=== PATIENT | female | born 1975 | race Caucasian/White ===

== ENCOUNTER → 2017-08-25 15:59 | Outpatient (CLI) | payer OTHER, SELFPAY | PROVIDERS: Family Provider Family Medicine; PCP Family Medicine; Visit Provider Otolaryngology Otolaryngology/Facial Plastic Surgery | DX: J32.9 Chronic sinusitis, unspecified (principal) | CPT/HCPCS: 87070; 87077; 87186; 87205 ==

== ENCOUNTER → 2017-12-21 16:55 | Outpatient (CLI) | payer OTHER, SELFPAY | PROVIDERS: Family Provider Family Medicine; PCP Family Medicine; Visit Provider Otolaryngology Otolaryngology/Facial Plastic Surgery | DX: J32.9 Chronic sinusitis, unspecified (principal); H66.90 Otitis media, unspecified, unspecified ear | CPT/HCPCS: 87070; 87077; 87186; 87205 ==

== ENCOUNTER → 2019-06-09 | Outpatient (CLI) | payer BC, SELFPAY | END | disposition home or self-care (01) | LOC: LABSPEC 15:47 | PROVIDERS: PCP Family Medicine; Referring Provider Otolaryngology; Visit Provider Otolaryngology | DX: J32.9 Chronic sinusitis, unspecified (principal) | CPT/HCPCS: 87070; 87077; 87186; 87205 ==

== ENCOUNTER → 2019-07-05 13:46 | Outpatient (CLI) | payer MEDICAID, SELFPAY ==
--- NOTE | 2019-07-05 13:50 | CT_ITS ---
STUDY: CT FACIAL BONES WITHOUT CONTRAST REASON FOR EXAM: Female, 43 years old. SINUSITIS, SEPTOPLASTY RADIATION DOSAGE (If Supplied By Facility): CTDIvol = ( 33.06 ) mGy, DLP = ( 788.40 ) mGycm TECHNIQUE: The patient was scanned in a multi detector CT scanner. Sagittal and coronal images were reconstructed. Individualized dose optimization techniques were used for this CT. COMPARISON: None. FINDINGS: Normal soft tissue structures. Normal orbital redding and orbital contents. Normal nasal bones and anterior nasal spine. Normal facial bones. There is no demonstrated fracture. Minimal degree of mucosal thickening along the medial wall of the left maxillary sinus. Partial opacification of the ethmoid sinuses bilaterally slightly worse on the left side. There is hypertrophy of the right inferior nasal turbinate. Minimal degree of mucosal thickening of the right frontal sinus. CT/Sinus/Facial Bone IMPRESSION: Mild degree mucosal thickening of the right frontal sinus and left maxillary as well as partial opacification of the ethmoid sinuses. Electronically Signed: Fabian Jackson, at 14:31 EDT , Service support ,
== END ==
PROVIDERS: PCP Family Medicine; Referring Provider Otolaryngology; Visit Provider Otolaryngology
DX: J32.9 Chronic sinusitis, unspecified (principal)
CPT/HCPCS: 70486

== ENCOUNTER → 2019-08-30 | Outpatient (CLI) | payer MEDICAID, SELFPAY | END | disposition home or self-care (01) | LOC: LABSPEC 13:17 | PROVIDERS: PCP Family Medicine; Referring Provider Otolaryngology; Visit Provider Otolaryngology | DX: Z11.59 Encounter for screening for other viral diseases (principal) | CPT/HCPCS: 87635; 94799; G2023; U0004 ==

== ENCOUNTER → 2019-10-31 15:24 | Outpatient (CLI) | payer MEDICAID, SELFPAY | PROVIDERS: PCP Family Medicine; Referring Provider Otolaryngology; Visit Provider Otolaryngology | DX: J32.9 Chronic sinusitis, unspecified (principal) | CPT/HCPCS: 87070; 87077; 87186; 87205 ==

== ENCOUNTER 2020-03-12 13:24 | Outpatient (RCR) | payer MEDICAID, SELFPAY | END 2020-03-12 23:59 | LOC: NS 13:24 | PROVIDERS: PCP Family Medicine; Visit Provider Physician Assistant Surgical | DX: Z71.3 Dietary counseling and surveillance (principal); E66.8 Other obesity; Z68.43 Body mass index [BMI] 50.0-59.9, adult | CPT/HCPCS: 97802 ==

== ENCOUNTER 2024-12-05 07:08 | Day surgery (SDC) | payer BC, SELFPAY ==
--- NOTE | 2024-12-01 13:48 | PAT.ANESEVAL ---
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 When Was Last Pacemaker Check QUESTION #4 FULL TEXT: You/Your Family Experience fever (hyperthermia) with Anesthesia Last Oral Intake Last Oral intake: Last Oral Intake NPO since Meds taken in AM with sips of water? 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 Has anyone observed you stop No 12/01/24 10:35 breathing during sleep? STOP Results Negative 12/01/24 10:35 QUESTION #5 FULL TEXT : Do you snore loudly (louder than talking or can be heard through closed doors)? 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 Specify any problems Hx of Preganancy in last 3 No 12/01/24 10:35 Months Nurse Filling Out Transfusion VLEHMOIRA 12/01/24 10:35 & Questions: Date: 12/01/24 12/01/24 10:35 Time: 10:46 12/01/24 10:35 Patient unable to answer at this time (ie. 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 operator Hx Now No 12/01/24 10:35 Gestational Age (in weeks): EDC: Hx Hx Para Hx Section SAB No 12/01/24 10:35 [facility] Medical History (Updated 12/01/24 @ 10:53 by Kimmy Pate) H/O psoriasis Post-menopausal Wears glasses Depression Anxiety Bruising History of steroid therapy Rheumatoid arthritis DVT (deep venous thrombosis) Easy bruising Migraine headache H/O hemorrhoids History of IBS History of diverticulitis Gastric reflux Shortness of breath on exertion History of echocardiogram Hypertension Home Medications ?Medication ?Instructions ?Recorded ?Last Taken ?Type cholecalciferol (vitamin D3) 1,250 1,250 mcg PO QWEEK 10/13/24 Unknown History mcg (50,000 unit) capsule clonazepam 1 mg tablet 1 mg PO 4X/DAY PRN anxiety 10/13/24 Unknown History dicyclomine 20 mg tablet 20 mg PO TID 10/13/24 Unknown History escitalopram oxalate 20 mg tablet 20 mg PO QDAY 10/13/24 Unknown History hydroxychloroquine 200 mg tablet 200 mg PO BID 10/13/24 Unknown History metoprolol tartrate 25 mg tablet 25 mg PO BID 10/13/24 Unknown History pantoprazole 40 mg tablet,delayed 40 mg PO BID 10/13/24 Unknown History release Allergy/AdvReac Type Severity Reaction Status Date / Time Sulfa (Sulfonamide Allergy NEEDS Verified 12/01/24 10:30 Antibiotics) FOLLOW-UP sulfamethoxazole (From Allergy NEEDS Verified 12/01/24 10:30 Bactrim) FOLLOW-UP trimethoprim (From Bactrim) Allergy NEEDS Verified 12/01/24 10:30 FOLLOW-UP Surgical History (Updated 12/01/24 @ 10:43 by Kimmy Pate) History of surgery History of nasal septoplasty History of cholecystectomy History of carpal tunnel release of both wrists Social History Smoking Status: Never smoker Audit: Pertinent Findings Pertinent Findings EKG Perinent findings: EKG dated 10/28/2023: Sinus rhythm, prolonged [place] interval. Echo (EF%) pertinent findings: Echocardiogram completed 11/27/2023 1. Left ventricle: The cavity size is normal wall thickness is normal. Systolic function is normal. The estimated ejection fraction is 60 to 65%. Wall motion is normal; there are no regional wall motion abnormalities. Normal diastolic function. 2 aortic valve: Thickening, consistent with sclerosis. 3. Right ventricle: Systolic pressure is mildly increased. The RV systolic pressure is by Doppler and is 40 mmHg. 4. Right atrium: The estimated right atrial pressure is 3 mmHg Recommendation Anesthesia Recommendation Anesthesia recommendation: OPTIMIZED for anesthesia
[2024-12-05] VITALS (10 sets, daily range): BP systolic 105–116; BP diastolic 64–76; PULSE 66–71; RESP 16–20; TEMP 36.4–36.5; O2SAT 94–96; BMI 58.3
--- OUTSIDE RECORDS SUMMARY | 2024-12-05 07:12 | XMS RPT_ITS | CCD ---
Author Organization [facility] Care Team Providers Care Turbine Engine Assembler Name Role Phone BERNA MICHEL MD Primary Care Physician Radha PT, Cristina Unavailable Unavailable BERNA MICHEL MD Attending Unavailable BERNA MICHEL MD Primary Care Unavailable BERNA MICHEL MD Attending Unavailable BERNA MICHEL MD Primary Care Unavailable BERNA MICHEL MD Attending Unavailable BERNA MICHEL MD Primary Care Unavailable BERNA MICHEL MD Attending Unavailable BERNA MICHEL MD Primary Care Unavailable DR ROMAINE CARR DO Attending UnavailBERNA Smith MD Primary Care Unavailable BERNA MICHEL MD Attending Unavailable BERNA MICHEL MD Primary Care Unavailable BERNA MICHEL MD Primary Care Unavailable BERNA MICHEL MD Attending Unavailable BERNA MICHEL MD Primary Care Unavailable BERNA MICHEL MD Attending Unavailable BERNA MICHEL MD Attending Unavailable BERNA MICHEL MD Primary Care Unavailable Berna Michel MD Primary Care Provider BERNA MICHEL Primary Care Unavailable EVANS BURDICK Attending Unavailable Dr. Berna Michel MD Primary Care Provider [phone] Dr. Berna Michel MD Referring Provider Peace Gibbs Attending Provider BERNA MICHEL MD Primary Care Unavailable BERNA MICHEL MD Attending Unavailable BERNA MICHEL MD Primary Care Unavailable BERNA MICHEL MD Attending Unavailable BERNA MICHEL MD Primary Care Unavailable BERNA MICHEL MD Attending Unavailable BERNA MICHEL MD Attending Unavailable BERNA MICHEL MD Primary Care Unavailable BERNA MICHEL MD Primary Care Unavailable BERNA MICHEL MD Attending Unavailable BERNA MICHEL MD Primary Care Unavailable CHAR [place], DR MARY CARMEN Gómez Attending UnavailPHIL Portillo MD Attending Unavail BERNA Logan MD Primary Care Unavailable Friend, Jose Attending Unavailable Berna Michel Referring Unavailable Berna Michel Primary Care Unavailable Berna Michel Referring Unavailable Berna Michel Primary Care Unavailable Peace Beaver Attending Unavailable Allergies Allergy Classification Reported Allergen(s) Allergy Type Date of Onset Reaction(s) Facility (13 sources) Propofol; Translations: [propofol] Drug Allergy 07-12-19 Anxiety (finding), Intolerance, Other: See Comments [facility] Comment on above: extreme restlessness (13 sources) Sulfamethoxazole / Trimethoprim; Translations: [sulfamethoxazole-t rimethoprim] Drug Allergy 07-12-19 25 Other: See Comments [facility] (12 sources) Sulfonamides (Antibiotic); Translations: [sulfa drugs] Drug allergy [facility] Comment on above: blood blisters (2 sources) Sulfonamides (Antibiotic); Translations: [SULFA (SULFONAMIDE ANTIBIOTICS)] Drug Allergy 05-29-19 Rash, Unknown [facility] (1 source) Propofol; Translations: [PROPOFOL ANALOGUES] Propensity to adverse reactions to drug (disorder) 07-12-19 [facility] Repository (1 source) Sulfamethoxazole / Trimethoprim; Translations: [SULFAMETHOXAZOLE-T RIMETHOPRIM] Drug Allergy 07-12-19 [facility] Repository (1 source) Sulfamethoxazole Drug Allergy 10-14-19 NEEDS FOLLOW-UP [facility] (1 source) Sulfonamides (Antibiotic) Allergy to substance 10-14-19 NEEDS FOLLOW-UP [facility] (1 source) Trimethoprim Drug Allergy 10-14-19 NEEDS FOLLOW-UP [facility] (1 source) Sulfamethoxazole Drug Allergy 12-02-19 [facility] Repository (1 source) Sulfonamides (Antibiotic) Drug allergy (disorder) 12-02-19 [facility] Repository (1 source) Trimethoprim Drug Allergy 12-02-19 [facility] Repository Medications Current Medications Medication Drug Class(es) Dates Sig (Normalized) Sig (Original) acetaminophen 300 mg / butalbital 50 mg / caffeine 40 mg oral capsule (3 sources) Barbiturate, Central Nervous System Stimulant, Methylxanthine Start: 05-21-2023 take 1 capsule by mouth every four hours as needed for headache acetaminophen/but albital/caffeine 300 mg-50 mg-40 mg oral capsule Dose = 2 cap(s), Oral, q4h, PRN for headache, # 30 cap(s), 1 Refill(s), Pharmacy: [facility] #[id number], Benign essential hypertension Chronic migraine without aura, with intractable migraine, so stated, with status migrainosus, 158, cm, 05/21/23 7:03:00 EST, Height, kg, 05/21/23 7:03:00 EST, Dosing Weight Start Date: 05/21/23 Status: Ordered albuterol 0.83 mg/ml inhalation solution (9 sources) beta2-Adrenergic Agonist Start: 11-25-2023 albuterol (PROVENTIL) 2.5 mg /3 mL (0.083 %) nebulizer solution 2.5 mg as needed. 11/25/2023 Active Start: 11-25-2023 take 1 dose by inhal ation every six hours as needed albuterol 2.5 mg/3 mL (0.083%) inhalation solution Dose : 2.5 mg = 3 mL, Inhalation, q6h, PRN as needed for wheezing, # 1,080 mL, 3 Refill(s), Pharmacy: [facility] #[id number], Benign essential hypertension, 158, cm, 11/05/23 7:04:00 EDT, Height, kg, 11/05/23 7:04:00 EDT, Dosing Weight Start Date: 11/25/23 Status: Ordered Quantity: 1080.0 Unit: mL Repeat number: 4 Indications: Essential (primary) hypertension; Start: 09-26-2022 take 1 dose by inhal ation every six hours as needed albuterol 2.5 mg/3 mL (0.083%) inhalation solution Dose : 2.5 mg = 3 mL, Inhalation, q6h, PRN as needed for wheezing, # 90 mL, 0 Refill(s), Pharmacy: [facility] #[id number], Benign essential hypertension, 159, cm, 09/26/22 7:30:00 EDT, Height Start Date: 09/26/22 Status: Ordered cholecalciferol 1.25 mg oral capsule (1 source) Vitamin D Start: 10-13-2024 take 1 capsule by mouth every week Cholecalciferol (Vitamin D3) 1,250 mcg (50,000 unit) capsule Active 1250 ug PO EVERY WEEK October 13, 2024 12:00am ciprofloxacin 750 mg oral tablet (1 source) Quinolone Antimicrobial Start: 12-26-2022 End: 01-16-2023 ciprofloxacin 750 mg oral tablet Dose : 750 mg = 1 tab(s), Oral, q12h, X 21 day(s), # 42 tab(s), 0 Refill(s), 01/16/23 8:41:00 AM EDT, Pharmacy: [facility] #[id number], Chronic sinusitis Iron deficiency anemia, 159, cm, 12/26/22 7:26:00 EDT, Height, 149.2, kg, 12/26/22 7:26:00 EDT, Dosing Weight Start Date: 12/26/22 Stop Date: 01/16/23 Status: Ordered clonazePAM 1 mg oral tablet (14 sources) Benzodiazepine Start: 10-13-2024 take 1 tablet by mouth four times daily Clonazepam 1 mg tablet Active 1 mg PO 4 TIMES DAILY October 13, 2024 12:00am Start: 07-28-2024 End: 01-24-2025 clonazePAM 1 mg oral tablet Dose : 1 mg = 1 tab(s), Oral, QID, # 360 tab(s), 1 Refill(s), Pharmacy: [facility] #[id number], Anxiety, 155.8, cm, 07/28/24 15:53:00 EDT, Height, 148.8, kg, 07/28/24 15:53:00 EDT, Dosing Weight Start Date: 07/28/24 Stop Date: 01/24/25 Status: Ordered Quantity: 360.0 Unit: tab(s) Repeat number: 2 Indications: Anxiety disorder, unspecified; Start: 10-23-2023 End: 02-23-2024 clonazePAM 1 mg oral tablet Dose : 1 mg = 1 tab(s), Oral, QID, # 360 tab(s), 0 Refill(s), Pharmacy: [facility] #[id number], Anxiety, 158, cm, 11/05/23 7:04:00 EDT, Height, 154.8, kg, 11/05/23 7:04:00 EDT, Dosing Weight Start Date: 11/25/23 Stop Date: 02/23/24 Status: Ordered Start: 05-30-2022 End: 02-17-2023 clonazePAM 1 mg oral tablet Dose : 1 mg = 1 tab(s), Oral, TID, as needed, # 270 tab(s), 0 Refill(s), Pharmacy: [facility] #[id number], Anxiety, 159, cm, 09/26/22 7:30:00 EDT, Height, 147.2, kg, 09/26/22 7:30:00 EDT, Dosing Weight Start Date: 11/19/22 Stop Date: 02/17/23 Status: Ordered Start: 09-05-2021 End: 12-04-2021 clonazePAM 1 mg oral tablet Dose : 1 mg = 1 tab(s), Oral, TID, as needed, # 270 tab(s), 0 Refill(s), Pharmacy: [facility] Anxiety, 160, cm, 06/04/21 7:27:00 EST, Height, 129.2, kg, 06/04/21 7:27:00 EST, Dosing Weight Start Date: 09/05/21 Stop Date: 12/04/21 Status: Ordered Start: 02-11-2021 End: 05-12-2021 clonazePAM 1 mg oral tablet Dose : 1 mg = 1 tab(s), Oral, TID, as needed, # 270 tab(s), 0 Refill(s), Pharmacy: [facility] Anxiety, 155, cm, 01/02/21 17:11:00 EDT, Height, 124.4, kg, 01/02/21 17:11:00 EDT, Dosing Weight Start Date: 02/11/21 Stop Date: 05/12/21 Status: Ordered dicyclomine hydrochloride 20 mg oral tablet (14 sources) Anticholinergic Start: 10-13-2024 take 1 tablet by mouth three times daily Dicyclomine 20 mg tablet Active 20 mg PO THREE TIMES A DAY October 13, 2024 12:00am Start: 11-25-2023 End: 01-24-2024 dicyclomine 20 mg oral table t Dose : 20 mg = 1 tab(s), Oral, TID, # 90 tab(s), 1 Refill(s), Pharmacy: [facility] #[id number], Benign essential hypertension Acute sinusitis, 158, cm, 11/05/23 7:04:00 EDT, Height, kg, 11/05/23 7:04:00 EDT, Dosing Weight Start Date: 11/25/23 Stop Date: 01/24/24 Status: Ordered Quantity: 90.0 Unit: tab(s) Repeat number: 2 Indications: Acute sinusitis, unspecified; Essential (primary) hypertension; Start: 05-21-2023 End: 07-20-2023 dicyclomine 20 mg oral table t Dose : 20 mg = 1 tab(s), Oral, TID, # 90 tab(s), 1 Refill(s), Pharmacy: [facility] #[id number], Benign essential hypertension Acute sinusitis, 158, cm, 05/21/23 7:03:00 EST, Height, kg, 05/21/23 7:03:00 EST, Dosing Weight Start Date: 05/21/23 Stop Date: 07/20/23 Status: Ordered Start: 08-28-2022 End: 11-25-2022 dicyclomine 20 mg oral table t Dose : 20 mg = 1 tab(s), Oral, TID, # 90 tab(s), 1 Refill(s), Pharmacy: [facility] #[id number], Benign essential hypertension Acute sinusitis, 159, cm, 09/26/22 7:30:00 EDT, Height, kg, 09/26/22 7:30:00 EDT, Dosing Weight Start Date: 09/26/22 Stop Date: 11/25/22 Status: Ordered Start: 05-30-2022 End: 07-29-2022 dicyclomine 20 mg oral table t Dose : 20 mg = 1 tab(s), Oral, TID, # 90 tab(s), 1 Refill(s), Pharmacy: [facility] #[id number], Benign essential hypertension Acute sinusitis, 158.6, cm, 05/30/22 7:30:00 EST, Height Start Date: 05/30/22 Stop Date: 07/29/22 Status: Ordered Start: 11-12-2021 dicyclomine 10 mg oral capsule Dose : 10 mg = 1 cap(s), Oral, QID, PRN abdominal discomfort, # 120 cap(s), 0 Refill(s), Pharmacy: [facility] #[id number], 160, cm, 06/04/21 7:27:00 EST, Height Start Date: 11/12/21 Status: Ordered Start: 03-04-2021 End: 03-14-2021 dicyclomine 10 mg oral capsu le Dose : 10 mg = 1 cap(s), Oral, QID, PRN abdominal discomfort, 0 Refill(s) Start Date: 03/04/21 Stop Date: 03/14/21 Status: Ordered escitalopram 20 mg oral tablet (14 sources) Serotonin Reuptake Inhibitor Start: 10-13-2024 take 1 tablet by mouth once daily Escitalopram Oxalate 20 mg tablet Active 20 mg PO daily October 13, 2024 12:00am Start: 09-27-2024 escitalopram 2 0 mg oral tablet Dose : 20 mg = 1 tab(s), Oral, Daily, # 90 tab(s), 3 Refill(s), Pharmacy: [facility] #[id number], Depression, major, recurrent, in remission, 155.8, cm, 09/12/24 13:03:00 EDT, Height, kg, 09/12/24 13:39:00 EDT, Dosing Weight Start Date: 09/27/24 Status: Ordered Quantity: 90.0 Unit: tab(s) Repeat number: 4 Indications: Major depressive disorder, recurrent, in remission, unspecified; Start: 05-30-2020 escitalopram 2 0 mg oral tablet Dose : 20 mg = 1 tab(s), Oral, Daily, # 90 tab(s), 3 Refill(s), Pharmacy: [facility] #[id number], Depression, major, recurrent, in remission, 158, cm, 11/05/23 7:04:00 EDT, Height, kg, 11/05/23 7:04:00 EDT, Dosing Weight Start Date: 11/25/23 Status: Ordered Quantity: 90.0 Unit: tab(s) Repeat number: 4 Indications: Major depressive disorder, recurrent, in remission, unspecified; hydroCHLOROthiazide 25 mg oral tablet (1 source) Thiazide Diuretic Start: 01-08-2024 hydroCHLOROthiazide 25 mg oral tablet Dose : 25 mg = 1 tab(s), Oral, qDay, # 30 tab(s), 0 Refill(s), Pharmacy: [facility] #[id number], 158, cm, 12/01/23 11:29:00 EDT, Height, kg, 12/01/23 11:29:00 EDT, Dosing Weight Start Date: 01/08/24 Status: Ordered hydrocortisone acetate 25 mg rectal suppository (1 source) Corticosteroid Start: 07-03-2022 hydrocortisone (HEMORRHOIDAL HC) 25 mg suppository insert 1 suppository rectally at bedtime for 10 NIGHTS 07/03/2022 Active hydroxychloroquine sulfate 200 mg oral tablet (15 sources) Antimalarial, Antirheumatic Agent Start: 10-13-2024 take 1 tablet by mouth twice daily Hydroxychloroquine 200 mg tablet Active 200 mg PO TWICE A DAY October 13, 2024 12:00am Start: 12-03-2020 End: 07-11-2024 hydroxychloroquine 200 mg or al tablet Dose : 200 mg = 1 tab(s), Oral, BID, 0 Refill(s) Start Date: 12/03/20 Status: Ordered Repeat number: 1 K2-D3 5000 125 mcg (5000 intl units)-90 mcg oral capsule (3 sources) Start: 09-12-2024 K2-D3 5000 125 mcg (5000 intl units)-90 mcg oral capsule Dose = 1 cap(s), Oral, qDayM, # 60 cap(s), 0 Refill(s) Start Date: 09/12/24 Status: Ordered Quantity: 60.0 Unit: cap(s) Repeat number: 1 meloxicam 15 mg oral tablet (3 sources) Nonsteroidal Anti-inflammatory Drug Start: 12-03-2020 End: 11-28-2021 meloxicam 15 mg oral tablet Dose : 15 mg = 1 tab(s), Oral, qDay, # 90 tab(s), 3 Refill(s), Pharmacy: [facility] 158, cm, 12/03/20 10:06:00 EDT, Height, kg, 12/03/20 10:06:00 EDT, Dosing Weight Start Date: 12/03/20 Stop Date: 11/28/21 Status: Ordered metoprolol tartrate 25 mg oral tablet (14 sources) beta-Adrenergic Sandoval Start: 10-13-2024 take 1 tablet by mouth twice daily Metoprolol Tartrate 25 mg tablet Active 25 mg PO TWICE A DAY October 13, 2024 12:00am Start: 05-30-2020 End: 03-03-2024 metoprolol tartrate 25 mg or al tablet Dose : 25 mg = 1 tab(s), Oral, BID, # 180 tab(s), 3 Refill(s), Pharmacy: [facility] #[id number], 158, cm, 11/05/23 7:04:00 EDT, Height, kg, 11/05/23 7:04:00 EDT, Dosing Weight Start Date: 11/25/23 Stop Date: 03/03/24 Status: Ordered Quantity: 180.0 Unit: tab(s) Repeat number: 4 ondansetron 4 mg oral tablet (4 sources) Serotonin-3 Receptor Antagonist Start: 09-12-2024 End: 09-13-2025 ondansetron 4 mg oral tablet Dose : 4 mg = 1 tab(s), Oral, q6h, PRN Nausea/Vomiting, # 20 tab(s), 0 Refill(s), 09/13/25 2:51:00 PM EDT Start Date: 09/12/24 Stop Date: 09/13/25 Status: Ordered Quantity: 20.0 Unit: tab(s) Repeat number: 1 Start: 10-12-2021 End: 10-17-2021 take 1 tablet by mouth every eight hours Zofran ODT use ondansetron oral tablet, disintegrating Dose : 4 mg =, Oral, q8h, # 15 tab(s), 0 Refill(s), Diverticulitis Start Date: 10/12/21 Stop Date: 10/17/21 Status: Ordered pantoprazole 40 mg delayed release oral tablet (15 sources) Proton Pump Inhibitor Start: 05-30-2022 End: 05-18-2025 take 1 tablet by mouth twice daily Pantoprazole 40 mg tablet,delayed release (DR/EC) Active 40 mg PO TWICE A DAY October 13, 2024 12:00am Start: 08-29-2020 End: 05-11-2022 pantoprazole 40 mg oral ente rodney coated tablet Dose : 40 mg = 1 tab(s), Oral, BID, # 60 tab(s), 5 Refill(s), Pharmacy: [facility] #[id number], 160, cm, 06/04/21 7:27:00 EST, Height, kg, 06/04/21 7:27:00 EST, Dosing Weight Start Date: 11/12/21 Stop Date: 05/11/22 Status: Ordered phentermine hydrochloride 37.5 mg oral tablet (3 sources) Sympathomimetic Amine Anorectic Start: 10-23-2023 End: 02-23-2024 phentermine 37.5 mg oral tablet Dose : 37.5 mg = 1 tab(s), Oral, qAM, X 30 day(s), # 30 tab(s), 2 Refill(s), 02/23/24 7:35:00 AM EST, Pharmacy: [facility] #[id number], Morbid obesity with body mass index of 50 or higher, 158, cm, 11/05/23 7:04:00 EDT, Height, 154.8, kg, 11/05/23 7:04:00 EDT, Dosing Weight Start Date: 11/25/23 Stop Date: 02/23/24 Status: Ordered polyethylene glycol 3350 39084 mg powder for oral solution (1 source) Osmotic Laxative Start: 06-29-2022 End: 07-06-2022 take 17 doses by mouth once daily Miralax Powder Packet Dose : 17 gram(s) =, Oral, qDay, X 7 day(s), # 255 gram(s), 0 Refill(s), 07/06/22 13:19:00 EDT Start Date: 06/29/22 Stop Date: 07/06/22 Status: Ordered pseudoephedrine hydrochloride 30 mg oral tablet (1 source) alpha-Adrenergic Agonist pseudoephedrine (SUDAFED) 30 mg tablet 1 tablet. Active Vitamin D3 1250 mcg (50,000 intl units) oral capsule (5 sources) Start: 11-25-2023 End: 11-19-2024 Vitamin D3 1250 mcg (50,000 intl units) oral capsule Dose : 1,250 mcg = 1 cap(s), Oral, qWeek, # 13 cap(s), 3 Refill(s), Pharmacy: [facility] #[id number], Benign essential hypertension, 158, cm, 11/05/23 7:04:00 EDT, Height, kg, 11/05/23 7:04:00 EDT, Dosing Weight Start Date: 11/25/23 Stop Date: 11/19/24 Status: Ordered Quantity: 13.0 Unit: cap(s) Repeat number: 4 Indications: Essential (primary) hypertension; Start: 11-25-2023 End: 11-19-2024 Vitamin D3 1250 mcg (50,000 intl units) oral capsule Dose : 1,250 mcg = 1 cap(s), Oral, qWeek, # 13 cap(s), 3 Refill(s), Pharmacy: [facility] #[id number], Benign essential hypertension, 158, cm, 11/05/23 7:04:00 EDT, Height, kg, 11/05/23 7:04:00 EDT, Dosing Weight Start Date: 11/25/23 Stop Date: 11/19/24 Status: Ordered Start: 09-26-2022 End: 09-21-2023 Vitamin D3 1250 mcg (50,000 intl units) oral capsule Dose : 1,250 mcg = 1 cap(s), Oral, qWeek, # 13 cap(s), 3 Refill(s), Pharmacy: [facility] #[id number], Benign essential hypertension, 159, cm, 09/26/22 7:30:00 EDT, Height Start Date: 09/26/22 Stop Date: 09/21/23 Status: Ordered vitamin D3-vitamin K2 1,250- 200 mcg cap (1 source) Start: 11-25-2023 End: 11-19-2024 vitamin D3-vitamin K2 1,250- 200 mcg cap Take by mouth once daily. 11/25/2023 11/19/2024 Active Completed/Discontinued Medications Medication Drug Class(es) Dates Sig (Normalized) Sig (Original) apixaban 5 mg oral tablet (2 sources) Factor Xa Inhibitor Start: 10-28-2023 End: 11-27-2023 Eliquis Starter Pack for Treatment of DVT and PE 5 mg oral tablet [10mg BID x 7days-then 5mg BID], Oral, BID, # 74 tab(s), 0 Refill(s), DVT Treatment Dosing, Pharmacy: [facility] #[id number], 158, cm, 10/23/23 9:04:00 EDT, Height, 156, kg, 10/23/23 9:04:00 EDT, Dosing Weight Start Date: 10/28/23 Stop Date: 11/27/23 Status: Ordered ferrous gluconate 324 mg oral tablet (8 sources) Start: 10-23-2023 End: 05-23-2024 ferrous gluconate 324 mg (38 mg elemental iron) oral tablet Dose : 324 mg = 1 tab(s), Oral, BID, # 180 tab(s), 1 Refill(s), Pharmacy: [facility] #[id number], Chronic sinusitis Iron deficiency anemia, 158, cm, 11/05/23 7:04:00 EDT, Height, kg, 11/05/23 7:04:00 EDT, Dosing Weight Start Date: 11/25/23 Stop Date: 05/23/24 Status: Ordered Quantity: 180.0 Unit: tab(s) Repeat number: 2 Indications: Chronic sinusitis, unspecified; Iron deficiency anemia, unspecified; Start: 12-26-2022 End: 06-24-2023 ferrous gluconate 324 mg (38 mg elemental iron) oral tablet Dose : 324 mg = 1 tab(s), Oral, BID, # 180 tab(s), 1 Refill(s), Pharmacy: [facility] #[id number], Chronic sinusitis Iron deficiency anemia, 159, cm, 12/26/22 7:26:00 EDT, Height, kg, 12/26/22 7:26:00 EDT, Dosing Weight Start Date: 12/26/22 Stop Date: 06/24/23 Status: Ordered Problems Active Problems Problem Classification Problem Date Documented Da te Episodic/Chronic Abdominal pain (5 sources) Abdominal pain; Translations: [Unspecified abdominal pain] Onset: 2 Episodic Anxiety disorders (19 sources) Anxiety; Translations: [Generalized anxiety disorder] 11-25-2018 Chronic Deficiency and other anemia (8 sources) Iron deficiency anemia 12-26-2022 Episodic Deficiency and other anemia (6 sources) Anemia 11-05-2023 Episodic Disorders of lipid metabolism (20 sources) Hypercholesterolemia; Translations: [Mixed hyperlipidemia] Onset: 3 10-26-2014 Chronic Esophageal disorders (13 sources) Gastroesophageal reflux disease; Translations: [Gastro-esophageal reflux disease without esophagitis] 10-26-2014 Chronic Essential hypertension (20 sources) Benign essential hypertension; Translations: [Hypertensive disorder] Onset: 3 12-21-2018 Chronic Gastrointestinal hemorrhage (1 source) Hemorrhage of rectum and anus; Translations: [Hemorrhage of anus and rectum] Onset: 3 Episodic Headache; including migraine (12 sources) Refractory migraine without aura 11-25-2018 Chronic Mood disorders (20 sources) Depressive disorder; Translations: [Major depressive disorder] Onset: 5 10-26-2014 Chronic Nutritional deficiencies (8 sources) Vitamin D deficiency 09-26-2022 Chronic Other and unspecified benign neoplasm (4 sources) History of adenomatous polyp of colon 07-28-2024 Episodic Other and unspecified benign neoplasm (1 source) History of polyp of colon; Translations: [History of colonic polyps] 10-13-2024 Episodic Other gastrointestinal disorders (20 sources) Irritable bowel syndrome 11-25-2018 Chronic Other gastrointestinal disorders (1 source) H/O: gastrointestinal disease; Translations: [Personal history of other diseases of the digestive system] 07-11-2024 Episodic Other gastrointestinal disorders (1 source) Personal history of other diseases of the digestive system; Translations: [History of diverticulosis] Onset: 5 Episodic Other gastrointestinal disorders (1 source) Constipation; Translations: [Constipation, unspecified] 10-13-2024 Episodic Other inflammatory condition of skin (7 sources) Psoriasis 03-26-2023 Chronic Other lower respiratory disease (12 sources) Snoring 03-04-2021 Episodic Other lower respiratory disease (1 source) Dyspnea; Translations: [Dyspnea, unspecified] Onset: 4 Episodic Other lower respiratory disease (7 sources) Dyspnea on exertion; Translations: [Other forms of dyspnea] 11-05-2023 Episodic Other lower respiratory disease (6 sources) Wheezing 11-05-2023 Episodic Other lower respiratory disease (1 source) Hypoxia; Translations: [Hypoxemia] 07-11-2024 Episodic Other lower respiratory disease (1 source) Other forms of dyspnea; Translations: [MUNOZ (dyspnea on exertion)] Onset: 5 Episodic Other lower respiratory disease (1 source) Hypoxemia; Translations: [Hypoxia] Onset: 5 Episodic Other nutritional; endocrine; and metabolic disorders (9 sources) Morbid obesity 05-30-2022 Chronic Other upper respiratory infections (8 sources) Chronic sinusitis 12-26-2022 Chronic Other upper respiratory infections (9 sources) Acute sinusitis 05-30-2022 Episodic Pleurisy; pneumothorax; pulmonary collapse (6 sources) Atelectasis 11-05-2023 Episodic Rheumatoid arthritis and related disease (2 sources) Rheumatoid arthritis, unspecified; Translations: [Rheumatoid arthritis, unspecified] Onset: 3 Chronic Unclassified (12 sources) Blood clot (morphologic abnormality) 10-26-2014 Comment on above: right foot Unclassified (4 sources) Pain of knee region 07-28-2024 Unclassified (4 sources) Patient encounter status 07-28-2024 Unclassified (1 source) Personal history of colon polyps, unspecified; Translations: [Personal history of colon polyps, unspecified] Onset: 5 Viral infection (9 sources) Disease caused by 2019-nCoV 03-08-2022 Past or Other Problems Problem Classification Problem Date Documented Da te Episodic/Chronic Deficiency and other anemia (2 sources) Anemia, unspecified; Translations: [Anemia, unspecified] Onset: 12-22-2022 Episodic Nausea and vomiting (13 sources) Postoperative nausea and vomiting; Translations: [Vomiting, unspecified] Onset: 07-11-2024 03-04-2021 Episodic Other gastrointestinal disorders (1 source) Diarrhea, unspecified; Translations: [Diarrhea, unspecified] Onset: 07-11-2024 Episodic Other lower respiratory disease (1 source) Shortness of breath; Translations: [Shortness of breath] Onset: 08-05-2024 Episodic Other non-traumatic joint disorders (2 sources) Pain in right knee; Translations: [Pain of right knee joint] Onset: 08-05-2024 Episodic Other screening for suspected conditions (not mental disorders or infectious disease) (10 sources) D-dimer above reference range; Translations: [Encounter for screening mammogram for malignant neoplasm of breast] Onset: 08-05-2024 10-28-2023 Episodic Results Test Name Value Interpretation Reference Range Facility MR/[facility] 12-01-2024 [facility] Medical Records Department [address] [place] [address] PAT - Anesthesia 12/01/24 1348 MR#: [id number] Acct: [id number] Name: RAIN MURPHY Rep #: [id number] : 1975 49 From: James Rivera MD PCP: Dr. Berna Michel MD Status:PRE [facility] [place] Race: C Location: [place] Pre-Assessment Diagnosis/Proposed Procedure Planned Operative Procedure(s): EGD, COLONOSCOPY Anesthesia History Anesthesia History - pulmonology technician: Anesthesia History - pulmonology technician Hx Hospitalization Any Problems With Anesthesia Yes: PROPOFOL-AGGITATED WITH 12/01/24 10:35 INITIAL DOSE, NEEDED MORE Cholinesterase deficiency No 12/01/24 10:35 You/Your Family Experience No 12/01/24 10:35 fever (hyperthermia) with Relationship Recent Exposure to Contagious Disease Does patient have nerve No 12/01/24 10:35 stimulator Patient instructed to have device shut off --Does patient have Pacemaker or ICD? When Was Last Pacemaker Check QUESTION #4 FULL TEXT: You/Your Family Experience fever (hyperthermia) with Anesthesia Last Oral Intake Last Oral intake: Last Oral Intake NPO since Meds taken in AM with sips of water? 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 - pulmonology technician: PONV - pulmonology technician Female Yes 12/01/24 10:35 HX of Motion Sickness No 12/01/24 10:35 HX of N/V After Surgery Yes 12/01/24 10:35 Non-Smoker Yes 12/01/24 10:35 Duration of Surgery greater No 12/01/24 10:35 than 60 minutes Number of Risk Factors 3 12/01/24 10:35 PONV Score Moderate Risk 12/01/24 10:35 Height Weight Height Weight: Anesthesia: Height Weight Height 5 ft 1 in 03/13/20 00:08 Respiratory Assessment Respiratory Assessment - pulmonology technician: Respiratory Tract Infection Hx - pulmonology technician Hx Respiratory Tract Infection No 12/01/24 10:35 STOP Sleep Apnea STOP Sleep Apnea - pulmonology technician: STOP Sleep Apnea - pulmonology technician Hx Hypertension Yes 12/01/24 10:35 Hx Sleep Apnea No 12/01/24 10:35 CPAP BIPAP Do you snore loudly (louder No 12/01/24 10:35 than talking or can be heard Do you often feel tired/ No 12/01/24 10:35 fatigued/ sleepy during daytime? Has anyone observed you stop No 12/01/24 10:35 breathing during sleep? STOP Results Negative 12/01/24 10:35 QUESTION #5 FULL TEXT : Do you snore loudly (louder than talking or can be heard through closed doors)? 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 Specify any problems Hx of Preganancy in last 3 No 12/01/24 10:35 Months Nurse Filling Out Transfusion [facility] 12/01/24 10:35 Questions: Date: 12/01/24 12/01/24 10:35 Time: 10:46 12/01/24 10:35 Patient unable to answer at this time (ie. confused, unrespo /Reproduction History /Reproductive History - pulmonology technician: /Reproductive Hx- pulmonology technician Hx Now No 12/01/24 10:35 Gestational Age (in weeks): EDC: Hx Hx Para Hx Section SAB No 12/01/24 10:35 PFS Medical History (Updated 12/01/24 @ 10:53 by Kimmy Pate) H/O psoriasis Post-menopausal Wears glasses Depression Anxiety Bruising History of steroid therapy Rheumatoid arthritis DVT (deep venous thrombosis) Easy bruising Migraine headache H/O hemorrhoids History of IBS History of diverticulitis Gastric reflux Shortness of breath on exertion History of echocardiogram Hypertension Home Medications ???Medication ???Instructions ???Recorded ???Last Taken ???Type cholecalciferol (vitamin D3) 1,250 1,250 mcg PO QWEEK 10/13/24 Unkn own History mcg (50,000 unit) capsule clonazepam 1 mg tablet 1 mg PO 4X/DAY PRN anxiety 5 Unknown History dicyclomine 20 mg tablet 20 mg PO TID 10/13/24 Unknown Hist ory escitalopram oxalate 20 mg tablet 20 mg PO QDAY 10/13/24 Unknown Hi story hydroxychloroquine 200 mg tablet 200 mg PO BID 10/13/24 Unknown His tory metoprolol tartrate 25 mg tablet 25 mg (more content not included)... Normal [facility] Gastroenterology Visit Repor ton 10-13-2024 Gastroenterology Visit Report [facility] Gastroenterology [address] [place] [address] OFFICE VISIT Date of Service: 10/13/24 MR#: [id number] Acct: [id number] Name: RAIN MURPHY Rep #: [id number] : 1975 Provider: HECTOR [place] Age/Sex: 48/F Location: [facility] [place] Status: Signed Intake Vital Signs 03/13/20 00:08 Height 5 ft 1 in Intake Visit Reasons: CONSTIPATED NAUSEA CRAMPING VOMITING Chief Complaint: constipation Allergies Sulfa (Sulfonamide Antibiotics) Allergy (Verified 10/13/24 07:38) NEEDS FOLLOW-UP sulfamethoxazole (From Bactrim) Allergy (Verified 10/13/24 07:38) NEEDS FOLLOW-UP trimethoprim (From Bactrim) Allergy (Verified 10/13/24 07:38) NEEDS FOLLOW-UP Medications ???Medication ???Instructions ???Recorded ???Confirmed ???Type cholecalciferol (vitamin D3) 1,250 1,250 mcg PO QWEEK 10/13/2407/05 History mcg (50,000 unit) capsule clonazepam 1 mg tablet 1 mg PO 4X/DAY 10/13/24 10/13/24 H istory dicyclomine 20 mg tablet 20 mg PO TID 10/13/24 10/13/24 His tory escitalopram oxalate 20 mg tablet 20 mg PO QDAY 10/13/24 10/13/24 H istory hydroxychloroquine 200 mg tablet 200 mg PO BID 10/13/24 10/13/24 Hi story metoprolol tartrate 25 mg tablet 25 mg PO BID 10/13/24 10/13/24 His tory pantoprazole 40 mg tablet,delayed 40 mg PO BID 10/13/24 10/13/24 Hi story release Nurse's Note: OV 10/13/24 Pt here to establish care with [facility]. Pt reports nausea, vomiting, diarrhea, constipation, and blood in stool. Pt reports constipation for a few days and then have diarrhea. Pt has hx of colonoscopy and EGD. HPI HPI Chief Complaint: constipation Details: RAIN MURPHY, is a 48 F who presents to the office today for establishment with I. [facility] ED 6.2.25 wiht LLQ pain. Pt with PMHx of diverticulitis. SHe has been having nausea but no vomiting. Blood work was normal. CT with no acute abnormality. Mild diverticulosis with no evidence of diverticulitis. OV 7.3.25 Pt has a hx of intermittent constipation which has worsened in frequency over the past few months. Pt has daily bm but they are small and does not feel complete. She will have loose stools up to two times per week when she has been constipated for awhile. This is accompanied by left lower quadrant cramping and n/v. She does not take any OTC laxatives or fiber supplementation. Last colonoscopy was in 2020 with polyps. Last EGD in 2021. SHe takes PPi twice a day and has breakbothoura heartburn on occasion. ROS Const Constitutional: Positive for fatigue; No fever(s) or weight change ENT ENT: No difficulty swallowing Gastro GI: Positive for constipation, diarrhea, Blood in stool, nausea/dyspepsia and vomiting; No abdominal pain, belching, bloating, change in bowel habits, change in stool character, coffee ground emesis, cramping, heartburn, difficulty swallowing, feeling full early, excessive flatus, incontinent of stools, Vomiting blood/hematemesis, loose stools, Black,tarry stools, pain with swallowing or other Musc Musculoskeletal: Positive for Arthritis; No joint pain Skin Skin: Positive for itchy eyes; No yellowing of the eye Psych Psychiatric: Positive for anxiety and Positive for depression Endo Endocrine: Positive for fatigue; No weight change Aller/Imm Allergy/Immunologic: Positive for itchy eyes Ad/Lymp Hematologic/Lymphatic: No easy bleeding or easy bruising Exam Const General: cooperative and comfortable Orientation: alert HENMT Head: normal to inspection Ears: hearing grossly normal bilaterally Eyes General: appearance normal, both eyes and all related structures Neck Neck: normal visual inspection Chest Chest palpation inspection: normal inspection of the chest Resp Effort Inspection: normal respiratory effort Cardio Rate: regular rate Rhythm: regular rhythm GI Inspection: normal to inspection Auscultation: normal bowel sounds Palpation: soft, not firm and nontender Assessment and Plan Assessment and Plan (1) Constipation: Status: Acute Plan: Rain is a 48 yo female pt with PMHXx of diverticulitis, colonic polyps and constipation here today for worsening constipation over the past few months. SHe has daily bm but are not complete. SHe will eventually have loose stools which is likely overflow. This is accompanied by LLQ cramping and n/v. SHe does not take any OTC laxatives. Last colonoscopy was in 2020 with polyps. Due to hx of polyps adn worsening constipation she will undergo repeat colonoscopy. In the interim, she will start miralax daily or every other day. Will consider Linzess pending response. Pt also with GERD on PPI twice a day with some breakthrough heartburn. She will undergo EGD as well. -EGD and colonoscopy -Start miralax -Consider Linzess -f/u after procedu (more content not included)... Normal [facility] .Auto Diffon 10-03-2024 Basophil, Absolute 0.0 10 3/mcL Normal 0.0-0.3 [facility] Comment on above: Performed By: #### C MP, GFR, ADIFF, LIP, MD BEENAW, CBC #### [id number] [place], [place] [address] Basophils/100 WBC (Bld) 0.5 % Normal 0.0-2.5 [facility] Comment on above: Performed By: #### C MP, GFR, ADIFF, LIP, BEENA, MDW, CBC #### [id number] [place], [place] [address] Eosinophil, Absolute 0.5 10 3/mcL Normal 0.0-0.7 [facility] Comment on above: Performed By: #### C MP, GFR, ADIFF, LIP, ANEU, MDW, CBC #### [address] [address] Eosinophils/100 WBC (Bld) 6.6 % High 0.0-6.0 [facility] Comment on above: Performed By: #### C MP, GFR, ADIFF, LIP, ANEU, MDW, CBC #### [address] [address] Lymphocyte, Absolute 1.7 10 3/mcL Normal 0.9-4.3 [facility] Comment on above: Performed By: #### C MP, GFR, ADIFF, LIP, ANEU, MDW, CBC #### [address] [address] Lymphocytes/100 WBC (Bld) 24.2 % Normal 20.0-40.0 [facility] Comment on above: Performed By: #### C MP, GFR, ADIFF, LIP, ANEU, MDW, CBC #### [address] [address] Monocyte, Absolute 0.5 10 3/mcL Normal 0.1-1.4 [facility] Comment on above: Performed By: #### C MP, GFR, ADIFF, LIP, ANEU, MDW, CBC #### [address] [address] Monocytes/100 WBC (Bld) 6.3 % Normal 2.0-13.0 [facility] Comment on above: Performed By: #### C MP, GFR, ADIFF, LIP, ANEU, MDW, CBC #### [address] [address] Neutrophils/100 WBC (Bld) 62.4 % Normal 50.0-75.0 [facility] Comment on above: Performed By: #### C MP, GFR, ADIFF, LIP, ANEU, MDW, CBC #### [address] [address] .GFRon 10-03-2024 Estimated Glomerular Filtration Rate 68 ml/min/1.73sqm Normal [facility] Comment on above: Result Comment: Stages of Chronic Kidney Disease (CKD) Stage Description eGFR(ml/min/1.73 sq.m.) CKD 1 Normal kidney function or >=90 normal kindney function with possible kidney damage (ex. Proteinuria) CKD 2 Kidney damage with mild loss 60-89 of kidney function CKD 3a Mild to moderate loss of kidney 45-59 function CKD 3b Moderate to severe loss of 30-44 of kindey function CKD 4 Severe loss of kidney function 15-29 CKD 5 Kidney failure <15 Note: (go live 2024) the eGFR calculation was updated to the 2020 CKD-EPI creatinine equation without a race factor to calculate the eGFR results. Performed By: #### C MP, GFR, ADIFF, LIP, ANEU, MDW, CBC #### [address] [address] .NEUABSon 10-03-2024 Neutrophil, Absolute 4.5 10 3/mcL Normal 2.3-8.1 [facility] Comment on above: Performed By: #### C MP, GFR, ADIFF, LIP, ANEU, MDW, CBC #### [address] [address] A1Con 10-03-2024 Glucose [Mass/Vol] 105 mg/dL Normal [facility] Comment on above: Result Comment: Deepti mated Average Glucose calculated by equation ((28.7xA1C)-46.7) Estimated average glucose (eAG) is a calculated value from Hemoglobin A1C and is contact representative of the average blood glucose level in the last 2-3 month period. Normal range: less than 114 mg/dL Performed By: #### C MP, GFR, ADIFF, LIP, ANEU, MDW, CBC #### [address] [address] HbA1c (Bld) [Mass fraction] 5.3 % Normal 4.3-6.4 [facility] Comment on above: Performed By: #### C MP, GFR, ADIFF, LIP, ANEU, MDW, CBC #### [address] [address] CBCon 10-03-2024 Erythrocyte distribution width (RBC) [Ratio] 15.0 % Normal 11.5-15.5 [facility] Comment on above: Performed By: #### C MP, GFR, ADIFF, LIP, ANEU, MDW, CBC #### [address] [address] Hematocrit (Bld) [Volume fraction] 41.3 % Normal 34.0-46.0 [facility] Comment on above: Performed By: #### C MP, GFR, ADIFF, LIP, ANEU, MDW, CBC #### [place] [address] Hgb 13.8 G/dL Normal 12.0-16.0 [facility] Comment on above: Performed By: #### C MP, GFR, ADIFF, LIP, ANEU, MDW, CBC #### [id number] MCH (RBC) [Entitic mass] 28.6 pg Normal 27.0-33.0 [facility] Comment on above: Performed By: #### C MP, GFR, ADIFF, LIP, ANEU, MDW, CBC #### [address] [address] MCHC 33.4 G/dL Normal 32.0-36.0 [facility] Comment on above: Performed By: #### C MP, GFR, ADIFF, LIP, ANEU, MDW, CBC #### [address] [address] MCV (RBC) [Entitic vol] 85.6 fL Normal 80.0-99.0 [facility] Comment on above: Performed By: #### C MP, GFR, ADIFF, LIP, ANEU, MDW, CBC #### [address] [address] Platelet 278 10 3/mcL Normal 150-450 [facility] Comment on above: Performed By: #### C MP, GFR, ADIFF, LIP, ANEU, MDW, CBC #### [address] [address] Platelet mean volume (Bld) [Entitic vol] 7.8 fL Normal 6.6-10.5 [facility] Comment on above: Performed By: #### C MP, GFR, ADIFF, LIP, ANEU, W, CBC #### [address] [address] RBC 4.82 10 6/mcL Normal 4.10-5.30 [facility] Comment on above: Performed By: #### C MP, GFR, ADIFF, LIP, ANEU, W, CBC #### [address] [address] WBC 7.2 10 3/mcL Normal 4.5-10.8 [facility] Comment on above: Performed By: #### C MP, GFR, ADIFF, LIP, HEATHER HARGROVE, CBC #### [address] [address] CMPon 10-03-2024 Albumin Level 3.8 G/dL Normal 3.5-5.0 [facility] Comment on above: Performed By: #### C MP, GFR, ADIFF, LIP, HEATHER HARGROVE, CBC #### [address] [address] Albumin/Globulin [Mass ratio] 0.9 {ratio} Low 1.1-2.5 [facility] Comment on above: Performed By: #### C MP, GFR, ADIFF, LIP, MD BEENAW, CBC #### [address] [address] ALP [Catalytic activity/Vol] 109 U/L Normal 40-135 [facility] Comment on above: Performed By: #### C MP, GFR, ADIFF, LIP, ANEUMDW, CBC #### [address] [address] ALT [Catalytic activity/Vol] 34 U/L Normal 14-59 [facility] Comment on above: Performed By: #### C MP, GFR, ADIFF, LIP, ANEU, MDW, CBC #### [address] [address] AST [Catalytic activity/Vol] 24 U/L Normal 10-40 [facility] Comment on above: Performed By: #### C MP, GFR, ADIFF, LIP, ANEU, MDW, CBC #### [address] [address] Bili Total 0.6 mg/dL Normal 0.2-1.0 [facility] Comment on above: Result Comment: Use of this assay is not recommended for patients undergoing treatment with eltrombopag due to the potential for falsely elevated results. Performed By: #### C MP, GFR, ADIFF, LIP, ANEU, W, CBC #### [address] [address] BUN/Creatinine Ratio 16 ratio Normal 7-27 [facility] Comment on above: Performed By: #### C MP, GFR, ADIFF, LIP, ANEU, MDW, CBC #### [address] [address] Calcium [Mass/Vol] 9.3 mg/dL Normal 8.4-10.2 [facility] Comment on above: Performed By: #### C MP, GFR, ADIFF, LIP, ANEU, MDW, CBC #### [address] [address] Chloride [Moles/Vol] 102 mmol/L Normal 98-107 [facility] Comment on above: Performed By: #### C MP, GFR, ADIFF, LIP, ANEU, MDW, CBC #### [address] [address] CO2 [Moles/Vol] 30 mmol/L High 22-29 [facility] Comment on above: Performed By: #### C MP, GFR, ADIFF, LIP, ANEU, MDW, CBC #### [address] [address] Creatinine [Mass/Vol] 1.01 mg/dL High 0.51-0.95 [facility] Comment on above: Performed By: #### C MP, GFR, ADIFF, LIP, ANEU, MDW, CBC #### [address] [address] Electrolyte Balance 10.0 mEq/L Normal 4.0-15.0 [facility] Comment on above: Performed By: #### C MP, GFR, ADIFF, LIP, ANEU, MDW, CBC #### [address] [address] Globulin 4.3 G/dL Normal 2.7-4.4 [facility] Comment on above: Performed By: #### C MP, GFR, ADIFF, LIP, ANEU, MDW, CBC #### [address] [address] Glucose [Mass/Vol] 102 mg/dL Normal 70-105 [facility] Comment on above: Performed By: #### C MP, GFR, ADIFF, LIP, ANEU, MDW, CBC #### [address] [address] Potassium [Moles/Vol] 4.1 mmol/L Normal 3.5-5.1 [facility] Comment on above: Performed By: #### C MP, GFR, ADIFF, LIP, ANEU, MDW, CBC #### [address] [address] Sodium [Moles/Vol] 142 mmol/L Normal 136-145 [facility] Comment on above: Performed By: #### C MP, GFR, ADIFF, LIP, ANEU, MDW, CBC #### [address] [address] Total Protein 8.1 G/dL Normal 6.4-8.2 [facility] Comment on above: Performed By: #### C MP, GFR, ADIFF, LIP, ANEU, MDW, CBC #### [address] [address] Urea nitrogen [Mass/Vol] 16 mg/dL Normal 7-18 [facility] Comment on above: Performed By: #### C MP, GFR, ADIFF, LIP, ANEU, MDW, CBC #### [id number] [place] [id number] LABORATORYOrdered By: SYSTEM SYSTEM on 10-03-2024 25-hydroxyvitamin D3 [Mass/Vol] 41.6 ng/mL Invalid Interpretation Code AO ADM SS Comment on above: Interpretive Data: I nterpretive Values Based on Total 25(OH) Vitamin D: Deficient <20 ng/mL Insufficient 20 - <30 ng/mL Sufficient 30-100 ng/mL Albumin BCP dye [Mass/Vol] 3.8 G/dL Normal 3.5 - 5.0 G/dL AO ADM SS Albumin/Globulin [Mass ratio] 0.9 {ratio} Low 1.1 - 2.5 ratio AO ADM SS ALP [Catalytic activity/Vol] 109 U/L Normal 40 - 135 U/L AO ADM SS ALT With P-5'-P [Catalytic activity/Vol] 34 U/L Normal 14 - 59 U/L AO ADM SS AST With P-5'-P [Catalytic activity/Vol] 24 U/L Normal 10 - 40 U/L AO ADM SS Basophils (Bld) [#/Vol] 0.0 103/mcL Normal 0.0 - 0.3 10^3/mcL AO Workflow SS Basophils/100 WBC (Bld) 0.5 % Normal 0.0 - 2.5 % AO Workflow SS Bilirubin [Mass/Vol] 0.6 mg/dL Normal 0.2 - 1.0 mg/dL AO ADM SS Comment on above: Interpretive Data: U se of this assay is not recommended for patients undergoing treatment with eltrombopag due to the potential for falsely elevated results. Calcium [Mass/Vol] 9.3 mg/dL Normal 8.4 - 10. 2 mg/dL AO ADM SS Chloride [Moles/Vol] 102 mmol/L Normal 98 - 107 mmol/L AO ADM SS CO2 [Moles/Vol] 30 mmol/L High 22 - 29 mmol/L AO ADM SS Creatinine [Mass/Vol] 1.01 mg/dL High 0.51 - 0.95 mg/dL AO ADM SS Electrolyte Balance 10.0 mEq/L Normal 4.0 - 15.0 mEq/L AO ADM SS Eosinophil, Absolute 0.5 103/mcL Normal 0.0 - 0.7 10^3/mcL AO Workflow SS Eosinophils/100 WBC (Bld) 6.6 % High 0.0 - 6.0 % AO Workflow SS Erythrocyte distribution width (RBC) [Ratio] 15.0 % Normal 11.5 - 15.5 % AO Workflow SS Estimated Glomerular Filtration Rate 68 ml/min/1.73sqm Invalid Interpretation Code AO Chemistry S Comment on above: Interpretive Data: Stages of Chronic Kidney Disease (CKD) Stage Description eGFR(ml/min/1.73 sq.m.) CKD 1 Normal kidney function or >=90 normal kindney function with possible kidney damage (ex. Proteinuria) CKD 2 Kidney damage with mild loss 60-89 of kidney function CKD 3a Mild to moderate loss of kidney 45-59 function CKD 3b Moderate to severe loss of 30-44 of kindey function CKD 4 Severe loss of kidney function 15-29 CKD 5 Kidney failure <15 Note: (go live 2024) the eGFR calculation was updated to the 2020 CKD-EPI creatinine equation without a race factor to calculate the eGFR results. Globulin 4.3 G/dL Normal 2.7 - 4.4 G/dL AO ADM SS Glucose [Mass/Vol] 102 mg/dL Normal 70 - 105 mg/dL AO ADM SS Glucose [Mass/Vol] 105 mg/dL Invalid Interpretation Code AO Chemistry S Comment on above: Interpretive Data: E stimated average glucose (eAG) is a calculated value from Hemoglobin A1C and is contact representative of the average blood glucose level in the last 2-3 month period. Normal range: less than 114 mg/dL HbA1c (Bld) [Mass fraction] 5.3 % Normal 4.3 - 6.4 % AO ADM SS Hematocrit (Bld) [Volume fraction] 41.3 % Normal 34.0 - 46.0 % AO Workflow SS Hemoglobin (Bld) [Mass/Vol] 13.8 G/dL Normal 12.0 - 16.0 G/dL AO Workflow SS Lymphocytes (Bld) [#/Vol] 1.7 103/mcL Normal 0.9 - 4.3 10^3/mcL AO Workflow SS Lymphocytes/100 WBC (Bld) 24.2 % Normal 20.0 - 40.0 % AO Workflow SS MCH (RBC) [Entitic mass] 28.6 pg Normal 27.0 - 33.0 pg AO Workflow SS MCHC 33.4 G/dL Normal 32.0 - 36.0 G/dL AO Workflow SS MCV (RBC) [Entitic vol] 85.6 fL Normal 80.0 - 99.0 fL AO Workflow SS Monocytes (Bld) [#/Vol] 0.5 103/mcL Normal 0.1 - 1.4 10^3/mcL AO Workflow SS Monocytes/100 WBC (Bld) 6.3 % Normal 2.0 - 13.0 % AO Workflow SS Neutrophils (Bld) [#/Vol] 4.5 103/mcL Normal 2.3 - 8.1 10^3/mcL AO Workflow SS Neutrophils/100 WBC (Bld) 62.4 % Normal 50.0 - 75.0 % AO Workflow SS Platelet mean volume (Bld) [Entitic vol] 7.8 fL Normal 6.6 - 10.5 fL AO Workflow SS Platelets (Bld) [#/Vol] 278 103/mcL Normal 150 - 450 10^3/mcL AO Workflow SS Potassium [Moles/Vol] 4.1 mmol/L Normal 3.5 - 5.1 mmol/L AO ADM SS Protein [Mass/Vol] 8.1 G/dL Normal 6.4 - 8.2 G/dL AO ADM SS RBC (Bld) [#/Vol] 4.82 106/mcL Normal 4.10 - 5.30 10^6/mcL AO Workflow SS Sodium [Moles/Vol] 142 mmol/L Normal 136 - 145 mmol/L AO ADM SS Urea nitrogen [Mass/Vol] 16 mg/dL Normal 7 - 18 mg/dL AO ADM SS Urea nitrogen/Creatinin e [Mass ratio] 16 ratio Normal 7 - 27 ratio AO ADM SS WBC (Bld) [#/Vol] 7.2 103/mcL Normal 4.5 - 10.8 10^3/mcL AO Workflow SS LABORATORYOrdered By: Abiola Carlin on 10-03-2024 Cholesterol [Mass/Vol] 198 mg/dL Normal 0 - 200 mg/dL AO ADM SS Comment on above: Interpretive Data: C holesterol Reference Interval: Less than 200 Desirable 200-239 Borderline high risk 240 and above High risk Cholesterol in HDL [Mass/Vol] 40 mg/dL Normal 40 - 60 mg/dL AO ADM SS Cholesterol in LDL [Mass/Vol] 139 mg/dL High 0 - 130 mg/dL AO ADM SS Triglyceride [Mass/Vol] 94 mg/dL Normal 0 - 150 mg/dL AO ADM SS Comment on above: Interpretive Data: T riglyceride Reference Interval: Less than 150 Normal 150-199 Borderline high risk 200-499 High risk 500 or higher Very high risk LIPIDon 10-03-2024 Cholesterol [Mass/Vol] 198 mg/dL Normal 0-200 [facility] Comment on above: Result Comment: Chol esterol Reference Interval: Less than 200 Desirable 200-239 Borderline high risk 240 and above High risk Performed By: #### C MP, GFR, ADIFF, LIP, ANEU, MDW, CBC #### [address] [address] Cholesterol in HDL [Mass/Vol] 40 mg/dL Normal 40-60 [facility] Comment on above: Performed By: #### C MP, GFR, ADIFF, LIP, ANEU, MDW, CBC #### [address] [address] Cholesterol in LDL [Mass/Vol] 139 mg/dL High 0-130 [facility] Comment on above: Performed By: #### C MP, GFR, ADIFF, LIP, ANEU, MDW, CBC #### [address] [address] Triglyceride [Mass/Vol] 94 mg/dL Normal 0-150 [facility] Comment on above: Result Comment: Trig lyceride Reference Interval: Less than 150 Normal 150-199 Borderline high risk 200-499 High risk 500 or higher Very high risk Performed By: #### C MP, GFR, ADIFF, LIP, ANEU, MDW, CBC #### [address] [address] VIDHon 10-03-2024 Vit. D 25-Hydroxy 41.6 ng/mL Normal [facility] Comment on above: Result Comment: Inte rpretive Values Based on Total 25(OH) Vitamin D: Deficient <20 ng/mL Insufficient 20 - <30 ng/mL Sufficient 30-100 ng/mL Performed By: #### C MP, GFR, ADIFF, LIP, ANEU, MDW, CBC #### [address] [address] .Auto Diffon 09-12-2024 Basophil, Absolute 0.0 10 3/mcL Normal 0.0-0.3 [facility] Comment on above: Performed By: #### C MP, GFR, ADIFF, LIP, ANEU, MDW, CBC #### [address] [address] Basophils/100 WBC (Bld) 0.4 % Normal 0.0-2.5 [facility] Comment on above: Performed By: #### C MP, GFR, ADIFF, LIP, ANEU, MDW, CBC #### [address] [address] Eosinophil, Absolute 0.5 10 3/mcL Normal 0.0-0.7 [facility] Comment on above: Performed By: #### C MP, GFR, ADIFF, LIP, ANEU, MDW, CBC #### [address] [address] Eosinophils/100 WBC (Bld) 4.9 % Normal 0.0-6.0 [facility] Comment on above: Performed By: #### C MP, GFR, ADIFF, LIP, ANEU, MDW, CBC #### [address] [address] Lymphocyte, Absolute 1.9 10 3/mcL Normal 0.9-4.3 [facility] Comment on above: Performed By: #### C MP, GFR, ADIFF, LIP, ANEU, MDW, CBC #### [address] [address] Lymphocytes/100 WBC (Bld) 21.1 % Normal 20.0-40.0 [facility] Comment on above: Performed By: #### C MP, GFR, ADIFF, LIP, ANEU, MDW, CBC #### [address] [address] Monocyte, Absolute 0.5 10 3/mcL Normal 0.1-1.4 [facility] Comment on above: Performed By: #### C MP, GFR, ADIFF, LIP, ANEU, MDW, CBC #### [address] [address] Monocytes/100 WBC (Bld) 5.7 % Normal 2.0-13.0 [facility] Comment on above: Performed By: #### C MP, GFR, ADIFF, LIP, ANEU, MDW, CBC #### [address] [address] Neutrophils/100 WBC (Bld) 67.9 % Normal 50.0-75.0 [facility] Comment on above: Performed By: #### C MP, GFR, ADIFF, LIP, ANEU, MDW, CBC #### [address] [address] .GFRon 09-12-2024 Estimated Glomerular Filtration Rate 79 ml/min/1.73sqm Normal [facility] Comment on above: Result Comment: Stages of Chronic Kidney Disease (CKD) Stage Description eGFR(ml/min/1.73 sq.m.) CKD 1 Normal kidney function or >=90 normal kindney function with possible kidney damage (ex. Proteinuria) CKD 2 Kidney damage with mild loss 60-89 of kidney function CKD 3a Mild to moderate loss of kidney 45-59 function CKD 3b Moderate to severe loss of 30-44 of kindey function CKD 4 Severe loss of kidney function 15-29 CKD 5 Kidney failure <15 Note: (go live 2024) the eGFR calculation was updated to the 2020 CKD-EPI creatinine equation without a race factor to calculate the eGFR results. Performed By: #### C MP, GFR, ADIFF, LIP, ANEU, MDW, CBC #### [address] [address] .MDWon 09-12-2024 Monocyte Distribution Width 22.39 High 0.00-20.00 [facility] Comment on above: Result Comment: For adults in ED, MDW>20.0 may be associated with a higher risk of sepsis during the first 12hrs of hospital admission Performed By: #### C MP, GFR, ADIFF, LIP, ANEU, MDW, CBC #### [address] [address] .NEUABSon 09-12-2024 Neutrophil, Absolute 6.3 10 3/mcL Normal 2.3-8.1 [facility] Comment on above: Performed By: #### C MP, GFR, ADIFF, LIP, ANEU, MDW, CBC #### [place] [address] CBCon 09-12-2024 Erythrocyte distribution width (RBC) [Ratio] 14.7 % Normal 11.5-15.5 [facility] Comment on above: Performed By: #### C MP, GFR, ADIFF, LIP, ANEU, MDW, CBC #### [place] [address] Hematocrit (Bld) [Volume fraction] 39.2 % Normal 34.0-46.0 [facility] Comment on above: Performed By: #### C MP, GFR, ADIFF, LIP, ANEU, MDW, CBC #### [place] [address] Hgb 13.2 G/dL Normal 12.0-16.0 [facility] Comment on above: Performed By: #### C MP, GFR, ADIFF, LIP, ANEU, MDW, CBC #### [place] [address] MCH (RBC) [Entitic mass] 28.9 pg Normal 27.0-33.0 [facility] Comment on above: Performed By: #### C MP, GFR, ADIFF, LIP, ANEU, MDW, CBC #### [place] [address] MCHC 33.7 G/dL Normal 32.0-36.0 [facility] Comment on above: Performed By: #### C MP, GFR, ADIFF, LIP, ANEU, MDW, CBC #### [place] [address] MCV (RBC) [Entitic vol] 85.9 fL Normal 80.0-99.0 [facility] Comment on above: Performed By: #### C MP, GFR, ADIFF, LIP, ANEU, MDW, CBC #### [address] [address] Platelet 290 10 3/mcL Normal 150-450 [facility] Comment on above: Performed By: #### C MP, GFR, ADIFF, LIP, ANEU, MDW, CBC #### [address] [address] Platelet mean volume (Bld) [Entitic vol] 7.3 fL Normal 6.6-10.5 [facility] Comment on above: Performed By: #### C MP, GFR, ADIFF, LIP, ANEU, MDW, CBC #### [address] [address] RBC 4.56 10 6/mcL Normal 4.10-5.30 [facility] Comment on above: Performed By: #### C MP, GFR, ADIFF, LIP, ANEU, MDW, CBC #### [address] [address] WBC 9.2 10 3/mcL Normal 4.5-10.8 [facility] Comment on above: Performed By: #### C MP, GFR, ADIFF, LIP, ANEU, MDW, CBC #### [address] [address] CMPon 09-12-2024 Albumin Level 4.0 G/dL Normal 3.5-5.0 [facility] Comment on above: Performed By: #### C MP, GFR, ADIFF, LIP, ANEU, MDW, CBC #### [address] [address] Albumin/Globulin [Mass ratio] 1.0 {ratio} Low 1.1-2.5 [facility] Comment on above: Performed By: #### C MP, GFR, ADIFF, LIP, ANEU, MDW, CBC #### [address] [address] ALP [Catalytic activity/Vol] 115 U/L Normal 40-135 [facility] Comment on above: Performed By: #### C MP, GFR, ADIFF, LIP, ANEU, MDW, CBC #### [address] [address] ALT [Catalytic activity/Vol] 31 U/L Normal 14-59 [facility] Comment on above: Performed By: #### C MP, GFR, ADIFF, LIP, ANEU, MDW, CBC #### [address] [address] AST [Catalytic activity/Vol] 29 U/L Normal 10-40 [facility] Comment on above: Performed By: #### C MP, GFR, ADIFF, LIP, ANEU, MDW, CBC #### [address] [address] Bili Total 0.5 mg/dL Normal 0.2-1.0 [facility] Comment on above: Result Comment: Use of this assay is not recommended for patients undergoing treatment with eltrombopag due to the potential for falsely elevated results. Performed By: #### C MP, GFR, ADIFF, LIP, ANEU, MDW, CBC #### [address] [address] BUN/Creatinine Ratio 26 ratio Normal 7-27 [facility] Comment on above: Performed By: #### C MP, GFR, ADIFF, LIP, ANEU, MDW, CBC #### [address] [address] Calcium [Mass/Vol] 9.6 mg/dL Normal 8.4-10.2 [facility] Comment on above: Performed By: #### C MP, GFR, ADIFF, LIP, ANEU, MDW, CBC #### [address] [address] Chloride [Moles/Vol] 100 mmol/L Normal 98-107 [facility] Comment on above: Performed By: #### C MP, GFR, ADIFF, LIP, ANEU, MDW, CBC #### [address] [address] CO2 [Moles/Vol] 26 mmol/L Normal 22-29 [facility] Comment on above: Performed By: #### C MP, GFR, ADIFF, LIP, ANEU, MDW, CBC #### [address] [address] Creatinine [Mass/Vol] 0.89 mg/dL Normal 0.51-0.95 [facility] Comment on above: Performed By: #### C MP, GFR, ADIFF, LIP, ANEU, MDW, CBC #### [address] [address] Electrolyte Balance 9.0 mEq/L Normal 4.0-15.0 [facility] Comment on above: Performed By: #### C MP, GFR, ADIFF, LIP, ANEU, MDW, CBC #### [address] [address] Globulin 4.1 G/dL Normal 2.7-4.4 [facility] Comment on above: Performed By: #### C MP, GFR, ADIFF, LIP, ANEU, MDW, CBC #### [address] [address] Glucose [Mass/Vol] 96 mg/dL Normal 70-105 [facility] Comment on above: Performed By: #### C MP, GFR, ADIFF, LIP, ANEU, MDW, CBC #### [address] [address] Potassium [Moles/Vol] 4.1 mmol/L Normal 3.5-5.1 [facility] Comment on above: Performed By: #### C MP, GFR, ADIFF, LIP, ANEU, MDW, CBC #### [address] [address] Sodium [Moles/Vol] 135 mmol/L Low 136-145 [facility] Comment on above: Performed By: #### C MP, GFR, ADIFF, LIP, ANEU, MDW, CBC #### [address] [address] Total Protein 8.1 G/dL Normal 6.4-8.2 [facility] Comment on above: Performed By: #### C MP, GFR, ADIFFPANKAJ ANEU, MDW, CBC #### [facility] [address] [place], [place] [address] Urea nitrogen [Mass/Vol] 23 mg/dL High 7-18 [facility] Comment on above: Performed By: #### C MP, GFR, ADIFF, BEENA LIRA MDW, CBC #### [facility] [address] [place], [place] [address] CT ABD/PELVIS W/ IV CONTRAST ONLYon 09-12-2024 CT ABD/PELVIS W/ IV CONTRAST ONLY ORIGINAL EXAMINATION: CT OF THE ABDOMEN AND PELVIS WITH CONTRAST 09/12/2024 2:30 pm TECHNIQUE: CT of the abdomen and pelvis was performed with the administration of intravenous contrast. Multiplanar reformatted images are provided for review. Automated exposure control, iterative reconstruction, and/or weight based adjustment of the mA/kV was utilized to reduce the radiation dose to as low as reasonably achievable. COMPARISON: July 11, 2024 HISTORY: ORDERING SYSTEM PROVIDED HISTORY: Reason for Exam: N/V/D X3 DAYS. LT SIDED ABD PAIN. pain FINDINGS: Degenerative changes are noted in the spine. No other osseous abnormality identified the lung bases are unremarkable. Liver, spleen, adrenal glands and pancreas are unremarkable. Cholecystectomy clips are evident. No kidney abnormality seen. Borderline hector hepatis lymph nodes are evident, similar to the prior exam and presumably reactive or hyperplastic. No adenopathy, free air or free fluid seen. The solid pelvic organs and urinary bladder are grossly normal. Mild sigmoid and left colon diverticulosis is evident without diverticulitis. No other GI tract abnormality seen. No additional contributory finding. IMPRESSION: No acute abnormality identified on this exam. Mild diverticulosis without diverticulitis. Interpreted by: Grace Rivero MD Preliminary Report By: Grace Rivero MD Electronically signed By Grace Rivero MD Dictated Date: 09/12/2024 2:32:51 PM Prelim Date: 09/12/2024 2:36:04 PM Sign Date: 09/12/2024 2:36:04 PM Ordering Provider: ROSA George [facility] LABORATORYOrdered By: SYSTEM SYSTEM on 09-12-2024 Albumin BCP dye [Mass/Vol] 4.0 G/dL Normal 3.5 - 5.0 G/dL AO ADM SS Albumin/Globulin [Mass ratio] 1.0 {ratio} Low 1.1 - 2.5 ratio AO ADM SS ALP [Catalytic activity/Vol] 115 U/L Normal 40 - 135 U/L AO ADM SS ALT With P-5'-P [Catalytic activity/Vol] 31 U/L Normal 14 - 59 U/L AO ADM SS AST With P-5'-P [Catalytic activity/Vol] 29 U/L Normal 10 - 40 U/L AO ADM SS Basophils (Bld) [#/Vol] 0.0 103/mcL Normal 0.0 - 0.3 10^3/mcL AO Workflow SS Basophils/100 WBC (Bld) 0.4 % Normal 0.0 - 2.5 % AO Workflow SS Bilirubin [Mass/Vol] 0.5 mg/dL Normal 0.2 - 1.0 mg/dL AO ADM SS Comment on above: Interpretive Data: U se of this assay is not recommended for patients undergoing treatment with eltrombopag due to the potential for falsely elevated results. Calcium [Mass/Vol] 9.6 mg/dL Normal 8.4 - 10. 2 mg/dL AO ADM SS Chloride [Moles/Vol] 100 mmol/L Normal 98 - 107 mmol/L AO ADM SS CO2 [Moles/Vol] 26 mmol/L Normal 22 - 29 mmol/L AO ADM SS Creatinine [Mass/Vol] 0.89 mg/dL Normal 0.51 - 0.95 mg/dL AO ADM SS Electrolyte Balance 9.0 mEq/L Normal 4.0 - 15.0 mEq/L AO ADM SS Eosinophil, Absolute 0.5 103/mcL Normal 0.0 - 0.7 10^3/mcL AO Workflow SS Eosinophils/100 WBC (Bld) 4.9 % Normal 0.0 - 6.0 % AO Workflow SS Erythrocyte distribution width (RBC) [Ratio] 14.7 % Normal 11.5 - 15.5 % AO Workflow SS Estimated Glomerular Filtration Rate 79 ml/min/1.73sqm Invalid Interpretation Code AO Chemistry S Comment on above: Interpretive Data: Stages of Chronic Kidney Disease (CKD) Stage Description eGFR(ml/min/1.73 sq.m.) CKD 1 Normal kidney function or >=90 normal kindney function with possible kidney damage (ex. Proteinuria) CKD 2 Kidney damage with mild loss 60-89 of kidney function CKD 3a Mild to moderate loss of kidney 45-59 function CKD 3b Moderate to severe loss of 30-44 of kindey function CKD 4 Severe loss of kidney function 15-29 CKD 5 Kidney failure <15 Note: (go live 2024) the eGFR calculation was updated to the 2020 CKD-EPI creatinine equation without a race factor to calculate the eGFR results. Globulin 4.1 G/dL Normal 2.7 - 4.4 G/dL AO ADM SS Glucose [Mass/Vol] 96 mg/dL Normal 70 - 105 mg/dL AO ADM SS Hematocrit (Bld) [Volume fraction] 39.2 % Normal 34.0 - 46.0 % AO Workflow SS Hemoglobin (Bld) [Mass/Vol] 13.2 G/dL Normal 12.0 - 16.0 G/dL AO Workflow SS Lipase [Catalytic activity/Vol] 27 U/L Normal 16 - 77 U/L AO ADM SS Lymphocytes (Bld) [#/Vol] 1.9 103/mcL Normal 0.9 - 4.3 10^3/mcL AO Workflow SS Lymphocytes/100 WBC (Bld) 21.1 % Normal 20.0 - 40.0 % AO Workflow SS MCH (RBC) [Entitic mass] 28.9 pg Normal 27.0 - 33.0 pg AO Workflow SS MCHC 33.7 G/dL Normal 32.0 - 36.0 G/dL AO Workflow SS MCV (RBC) [Entitic vol] 85.9 fL Normal 80.0 - 99.0 fL AO Workflow SS Monocyte distribution width Auto (Bld) [Entitic vol] 22.39 1 High 0.00 - 20.00 AO Workflow SS Comment on above: Result Comment: For adults in ED, MDW>20.0 may be associated with a higher risk of sepsis during the first 12hrs of hospital admission Monocytes (Bld) [#/Vol] 0.5 103/mcL Normal 0.1 - 1.4 10^3/mcL AO Workflow SS Monocytes/100 WBC (Bld) 5.7 % Normal 2.0 - 13.0 % AO Workflow SS Neutrophils (Bld) [#/Vol] 6.3 103/mcL Normal 2.3 - 8.1 10^3/mcL AO Workflow SS Neutrophils/100 WBC (Bld) 67.9 % Normal 50.0 - 75.0 % AO Workflow SS Platelet mean volume (Bld) [Entitic vol] 7.3 fL Normal 6.6 - 10.5 fL AO Workflow SS Platelets (Bld) [#/Vol] 290 103/mcL Normal 150 - 450 10^3/mcL AO Workflow SS Potassium [Moles/Vol] 4.1 mmol/L Normal 3.5 - 5.1 mmol/L AO ADM SS Protein [Mass/Vol] 8.1 G/dL Normal 6.4 - 8.2 G/dL AO ADM SS RBC (Bld) [#/Vol] 4.56 106/mcL Normal 4.10 - 5.30 10^6/mcL AO Workflow SS Sodium [Moles/Vol] 135 mmol/L Low 136 - 145 mmol/L AO ADM SS Urea nitrogen [Mass/Vol] 23 mg/dL High 7 - 18 mg/dL AO ADM SS Urea nitrogen/Creatinin e [Mass ratio] 26 ratio Normal 7 - 27 ratio AO ADM SS WBC (Bld) [#/Vol] 9.2 103/mcL Normal 4.5 - 10.8 10^3/mcL AO Workflow SS LABORATORYOrdered By: Mary Prado on 09-12-2024 Appearance (U) Clear (09/12/24 1:56 PM) Normal Clear AO Auto Urine SS Bilirubin Ql (U) Negative (09/12/24 1:56 PM) Normal Negative AO Auto Urine SS Color (U) Yellow (09/12/24 1:56 PM) Normal AO Auto Urine SS Glucose Test strip (U) [Mass/Vol] Negative Normal Negative AO Auto Urine SS Hemoglobin Auto test strip (U) [Mass/Vol] Negative (09/12/24 1:56 PM) Normal Negative AO Auto Urine SS Ketones Ql (U) Negative Normal Negative AO Auto Urine SS UA Leuk Est Negative (09/12/24 1:56 PM) Normal Negative AO Auto Urine SS UA Nitrite Negative (09/12/24 1:56 PM) Normal Negative AO Auto Urine SS UA pH 6.0 (09/12/24 1:56 PM) Normal 5.0 - 8.0 AO Auto Urine SS UA Protein Negative Normal Negative AO Auto Urine SS UA Spec Grav <=1.005 *ABN* (09/12/24 1:56 PM) Invalid Interpretation Code 1.015-1.02 5 AO Auto Urine SS UA Specimen Type Void (09/12/24 1:56 PM) Normal AO Auto Urine SS UA Urobilinogen 0.2 E.U./dL Normal 0.2-1.0 AO Auto Urine SS LIPon 09-12-2024 Lipase Level 27 U/L Normal 16-77 [facility] Comment on above: Performed By: #### C MP, GFR, ADIFF, LIP, ANEU, MDW, CBC #### [place] [id number] UAon 09-12-2024 Color (U) Yellow Normal [facility] Comment on above: Performed By: #### U A #### [place] [address] Glucose (U) [Mass/Vol] Negative Normal Negative [facility] Comment on above: Performed By: #### U A #### [place] [address] Ketones Ql (U) Negative Normal Negative [facility] Comment on above: Performed By: #### U A #### [place] [address] UA Appear Clear Normal Clear [facility] Comment on above: Performed By: #### U A #### [place] [address] UA Blood Negative Normal Negative [facility] Comment on above: Performed By: #### U A #### [place] [address] UA Leuk Est Negative Normal Negative [facility] Comment on above: Performed By: #### U A #### [place] [address] UA Nitrite Negative Normal Negative [facility] Comment on above: Performed By: #### U A #### [place] [address] UA pH 6.0 Normal 5.0 - 8.0 [facility] Comment on above: Performed By: #### U A #### [place] [id number] UA Protein Negative Normal Negative [facility] Comment on above: Performed By: #### U A #### [place] [id number] UA Spec Grav <=1.005 Abnormal 1.015-1.02 5 [facility] Comment on above: Performed By: #### U A #### [place] [address] UA Specimen Type Void Normal [facility] Comment on above: Performed By: #### U A #### [place] [address] UA Urobilinogen 0.2 E.U./dL Normal 0.2-1.0 [facility] Comment on above: Performed By: #### U A #### [place] [address] Urobilinogen (U) [Mass/Vol] Negative Normal Negative [facility] Comment on above: Performed By: #### U A #### [place] [address] MA MAMMOGRAM SCREENING BILAT ERAL W/TOMOon 08-08-2024 MA MAMMOGRAM SCREENING BILATERAL W/MARCEL ORIGINAL FROM: [place] [address] PROCEDURE FOR: RAIN MURPHY [address] [place] [address] Home: PID#: [id number] Exam#: [id number] : 1975 Age: 48 TO: BERNA HELLER [place] [address] Fax: NO FAX EXAMINATION: SCREENING DIGITAL BILATERAL MAMMOGRAM WITH TOMOSYNTHESIS, 08/05/2024 7:28 am TECHNIQUE: Screening mammography of the bilateral breasts was performed with tomosynthesis. 2D standard and 3D tomosynthesis combination imaging performed through both breasts in the MLO and CC projection. Computer aided detection was utilized in the interpretation of this exam. COMPARISON: 05/24/2018 HISTORY: Breast cancer screening. FINDINGS: BREAST DENSITY: There are scattered areas of fibroglandular density. Benign appearing calcifications in both breast. There are no significant masses or calcifications. IMPRESSION: No mammographic evidence of malignancy. Continued screening with annual mammograms is recommended. Rolando Prince risk calculations, generated with the history provided, report this patient's 10 year risk and lifetime risk for developing breast cancer at 2.9% and 12.8%, respectively. Based on this assessment tool, if the patient's calculated lifetime risk is below 20%, then the patient is considered at average risk for developing breast cancer. If the patient's calculated lifetime risk is at or above 20%, then the patient is considered high risk for developing breast cancer and may be a candidate for supplemental breast MRI screening in addition to annual mammographic screening per the [employer]. I have personally reviewed the images of this examination and agree with the resident's finding and interpretation. BIRADS: BI-RADS: 2: Benign RECALL: 1 year screening RECALL TYPE: mammo LETTER SENT: Normal BI-RADS 1 and 2 Interpreted by: Grace Yo MD Preliminary Report By: Zee Pacheco Electronically signed By Grace Yo MD Dictated Date: 08/08/2024 2:48:40 PM Prelim Date: 08/08/2024 3:59:31 PM Sign Date: 08/08/2024 3:59:31 PM Ordering Provider: BERNA MICHEL Electrical Linesworker: FIORDALIZA AGOSTO RT (R)(M) letter sent: Normal BI-RADS 1 and 2 Mammogram BI-RADS: 2 Benign Normal [facility] .Auto Diffon 07-11-2024 Basophil, Absolute 0.0 10 3/mcL Normal 0.0-0.2 [facility] Comment on above: Performed By: #### C MP, GFR, ADPABLO, PANKAJ, BEENA, MDW, CBC #### [facility] [address] [place], [place] [address] Basophils/100 WBC (Bld) 0.5 % Normal 0.0-2.5 [facility] Comment on above: Performed By: #### C MP, GFR, ADPABLO, LIP, ANEU, MDW, CBC #### [address] [address] Eosinophil, Absolute 0.3 10 3/mcL Normal 0.0-0.7 [facility] Comment on above: Performed By: #### C MP, GFR, ADIFF, LIP, ANEU, MDW, CBC #### [address] [address] Eosinophils/100 WBC (Bld) 4.9 % Normal 0.0-7.0 [facility] Comment on above: Performed By: #### C MP, GFR, ADIFF, LIP, ANEU, MDW, CBC #### [address] [address] Lymphocyte, Absolute 1.8 10 3/mcL Normal 0.9-4.3 [facility] Comment on above: Performed By: #### C MP, GFR, ADIFF, LIP, ANEU, MDW, CBC #### [address] [address] Lymphocytes/100 WBC (Bld) 26.3 % Normal 20.0-40.0 [facility] Comment on above: Performed By: #### C MP, GFR, ADIFF, LIP, ANEU, MDW, CBC #### [address] [address] Monocyte, Absolute 0.4 10 3/mcL Normal 0.1-1.4 [facility] Comment on above: Performed By: #### C MP, GFR, ADIFF, LIP, ANEU, MDW, CBC #### [address] [address] Monocytes/100 WBC (Bld) 6.3 % Normal 2.0-13.0 [facility] Comment on above: Performed By: #### C MP, GFR, ADIFF, LIP, ANEU, MDW, CBC #### [address] [address] Neutrophils/100 WBC (Bld) 62.0 % Normal 50.0-75.0 [facility] Comment on above: Performed By: #### C MP, GFR, ADIFF, LIP, ANEU, MDW, CBC #### [address] [address] .GFRon 07-11-2024 Estimated Glomerular Filtration Rate 67 ml/min/1.73sqm Normal [facility] Comment on above: Result Comment: Stages of Chronic Kidney Disease (CKD) Stage Description eGFR(ml/min/1.73 sq.m.) CKD 1 Normal kidney function or >=90 normal kindney function with possible kidney damage (ex. Proteinuria) CKD 2 Kidney damage with mild loss 60-89 of kidney function CKD 3a Mild to moderate loss of kidney 45-59 function CKD 3b Moderate to severe loss of 30-44 of kindey function CKD 4 Severe loss of kidney function 15-29 CKD 5 Kidney failure <15 Note: (go live 2024) the eGFR calculation was updated to the 2020 CKD-EPI creatinine equation without a race factor to calculate the eGFR results. Performed By: #### C MP, GFR, ADIFF, LIP, ANEU, MDW, CBC #### [address] [address] .MDWon 07-11-2024 Monocyte Distribution Width 22.46 High 0.00-20.00 [facility] Comment on above: Result Comment: For adults in ED, MDW>20.0 may be associated with a higher risk of sepsis during the first 12hrs of hospital admission Performed By: #### C MP, GFR, ADIFF, LIP, ANEU, MDW, CBC #### [address] [address] .NEUABSon 07-11-2024 Neutrophil, Absolute 4.2 10 3/mcL Normal 2.3-8.1 [facility] Comment on above: Performed By: #### C MP, GFR, ADIFF, LIP, ANEU, MDW, CBC #### [address] [address] .Urinalysis Microscopic (AO) on 07-11-2024 UA RBC 0-5 Abnormal None Seen [facility] Comment on above: Performed By: #### C MP, GFR, ADIFF, LIP, ANEU, MDW, CBC #### [address] [address] UA Renal Epithelial Rare Abnormal [facility] Comment on above: Performed By: #### C MP, GFR, ADIFF, LIP, ANEU, MDW, CBC #### [address] [address] UA Squam Epithelial 0-5 Abnormal None Seen [facility] Comment on above: Performed By: #### C MP, GFR, ADIFF, LIP, ANEU, MDW, CBC #### [address] [address] UA WBC 0-5 Abnormal None Seen [facility] Comment on above: Performed By: #### C MP, GFR, ADIFF, LIP, ANEU, MDW, CBC #### [place] [address] CBCon 07-11-2024 Erythrocyte distribution width (RBC) [Ratio] 15.1 % Normal 11.5-15.5 [facility] Comment on above: Performed By: #### C MP, GFR, ADIFF, LIP, ANEU, MDW, CBC #### [place] [address] Hematocrit (Bld) [Volume fraction] 41.2 % Normal 34.0-46.0 [facility] Comment on above: Performed By: #### C MP, GFR, ADIFF, LIP, ANEU, MDW, CBC #### [place] [address] Hgb 13.6 G/dL Normal 12.0-16.0 [facility] Comment on above: Performed By: #### C MP, GFR, ADIFF, LIP, ANEU, MDW, CBC #### [place] [address] MCH (RBC) [Entitic mass] 28.4 pg Normal 27.0-33.0 [facility] Comment on above: Performed By: #### C MP, GFR, ADIFF, LIP, ANEU, MDW, CBC #### [address] [address] MCHC 33.1 G/dL Normal 32.0-36.0 [facility] Comment on above: Performed By: #### C MP, GFR, ADIFF, LIP, ANEU, W, CBC #### [address] [address] MCV (RBC) [Entitic vol] 85.9 fL Normal 80.0-99.0 [facility] Comment on above: Performed By: #### C MP, GFR, ADIFF, LIP, ANEU, W, CBC #### [address] [address] Platelet 277 10 3/mcL Normal 150-450 [facility] Comment on above: Performed By: #### C MP, GFR, ADIFF, LIP, ANEUMDW, CBC #### [address] [address] Platelet mean volume (Bld) [Entitic vol] 7.0 fL Normal 6.6-10.5 [facility] Comment on above: Performed By: #### C MP, GFR, ADIFF, LIP, ANEUHEATHER, CBC #### [address] [address] RBC 4.80 10 6/mcL Normal 4.10-5.30 [facility] Comment on above: Performed By: #### C MP, GFR, ADIFF, LIP, ANEUMDW, CBC #### [address] [address] WBC 6.8 10 3/mcL Normal 4.5-10.8 [facility] Comment on above: Performed By: #### C MP, GFR, ADIFF, LIP, HEATHER [place], CBC #### [address] [address] CMPon 07-11-2024 Albumin Level 3.7 G/dL Normal 3.5-5.0 [facility] Comment on above: Performed By: #### C MP, GFR, ADIFF, LIP, ANEUHEATHER, CBC #### [address] [address] Albumin/Globulin [Mass ratio] 0.9 {ratio} Low 1.1-2.5 [facility] Comment on above: Performed By: #### C MP, GFR, ADIFF, LIP, ANEU, MDW, CBC #### [address] [address] ALP [Catalytic activity/Vol] 120 U/L Normal 40-135 [facility] Comment on above: Performed By: #### C MP, GFR, ADIFF, LIP, ANEU, MDW, CBC #### [address] [address] ALT [Catalytic activity/Vol] 26 U/L Normal 14-59 [facility] Comment on above: Performed By: #### C MP, GFR, ADIFF, LIP, ANEU, MDW, CBC #### [address] [address] AST [Catalytic activity/Vol] 23 U/L Normal 10-40 [facility] Comment on above: Performed By: #### C MP, GFR, ADIFF, LIP, ANEU, MDW, CBC #### [address] [address] Bili Total 0.6 mg/dL Normal 0.2-1.0 [facility] Comment on above: Result Comment: Use of this assay is not recommended for patients undergoing treatment with eltrombopag due to the potential for falsely elevated results. Performed By: #### C MP, GFR, ADIFF, LIP, ANEU, MDW, CBC #### [address] [address] BUN/Creatinine Ratio 17 ratio Normal 7-27 [facility] Comment on above: Performed By: #### C MP, GFR, ADIFF, LIP, ANEU, MDW, CBC #### [address] [address] Calcium [Mass/Vol] 9.4 mg/dL Normal 8.4-10.2 [facility] Comment on above: Performed By: #### C MP, GFR, ADIFF, LIP, ANEU, MDW, CBC #### [address] [address] Chloride [Moles/Vol] 103 mmol/L Normal 98-107 [facility] Comment on above: Performed By: #### C MP, GFR, ADIFF, LIP, ANEU, MDW, CBC #### [place] [id number] CO2 [Moles/Vol] 33 mmol/L High 22-29 [facility] Comment on above: Performed By: #### C MP, GFR, ADIFF, LIP, ANEU, MDW, CBC #### [address] [address] Creatinine [Mass/Vol] 1.02 mg/dL Normal 0.55-1.02 [facility] Comment on above: Result Comment: Test ing performed on Siemens Dimension EXL analyzer using a modified kinetic Oralia technique. Performed By: #### C MP, GFR, ADIFF, LIP, ANEU, MDW, CBC #### [address] [address] Electrolyte Balance 5.0 mEq/L Normal 4.0-15.0 [facility] Comment on above: Performed By: #### C MP, GFR, ADIFF, LIP, ANEU, MDW, CBC #### [place] [id number] Globulin 3.9 G/dL High 1.5-3.8 [facility] Comment on above: Performed By: #### C MP, GFR, ADIFF, LIP, ANEU, MDW, CBC #### [address] [address] Glucose [Mass/Vol] 94 mg/dL Normal 70-105 [facility] Comment on above: Performed By: #### C MP, GFR, ADIFF, LIP, ANEU, MDW, CBC #### [place] [address] Potassium [Moles/Vol] 4.2 mmol/L Normal 3.5-5.1 [facility] Comment on above: Performed By: #### C MP, GFR, ADPANKAJ SHAH ANEU, MDW, CBC #### [place] [id number] [place], [place] [address] Sodium [Moles/Vol] 141 mmol/L Normal 136-145 [facility] Comment on above: Performed By: #### C MP, GFR, ADIFFPANKAJ ANEU, MDW, CBC #### [place] [address] [place], [place] [address] Total Protein 7.6 G/dL Normal 6.4-8.2 [facility] Comment on above: Performed By: #### C MP, GFR, ADPANKAJ SHAH ANEU, MDW, CBC #### [place] [id number] [place], [place] [address] Urea nitrogen [Mass/Vol] 17 mg/dL Normal 7-18 [facility] Comment on above: Performed By: #### C MP, GFR, ADIFFPANKAJ ANEU, MDW, CBC #### [address] [address] CNOVon 07-11-2024 CNOV Office Visit ([facility] ) RAIN MURPHY ([id number]) 1975 F Date Time Provider Department 07/11/24 11:20 AM EVANS BURDICK [facility] During your visit today, we recorded the following information about you: Temperature Pulse Respiration Blood pressure 98.2 degrees 59/minute 20/minute 121/76 Weight 150.9 kg Evans Burdick MD 07/11/2024 12:29 PM Signed [facility] Gisel Rodrigez Lois Murphy is a 48 year old female. Patient presents with: Abdominal Pain: Left side abdominal pain constant throbbing x 1 week (intermittent) Emesis and Diarrhea x 3 days (intermittently) Nausea x 3 days Left-sided abdominal cramping began about 1 week ago and then improved. Symptoms worsened again 2 days ago. Pain is crampy primarily in the left flank. She has associated nausea, vomiting, and diarrhea. She has had blood in her stool which she attributes to hemorrhoids. She has chills but no fever. She suspects this is diverticulitis which she has had in the past. She denies any recent travel or sick contacts. No recent antibiotic use. She denies chest pain, cough, or feeling lightheaded. Denies urinary frequency, urgency, or hematuria. 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 Prior colon evaluations have shown diverticulitis, diverticulosis, a touch of colitis, and colon polyp. Review of Systems Objective BP 121/76 Pulse (!) 59 Temp 36.8 ?C (98.2 ?F) (Temporal) Resp 20 Wt (!) 150.9 kg (332 lb 9.6 oz) LMP (Approximate) SpO2 91% Physical Exam Constitutional: General: She is not in acute distress. Appearance: She is obese. She is not diaphoretic. HENT: Mouth/Throat: Mouth: Mucous membranes are moist. Pharynx: No oropharyngeal exudate or posterior oropharyngeal erythema. Eyes: Extraocular Movements: Extraocular movements intact. Conjunctiva/sclera: Conjunctivae normal. Pupils: Pupils are equal, round, and reactive to light. Cardiovascular: Rate and Rhythm: Regular rhythm. Bradycardia present. Heart sounds: No murmur heard. Pulmonary: Effort: No respiratory distress. Breath sounds: Rhonchi present. No wheezing. Abdominal: Palpations: Abdomen is soft. There is no mass. Tenderness: There is no abdominal tenderness. There is no right CVA tenderness or left CVA tenderness. Comments: Limited by body habitus Musculoskeletal: Cervical back: Neck supple. No tenderness. {ASSESSMENT/PLAN: 1. Abdominal pain, left lower quadrant - ICD9: 789.04, ICD10: R10.32 (primary diagnosis) 2. History of diverticulosis - ICD9: V12.79, ICD10: Z87.19 Differential includes diverticulitis, infectious gastroenteritis, colitis. Further evaluation with imaging recommended to confirm diagnosis and guide treatment. She generally has her care at [facility] and will go to the ER therefore further evaluation. 3. MUNOZ (dyspnea on exertion) - ICD9: 786.09, ICD10: R06.09 4. Hypoxia - ICD9: 799.02, ICD10: R09.02 Pulse ox confirmed ranging between 91-93 at rest. She denies any past history of hypoxia or asthma. Low suspicion for pneumonia without cough or cold symptoms. Further evaluation for CHF at the ER. Evans Burdick MD History and Record Review Systemic symptoms present included: Chills Differential Diagnoses - Diverticulitis - Infectious gastroenteritis - Hypoxia and abnormal breath sounds; rule out CHF Disposition The patient was other (comment) (Referred to [facility] ER). Procedures Allergies As of Date: 07/11/2024 Noted Allergy Reaction PROPOFOL ANALOGUES 07/11/2024 5 - Intolerance 14 - Other: See Comments Comments: extreme restlessness SULFA (SULFONAMIDE ANTIBIOTICS) 05/29/2022 2 - Rash 16 - Unknown Comments: blood blisters SULFAMETHOXAZOLE-TRIMETHOPRIM 07/11/2024 14 - Other: See Comments Date Reviewed: 07/11/2024 Reviewed by: Mia Smith - Fully Assessed Reason for Visit: Abdominal Pain [1] Cmt: Left side abdominal pain constant throbbing x 1 week (intermittent) Emesis and Diarrhea x 3 days (intermittently) Nausea x 3 days Primary Visit Diagnosis:Abdominal pain, left lower quadrant [R10.32] Other Visit Diagnoses:History of diverticulosis [Z87.19] MUNOZ (dyspnea on exertion) [R06.09] Hypoxia [R09.02] Prescriptions as of 07/11/2024 - pantoprazole DR (PROTONIX) 40 mg tablet Take 40 mg by mouth two times a day. - vitamin D3-vitamin K2 1,250-200 mcg cap Take by mouth once daily. - albuterol (PROVENTIL) 2.5 mg /3 mL (0.083 %) nebulizer solution 2.5 mg as needed. - escitalopram oxalate (LEXAPRO) 20 mg tablet Take 20 mg by mouth once daily. - hydrOXYchloroQUINE (PLAQUENIL) 200 mg tablet 1 tab(s) orally twice a day for 90 days - clonazePAM (KLONOPIN) 1 mg tablet Take 1 mg by mouth three times daily as needed. - dicyclomine (BENTYL) 20 mg tablet - hydrocortisone (HEM (more content not included)... Normal [facility] CT ABD/PELVIS W/ IV CONTRAST ONLYon 07-11-2024 CT ABD/PELVIS W/ IV CONTRAST ONLY ORIGINAL EXAMINATION: CT OF THE ABDOMEN AND PELVIS WITH CONTRAST 07/11/2024 1:28 pm TECHNIQUE: CT of the abdomen and pelvis was performed with the administration of intravenous contrast. Multiplanar reformatted images are provided for review. Automated exposure control, iterative reconstruction, and/or weight based adjustment of the mA/kV was utilized to reduce the radiation dose to as low as reasonably achievable. COMPARISON: June 29, 2022 HISTORY: ORDERING SYSTEM PROVIDED HISTORY: Reason for Exam: pain FINDINGS: Minor degenerative changes are noted in the spine. No acute osseous abnormality is identified. The lung bases are unremarkable. Very small sliding hiatal hernia noted. Cholecystectomy clips are present. No focal liver lesions seen. The spleen, adrenal glands and pancreas are unremarkable. No kidney abnormality seen. No adenopathy, free air or free fluid is visible. The solid pelvic organs and urinary bladder are grossly normal. Mild diverticulosis is present at the sigmoid and left colon with scattered diverticula elsewhere as well. No evidence for diverticulitis. No other GI tract abnormality seen. No additional contributory abnormality seen. IMPRESSION: No acute finding. Diverticulosis without diverticulitis. Interpreted by: Grace Rivero MD Preliminary Report By: Grace Rivero MD Electronically signed By Grace Rivero MD Dictated Date: 07/11/2024 1:33:03 PM Prelim Date: 07/11/2024 1:34:56 PM Sign Date: 07/11/2024 1:34:56 PM Ordering Provider: SUZETTE PEREZ Normal [facility] LIPon 07-11-2024 Lipase Level 24 U/L Normal 16-77 [facility] Comment on above: Performed By: #### C ANTWAN, GFRSOFIA LIP, ANEU, MDW, CBC #### [place] [id number] [place], [place] [address] UAon 07-11-2024 Color (U) Yellow Normal [facility] Comment on above: Performed By: #### C MP, GFR, ADPANKAJ SHAH ANEU, MDW, CBC #### [address] [address] Glucose (U) [Mass/Vol] Negative Normal Negative [facility] Comment on above: Performed By: #### C MP, GFR, ADIFF, BEENA LIRA MDW, CBC #### [address] [address] Ketones Ql (U) Negative Normal Negative [facility] Comment on above: Performed By: #### C MP, GFR, ADIFF, LIPBEENA MDW, CBC #### [address] [address] UA Appear Clear Normal Clear [facility] Comment on above: Performed By: #### C MP, GFR, ADIFFPANKAJ ANEU, MDW, CBC #### [address] [address] UA Blood Negative Normal Negative [facility] Comment on above: Performed By: #### C MP, GFR, ADIFF, BEENA LIRA MDW, CBC #### [address] [address] UA Leuk Est Trace Abnormal Negative [facility] Comment on above: Performed By: #### C MP, GFR, ADIFF, BEENA LIRA MDW, CBC #### [address] [address] UA Nitrite Negative Normal Negative [facility] Comment on above: Performed By: #### C MP, GFR, ADIFF, BEENA LIRA MDW, CBC #### [address] [address] UA pH 7.0 Normal 5.0 - 8.0 [facility] Comment on above: Performed By: #### C MP, GFR, ADIFF, LIPBEENA MDW, CBC #### [address] [address] UA Protein Negative Normal Negative [facility] Comment on above: Performed By: #### C MP, GFR, ADIFF, LIPBEENA MDW, CBC #### [address] [address] UA Spec Grav 1.025 Normal 1.015-1.02 5 [facility] Comment on above: Performed By: #### C MP, GFR, ADIFF, LIP, ANEU, W, CBC #### [address] [address] UA Specimen Type Clean Catch Normal [facility] Comment on above: Performed By: #### C MP, GFR, ADIFF, LIP, ANEU, MDW, CBC #### [place] [address] UA Urobilinogen 0.2 E.U./dL Normal 0.2-1.0 [facility] Comment on above: Performed By: #### C MP, GFR, ADIFF, LIP, ANEU, MDW, CBC #### [place] [address] Urobilinogen (U) [Mass/Vol] Negative Normal Negative [facility] Comment on above: Performed By: #### C MP, GFR, ADIFF, LIP, ANEU, MDW, CBC #### [place] [address] .Auto Diffon 02-17-2024 Basophil, Absolute 0.1 10 3/mcL Normal 0.0-0.2 [facility] Comment on above: Performed By: #### C MP, GFR, ADIFF, LIP, ANEU, MDW, CBC #### [place] [id number] Basophils/100 WBC (Bld) 0.8 % Normal 0.0-2.5 [facility] Comment on above: Performed By: #### C MP, GFR, ADIFF, LIP, ANEU, W, CBC #### [place] [address] Eosinophil, Absolute 0.4 10 3/mcL Normal 0.0-0.7 [facility] Comment on above: Performed By: #### C MP, GFR, ADIFF, LIP, ANEU, MDW, CBC #### [address] [address] Eosinophils/100 WBC (Bld) 5.4 % Normal 0.0-7.0 [facility] Comment on above: Performed By: #### C MP, GFR, ADIFF, LIP, ANEU, MDW, CBC #### [address] [address] Lymphocyte, Absolute 1.5 10 3/mcL Normal 0.9-4.3 [facility] Comment on above: Performed By: #### C MP, GFR, ADIFF, LIP, ANEU, MDW, CBC #### [address] [address] Lymphocytes/100 WBC (Bld) 21.8 % Normal 20.0-40.0 [facility] Comment on above: Performed By: #### C MP, GFR, ADIFF, LIP, ANEU, MDW, CBC #### [address] [address] Monocyte, Absolute 0.3 10 3/mcL Normal 0.1-1.4 [facility] Comment on above: Performed By: #### C MP, GFR, ADIFF, LIP, ANEU, MDW, CBC #### [address] [address] Monocytes/100 WBC (Bld) 3.9 % Normal 2.0-13.0 [facility] Comment on above: Performed By: #### C MP, GFR, ADIFF, LIP, ANEU, MDW, CBC #### [address] [address] Neutrophils/100 WBC (Bld) 68.1 % Normal 50.0-75.0 [facility] Comment on above: Performed By: #### C MP, GFR, ADIFF, LIP, ANEU, MDW, CBC #### [address] [address] .GFRon 02-17-2024 GFR 75 ml/min/1.73sqm Normal [facility] Comment on above: Result Comment: GFR Population mean for , Non- Americans Ages 20-29 = 116 mL/min/1.73 sq.m. Ages 30-39 = 107 mL/min/1.73 sq.m. Ages 40-49 = 99 mL/min/1.73 sq.m. Ages 50-59 = 93 mL/min/1.73 sq.m. Ages 60-69 = 85 mL/min/1.73 sq.m. Ages 70+ = 75 mL/min/1.73 sq.m. Chronic Kidney Disease: Less than 60 mL/min/1.73 square meters End Stage Renal Disease: Less than 15 mL/min/1.73 square meters Performed By: #### C MP, GFR, ADIFF, BEENA LIRA MDW, CBC #### [address] [address] GFR Non- 62 ml/min/1.73sqm Normal [facility] Comment on above: Result Comment: GFR Population mean for , Non- Americans Ages 20-29 = 116 mL/min/1.73 sq.m. Ages 30-39 = 107 mL/min/1.73 sq.m. Ages 40-49 = 99 mL/min/1.73 sq.m. Ages 50-59 = 93 mL/min/1.73 sq.m. Ages 60-69 = 85 mL/min/1.73 sq.m. Ages 70+ = 75 mL/min/1.73 sq.m. Chronic Kidney Disease: Less than 60 mL/min/1.73 square meters End Stage Renal Disease: Less than 15 mL/min/1.73 square meters Performed By: #### C MP, GFR, ADIFF, BEENA LIRA MDW, CBC #### [address] [address] .NEUABSon 02-17-2024 Neutrophil, Absolute 4.6 10 3/mcL Normal 2.3-8.1 [facility] Comment on above: Performed By: #### C MP, GFR, ADIFF, BEENA LIRA MDW, CBC #### [address] [address] CBCon 02-17-2024 Erythrocyte distribution width (RBC) [Ratio] 17.1 % High 11.5-15.5 [facility] Comment on above: Performed By: #### C MP, GFR, ADIFF, LIP, ANEU, MDW, CBC #### [address] [address] Hematocrit (Bld) [Volume fraction] 37.1 % Normal 34.0-46.0 [facility] Comment on above: Performed By: #### C MP, GFR, ADIFF, LIP, ANEU, MDW, CBC #### [address] [address] Hgb 12.3 G/dL Normal 12.0-16.0 [facility] Comment on above: Performed By: #### C MP, GFR, ADIFF, LIP, ANEU, MDW, CBC #### [address] [address] MCH (RBC) [Entitic mass] 28.3 pg Normal 27.0-33.0 [facility] Comment on above: Performed By: #### C MP, GFR, ADIFF, LIP, ANEU, MDW, CBC #### [address] [address] MCHC 33.1 G/dL Normal 32.0-36.0 [facility] Comment on above: Performed By: #### C MP, GFR, ADIFF, LIP, ANEU, MDW, CBC #### [address] [address] MCV (RBC) [Entitic vol] 85.6 fL Normal 80.0-99.0 [facility] Comment on above: Performed By: #### C MP, GFR, ADIFF, LIP, ANEU, MDW, CBC #### [address] [address] Platelet 230 10 3/mcL Normal 150-450 [facility] Comment on above: Performed By: #### C MP, GFR, ADIFF, LIP, ANEU, MDW, CBC #### [address] [address] Platelet mean volume (Bld) [Entitic vol] 7.8 fL Normal 6.6-10.5 [facility] Comment on above: Performed By: #### C MP, GFR, ADIFF, LIP, ANEU, MDW, CBC #### [address] [address] RBC 4.34 10 6/mcL Normal 4.10-5.30 [facility] Comment on above: Performed By: #### C MP, GFR, ADIFF, LIP, ANEU, MDW, CBC #### [address] [address] WBC 6.7 10 3/mcL Normal 4.5-10.8 [facility] Comment on above: Performed By: #### C MP, GFR, ADIFF, LIP, ANEU, MDW, CBC #### [address] [address] CMPon 02-17-2024 Albumin Level 3.5 G/dL Normal 3.5-5.0 [facility] Comment on above: Performed By: #### C MP, GFR, ADIFF, LIP, ANEU, MDW, CBC #### [address] [address] Albumin/Globulin [Mass ratio] 1.1 {ratio} Normal 1.1-2.5 [facility] Comment on above: Performed By: #### C MP, GFR, ADIFF, LIP, ANEU, MDW, CBC #### [address] [address] ALP [Catalytic activity/Vol] 122 U/L Normal 40-135 [facility] Comment on above: Performed By: #### C MP, GFR, ADIFF, LIP, ANEU, MDW, CBC #### [address] [address] ALT [Catalytic activity/Vol] 35 U/L Normal 14-59 [facility] Comment on above: Performed By: #### C MP, GFR, ADIFF, LIP, ANEU, MDW, CBC #### [address] [address] AST [Catalytic activity/Vol] 27 U/L Normal 10-40 [facility] Comment on above: Performed By: #### C MP, GFR, ADIFF, LIP, ANEU, W, CBC #### [address] [address] Bili Total 0.4 mg/dL Normal 0.2-1.0 [facility] Comment on above: Result Comment: Use of this assay is not recommended for patients undergoing treatment with eltrombopag due to the potential for falsely elevated results. Performed By: #### C MP, GFR, ADIFF, LIP, ANEU, MDW, CBC #### [place] [address] BUN/Creatinine Ratio 12 ratio Normal 7-27 [facility] Comment on above: Performed By: #### C MP, GFR, ADIFF, LIP, ANEU, MDW, CBC #### [address] [address] Calcium [Mass/Vol] 8.8 mg/dL Normal 8.4-10.2 [facility] Comment on above: Performed By: #### C MP, GFR, ADIFF, LIP, ANEU, MDW, CBC #### [address] [address] Chloride [Moles/Vol] 105 mmol/L Normal 98-107 [facility] Comment on above: Performed By: #### C MP, GFR, ADIFF, LIP, ANEU, MDW, CBC #### [address] [address] CO2 [Moles/Vol] 33 mmol/L High 22-29 [facility] Comment on above: Performed By: #### C MP, GFR, ADIFF, LIP, ANEU, MDW, CBC #### [address] [address] Creatinine [Mass/Vol] 0.96 mg/dL Normal 0.55-1.02 [facility] Comment on above: Result Comment: Test ing performed on Siemens Dimension EXL analyzer using a modified kinetic Oralia technique. Performed By: #### C MP, GFR, ADIFF, LIP, ANEU, MDW, CBC #### [address] [address] Electrolyte Balance 4.0 mEq/L Normal 4.0-15.0 [facility] Comment on above: Performed By: #### C MP, GFR, ADIFF, LIP, ANEU, MDW, CBC #### [address] [address] Globulin 3.3 G/dL Normal [facility] Comment on above: Performed By: #### C MP, GFR, ADIFF, LIP, ANEU, MDW, CBC #### [address] [address] Glucose [Mass/Vol] 103 mg/dL Normal 70-105 [facility] Comment on above: Performed By: #### C MP, GFR, ADIFF, LIP, ANEU, MDW, CBC #### [address] [address] Potassium [Moles/Vol] 4.3 mmol/L Normal 3.5-5.1 [facility] Comment on above: Performed By: #### C MP, GFR, ADIFF, LIP, ANEU, MDW, CBC #### [address] [address] Sodium [Moles/Vol] 142 mmol/L Normal 136-145 [facility] Comment on above: Performed By: #### C MP, GFR, ADIFF, LIP, ANEU, MDW, CBC #### [address] [address] Total Protein 6.8 G/dL Normal 6.4-8.2 [facility] Comment on above: Performed By: #### C MP, GFR, ADIFF, LIP, ANEU, MDW, CBC #### [address] [address] Urea nitrogen [Mass/Vol] 12 mg/dL Normal 7-18 [facility] Comment on above: Performed By: #### C MP, GFR, ADIFF, LIP, ANEU, MDW, CBC #### [address] [address] DIMERon 02-17-2024 D-Dimer 3269 ng/mL D-DU High 0-230 [facility] Comment on above: Result Comment: Resu lts reported in D-DU ng/mL. Positive for D-dimer. A positive D-Dimer may occur in the following: DVT, PE, DIC, Trauma, Cancer, Sepsis, , Rheumatoid arthritis, Myocardial infarction and Cirrhosis. The presence of Rheumatoid Factor and HAMA (human mouse antibody) produces an overestimation of test results. The result of the D-Dimer test should be evaluated in the context of all the clinical and laboratory data available. In those instances where the laboratory result does not agree with the clinical evaluation, additional tests should be performed accordingly. If the D-Dimer result is used to exclude DVT or PE, the recommended cutoff value is less than 230 ng/mL. The D-Dimer result should not be used alone to rule in DVT/PE, but should be used in conjunction with a clinical pretest probability (PTP)assessment model to exclude venous thromboembolism (VTE) in outpatients suspected of deep venous thrombosis (DVT) and pulmonary embolism (PE). Performed By: #### C MP, GFR, ADIFFPANKAJ ANEU, MDW, CBC #### [address] [address] FEon 02-17-2024 Iron [Mass/Vol] 93 ug/dL Normal 50-170 [facility] Comment on above: Performed By: #### C MP, GFR, ADIFFPANKAJ ANEU, MDW, CBC #### [address] [address] Sal 02-17-2024 Ferritin [Mass/Vol] 43.0 ng/mL Normal 8.0-252.0 [facility] Comment on above: Performed By: #### C MP, GFR, ADIFFPANKAJ ANEU, MDW, CBC #### [address] [address] LABORATORYOrdered By: SYSTEM SYSTEM on 02-17-2024 Albumin BCP dye [Mass/Vol] 3.5 G/dL Normal 3.5 - 5.0 G/dL AO ADM SS Albumin/Globulin [Mass ratio] 1.1 {ratio} Normal 1.1 - 2.5 ratio AO ADM SS ALP [Catalytic activity/Vol] 122 U/L Normal 40 - 135 U/L AO ADM SS ALT With P-5'-P [Catalytic activity/Vol] 35 U/L Normal 14 - 59 U/L AO ADM SS AST With P-5'-P [Catalytic activity/Vol] 27 U/L Normal 10 - 40 U/L AO ADM SS Basophils (Bld) [#/Vol] 0.1 103/mcL Normal 0.0 - 0.2 10^3/mcL AO Workflow SS Basophils/100 WBC (Bld) 0.8 % Normal 0.0 - 2.5 % AO Workflow SS Bilirubin [Mass/Vol] 0.4 mg/dL Normal 0.2 - 1.0 mg/dL AO ADM SS Comment on above: Interpretive Data: U se of this assay is not recommended for patients undergoing treatment with eltrombopag due to the potential for falsely elevated results. Calcium [Mass/Vol] 8.8 mg/dL Normal 8.4 - 10. 2 mg/dL AO ADM SS Chloride [Moles/Vol] 105 mmol/L Normal 98 - 107 mmol/L AO ADM SS CO2 [Moles/Vol] 33 mmol/L High 22 - 29 mmol/L AO ADM SS Creatinine [Mass/Vol] 0.96 mg/dL Normal 0.55 - 1.02 mg/dL AO ADM SS Comment on above: Interpretive Data: T esting performed on Siemens Dimension EXL analyzer using a modified kinetic Oralia technique. Electrolyte Balance 4.0 mEq/L Normal 4.0 - 15.0 mEq/L AO ADM SS Eosinophil, Absolute 0.4 103/mcL Normal 0.0 - 0.7 10^3/mcL AO Workflow SS Eosinophils/100 WBC (Bld) 5.4 % Normal 0.0 - 7.0 % AO Workflow SS Erythrocyte distribution width (RBC) [Ratio] 17.1 % High 11.5 - 15.5 % AO Workflow SS Ferritin [Mass/Vol] 43.0 ng/mL Normal 8.0 - 252.0 ng/mL AO ADM SS Fibrin D-dimer DDU (PPP) [Mass/Vol] 3269 ng/mL D-DU High 0 - 230 ng/mL D-DU AO [facility] SS Comment on above: Result Comment: Resu lts reported in D-DU ng/mL. Positive for D-dimer. A positive D-Dimer may occur in the following: DVT, PE, DIC, Trauma, Cancer, Sepsis, , Rheumatoid arthritis, Myocardial infarction and Cirrhosis. The presence of Rheumatoid Factor and HAMA (human mouse antibody) produces an overestimation of test results. Interpretive Data: T he result of the D-Dimer test should be evaluated in the context of all the clinical and laboratory data available. In those instances where the laboratory result does not agree with the clinical evaluation, additional tests should be performed accordingly. If the D-Dimer result is used to exclude DVT or PE, the recommended cutoff value is less than 230 ng/mL. The D-Dimer result should not be used alone to rule in DVT/PE, but should be used in conjunction with a clinical pretest probability (PTP)assessment model to exclude venous thromboembolism (VTE) in outpatients suspected of deep venous thrombosis (DVT) and pulmonary embolism (PE). GFR/1.73 sq M.predicted among blacks MDRD (S/P/Bld) [Vol rate/Area] 75 ml/min/1.73sqm Invalid Interpretation Code AO Chemistry S Comment on above: Interpretive Data: GFR Population mean for , Non- Americans Ages 20-29 = 116 mL/min/1.73 sq.m. Ages 30-39 = 107 mL/min/1.73 sq.m. Ages 40-49 = 99 mL/min/1.73 sq.m. Ages 50-59 = 93 mL/min/1.73 sq.m. Ages 60-69 = 85 mL/min/1.73 sq.m. Ages 70+ = 75 mL/min/1.73 sq.m. Chronic Kidney Disease: Less than 60 mL/min/1.73 square meters End Stage Renal Disease: Less than 15 mL/min/1.73 square meters GFR/1.73 sq M.predicted among non-blacks MDRD (S/P/Bld) [Vol rate/Area] 62 ml/min/1.73sqm Invalid Interpretation Code AO Chemistry S Comment on above: Interpretive Data: GFR Population mean for , Non- Americans Ages 20-29 = 116 mL/min/1.73 sq.m. Ages 30-39 = 107 mL/min/1.73 sq.m. Ages 40-49 = 99 mL/min/1.73 sq.m. Ages 50-59 = 93 mL/min/1.73 sq.m. Ages 60-69 = 85 mL/min/1.73 sq.m. Ages 70+ = 75 mL/min/1.73 sq.m. Chronic Kidney Disease: Less than 60 mL/min/1.73 square meters End Stage Renal Disease: Less than 15 mL/min/1.73 square meters Globulin 3.3 G/dL Invalid Interpretation Code AO ADM SS Glucose [Mass/Vol] 103 mg/dL Normal 70 - 105 mg/dL AO ADM SS Hematocrit (Bld) [Volume fraction] 37.1 % Normal 34.0 - 46.0 % AO Workflow SS Hemoglobin (Bld) [Mass/Vol] 12.3 G/dL Normal 12.0 - 16.0 G/dL AO Workflow SS Iron [Mass/Vol] 93 ug/dL Normal 50 - 170 mcg/dL AO ADM SS Lymphocytes (Bld) [#/Vol] 1.5 103/mcL Normal 0.9 - 4.3 10^3/mcL AO Workflow SS Lymphocytes/100 WBC (Bld) 21.8 % Normal 20.0 - 40.0 % AO Workflow SS MCH (RBC) [Entitic mass] 28.3 pg Normal 27.0 - 33.0 pg AO Workflow SS MCHC 33.1 G/dL Normal 32.0 - 36.0 G/dL AO Workflow SS MCV (RBC) [Entitic vol] 85.6 fL Normal 80.0 - 99.0 fL AO Workflow SS Monocytes (Bld) [#/Vol] 0.3 103/mcL Normal 0.1 - 1.4 10^3/mcL AO Workflow SS Monocytes/100 WBC (Bld) 3.9 % Normal 2.0 - 13.0 % AO Workflow SS Neutrophils (Bld) [#/Vol] 4.6 103/mcL Normal 2.3 - 8.1 10^3/mcL AO Workflow SS Neutrophils/100 WBC (Bld) 68.1 % Normal 50.0 - 75.0 % AO Workflow SS Platelet mean volume (Bld) [Entitic vol] 7.8 fL Normal 6.6 - 10.5 fL AO Workflow SS Platelets (Bld) [#/Vol] 230 103/mcL Normal 150 - 450 10^3/mcL AO Workflow SS Potassium [Moles/Vol] 4.3 mmol/L Normal 3.5 - 5.1 mmol/L AO ADM SS Protein [Mass/Vol] 6.8 G/dL Normal 6.4 - 8.2 G/dL AO ADM SS RBC (Bld) [#/Vol] 4.34 106/mcL Normal 4.10 - 5.30 10^6/mcL AO Workflow SS Sodium [Moles/Vol] 142 mmol/L Normal 136 - 145 mmol/L AO ADM SS Urea nitrogen [Mass/Vol] 12 mg/dL Normal 7 - 18 mg/dL AO ADM SS Urea nitrogen/Creatinin e [Mass ratio] 12 ratio Normal 7 - 27 ratio AO ADM SS WBC (Bld) [#/Vol] 6.7 103/mcL Normal 4.5 - 10.8 10^3/mcL AO Workflow SS LABORATORYOrdered By: Abiola Carlin on 02-17-2024 Cholesterol [Mass/Vol] 224 mg/dL High 0 - 200 mg/dL AO ADM SS Comment on above: Interpretive Data: C holesterol Reference Interval: Less than 200 Desirable 200-239 Borderline high risk 240 and above High risk Cholesterol in HDL [Mass/Vol] 46 mg/dL Normal 40 - 60 mg/dL AO ADM SS Cholesterol in LDL [Mass/Vol] 145 mg/dL High 0 - 130 mg/dL AO ADM SS Triglyceride [Mass/Vol] 165 mg/dL High 0 - 150 mg/dL AO ADM SS Comment on above: Interpretive Data: T riglyceride Reference Interval: Less than 150 Normal 150-199 Borderline high risk 200-499 High risk 500 or higher Very high risk LIPIDon 02-17-2024 Cholesterol [Mass/Vol] 224 mg/dL High 0-200 [facility] Comment on above: Result Comment: Chol esterol Reference Interval: Less than 200 Desirable 200-239 Borderline high risk 240 and above High risk Performed By: #### C ANTWAN, GFRSOFIA LIP, ANEU, MDW, CBC #### [facility] [address] [place], [place] [address] Cholesterol in HDL [Mass/Vol] 46 mg/dL Normal 40-60 [facility] Comment on above: Performed By: #### C ANTWAN, GFRSOFIA LIP, ANEU, MDW, CBC #### [address] [address] Cholesterol in LDL [Mass/Vol] 145 mg/dL High 0-130 [facility] Comment on above: Performed By: #### C MP, GFR, ADIFF, LIP, HEATHER HARGROVE, CBC #### [address] [address] Triglyceride [Mass/Vol] 165 mg/dL High 0-150 [facility] Comment on above: Result Comment: Trig lyceride Reference Interval: Less than 150 Normal 150-199 Borderline high risk 200-499 High risk 500 or higher Very high risk Performed By: #### C MP, GFR, ADIFF, LIP, HEATHER HARGROVE, CBC #### [address] [address] .Auto Diffon 11-10-2023 Basophil, Absolute 0.0 10 3/mcL Normal 0.0-0.2 [facility] ([place] Comment on above: Performed By: #### A DIFF, FE, DIMER, FERR, ANEU, CBC #### [address] [address] Basophils/100 WBC (Bld) 0.6 % Normal 0.0-2.5 [facility] ([place] Comment on above: Performed By: #### A DIFF, FE, DIMER, FERR, ANEU, CBC #### [address] [address] Eosinophil, Absolute 0.3 10 3/mcL Normal 0.0-0.4 [facility] ([place] Comment on above: Performed By: #### A DIFF, FE, DIMER, FERR, ANEU, CBC #### [address] [address] Eosinophils/100 WBC (Bld) 3.7 % Normal 0.0-7.0 [facility] ([place] Comment on above: Performed By: #### A DIFF, FE, DIMER, FERR, ANEU, CBC #### [address] [address] Lymphocyte, Absolute 1.5 10 3/mcL Normal 0.8-3.9 [facility] ([place] Comment on above: Performed By: #### A DIFF, FE, DIMER, FERR, ANEU, CBC #### [address] [address] Lymphocytes/100 WBC (Bld) 18.8 % Normal 10.0-50.0 [facility] ([place] Comment on above: Performed By: #### A DIFF, FE, DIMER, FERR, ANEU, CBC #### [address] [address] Monocyte, Absolute 0.4 10 3/mcL Normal 0.2-1.0 [facility] ([place] Comment on above: Performed By: #### A DIFF, FE, DIMER, FERR, ANEU, CBC #### [address] [address] Monocytes/100 WBC (Bld) 5.2 % Normal 1.7-13.0 [facility] ([place] Comment on above: Performed By: #### A DIFF, FE, DIMER, FERR, ANEU, CBC #### [address] [address] Neutrophils/100 WBC (Bld) 71.7 % Normal 37.0-80.0 [facility] ([place] Comment on above: Performed By: #### A DIFF, FE, DIMER, FERR, ANEU, CBC #### [address] [address] .NEUABSon 11-10-2023 Neutrophil, Absolute 5.7 10 3/mcL Normal 2.9-6.2 [facility] ([place] Comment on above: Performed By: #### A DIFF, FE, DIMER, FERR, ANEU, CBC #### [address] [address] CBCon 11-10-2023 Erythrocyte distribution width (RBC) [Ratio] 21.2 % High 11.5-14.5 [facility] ([place] Comment on above: Performed By: #### A DIFF, FE, DIMER, FERR, ANEU, CBC #### [address] [address] Hematocrit (Bld) [Volume fraction] 34.1 % Low 37.0-47.0 [facility] ([place] Comment on above: Performed By: #### A DIFF, FE, DIMER, FERR, ANEU, CBC #### [place] [id number] Hgb 10.9 G/dL Low 12.0-16.0 [facility] ([place] Comment on above: Performed By: #### A DIFF, FE, DIMER, FERR, ANEU, CBC #### [place] [address] MCH (RBC) [Entitic mass] 22.7 pg Low 27.0-31.2 [facility] ([place] Comment on above: Performed By: #### A DIFF, FE, DIMER, FERR, ANEU, CBC #### [place] [address] MCHC 32.0 G/dL Low 33.0-37.0 [facility] ([place] Comment on above: Performed By: #### A DIFF, FE, DIMER, FERR, ANEU, CBC #### [place] [address] MCV (RBC) [Entitic vol] 70.9 fL Low 80.0-94.0 [facility] ([place] Comment on above: Performed By: #### A DIFF, FE, DIMER, FERR, ANEU, CBC #### [place] [address] Platelet 323 10 3/mcL Normal 130-400 [facility] ([place] Comment on above: Performed By: #### A DIFF, FE, DIMER, FERR, ANEU, CBC #### [place] [address] Platelet mean volume (Bld) [Entitic vol] 7.1 fL Low 7.4-10.4 [facility] ([place] Comment on above: Performed By: #### A DIFF, FE, DIMER, FERR, ANEU, CBC #### [place] [address] RBC 4.81 10 6/mcL Normal 4.20-5.40 [facility] ([place] Comment on above: Performed By: #### A DIFF, FE, DIMER, FERR, ANEU, CBC #### [address] [address] WBC 7.9 10 3/mcL Normal 4.6-10.8 [facility] ([place] Comment on above: Performed By: #### A DIFF, FE, DIMER, FERR, ANEU, CBC #### [address] [address] DIMERon 11-10-2023 D-Dimer 4160 ng/mL D-DU High 0-230 [facility] ([place] Comment on above: Result Comment: Resu lts reported in D-DU ng/mL. Positive for D-dimer. A positive D-Dimer may occur in the following: DVT, PE, DIC, Trauma, Cancer, Sepsis, , Rheumatoid arthritis, Myocardial infarction and Cirrhosis. The presence of Rheumatoid Factor and HAMA (human mouse antibody) produces an overestimation of test results. The result of the D-Dimer test should be evaluated in the context of all the clinical and laboratory data available. In those instances where the laboratory result does not agree with the clinical evaluation, additional tests should be performed accordingly. If the D-Dimer result is used to exclude DVT or PE, the recommended cutoff value is less than 230 ng/mL. The D-Dimer result should not be used alone to rule in DVT/PE, but should be used in conjunction with a clinical pretest probability (PTP)assessment model to exclude venous thromboembolism (VTE) in outpatients suspected of deep venous thrombosis (DVT) and pulmonary embolism (PE). Performed By: #### A DIFF, FE, DIMER, FERR, ANEU, CBC #### [address] [address] FEon 11-10-2023 Iron [Mass/Vol] 35 ug/dL Low 50-170 [facility] ([place] Comment on above: Performed By: #### A DIFF, FE, DIMER, FERR, ANEU, CBC #### [address] [address] Sal 11-10-2023 Ferritin [Mass/Vol] 253.0 ng/mL High 8.0-252.0 [facility] ([place] Comment on above: Performed By: #### A DIFF, FE, DIMER, FERR, ANEU, CBC #### [address] [address] RETO (AO)on 11-10-2023 Immature Retic Fraction 0.51 IRF High 0.20-0.46 [facility] ([place] Comment on above: Performed By: #### A DIFF, FE, DIMER, FERR, ANEU, CBC #### [address] [address] Reticulocytes, Auto 2.2 % Normal 0.2-2.3 [facility] ([place] Comment on above: Performed By: #### A DIFF, FE, DIMER, FERR, ANEU, CBC #### [address] [address] .Auto Diffon 10-28-2023 Basophil, Absolute 0.0 10 3/mcL Normal 0.0-0.2 [facility] ([place] Comment on above: Performed By: #### A DIFF, FE, DIMER, FERR, ANEU, CBC #### [address] [address] Basophils/100 WBC (Bld) 0.5 % Normal 0.0-2.5 [facility] ([place] Comment on above: Performed By: #### A DIFF, FE, DIMER, FERR, ANEU, CBC #### [address] [address] Eosinophil, Absolute 0.3 10 3/mcL Normal 0.0-0.4 [facility] ([place] Comment on above: Performed By: #### A DIFF, FE, DIMER, FERR, ANEU, CBC #### [address] [address] Eosinophils/100 WBC (Bld) 3.5 % Normal 0.0-7.0 [facility] ([place] Comment on above: Performed By: #### A DIFF, FE, DIMER, FERR, ANEU, CBC #### [address] [address] Lymphocyte, Absolute 1.7 10 3/mcL Normal 0.8-3.9 [facility] ([place] Comment on above: Performed By: #### A DIFF, FE, DIMER, FERR, ANEU, CBC #### [address] [address] Lymphocytes/100 WBC (Bld) 20.2 % Normal 10.0-50.0 [facility] ([place] Comment on above: Performed By: #### A DIFF, FE, DIMER, FERR, ANEU, CBC #### [address] [address] Monocyte, Absolute 0.6 10 3/mcL Normal 0.2-1.0 [facility] ([place] Comment on above: Performed By: #### A DIFF, FE, DIMER, FERR, ANEU, CBC #### [address] [address] Monocytes/100 WBC (Bld) 6.9 % Normal 1.7-13.0 [facility] ([place] Comment on above: Performed By: #### A DIFF, FE, DIMER, FERR, ANEU, CBC #### [address] [address] Neutrophils/100 WBC (Bld) 68.9 % Normal 37.0-80.0 [facility] ([place] Comment on above: Performed By: #### A DIFF, FE, DIMER, FERR, ANEU, CBC #### [address] [address] .GFRon 10-28-2023 GFR Non- 64 ml/min/1.73sqm Normal [facility] ([place] Comment on above: Result Comment: GFR Population mean for , Non- Americans Ages 20-29 = 116 mL/min/1.73 sq.m. Ages 30-39 = 107 mL/min/1.73 sq.m. Ages 40-49 = 99 mL/min/1.73 sq.m. Ages 50-59 = 93 mL/min/1.73 sq.m. Ages 60-69 = 85 mL/min/1.73 sq.m. Ages 70+ = 75 mL/min/1.73 sq.m. Chronic Kidney Disease: Less than 60 mL/min/1.73 square meters End Stage Renal Disease: Less than 15 mL/min/1.73 square meters Performed By: #### A DIFF, FE, DIMER, FERR, ANEU, CBC #### [address] [address] GFR 78 ml/min/1.73sqm Normal [facility] ([place] Comment on above: Result Comment: GFR Population mean for , Non- Americans Ages 20-29 = 116 mL/min/1.73 sq.m. Ages 30-39 = 107 mL/min/1.73 sq.m. Ages 40-49 = 99 mL/min/1.73 sq.m. Ages 50-59 = 93 mL/min/1.73 sq.m. Ages 60-69 = 85 mL/min/1.73 sq.m. Ages 70+ = 75 mL/min/1.73 sq.m. Chronic Kidney Disease: Less than 60 mL/min/1.73 square meters End Stage Renal Disease: Less than 15 mL/min/1.73 square meters Performed By: #### A DIFF, FE, DIMER, FERR, ANEU, CBC #### [address] [address] .MDWon 10-28-2023 Monocyte Distribution Width 20.70 High 0.00-20.00 [facility] ([place] Comment on above: Result Comment: For adults in ED, MDW>20.0 may be associated with a higher risk of sepsis during the first 12hrs of hospital admission Performed By: #### A DIFF, FE, DIMER, FERR, ANEU, CBC #### [address] [address] .NEUABSon 10-28-2023 Neutrophil, Absolute 5.9 10 3/mcL Normal 2.9-6.2 [facility] ([place] Comment on above: Performed By: #### A DIFF, FE, DIMER, FERR, ANEU, CBC #### [address] [address] BMPon 10-28-2023 BUN/Creatinine Ratio 26 ratio Normal 7-27 [facility] ([place] Comment on above: Performed By: #### A DIFF, FE, DIMER, FERR, ANEU, CBC #### [address] [address] Calcium [Mass/Vol] 9.1 mg/dL Normal 8.4-10.2 [facility] ([place]) Comment on above: Performed By: #### A DIFF, FE, DIMER, FERR, ANEU, CBC #### [address] [address] Chloride [Moles/Vol] 100 mmol/L Normal 98-107 [facility] ([place] Comment on above: Performed By: #### A DIFF, FE, DIMER, FERR, ANEU, CBC #### [address] [address] CO2 [Moles/Vol] 27 mmol/L Normal 22-29 [facility] ([place] Comment on above: Performed By: #### A DIFF, FE, DIMER, FERR, ANEU, CBC #### [address] [address] Creatinine [Mass/Vol] 0.93 mg/dL Normal 0.55-1.02 [facility] ([place] Comment on above: Performed By: #### A DIFF, FE, DIMER, FERR, ANEU, CBC #### [address] [address] Electrolyte Balance 10.0 mEq/L Normal 4.0-15.0 [facility] ([place] Comment on above: Performed By: #### A DIFF, FE, DIMER, FERR, ANEU, CBC #### [address] [address] Glucose [Mass/Vol] 111 mg/dL High 70-105 [facility] ([place] Comment on above: Performed By: #### A DIFF, FE, DIMER, FERR, ANEU, CBC #### [address] [address] Potassium [Moles/Vol] 4.1 mmol/L Normal 3.5-5.1 [facility] ([place] Comment on above: Performed By: #### A DIFF, FE, DIMER, FERR, ANEU, CBC #### [address] [address] Sodium [Moles/Vol] 137 mmol/L Normal 136-145 [facility] ([place] Comment on above: Performed By: #### A DIFF, FE, DIMER, FERR, ANEU, CBC #### [place] [phone] Urea nitrogen [Mass/Vol] 24 mg/dL High 7-18 [facility] ([place] Comment on above: Performed By: #### A DIFF, FE, DIMER, FERR, ANEU, CBC #### [address] [address] CBCon 10-28-2023 Erythrocyte distribution width (RBC) [Ratio] 19.3 % High 11.5-14.5 [facility] ([place] Comment on above: Performed By: #### A DIFF, FE, DIMER, FERR, ANEU, CBC #### [address] [address] Hematocrit (Bld) [Volume fraction] 33.4 % Low 37.0-47.0 [facility] ([place] Comment on above: Performed By: #### A DIFF, FE, DIMER, FERR, ANEU, CBC #### [address] [address] Hgb 10.6 G/dL Low 12.0-16.0 [facility] ([place] Comment on above: Performed By: #### A DIFF, FE, DIMER, FERR, ANEU, CBC #### [address] [address] MCH (RBC) [Entitic mass] 22.2 pg Low 27.0-31.2 [facility] ([place] Comment on above: Performed By: #### A DIFF, FE, DIMER, FERR, ANEU, CBC #### [address] [address] MCHC 31.6 G/dL Low 33.0-37.0 [facility] ([place] Comment on above: Performed By: #### A DIFF, FE, DIMER, FERR, ANEU, CBC #### [address] [address] MCV (RBC) [Entitic vol] 70.4 fL Low 80.0-94.0 [facility] ([place] Comment on above: Performed By: #### A DIFF, FE, DIMER, FERR, ANEU, CBC #### [address] [address] Platelet 367 10 3/mcL Normal 130-400 [facility] ([place] Comment on above: Performed By: #### A DIFF, FE, DIMER, FERR, ANEU, CBC #### [address] [address] Platelet mean volume (Bld) [Entitic vol] 7.2 fL Low 7.4-10.4 [facility] ([place] Comment on above: Performed By: #### A DIFF, FE, DIMER, FERR, ANEU, CBC #### [address] [address] RBC 4.74 10 6/mcL Normal 4.20-5.40 [facility] ([place] Comment on above: Performed By: #### A DIFF, FE, DIMER, FERR, ANEU, CBC #### [address] [address] WBC 8.5 10 3/mcL Normal 4.6-10.8 [facility] ([place] Comment on above: Performed By: #### A DIFF, FE, DIMER, FERR, ANEU, CBC #### [address] [address] [address] ANGIOGRAPHY CHEST W/CONTR Suki 10-28-2023 CT ANGIOGRAPHY CHEST W/CONTRAST ORIGINAL EXAMINATION: CTA OF THE CHEST 10/28/2023 10:41 am TECHNIQUE: CTA of the chest was performed after the administration of intravenous contrast. Multiplanar reformatted images are provided for review. MIP images are provided for review. Automated exposure control, iterative reconstruction, and/or weight based adjustment of the mA/kV was utilized to reduce the radiation dose to as low as reasonably achievable. COMPARISON: None. HISTORY: ORDERING SYSTEM PROVIDED HISTORY: Reason for Exam: chest pain; suspect PE FINDINGS: Mild degenerative changes are noted in the spine. Deformity of 1 of the right lower lateral ribs is partially visible, presumably the result of remote trauma. 4 mm right middle lobe nodule noted. This is considered benign and does not require additional imaging workup. Small areas of atelectasis are evident at the lateral aspect of the left lower lobe. There is some lingular involvement as well. No confluent infiltrate is visible and there is no pleural fluid seen. A small amount of pericardial recess fluid is noted. No mediastinal adenopathy is visible. Small sliding hiatal hernia noted. No pulmonary artery defect is identified on this exam. No additional contributory abnormality seen. IMPRESSION: No evidence for pulmonary embolism on this exam. Small areas of lingular and left lower lobe atelectasis. No other acute finding. Interpreted by: Grace Rivero MD Preliminary Report By: Grace Rivero MD Electronically signed By Grace Rivero MD Dictated Date: 10/28/2023 10:43:45 AM Prelim Date: 10/28/2023 10:48:13 AM Sign Date: 10/28/2023 10:48:13 AM Ordering Provider: [facility] ([place] LABORATORYOrdered By: SYSTEM SYSTEM on 10-28-2023 Basophil, Absolute 0.0 103/mcL Normal 0.0 - 0.2 10^3/mcL AO Workflow SS Basophils/100 WBC (Bld) 0.5 % Normal 0.0 - 2.5 % AO Workflow SS Calcium [Mass/Vol] 9.1 mg/dL Normal 8.4 - 10. 2 mg/dL AO ADM SS Chloride [Moles/Vol] 100 mmol/L Normal 98 - 107 mmol/L AO ADM SS CO2 [Moles/Vol] 27 mmol/L Normal 22 - 29 mmol/L AO ADM SS Creatinine [Mass/Vol] 0.93 mg/dL Normal 0.55 - 1.02 mg/dL AO ADM SS Electrolyte Balance 10.0 mEq/L Normal 4.0 - 15.0 mEq/L AO ADM SS Eosinophil, Absolute 0.3 103/mcL Normal 0.0 - 0.4 10^3/mcL AO Workflow SS Eosinophils/100 WBC (Bld) 3.5 % Normal 0.0 - 7.0 % AO Workflow SS Erythrocyte distribution width (RBC) [Ratio] 19.3 % High 11.5 - 14.5 % AO Workflow SS GFR/1.73 sq M.predicted among blacks MDRD (S/P/Bld) [Vol rate/Area] 78 ml/min/1.73sqm Invalid Interpretation Code AO Chemistry S Comment on above: Interpretive Data: GFR Population mean for , Non- Americans Ages 20-29 = 116 mL/min/1.73 sq.m. Ages 30-39 = 107 mL/min/1.73 sq.m. Ages 40-49 = 99 mL/min/1.73 sq.m. Ages 50-59 = 93 mL/min/1.73 sq.m. Ages 60-69 = 85 mL/min/1.73 sq.m. Ages 70+ = 75 mL/min/1.73 sq.m. Chronic Kidney Disease: Less than 60 mL/min/1.73 square meters End Stage Renal Disease: Less than 15 mL/min/1.73 square meters GFR/1.73 sq M.predicted among non-blacks MDRD (S/P/Bld) [Vol rate/Area] 64 ml/min/1.73sqm Invalid Interpretation Code AO Chemistry S Comment on above: Interpretive Data: GFR Population mean for , Non- Americans Ages 20-29 = 116 mL/min/1.73 sq.m. Ages 30-39 = 107 mL/min/1.73 sq.m. Ages 40-49 = 99 mL/min/1.73 sq.m. Ages 50-59 = 93 mL/min/1.73 sq.m. Ages 60-69 = 85 mL/min/1.73 sq.m. Ages 70+ = 75 mL/min/1.73 sq.m. Chronic Kidney Disease: Less than 60 mL/min/1.73 square meters End Stage Renal Disease: Less than 15 mL/min/1.73 square meters Glucose [Mass/Vol] 111 mg/dL High 70 - 105 mg/dL AO ADM SS Hematocrit (Bld) [Volume fraction] 33.4 % Low 37.0 - 47.0 % AO Workflow SS Hemoglobin (Bld) [Mass/Vol] 10.6 G/dL Low 12.0 - 16.0 G/dL AO Workflow SS Lymphocyte, Absolute 1.7 103/mcL Normal 0.8 - 3.9 10^3/mcL AO Workflow SS Lymphocytes/100 WBC (Bld) 20.2 % Normal 10.0 - 50.0 % AO Workflow SS MCH (RBC) [Entitic mass] 22.2 pg Low 27.0 - 31.2 pg AO Workflow SS MCHC 31.6 G/dL Low 33.0 - 37.0 G/dL AO Workflow SS MCV (RBC) [Entitic vol] 70.4 fL Low 80.0 - 94.0 fL AO Workflow SS Monocyte distribution width Auto (Bld) [Entitic vol] 20.70 1 High 0.00 - 20.00 AO Workflow SS Comment on above: Result Comment: For adults in ED, MDW>20.0 may be associated with a higher risk of sepsis during the first 12hrs of hospital admission Monocyte, Absolute 0.6 103/mcL Normal 0.2 - 1.0 10^3/mcL AO Workflow SS Monocytes/100 WBC (Bld) 6.9 % Normal 1.7 - 13.0 % AO Workflow SS Natriuretic peptide.B prohormone N-Terminal [Mass/Vol] 64 pg/mL Normal 0 - 125 pg/mL AO ADM SS Comment on above: Interpretive Data: N T-proBNP results of less than 300 pg/mL effectively rules out acute congestive heart failure with 99% negative predictive value. Neutrophil, Absolute 5.9 103/mcL Normal 2.9 - 6.2 10^3/mcL AO Workflow SS Neutrophils/100 WBC (Bld) 68.9 % Normal 37.0 - 80.0 % AO Workflow SS Platelet mean volume (Bld) [Entitic vol] 7.2 fL Low 7.4 - 10.4 fL AO Workflow SS Platelets (Bld) [#/Vol] 367 103/mcL Normal 130 - 400 10^3/mcL AO Workflow SS Potassium [Moles/Vol] 4.1 mmol/L Normal 3.5 - 5.1 mmol/L AO ADM SS RBC (Bld) [#/Vol] 4.74 106/mcL Normal 4.20 - 5.40 10^6/mcL AO Workflow SS Sodium [Moles/Vol] 137 mmol/L Normal 136 - 145 mmol/L AO ADM SS Troponin I.cardiac DL <= 0.01 ng/mL [Mass/Vol] ng/L Normal 0 - 51 ng/L AO ADM SS Comment on above: Interpretive Data: H igh Sensitive Troponin I Reference Ranges: Female: 0-51 ng/L Male: 0-76 ng/L Testing performed on Dimension EXL using a homogeneous sandwich chemiluminescent immunoassay based on [employer] technology. Urea nitrogen [Mass/Vol] 24 mg/dL High 7 - 18 mg/dL AO ADM SS Urea nitrogen/Creatinin e [Mass ratio] 26 ratio Normal 7 - 27 ratio AO ADM SS WBC (Bld) [#/Vol] 8.5 103/mcL Normal 4.6 - 10.8 10^3/mcL AO Workflow SS PBNPon 10-28-2023 Natriuretic peptide B (Bld) [Mass/Vol] 64 pg/mL Normal 0-125 [facility] ([place] Comment on above: Result Comment: NT-p roBNP results of less than 300 pg/mL effectively rules out acute congestive heart failure with 99% negative predictive value. Performed By: #### A DIFF, FE, DIMER, FERR, ANEU, CBC #### [address] [address] TROPHSon 10-28-2023 High Sensitivity Troponin I <4 Normal 0-51 [facility] ([place] Comment on above: Result Comment: High Sensitive Troponin I Reference Ranges: Female: 0-51 ng/L Male: 0-76 ng/L Testing performed on Dimension EXL using a homogeneous sandwich chemiluminescent immunoassay based on [employer] technology. Performed By: #### A DIFF, FE, DIMER, FERR, ANEU, CBC #### [address] [address] .Auto Diffon 10-27-2023 Basophil, Absolute 0.1 10 3/mcL Normal 0.0-0.2 [facility] ([place]) Comment on above: Performed By: #### V IDH, ANEU, DIMER, CBC, GFR, CMP, FT4, TSH, FERR, ADIFF #### [address] [address] Basophils/100 WBC (Bld) 0.7 % Normal 0.0-2.5 [facility] ([place] Comment on above: Performed By: #### V IDH, ANEU, DIMER, CBC, GFR, CMP, FT4, TSH, FERR, ADIFF #### [address] [address] Eosinophil, Absolute 0.3 10 3/mcL Normal 0.0-0.4 [facility] ([place] Comment on above: Performed By: #### V IDH, ANEU, DIMER, CBC, GFR, CMP, FT4, TSH, FERR, ADIFF #### [address] [address] Eosinophils/100 WBC (Bld) 3.5 % Normal 0.0-7.0 [facility] ([place] Comment on above: Performed By: #### V IDH, ANEU, DIMER, CBC, GFR, CMP, FT4, TSH, FERR, ADIFF #### [address] [address] Lymphocyte, Absolute 1.7 10 3/mcL Normal 0.8-3.9 [facility] ([place] Comment on above: Performed By: #### V IDH, ANEU, DIMER, CBC, GFR, CMP, FT4, TSH, FERR, ADIFF #### [address] [address] Lymphocytes/100 WBC (Bld) 19.4 % Normal 10.0-50.0 [facility] ([place]) Comment on above: Performed By: #### V IDH, ANEU, DIMER, CBC, GFR, CMP, FT4, TSH, FERR, ADIFF #### [address] [address] Monocyte, Absolute 0.6 10 3/mcL Normal 0.2-1.0 [facility] ([place]) Comment on above: Performed By: #### V IDH, ANEU, DIMER, CBC, GFR, CMP, FT4, TSH, FERR, ADIFF #### [address] [address] Monocytes/100 WBC (Bld) 6.5 % Normal 1.7-13.0 [facility] ([place]) Comment on above: Performed By: #### V IDH, ANEU, DIMER, CBC, GFR, CMP, FT4, TSH, FERR, ADIFF #### [address] [address] Neutrophils/100 WBC (Bld) 69.9 % Normal 37.0-80.0 Formerly [facility] ([place]) Comment on above: Performed By: #### V IDH, ANEU, DIMER, CBC, GFR, CMP, FT4, TSH, FERR, ADIFF #### [address] [address] .GFRon 10-27-2023 GFR 85 ml/min/1.73sqm Normal [facility] ([place]) Comment on above: Result Comment: GFR Population mean for , Non- Americans Ages 20-29 = 116 mL/min/1.73 sq.m. Ages 30-39 = 107 mL/min/1.73 sq.m. Ages 40-49 = 99 mL/min/1.73 sq.m. Ages 50-59 = 93 mL/min/1.73 sq.m. Ages 60-69 = 85 mL/min/1.73 sq.m. Ages 70+ = 75 mL/min/1.73 sq.m. Chronic Kidney Disease: Less than 60 mL/min/1.73 square meters End Stage Renal Disease: Less than 15 mL/min/1.73 square meters Performed By: #### A DIFF, FE, DIMER, FERR, ANEU, CBC #### [address] [address] GFR Non- 70 ml/min/1.73sqm Normal [facility] ([place]) Comment on above: Result Comment: GFR Population mean for , Non- Americans Ages 20-29 = 116 mL/min/1.73 sq.m. Ages 30-39 = 107 mL/min/1.73 sq.m. Ages 40-49 = 99 mL/min/1.73 sq.m. Ages 50-59 = 93 mL/min/1.73 sq.m. Ages 60-69 = 85 mL/min/1.73 sq.m. Ages 70+ = 75 mL/min/1.73 sq.m. Chronic Kidney Disease: Less than 60 mL/min/1.73 square meters End Stage Renal Disease: Less than 15 mL/min/1.73 square meters Performed By: #### A DIFF, FE, DIMER, FERR, ANEU, CBC #### [place] [address] .NEUABSon 10-27-2023 Neutrophil, Absolute 6.1 10 3/mcL Normal 2.9-6.2 [facility] ([place] Comment on above: Performed By: #### A DIFF, FE, DIMER, FERR, ANEU, CBC #### [place] [address] CBCon 10-27-2023 Erythrocyte distribution width (RBC) [Ratio] 19.3 % High 11.5-14.5 [facility] ([place] Comment on above: Performed By: #### V IDH, ANEU, DIMER, CBC, GFR, CMP, FT4, TSH, FERR, ADIFF #### [place] [address] Hematocrit (Bld) [Volume fraction] 34.6 % Low 37.0-47.0 [facility] ([place] Comment on above: Performed By: #### V IDH, ANEU, DIMER, CBC, GFR, CMP, FT4, TSH, FERR, ADIFF #### [place] [address] Hgb 10.7 G/dL Low 12.0-16.0 [facility] ([place] Comment on above: Performed By: #### V IDH, ANEU, DIMER, CBC, GFR, CMP, FT4, TSH, FERR, ADIFF #### [place] [address] MCH (RBC) [Entitic mass] 21.7 pg Low 27.0-31.2 [facility] ([place] Comment on above: Performed By: #### V IDH, ANEU, DIMER, CBC, GFR, CMP, FT4, TSH, FERR, ADIFF #### [place] [address] MCHC 30.8 G/dL Low 33.0-37.0 [facility] ([place] Comment on above: Performed By: #### V IDH, ANEU, DIMER, CBC, GFR, CMP, FT4, TSH, FERR, ADIFF #### [address] [address] MCV (RBC) [Entitic vol] 70.4 fL Low 80.0-94.0 [facility] ([place] Comment on above: Performed By: #### V IDH, ANEU, DIMER, CBC, GFR, CMP, FT4, TSH, FERR, ADIFF #### [address] [address] Platelet 383 10 3/mcL Normal 130-400 [facility] ([place] Comment on above: Performed By: #### V IDH, ANEU, DIMER, CBC, GFR, CMP, FT4, TSH, FERR, ADIFF #### [address] [address] Platelet mean volume (Bld) [Entitic vol] 7.3 fL Low 7.4-10.4 [facility] ([place] Comment on above: Performed By: #### V IDH, ANEU, DIMER, CBC, GFR, CMP, FT4, TSH, FERR, ADIFF #### [address] [address] RBC 4.91 10 6/mcL Normal 4.20-5.40 [facility] ([place] Comment on above: Performed By: #### V IDH, ANEU, DIMER, CBC, GFR, CMP, FT4, TSH, FERR, ADIFF #### [address] [address] WBC 8.7 10 3/mcL Normal 4.6-10.8 [facility] ([place] Comment on above: Performed By: #### V IDH, ANEU, DIMER, CBC, GFR, CMP, FT4, TSH, FERR, ADIFF #### [address] [address] CMPon 10-27-2023 Albumin Level 3.6 G/dL Normal 3.5-5.0 [facility] ([place] Comment on above: Performed By: #### A DIFF, FE, DIMER, FERR, ANEU, CBC #### [address] [address] Albumin/Globulin [Mass ratio] 0.9 {ratio} Low 1.1-2.5 [facility] ([place] Comment on above: Performed By: #### A DIFF, FE, DIMER, FERR, ANEU, CBC #### [address] [address] ALP [Catalytic activity/Vol] 157 U/L High 40-135 [facility] ([place] Comment on above: Performed By: #### A DIFF, FE, DIMER, FERR, ANEU, CBC #### [place] [address] ALT [Catalytic activity/Vol] 22 U/L Normal 14-59 [facility] ([place] Comment on above: Performed By: #### A DIFF, FE, DIMER, FERR, ANEU, CBC #### [place] [address] AST [Catalytic activity/Vol] 14 U/L Normal 10-40 [facility] ([place] Comment on above: Performed By: #### A DIFF, FE, DIMER, FERR, ANEU, CBC #### [place] [address] Bili Total 0.3 mg/dL Normal 0.2-1.0 [facility] ([place] Comment on above: Result Comment: Use of this assay is not recommended for patients undergoing treatment with eltrombopag due to the potential for falsely elevated results. Performed By: #### A DIFF, FE, DIMER, FERR, ANEU, CBC #### [place] [address] BUN/Creatinine Ratio 23 ratio Normal 7-27 [facility] ([place] Comment on above: Performed By: #### A DIFF, FE, DIMER, FERR, ANEU, CBC #### [place] [address] Calcium [Mass/Vol] 9.2 mg/dL Normal 8.4-10.2 [facility] ([place]) Comment on above: Performed By: #### A DIFF, FE, DIMER, FERR, ANEU, CBC #### [address] [address] Chloride [Moles/Vol] 99 mmol/L Normal 98-107 [facility] ([place] Comment on above: Performed By: #### A DIFF, FE, DIMER, FERR, ANEU, CBC #### [address] [address] CO2 [Moles/Vol] 29 mmol/L Normal 22-29 [facility] ([place] Comment on above: Performed By: #### A DIFF, FE, DIMER, FERR, ANEU, CBC #### [address] [address] Creatinine [Mass/Vol] 0.86 mg/dL Normal 0.55-1.02 [facility] ([place] Comment on above: Performed By: #### A DIFF, FE, DIMER, FERR, ANEU, CBC #### [address] [address] Electrolyte Balance 7.0 mEq/L Normal 4.0-15.0 [facility] ([place] Comment on above: Performed By: #### A DIFF, FE, DIMER, FERR, ANEU, CBC #### [address] [address] Globulin 4.2 G/dL Normal [facility] ([place] Comment on above: Performed By: #### A DIFF, FE, DIMER, FERR, ANEU, CBC #### [address] [address] Glucose [Mass/Vol] 100 mg/dL Normal 70-105 [facility] ([place]) Comment on above: Performed By: #### A DIFF, FE, DIMER, FERR, ANEU, CBC #### [address] [address] Potassium [Moles/Vol] 4.4 mmol/L Normal 3.5-5.1 [facility] ([place] Comment on above: Performed By: #### A DIFF, FE, DIMER, FERR, ANEU, CBC #### [address] [address] Sodium [Moles/Vol] 135 mmol/L Low 136-145 [facility] ([place] Comment on above: Performed By: #### A DIFF, FE, DIMER, FERR, ANEU, CBC #### [address] [address] Total Protein 7.8 G/dL Normal 6.4-8.2 [facility] ([place] Comment on above: Performed By: #### A DIFF, FE, DIMER, FERR, ANEU, CBC #### [address] [address] Urea nitrogen [Mass/Vol] 20 mg/dL High 7-18 [facility] ([place] Comment on above: Performed By: #### A DIFF, FE, DIMER, FERR, ANEU, CBC #### [address] [address] DIMERon 10-27-2023 D-Dimer 4310 ng/mL D-DU High 0-230 [facility] ([place] Comment on above: Result Comment: Resu lts reported in D-DU ng/mL. Positive for D-dimer. A positive D-Dimer may occur in the following: DVT, PE, DIC, Trauma, Cancer, Sepsis, , Rheumatoid arthritis, Myocardial infarction and Cirrhosis. The presence of Rheumatoid Factor and HAMA (human mouse antibody) produces an overestimation of test results. The result of the D-Dimer test should be evaluated in the context of all the clinical and laboratory data available. In those instances where the laboratory result does not agree with the clinical evaluation, additional tests should be performed accordingly. If the D-Dimer result is used to exclude DVT or PE, the recommended cutoff value is less than 230 ng/mL. The D-Dimer result should not be used alone to rule in DVT/PE, but should be used in conjunction with a clinical pretest probability (PTP)assessment model to exclude venous thromboembolism (VTE) in outpatients suspected of deep venous thrombosis (DVT) and pulmonary embolism (PE). Performed By: #### A DIFF, FE, DIMER, FERR, ANEU, CBC #### [address] [address] Sal 10-27-2023 Ferritin [Mass/Vol] 10.0 ng/mL Normal 8.0-252.0 [facility] ([place] Comment on above: Performed By: #### A DIFF, FE, DIMER, FERR, ANEU, CBC #### [address] [address] FT4on 10-27-2023 Free T4 [Mass/Vol] 1.01 ng/dL Normal 0.76-1.46 [facility]) Comment on above: Performed By: #### A DIFF, FE, DIMER, FERR, ANEU, CBC #### [place] [address] TSHon 10-27-2023 TSH Qn 2.22 m[IU]/L Normal 0.36-3.74 [facility]) Comment on above: Performed By: #### A DIFF, FE, DIMER, FERR, ANEU, CBC #### [address] [address] VIDHon 10-27-2023 Vit. D 25-Hydroxy 29.6 ng/mL Normal [facility]) Comment on above: Result Comment: Inte rpretive Values Based on Total 25(OH) Vitamin D: Deficient <20 ng/mL Insufficient 20 - <30 ng/mL Sufficient 30-100 ng/mL Performed By: #### A DIFF, FE, DIMER, FERR, ANEU, CBC #### [address] [address] .Auto Diffon 12-22-2022 Basophil, Absolute 0.1 10 3/mcL Normal 0.0-0.2 [facility]) Comment on above: Performed By: #### A DIFF, FE, DIMER, FERR, ANEU, CBC #### [address] [address] Basophils/100 WBC (Bld) 0.8 % Normal 0.0-2.5 [facility]) Comment on above: Performed By: #### A DIFF, FE, DIMER, FERR, ANEU, CBC #### [address] [address] Eosinophil, Absolute 0.5 10 3/mcL High 0.0-0.4 [facility] ([place] Comment on above: Performed By: #### A DIFF, FE, DIMER, FERR, ANEU, CBC #### [address] [address] Eosinophils/100 WBC (Bld) 7.1 % High 0.0-7.0 [facility] ([place] Comment on above: Performed By: #### A DIFF, FE, DIMER, FERR, ANEU, CBC #### [address] [address] Lymphocyte, Absolute 1.8 10 3/mcL Normal 0.8-3.9 [facility] ([place] Comment on above: Performed By: #### A DIFF, FE, DIMER, FERR, ANEU, CBC #### [address] [address] Lymphocytes/100 WBC (Bld) 26.6 % Normal 10.0-50.0 [facility] ([place] Comment on above: Performed By: #### A DIFF, FE, DIMER, FERR, ANEU, CBC #### [address] [address] Monocyte, Absolute 0.4 10 3/mcL Normal 0.2-1.0 [facility] ([place]) Comment on above: Performed By: #### A DIFF, FE, DIMER, FERR, ANEU, CBC #### [address] [address] Monocytes/100 WBC (Bld) 5.3 % Normal 1.7-13.0 [facility] ([place] Comment on above: Performed By: #### A DIFF, FE, DIMER, FERR, ANEU, CBC #### [address] [address] Neutrophils/100 WBC (Bld) 60.2 % Normal 37.0-80.0 [facility] ([place] Comment on above: Performed By: #### A DIFF, FE, DIMER, FERR, ANEU, CBC #### [address] [address] .NEUABSon 12-22-2022 Neutrophil, Absolute 4.0 10 3/mcL Normal 2.9-6.2 [facility] ([place] Comment on above: Performed By: #### A DIFF, FE, DIMER, FERR, ANEU, CBC #### [address] [address] CBCon 12-22-2022 Erythrocyte distribution width (RBC) [Ratio] 17.5 % High 11.5-14.5 [facility] ([place] Comment on above: Performed By: #### A DIFF, FE, DIMER, FERR, ANEU, CBC #### [place] [id number] Hematocrit (Bld) [Volume fraction] 33.4 % Low 37.0-47.0 [facility] ([place] Comment on above: Performed By: #### A DIFF, FE, DIMER, FERR, ANEU, CBC #### [address] [address] Hgb 10.5 G/dL Low 12.0-16.0 [facility] ([place] Comment on above: Performed By: #### A DIFF, FE, DIMER, FERR, ANEU, CBC #### [address] [address] MCH (RBC) [Entitic mass] 23.6 pg Low 27.0-31.2 [facility] ([place] Comment on above: Performed By: #### A DIFF, FE, DIMER, FERR, ANEU, CBC #### [address] [address] MCHC 31.5 G/dL Low 33.0-37.0 [facility] ([place] Comment on above: Performed By: #### A DIFF, FE, DIMER, FERR, ANEU, CBC #### [address] [address] MCV (RBC) [Entitic vol] 74.9 fL Low 80.0-94.0 [facility] ([place] Comment on above: Performed By: #### A DIFF, FE, DIMER, FERR, ANEU, CBC #### [address] [address] Platelet 304 10 3/mcL Normal 130-400 [facility] ([place] Comment on above: Performed By: #### A DIFF, FE, DIMER, FERR, ANEU, CBC #### [place] [address] Platelet mean volume (Bld) [Entitic vol] 7.7 fL Normal 7.4-10.4 [facility] ([place] Comment on above: Performed By: #### A DIFF, FE, DIMER, FERR, ANEU, CBC #### [place] [address] RBC 4.46 10 6/mcL Normal 4.20-5.40 [facility] ([place] Comment on above: Performed By: #### A DIFF, FE, DIMER, FERR, ANEU, CBC #### [place] [address] WBC 6.7 10 3/mcL Normal 4.6-10.8 [facility]) Comment on above: Performed By: #### A DIFF, FE, DIMER, FERR, ANEU, CBC #### [address] [address] Sal 12-22-2022 Ferritin [Mass/Vol] 14.0 ng/mL Normal 8.0-252.0 [facility] ([place] Comment on above: Performed By: #### F ERR #### [place] [address] LABORATORYOrdered By: SYSTEM SYSTEM on 12-22-2022 Ferritin [Mass/Vol] 14.0 ng/mL Invalid Interpretation Code 8.0 - 252.0 ng/mL AO ADM SS 25-hydroxyvitamin D3 [Mass/Vol] 25.7 ng/mL Invalid Interpretation Code AO ADM SS Comment on above: Interpretive Data: I nterpretive Values Based on Total 25(OH) Vitamin D: Deficient <20 ng/mL Insufficient 20 - <30 ng/mL Sufficient 30-100 ng/mL Basophil, Absolute 0.1 103/mcL Invalid Interpretation Code 0.0 - 0.2 10^3/mcL AO Workflow SS Basophils/100 WBC (Bld) 0.8 % Invalid Interpretation Code 0.0 - 2.5 % AO Workflow SS Eosinophil, Absolute 0.5 103/mcL Invalid Interpretation Code 0.0 - 0.4 10^3/mcL AO Workflow SS Eosinophils/100 WBC (Bld) 7.1 % Invalid Interpretation Code 0.0 - 7.0 % AO Workflow SS Erythrocyte distribution width (RBC) [Ratio] 17.5 % Invalid Interpretation Code 11.5 - 14.5 % AO Workflow SS Hematocrit (Bld) [Volume fraction] 33.4 % Invalid Interpretation Code 37.0 - 47.0 % AO Workflow SS Hemoglobin (Bld) [Mass/Vol] 10.5 G/dL Invalid Interpretation Code 12.0 - 16.0 G/dL AO Workflow SS Immature reticulocytes/Tota l reticulocytes (Bld) 0.45 IRF Invalid Interpretation Code 0.20 - 0.46 IRF AO Workflow SS Lymphocyte, Absolute 1.8 103/mcL Invalid Interpretation Code 0.8 - 3.9 10^3/mcL AO Workflow SS Lymphocytes/100 WBC (Bld) 26.6 % Invalid Interpretation Code 10.0 - 50.0 % AO Workflow SS MCH (RBC) [Entitic mass] 23.6 pg Invalid Interpretation Code 27.0 - 31.2 pg AO Workflow SS MCHC 31.5 G/dL Invalid Interpretation Code 33.0 - 37.0 G/dL AO Workflow SS MCV (RBC) [Entitic vol] 74.9 fL Invalid Interpretation Code 80.0 - 94.0 fL AO Workflow SS Monocyte, Absolute 0.4 103/mcL Invalid Interpretation Code 0.2 - 1.0 10^3/mcL AO Workflow SS Monocytes/100 WBC (Bld) 5.3 % Invalid Interpretation Code 1.7 - 13.0 % AO Workflow SS Neutrophil, Absolute 4.0 103/mcL Invalid Interpretation Code 2.9 - 6.2 10^3/mcL AO Workflow SS Neutrophils/100 WBC (Bld) 60.2 % Invalid Interpretation Code 37.0 - 80.0 % AO Workflow SS Platelet mean volume (Bld) [Entitic vol] 7.7 fL Invalid Interpretation Code 7.4 - 10.4 fL AO Workflow SS Platelets (Bld) [#/Vol] 304 103/mcL Invalid Interpretation Code 130 - 400 10^3/mcL AO Workflow SS RBC (Bld) [#/Vol] 4.46 106/mcL Invalid Interpretation Code 4.20 - 5.40 10^6/mcL AO Workflow SS Reticulocytes, Auto 1.6 1 Invalid Interpretation Code 0.2 - 2.3 % AO Workflow SS WBC (Bld) [#/Vol] 6.7 103/mcL Invalid Interpretation Code 4.6 - 10.8 10^3/mcL AO Workflow SS RETO (AO)on 12-22-2022 Immature Retic Fraction 0.45 IRF Normal 0.20-0.46 [facility] ([place] Comment on above: Performed By: #### A DIFF, FE, DIMER, FERR, ANEU, CBC #### [address] [address] Reticulocytes, Auto 1.6 % Normal 0.2-2.3 [facility] ([place] Comment on above: Performed By: #### A DIFF, FE, DIMER, FERR, ANEU, CBC #### [address] [address] VIDHon 12-22-2022 Vit. D 25-Hydroxy 25.7 ng/mL Normal [facility] ([place] Comment on above: Result Comment: Inte rpretive Values Based on Total 25(OH) Vitamin D: Deficient <20 ng/mL Insufficient 20 - <30 ng/mL Sufficient 30-100 ng/mL Performed By: #### A DIFF, FE, DIMER, FERR, ANEU, CBC #### [address] [address] LABORATORYOrdered By: SYSTEM SYSTEM on 06-29-2022 Albumin BCP dye [Mass/Vol] 3.7 G/dL Invalid Interpretation Code 3.5 - 5.0 G/dL AO ADM SS Albumin/Globulin [Mass ratio] 1.0 {ratio} Invalid Interpretation Code 1.1 - 2.5 ratio AO ADM SS ALP [Catalytic activity/Vol] 140 U/L Invalid Interpretation Code 40 - 135 U/L AO ADM SS ALT With P-5'-P [Catalytic activity/Vol] 34 U/L Invalid Interpretation Code 14 - 59 U/L AO ADM SS AST With P-5'-P [Catalytic activity/Vol] 20 U/L Invalid Interpretation Code 10 - 40 U/L AO ADM SS Bilirubin [Mass/Vol] 0.4 mg/dL Invalid Interpretation Code 0.2 - 1.0 mg/dL AO ADM SS Calcium [Mass/Vol] 8.7 mg/dL Invalid Interpretation Code 8.4 - 10.2 mg/dL AO ADM SS Chloride [Moles/Vol] 103 mmol/L Invalid Interpretation Code 98 - 107 mmol/L AO ADM SS CO2 [Moles/Vol] 31 mmol/L Invalid Interpretation Code 22 - 29 mmol/L AO ADM SS Creatinine [Mass/Vol] 1.01 mg/dL Invalid Interpretation Code 0.55 - 1.02 mg/dL AO ADM SS Electrolyte Balance 5.0 mEq/L Invalid Interpretation Code 4.0 - 15.0 mEq/L AO ADM SS GFR 71 ml/min/1.73sqm Invalid Interpretation Code AO Chemistry S GFR Non- 59 ml/min/1.73sqm Invalid Interpretation Code AO Chemistry S Globulin 3.6 G/dL Invalid Interpretation Code AO ADM SS Glucose [Mass/Vol] 96 mg/dL Invalid Interpretation Code 70 - 105 mg/dL AO ADM SS Lipase [Catalytic activity/Vol] 32 U/L Invalid Interpretation Code 16 - 77 U/L AO ADM SS Potassium [Moles/Vol] 4.2 mmol/L Invalid Interpretation Code 3.5 - 5.1 mmol/L AO ADM SS Protein [Mass/Vol] 7.3 G/dL Invalid Interpretation Code 6.4 - 8.2 G/dL AO ADM SS Sodium [Moles/Vol] 139 mmol/L Invalid Interpretation Code 136 - 145 mmol/L AO ADM SS Urea nitrogen [Mass/Vol] 16 mg/dL Invalid Interpretation Code 7 - 18 mg/dL AO ADM SS Urea nitrogen/Creatinin e [Mass ratio] 16 ratio Invalid Interpretation Code 7 - 27 ratio AO ADM SS LABORATORYOrdered By: Abiola Carlin on 06-29-2022 Appearance (U) Clear (06/29/22 11:54 AM) Invalid Interpretation Code Clear AO Auto Urine SS Basophil, Absolute 0.1 103/mcL Invalid Interpretation Code 0.0 - 0.2 10^3/mcL AO Workflow SS Basophils/100 WBC (Bld) 0.6 % Invalid Interpretation Code 0.0 - 2.5 % AO Workflow SS Bilirubin Ql (U) Negative (06/29/22 11:54 AM) Invalid Interpretation Code Negative AO Auto Urine SS Color (U) Yellow (06/29/22 11:54 AM) Invalid Interpretation Code AO Auto Urine SS Eosinophil, Absolute 0.4 103/mcL Invalid Interpretation Code 0.0 - 0.4 10^3/mcL AO Workflow SS Eosinophils/100 WBC (Bld) 3.8 % Invalid Interpretation Code 0.0 - 7.0 % AO Workflow SS Erythrocyte distribution width (RBC) [Ratio] 15.5 % Invalid Interpretation Code 11.5 - 14.5 % AO Workflow SS Glucose Test strip (U) [Mass/Vol] Negative Invalid Interpretation Code Negativemg /dL AO Auto Urine SS HCG ( test) Ql Negative (06/29/22 11:54 AM) Invalid Interpretation Code AO Manual Urine SS Hematocrit (Bld) [Volume fraction] 35.3 % Invalid Interpretation Code 37.0 - 47.0 % AO Workflow SS Hemoglobin (Bld) [Mass/Vol] 11.7 G/dL Invalid Interpretation Code 12.0 - 16.0 G/dL AO Workflow SS Hemoglobin Auto test strip (U) [Mass/Vol] Trace *ABN* (06/29/22 11:54 AM) Invalid Interpretation Code Negative AO Auto Urine SS Ketones Ql (U) Negative Invalid Interpretation Code Negativemg /dL AO Auto Urine SS Lymphocyte, Absolute 2.1 103/mcL Invalid Interpretation Code 0.8 - 3.9 10^3/mcL AO Workflow SS Lymphocytes/100 WBC (Bld) 21.2 % Invalid Interpretation Code 10.0 - 50.0 % AO Workflow SS MCH (RBC) [Entitic mass] 26.8 pg Invalid Interpretation Code 27.0 - 31.2 pg AO Workflow SS MCHC 33.2 G/dL Invalid Interpretation Code 33.0 - 37.0 G/dL AO Workflow SS MCV (RBC) [Entitic vol] 80.6 fL Invalid Interpretation Code 80.0 - 94.0 fL AO Workflow SS Monocyte distribution width Auto (Bld) [Entitic vol] 21.94 Invalid Interpretation Code 0.00 - 20.00 AO Workflow SS Comment on above: Result Comment: For adults in ED, MDW>20.0 may be associated with a higher risk of sepsis during the first 12hrs of hospital admission Monocyte, Absolute 0.5 103/mcL Invalid Interpretation Code 0.2 - 1.0 10^3/mcL AO Workflow SS Monocytes/100 WBC (Bld) 5.0 % Invalid Interpretation Code 1.7 - 13.0 % AO Workflow SS Neutrophil, Absolute 6.7 103/mcL Invalid Interpretation Code 2.9 - 6.2 10^3/mcL AO Workflow SS Neutrophils/100 WBC (Bld) 69.4 % Invalid Interpretation Code 37.0 - 80.0 % AO Workflow SS Platelet mean volume (Bld) [Entitic vol] 6.9 fL Invalid Interpretation Code 7.4 - 10.4 fL AO Workflow SS Platelets (Bld) [#/Vol] 308 103/mcL Invalid Interpretation Code 130 - 400 10^3/mcL AO Workflow SS test (u) int Not detected Invalid Interpretation Code AO Manual Urine SS RBC (Bld) [#/Vol] 4.38 106/mcL Invalid Interpretation Code 4.20 - 5.40 10^6/mcL AO Workflow SS UA Leuk Est Trace *ABN* (06/29/22 11:54 AM) Invalid Interpretation Code Negative AO Auto Urine SS UA Nitrite Negative (06/29/22 11:54 AM) Invalid Interpretation Code Negative AO Auto Urine SS UA pH 5.0 (06/29/22 11:54 AM) Invalid Interpretation Code 5.0 - 8.0 AO Auto Urine SS UA Protein Negative Invalid Interpretation Code Negativemg /dL AO Auto Urine SS UA RBC None Seen /HPF Invalid Interpretation Code None Seen/HPF AO Auto Urine SS UA Spec Grav 1.010 *ABN* (06/29/22 11:54 AM) Invalid Interpretation Code 1.015-1.02 5 AO Auto Urine SS UA Specimen Type Clean Catch (06/29/22 11:54 AM) Invalid Interpretation Code AO Auto Urine SS UA Squam Epithelial 0-5 /HPF Invalid Interpretation Code None Seen/HPF AO Auto Urine SS UA Urobilinogen 0.2 E.U./dL Invalid Interpretation Code 0.2-1.0E.U ./dL AO Auto Urine SS WBC (Bld) [#/Vol] 9.7 103/mcL Invalid Interpretation Code 4.6 - 10.8 10^3/mcL AO Workflow SS WBC LM.HPF (Urine sed) [#/Area] 0-5 /HPF Invalid Interpretation Code None Seen/HPF AO Auto Urine SS LABORATORYOrdered By: Alesia Romero on 11-21-2021 Albumin BCP dye [Mass/Vol] 3.5 G/dL Invalid Interpretation Code 3.5 - 5.0 G/dL AO ADM SS Albumin/Globulin [Mass ratio] 0.9 {ratio} Invalid Interpretation Code 1.1 - 2.5 ratio AO ADM SS ALP [Catalytic activity/Vol] 153 U/L Invalid Interpretation Code 40 - 135 U/L AO ADM SS ALT With P-5'-P [Catalytic activity/Vol] 26 U/L Invalid Interpretation Code 14 - 59 U/L AO ADM SS Appearance (U) Clear (11/21/21 3:25 PM) Invalid Interpretation Code Clear AO Auto Urine SS AST With P-5'-P [Catalytic activity/Vol] 23 U/L Invalid Interpretation Code 10 - 40 U/L AO ADM SS Bacteria LM.HPF (Urine sed) [#/Area] 1 /[HPF] Invalid Interpretation Code AO Auto Urine SS Bilirubin [Mass/Vol] 0.3 mg/dL Invalid Interpretation Code 0.2 - 1.0 mg/dL AO ADM SS Bilirubin Ql (U) Negative (11/21/21 3:25 PM) Invalid Interpretation Code Negative AO Auto Urine SS Calcium [Mass/Vol] 8.5 mg/dL Invalid Interpretation Code 8.4 - 10.2 mg/dL AO ADM SS Chloride [Moles/Vol] 105 mmol/L Invalid Interpretation Code 98 - 107 mmol/L AO ADM SS CO2 [Moles/Vol] 27 mmol/L Invalid Interpretation Code 22 - 29 mmol/L AO ADM SS Color (U) Yellow (11/21/21 3:25 PM) Invalid Interpretation Code AO Auto Urine SS Creatinine [Mass/Vol] 0.88 mg/dL Invalid Interpretation Code 0.55 - 1.02 mg/dL AO ADM SS Electrolyte Balance 10.0 mEq/L Invalid Interpretation Code 4.0 - 15.0 mEq/L AO ADM SS Globulin 4.0 G/dL Invalid Interpretation Code AO ADM SS Glucose [Mass/Vol] 86 mg/dL Invalid Interpretation Code 70 - 105 mg/dL AO ADM SS Glucose Test strip (U) [Mass/Vol] Negative Invalid Interpretation Code Negativemg /dL AO Auto Urine SS HCG ( test) Ql Negative (11/21/21 3:25 PM) Invalid Interpretation Code AO Manual Urine SS Hemoglobin Auto test strip (U) [Mass/Vol] Negative (11/21/21 3:25 PM) Invalid Interpretation Code Negative AO Auto Urine SS Ketones Ql (U) Negative Invalid Interpretation Code Negativemg /dL AO Auto Urine SS Potassium [Moles/Vol] 4.3 mmol/L Invalid Interpretation Code 3.5 - 5.1 mmol/L AO ADM SS test (u) int Not detected Invalid Interpretation Code AO Manual Urine SS Protein [Mass/Vol] 7.5 G/dL Invalid Interpretation Code 6.4 - 8.2 G/dL AO ADM SS Sodium [Moles/Vol] 142 mmol/L Invalid Interpretation Code 136 - 145 mmol/L AO ADM SS UA Leuk Est Trace *ABN* (11/21/21 3:25 PM) Invalid Interpretation Code Negative AO Auto Urine SS UA Mucous 2+ /HPF Invalid Interpretation Code AO Auto Urine SS UA Nitrite Negative (11/21/21 3:25 PM) Invalid Interpretation Code Negative AO Auto Urine SS UA pH 5.5 (11/21/21 3:25 PM) Invalid Interpretation Code 5.0 - 8.0 AO Auto Urine SS UA Protein Negative Invalid Interpretation Code Negativemg /dL AO Auto Urine SS UA RBC 0-5 /HPF Invalid Interpretation Code None Seen/HPF AO Auto Urine SS UA Spec Grav 1.025 (11/21/21 3:25 PM) Invalid Interpretation Code 1.015-1.02 5 AO Auto Urine SS UA Specimen Type Clean Catch (11/21/21 3:25 PM) Invalid Interpretation Code AO Auto Urine SS UA Squam Epithelial 0-5 /HPF Invalid Interpretation Code None Seen/HPF AO Auto Urine SS UA Urobilinogen 0.2 E.U./dL Invalid Interpretation Code 0.2-1.0E.U ./dL AO Auto Urine SS Urea nitrogen [Mass/Vol] 17 mg/dL Invalid Interpretation Code 7 - 18 mg/dL AO ADM SS Urea nitrogen/Creatinin e [Mass ratio] 19 ratio Invalid Interpretation Code 7 - 27 ratio AO ADM SS WBC LM.HPF (Urine sed) [#/Area] 5-10 /HPF Invalid Interpretation Code None Seen/HPF AO Auto Urine SS LABORATORYOrdered By: Veronica Hu on 11-21-2021 Basophil, Absolute 0.0 103/mcL Invalid Interpretation Code 0.0 - 0.2 10^3/mcL AO Workflow SS Basophils/100 WBC (Bld) 0.6 % Invalid Interpretation Code 0.0 - 2.5 % AO Workflow SS Eosinophil, Absolute 0.4 103/mcL Invalid Interpretation Code 0.0 - 0.4 10^3/mcL AO Workflow SS Eosinophils/100 WBC (Bld) 6.5 % Invalid Interpretation Code 0.0 - 7.0 % AO Workflow SS Erythrocyte distribution width (RBC) [Ratio] 15.8 % Invalid Interpretation Code 11.5 - 14.5 % AO Workflow SS Hematocrit (Bld) [Volume fraction] 35.9 % Invalid Interpretation Code 37.0 - 47.0 % AO Workflow SS Hemoglobin (Bld) [Mass/Vol] 12.0 G/dL Invalid Interpretation Code 12.0 - 16.0 G/dL AO Workflow SS Lymphocyte, Absolute 1.8 103/mcL Invalid Interpretation Code 0.8 - 3.9 10^3/mcL AO Workflow SS Lymphocytes/100 WBC (Bld) 27.6 % Invalid Interpretation Code 10.0 - 50.0 % AO Workflow SS MCH (RBC) [Entitic mass] 26.8 pg Invalid Interpretation Code 27.0 - 31.2 pg AO Workflow SS MCHC 33.3 G/dL Invalid Interpretation Code 33.0 - 37.0 G/dL AO Workflow SS MCV (RBC) [Entitic vol] 80.4 fL Invalid Interpretation Code 80.0 - 94.0 fL AO Workflow SS Monocyte distribution width Auto (Bld) [Entitic vol] 21.93 Invalid Interpretation Code 0.00 - 20.00 AO Workflow SS Comment on above: Result Comment: For adults in ED, MDW>20.0 may be associated with a higher risk of sepsis during the first 12hrs of hospital admission Monocyte, Absolute 0.5 103/mcL Invalid Interpretation Code 0.2 - 1.0 10^3/mcL AO Workflow SS Monocytes/100 WBC (Bld) 7.2 % Invalid Interpretation Code 1.7 - 13.0 % AO Workflow SS Neutrophil, Absolute 3.7 103/mcL Invalid Interpretation Code 2.9 - 6.2 10^3/mcL AO Workflow SS Neutrophils/100 WBC (Bld) 58.1 % Invalid Interpretation Code 37.0 - 80.0 % AO Workflow SS Platelet mean volume (Bld) [Entitic vol] 7.2 fL Invalid Interpretation Code 7.4 - 10.4 fL AO Workflow SS Platelets (Bld) [#/Vol] 283 103/mcL Invalid Interpretation Code 130 - 400 10^3/mcL AO Workflow SS RBC (Bld) [#/Vol] 4.47 106/mcL Invalid Interpretation Code 4.20 - 5.40 10^6/mcL AO Workflow SS WBC 6.4 103/mcL Invalid Interpretation Code 4.6 - 10.8 10^3/mcL AO Workflow SS LABORATORYOrdered By: SYSTEM SYSTEM on 11-21-2021 GFR 83 ml/min/1.73sqm Invalid Interpretation Code AO Chemistry S GFR Non- 69 ml/min/1.73sqm Invalid Interpretation Code AO Chemistry S URINE CULTUREon 07-20-2021 Bacteria identified Cx Nom (U) URINE RESULT >100,000 COL/ML MIXED VEGA-PLEASE REPEAT-POSSIBLE [facility]IN [facility]: Order Comment: Campu s: MAS DIPSTICKon 07-19-2021 POC APPEARANCE HAZY Normal CLEAR [facility] Comment on above: Order Comment: Campu s: MAS POC BILIRUBIN Negative Normal NEGATIVE [facility] Comment on above: Order Comment: Campu s: MAS POC BLOOD Negative Normal NEGATIVE [facility] Comment on above: Order Comment: Campu s: MAS POC COLOR YELLOW Normal [facility] Comment on above: Order Comment: Campu s: MAS POC KETONE 5 MG/DL Normal NEGATIVE [facility] Comment on above: Order Comment: Campu s: MAS POC LEUK EST 70 BRICE/uL Normal NEGATIVE [facility] Comment on above: Order Comment: Campu s: MAS POC NITRITE Negative Normal NEGATIVE [facility] Comment on above: Order Comment: Campu s: MAS POC PROTEIN 30 MG/DL Normal NEGATIVE [facility] Comment on above: Order Comment: Campu s: MAS POC SPEC GRAV 1.030 Normal 1.005-1.03 0 [facility] Comment on above: Order Comment: Campu s: MAS POC UA GLUCOSE NORMAL Normal NORMAL [facility] Comment on above: Order Comment: Campu s: MAS POC UA PH 5.0 Normal 5-6 [facility] Comment on above: Order Comment: Campu s: MAS POC UROBIL 1.0 MG/DL Normal NORMAL [facility] Comment on above: Order Comment: Brennonu s: MAS MSCon 07-19-2021 [facility] REPORT Normal [facility] DATE OF SERVICE: 11/2021 REASON FOR VISIT: Dysuria with abdominal discomfort. HISTORY OF THE PRESENT ILLNESS: This is a 45-year-old female presented with lower abdominal discomfort for the last 2 days with dysuria and frequency of urination. No fever or chills. REVIEW OF SYSTEMS: Review of other systems normal. ALLERGIES: SULFA. MEDICATIONS: List was reviewed. PHYSICAL EXAMINATION: She is awake, alert, not in distress. No dyspnea. Temperature 97.5, blood pressure 134/86, pulse 60, respirations 16, pulse oximetry 96% on room air. Pain score 5/10, body weight 290 pounds. HEENT: Unremarkable. Chest: Clear to auscultation. Heart: Regular rate and rhythm. Mild lower abdominal discomfort. No CVA tenderness. Urine dipstick was positive for leukocyte esterase and protein. ASSESSMENT: Urinary tract infection. PLAN: Clinical plan was discussed with patient in detail. I prescribed her Macrobid 100 mg twice a day for 5 days with no refill. I will send urine for [facility] PATIENT NAME: RAIN MURPHY [address] Mathur MEDICAL REC #: [id number] [place] [address] [facility] REPORT [facility] PHYSICIAN culture. She should drink a lot of fluid, Tylenol as needed, and follow with her doctor if there is no improvement. Patient understood and agreed. Bridger Croft MD [id number] SSI File#: [id number] END OF DOCUMENT / CHANGE LOG FOLLOWS Last Edited By [employer]. Signed By Bridger Croft MD #PAWPR Bridger Croft MD #PAWPR on 07/24/2021 13:38 ET on 07/24/2021 13:38 ET Revision Number - 2 Verified/Reviewed by 07/24/21 1338 PAWPR [facility] PATIENT NAME: RAIN MURPHY [address] [place]ur MEDICAL REC #: [id number] [place] [address] [facility] RE[facility]YSIC[facility] Normal [facility] LABORATORYOrdered By: Fiordaliza Alford on 03-15-2021 Beta HCG ( test) Ql (U) Negative (03/15/21 7:35 AM) [facility] Work Phone: LABORATORYOrdered By: SYSTEM SYSTEM on 03-04-2021 Albumin BCP dye [Mass/Vol] 3.3 G/dL Invalid Interpretation Code 3.2 - 4.8 G/dL ADM SS Albumin/Globulin [Mass ratio] 0.8 {ratio} Invalid Interpretation Code 0.9 - 1.6 ratio AH ADM SS ALP [Catalytic activity/Vol] 147 U/L Invalid Interpretation Code 38 - 126 U/L AH ADM SS ALT No additional P-5'-P [Catalytic activity/Vol] 17 U/L Invalid Interpretation Code 10 - 49 U/L AH ADM SS AST [Catalytic activity/Vol] 19 U/L Invalid Interpretation Code 8 - 34 U/L AH ADM SS Basophils (Bld) [#/Vol] 0.00 103/mcL Invalid Interpretation Code 0.00 - 0.27 10^3/mcL AH Remisol SS Basophils/100 WBC (Bld) 0.7 % Invalid Interpretation Code 0.0 - 2.5 % AH Remisol SS Bilirubin [Mass/Vol] 0.30 mg/dL Invalid Interpretation Code 0.20 - 1.20 mg/dL AH ADM SS Calcium [Mass/Vol] 9.2 mg/dL Invalid Interpretation Code 8.7 - 10.4 mg/dL AH ADM SS Chloride [Moles/Vol] 107 mmol/L Invalid Interpretation Code 98 - 110 mEq/L AH ADM SS CO2 [Moles/Vol] 28 mmol/L Invalid Interpretation Code 22 - 32 mEq/L AH ADM SS Creatinine [Mass/Vol] 0.70 mg/dL Invalid Interpretation Code 0.50 - 1.20 mg/dL AH ADM SS Electrolyte Balance 4.0 mEq/L Invalid Interpretation Code 4.0 - 15.0 mEq/L AH ADM SS Eosinophils (Bld) [#/Vol] 0.40 103/mcL Invalid Interpretation Code 0.00 - 0.65 10^3/mcL AH Remisol SS Eosinophils/100 WBC (Bld) 7.3 % Invalid Interpretation Code 0.0 - 6.0 % AH Remisol SS Erythrocyte distribution width (RBC) [Ratio] 18.2 % Invalid Interpretation Code 11.5 - 15.5 % AH Remisol SS GFR/1.73 sq M.predicted among blacks MDRD (S/P/Bld) [Vol rate/Area] ml/min/1.73sqm Invalid Interpretation Code AH Chemistry S GFR/1.73 sq M.predicted among non-blacks MDRD (S/P/Bld) [Vol rate/Area] ml/min/1.73sqm Invalid Interpretation Code Chemistry S Globulin 3.9 G/dL Invalid Interpretation Code 1.5 - 3.8 G/dL AH ADM SS Glucose [Mass/Vol] 101 mg/dL Invalid Interpretation Code 70 - 110 mg/dL AH ADM SS Hematocrit (Bld) [Volume fraction] 34.6 % Invalid Interpretation Code 34.0 - 46.0 % AH Remisol SS Hemoglobin (Bld) [Mass/Vol] 11.4 G/dL Invalid Interpretation Code 12.0 - 16.0 G/dL AH Remisol SS Lymphocytes (Bld) [#/Vol] 1.80 103/mcL Invalid Interpretation Code 0.90 - 4.32 10^3/mcL AH Remisol SS Lymphocytes/100 WBC (Bld) 29.4 % Invalid Interpretation Code 20.0 - 40.0 % AH Remisol SS MCH (RBC) [Entitic mass] 24.2 pg Invalid Interpretation Code 27.0 - 33.0 pg AH Remisol SS MCHC (RBC) [Mass/Vol] 32.9 G/dL Invalid Interpretation Code 32.0 - 36.0 G/dL AH Remisol SS MCV (RBC) [Entitic vol] 73.5 fL Invalid Interpretation Code 80.0 - 99.0 fL AH Remisol SS Monocytes (Bld) [#/Vol] 0.40 103/mcL Invalid Interpretation Code 0.09 - 1.40 10^3/mcL AH Remisol SS Monocytes/100 WBC (Bld) 7.2 % Invalid Interpretation Code 2.0 - 13.0 % AH Remisol SS Neutrophils (Bld) [#/Vol] 3.30 103/mcL Invalid Interpretation Code 2.25 - 8.10 10^3/mcL AH Remisol SS Neutrophils/100 WBC (Bld) 55.4 % Invalid Interpretation Code 50.0 - 75.0 % AH Remisol SS Platelet mean volume (Bld) [Entitic vol] 7.4 fL Invalid Interpretation Code 6.6 - 10.5 fL AH Remisol SS Platelets (Bld) [#/Vol] 298 103/mcL Invalid Interpretation Code 150 - 450 10^3/mcL AH Remisol SS Potassium [Moles/Vol] 4.4 mmol/L Invalid Interpretation Code 3.5 - 5.0 mEq/L AH ADM SS Protein [Mass/Vol] 7.2 G/dL Invalid Interpretation Code 5.7 - 8.2 G/dL AH ADM SS RBC (Bld) [#/Vol] 4.71 106/mcL Invalid Interpretation Code 4.10 - 5.30 10^6/mcL AH Remisol SS Sodium [Moles/Vol] 139 mmol/L Invalid Interpretation Code 136 - 145 mEq/L AH ADM SS Urea nitrogen [Mass/Vol] 23.0 mg/dL Invalid Interpretation Code 8.0 - 22.0 mg/dL AH ADM SS Urea nitrogen/Creatinin e [Mass ratio] 32.9 ratio Invalid Interpretation Code 10.0 - 22.0 ratio AH ADM SS WBC (Bld) [#/Vol] 6.00 103/mcL Invalid Interpretation Code 4.50 - 10.80 10^3/mcL AH Remisol SS Vital Signs Date Time Vital Sign Value Performing Clinician Facility 07-11-2024 11:32-0400 Body temperature 98.2 [degF] Evans Burdick MD Work Phone: [facility] 07-11-2024 11:32-0400 Body weight 150.87 kg Evans Burdick MD Work Phone: [facility] 07-11-2024 11:32-0400 Diastolic blood pressure 76 mm[Hg] Evans Burdick MD Work Phone: [facility] 07-11-2024 11:32-0400 Heart rate 59 /min Evans Burdick MD Work Phone: [facility] 07-11-2024 11:32-0400 Respiratory rate 20 /min Evans Burdick MD Work Phone: [facility] 07-11-2024 11:32-0400 SaO2% (BldA) [Mass fraction] 91 % Evans Burdick MD Work Phone: [facility] Comment on above: Checked multiple fingers 07-11-2024 11:32-0400 Systolic blood pressure 121 mm[Hg] Evans Burdick MD Work Phone: [facility] 10-28-2023 11:53-0400 Diastolic Blood Pressure Non-Invasive 76 mm[Hg] DR ROMAINE CARR DO [facility] 10-28-2023 11:53-0400 Heart rate 60 /min DR ROMAINE CARR DO [facility] 10-28-2023 11:53-0400 Respiratory rate 16 /min DR ROMAINE CARR DO [facility] 10-28-2023 11:53-0400 Systolic Blood Pressure Non-Invasive 112 mm[Hg] DR ROMAINE CARR DO [facility] 10-28-2023 11:46-0400 Body weight 155.[address] ROMAINE CARR DO [facility] 10-28-2023 10:29-0400 Diastolic Blood Pressure Non-Invasive 77 mm[Hg] DR ROMAINE CARR DO [facility] 10-28-2023 10:29-0400 Heart rate 67 /min DR ROMAINE CARR DO [facility] 10-28-2023 10:29-0400 Respiratory rate 16 /min DR ROMAINE CARR DO [facility] 10-28-2023 10:29-0400 Systolic Blood Pressure Non-Invasive 132 mm[Hg] DR ROMAINE CARR DO [facility] 10-28-2023 09:42-[address] ROMAIEN CARR DO [facility] 10-28-2023 09:42-[address] ROMAINE CARR DO [facility] 10-28-2023 09:42-0400 Body temperature 98.24 [degF] DR ROMAINE CARR DO [facility] 10-28-2023 09:42-0400 Diastolic Blood Pressure Non-Invasive 74 mm[Hg] DR ROMAINE CARR DO [facility] 10-28-2023 09:42-0400 Heart rate 65 /min DR ROMAINE CARR DO [facility] 10-28-2023 09:42-0400 Respiratory rate 18 /min DR ROMAINE CARR DO [facility] 10-28-2023 09:42-0400 Systolic Blood Pressure Non-Invasive 109 mm[Hg] DR ROMAINE CARR DO [facility] 06-29-2022 12:55-0400 Diastolic Blood Pressure Non-Invasive [address] BYRON DÍAZ MD [facility] 06-29-2022 12:55-0400 Heart rate 68 /min DR BYRON DÍAZ MD [facility] 06-29-2022 12:55-0400 Respiratory rate 18 /min DR BYRON DÍAZ MD [facility] 06-29-2022 12:55-0400 Systolic Blood Pressure Non-Invasive [address] BYRON DÍAZ MD [facility] 06-29-2022 11:24-0400 Body temperature 96.62 [degF] DR BYRON DÍAZ MD [facility] 06-29-2022 11:24-0400 Diastolic Blood Pressure Non-Invasive [address] BYRON DÍAZ MD [facility] 06-29-2022 11:24-0400 Heart rate 66 /min DR BYRON DÍAZ MD [facility] 06-29-2022 11:24-0400 Respiratory rate 23 /min DR BYRON DÍAZ MD [facility] 06-29-2022 11:24-0400 Systolic Blood Pressure Non-Invasive [address] BYRON DÍAZ MD [facility] 11-21-2021 16:49-0400 Diastolic blood pressure 65 mm[Hg] PHIL SMITH MD [facility] 11-21-2021 16:49-0400 Heart rate 60 /min PHIL SMITH MD [facility] 11-21-2021 16:49-0400 Respiratory rate 18 /min PHIL SMITH MD [facility] 11-21-2021 16:49-0400 Systolic blood pressure 112 mm[Hg] PHIL SMITH MD [facility] 11-21-2021 15:18-0400 Body temperature 98.24 [degF] PHIL SMITH MD [facility] 11-21-2021 15:18-0400 Body weight 127 kg PHIL SMITH MD [facility] 11-21-2021 15:18-0400 Diastolic blood pressure 73 mm[Hg] PHIL SMITH MD [facility] 11-21-2021 15:18-0400 Heart rate 62 /min PHIL SMITH MD [facility] 11-21-2021 15:18-0400 Respiratory rate 20 /min PHIL SMITH MD [facility] 11-21-2021 15:18-0400 Systolic blood pressure 108 mm[Hg] PHIL SMITH MD [facility] 03-15-2021 10:06-0500 Body temperature 96.62 [degF] DR NENA HENSLEY MD [facility] 03-15-2021 10:06-0500 Diastolic Blood Pressure NBP [address] NENA HENSLEY MD [facility] 03-15-2021 10:06-0500 Heart rate 68 /min DR NENA HENSLEY MD [facility] 03-15-2021 10:06-0500 Reason For Taking VItal Signs DR NENA HENSLEY MD [facility] 03-15-2021 10:06-0500 Respiratory rate 16 /min DR NENA HENSLEY MD [facility] 03-15-2021 10:06-0500 Systolic Blood Pressure NBP [address] NENA HENSLEY MD [facility] 03-15-2021 09:58-0500 Body temperature 97.16 [degF] DR NENA HENSLEY MD [facility] 03-15-2021 09:58-0500 Diastolic Blood Pressure NBP [address] NENA HENSLEY MD [facility] 03-15-2021 09:58-0500 Heart rate 77 /min DR NENA HENSLEY MD [facility] 03-15-2021 09:58-0500 Mean blood pressure 75 mm[Hg] DR NENA HENSLEY MD [facility] 03-15-2021 09:58-0500 Respiratory rate 16 /min DR NENA HENSLEY MD [facility] 03-15-2021 09:58-0500 Systolic Blood Pressure NBP [address] NENA HENSLEY MD [facility] 03-15-2021 09:43-0500 Body temperature 96.8 [degF] DR NENA HENSLEY MD [facility] 03-15-2021 09:43-0500 Diastolic Blood Pressure NBP [address] NENA HENSLEY MD [facility] 03-15-2021 09:43-0500 Heart rate 78 /min DR NENA HENSLEY MD [facility] 03-15-2021 09:43-0500 Mean blood pressure 69 mm[Hg] DR NENA HENSLEY MD [facility] 03-15-2021 09:43-0500 Respiratory rate 16 /min DR NENA HENSLEY MD [facility] 03-15-2021 09:43-0500 Systolic Blood Pressure NBP [address] NENA HENSLEY MD [facility] 03-15-2021 09:35-0500 Heart rate 81 /min DR NENA HENSLEY MD [facility] 03-15-2021 09:15-0500 Body temperature 96.8 [degF] DR NENA HENSLEY MD [facility] 03-15-2021 09:06-0500 Body temperature 96.8 [degF] DR NENA HENSLEY MD [facility] 03-15-2021 07:35-0500 Body height 154.[address] NENA HENSLEY MD [facility] 03-15-2021 07:35-0500 Body weight 123.[address] NENA HENSLEY MD [facility] 03-15-2021 07:35-0500 Diastolic blood pressure 70 mm[Hg] DR NENA HENSLEY MD [facility] 03-15-2021 07:35-0500 Heart rate 65 /min DR NENA HENSLEY MD [facility] 03-15-2021 07:35-0500 Systolic blood pressure 103 mm[Hg] DR NENA HENSLEY MD [facility] 03-04-2021 09:05-0500 Body height [address] NENA HENSLEY MD [facility] 03-04-2021 09:05-0500 Body temperature 97.52 [degF] DR NENA HENSLEY MD [facility] 03-04-2021 09:05-0500 Body weight [address] NENA HENSLEY MD [facility] 03-04-2021 09:05-0500 diastolic 77 mm[Hg] DR NENA HENSLEY MD [facility] 03-04-2021 09:05-0500 Heart rate 77 /min DR NENA HENSLEY MD [facility] 03-04-2021 09:05-0500 systolic 113 mm[Hg] DR NENA HENSLEY MD [facility] Encounters Encounter Date Encounter Type Care Provider Facility Start: 12-05-2024 ambulatory Jose Friend Facility :[facility] Start: 11-22-2024 ambulatory BERNA MICHEL MD Faci lity:[facility] Start: 10-13-2024 End: 10-13-2024 Patient encounter procedure Peace [facility] Work Phone: Start: 10-13-2024 End: 10-13-[address] Berna Michel MD Work Phone: -[facility] Start: 10-03-2024 End: 10-03-2024 ambulatory BERNA MICHEL MD Facility:[facility] Start: 10-03-2024 End: 10-03-2024 Patient encounter procedure BERNA MICHEL MD [facility] Start: 09-12-2024 End: 09-12-2024 Emergency department patient visit DR MARY CARMEN PARDO MD [facility] Start: 08-08-2024 End: 10-07-2024 ambulatory BERNA MICHEL MD Facility:[facility] Start: 08-08-2024 End: 10-07-2024 Physical therapy management BERNA MICHEL MD [facility] Start: 08-05-2024 End: 08-05-2024 ambulatory BERNA MICHEL MD Facility:[facility] Start: 08-05-2024 End: 08-05-2024 Patient encounter procedure BERNA MICHEL MD [facility] Start: 07-11-2024 End: 07-11-2024 Emergency department patient visit PHIL SMITH MD Facility:[facility] Start: 07-11-2024 End: 07-11-2024 Office outpatient visit 15 minutes Evans Burdick MD Work Phone: [facility] Comment on above: Abdominal pain, left lower quadrant (Primary Dx); History of diverticulosis; MUNOZ (dyspnea on exertion); Hypoxia Start: 07-11-2024 End: 07-11-2024 ambulatory BERNA MICHEL Facility:[id number] Start: 02-17-2024 End: 02-17-2024 ambulatory BERNA MICHEL MD Facility:[facility] Start: 02-17-2024 End: 02-17-2024 Patient encounter procedure BERNA MICHEL MD [facility] Start: 11-27-2023 End: 11-27-2023 ambulatory BERNA MICHEL MD Facility:[facility] Start: 11-27-2023 End: 11-27-2023 Patient encounter procedure BERNA MICHEL MD [facility] Start: 11-24-2023 End: 11-24-2023 ambulatory BERNA MICHEL MD Facility:[facility] Start: 11-10-2023 End: 11-10-2023 ambulatory BERNA MICHEL MD Facility:[facility] Start: 10-28-2023 End: 10-28-2023 Emergency department patient visit DR ROMAINE CARR DO [facility] Start: 10-28-2023 ambulatory BERNA MICHEL MD Faci lity:[facility] Start: 10-27-2023 End: 10-27-2023 ambulatory BERNA MICHEL MD Facility:[facility] Start: 12-22-2022 End: 12-26-2022 ambulatory BERNA MICHEL MD Facility:[facility] Start: 12-22-2022 End: 12-26-2022 Outreach Lab BERNA MICHEL MD [facility] Start: 06-29-2022 End: 06-29-2022 Emergency department patient visit DR BYRON DÍAZ MD [facility] Start: 11-21-2021 End: 11-21-2021 Emergency department patient visit PHIL SMITH MD [facility] Start: 03-15-2021 End: 03-15-[address] NENA HENSLEY MD [facility] Start: 03-04-2021 End: 03-04-[address] NENA HENSLEY MD [facility] Procedures Date Procedure Procedure Detail Performing Clinician Start: 04-13-2019 Entire nasal sinus ( body structure) DR NENA HENSLEY MD Comment on above: ballooning Cholecystectomy DR PAULO HENSLEY MD Colonoscopy DR NENA ENGLE MD Comment on above: x2 Decompression of med sonia nerve DR NENA HENSLEY MD Comment on above: bilateral Septoplasty/submucou s resecj w/wo cartilage grf DR NENA HENSLEY MD Plan of Treatment Date Care Activity Detail Author Start: 07-08-2027 Screening for malign ant neoplasm of colon [facility] Start: 12-13-2023 Covid-19 Vaccine ( season) Covid-19 Vaccine ( season) [facility] Start: 12-13-2023 Influenza vaccination Influenza Vacc ine (#1) [facility] Start: 11-17-2019 Diabetes Screening Diabetes Screenin g [facility] Start: 11-17-2019 Lipid panel Lipid Screening [facility] Start: 11-17-2019 Screening for malign ant neoplasm of colon [facility] Start: 2014 Screening for malign ant neoplasm of breast Mammogram Screening [facility] Start: 10-24-2011 Urine microalbumin profile DTa P,Tdap,Td Vaccine (1 - Tdap) [facility] Start: 11-17-1995 Screening for malign ant neoplasm of cervix Cervical Cancer Screening [facility] Start: 1993 Hepatitis B Vaccine (1 of 3 - 19+ 3-dose series) Hepatitis B Vaccine (1 of 3 - 19+ 3-dose series) [facility] Start: 1992 Anxiety Screening Anxiety Screening [facility] Start: 1992 Depression Screening Depression Scre ening [facility] Start: 1992 Hepatitis C screening Hepatitis C Sc carline [facility] Start: 1992 HIV screening HIV Screening [facility] Immunizations Immunization Date Immunization Notes Care Provider Fa cierrajaylene 08-21-2020 SARS-CoV-2 (COVID-19 ) Ad26 vaccine, recombinant DR NENA HENSLEY MD [facility] 12-08-2016 influenza virus vaccine, unspecified formulation DR NENA HENSLEY MD [facility] 01-11-2015 influenza virus vaccine, unspecified formulation DR NENA HENSLEY MD [facility] 10-23-2011 tetanus and diphther ia toxoids, adsorbed, preservative free, for adult use (5 Lf of tetanus toxoid and 2 Lf of diphtheria toxoid) DR NENA HENSLEY MD [facility] Payers Date Payer Category Payer Self-pay 2024 Unknown [id number] 2024 Private Health Insurance [id number] 2024 [facility] BLUE CARD PPO OOS [id number] 2024 Unknown [id number] 2024 Unknown [id number] 2023 Unknown [id number] 2023 Private Health Insurance [id number] 2022 Unknown [id number] 1974 Unknown [id number] 2.16.840.1.173816.3.579.2. 1974 Unknown [id number] 2.16.840.1.231347.3.579.2. 1974 Unknown [id number] 2.16.840.1.457705.3.579.2. 1974 Unknown [id number] 2.16.840.1.262115.3.579.2. 1974 Unknown [id number] 2.16.840.1.304386.3.579.2. 1974 Unknown 2012 .16.840.1.126295.3.579.2. 1974 Unknown [id number] 2.16.840.1.207072.3.579.2. 1974 Unknown [id number] 2.16.840.1.450046.3.579.2. 1974 Unknown [id number] .16.840.1.161139.3.579.2. 1974 Unknown [id number] 2.16.840.1.529242.3.579.2. 1974 Unknown [id number] .16.840.1.961608.3.579.2. 1974 Unknown [id number] .16.840.1.439495.3.579.2. 1974 Unknown [id number] 2.16.840.1.510977.3.579.2. 1974 Unknown [id number] 2.16.840.1.293038.3.579.2. 627 1974 Unknown [id number] 2.16.840.1.594796.3.579.2. 627 1974 Unknown [id number] 2.16.840.1.924841.3.579.2. 627 Unknown [id number] Unknown [id number] 2.16.840.1.291721.3.579.2. 462 Unknown [id number] 2.16.840.1.941208.3.579.2. 462 Social History Date Type Detail Facility Start: 11-26-2018 End: 10-04-2024 Never smoked tobacco (finding) [facility] Start: 1975 Sex Assigned At Female A [facility] Start: 09-01-2022 Tobacco use and exposure Smoke less tobacco non-user [facility] Start: 07-11-2024 Alcoholic beverage intake Ex-drinker (finding) [facility] Start: 09-01-2022 End: 07-11-2024 History of Social function [facility] Start: 09-01-2022 End: 07-11-2024 Tobacco use panel [facility] Adult Depression Screening Assessment 1 [facility] Start: 07-11-2024 Alcohol Comment very rare [facility] Start: 1975 Sex assigned at Not on file [facility] Sexual Orientation [facility] Start: 10-06-2018 Sex Female (finding) [facility] Tobacco smoking stat [facility] Unknown if ever smoked [facility] Work Phone: Functional Status Date Assessment Result Facility 10-28-2023 Functional Status Independent [facility] 10-28-2023 Functional Status Standard Safet y ID band on, Call device within reach, Bed in low position [facility] 06-29-2022 Functional Status Independent [facility] 06-29-2022 Functional Status Standard Safet y ID band on, Call device within reach, Bed in low position, Wheels locked, Safety level maintained [facility] 11-21-2021 Functional Status Standard Safet y ID band on, Call device within reach, Bed in low position, Wheels locked, Upper/Half-Length side-rails up, Bedside Cart Locked, Safety level maintained [facility] Mental Status Date Assessment Result Facility 10-28-2023 Mental Status Orientation Oriented x 4 [facility] 06-29-2022 Mental Status Orientation Oriented x 4 [facility] 11-21-2021 Mental Status Orientation Oriented x 4 [facility] Clinical Notes 03-15-2021 to 09-12-2024 Note Date & Type Note Facility 09-12-2024 Hospital Discharge instructions Patient Education 09/12/2024 14:51:30 Abdominal Pain Abdominal Pain Abdominal pain is pain in the stomach or belly area. Everyone has this pain from time to time. In many cases it goes away on its own. But abdominal pain can sometimes be due to a serious problem, such as appendicitis. So it s important to know when to get help. Causes of abdominal pain There are many possible causes of abdominal pain. Common causes in adults include: Constipation, diarrhea, or gas Stomach acid flowing back up into the esophagus (acid reflux or heartburn) Severe acid reflux, called GERD (gastroesophageal reflux disease) A sore in the lining of the stomach or small intestine (peptic ulcer) Inflammation of the gallbladder, liver, or pancreas Gallstones or kidney stones Appendicitis Intestinal blockage An internal organ pushing through a muscle or other tissue (hernia) Urinary tract infections In women, menstrual cramps, fibroids, ovarian cysts, pelvic inflammatory disease, or endometriosis Inflammation or infection of the intestines, including Crohn's disease and ulcerative colitis Irritable bowel syndrome Diagnosing the cause of abdominal pain Your healthcare provider will give you a physical exam help find the cause of your pain. If needed, you will have tests. Belly pain has many possible causes. So it can be hard to find the reason for your pain. Giving details about your pain can help. Tell your provider where and when you feel the pain, and what makes it better or worse. Also let your provider know if you have other symptoms such as: Fever Tiredness Upset stomach (nausea) Vomiting Changes in bathroom habits Blood in the stool or black, tarry stool Weight loss that you can't explain (involuntary weight loss?) Also report any family history of stomach or intestinal problems, or cancers. Tell your provider about all your alcohol use and drug use. Tell your provider about all medicines you use, including herbs, vitamins, and supplements. Treating abdominal pain Some causes of pain need emergency medical treatment right away. These include appendicitis or a bowel blockage. Other problems can be treated with rest, fluids, or medicines. Your healthcare provider can give you specific instructions for treatment or self-care based on what is causing your pain. If you have vomiting or diarrhea, sip water or other clear fluids. When you are ready to eat solid foods again, start with small amounts of xona-gd-ujxgpc, low-fat foods. These include apple sauce, toast, or crackers. When to get medical care Call 911 or go to the hospital right away if you: Can t pass stool and are vomiting Are vomiting blood or have bloody diarrhea or black, tarry diarrhea Have chest, neck, or shoulder pain Feel like you might pass out Have pain in your shoulder blades with nausea Have sudden, severe belly pain Have new, severe pain unlike any you have felt before Have a belly that is rigid, hard, and hurts to touch Call your healthcare provider if you have: Pain for more than 5 days Bloating for more than 2 days Diarrhea for more than 5 days A fever of 100.4 F (38 C) or higher, or as directed by your healthcare provider Pain that gets worse Weight loss for no reason Continued lack of appetite Blood in your stool How to prevent abdominal pain Here are some tips to help prevent abdominal pain: Eat smaller amounts of food at each meal. Don't eat greasy, fried, or other high-fat foods. Don't eat foods that give you gas. Exercise regularly. Drink plenty of fluids. To help prevent GERD symptoms: Quit smoking. Reduce alcohol and foods that increase stomach acid. Don't use aspirin or mrkc-fpl-clwuydd pain and fever medicines, if possible. This includes nonsteroidal anti-inflammatory drugs (NSAIDs). Lose excess weight. Finish eating at least 2 hours before you go to bed or lie down. Raise the head of your bed. [id number] [employer]. [address] [place] [address], [place] [address]. All rights reserved. This information is not intended as a substitute for professional medical care. Always follow your healthcare professional's instructions. Follow Up Care 09/12/2024 13:26:52 With:BERNA MICHEL MD Address: [place] [address]- When:2-[address] [facility] 09-12-2024 Emergency department Discharge summary Discharge Instructions Thank you for allowing [facility] to assist you with your healthcare needs. The following is important discharge information regarding your hospital visit. Diagnosis from Today's Visit Abdominal pain What to Do Next Instructions from Your Care Team No qualifying data available. Post Acute Orders No qualifying data available. You Need to Schedule the Following Appointments Follow Up with BERNA MICHEL MD When:Within 2-4 days Where:[address] [place], [place] [id number]- Allergies Bactrim Blisters propofol Anxiety sulfa drugs Medications Please ask your primary doctor or pharmacist before taking any other medication not listed, including over the counter drugs, herbal medications, vitamins and or supplements as they may interact with your home medications. What How Much When Why Instructions Last Dose New ondansetron (ondansetron 4 mg oral tablet) 1 tab(s) by mouth Every 6 hours as needed for Nausea/Vomiting Printed Prescription Unchanged albuterol (albuterol 2.5 mg/ 3 mL (0.083%) inhalation solution) 3 Milliliter by inhalation Every 6 hours as needed for as needed for wheezing Benign essential hypertension Unchanged cholecalciferol-menaquinone (K2-D3 5000 125 mcg (5000 intl units)-90 mcg oral capsule) 1 cap by mouth Once a day with a meal Unchanged clonazePAM (clonazePAM 1 mg oral tablet) 1 tab(s) by mouth Four (4) times a day Anxiety Duration: 90 Days Unchanged dicyclomine (dicyclomine 20 mg oral tablet) 1 tab(s) by mouth Three (3) times a day Benign essential hypertension Acute sinusitis Duration: 30 Days Unchanged escitalopram (escitalopram 20 mg oral tablet) 1 tab(s) by mouth Every day Depression, major, recurrent, in remission Unchanged ferrous gluconate (ferrous gluconate 324 mg (38 mg elemental iron) oral tablet) 1 tab(s) by mouth Two (2) times a day Chronic sinusitis Iron deficiency anemia Duration: 90 Days Unchanged hydroxychloroquine (hydroxychloroquine 200 mg oral tablet) 1 tab(s) by mouth Two (2) times a day Unchanged metoprolol (metoprolol tartrate 25 mg oral tablet) 1 tab(s) by mouth Two (2) times a day Unchanged pantoprazole (pantoprazole 40 mg oral enteric coated tablet) 1 tab(s) by mouth Two (2) times a day Duration: 90 Days Please take this list to your next doctor s visit. Bring all medications you take, including over the counter medications, herbals and other supplements with you to your doctor s visit. Patients and families are reminded to discard old lists and to update any records with all medication providers or retail pharmacies. Education Materials Abdominal Pain Abdominal pain is pain in the stomach or belly area. Everyone has this pain from time to time. In many cases it goes away on its own. But abdominal pain can sometimes be due to a serious problem, such as appendicitis. So it s important to know when to get help. Causes of abdominal pain There are many possible causes of abdominal pain. Common causes in adults include: Constipation, diarrhea, or gas Stomach acid flowing back up into the esophagus (acid reflux or heartburn) Severe acid reflux, called GERD (gastroesophageal reflux disease) A sore in the lining of the stomach or small intestine (peptic ulcer) Inflammation of the gallbladder, liver, or pancreas Gallstones or kidney stones Appendicitis Intestinal blockage An internal organ pushing through a muscle or other tissue (hernia) Urinary tract infections In women, menstrual cramps, fibroids, ovarian cysts, pelvic inflammatory disease, or endometriosis Inflammation or infection of the intestines, including Crohn's disease and ulcerative colitis Irritable bowel syndrome Diagnosing the cause of abdominal pain Your healthcare provider will give you a physical exam help find the cause of your pain. If needed, you will have tests. Belly pain has many possible causes. So it can be hard to find the reason for your pain. Giving details about your pain can help. Tell your provider where and when you feel the pain, and what makes it better or worse. Also let your provider know if you have other symptoms such as: Fever Tiredness Upset stomach (nausea) Vomiting Changes in bathroom habits Blood in the stool or black, tarry stool Weight loss that you can't explain (involuntary weight loss?) Also report any family history of stomach or intestinal problems, or cancers. Tell your provider about all your alcohol use and drug use. Tell your provider about all medicines you use, including herbs, vitamins, and supplements. Treating abdominal pain Some causes of pain need emergency medical treatment right away. These include appendicitis or a bowel blockage. Other problems can be treated with rest, fluids, or medicines. Your healthcare provider can give you specific instructions for treatment or self-care based on what is causing your pain. If you have vomiting or diarrhea, sip water or other clear fluids. When you are ready to eat solid foods again, start with small amounts of lljv-ql-mfumml, low-fat foods. These include apple sauce, toast, or crackers. When to get medical care Call 911 or go to the hospital right away if you: Can t pass stool and are vomiting Are vomiting blood or have bloody diarrhea or black, tarry diarrhea Have chest, neck, or shoulder pain Feel like you might pass out Have pain in your shoulder blades with nausea Have sudden, severe belly pain Have new, severe pain unlike any you have felt before Have a belly that is rigid, hard, and hurts to touch Call your healthcare provider if you have: Pain for more than 5 days Bloating for more than 2 days Diarrhea for more than 5 days A fever of 100.4 F (38 C) or higher, or as directed by your healthcare provider Pain that gets worse Weight loss for no reason Continued lack of appetite Blood in your stool How to prevent abdominal pain Here are some tips to help prevent abdominal pain: Eat smaller amounts of food at each meal. Don't eat greasy, fried, or other high-fat foods. Don't eat foods that give you gas. Exercise regularly. Drink plenty of fluids. To help prevent GERD symptoms: Quit smoking. Reduce alcohol and foods that increase stomach acid. Don't use aspirin or fhcp-ubw-lkxwmbi pain and fever medicines, if possible. This includes nonsteroidal anti-inflammatory drugs (NSAIDs). Lose excess weight. Finish eating at least 2 hours before you go to bed or lie down. Raise the head of your bed. [phone] [employer]. [address] [place] [address], [place] [address]. All rights reserved. This information is not intended as a substitute for professional medical care. Always follow your healthcare professional's instructions. Additional Information VACCINATE! IT SAVES LIVES! Members of the community who have not yet received the COVID-19 vaccine and would like to receive it can visit one of [facility] vaccine clinics. There are many vaccine clinic locations within the [facility]. For locations and available times, please visit [email or web address].[email or web address] [email or web address] It is important to note that some COVID mobile vaccine clinics are held outdoors and may be canceled in rainy or stormy conditions. To learn more about pediatric vaccinations (ages 5-11), we invite you to visit the [employer] webpage. https://www.[email or web address]/pag es/0627-Spxdr-Twmuuhrviye-Frequent fb-Pocdg-Ivihqvqbf.html To learn more about the COVID-19 vaccine, we invite you to visit the CDC website for a list of frequently asked questions. https://www.cdc.gov/coronavirus/-ncov/vaccines/faq.html [facility] Patient Portal Access Instructions: Stay connected with your healthcare team and access your personal medical information anytime with the [facility] Patient Portal. If you would like a full copy of your medical records please contact the [facility] Medical Records Department Thursday through Thursday between 8a.m. and 4:30p.m. Please follow the directions below to access the portal: 1.Access the email account you provided upon registration to the hospital.2.Look for an invitation email from [facility].3.Open the email and access the invitation link: Accept Invitation to [facility]4.Fill in the required de la garza to create your account. Sign into www.[email or web address] with your username and password that you created in the above steps to stay up to date. You can then view a summary of results, a summary of your visits, and the ability to download your summaries to your computer or send the information securely to a physician. Remember that your healthcare information is confidential, so carefully consider who you will allow to register on the [facility] Patient Portal for access to your information. You can also access the [employer] Patient Portal on the [employer] maira. Simply click on Health Records under Health Data and then click on the [employer] logo. HOW TO SAFELY DISPOSE OF PRESCRIPTION MEDICATIONS Please use one of the following methods to safely dispose of your unused medications. 1.Use a drug disposal kit: the drug disposal pouch allows you to safely discard your old and unused drugs. Ask your nurse to give you one when you are discharged.2.Visit a local take-back location: Many local pharmacies and police departments have programs that collect old and unwanted prescription drugs. Call your local pharmacy or go to http://[employer].Airbnb/8A7Wy5n to find one close to you.3.Make use of household items: Use cat litter or old coffee grounds to dispose medications if other options are not available. Mix your drugs with these household products, seal them in an airtight container and throw it into the garbage. Call [facility]: [phone] to be sure your drugs can be disposed of in this way. Some medicines may require a different approach.4.Never flush your medications down the toilet. IF YOU HAVE BEEN PRESCRIBED AN OPIOIDS FOR PAIN If you have been prescribed an opioid (such as hydrocodone, oxycodone or morphine), it is critical to understand the possible side effects and risks of opioid pain medications. Even when taken as directed, opioids can have several side effects including: Tolerance, meaning you might need to take more of a medication for the same pain relief. Nausea, vomiting and/or constipation. Sleepiness, dizziness, dry mouth, confusion, depression or itching. Physical dependence, meaning you have withdrawal symptoms when a medication is stopped ? this can develop within a few days. KNOW YOUR RESPONSIBILITIES It is important to know exactly how much and how often to take the opioid pain medications you are prescribed. Never take opioids in higher amounts or more often than prescribed. Do not combine opioids with alcohol or other drugs that cause drowsiness, such as benzodiazepines, also known as benzos, including diazepam and alprazolam, muscle relaxants or sleep aids. Never sell or share prescription opioids. This is illegal. Store opioids in a secure place and out of reach of others (including children, family, friends and visitors). The last page(s) of this document has been signed and retained as a CHART COPY Signatures Patient Education Materials Abdominal Pain Medication Leaflets My discharge plan and instructions have been reviewed and explained to me and I,RAIN MURPHY understand my current condition and have read and understand these discharge instructions. I have received a written copy of the plan/instructions. If I have questions, I am aware that I should contact my doctor. 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 09-12-2024 Note Exam Date Time Procedure Performing Provider Status 09/12/24 2:[address] Abd/Pelvis w/ IV Contrast Only GRACE RIVERO MD; Auth (Verified) [id number] ORIGINAL EXAMINATION: CT OF THE ABDOMEN AND PELVIS WITH CONTRAST 09/12/2024 2:30 pm TECHNIQUE: CT of the abdomen and pelvis was performed with the administration of intravenous contrast. Multiplanar reformatted images are provided for review. Automated exposure control, iterative reconstruction, and/or weight based adjustment of the mA/kV was utilized to reduce the radiation dose to as low as reasonably achievable. COMPARISON: July 11, 2024 HISTORY: ORDERING SYSTEM PROVIDED HISTORY: Reason for Exam: N/V/D X3 DAYS. LT SIDED ABD PAIN. pain FINDINGS: Degenerative changes are noted in the spine. No other osseous abnormality identified the lung bases are unremarkable. Liver, spleen, adrenal glands and pancreas are unremarkable. Cholecystectomy clips are evident. No kidney abnormality seen. Borderline hector hepatis lymph nodes are evident, similar to the prior exam and presumably reactive or hyperplastic. No adenopathy, free air or free fluid seen. The solid pelvic organs and urinary bladder are grossly normal. Mild sigmoid and left colon diverticulosis is evident without diverticulitis. No other GI tract abnormality seen. No additional contributory finding. IMPRESSION: No acute abnormality identified on this exam. Mild diverticulosis without diverticulitis. Interpreted by: Grace Rivero MD Preliminary Report By: Grace Rivero MD Electronically signed By Grace Rivero MD Dictated Date: 09/12/2024 2:32:51 PM Prelim Date: 09/12/2024 2:36:04 PM Sign Date: 09/12/2024 2:36:04 PM Ordering Provider: ROSA EPSTEIN [facility]03-31-2025 NoteHNO ID: [id number] Author: EVANS BURDICK MD Service: ? Author Type: Physician Type: Progress Notes Filed: 07/11/2024 12:29 Note Text: [facility] NORBERT Murphy is a 48 year old female. Patient presents with: Abdominal Pain: Left side abdominal pain constant throbbing x 1 week (intermittent) Emesis and Diarrhea x 3 days (intermittently) Nausea x 3 days Left-sided abdominal cramping began about 1 week ago and then improved. Symptoms worsened again 2 days ago. Pain is crampy primarily in the left flank. She has associated nausea, vomiting, and diarrhea. She has had blood in her stool which she attributes to hemorrhoids. She has chills but no fever. She suspects this is diverticulitis which she has had in the past. She denies any recent travel or sick contacts. No recent antibiotic use. She denies chest pain, cough, or feeling lightheaded. Denies urinary frequency, urgency, or hematuria. 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 Prior colon evaluations have shown diverticulitis, diverticulosis, a touch of colitis, and colon polyp. Review of Systems Objective BP 121/76 Pulse (!) 59 Temp 36.8 ?C (98.2 ?F) (Temporal) Resp 20 Wt (!) 150.9 kg (332 lb 9.6 oz) LMP (Approximate) SpO2 91% Physical Exam Constitutional: General: She is not in acute distress. Appearance: She is obese. She is not diaphoretic. HENT: Mouth/Throat: Mouth: Mucous membranes are moist. Pharynx: No oropharyngeal exudate or posterior oropharyngeal erythema. Eyes: Extraocular Movements: Extraocular movements intact. Conjunctiva/sclera: Conjunctivae normal. Pupils: Pupils are equal, round, and reactive to light. Cardiovascular: Rate and Rhythm: Regular rhythm. Bradycardia present. Heart sounds: No murmur heard. Pulmonary: Effort: No respiratory distress. Breath sounds: Rhonchi present. No wheezing. Abdominal: Palpations: Abdomen is soft. There is no mass. Tenderness: There is no abdominal tenderness. There is no right CVA tenderness or left CVA tenderness. Comments: Limited by body habitus Musculoskeletal: Cervical back: Neck supple. No tenderness. {ASSESSMENT/PLAN: 1. Abdominal pain, left lower quadrant - ICD9: 789.04, ICD10: R10.32 (primary diagnosis) 2. History of diverticulosis - ICD9: V12.79, ICD10: Z87.19 Differential includes diverticulitis, infectious gastroenteritis, colitis. Further evaluation with imaging recommended to confirm diagnosis and guide treatment. She generally has her care at [facility] and will go to the ER therefore further evaluation. 3. MUNOZ (dyspnea on exertion) - ICD9: 786.09, ICD10: R06.09 4. Hypoxia - ICD9: 799.02, ICD10: R09.02 Pulse ox confirmed ranging between 91-93 at rest. She denies any past history of hypoxia or asthma. Low suspicion for pneumonia without cough or cold symptoms. Further evaluation for CHF at the ER. Evans Burdick MD History and Record Review Systemic symptoms present included: Chills Differential Diagnoses - Diverticulitis - Infectious gastroenteritis - Hypoxia and abnormal breath sounds; rule out CHF Disposition The patient was other (comment) (Referred to [facility] ER). [facility]03-31-2025 History of Present illness Narrative* Evans Burdick MD - 07/11/2024 11:43 AM EDT [facility] [facility] Gisel Murphy is a 48 year old female. Patient presents with: Abdominal Pain: Left side abdominal pain constant throbbing x 1 week (intermittent) Emesis and Diarrhea x 3 days (intermittently) Nausea x 3 days Left-sided abdominal cramping began about 1 week ago and then improved. Symptoms worsened again 2 days ago. Pain is crampy primarily in the left flank. She has associated nausea, vomiting, and diarrhea. She has had blood in her stool which she attributes to hemorrhoids. She has chills but no fever.She suspects this is diverticulitis which she has had in the past. She denies any recent travel or s k contacts. No recent antibiotic use. She denies chest pain, cough, or feeling lightheaded. Denies urinary frequency, urgency, or hematuria. 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 Prior colon evaluations have shown diverticulitis, diverticulosis, a touch of colitis, and colon polyp. Review of Systems Objective BP 121/76 Pulse (!) 59 Temp 36.8 C (98.2 F) (Temporal) Resp 20 Wt (!) 150.9 kg (332 lb 9.6 oz) LMP (Approximate) SpO2 91% Physical Exam Constitutional: General: She is not in acute distress. Appearance: She is obese. She is not diaphoretic. HENT: Mouth/Throat: Mouth: Mucous membranes are moist. Pharynx: No oropharyngeal exudate or posterior oropharyngeal erythema. Eyes: Extraocular Movements: Extraocular movements intact. Conjunctiva/sclera: Conjunctivae normal. Pupils: Pupils are equal, round, and reactive to light. Cardiovascular: Rate and Rhythm: Regular rhythm. Bradycardia present. Heart sounds: No murmur heard. Pulmonary: Effort: No respiratory distress. Breath sounds: Rhonchi present. No wheezing. Abdominal: Palpations: Abdomen is soft. There is no mass. Tenderness: There is no abdominal tenderness. There is no right CVA tenderness or left CVA tenderness. Comments: Limited by body habitus Musculoskeletal: Cervical back: Neck supple. No tenderness. {ASSESSMENT/PLAN: 1. Abdominal pain, left lower quadrant - ICD9: 789.04, ICD10: R10.32 (primary diagnosis) 2. History of diverticulosis - ICD9: V12.79, ICD10: Z87.19 Differential includes diverticulitis, infectious gastroenteritis, colitis. Further evaluation with imaging recommended to confirm diagnosis and guide treatment. She generally has her care at [facility] and will go to the ER therefore further evaluation. 3. MUNOZ (dyspnea on exertion) - ICD9: 786.09, ICD10: R06.09 4. Hypoxia - ICD9: 799.02, ICD10: R09.02 Pulse ox confirmed ranging between 91-93 at rest. She denies any past history of hypoxia or asthma.Low suspicion for pneumonia without cough or cold symptoms. Further evaluation for CHF at the ER. Evans Burdick MD History and Record Review Systemic symptoms present included: Chills Differential Diagnoses - Diverticulitis - Infectious gastroenteritis - Hypoxia and abnormal breath sounds; rule out CHF Disposition The patient was other (comment) (Referred to [facility] ER). [facility] Exam Date Time Procedure Performing Provider Status 11/27/23 2:59 PM Echocardiogram, Adult - CV Auth (Verified) [facility] 07-17-2024 Evaluation + Plan note Future Scheduled Tests Radiology* CT Angiography Chest w/ Contrast 10/28/23 [facility] 07-17-2024 Hospital Discharge instructions Patient Education 10/28/2023 11:04:24 Shortness of Breath (Dyspnea) Shortness of Breath (Dyspnea) Shortness of breath is the feeling that you can't catch your breath or get enough air. It is also known as dyspnea. Dyspnea can be caused by many different conditions. They include: Acute asthma attack Worsening of chronic lung diseases such as chronic bronchitis and emphysema Heart failure. This is when weak heart muscle allows extra fluid to collect in the lungs. Panic attacks or anxiety. Fear can cause rapid breathing (hyperventilation). Pneumonia, or an infection in the lung tissue Exposure to toxic substances, fumes, smoke, or certain medicines Blood clot in the lung (pulmonary embolism). This is often from a piece of blood clot in a deep vein of the leg (deep vein thrombosis) that breaks off and travels to the lungs. Heart attack or heart-related chest pain (angina) Anemia Collapsed lung (pneumothorax) Dehydration Based on your visit today, the exact cause of your shortness of breath is not certain. Your tests don t show any of the serious causes of dyspnea. You may need other tests to find out if you have a serious problem. It s important to watch for any new symptoms or symptoms that get worse. Follow up with your healthcare provider as directed. Home care Follow these tips to take care of yourself at home: When your symptoms are better, go back to your usual activities. If you smoke, you should stop. Join a quit-smoking program or ask your healthcare provider for help. Eat a healthy diet and get plenty of sleep. Get regular exercise. Talk with your healthcare provider before starting to exercise, especially ifyou have other medical problems. Cut down on the amount of caffeine and stimulants you consume. Follow-up care Follow up with your healthcare provider, or as advised. If tests were done, you will be told if your treatment needs to be changed. You can call as directed for the results. If an X-ray was taken, a specialist will review it. You will be notified of any new findings that may affect your care. Call 911 Shortness of breath may be a sign of a serious medical problem. For example, it may be a problem with your heart or lungs. Call 911 if you have worsening shortness of breath or trouble breathing, especially with any of the symptoms below: Confusion or difficulty waking Fainting or loss of consciousness. Fast or irregular heartbeat Coughing up blood Pain in your chest, arm, shoulder, neck, or upper back Sweating When to seek medical advice Call your healthcare provider right away if any of these occur: Slight shortness of breath or wheezing Redness, pain or swelling in your leg, arm, or other body area Swelling in both legs or ankles Fast weight gain Dizziness or weakness Fever of 100.4 F (38 C) or higher, or as directed by your healthcare provider [id number] [employer]. [address] [place] [address]. All rights reserved. This information is not intended as a substitute for professional medical care. Always follow yourhealthcare professional's instructions. Follow Up Care 10/28/2023 09:34:39 With:BERNA MICHEL MD Address: [address] [facility] [place] [address]- When:2-[address] [facility] 07-17-2024 Note Discharge Instructions Thank you for allowing [facility] to assist you with your healthcare needs. The following is importantdischarge information regarding your hospital visit. Diagnosis from Today's Visit Dyspnea What to Do Next Instructions from Your Care Team No qualifying data available. Post Acute Orders No qualifying data available. You Need to Schedule the Following Appointments Follow Up with BERNA MICHEL MD When:Within 2-4 days Where:[address] [facility] [place] [place] [address]- Allergies Bactrim Blisters propofol Anxiety sulfa drugs Medications Please ask your primary doctor or pharmacist before taking any other medication not listed, including over the counter drugs, herbal medications, vitamins and or supplements as they may interact withyour home medications. What How Much When Why Instructions Last Dose Unchanged albuterol (albuterol 2.5 mg/ 3 mL (0.083%) inhalation solution) 3 Milliliter by inhalation Every 6 hours as needed for as needed for wheezing Benign essential hypertension Unchanged APAP/ butalbital/ caffeine (acetaminophen/ butalbital/ caffeine 300 mg-50 mg-40 mg oral capsule) 2 cap by mouth Every 4 hours as needed for for headache Benign essential hypertension Chronic migraine without aura, with intractable migraine, so stated, with status migrainosus Unchanged apixaban (Eliquis Starter Pack for Treatment of DVT and PE 5 mg oral tablet) [10mg BID x 7days-then 5mg BID] by mouth Two (2) times a day Duration: 30 Days Unchanged cholecalciferol (Vitamin D3 1250 mcg (50,000 intl units) oral capsule) 1 cap by mouth Every week Benign essential hypertension Duration: 90 Days Unchanged clonazePAM (clonazePAM 1 mg oral tablet) 1 tab(s) by mouth Four (4) times a day Anxiety Duration: 90 Days Unchanged dicyclomine (dicyclomine 20 mg oral tablet) 1 tab(s) by mouth Three (3) times a day Benign essential hypertension Acute sinusitis Duration: 30 Days Unchanged escitalopram (escitalopram 20 mg oral tablet) 1 tab(s) by mouth Every day Depression, major, recurrent, in remission Unchanged ferrous gluconate (ferrous gluconate 324 mg (38 mg elemental iron) oral tablet) 1 tab(s) by mouth Two (2) times a day Chronic sinusitis Iron deficiency anemia Duration: 90 Days Unchanged hydroxychloroquine (hydroxychloroquine 200 mg oral tablet) 1 tab(s) by mouth Two (2) times a day Unchanged metoprolol (metoprolol tartrate 25 mg oral tablet) 1 tab(s) by mouth Two (2) times a day Duration: 100 Days filling in lieu of pcp Unchanged pantoprazole (pantoprazole 40 mg oral enteric coated tablet) 1 tab(s) by mouth Two (2) times a day Duration: 90 Days Unchanged phentermine (phentermine 37.5 mg oral tablet) 1 tab(s) by mouth Once a day (in the morning) Morbid obesity with body mass index of 50 or higher Duration: 30 Days Please take this list to your next doctor s visit. Bring all medications you take, including over the counter medications, herbals and other supplements with you to your doctor s visit. Patients and families are reminded to discard old lists and to update any records with all medication providers or retail pharmacies. Education Materials Shortness of Breath (Dyspnea) Shortness of breath is the feeling that you can't catch your breath or get enough air. It is also known as dyspnea. Dyspnea can be caused by many different conditions. They include: Acute asthma attack Worsening of chronic lung diseases such as chronic bronchitis and emphysema Heart failure. This is when weak heart muscle allows extra fluid to collect in the lungs. Panic attacks or anxiety. Fear can cause rapid breathing (hyperventilation). Pneumonia, or an infection in the lung tissue Exposure to toxic substances, fumes, smoke, or certain medicines Blood clot in the lung (pulmonary embolism). This is often from a piece of blood clot in a deep vein of the leg (deep vein thrombosis) that breaks off and travels to the lungs. Heart attack or heart-related chest pain (angina) Anemia Collapsed lung (pneumothorax) Dehydration Based on your visit today, the exact cause of your shortness of breath is not certain. Your tests don t show any of the serious causes of dyspnea. You may need other tests to find out if you have a serious problem. It s important to watch for any new symptoms or symptoms that get worse. Follow up with your healthcare provider as directed. Home care Follow these tips to take care of yourself at home: When your symptoms are better, go back to your usual activities. If you smoke, you should stop. Join a quit-smoking program or ask your healthcare provider for help. Eat a healthy diet and get plenty of sleep. Get regular exercise. Talk with your healthcare provider before starting to exercise, especially ifyou have other medical problems. Cut down on the amount of caffeine and stimulants you consume. Follow-up care Follow up with your healthcare provider, or as advised. If tests were done, you will be told if your treatment needs to be changed. You can call as directed for the results. If an X-ray was taken, a specialist will review it. You will be notified of any new findings that may affect your care. Call 911 Shortness of breath may be a sign of a serious medical problem. For example, it may be a problem with your heart or lungs. Call 911 if you have worsening shortness of breath or trouble breathing, especially with any of the symptoms below: Confusion or difficulty waking Fainting or loss of consciousness. Fast or irregular heartbeat Coughing up blood Pain in your chest, arm, shoulder, neck, or upper back Sweating When to seek medical advice Call your healthcare provider right away if any of these occur: Slight shortness of breath or wheezing Redness, pain or swelling in your leg, arm, or other body area Swelling in both legs or ankles Fast weight gain Dizziness or weakness Fever of 100.4 F (38 C) or higher, or as directed by your healthcare provider [phone] [employer]. [address] [place] [address]. All rights reserved. This information is not intended as a substitute for professional medical care. Always follow yourhealthcare professional's instructions. Additional Information VACCINATE! IT SAVES LIVES! Members of the community who have not yet received the COVID-19 vaccine and would like to receive it can visit one of [facility] vaccine clinics. There are many vaccine clinic locations within the [facility]. For locations and available times, please visit www.gettheshot.coronavirus.[place].gov/. It is important to note that some COVID mobile vaccine clinics are held outdoors and may be canceled in rainy or stormy conditions. To learn more about pediatric vaccinations (ages 5-11), we invite you to visit the [facility] webpage. https://www.[email or web address].org/pages/3339-Gnzma-Zfzzkkiswlm-Tepszhyjyu-Rcgob-[email or web address] stions.htmlTo learn more about the COVID-19 vaccine, we invite you to visit the CDC website for a list of frequently asked questions. https://www.cdc.gov/coronavirus/2019-ncov/vaccines/faq.html [facility] Patient Portal Access Instructions: Stay connected with your healthcare team and access your personal medical information anytime with the [facility] Patient Portal. If you would like a full copy of your medical records please contact the [facility] Medical Records Department Thursday through Thursday between 8a.m. and 4:30p.m. Please follow the directions below to access the portal: 1.Access the email account you provided upon registration to the [facility].2.Look for an invitation email from [facility].3.Open the email and access the invitation link: Accept Invitation to [facility]4.Fill in the required de la garza to create your account. Sign into [email or web address] with your username and password that you created in the above steps to stay up to date. You can then view a summary of results, a summary of your visits, and the ability to download your summaries to your computer or send the information securely to a physician. Remember that your healthcare information is confidential, so carefully consider who you will allow to register on the [facility] Patient Portal for access to your information. You can also access the [facility] Patient Portal on the Gertrude maira. Simply click on Health Records under [employer] and then click on the [employer] logo. HOW TO SAFELY DISPOSE OF PRESCRIPTION MEDICATIONS Please use one of the following methods to safely dispose of your unused medications. 1.Use a drug disposal kit: the drug disposal pouch allows you to safely discard your old and unuseddrugs. Ask your nurse to give you one when you are discharged.2.Visit a local take-back location: Many local pharmacies and police departments have programs that collect old and unwanted prescriptiondrugs. Call your local pharmacy or go to http://bit.Airbnb/9Z3Ui9z to find one close to you.3.Make use of household items: Use cat litter or old coffee grounds to dispose medications if other options arenot available. Mix your drugs with these household products, seal them in an airtight container andthrow it into the garbage. Call [facility]: [phone] to be sure your drugs can be disposed of in this way. Some medicines may require a different approach.4.Never flush your medications down the toilet. IF YOU HAVE BEEN PRESCRIBED AN OPIOIDS FOR PAIN If you have been prescribed an opioid (such as hydrocodone, oxycodone or morphine), it is critical to understand the possible side effects and risks of opioid pain medications. Even when taken as directed, opioids can have several side effects including: Tolerance, meaning you might need to take more of a medication for the same pain relief. Nausea, vomiting and/or constipation. Sleepiness, dizziness, dry mouth, confusion, depression or itching. Physical dependence, meaning you have withdrawal symptoms when a medication is stopped ? this can develop within a few days. KNOW YOUR RESPONSIBILITIES It is important to know exactly how much and how often to take the opioid pain medications you are prescribed. Never take opioids in higher amounts or more often than prescribed. Do not combine opioids with alcohol or other drugs that cause drowsiness, such as benzodiazepines, also known as benzos,including diazepam and alprazolam, muscle relaxants or sleep aids. Never sell or share prescriptionopioids. This is illegal. Store opioids in a secure place and out of reach of others (including children, family, friends and visitors). The last page(s) of this document has been signed and retained as a CHART COPY Signatures Patient Education Materials Shortness of Breath (Dyspnea) Medication Leaflets My discharge plan and instructions have been reviewed and explained to me and I,RAIN MURPHY understand my current condition and have read and understand these discharge instructions. I have received a written copy of the plan/instructions. If I have questions, I am aware that I should contact my doctor. 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07-17-2024 Note ORIGINAL EXAMINATION: CTA OF THE CHEST 10/28/2023 10:41 am TECHNIQUE: CTA of the chest was performed after the administration of intravenous contrast. Multiplanar reformatted images are provided for review. MIP images are provided for review. Automated exposure control, iterative reconstruction, and/or weight based adjustment of the mA/kV was utilized to reduce the radiation dose to as low as reasonably achievable. COMPARISON: None. HISTORY: ORDERING SYSTEM PROVIDED HISTORY: Reason for Exam: chest pain; suspect PE FINDINGS: Mild degenerative changes are noted in the spine. Deformity of 1 of the right lower lateral ribs is partially visible, presumably the result of remote trauma. 4 mm right middle lobe nodule noted. This is considered benign and does not require additional imaging workup. Small areas of atelectasis are evident at the lateral aspect of the left lower lobe. There is some lingular involvement as well. No confluent infiltrate is visible and there is no pleural fluid seen. A small amount of pericardial recess fluid is noted. No mediastinal adenopathy is visible. Small sliding hiatal hernia noted. No pulmonary artery defect is identified on this exam. No additional contributory abnormality seen. IMPRESSION: No evidence for pulmonary embolism on this exam. Small areas of lingular and left lower lobe atelectasis. No other acute finding. Interpreted by: Grace Rivero MD Preliminary Report By: Grace Rivero MD Electronically signed By Grace Rivero MD Dictated Date: 10/28/2023 10:43:45 AM Prelim Date: 10/28/2023 10:48:13 AM Sign Date: 10/28/2023 10:48:13 AM [facility] Sinus rhythm Prolonged UT interval Electronic Signature: ROMAINE CARR DO 10/28/2023 10:02:04[facility] 03-19-2023 Hospital Discharge instructions Patient Education 06/29/2022 13:23:35 Lower GI Bleeding (Stable) Lower Gastrointestinal (GI) Bleeding (Stable) You have signs of blood in your stool. This is called rectal bleeding. The bleeding may have begun in another part of your gastrointestinal (GI) tract. If the blood is bright red, it is likely comingfrom the lower part of the GI tract. If the blood is black or dark, it might be coming from higher up in the GI tract. Very small amounts of GI bleeding may not be visible and can only be discovered during a test on your stool. Possible causes of lower GI bleeding include: Swollen inflamed veins in the rectum (hemorrhoids) Tear in the lining of the anus (anal fissures) Inflammation of a small pouch in the intestine (diverticulitis) Inflammatory bowel disease (Crohn's disease or ulcerative colitis) Polyps (growths) in the intestine Swelling and irritation of the colon (infectious colitis) Colon cancer Note: Iron supplements and medicines for diarrhea or upset stomach can cause black stools. Foods such as licorice and red beets can also discolor the stool and be mistaken for bleeding. These are notbleeding and are not a cause for alarm. Home care You have not lost a large amount of blood and your condition appears stable at this time. You may resume normal activity as long as you feel well. Don't take NSAIDs, such as aspirin, ibuprofen, or naproxen. They can irritate the stomach and causefurther bleeding. If you are taking these medicines for other medical reasons, talk to your healthcare provider before you stop them. Follow-up care Follow up with your healthcare provider, or as advised. Further tests may be needed to find the cause of your bleeding. When to seek medical advice Call your healthcare provider right away for any of the following: Large amount of rectal bleeding Increasing abdominal pain Weakness, dizziness Call 911 Call 911 if any of the following occur: Loss of consciousness Vomiting blood [phone] [employer]. [address] [place] [address]. All rights reserved. This information is not intended as a substitute for professional medical care. Always follow yourhealthcare professional's instructions. Follow Up Care 06/29/2022 11:18:35 With:NENA HENSLEY Address: [address] [facility] [place] [address] [phone] Business (1) When:2-4 days With:BERNA MICHEL Address: [address] [facility] [place] [address]- Business (1) When:2-[address] [facility] 03-19-2023 Note Discharge Instructions Thank you for allowing [facility] to assist you with your healthcare needs. The following is importantdischarge information regarding your hospital visit. Diagnosis from Today's Visit Abdominal pain Rectal bleed Rectal bleeding What to Do Next Instructions from Your Care Team No qualifying data available. Post Acute Orders No qualifying data available. You Need to Schedule the Following Appointments Follow Up with NENA HENSLEY When Within 2-4 days Where: [address] [facility] [place] [address] [phone] Business (1) Follow Up with BERNA MICHEL When Within 2-4 days Where: [address] [facility] [place] [address]- Business (1) Allergies Bactrim (Blisters) propofol (Anxiety) sulfa drugs Medications Please ask your primary doctor or pharmacist before taking any other medication not listed, including over the counter drugs, herbal medications, vitamins and or supplements as they may interact withyour home medications. What How Much When Why Instructions Last Dose New polyethylene glycol 3350 (Miralax Powder Packet) 17 gram(s) by mouth Once a day Duration: 7 Days Printed Prescription Unchanged clonazePAM (clonazePAM 1 mg oral tablet) 1 tab(s) by mouth Three (3) times a day Anxiety Duration: 90 Days as needed Unchanged dicyclomine (dicyclomine 20 mg oral tablet) 1 tab(s) by mouth Three (3) times a day Benign essential hypertension Acute sinusitis Duration: 30 Days Unchanged escitalopram (escitalopram 20 mg oral tablet) 1 tab(s) by mouth Every day Depression, major, recurrent, in remission Unchanged hydroxychloroquine (hydroxychloroquine 200 mg oral tablet) 1 tab(s) by mouth Two (2) times a day Unchanged metoprolol (metoprolol tartrate 25 mg oral tablet) 1 tab(s) by mouth Two (2) times a day Unchanged pantoprazole (pantoprazole 40 mg oral enteric coated tablet) 1 tab(s) by mouth Two (2) times a day Duration: 90 Days Please take this list to your next doctor s visit. Bring all medications you take, including over the counter medications, herbals and other supplements with you to your doctor s visit. Patients and families are reminded to discard old lists and to update any records with all medication providers or retail pharmacies. Medication Leaflets polyethylene glycol 3350 (kezia ee ETH il een GLYE kol) ClearLax, GaviLAX, Gialax, GlycoLax, MiraLax, [id number], [employer] ClearLax What is the most important information I should know about polyethylene glycol 3350? You should not use this medicine if you have a bowel obstruction or intestinal blockage. If you have any of these conditions, you could have dangerous or life- threatening side effects from polyethylene glycol 3350. Do not use polyethylene glycol 3350 more than once per day. Call your doctor if you are still constipated or irregular after using this medication for 7 days in a row. What is polyethylene glycol 3350? Polyethylene glycol 3350 is a laxative solution that increases the amount of water in the intestinal tract to stimulate bowel movements. Polyethylene glycol 3350 is used as a laxative to treat occasional constipation or irregular bowel movements. Polyethylene glycol 3350 may also be used for purposes not listed in this medication guide. What should I discuss with my healthcare provider before taking polyethylene glycol 3350? You should not use this medicine if you are allergic to polyethylene glycol, or if you have a bowelobstruction or intestinal blockage. If you have any of these conditions, you could have dangerous or life-threatening side effects from polyethylene glycol 3350. People with eating disorders (such as anorexia or bulimia) should not use this medication without the advice of a doctor. To make sure this medicine is safe for you, tell your doctor if you have: nausea, vomiting, or severe stomach pain; ulcerative colitis; irritable bowel syndrome; kidney disease; or if you have had a sudden change in bowel habits that has lasted 2 weeks or longer. FDA category C. It is not known whether polyethylene glycol 3350 will harm an unborn baby. Tell your doctor if you are or plan to become while using this medication. It is not known whether polyethylene glycol 3350 passes into breast milk or if it could harm a nursing baby. Tell your doctor if you are breast-feeding a baby. How should I take polyethylene glycol 3350? Follow all directions on your prescription label. Do not use this medicine in larger or smaller amounts or for longer than recommended. To use the powder form of this medicine, measure your dose with the medicine cap on the bottle. This cap should contain dose cheng on the inside of it. Pour the powder into 4 to 8 ounces of a cold orhot beverage such as water, juice, soda, coffee, or tea. Stir this mixture and drink it right away.Do not save for later use. Polyethylene glycol 3350 should produce a bowel movement within 1 to 3 days of using the medication. Polyethylene glycol 3350 normally causes loose or even watery stools. Do not use polyethylene glycol 3350 more than once per day. Call your doctor if you are still constipated or irregular after using this medication for 7 days in a row. Store at room temperature away from moisture and heat. What happens if I miss a dose? Take the missed dose as soon as you remember. Skip the missed dose if it is almost time for your next scheduled dose. Do not take extra medicine to make up the missed dose. What happens if I overdose? Seek emergency medical attention or call the Poison Help line at . What should I avoid while taking polyethylene glycol 3350? Follow your doctor's instructions about any restrictions on food, beverages, or activity. What are the possible side effects of polyethylene glycol 3350? Get emergency medical help if you have signs of an allergic reaction: hives; difficult breathing; swelling of your face, lips, tongue, or throat. Stop taking this medicine and call your doctor at once if you have: severe or bloody diarrhea; rectal bleeding; blood in your stools; or severe and worsening stomach pain. Common side effects may include: bloating, gas, upset stomach; dizziness; or increased sweating. This is not a complete list of side effects and others may occur. Call your doctor for medical advice about side effects. You may report side effects to FDA at 9-073-PEQ-5298. What other drugs will affect polyethylene glycol 3350? Other drugs may interact with polyethylene glycol 3350, including prescription and bfhh-eil-wwgdeshcjrekxmzt, vitamins, and herbal products. Tell each of your health care providers about all medicines you use now and any medicine you start or stop using. Where can I get more information? Your pharmacist can provide more information about polyethylene glycol 3350. Remember, keep this and all other medicines out of the reach of children, never share your medicines with others, and use this medication only for the indication prescribed. Every effort has been made to ensure that the information provided by [employer]. ('[employer]') is accurate, up-to-date, and complete, but no guarantee is made to that effect. Drug information contained herein may be time sensitive. [employer] information has been compiled for use by healthcare practitioners and consumers in the [place] and therefore [employer] does not warrant that uses outside of the [place] are appropriate, unless specifically indicated otherwise. [employer] drug information does not endorse drugs, diagnose patients or recommend therapy. [employer] drug information isan informational resource designed to assist licensed healthcare practitioners in caring for their p atients and/or to serve consumers viewing this service as a supplement to, and not a substitute for, the expertise, skill, knowledge and judgment of healthcare practitioners. The absence of a warningfor a given drug or drug combination in no way should be construed to indicate that the drug or drug combination is safe, effective or appropriate for any given patient. [employer] does not assume any responsibility for any aspect of healthcare administered with the aid of information [employer] provides. The information contained herein is not intended to cover all possible uses, directions, precautions, warnings, drug interactions, allergic reactions, or adverse effects. If you have questions about the drugs you are taking, check with your doctor, nurse or pharmacist. Copyright 7410-7052 [employer]. Version: 2.04. Revision Date: 07/16/2016. Education Materials Lower Gastrointestinal (GI) Bleeding (Stable) You have signs of blood in your stool. This is called rectal bleeding. The bleeding may have begun in another part of your gastrointestinal (GI) tract. If the blood is bright red, it is likely comingfrom the lower part of the GI tract. If the blood is black or dark, it might be coming from higher up in the GI tract. Very small amounts of GI bleeding may not be visible and can only be discovered during a test on your stool. Possible causes of lower GI bleeding include: Swollen inflamed veins in the rectum (hemorrhoids) Tear in the lining of the anus (anal fissures) Inflammation of a small pouch in the intestine (diverticulitis) Inflammatory bowel disease (Crohn's disease or ulcerative colitis) Polyps (growths) in the intestine Swelling and irritation of the colon (infectious colitis) Colon cancer Note: Iron supplements and medicines for diarrhea or upset stomach can cause black stools. Foods such as licorice and red beets can also discolor the stool and be mistaken for bleeding. These are notbleeding and are not a cause for alarm. Home care You have not lost a large amount of blood and your condition appears stable at this time. You may resume normal activity as long as you feel well. Don't take NSAIDs, such as aspirin, ibuprofen, or naproxen. They can irritate the stomach and causefurther bleeding. If you are taking these medicines for other medical reasons, talk to your healthcare provider before you stop them. Follow-up care Follow up with your healthcare provider, or as advised. Further tests may be needed to find the cause of your bleeding. When to seek medical advice Call your healthcare provider right away for any of the following: Large amount of rectal bleeding Increasing abdominal pain Weakness, dizziness Call 911 Call 911 if any of the following occur: Loss of consciousness Vomiting blood [phone] [employer]. [address] [place] [address]. All rights reserved. This information is not intended as a substitute for professional medical care. Always follow yourhealthcare professional's instructions. Additional Information VACCINATE! IT SAVES LIVES! Members of the community who have not yet received the COVID-19 vaccine and would like to receive it can visit one of [facility] vaccine clinics. There are many vaccine clinic locations within the [facility]. For locations and available times, please visit www.[email or web address].[place].gov/. It is important to note that some COVID mobile vaccine clinics are held outdoors and may be canceled in rainy or stormy conditions. To learn more about pediatric vaccinations (ages 5-11), we invite you to visit the [facility] webpage. [email or web address] learn more about the COVID-19 vaccine, we invite you to visit the CDC website for a list of frequently asked questions. https://www.cdc.gov/coronavirus/2019-ncov/vaccines/faq.html [facility] Access Instructions: Stay connected with your healthcare team and access your personal medical information anytime with the [facility]. If you would like a full copy of your medical records please contact the [facility] Medical Records Department Thursday through Thursday between 8a.m. and 4:30p.m. Please follow the directions below to access the portal: 1.Access the email account you provided upon registration to the hospital.2.Look for an invitation email from [facility].3.Open the email and access the invitation link: [facility].Fill in the required de la garza to create your account. Sign into [email or web address] with your username and password that you created in the above steps to stay up to date. You can then view a summary of results, a summary of your visits, and the ability to download your summaries to your computer or send the information securely to a physician. Remember that your healthcare information is confidential, so carefully consider who you will allow to register on the [facility] for access to your information. You can also access the [facility] on the [employer]. Simply click on Health Records under [employer] and then click on the [employer] logo. HOW TO SAFELY DISPOSE OF PRESCRIPTION MEDICATIONS Please use one of the following methods to safely dispose of your unused medications. 1.Use a drug disposal kit: the drug disposal pouch allows you to safely discard your old and unuseddrugs. Ask your nurse to give you one when you are discharged.2.Visit a local take-back location: Many local pharmacies and police departments have programs that collect old and unwanted prescriptiondrugs. Call your local pharmacy or go to http://[employer].Airbnb/1V9Hi5y to find one close to you.3.Make use of household items: Use cat litter or old coffee grounds to dispose medications if other options arenot available. Mix your drugs with these household products, seal them in an airtight container andthrow it into the garbage. Call [facility]: [phone] to be sure your drugs can be disposed of in this way. Some medicines may require a different approach.4.Never flush your medications down the toilet. IF YOU HAVE BEEN PRESCRIBED AN OPIOIDS FOR PAIN If you have been prescribed an opioid (such as hydrocodone, oxycodone or morphine), it is critical to understand the possible side effects and risks of opioid pain medications. Even when taken as directed, opioids can have several side effects including: Tolerance, meaning you might need to take more of a medication for the same pain relief. Nausea, vomiting and/or constipation. Sleepiness, dizziness, dry mouth, confusion, depression or itching. Physical dependence, meaning you have withdrawal symptoms when a medication is stopped ? this can develop within a few days. KNOW YOUR RESPONSIBILITIES It is important to know exactly how much and how often to take the opioid pain medications you are prescribed. Never take opioids in higher amounts or more often than prescribed. Do not combine opioids with alcohol or other drugs that cause drowsiness, such as benzodiazepines, also known as benzos,including diazepam and alprazolam, muscle relaxants or sleep aids. Never sell or share prescriptionopioids. This is illegal. Store opioids in a secure place and out of reach of others (including children, family, friends and visitors). The last page(s) of this document has been signed and retained as a CHART COPY Signatures Patient Education Materials Lower GI Bleeding (Stable) Medication Leaflets polyethylene glycol 3350 My discharge plan and instructions have been reviewed and explained to me and I,RAIN MURPHY understand my current condition and have read and understand these discharge instructions. I have received a written copy of the plan/instructions. If I have questions, I am aware that I should contact my doctor. 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03-19-2023 Note ORIGINAL EXAMINATION: CT OF THE ABDOMEN AND PELVIS WITH CONTRAST 06/29/2022 12:44 pm TECHNIQUE: CT of the abdomen and pelvis was performed with the administration of intravenous contrast. Multiplanar reformatted images are provided for review. Automated exposure control, iterative reconstruction, and/or weight based adjustment of the mA/kV was utilized to reduce the radiation dose to as low as reasonably achievable. COMPARISON: 11/21/2021 HISTORY: ORDERING SYSTEM PROVIDED HISTORY: Reason for Exam: pain Left lower quadrant pain with nausea and diarrhea FINDINGS: Lower Chest: Lung bases are clear. There is no pericardial effusion or tamponade. Organs: Enhance liver, spleen, pancreas, adrenal glands, and kidneys are unremarkable. The gallbladder surgically absent. GI/Bowel: Small large bowel loops are of normal caliber and course. The appendix is normal. Moderate diverticulosis affects the distal descending and sigmoid colon without acute inflammatory changes. Pelvis: No ascites is seen. Urinary bladder is smooth in contour. Uterus and adnexa are age-appropriate. Peritoneum/Retroperitoneum: Contour of the abdominal aorta, inferior vena cava and ureters is normal. There is no lymphadenopathy, free intraperitoneal fluid or air. Bones/Soft Tissues: Remain intact and age-appropriate. IMPRESSION: 1. Moderate sigmoid diverticulosis without inflammatory change or complication. 2. Gallbladder surgically absent. Interpreted by: Sigifredo Kim DO Preliminary Report By: Sigifredo Kim DO Electronically signed By Sigifredo Kim DO Dictated Date: 06/29/2022 1:02:09 PM Prelim Date: 06/29/2022 1:06:34 PM Sign Date: 06/29/2022 1:06:34 PM Ordering Provider: BYRON DÍAZ [facility]03-19-2023 Note ORIGINAL EXAMINATION: CT OF THE ABDOMEN AND PELVIS WITH CONTRAST 06/29/2022 12:44 pm TECHNIQUE: CT of the abdomen and pelvis was performed with the administration of intravenous contrast. Multiplanar reformatted images are provided for review. Automated exposure control, iterative reconstruction, and/or weight based adjustment of the mA/kV was utilized to reduce the radiation dose to as low as reasonably achievable. COMPARISON: 11/21/2021 HISTORY: ORDERING SYSTEM PROVIDED HISTORY: Reason for Exam: pain Left lower quadrant pain with nausea and diarrhea FINDINGS: Lower Chest: Lung bases are clear. There is no pericardial effusion or tamponade. Organs: Enhance liver, spleen, pancreas, adrenal glands, and kidneys are unremarkable. The gallbladder surgically absent. GI/Bowel: Small large bowel loops are of normal caliber and course. The appendix is normal. Moderate diverticulosis affects the distal descending and sigmoid colon without acute inflammatory changes. Pelvis: No ascites is seen. Urinary bladder is smooth in contour. Uterus and adnexa are age-appropriate. Peritoneum/Retroperitoneum: Contour of the abdominal aorta, inferior vena cava and ureters is normal. There is no lymphadenopathy, free intraperitoneal fluid or air. Bones/Soft Tissues: Remain intact and age-appropriate. IMPRESSION: 1. Moderate sigmoid diverticulosis without inflammatory change or complication. 2. Gallbladder surgically absent. Interpreted by: Sigifredo Kim DO Preliminary Report By: Sigifredo Kim DO Electronically signed By Sigifredo Kim DO Dictated Date: 06/29/2022 1:02:09 PM Prelim Date: 06/29/2022 1:06:34 PM Sign Date: 06/29/2022 1:06:34 PM Ordering Provider: [facility]08-11-2022 Hospital Discharge instructions Patient Education 11/21/2021 16:48:19 Abdominal Pain Abdominal Pain Abdominal pain is pain in the stomach or belly area. Everyone has this pain from time to time. In many cases it goes away on its own. But abdominal pain can sometimes be due to a serious problem, such as appendicitis. So it s important to know when to get help. Causes of abdominal pain There are many possible causes of abdominal pain. Common causes in adults include: Constipation, diarrhea, or gas Stomach acid flowing back up into the esophagus (acid reflux or heartburn) Severe acid reflux, called GERD (gastroesophageal reflux disease) A sore in the lining of the stomach or small intestine (peptic ulcer) Inflammation of the gallbladder, liver, or pancreas Gallstones or kidney stones Appendicitis Intestinal blockage An internal organ pushing through a muscle or other tissue (hernia) Urinary tract infections In women, menstrual cramps, fibroids, ovarian cysts, pelvic inflammatory disease, or endometriosis Inflammation or infection of the intestines, including Crohn's disease and ulcerative colitis Irritable bowel syndrome Diagnosing the cause of abdominal pain Your healthcare provider will give you a physical exam help find the cause of your pain. If needed,you will have tests. Belly pain has many possible causes. So it can be hard to find the reason for your pain. Giving details about your pain can help. Tell your provider where and when you feel the pain, and what makes it better or worse. Also let your provider know if you have other symptoms such as: Fever Tiredness Upset stomach (nausea) Vomiting Changes in bathroom habits Blood in the stool or black, tarry stool Weight loss that you can't explain (involuntary weight loss?) Also report any family history of stomach or intestinal problems, or cancers. Tell your provider about all your alcohol use and drug use. Tell your provider about all medicines you use, including herbs, vitamins, and supplements. Treating abdominal pain Some causes of pain need emergency medical treatment right away. These include appendicitis or a bowel blockage. Other problems can be treated with rest, fluids, or medicines. Your healthcare provider can give you specific instructions for treatment or self-care based on what is causing your pain. If you have vomiting or diarrhea, sip water or other clear fluids. When you are ready to eat solid foods again, start with small amounts of ofwx-lx-frzrbr, low- fat foods. These include apple sauce, toast, or crackers. When to get medical care Call 911 or go to the hospital right away if you: Can t pass stool and are vomiting Are vomiting blood or have bloody diarrhea or black, tarry diarrhea Have chest, neck, or shoulder pain Feel like you might pass out Have pain in your shoulder blades with nausea Have sudden, severe belly pain Have new, severe pain unlike any you have felt before Have a belly that is rigid, hard, and hurts to touch Call your healthcare provider if you have: Pain for more than 5 days Bloating for more than 2 days Diarrhea for more than 5 days A fever of 100.4 F (38 C) or higher, or as directed by your healthcare provider Pain that gets worse Weight loss for no reason Continued lack of appetite Blood in your stool How to prevent abdominal pain Here are some tips to help prevent abdominal pain: Eat smaller amounts of food at each meal. Don't eat greasy, fried, or other high-fat foods. Don't eat foods that give you gas. Exercise regularly. Drink plenty of fluids. To help prevent GERD symptoms: Quit smoking. Reduce alcohol and foods that increase stomach acid. Don't use aspirin or ipri-pap-xnvsdac pain and fever medicines, if possible. This includes nonsteroidal anti-inflammatory drugs (NSAIDs). Lose excess weight. Finish eating at least 2 hours before you go to bed or lie down. Raise the head of your bed. 3993-7474 [employer]. [address] [place] [address], [place] [address]. All rights reserved. This information is not intended as a substitute for professional medical care. Always follow yourhealthcare professional's instructions. Follow Up Care 11/21/2021 15:11:51 With:BERNA MICHEL MD Address: [address] [place], [place] [id number]- When:2-[address] [facility] 08-11-2022 Emergency department Discharge summary Discharge Instructions Thank you for allowing [facility] to assist you with your healthcare needs. The following is importantdischarge information regarding your hospital visit. Diagnosis from Today's Visit Abdominal pain Abdominal pain What to Do Next Instructions from Your Care Team No qualifying data available. Post Acute Orders No qualifying data available. You Need to Schedule the Following Appointments Follow Up with BERNA MICHEL MD When Within 2-4 days Where: [address] [place], [place] [id number] Allergies Bactrim (Blisters) propofol (Anxiety) sulfa drugs Medications Please ask your primary doctor or pharmacist before taking any other medication not listed, including over the counter drugs, herbal medications, vitamins and or supplements as they may interact [facility]. What How Much When Why Instructions Last Dose Unchanged clonazePAM (clonazePAM 1 mg oral tablet) 1 tab(s) by mouth Three (3) times a day Anxiety Duration: 90 Days as needed Unchanged dicyclomine (dicyclomine 10 mg oral capsule) 1 cap by mouth Four (4) times a day as needed for abdominal discomfort Unchanged escitalopram (escitalopram 20 mg oral tablet) 1 tab(s) by mouth Every day Depression, major, recurrent, in remission Unchanged hydroxychloroquine (hydroxychloroquine 200 mg oral tablet) 1 tab(s) by mouth Two (2) times a day Unchanged meloxicam (meloxicam 15 mg oral tablet) 1 tab(s) by mouth Once a day Duration: 90 Days Unchanged metoprolol (metoprolol tartrate 25 mg oral tablet) 1 tab(s) by mouth Two (2) times a day Unchanged ondansetron (Zofran ODT use ondansetron oral tablet, disintegrating ) 4 Milligram by mouth Every 8 hours Diverticulitis Duration: 5 Days Unchanged pantoprazole (pantoprazole 40 mg oral enteric coated tablet) 1 tab(s) by mouth Two (2) times a day Duration: 30 Days Please take this list to your next doctor s visit. Bring all medications you take, including over the counter medications, herbals and other supplements with you to your doctor s visit. Patients and families are reminded to discard old lists and to update any records with all medication providers or retail pharmacies. Education Materials Abdominal Pain Abdominal pain is pain in the stomach or belly area. Everyone has this pain from time to time. In many cases it goes away on its own. But abdominal pain can sometimes be due to a serious problem, such as appendicitis. So it s important to know when to get help. Causes of abdominal pain There are many possible causes of abdominal pain. Common causes in adults include: Constipation, diarrhea, or gas Stomach acid flowing back up into the esophagus (acid reflux or heartburn) Severe acid reflux, called GERD (gastroesophageal reflux disease) A sore in the lining of the stomach or small intestine (peptic ulcer) Inflammation of the gallbladder, liver, or pancreas Gallstones or kidney stones Appendicitis Intestinal blockage An internal organ pushing through a muscle or other tissue (hernia) Urinary tract infections In women, menstrual cramps, fibroids, ovarian cysts, pelvic inflammatory disease, or endometriosis Inflammation or infection of the intestines, including Crohn's disease and ulcerative colitis Irritable bowel syndrome Diagnosing the cause of abdominal pain Your healthcare provider will give you a physical exam help find the cause of your pain. If needed,you will have tests. Belly pain has many possible causes. So it can be hard to find the reason for your pain. Giving details about your pain can help. Tell your provider where and when you feel the pain, and what makes it better or worse. Also let your provider know if you have other symptoms such as: Fever Tiredness Upset stomach (nausea) Vomiting Changes in bathroom habits Blood in the stool or black, tarry stool Weight loss that you can't explain (involuntary weight loss?) Also report any family history of stomach or intestinal problems, or cancers. Tell your provider about all your alcohol use and drug use. Tell your provider about all medicines you use, including herbs, vitamins, and supplements. Treating abdominal pain Some causes of pain need emergency medical treatment right away. These include appendicitis or a bowel blockage. Other problems can be treated with rest, fluids, or medicines. Your healthcare provider can give you specific instructions for treatment or self-care based on what is causing your pain. If you have vomiting or diarrhea, sip water or other clear fluids. When you are ready to eat solid foods again, start with small amounts of cxqf-kw-siczet, low- fat foods. These include apple sauce, toast, or crackers. When to get medical care Call 911 or go to the hospital right away if you: Can t pass stool and are vomiting Are vomiting blood or have bloody diarrhea or black, tarry diarrhea Have chest, neck, or shoulder pain Feel like you might pass out Have pain in your shoulder blades with nausea Have sudden, severe belly pain Have new, severe pain unlike any you have felt before Have a belly that is rigid, hard, and hurts to touch Call your healthcare provider if you have: Pain for more than 5 days Bloating for more than 2 days Diarrhea for more than 5 days A fever of 100.4 F (38 C) or higher, or as directed by your healthcare provider Pain that gets worse Weight loss for no reason Continued lack of appetite Blood in your stool How to prevent abdominal pain Here are some tips to help prevent abdominal pain: Eat smaller amounts of food at each meal. Don't eat greasy, fried, or other high-fat foods. Don't eat foods that give you gas. Exercise regularly. Drink plenty of fluids. To help prevent GERD symptoms: Quit smoking. Reduce alcohol and foods that increase stomach acid. Don't use aspirin or bryk-zqw-fsnoqsf pain and fever medicines, if possible. This includes nonsteroidal anti-inflammatory drugs (NSAIDs). Lose excess weight. Finish eating at least 2 hours before you go to bed or lie down. Raise the head of your bed. 6198-7570 [employer]. [address] [place] [address]. All rights reserved. This information is not intended as a substitute for professional medical care. Always follow yourhealthcare professional's instructions. Additional Information VACCINATE! IT SAVES LIVES! Members of the community who have not yet received the COVID-19 vaccine and would like to receive it can visit one of [facility] vaccine clinics. There are many vaccine clinic locations within the [facility]. For locations and available times, please visit [email or web address]. It is important to note that some COVID mobile vaccine clinics are held outdoors and may be canceled in rainy orstormy conditions. To learn more about pediatric vaccinations (ages 5-11), we invite you to visit the [facility] webpage. [email or web address] [email or web address] learn more about the COVID-19 vaccine, we invite you to visit the [facility] website for a list of frequently asked questions. [email or web address] [facility] Patient Portal Access Instructions: Stay connected with your healthcare team and access your personal medical information anytime with the [facility] Patient Portal. If you would like a full copy of your medical records please contact the [facility] Medical Records Department Thursday through Thursday between 8a.m. and 4:30p.m. Please follow the directions below to access the portal: 1.Access the email account you provided upon registration to the [facility].2.Look for an invitation email from [facility].3.Open the email and access the invitation link: Accept Invitation to [facility]4.Fill in the required de la garza to create your account. Sign into www.[employer] with your username and password that you created in the above steps to stay up to date. You can then view a summary of results, a summary of your visits, and the ability to download your summaries to your computer or send the information securely to a physician. Remember that your healthcare information is confidential, so carefully consider who you will allow to register on the [facility] Patient Portal for access to your information. You can also access the [facility] Patient Portal on the [employer]. Simply click on Health Records under [place] and then click on the [facility] logo. HOW TO SAFELY DISPOSE OF PRESCRIPTION MEDICATIONS Please use one of the following methods to safely dispose of your unused medications. 1.Use a drug disposal kit: the drug disposal pouch allows you to safely discard your old and unuseddrugs. Ask your nurse to give you one when you are discharged.2.Visit a local take-back location: Many local pharmacies and police departments have programs that collect old and unwanted prescriptiondrugs. Call your local pharmacy or go to http://[employer].Airbnb/7Q5Zm4g to find one close to you.3.Make use of household items: Use cat litter or old coffee grounds to dispose medications if other options arenot available. Mix your drugs with these household products, seal them in an airtight container andthrow it into the garbage. Call [facility]: [phone] to be sure your drugs can be disposed of in this way. Some medicines may require a different approach.4.Never flush your medications down the toilet. IF YOU HAVE BEEN PRESCRIBED AN OPIOIDS FOR PAIN If you have been prescribed an opioid (such as hydrocodone, oxycodone or morphine), it is critical to understand the possible side effects and risks of opioid pain medications. Even when taken as directed, opioids can have several side effects including: Tolerance, meaning you might need to take more of a medication for the same pain relief. Nausea, vomiting and/or constipation. Sleepiness, dizziness, dry mouth, confusion, depression or itching. Physical dependence, meaning you have withdrawal symptoms when a medication is stopped ? this can develop within a few days. KNOW YOUR RESPONSIBILITIES It is important to know exactly how much and how often to take the opioid pain medications you are prescribed. Never take opioids in higher amounts or more often than prescribed. Do not combine opioids with alcohol or other drugs that cause drowsiness, such as benzodiazepines, also known as benzos,including diazepam and alprazolam, muscle relaxants or sleep aids. Never sell or share prescriptionopioids. This is illegal. Store opioids in a secure place and out of reach of others (including children, family, friends and visitors). The last page(s) of this document has been signed and retained as a CHART COPY Signatures Patient Education Materials Abdominal Pain Medication Leaflets My discharge plan and instructions have been reviewed and explained to me and I,RAIN MURPHY understand my current condition and have read and understand these discharge instructions. I have received a written copy of the plan/instructions. If I have questions, I am aware that I should contact my doctor. 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08-11-2022 Note ORIGINAL EXAMINATION: CT OF THE ABDOMEN AND PELVIS WITHOUT CONTRAST11/21/2021 3:48 pm TECHNIQUE: CT of the abdomen and pelvis was performed without the administration of intravenous contrast. Multiplanar reformatted images are provided for review. Automated exposure control, iterative reconstruction, and/or weight based adjustment of the mA/kV was utilized to reduce the radiation dose to as low as reasonably achievable. COMPARISON: CT abdomen/pelvis October 12, 2021 HISTORY: ORDERING SYSTEM PROVIDED HISTORY: Reason for Exam: abdominal pain. FINDINGS: Suboptimal evaluation secondary to body habitus. Scattered stable 2-3 mm micronodules are seen within the bilateral lung bases which are likely benign and require no further follow-up. Stable mild cardiomegaly. There is no pleural or pericardial effusion. The liver, spleen, adrenal glands, and pancreas are unremarkable. Prior cholecystectomy. The kidneys appear symmetric in size without obstructive uropathy. The ureters are unremarkable. The bladder is under distended. Small hiatal hernia. The small bowel is unremarkable. There is mild to moderate sigmoid diverticulosis without adjacent inflammation. Somewhat prominent appendix without wall thickening tapers distally without adjacent inflammation. The uterus is unremarkable. No adnexal mass. There are scattered phleboliths. The aorta is nonaneurysmal. No lymphadenopathy, free intraperitoneal gas or fluid. Mild multilevel degenerative changes of the spine without acute osseous abnormality. IMPRESSION: No acute process within the abdomen/pelvis. Sigmoid diverticulosis without diverticulitis. I have personally reviewed the images of this examination and agree with the resident's findings and interpretations. Interpreted by: eDvin Stenr Preliminary Report By: Jamarcus Madrigal Electronically signed By Devin Stern Dictated Date: 11/21/2021 3:53:43 PM Prelim Date: 11/21/2021 4:11:15 PM Sign Date: 11/21/2021 4:11:15 PM Ordering Provider: PHIL LYREN[facility]08-11-2022 Note ORIGINAL EXAMINATION: CT OF THE ABDOMEN AND PELVIS WITHOUT CONTRAST11/21/2021 3:48 pm TECHNIQUE: CT of the abdomen and pelvis was performed without the administration of intravenous contrast. Multiplanar reformatted images are provided for review. Automated exposure control, iterative reconstruction, and/or weight based adjustment of the mA/kV was utilized to reduce the radiation dose to as low as reasonably achievable. COMPARISON: CT abdomen/pelvis October 12, 2021 HISTORY: ORDERING SYSTEM PROVIDED HISTORY: Reason for Exam: abdominal pain. FINDINGS: Suboptimal evaluation secondary to body habitus. Scattered stable 2-3 mm micronodules are seen within the bilateral lung bases which are likely benign and require no further follow-up. Stable mild cardiomegaly. There is no pleural or pericardial effusion. The liver, spleen, adrenal glands, and pancreas are unremarkable. Prior cholecystectomy. The kidneys appear symmetric in size without obstructive uropathy. The ureters are unremarkable. The bladder is under distended. Small hiatal hernia. The small bowel is unremarkable. There is mild to moderate sigmoid diverticulosis without adjacent inflammation. Somewhat prominent appendix without wall thickening tapers distally without adjacent inflammation. The uterus is unremarkable. No adnexal mass. There are scattered phleboliths. The aorta is nonaneurysmal. No lymphadenopathy, free intraperitoneal gas or fluid. Mild multilevel degenerative changes of the spine without acute osseous abnormality. IMPRESSION: No acute process within the abdomen/pelvis. Sigmoid diverticulosis without diverticulitis. I have personally reviewed the images of this examination and agree with the resident's findings and interpretations. Interpreted by: Devin Stern Preliminary Report By: Jamarcus Madrigal Electronically signed By Devin Stern Dictated Date: 11/21/2021 3:53:43 PM Prelim Date: 11/21/2021 4:11:15 PM Sign Date: 11/21/2021 4:11:15 PM [facility]charge [facility] Patient Education 03/15/2021 10:23:25 1-[facility] Discharge Instructions Template (01/2018) (CUSTOM) [place] SAME DAY SURGERY DISCHARGE INSTRUCTIONS PLEASE FOLLOW THE INSTRUCTIONS BELOW MARKED WITH AN X: _x__ Regular Diet: Start with clear liquids, then soup and crackers and gradually add other foods. _x__ Drink extra fluids. ___ Special Diet Instructions: ___ ACTIVITY: __x_ Avoid stress to suture line. Since you have had an anesthetic, it would be advisable not to drive, drink alcohol, or make major decisions over the next 24 hours. You may require more rest tonight and tomorrow. _x__ May resume regular activity as tolerated. ___ Restrict activity as follows: ___ ___ Walk Only ___ ___ Do not go up and down stairs. ___ Do not ride in car until ___ ___ Do not drive car. ___ Do not have sexual intercourse. ___ No heavy lifting, pushing or straining. _x__ Other: _Follow all verbal and written orders given by Dr. Hensley.__ BATHING/SHOWERING: ___ Sponge bathe until office visit. ___ Sitting in tub of warm water may relieve discomfort. _x__ May tub bathe _x__ May shower ___ On day after surgery sit in tub of warm water to soak off dressing. DRESSING: ___ Keep operative area dry and clean for ___ ___ Check the operative area for signs of bleeding. Apply pressure to the bleeding site if necessary and call your physician. ___ Change dressing as necessary using sterile dressing material or bandaid. ___ Reinforce dressing as necessary. ___ Change and care for wound as follows: ___ ___ Wear bra for ___ days following breast surgery for comfort. ___ Change drip pad as needed. ___ Wear scrotal support for comfort. WATCH FOR SIGNS OF INFECTION: (Usually appears 36-48 hours after surgery) Increased temperature (101 degrees Fahrenheit or higher) Redness or swelling Increased pain Foul odor or drainage. If you have any questions, please call your doctor at the number listed on your follow up instructions. Follow all instructions given to you by your physician. Please complete and return the survey you will be receiving in the mail to help us better serve our patients. Form: [id number]) R: 07/2003/15/2021 10:22:46 9 - AO Minor Esophagogastroduodenoscopy (06/24)(CUSTOM) Esophagogastroduodenoscopy This is an endoscopic procedure (a procedure that uses a device like a flexible telescope) that allows your caregiver to view the upper stomach and small bowel. This test allows your caregiver to look at the esophagus. The esophagus carries food from your mouth to your stomach. They can also look at your duodenum. This is the first part of the small intestine that attaches to the stomach. This test is used to detect problems in the bowel such as ulcers and inflammation. MEANING OF TEST Your caregiver will go over the test results with you and discuss the importance and meaning of your results, as well as treatment options and the need for additional tests if necessary. OBTAINING THE TEST RESULTS Your caregiver s office will call you with the results of the test. POST SEDATION INSTRUCTIONS Rest at home today. Since your coordination may be impaired, be cautious on stairways, do not drive any vehicle or operate any heavy machinery, or use any sharp instruments for the remainder of the day. Do not drink any alcoholic beverages or make any major decisions for 24 hours. POST PROCEDURE INSTRUCTIONS Progress slowly with full liquids then resume previous diet and medications. Belching or passing of gas is to be expected. Notify the physician if you have severe chest pain, fever, or if difficulty when swallowing persists. 06/21/13 Custom 03/15/2021 10:21:45 Colonoscopy, Adult, Care After Colonoscopy, Adult, Care After This sheet gives you information about how to care for yourself after your procedure. Your health care provider may also give you more specific instructions. If you have problems or questions, contact your health care provider. What can I expect after the procedure? After the procedure, it is common to have: A small amount of blood in your stool for 24 hours after the procedure. Some gas. Mild abdominal cramping or bloating. Follow these instructions at home: General instructions For the first 24 hours after the procedure: ?Do not drive or use machinery. ?Do not sign important documents. ?Do not drink alcohol. ?Do your regular daily activities at a slower pace than normal. ?Eat soft, szhp-zf-adwdgf foods. Take vprq-cfq-evstgcf or prescription medicines only as told by your health care provider. Relieving cramping and bloating Try walking around when you have cramps or feel bloated. Apply heat to your abdomen as told by your health care provider. Use a heat source that your healthcare provider recommends, such as a moist heat pack or a heating pad. ?Place a towel between your skin and the heat source. ?Leave the heat on for 20 30 minutes. ?Remove the heat if your skin turns bright red. This is especially important if you are unable to feel pain, heat, or cold. You may have a greater risk of getting burned. Eating and drinking Drink enough fluid to keep your urine pale yellow. Resume your normal diet as instructed by your health care provider. Avoid heavy or fried foods thatare hard to digest. Avoid drinking alcohol for as long as instructed by your health care provider. Contact a health care provider if: You have blood in your stool 2 3 days after the procedure. Get help right away if: You have more than a small spotting of blood in your stool. You pass large blood clots in your stool. Your abdomen is swollen. You have nausea or vomiting. You have a fever. You have increasing abdominal pain that is not relieved with medicine. Summary After the procedure, it is common to have a small amount of blood in your stool. You may also have mild abdominal cramping and bloating. For the first 24 hours after the procedure, do not drive or use machinery, sign important documents, or drink alcohol. Contact your health care provider if you have a lot of blood in your stool, nausea or vomiting, a fever, or increased abdominal pain. This information is not intended to replace advice given to you by your health care provider. Make sure you discuss any questions you have with your health care provider. Document Released: 11/11/2004 Document Revised: 01/20/2018 Document Reviewed: 06/10/2016 [employer] Patient Education 2020 [employer]. Follow Up Care 12/11/2020 08:24:23 With:NENA HENSLEY MD Address: [phone] When: Unknown Comments:Follow-up as scheduled Follow-up as needed [facility] Evaluation + Plan note Future Appointments Appointment Date:06/04/2021 07:30:00 AM Scheduled Provider:BERNA MICHEL MD Location:[facility] Appointment Type:PC OV Controlled Medication Future Scheduled Tests Laboratory* Reticulocytes (AO) 08/17/20 * Ferritin 08/17/20 * Iron Level 08/17/20 * Complete Blood Count 08/17/20 [facility] Evaluation + Plan note Future Appointments Appointment Date:11/29/2021 07:30:00 AM Scheduled Provider:BERNA MICHEL MD Location:[facility] Appointment Type:PC OV Controlled Medication [facility] Evaluation + Plan note Future Appointments Appointment Date:07/09/2022 08:30:00 AM Scheduled Provider:BERNA MICHEL MD Location:[facility] Appointment Type:PC OV Future Scheduled Tests Laboratory* Complete Blood Count 05/15/22 * Lipid Profile 05/15/22 * Vitamin D Level 05/15/22 * Complete Metabolic Panel 05/15/22 [facility] Evaluation + Plan note Future Appointments Appointment Date:03/16/2023 08:00:00 AM Scheduled Provider: Location:[facility] Appointment Type:PC Nurse Lab Appointment Date:03/26/2023 07:00:00 AM Scheduled Provider:BERNA MICHEL MD Location:[facility] Appointment Type:PC OV Future Scheduled Tests Laboratory* Ferritin 12/26/22 * Iron Level 12/26/22 * Reticulocytes (AO) 12/26/22 * Complete Blood Count 12/26/22 * Reticulocytes - Panel 09/26/22 * Vitamin D Level 12/26/22 * Complete Metabolic Panel 12/26/22 [facility] Evaluation + Plan note Future Appointments Appointment Date:11/05/2023 07:00:00 AM Scheduled Provider:BERNA MICHEL MD Location:[facility] Appointment Type:PC OV Appointment Date:11/19/2023 07:00:00 AM Scheduled Provider:BERNA MICHEL MD Location:[facility] Appointment Type:PC OV Controlled Medication Future Scheduled Tests Laboratory* Ferritin 12/26/22 * Iron Level 12/26/22 * Reticulocytes (AO) 12/26/22 * Complete Blood Count 12/26/22 * Vitamin D Level 12/26/22 * Complete Metabolic Panel 12/26/22 Radiology* CT Angiography Chest w/ Contrast 10/28/23 * CT Sinus 03/26/23 [facility] Evaluation + Plan note Future Appointments Appointment Date:12/01/2023 11:30:00 AM Scheduled Provider:BERNA MICHEL MD Location:[facility] Appointment Type:PC OV Future Scheduled Tests Laboratory* Ferritin 12/26/22 * Iron Level 12/26/22 * Complete Blood Count 12/26/22 * Vitamin D Level 12/26/22 * Complete Metabolic Panel 12/26/22 Radiology* CT Angiography Chest w/ Contrast 10/28/23 * CT Sinus 03/26/23 [facility] Evaluation + Plan note Future Appointments Appointment Date:02/25/2024 07:30:00 AM Scheduled Provider:BERNA MICHEL MD Location:[facility] Appointment Type:PC OV Future Scheduled Tests Radiology* CT Angiography Chest w/ Contrast 10/28/23 * CT Sinus 03/26/23 [facility] Evaluation + Plan note Future Appointments Appointment Date:08/08/2024 07:00:00 AM Scheduled Provider:Osman Capps PT Location:[facility] Appointment Type:PT Outpatient Evaluation Appointment Date:10/04/2024 07:00:00 AM Scheduled Provider:BERNA MICHEL MD Location:[facility] Appointment Type:PC OV Future Scheduled Tests Laboratory* A1C Hemoglobin 07/28/24 * Complete Blood Count 07/28/24 * Lipid Profile 07/28/24 * Vitamin D Level 07/28/24 * Complete Metabolic Panel 07/28/24 Radiology* CT Angiography Chest w/ Contrast 10/28/23 [facility] Evaluation + Plan note Future Appointments Appointment Date:10/04/2024 07:00:00 AM Scheduled Provider:BERNA MICHEL MD Location:[facility] Appointment Type:PC OV Future Scheduled Tests Laboratory* A1C Hemoglobin 07/28/24 * Complete Blood Count 07/28/24 * Lipid Profile 07/28/24 * Vitamin D Level 07/28/24 * Complete Metabolic Panel 07/28/24 Radiology* CT Angiography Chest w/ Contrast 10/28/23 [facility] Evaluation + Plan note Future Appointments Appointment Date:10/04/2024 07:00:00 AM Scheduled Provider:BERNA MICHEL MD Location:[facility] Appointment Type: OV Future Scheduled Tests Radiology* CT Angiography Chest w/ Contrast 10/28/23 [facility] Evaluation note* Diagnosis Abdominal pain, left lower quadrant- Primary History of diverticulosis Personal history of other diseases of digestive system MUNOZ (dyspnea on exertion) Other dyspnea and respiratory abnormality Hypoxia Hypoxemia documented in this encounter [facility] noteNo assessment information availableBlSan Antonio Community Hospital Work Phone: Hospital course Narrative No data available for this section [facility] Hospital Discharge instructions No data available for this section [facility] Progress note No data available for this section [facility] Reason for referral (narrative)No reason for referral information available[facility] Work Phone: Summary Purpose Family History No Family History Records Found No data available for this section No data available for this section No data available for this section No Family History Records Found No data available for this section No Family History Records Found No data available for this section No data available for this section No data available for this section No data available for this section No Family History Records FoundNo Family History Records Found Advance Directives No Advanced Directives Records FoundNo Advanced Directives Records FoundNo Advanced Directives Records FoundNo Advanced Directives Records FoundNo Advanced Directives Records Found Chief Complaint and Reason for Visit Chief Complaint Admit Date CONSTIPATED NAUSEA CRAMPING VOMITING Oct 7:16am Additional Source Comments INFORMATION SOURCE (unrecogn ized section and content) DATE CREATED AUTHOR 07/25/2021 Emily england [place] DATE CREATED AUTHOR AUTHOR'S ORGANIZ ATION 11/29/2023 [facility] ([place]) DATE CREATED AUTHOR AUTHOR'S ORGANIZ ATION 07/12/2024 Emily england DATE CREATED AUTHOR AUTHOR'S ORGANIZ ATION 11/24/2024 [facility] DATE CREATED AUTHOR AUTHOR'S ORGANDIEGO ATION 12/03/2024 [facility] Care Team (unrecognized sect ion and content) Care Team Personnel Name: Radha Hand Weaver Cristina PT Position: P3 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 Advanced Member Role: Other Name: BERNA MICHEL MD Position: P4 Physician - Primary Care Med Service: Active Provider Member Role: Primary Care Physician Address: Address: [address] [place] [address] [address] [facility] [place], [place] [address] Care Team Related Persons Name: NONE, Name: NA MURPHY Name: DOMINIQUE MURPHY Address: [address] [phone] Name: ELSIETRVAISDOMINIQUE Address: [address] [phone] Name: ELSIETRAVISDOMINIQUE Address: [address] [phone] Name: ELSIETRAVISDOMINIQUE Address: Home [address] [place] [phone] [place] Patient Care team informatio n (unrecognized section and content) 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 Berna Michel MD Family Provider Active Dr. Berna Michel MD Primary Care Provider Active Team Status: Inactive Member Role/Relationship Status Dates Dr. Berna Michel MD Primary Care Provider Active Start: October 13, 2024 End: October 13, 2024 Dr. Berna Micehl MD Referring Provider Active Start: October 13, 2024 End: October 13, 2024 [place] Attending Provider Active Start: October 13, 2024 End: October 13, 2024 Source Comments (unrecognize d section and content) In the event this informatio n is protected by the Federal Confidentiality of Alcohol and Drug Abuse Patient Records regulations: The Federal rules restrict any use of the information to criminally investigate or prosecute any alcohol or drug abuse patient.[facility] Reason for Visit (unrecogniz ed section and content) Reason Comments Abdominal Pain Left side abdominal pain constant throbbing x 1 week (intermittent) Emesis and Diarrhea x 3 days (intermittently) Nausea x 3 days Goals (unrecognized section and content) Goals may be documented in a n alternate section FOR RECORDS PERTAINING TO PATIENTS WHO ARE OR HAVE BEEN ENROLLED IN A CHEMICAL DEPENDENCY/SUBSTANCEABUSE PROGRAM, SOME INFORMATION MAY BE OMITTED. This clinical summary was aggregated from multiple sources. Caution should be exercised in using it in the provision of clinical care. This summary normalizes information from multiple sources, and as a consequence, information in this document may materially change the coding, format and clinical context of patient data. In addition, data may be omitted in some cases. CLINICAL DECISIONS SHOULD BE BASED ON THE PRIMARY CLINICAL RECORDS. [employer] [facility]. provides no warranty or guarantee of the accuracy or completeness of information in this document.
[2024-12-05] MEDS: Lactated Ringers 1,000 ML 15 ML IV (07:42)
--- NOTE | 2024-12-05 08:04 | PCM.HP.STD ---
HPI - General General Date of Admission: 12/05/24 Date of Service: 12/05/24 Chief Complaint: Intermittent constipation with abdominal pain followed by occasional nausea vomiting with breakthrough heartburn HPI Narrative MILAGROS WEINBERG, is a 49 F who presents with the Chief Complaint: constipation and abdominal pain [facility] ED 6.2 wiht LLQ pain. Pt with PMHx of diverticulitis. SHe has been having nausea but no vomiting. Blood work was normal. CT with no acute abnormality. Mild diverticulosis with no evidence of diverticulitis. OV 7.3.25 Pt has a hx of intermittent constipation which has worsened in frequency over the past few months. Pt has daily bm but they are small and does not feel complete. She will have loose stools up to two times per week when she has been constipated for awhile. This is accompanied by left lower quadrant cramping and n/v. She does not take any OTC laxatives or fiber supplementation. Last colonoscopy was in 2020 with polyps. Last EGD in 2021. SHe takes PPi twice a day and has breakbothoura heartburn on occasion. [facility] Medical History H/O psoriasis Post-menopausal Wears glasses Depression Anxiety Bruising History of steroid therapy Rheumatoid arthritis DVT (deep venous thrombosis) Easy bruising Migraine headache H/O hemorrhoids History of IBS History of diverticulitis Gastric reflux Shortness of breath on exertion History of echocardiogram Hypertension Home Medications ?Medication ?Instructions ?Recorded ?Last Taken ?Type cholecalciferol (vitamin D3) 1,250 1,250 mcg PO QWEEK 10/13/24 11/28/24 History mcg (50,000 unit) capsule clonazepam 1 mg tablet 1 mg PO 4X/DAY PRN anxiety 10/13/24 12/04/24 History dicyclomine 20 mg tablet 20 mg PO TID PRN abdominal pain 10/13/24 Unknown History escitalopram oxalate 20 mg tablet 20 mg PO QDAY 10/13/24 12/04/24 History hydroxychloroquine 200 mg tablet 200 mg PO BID 10/13/24 12/04/24 History metoprolol tartrate 25 mg tablet 25 mg PO BID 10/13/24 12/05/24 History pantoprazole 40 mg tablet,delayed 40 mg PO BID 10/13/24 12/05/24 History release Allergy/AdvReac Type Severity Reaction Status Date / Time Sulfa (Sulfonamide Allergy NEEDS Verified 12/05/24 07:30 Antibiotics) FOLLOW-UP sulfamethoxazole (From Allergy NEEDS Verified 12/05/24 07:30 Bactrim) FOLLOW-UP trimethoprim (From Bactrim) Allergy NEEDS Verified 12/05/24 07:30 FOLLOW-UP Surgical History History of surgery History of nasal septoplasty History of cholecystectomy History of carpal tunnel release of both wrists Social History Smoking Status: Never smoker ROS Constitutional Constitutional: Denies fatigue, fever(s), poor appetite, weight gain or weight loss Gastrointestinal Gastrointestinal: Denies belching, bloating, change in bowel habits, change in stool character, chewing difficulty, coffee ground emesis, constipation, cramping, diarrhea, dyspepsia, dysphagia, early satiety, excessive flatus, fecal incontinence, heartburn, hematemesis, hematochezia, hemorrhoids, loose stools, melena, nausea, odynophagia, rectal bleeding, tenesmus, vomiting or weight changes Vital Signs Vital Signs Vital Signs: 12/05/24 07:32 12/05/24 07:32 Temperature 97.5 F L Temperature Source Temporal Pulse Rate 71 Respiratory Rate 20 H Respiratory Pattern Normal Blood Pressure 116/76 Blood Pressure Mean 89 Blood Pressure Source Monitor Blood Pressure Position Semi-Fowlers Blood Pressure Location Right Arm Pulse Ox 94 Oxygen Delivery Method Room Air Weight Weight: 308 lb 10.354 oz Body Mass Index (BMI) 58.3 Physical Exam Const alert, oriented x3, no apparent distress and healthy appearing General Appearance: cooperative GI normal to inspection, nondistended, normoactive bowel sounds, soft to palpation, non-tender and non-distended Percussion: normal to percussion Rectal Exam: deferred Assessment & Plan Assessment/Plan (1) GERD (gastroesophageal reflux disease): (2) Hx of colonic polyps: (3) Constipation: PLAN: Assessment and Plan Assessment and Plan (1) Constipation: Status: Acute Plan: Milagros is a 48 yo female pt with PMHXx of diverticulitis, colonic polyps and constipation here today for worsening constipation over the past few months. SHe has daily bm but are not complete. SHe will eventually have loose stools which is likely overflow. This is accompanied by LLQ cramping and n/v. SHe does not take any OTC laxatives. Last colonoscopy was in 2020 with polyps. Due to hx of polyps adn worsening constipation she will undergo repeat colonoscopy. In the interim, she will start miralax daily or every other day. Will consider Linzess pending response. Pt also with GERD on PPI twice a day with some breakthrough heartburn. She will undergo EGD as well. -EGD and colonoscopy -Start miralax -Consider Linzess -f/u after procedures (2) Hx of colonic polyps: Status: Acute (3) GERD (gastroesophageal reflux disease): Status: Acute
--- NOTE | 2024-12-05 08:19 | PRE.ANES_ITS ---
ASA Classification* ASA Classification ASA Classification: 3 Assessment & Plan Anesthesia* Anesthesia Assessment Anesthesia Assessment: Discussed sedation and/or anesthesia options, risks, benefits, and alternatives with patient/parents/legal guardian/POA. Questions invited. The patient/parents/legal guardian/POA seems to understand and agrees to proceed with anesthesia plan. Reviewed the physical assessment, medical history, allergy history and patient home medications list prior to surgery/procedure/anesthetic and documented any changes. Performed airway and anesthesia risk assessments. Anesthesia Type Anesthesia Type: MAC History Source History Obtained from:: Patient and Chart Anesthesia Focused Assessment* Temperature: 97.5 F Pulse Rate: 71 Blood Pressure: 116/76 Respiratory Rate: 20 Pulse Ox: 94 Oxygen Delivery Method: Room Air Airway Assessment Mouth opens: >3 cm Mallampati Score: III Teeth Condition: Intact Neck Range of motion (ROM): Full ROM Labs Anesthesia Preop lab: CBC CHEMISTRY COAG Pre-Assessment Diagnosis/Proposed Procedure Planned Operative Procedure(s): EGD, COLONOSCOPY Anesthesia History Anesthesia History - public health internship: Anesthesia History - public health internship Hx Hospitalization Any Problems With Anesthesia Yes: PROPOFOL-AGGITATED WITH 12/01/24 10:35 INITIAL DOSE, NEEDED MORE Cholinesterase deficiency No 12/01/24 10:35 You/Your Family Experience No 12/01/24 10:35 fever (hyperthermia) with Relationship Recent Exposure to Contagious No 12/05/24 07:32 Disease Does patient have nerve No 12/01/24 10:35 stimulator Patient instructed to have device shut off --Does patient have Pacemaker No 12/05/24 07:32 or ICD? When Was Last Pacemaker Check QUESTION #4 FULL TEXT: You/Your Family Experience fever (hyperthermia) with Anesthesia Last Oral Intake Last Oral intake: Last Oral Intake NPO since 04:30 12/05/24 07:32 Meds taken in AM with sips of Yes 12/05/24 07:32 water? 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 - public health internship: PONV - public health internship Female Yes 12/01/24 10:35 HX of Motion Sickness No 12/01/24 10:35 HX of N/V After Surgery Yes 12/01/24 10:35 Non-Smoker Yes 12/01/24 10:35 Duration of Surgery greater No 12/01/24 10:35 than 60 minutes Number of Risk Factors 3 12/01/24 10:35 PONV Score Moderate Risk 12/01/24 10:35 Height & Weight Height & Weight: Anesthesia: Height & Weight Height 5 ft 1 in 12/05/24 07:32 Weight: 140 kg 12/05/24 07:32 Body Mass Index (BMI) 58.3 12/05/24 07:32 Respiratory Assessment Respiratory Assessment - public health internship: Respiratory Tract Infection Hx - public health internship Hx Respiratory Tract Infection No 12/01/24 10:35 STOP Sleep Apnea STOP Sleep Apnea - public health internship: STOP Sleep Apnea - public health internship Hx Hypertension Yes 12/01/24 10:35 Hx Sleep Apnea No 12/01/24 10:35 CPAP BIPAP Do you snore loudly (louder No 12/01/24 10:35 than talking or can be heard Do you often feel tired/ No 12/01/24 10:35 fatigued/ sleepy during daytime? Has anyone observed you stop No 12/01/24 10:35 breathing during sleep? STOP Results Negative 12/01/24 10:35 QUESTION #5 FULL TEXT : Do you snore loudly (louder than talking or can be heard through closed doors)? 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 Specify any problems Hx of Preganancy in last 3 No 12/01/24 10:35 Months Nurse Filling Out Transfusion [place] 12/01/24 10:35 & Questions: Date: 12/01/24 12/01/24 10:35 Time: 10:46 12/01/24 10:35 Patient unable to answer at this time (ie. confused, unrespo /Reproduction History /Reproductive History - public health internship: /Reproductive Hx- public health internship Hx Now No 12/01/24 10:35 Gestational Age (in weeks): EDC: Hx Hx Para Hx Section SAB No 12/01/24 10:35 Active Medications Active Medications: Current Medications Generic Name Dose Route Start Last Admin Trade Name Freq PRN Reason Stop Dose Admin Lactated Ringer's 1,000 mls @ 15 mls/hr 12/05/24 07:15 12/05/24 07:42 IV 15 mls/hr .Q48H FIFI Administration PFSH Medical History H/O psoriasis Post-menopausal Wears glasses Depression Anxiety Bruising History of steroid therapy Rheumatoid arthritis DVT (deep venous thrombosis) Easy bruising Migraine headache H/O hemorrhoids History of IBS History of diverticulitis Gastric reflux Shortness of breath on exertion History of echocardiogram Hypertension Home Medications ?Medication ?Instructions ?Recorded ?Last Taken ?Type cholecalciferol (vitamin D3) 1,250 1,250 mcg PO QWEEK 10/13/24 11/28/24 History mcg (50,000 unit) capsule clonazepam 1 mg tablet 1 mg PO 4X/DAY PRN anxiety 0 10/13/24 12/04/24 History dicyclomine 20 mg tablet 20 mg PO TID PRN abdominal p ain 10/13/24 Unknown History escitalopram oxalate 20 mg tablet 20 mg PO QDAY 12/04/24 History hydroxychloroquine 200 mg tablet 200 mg PO BID 5 12/04/24 History metoprolol tartrate 25 mg tablet 25 mg PO BID 10/13/24 12/05/24 History pantoprazole 40 mg tablet,delayed 40 mg PO BID 5 12/05/24 History release Allergy/AdvReac Type Severity Reaction Status Date / Time Sulfa (Sulfonamide Allergy NEEDS Verified 12/05/24 07:30 Antibiotics) FOLLOW-UP sulfamethoxazole (From Allergy NEEDS Verified 12/05/24 07:30 Bactrim) FOLLOW-UP trimethoprim (From Bactrim) Allergy NEEDS Verified 12/05/24 07:30 FOLLOW-UP Surgical History History of surgery History of nasal septoplasty History of cholecystectomy History of carpal tunnel release of both wrists Social History Smoking Status: Never smoker Review of Systems (Anesthesia) ROS Narrative System reviewed and no additional complaints, except as documented. Physical Exam Const alert and oriented x3 Orientation / Consciousness: awake Resp normal respiratory effort and normal air movement Cardio regular rate and regular rhythm
--- NOTE | 2024-12-05 08:30 | EGD_PTH ---
PATIENT: MILAGROS WEINBERG LOC: EN U#:[id number] AGE/SX: 49/F ROOM: RE12/05/[address]: Dr. Jose Pettit DO : 1975 BED: DIS: 12/05/2024 SPEC #: [id number] RECD: 12/05/24 10:55 STATUS: YANA RESteve #: [id number] REA: 12/05/24 08:[address]: Jose Pettit DEPT: SURGICAL PATHOLOGY RECD BY: Kai Cabrera ENTERED: 12/05/24 11:06 SP TYPE: EGD BIOPSY OFELIA DR: Dr. Refugio Howell MD Tissues: A - Gastric mucous membrane Procedures: Immunohistochemical Stains Surgery Specimen Level IV HEADER OPERATION: Colonoscopy, EGD, biopsy PRE-OP DIAGNOSIS: Constipation, history of colonic polyps, GERD TISSUE SUBMITTED: A- Gastric body biopsy MICROSCOPIC DIAGNOSIS A. Gastric body, biopsy: Fundic and antral mucosa with chronic inflammation. IHC negative for H. pylori organisms. MICROSCOPIC DESCRIPTION Slides are reviewed. All matched controls reacted appropriately. These tests were developed and their performance characteristics determined by [facility]. They may not have been cleared or approved by the U.S. Food and Drug Administration. The FDA has determined that such clearance or approval is not necessary. The above immunohistochemical/dualISH markers are viewed by the Pathologist. GROSS DESCRIPTION A. Received in fixative is one container labeled with the patient's name and designated Gastric body biopsy. The specimen consists of two irregular fragments of light dooley soft tissue that measure 0.5 and 0.8 cm. The specimen is totally submitted in one cassette. IN 12/05/2024 CPT:38444,25526
--- NOTE | 2024-12-05 09:16 | PCM.POST.ANE ---
Anesthesia: Postop Eval I Current Vital Signs Temperature: 97.5 F Pulse Rate: 66 Blood Pressure: 105/66 Respiratory Rate: 16 Pulse Ox: 96 Oxygen Delivery Method: Room Air Assessment Airway patent: Yes Spontaneous unlabored respirations: Yes Mental status: Awake nausea: No Vomiting: No Anesthesia Complication: No Fluid Hydration Crystalloid volume administer (ml): 400 Total IV fluid infused: 400 Progress Note Anesthesia document: Postop Eval 1 completed: Yes
--- NOTE | 2024-12-05 09:20 | OP.EGD_ITS ---
Patient Name: Rain Murphy Procedure Date: 12/05/2024 8:36 AM Date of : 1975 Age: 49 Procedure: Upper GI endoscopy Indications: Epigastric abdominal pain Providers: DO Gonzalo Fu MD: Refugio Howell Medicines: Monitored Anesthesia Care Patient Profile: This is a 49 year old female. Refer to note in patient chart for documentation of history and physical. Patient has symptoms of acute left upper quadrant abdominal pain, acute epigastric abdominal pain, acute dyspepsia and acute nausea. Complications: No immediate complications. Procedure: Pre-Anesthesia Assessment: - Prior to the procedure, a History and Physical was performed, and patient medications and allergies were reviewed. The patient is competent. The risks and benefits of the procedure and the sedation options and risks were discussed with the patient. All questions were answered and informed consent was obtained. Patient identification and proposed procedure were verified by the physician in the pre-procedure area. Mental Status Examination: alert and oriented. Airway Examination: normal oropharyngeal airway and neck mobility. Respiratory Examination: clear to auscultation. CV Examination: normal. Prophylactic Antibiotics: The patient does not require prophylactic antibiotics. Prior Anticoagulants: The patient has taken no anticoagulant or antiplatelet agents except for NSAID medication. ASA Grade Assessment: II - A patient with mild systemic disease. After reviewing the risks and benefits, the patient was deemed in satisfactory condition to undergo the procedure. The anesthesia plan was to use monitored anesthesia care (MAC). Immediately prior to administration of medications, the patient was re-assessed for adequacy to receive sedatives. The heart rate, respiratory rate, oxygen saturations, blood pressure, adequacy of pulmonary ventilation, and response to care were monitored throughout the procedure. The physical status of the patient was re-assessed after the procedure. After obtaining informed consent, the endoscope was passed under direct vision. Throughout the procedure, the patient's blood pressure, pulse, and oxygen saturations were monitored continuously. The Colonoscope was introduced through the mouth, and advanced to the third part of the duodenum. Small bowel enteroscopy was deemed necessary. The upper GI endoscopy was accomplished without difficulty. The patient tolerated the procedure well. Scope In: 8:50:20 AM Scope Out: 8:54:00 AM Total Procedure Duration Time 0 hours 3 minutes 40 seconds Findings: Grade I, small (< 5 mm) varices were found in the lower third of the esophagus. Patchy mildly erythematous mucosa without bleeding was found in the gastric body. Biopsies were taken with a cold forceps for histology. Verification of patient identification for the specimen was done. Estimated blood loss was minimal. Biopsies were taken with a cold forceps for Helicobacter pylori testing. Verification of patient identification for the specimen was done. Estimated blood loss was minimal. No gross lesions were noted in the entire examined duodenum. A few small hyperplastic polyps with no stigmata of recent bleeding were found in the cardia and in the gastric fundus. Impression: - Grade I and small (< 5 mm) esophageal varices. - Erythematous mucosa in the gastric body. Biopsied. - No gross lesions in the entire examined duodenum. Recommendation: - Discharge patient to home. - Resume previous diet. - Continue present medications. - Await pathology results. Procedure Code(s): --- Professional --- 49034, Small intestinal endoscopy, enteroscopy beyond second portion of duodenum, not including ileum; with biopsy, single or multiple CPT copyright 2021 [employer]. All rights reserved. The codes documented in this report are preliminary and upon wool sacker review may be revised to meet current compliance requirements. Jose Pettit DO 12/05/2024 9:19:46 AM This report has been signed electronically. Number of Addenda: 0 Note Initiated On: 12/05/2024 8:36 AM
--- NOTE | 2024-12-05 09:20 | OP.PROVAT_ITS ---
12/05/2024 Refugio Howell Re : Upper GI endoscopy procedure for Rain Murphy Dear Dante This procedure was performed on Thursday, December 05, 2024. My impressions and recommendations are as follows: Impressions : - Grade I and small (< 5 mm) esophageal varices. - Erythematous mucosa in the gastric body. Biopsied. - No gross lesions in the entire examined duodenum. Recommendations : - Discharge patient to home. - Resume previous diet. - Continue present medications. - Await pathology results. My findings are described in the full procedure note, which is enclosed. If I can be of further assistance, please feel free to contact me at . Sincerely, oJse Pettit, 12/05/2024 9:19:46 AM This report has been signed electronically.
--- NOTE | 2024-12-05 09:22 | OP.PROVAT_ITS ---
12/05/2024 Refugio Howell Re : Colonoscopy procedure for Rain Murphy Dear Dante This procedure was performed on Thursday, December 05, 2024. My impressions and recommendations are as follows: Impressions : - Diverticulosis in the recto-sigmoid colon, in the sigmoid colon and in the descending colon. - The examination was otherwise normal on direct and retroflexion views. - No specimens collected. Recommendations : - Discharge patient to home. - Resume previous diet. - Continue present medications. - Repeat colonoscopy in 10 years for screening purposes. My findings are described in the full procedure note, which is enclosed. If I can be of further assistance, please feel free to contact me at . Sincerely, Jose Pettit, 12/05/2024 9:22:01 AM This report has been signed electronically.
--- NOTE | 2024-12-05 09:22 | OP.COLON_ITS ---
Patient Name: Rain Murphy Procedure Date: 12/05/2024 8:54 AM Date of : 1975 Age: 49 Procedure: Colonoscopy Indications: Screening for colorectal malignant neoplasm Providers: Jose Pettit DO Referring MD: Refugio Howell Medicines: Monitored Anesthesia Care Patient Profile: This is a 49 year old female. Refer to note in patient chart for documentation of history and physical. Patient has symptoms of acute left upper quadrant abdominal pain, acute epigastric abdominal pain, acute dyspepsia and acute nausea. Last Colonoscopy: none. The patient's first colonoscopy is today. Complications: No immediate complications. Procedure: Pre-Anesthesia Assessment: - Prior to the procedure, a History and Physical was performed, and patient medications and allergies were reviewed. The patient is competent. The risks and benefits of the procedure and the sedation options and risks were discussed with the patient. All questions were answered and informed consent was obtained. Patient identification and proposed procedure were verified by the physician in the pre-procedure area. Mental Status Examination: alert and oriented. Airway Examination: normal oropharyngeal airway and neck mobility. Respiratory Examination: clear to auscultation. CV Examination: normal. Prophylactic Antibiotics: The patient does not require prophylactic antibiotics. Prior Anticoagulants: The patient has taken no anticoagulant or antiplatelet agents except for NSAID medication. ASA Grade Assessment: II - A patient with mild systemic disease. After reviewing the risks and benefits, the patient was deemed in satisfactory condition to undergo the procedure. The anesthesia plan was to use monitored anesthesia care (MAC). Immediately prior to administration of medications, the patient was re-assessed for adequacy to receive sedatives. The heart rate, respiratory rate, oxygen saturations, blood pressure, adequacy of pulmonary ventilation, and response to care were monitored throughout the procedure. The physical status of the patient was re-assessed after the procedure. After I obtained informed consent, the scope was passed under direct vision. Throughout the procedure, the patient's blood pressure, pulse, and oxygen saturations were monitored continuously. The Colonoscope was introduced through the anus and advanced to the terminal ileum. The colonoscopy was performed without difficulty. The patient tolerated the procedure well. The quality of the bowel preparation was adequate. The terminal ileum, ileocecal valve, appendiceal orifice, and rectum were photographed. Scope In: 8:55:58 AM Scope Withdrawal Time 0 hours 8 minutes 7 seconds Scope Out: 9:07:39 AM Total Procedure Duration Time 0 hours 11 minutes 41 seconds Findings: The perianal and digital rectal examinations were normal. Many small and large-mouthed diverticula were found in the recto-sigmoid colon, sigmoid colon and descending colon. The exam was otherwise without abnormality on direct and retroflexion views. Non-bleeding internal hemorrhoids were found during retroflexion. The hemorrhoids were Grade III (internal hemorrhoids that prolapse but require manual reduction). Impression: - Diverticulosis in the recto-sigmoid colon, in the sigmoid colon and in the descending colon. - The examination was otherwise normal on direct and retroflexion views. - No specimens collected. Recommendation: - Discharge patient to home. - Resume previous diet. - Continue present medications. - Repeat colonoscopy in 10 years for screening purposes. Procedure Code(s): --- Professional --- 34558, Colonoscopy, flexible; diagnostic, including collection of specimen(s) by brushing or washing, when performed (separate procedure) CPT copyright 2021 [employer]. All rights reserved. The codes documented in this report are preliminary and upon women's garment fitter review may be revised to meet current compliance requirements. Jose Pettit DO 12/05/2024 9:22:01 AM This report has been signed electronically. Number of Addenda: 0 Note Initiated On: 12/05/2024 8:54 AM
--- NOTE | 2024-12-05 09:42 | PCM.POSTANE2 ---
Anesthesia Postop Eval I Sum Postop Eval Completion status Anesthesia document: Postop Eval 1 completed: Yes Anesthesia Postop Eval I Summary Anesthesia Postop Eval I Summary: Anesthesia Postop Eval I: Assessment Summary Airway patent Yes 12/05/24 09:17 [email or web address] Spontaneous unlabored Yes 12/05/24 09:17 [email or web address] respirations Mental status Awake 12/05/24 09:17 [email or web address] nausea No 12/05/24 09:17 [email or web address] Vomiting No 12/05/24 09:17 [email or web address] Anesthesia Postop Eval I: Fluid Summary Crystalloid volume administer 400 12/05/24 09:17 [email or web address] (ml) Colloids volume administered ( ml) Blood Product volume administered (ml) Total IV fluid infused 400 12/05/24 09:17 [email or web address] Anesthesia Postop Eval I: Summary Notes Anesthesia Complication No 12/05/24 09:17 [email or web address] Anesthesia Complication Comment: Post-operative progress note Anesthesia: Postop Eval II Evaluation Mental status: Awake Pain Level: 0 nausea: No Vomiting: No Complications Anesthesia Complication: No
== END 2024-12-05 09:53 | disposition home or self-care (01) ==
LOC: EN 07:09 → AC 07:10
PROVIDERS: PCP Family Medicine; Referring Provider Family Medicine; Visit Provider Internal Medicine Gastroenterology
PROC: 0DJD8ZZ Inspection of Lower Intestinal Tract, Via Natural or Artificial Opening Endoscopic (ICD-10-PCS; CPT 45378; principal; 2024-12-05 08:25)
DX: K29.50 Unspecified chronic gastritis without bleeding (principal); I85.00 Esophageal varices without bleeding; K59.00 Constipation, unspecified; K21.9 Gastro-esophageal reflux disease without esophagitis; I10 Essential (primary) hypertension; K64.8 Other hemorrhoids; Z86.718 Personal history of other venous thrombosis and embolism; K57.30 Diverticulosis of large intestine without perforation or abscess without bleeding; Z86.0100 Personal history of colon polyps, unspecified; K64.2 Third degree hemorrhoids; Z90.49 Acquired absence of other specified parts of digestive tract; Z87.19 Personal history of other diseases of the digestive system
CPT/HCPCS: 45378; 44361; 88305; 88342; J2405

== ENCOUNTER → 2025-01-03 | Outpatient (CLI) | payer BC, SELFPAY ==
--- NOTE | 2025-01-03 07:29 | US_ITS ---
PROCEDURE: ABD LIMITED W/ ELASTOGRAPHY, 01/03/2025 REASON FOR EXAM: ESOPHAGEAL VARICES COMPARISON: None TECHNIQUE: Grayscale and color Doppler imaging of the right upper quadrant was performed. Elastography was performed for non-invasive assessment of liver tissue stiffness utilizing a enVista S-shear wave imaging unit. FINDINGS: Liver: Slightly heterogeneous appearance. 17.4 cm in length. Gallbladder: Cholecystectomy. Biliary tree: CBD top-normal in caliber at 7 mm, possible post cholecystectomy effect. Pancreas: Partially obscured by shadowing bowel gas, grossly unremarkable as visualized. Right kidney: Unremarkable. 9.7 cm in length. Other: No visualized free fluid. Hepatic elastography: Number of measurements: 6. US probe: CA1-7A. EQI median: 5.5 kPa EQI median velocity: 1.35 m/s IQR/Med: 28.6% (kPa) and 14.8% (m/s). If the IQR/Med is IQR/median >30% (for kPa) or >15% in m/s, the variance in the measurements is a large and the accuracy of the measurement may be in question. US/ABD Limited w/ Elastography IMPRESSION: 1. Borderline slightly heterogeneous hepatic echotexture could indicate early s teatosis or other chronic liver disease. Correlate with clinical/laboratory evaluation. 2. Liver stiffness is 5.5 kPa. Per the below 2020 SRU criteria, this rules out compensated advanced chronic liver disease in the absence of other known clinical signs. If there are known clinical signs, furth er testing may be needed for confirmation. 3. Additional description as above. Assessment is per the Update to the SRU Liver Elastography Consensus Statement (2020) Note that the above assessment of liver fibrosis is vendor-neutral and intended for use in fibrosis related to viral etiologies and non-alcoholic fatty-liver disease (NAFLD); in causes other than viral hepat itis and NAFLD, the cutoff values are currently not well established. In some patients with NAFLD, the cutoff values for cACLD may be lower (7-9 kPa). Note also that in the setting of elevated LFTs, nonfasting or vascular congestion, the stage of lifer fibrosis may be overestimated. Previous SRU reference values: <1.37 m/s (5.7kPa): No to mild fibrosis 1.37 m/s - 2.2 m/s: Moderate to severe fibrosis >2.2 m/s (15kPa): Significant fibrosis / cirrhosis Reading Location: [id number]
--- OUTSIDE RECORDS SUMMARY | 2025-01-03 07:29 | XMS RPT_ITS | CCD ---
Author Organization [facility] Inform ion Partnership [facility] Care Team Providers Care Real Estate Development Manager Name Role Phone BERNA MICHEL MD Primary [...] Dr. Berna Michel MD Primary Care Provider Dr. Berna Michel MD Referring Provider Peace Gibbs Attending Provider [phone]. Jose Pettit DO Attending Provider Dr. Jose Pettit DO Other Provider BERNA MICHEL MD Primary Care Unavailable BERNA MICHEL MD Attending Unavailable BERNA MICHEL MD Primary Care Unavailable BERNA MICHEL MD Attending Unavailable PHIL SMITH MD Attending Unavail able BERNA MICHEL MD Primary Care Unavailable DANTE STOKES BERNA Martin Primary Care Unavailable CHAR STOKES, DR AMRY CARMEN Gómez Attending Unavailsienna MICHEL MD, BERNA Martin Primary Care Unavailable DANTE STOKES, BERNA Martin Attending Unavailable DANTE STOKES, BERNA Martin Primary Care Unavailable XOCHITL METAL DRAWER-PLANT MECHANIC, PEACE Attending Unavail able XOCHIT[employer] METAL DRAWER-PLANT MECHANIC, PEACE Attending Unavail able BERNA MICHEL MD Primary Care Unavailable BERNA MICHEL MD Primary Care Unavailable BERNA MICHEL MD Attending Unavailable DANTE STOKES, BERNA Martin Primary Care Unavailable BERNA MICHEL MD Attending Unavailable Berna Michel Referring Unavailable Friend, Jose Consulting Unavailable Friend, Jose Attending Unavailable Dante, Berna Primary Care Unavailable Dante, Berna Primary Care Unavailable Dante, Berna Referring Unavailable Friend, Jose Attending Unavailable Dante, Berna Primary Care Unavailable Sd, Peace Attending Unavailable Sd, Peace Referring Unavailable Berna Michel Primary Care Unavailable Berna Michel Referring Unavailable Sd, Peace Attending Unavailable Dante, Berna Referring Unavailable Michel, Berna Primary Care Unavailable Sd, Peace Attending Unavailable Allergies Allergy Classification Reported Allergen(s) Allergy Type Date of Onset Reaction(s) Facility (15 sources) Propofol; Translations: [propofol] Drug Allergy 07-12-19 Anxiety (finding), Intolerance, Other: See Comments [facility] Comment on above: extreme restlessness (15 sources) Sulfamethoxazole / Trimethoprim; Translations: [sulfamethoxazole-t rimethoprim] Drug Allergy 07-12-19 25 Other: See Comments [facility] (14 sources) Sulfonamides (Antibiotic); Translations: [sulfa drugs] Drug allergy [facility] Comment on above: blood blisters (2 sources) Sulfonamides (Antibiotic); Translations: [SULFA (SULFONAMIDE ANTIBIOTICS)] Drug Allergy 05-29-19 23 Rash, Unknown [facility] (1 source) Propofol; Translations: [PROPOFOL ANALOGUES] Propensity to adverse reactions to drug (disorder) 07-12-19 [facility] (1 source) Sulfamethoxazole / Trimethoprim; Translations: [SULFAMETHOXAZOLE-T RIMETHOPRIM] Drug Allergy 07-12-19 [facility] (3 sources) Sulfamethoxazole Drug Allergy 10-14-19 NEEDS FOLLOW-UP [facility] (3 sources) Sulfonamides (Antibiotic) Allergy to substance 10-14-19 NEEDS FOLLOW-UP [facility] (3 sources) Trimethoprim Drug Allergy 10-14-19 NEEDS FOLLOW-UP [facility] (1 source) Sulfamethoxazole Drug Allergy 12-06-19 [facility] (1 source) Sulfonamides (Antibiotic) Drug allergy (disorder) 12-06-19 [facility] (1 source) Trimethoprim Drug Allergy 12-06-19 [facility] Medications Current Medications Medication Drug Class(es) [...] headache, # 30 cap(s), 1 Refill(s), Pharmacy: [facility] #[id number], Benign essential hypertension Chronic migraine without aura, with intractable migraine, so stated, with status migrainosus, 158, cm, 05/21/23 7:03:00 EST, Height, kg, 05/21/23 7:03:00 EST, Dosing Weight Start Date: 05/21/23 Status: Ordered albuterol 0.83 mg/ml inhalation solution (11 sources) beta2-Adrenergic Agonist Start: 11-25-2023 albuterol (PROVENTIL) 2.5 mg /3 mL (0.083 %) nebulizer solution 2.5 mg as needed. 11/25/2023 Active Start: 11-25-2023 take 1 dose by inhal ation every six hours as needed albuterol 2.5 mg/3 mL (0.083%) inhalation solution Dose : 2.5 mg = 3 mL, Inhalation, q6h, PRN as needed for wheezing, # 1,080 mL, 3 Refill(s), Pharmacy: [facility] #[id number], Benign essential hypertension, 158, cm, 11/05/23 7:04:00 EDT, Height, kg, 11/05/23 7:04:00 EDT, Dosing Weight Start Date: 11/25/23 Status: Ordered Medication Dispense Status: Completed Quantity: 1080.0 Unit: mL Total Allowed Fills: 4 Fills Dispensed: 0 Indications: Essential (primary) hypertension; Start: 09-26-2022 take 1 dose by inhal ation every six hours as needed albuterol 2.5 mg/3 mL (0.083%) inhalation solution Dose : 2.5 mg = 3 mL, Inhalation, q6h, PRN as needed for wheezing, # 90 mL, 0 Refill(s), Pharmacy: [facility] #[id number], Benign essential hypertension, 159, cm, 09/26/22 7:30:00 EDT, Height Start Date: 09/26/22 Status: Ordered cholecalciferol 1.25 mg oral capsule (3 sources) Vitamin D Start: 10-13-2024 take 1 capsule [...] 0 Refill(s), 01/16/23 8:41:00 AM EDT, Pharmacy: [facility] #[id number], Chronic sinusitis Iron deficiency anemia, 159, cm, 12/26/22 7:26:00 EDT, Height, 149.2, kg, 12/26/22 7:26:00 EDT, Dosing Weight Start Date: 12/26/22 Stop Date: 01/16/23 Status: Ordered clonazePAM 1 mg oral tablet (18 sources) Benzodiazepine Start: 07-28-2024 End: 01-24-2025 take 1 tablet by mouth four times daily as needed for anxiety Clonazepam 1 mg tablet Active 1 mg PO 4 TIMES DAILY as needed for anxiety October 13, 2024 12:00am Start: 10-23-2023 End: 02-23-2024 clonazePAM 1 mg oral tablet Dose : 1 mg = 1 tab(s), Oral, QID, # 360 tab(s), 0 Refill(s), Pharmacy: [facility] #[id number], Anxiety, 158, cm, 11/05/23 7:04:00 EDT, Height, 154.8, kg, 11/05/23 7:04:00 EDT, Dosing Weight Start Date: 11/25/23 Stop Date: 02/23/24 Status: Ordered Start: 05-30-2022 End: 02-17-2023 clonazePAM 1 mg oral tablet Dose : 1 mg = 1 tab(s), Oral, TID, as needed, # 270 tab(s), 0 Refill(s), Pharmacy: [facility] #[id number], Anxiety, 159, cm, 09/26/22 7:30:00 EDT, Height, 147.2, kg, 09/26/22 7:30:00 EDT, Dosing Weight Start Date: 11/19/22 Stop Date: 02/17/23 Status: Ordered Start: 09-05-2021 End: 12-04-2021 clonazePAM 1 mg oral tablet Dose : 1 mg = 1 tab(s), Oral, TID, as needed, # 270 tab(s), 0 Refill(s), [facility] Anxiety, 160, cm, 06/04/21 7:27:00 EST, Height, 129.2, kg, 06/04/21 7:27:00 EST, Dosing Weight Start Date: 09/05/21 Stop Date: 12/04/21 Status: Ordered Start: 02-11-2021 End: 05-12-2021 clonazePAM 1 mg oral tablet Dose : 1 mg = 1 tab(s), Oral, TID, as needed, # 270 tab(s), 0 Refill(s), [facility] [address] Anxiety, 155, cm, 01/02/21 17:11:00 EDT, Height, 124.4, kg, 01/02/21 17:11:00 EDT, Dosing Weight Start Date: 02/11/21 Stop Date: 05/12/21 Status: Ordered dicyclomine hydrochloride 20 mg oral tablet (18 sources) Anticholinergic Start: 10-13-2024 take 1 tablet by mouth three times daily as needed for pain Dicyclomine 20 mg tablet Active 20 mg PO THREE TIMES A DAY as needed for abdominal pain October 13, 2024 12:00am Start: 11-25-2023 End: 01-24-2024 dicyclomine 20 mg oral table t Dose : 20 mg = 1 tab(s), Oral, TID, # 90 tab(s), 1 Refill(s), Pharmacy: [facility] #[id number], Benign essential hypertension Acute sinusitis, 158, cm, 11/05/23 7:04:00 EDT, Height, kg, 11/05/23 7:04:00 EDT, Dosing Weight Start Date: 11/25/23 Stop Date: 01/24/24 Status: Ordered Medication Dispense Status: Completed Quantity: 90.0 Unit: tab(s) Total Allowed Fills: 2 Fills Dispensed: 0 Indications: Acute sinusitis, unspecified; Essential (primary) hypertension; Start: 05-21-2023 End: 07-20-2023 dicyclomine 20 mg oral table t Dose : 20 mg = 1 tab(s), Oral, TID, # 90 tab(s), 1 Refill(s), [facility]: [facility][id number], Benign essential hypertension Acute sinusitis, 158, cm, 05/21/23 7:03:00 EST, Height, kg, 05/21/23 7:03:00 EST, Dosing Weight Start Date: 05/21/23 Stop Date: 07/20/23 Status: Ordered Start: 08-28-2022 End: 11-25-2022 dicyclomine 20 mg oral table t Dose : 20 mg = 1 tab(s), Oral, TID, # 90 tab(s), 1 Refill(s), Pharmacy: [facility] #[id number], Benign essential hypertension Acute sinusitis, 159, cm, 09/26/22 7:30:00 EDT, Height, kg, 09/26/22 7:30:00 EDT, Dosing Weight Start Date: 09/26/22 Stop Date: 11/25/22 Status: Ordered Start: 05-30-2022 End: 07-29-2022 dicyclomine 20 mg oral table t Dose : 20 mg = 1 tab(s), Oral, TID, # 90 tab(s), 1 Refill(s), Pharmacy: [facility] #[id number], Benign essential hypertension Acute sinusitis, 158.6, cm, 05/30/22 7:30:00 EST, Height Start Date: 05/30/22 Stop Date: 07/29/22 Status: Ordered Start: 11-12-2021 dicyclomine 10 mg oral capsule Dose : 10 mg = 1 cap(s), Oral, QID, PRN abdominal discomfort, # 120 cap(s), 0 Refill(s), Pharmacy: [facility] #[id number], 160, cm, 06/04/21 7:27:00 EST, Height Start Date: 11/12/21 Status: Ordered Start: 03-04-2021 End: 03-14-2021 dicyclomine 10 mg oral capsu le Dose : 10 mg = 1 cap(s), Oral, QID, PRN abdominal discomfort, 0 Refill(s) Start Date: 03/04/21 Stop Date: 03/14/21 Status: Ordered escitalopram 20 mg oral tablet (18 sources) Serotonin Reuptake Inhibitor Start: 09-27-2024 take 1 tablet by mouth once daily Escitalopram Oxalate 20 mg tablet Active 20 mg PO daily October 13, 2024 12:00am Start: 05-30-2020 escitalopram 2 0 mg oral tablet Dose : 20 mg = 1 tab(s), Oral, Daily, # 90 tab(s), 3 Refill(s), Pharmacy: [facility] #[id number], Depression, major, recurrent, in remission, 158, cm, 11/05/23 7:04:00 EDT, Height, kg, 11/05/23 7:04:00 EDT, Dosing Weight Start Date: 11/25/23 Status: Ordered Quantity: 90.0 Unit: tab(s) Repeat number: 4 Indications: Major depressive disorder, recurrent, in remission, unspecified; famotidine 40 mg oral tablet (1 source) Histamine-2 Receptor Antagonist Start: 12-20-2024 take 1 tablet by mouth once daily Famotidine 40 mg tablet Active 40 mg PO daily 30 December 20, 2024 12:00am hydroCHLOROthiazide 25 mg oral tablet (1 source) Thiazide Diuretic Start: 01-08-2024 hydroCHLOROthiazide 25 mg oral tablet Dose : 25 mg = 1 tab(s), Oral, qDay, # 30 tab(s), 0 Refill(s), Pharmacy: [facility] #[id number], 158, cm, 12/01/23 11:29:00 EDT, Height, kg, 12/01/23 11:29:00 EDT, Dosing Weight Start Date: 01/08/24 Status: Ordered hydrocortisone acetate 25 mg rectal suppository (1 source) Corticosteroid Start: 07-03-2022 hydrocortisone (HEMORRHOIDAL HC) 25 mg suppository insert 1 suppository rectally at bedtime for 10 NIGHTS 07/03/2022 Active hydroxychloroquine sulfate 200 mg oral tablet (19 sources) Antimalarial, Antirheumatic Agent Start: 10-13-2024 take 1 tablet by mouth twice daily Hydroxychloroquine 200 mg tablet Active 200 mg PO TWICE A DAY October 13, 2024 12:00am Start: 12-03-2020 End: 07-11-2024 hydroxychloroquine 200 mg or al tablet Dose : 200 mg = 1 tab(s), Oral, BID, 0 Refill(s) Start Date: 12/03/20 Status: Ordered Medication Dispense Status: Completed Total Allowed Fills: 1 Fills Dispensed: 0 K2-D3 5000 125 mcg (5000 int l units)-90 mcg oral capsule (5 sources) Start: 09-12-2024 K2-D3 5000 125 mcg (5000 intl units)-90 mcg oral capsule Dose = 1 cap(s), Oral, qDayM, # 60 cap(s), 0 Refill(s) Start Date: 09/12/24 Status: Ordered Medication Dispense Status: Completed Quantity: 60.0 Unit: cap(s) Total Allowed Fills: 1 Fills Dispensed: 0 Start: 09-12-2024 K2-D3 5000 125 mcg (5000 [...] qDay, # 90 tab(s), 3 Refill(s), [facility] 158, cm, 12/03/20 10:06:00 EDT, Height, kg, 12/03/20 10:06:00 EDT, Dosing Weight Start Date: 12/03/20 Stop Date: 11/28/21 Status: Ordered metoprolol tartrate 25 mg oral tablet (18 sources) beta-Adrenergic Sandoval Start: 10-13-2024 take 1 tablet by mouth twice daily Metoprolol Tartrate 25 mg tablet Active 25 mg PO TWICE A DAY October 13, 2024 12:00am Start: 05-30-2020 End: 03-03-2024 metoprolol tartrate 25 mg or al tablet Dose : 25 mg = 1 tab(s), Oral, BID, # 180 tab(s), 3 Refill(s), Pharmacy: [facility] #[id number], 158, cm, 11/05/23 7:04:00 EDT, Height, kg, 11/05/23 7:04:00 EDT, Dosing Weight Start Date: 11/25/23 Stop Date: 03/03/24 Status: Ordered Quantity: 180.0 Unit: tab(s) Repeat number: 4 ondansetron 4 mg oral tablet (6 sources) Serotonin-3 Receptor Antagonist Start: 09-12-2024 End: 09-13-2025 ondansetron 4 mg oral tablet Dose : 4 mg = 1 tab(s), Oral, q6h, PRN Nausea/Vomiting, # 20 tab(s), 0 Refill(s), 09/13/25 2:51:00 PM EDT Start Date: 09/12/24 Stop Date: 09/13/25 Status: Ordered Medication Dispense Status: Completed Quantity: 20.0 Unit: tab(s) Total Allowed Fills: 1 Fills Dispensed: 0 Start: 10-12-2021 End: 10-17-2021 take 1 tablet by mouth every eight hours Zofran ODT use ondansetron oral tablet, disintegrating Dose : 4 mg =, Oral, q8h, # 15 tab(s), 0 Refill(s), Diverticulitis Start Date: 10/12/21 Stop Date: 10/17/21 Status: Ordered pantoprazole 40 mg delayed release oral tablet (19 sources) Proton Pump Inhibitor Start: 05-30-2022 End: 05-18-2025 take 1 tablet by mouth twice daily Pantoprazole 40 mg tablet,delayed release (DR/EC) Active 40 mg PO TWICE A DAY October 13, 2024 12:00am Start: 08-29-2020 End: 05-11-2022 pantoprazole 40 mg oral ente rodney coated tablet Dose : 40 mg = 1 tab(s), Oral, BID, # 60 tab(s), 5 Refill(s), Pharmacy: [facility] #[id number], 160, cm, 06/04/21 7:27:00 EST, Height, kg, 06/04/21 7:27:00 EST, Dosing Weight Start Date: 11/12/21 Stop Date: 05/11/22 Status: Ordered phentermine hydrochloride 37.5 mg oral tablet (3 sources) Sympathomimetic Amine Anorectic Start: 10-23-2023 End: 02-23-2024 phentermine 37.5 mg oral tablet Dose : 37.5 mg = 1 tab(s), Oral, qAM, X 30 day(s), # 30 tab(s), 2 Refill(s), 02/23/24 7:35:00 AM EST, Pharmacy: [facility] #[id number], Morbid obesity with body mass index of 50 or higher, 158, cm, 11/05/23 7:04:00 EDT, Height, 154.8, kg, 11/05/23 7:04:00 EDT, Dosing Weight Start Date: 11/25/23 Stop Date: 02/23/24 Status: Ordered polyethylene glycol 3350 84892 mg powder for oral solution (1 source) [...] qWeek, # 13 cap(s), 3 Refill(s), Pharmacy: [facility] #[id number], Benign essential hypertension, 158, cm, 11/05/23 7:04:00 EDT, Height, kg, 11/05/23 7:04:00 EDT, Dosing Weight Start Date: 11/25/23 Stop Date: 11/19/24 Status: Ordered Quantity: 13.0 Unit: cap(s) Repeat number: 4 Indications: Essential (primary) hypertension; Start: 11-25-2023 End: 11-19-2024 Vitamin D3 1250 mcg (50,000 intl units) oral capsule Dose : 1,250 mcg = 1 cap(s), Oral, qWeek, # 13 cap(s), 3 Refill(s), Pharmacy: [facility] #[id number], Benign essential hypertension, 158, cm, 11/05/23 7:04:00 EDT, Height, kg, 11/05/23 7:04:00 EDT, Dosing Weight Start Date: 11/25/23 Stop Date: 11/19/24 Status: Ordered Start: 09-26-2022 End: 09-21-2023 Vitamin D3 1250 mcg (50,000 intl units) oral capsule Dose : 1,250 mcg = 1 cap(s), Oral, qWeek, # 13 cap(s), 3 Refill(s), Pharmacy: [facility] #[id number], Benign essential hypertension, 159, cm, 09/26/22 7:30:00 [...] tab(s), 0 Refill(s), DVT Treatment Dosing, Pharmacy: [facility] #[id number], 158, cm, 10/23/23 9:04:00 EDT, Height, 156, kg, 10/23/23 9:04:00 EDT, Dosing Weight Start Date: 10/28/23 Stop Date: 11/27/23 Status: Ordered ferrous gluconate 324 mg oral tablet (8 sources) Start: 10-23-2023 End: 05-23-2024 ferrous gluconate 324 mg (38 mg elemental iron) oral tablet Dose : 324 mg = 1 tab(s), Oral, BID, # 180 tab(s), 1 Refill(s), Pharmacy: [facility] #[id number], Chronic sinusitis Iron deficiency anemia, 158, cm, [...] BID, # 180 tab(s), 1 Refill(s), Pharmacy: [facility] #[id number], Chronic sinusitis Iron deficiency anemia, 159, cm, 12/26/22 7:26:00 EDT, Height, kg, 12/26/22 7:26:00 EDT, Dosing Weight Start Date: 12/26/22 Stop Date: 06/24/23 Status: Ordered Problems Active Problems Problem Classification Problem Date Documented Da te Episodic/Chronic Anxiety disorders (20 sources) Anxiety; Translations: [Generalized anxiety disorder] 11-25-2018 Chronic Deficiency and other anemia (10 sources) Iron deficiency anemia 12-26-2022 Episodic Deficiency and other anemia (8 sources) Anemia 11-05-2023 Episodic Disorders of lipid metabolism (20 sources) Hypercholesterolemia; Translations: [Mixed hyperlipidemia] Onset: 3 10-26-2014 Chronic Esophageal disorders (20 sources) Gastroesophageal reflux disease; Translations: [Gastro-esophageal reflux disease without esophagitis] Onset: 5 10-26-2014 Chronic Essential hypertension (20 sources) Benign essential hypertension; Translations: [Hypertensive disorder] Onset: 3 12-21-2018 Chronic Gastrointestinal hemorrhage (1 source) Hemorrhage of rectum and anus; Translations: [Hemorrhage of anus and rectum] Onset: 3 Episodic Headache; including migraine (14 sources) Refractory migraine without aura 11-25-2018 Chronic Immunizations and screening for infectious disease (2 sources) Encounter for screening for infections with a predominantly sexual mode of transmission; Translations: [Encounter for screening for infections with a predominantly sexual mode of transmission] Onset: 5 Episodic Mood disorders (20 sources) Depressive disorder; Translations: [Major depressive disorder] Onset: 5 10-26-2014 Chronic Nutritional deficiencies (10 sources) Vitamin D deficiency 09-26-2022 Chronic Other and unspecified benign neoplasm (6 sources) History of adenomatous polyp of colon 07-28-2024 Episodic Other and unspecified benign neoplasm (7 sources) History of polyp of colon; Translations: [History of colonic polyps] 10-13-2024 Episodic Other female genital disorders (2 sources) Pain in female genitalia on intercourse 12-13-2024 Chronic Other gastrointestinal disorders (20 sources) Irritable bowel syndrome 11-25-2018 Chronic Other gastrointestinal disorders (1 source) H/O: gastrointestinal disease; Translations: [Personal history of other diseases of the digestive system] 07-11-2024 Episodic Other gastrointestinal disorders (1 source) Personal history of other diseases of the digestive system; Translations: [History of diverticulosis] Onset: 5 Episodic Other gastrointestinal disorders (7 sources) Constipation; Translations: [Constipation, unspecified] 10-13-2024 Episodic Other gastrointestinal disorders (2 sources) Pelvic mass 12-13-2024 Episodic Other gastrointestinal disorders (2 sources) Constipation, unspecified; Translations: [Constipation, unspecified] Onset: 5 Episodic Other inflammatory condition of skin (9 sources) Psoriasis 03-26-2023 Chronic Other lower respiratory disease (14 sources) Snoring 03-04-2021 Episodic Other lower respiratory disease (1 source) Dyspnea; Translations: [Dyspnea, unspecified] Onset: 4 Episodic Other lower respiratory disease (9 sources) Dyspnea on exertion; Translations: [Other forms of dyspnea] 11-05-2023 Episodic Other lower respiratory disease (8 sources) Wheezing 11-05-2023 Episodic Other lower respiratory disease (1 source) Hypoxia; Translations: [Hypoxemia] 07-11-2024 Episodic Other lower respiratory disease (1 source) Other forms of dyspnea; Translations: [MUNOZ (dyspnea on exertion)] Onset: Episodic Other lower respiratory disease (1 source) Hypoxemia; Translations: [Hypoxia] Onset: 5 Episodic Other nutritional; endocrine; and metabolic disorders (11 sources) Morbid obesity 05-30-2022 Chronic Other screening for suspected conditions (not mental disorders or infectious disease) (14 sources) D-dimer above reference range; Translations: [Encounter for screening for malignant neoplasm of cervix] Onset: 5 10-28-2023 Episodic Other upper respiratory infections (10 sources) Chronic sinusitis 12-26-2022 Chronic Other upper respiratory infections (11 sources) Acute sinusitis 05-30-2022 Episodic Pleurisy; pneumothorax; pulmonary collapse (8 sources) Atelectasis 11-05-2023 Episodic Rheumatoid arthritis and related disease (2 sources) Rheumatoid arthritis, unspecified; Translations: [Rheumatoid arthritis, unspecified] Onset: 3 Chronic Unclassified (14 sources) Blood clot (morphologic abnormality) 10-26-2014 Comment on above: right foot Unclassified (6 sources) Pain of knee region 07-28-2024 Unclassified (8 sources) Patient encounter status 07-28-2024 Unclassified (2 sources) Cancer cervix screening status 12-13-2024 Unclassified (2 sources) Personal history of colon polyps, unspecified; Translations: [Personal history of colon polyps, unspecified] Onset: Viral infection (11 sources) Disease caused by 2019-nCoV 03-08-2022 Past or Other Problems Problem Classification Problem Date Documented Da te Episodic/Chronic Abdominal pain (5 sources) Abdominal pain; Translations: [Unspecified abdominal pain] Onset: 11-21-2021 Episodic Deficiency and other anemia (2 sources) Anemia, unspecified; Translations: [Anemia, unspecified] Onset: 12-22-2022 Episodic Nausea and vomiting (15 sources) Postoperative nausea and vomiting; Translations: [Vomiting, unspecified] Onset: 07-11-2024 03-04-2021 Episodic Other gastrointestinal disorders (1 source) Diarrhea, unspecified; Translations: [Diarrhea, unspecified] Onset: 07-11-2024 Episodic Other lower respiratory disease (1 source) Shortness of breath; Translations: [Shortness of breath] Onset: 08-05-2024 Episodic Other non-traumatic joint disorders (2 sources) Pain in right knee; Translations: [Pain of right knee joint] Onset: 08-05-2024 Episodic Results Test Name Value Interpretation Reference Range Facility Gastroenterology Visit Repor ton 12-20-2024 Gastroenterology Visit Report [facility] [address] [place] [address] OFFICE VISIT Date of Service: 12/20/24 MR#: [id number] Acct: [id number] Name: RAIN MURPHY Rep #: [id number] : 1975 Provider: HECTOR [place] Age/Sex: 49/F Location: [facility] Status: Signed Intake Vital Signs 03/13/20 00:08 12/05/24 07:32 Height 5 ft 1 in 5 ft 1 in Intake Visit Reasons: TEST Chief Complaint: constipation Allergies Sulfa (Sulfonamide Antibiotics) Allergy (Verified 12/05/24 07:30) NEEDS FOLLOW-UP sulfamethoxazole (From Bactrim) Allergy (Verified 12/05/24 07:30) NEEDS FOLLOW-UP trimethoprim (From Bactrim) Allergy (Verified 12/05/24 07:30) NEEDS FOLLOW-UP Medications ???Medication ???Instructions ???Recorded ???Confirmed ???Type cholecalciferol (vitamin D3) 1,250 1,250 mcg PO QWEEK 10/13/24 09/01/05 History mcg (50,000 unit) capsule clonazepam 1 mg tablet 1 mg PO 4X/DAY PRN anxiety 5 12/20/24 History dicyclomine 20 mg tablet 20 mg PO TID PRN abdominal pain 12/20/24 History escitalopram oxalate 20 mg tablet 20 mg PO QDAY 10/13/24 12/20/24 H istory hydroxychloroquine 200 mg tablet 200 mg PO BID 10/13/24 12/20/24 Hi story metoprolol tartrate 25 mg tablet 25 mg PO BID 10/13/24 12/20/24 His tory pantoprazole 40 mg tablet,delayed 40 mg PO BID 10/13/24 12/20/24 Hi story release famotidine 40 mg tablet 40 mg PO QDAY #30 tabs 12/20/24 Rx PFSH Medical History H/O psoriasis Post-menopausal Wears glasses Depression Anxiety Bruising History of steroid therapy Rheumatoid arthritis DVT (deep venous thrombosis) Easy bruising Migraine headache H/O hemorrhoids History of IBS History of diverticulitis Gastric reflux Shortness of breath on exertion History of echocardiogram Hypertension Surgical History History of surgery History of nasal septoplasty History of cholecystectomy History of carpal tunnel release of both wrists Social History Smoking Status: Never smoker HPI HPI Chief Complaint: constipation Details: RAIN MURPHY, is a 49 F who presents to the office today for follow-up. [facility]GI established October 2023 with hx of intermittent constipation worse over the past few months. EGD 12.05.2425 Grade I and small (< 5 mm) esophageal varices. - Erythematous mucosa in the gastric body. Biopsied. - No gross lesions in the entire examined duodenum. Colonoscopy 12.05.24 - Diverticulosis in the recto-sigmoid colon, in the sigmoid colon and in the descending colon. - The examination was otherwise normal on direct and retroflexion views. - No specimens collected. OV 12.20.24 patient continues to have constipation. She has not been taking the MiraLAX daily. She has daily heartburn typically during the night. She does sleep upright. She continues with pantoprazole 40 mg twice a day and Gaviscon at night. ROS Const Constitutional: Positive for fatigue, headache(s) and weight change (weight loss); No fever(s) ENT ENT: Positive for headache(s); No difficulty swallowing Gastro GI: Positive for abdominal pain, bloating, constipation, diarrhea, heartburn, excessive flatus, Blood in stool and nausea/dyspepsia; No belching, change in bowel habits, change in stool character, coffee ground emesis, cramping, difficulty swallowing, feeling full early, incontinent of stools, Vomiting blood/hematemesis, loose stools, Black,tarry stools, pain with swallowing, vomiting or other Musc Musculoskeletal: Positive for joint pain, joint swelling, muscle cramps, stiffness and Arthritis Skin Skin: Positive for dry skin and itchy eyes; No yellowing of the eye Neuro Neurology: Positive for headache(s) Psych Psychiatric: Positive for anxiety and Positive for depression Endo Endocrine: Positive for fatigue and weight change (weight loss) Aller/Imm Allergy/Immunologic: Positive for itchy eyes Ad/Lymp Hematologic/Lymphatic: Positive for easy bruising; No easy bleeding Exam Const General: cooperative, healthy appearing and comfortable Nutritional Appearance: overweight Orientation: alert [facility] Head: normal to inspection Eyes General: appearance normal, both eyes and all related structures Neck Neck: normal visual inspection Chest Chest palpation inspection: normal inspection of the chest Resp Effort Inspection: normal respiratory effort Cardio Rate: regular rate Rhythm: regular rhythm GI Inspection: normal to inspection Auscultation: normal bowel sounds Palpation: soft, not firm, no guarding and nontender Assessment and Plan Assessment and Plan (1) (more content not included)... Normal [facility] Concessions Manager Cytology Reporton 2024 Concessions Manager Cytology Report . Pathology Reports Accession: Collected Date/Time: Received Date/Time: Pathologist: [id number] 12/13/2024 09:23 EDT 12/13/2024 18:00 EDT Concessions Manager Cytology Report SPECIMEN: Specimen Description: Liquid Prep w/ HPV Specimen: Cervical Screening or Diagnostic: Screening RELEVANT HISTORY: LMP: postmenopausal SPECIMEN ADEQUACY: SATISFACTORY FOR EVALUATION Endocervical/Transformational zone component present INTERPRETATION/RESULTS: NEGATIVE FOR INTRAEPITHELIAL LESION OR MALIGNANCY HIGH RISK HPV TESTING: HPV Screen Only, BRITTON Probe Negative HPV Screen Only, BRITTON Probe Interp Data: Molecular methodology performed on the Paytellerher System. The APTIMA HPV Screening Assay is a nucleic acid amplification test which detects fourteen high-risk HPV types (16,18,31,33,35,39,45,51,52,5 6,58,59,66 and 68). Detection of high-risk HPV (types 16,18 and 45) mRNA is dependent on the number of copies present in the specimen which may be affected by collection methods, patient factors, stage of infection and the presence of interfering substances. This assay is designed to enhance existing methods for the detection of cervical disease and should be used in conjunction with clinical information from other diagnostic and screening tests. This assay is not intended for use as a screening device for women under age 30 with normal cervical history or as a substitute for regular cervical cytology screening. If the APTIMA screening assay is positive, the HPV 16 18/45 genotype assay is performed as a follow-up test and should be interpreted in conjunction with cervical cytology test results, according to current practice guidelines. As of: 12/16/24 12:08 EDT COMMENT: This Pap Test was successfully processed and evaluated with the assistance of the [employer] AquaLifePrep Test Imaging System. Verified by Pathology report verified by [facility] Screened by: AKOSUA Electronically signed by Kimber MIN (ASCP) Sign-Out Date: 12/16/2024 12:08 Performing Lab: [facility], [address] [place] [address] Pathology Dept Pathology Reports Accession: Collected Date/Time: Received Date/Time: Pathologist: [id number] 12/13/2024 09:23 EDT 12/13/2024 18:00 EDT Disclaimer The Pap test is a screening test for cervical cancer. As evidenced by published data, it is subject to both inherent false negative and false positive results. Your patient's results should be interpreted in context with pertinent clinical history including gynecological examination. Normal [facility] US PELVIS NON-OB W/TRANSVAGI NALon 12-16-2024 US PELVIS NON-OB W/TRANSVAGINAL ORIGINAL EXAMINATION: TRANSVAGINAL PELVIC ULTRASOUND 12/16/2024 TECHNIQUE: Transvaginal pelvic ultrasound was performed. COMPARISON: CT abdomen pelvis 09/12/2024 HISTORY: ORDERING SYSTEM PROVIDED HISTORY: Reason for Exam: pelvic mass, pain with intercourse FINDINGS: Measurements: Uterus: 7.1 x 3.0 x 2.5 cm Endometrial stripe: 3.2 mm Right Ovary:Not measured. Left Ovary: 1.8 x 1.3 x 1.2 cm Ultrasound Findings: Uterus: Uterus demonstrates normal myometrial echotexture. Endometrial stripe: Endometrial stripe is within normal limits. Right Ovary: Right ovary is not diagnostically imaged. Left Ovary: Left ovary is within normal limits. There is normal venous and arterial blood flow within the visualized left ovary. Free Fluid: No evidence of free fluid. IMPRESSION: 1. Normal sonographic appearance of the uterus and left ovary. 2. Nonvisualization of the right ovary. Interpreted by: Sigifredo Kim DO Preliminary Report By: Sigifredo Kim DO Electronically signed By Sigifredo Kim DO Dictated Date: 12/16/2024 9:23:59 AM Prelim Date: 12/16/2024 9:25:41 AM Sign Date: 12/16/2024 9:25:41 AM Ordering Provider: PEACE LEUNG Normal [facility] BVPCRon 12-14-2024 Bacterial Vaginosis Negative Normal Negative [facility] Comment on above: Result Comment: Mole cular methodology performed on the compareit4me System. Performed By: #### A HEATHER DECKER, CMP, GFR, CBC, ADIFF, LIP #### [address] [address] CTVAGon 12-14-2024 Chlam Source Vaginal Normal [facility] Comment on above: Performed By: #### A HEATHER DECKER, CMP, GFR, CBC, ADIFF, LIP #### [address] [address] Chlamydia Trachomatis, TMA Negative Normal Negative [facility] Comment on above: Result Comment: Mole cular methodology performed on the compareit4me System. Performed By: #### A HEATHER DECKER, CMP, GFR, CBC, ADIFF, LIP #### [address] [place] [address] CVTVon 12-14-2024 Natacha glabrata Negative Normal Negative [facility] Comment on above: Performed By: #### A HEATHER DECKER, ELEANOR, GFR, CBC, ADIFF, LIP #### [address] [address] Natacha Species Negative Normal Negative [facility] Comment on above: Result Comment: Mole cular methodology performed on the compareit4me System. Performed By: #### A HEATHER DECKER, ELEANOR, GFR, CBC, ADIFF, LIP #### [address] [address] Trichomonas vaginalis Negative Normal Negative [facility] Comment on above: Performed By: #### A HEATHER DECKER, ELEANOR, GFR, CBC, ADIFF, LIP #### [address] [address] GCVAGon 12-14-2024 GC PCR Source Vaginal Normal [facility] Comment on above: Performed By: #### A HEATHER DECKER, ELEANOR, GFR, CBC, ADIFF, LIP #### [address] [address] Neisseria gonorrhoeae, TMA Negative Normal Negative [facility] Comment on above: Result Comment: Mole cular methodology performed on the compareit4me System. Performed By: #### A HEATHER DECKER, ELEANOR, GFR, CBC, ADIFF, LIP #### [address] [address] HPVSCon 12-14-2024 HPV Source Cervix Normal [facility] Comment on above: Order Comment: Order placed by AP_HPV_ORDER rule from [id number] Performed By: #### A HEATHER DECKER, ELEANOR, GFR, CBC, ADIFF, LIP #### [address] [address] HPV Screen Only, BRITTON Probe Negative Normal Negative [facility] Comment on above: Order Comment: Order placed by AP_HPV_ORDER rule from [id number] Result Comment: Mole cular methodology performed on the compareit4me System. The APTIMA HPV Screening Assay is a nucleic acid amplification test which detects fourteen high-risk HPV types (16,18,31,33,35,39,45,51,52,56,58,59,66 and 68). Detection of high-risk HPV (types 16,18 and 45) mRNA is dependent on the number of copies present in the specimen which may be affected by collection methods, patient factors, stage of infection and the presence of interfering substances. This assay is designed to enhance existing methods for the detection of cervical disease and should be used in conjunction with clinical information from other diagnostic and screening tests. This assay is not intended for use as a screening device for women under age 30 with normal cervical history or as a substitute for regular cervical cytology screening. If the APTIMA screening assay is positive, the HPV 16 18/45 genotype assay is performed as a follow-up test and should be interpreted in conjunction with cervical cytology test results, according to current practice guidelines. Performed By: #### A JERONIMO, MDW, CMP, GFR, CBC, ADIFF, LIP #### [address] [address] Concessions Manager Cytology Reporton 2024 Concessions Manager Cytology Report Event Display: SURINDER Chapa mmmerced This Pap Test was successfully processed and evaluated with the assistance of the Sq[employer]l ThinPrep Test Imaging System. PAKO Linda (ASCP) Kimber:VERIFY; Authored Date: [facility] Work Phone: Concessions Manager Cytology Report Event Display: SURINDER melo Pathology report verified by [facility] Screened by: AKOSUA Electronically signed by Kimber MIN (ASCP) Sign-Out Date: 12/16/2024 12:08 Performing Lab: [facility], [address] [place] [address] Pathology Dept PAKO Linda (ASCP) Kimber:VERIFY; Authored Date: [facility] Work Phone: Concessions Manager Cytology Report Event Display: SURINDER Sarmiento ecimen Specimen Description: Liquid Prep w/ HPV Specimen: Cervical Screening or Diagnostic: Screening PAKO Linda (ASCP) Kimber:VERIFY; Authored Date: [facility] Work Phone: Concessions Manager Cytology Report Event Display: GY Cl in Info LMP: postmenopausal PAKO Linda (ASCP) Kimber:VERIFY; Authored Date: [id number] [facility] Work Phone: Concessions Manager Cytology Report Event Display: GY In terp Dx NEGATIVE FOR INTRAEPITHELIAL LESION OR MALIGNANCY PAKO Linda (ASCP) Kimber:VERIFY; Authored Date: [id number] [facility] Work Phone: Concessions Manager Cytology Report Event Display: GY Di sclaimer The Pap test is a screening test for cervical cancer. As evidenced by published data, it is subject to both inherent false negative and false positive results. Your patient's results should be interpreted in context with pertinent clinical history including gynecological examination. PAKO Linda (ASCP) Kimber:VERIFY; Authored Date: [facility] Work Phone: Concessions Manager Cytology Report Event Display: GY Hi gh Risk HPV Testing HPV Screen Only, BRITTON Probe Negative HPV Screen Only, BRITTON Probe Interp Data: Molecular methodology performed on the Paytellerher System. The APTIMA HPV Screening Assay is a nucleic acid amplification test which detects fourteen high-risk HPV types (16,18,31,33,35,39,45,51,52,5 6,58,59,66 and 68). Detection of high-risk HPV (types 16,18 and 45) mRNA is dependent on the number of copies present in the specimen which may be affected by collection methods, patient factors, stage of infection and the presence of interfering substances. This assay is designed to enhance existing methods for the detection of cervical disease and should be used in conjunction with clinical information from other diagnostic and screening tests. This assay is not intended for use as a screening device for women under age 30 with normal cervical history or as a substitute for regular cervical cytology screening. If the APTIMA screening assay is positive, the HPV 16 18/45 genotype assay is performed as a follow-up test and should be interpreted in conjunction with cervical cytology test results, according to current practice guidelines. As of: 12/16/24 12:08 PAKO Vazquez (ASCP) Kimber:VERIFY; Authored Date: [id number] [facility] Work Phone: LABORATORYOrdered By: SYSTEM SYSTEM on 12-13-2024 Bacterial Vaginosis Negative 2 (12/13/24 4:18 PM) Normal Negative [facility] Comment on above: Interpretive Data: M olecular methodology performed on the Sqrrl Elton System. C. trachomatis rRNA BRITTON+probe Ql (Vag fld) Negative 4 (12/13/24 4:18 PM) Normal Negative [facility] Viro/Sero SS Comment on above: Interpretive Data: M olecular methodology performed on the Sqrrl Elton System. Natacha glabrata PCR Negative (12/13/24 4:18 PM) Normal Negative [facility] Auto Viro/Sero SS Natacha Species Negative 1 (12/13/24 4:18 PM) Normal Negative [facility] Viro/Sero SS Comment on above: Interpretive Data: M olecular methodology performed on the Sqrrl Elton System. Chlam Source Vaginal *NA* (12/13/24 4:18 PM) Invalid Interpretation Code AH Auto Viro/Sero SS GC PCR Source Vaginal *NA* (12/13/24 4:18 PM) Invalid Interpretation Code AH Auto Viro/Sero SS N. gonorrhoeae rRNA BRITTON+probe Ql (Vag fld) Negative 5 (12/13/24 4:18 PM) Normal Negative [facility] Auto Viro/Sero SS Comment on above: Interpretive Data: M olecular methodology performed on the Sqrrl Elton System. Trichomonas vaginalis Negative (12/13/24 4:18 PM) Normal Negative AH Auto Viro/Sero SS HPV E6+E7 mRNA BRITTON+probe Ql (Cvx) Negative 3 (12/13/24 9:23 AM) Normal Negative [facility] Auto Viro/Sero SS Comment on above: Interpretive Data: M olecular methodology performed on the Sqrrl Elton System. The APTIMA HPV Screening Assay is a nucleic acid amplification test which detects fourteen high-risk HPV types (16,18,31,33,35,39,45,51,52,56,58,59,66 and 68). Detection of high-risk HPV (types 16,18 and 45) mRNA is dependent on the number of copies present in the specimen which may be affected by collection methods, patient factors, stage of infection and the presence of interfering substances. This assay is designed to enhance existing methods for the detection of cervical disease and should be used in conjunction with clinical information from other diagnostic and screening tests. This assay is not intended for use as a screening device for women under age 30 with normal cervical history or as a substitute for regular cervical cytology screening. If the APTIMA screening assay is positive, the HPV 16 18/45 genotype assay is performed as a follow-up test and should be interpreted in conjunction with cervical cytology test results, according to current practice guidelines. HPV Source Cervix *NA* (12/13/24 9:23 AM) Invalid Interpretation Code AH Auto Viro/Sero SS Colonoscopy Reporton 025 Colonoscopy Report [facility] Medical Records Department [address] [place] [id number] Colonoscopy Report MR#: [id number] Acct: [id number] Name: RAIN MURPHY Rep #: [id number] : 1975 49 From: Jose Pettit DO PCP: Dr. Berna Michel MD Status:[facility] Patient Name: Rain Murphy Procedure Date: 12/05/2024 8:54 AM Date of : 1975 Age: 49 Procedure: Colonoscopy Indications: Screening for colorectal malignant neoplasm Providers: Jose Pettit DO Referring MD: Berna Michel Medicines: Monitored Anesthesia Care Patient Profile: This is a 49 year old female. Refer to note in patient chart for documentation of history and physical. Patient has symptoms of acute left upper quadrant abdominal pain, acute epigastric abdominal pain, acute dyspepsia and acute nausea. Last Colonoscopy: none. The patient's first colonoscopy is today. Complications: No immediate complications. Procedure: Pre-Anesthesia Assessment: - Prior to the procedure, a History and Physical was performed, and patient medications and allergies were reviewed. The patient is competent. The risks and benefits of the procedure and the sedation options and risks were discussed with the patient. All questions were answered and informed consent was obtained. Patient identification and proposed procedure were verified by the physician in the pre-procedure area. Mental Status Examination: alert and oriented. Airway Examination: normal oropharyngeal airway and neck mobility. Respiratory Examination: clear to auscultation. CV Examination: normal. Prophylactic Antibiotics: The patient does not require prophylactic antibiotics. Prior Anticoagulants: The patient has taken no anticoagulant or antiplatelet agents except for NSAID medication. ASA Grade Assessment: II - A patient with mild systemic disease. After reviewing the risks and benefits, the patient was deemed in satisfactory condition to undergo the procedure. The anesthesia plan was to use monitored anesthesia care (MAC). Immediately prior to administration of medications, the patient was re-assessed for adequacy to receive sedatives. The heart rate, respiratory rate, oxygen saturations, blood pressure, adequacy of pulmonary ventilation, and response to care were monitored throughout the procedure. The physical status of the patient was re-assessed after the procedure. After I obtained informed consent, the scope was passed under direct vision. Throughout the procedure, the patient's blood pressure, pulse, and oxygen saturations were monitored continuously. The Colonoscope was introduced through the anus and advanced to the terminal ileum. The colonoscopy was performed without difficulty. The patient tolerated the procedure well. The quality of the bowel preparation was adequate. The terminal ileum, ileocecal valve, appendiceal orifice, and rectum were photographed. Scope In: 8:55:58 AM Scope Withdrawal Time 0 hours 8 minutes 7 seconds Scope Out: 9:07:39 AM Total Procedure Duration Time 0 hours 11 minutes 41 seconds Findings: The perianal and digital rectal examinations were normal. Many small and large-mouthed diverticula were found in the recto-sigmoid colon, sigmoid colon and descending colon. The exam was otherwise without abnormality on direct and retroflexion views. Non-bleeding internal hemorrhoids were found during retroflexion. The hemorrhoids were Grade III (internal hemorrhoids that prolapse but require manual reduction). Impression: - Diverticulosis in the recto-sigmoid colon, in the sigmoid colon and in the descending colon. - The examination was otherwise normal on direct and retroflexion views. - No specimens collected. Recommendation: - Discharge patient to home. - Resume previous diet. - Continue present medications. - Repeat colonoscopy in 10 years for screening purposes. Procedure Code(s): --- Professional --- 07220, Colonoscopy, flexible; diagnostic, including collection of specimen(s) by brushing or washing, when performed (separate procedure) CPT copyright 2021 [employer]. All rights reserved. The codes documented in this report are preliminary and upon logistics coordinator review may be revised to meet current compliance requirements. Jose Pettit DO 12/05/2024 9:22:01 AM This report has been signed electronically. Number of Addenda: 0 Note Initiated On: 12/05/2024 8:54 AM 12/05/24921 Date Jose Pettit DO Cosigner Signature: Date (if indicated) CC: Dr. Berna Michel MD; Jose Pettit DO Date Dictated: 12/05/2454 Date Transcribed: Automatic Dispenser Mechanic: AYAAN Signed Normal [facility] EGD Reporton 12-05-2024 EGD Report [facility] Medical Records Department [address] [place] [address] EGD Report MR#: [id number] Acct: [id number] Name: RAIN MURPHY Rep #: [id number] : 1975 49 From: Joes Pettit DO PCP: Dr. Berna Michel MD Status:REG [facility] Patient Name: Rain Murphy Procedure Date: 12/05/2024 8:36 AM Date of : 1975 Age: 49 Procedure: Upper GI endoscopy Indications: Epigastric abdominal pain Providers: Jose Pettit DO Referring MD: Berna Michel Medicines: Monitored Anesthesia Care Patient Profile: This is a 49 year old female. Refer to note in patient chart for documentation of history and physical. Patient has symptoms of acute left upper quadrant abdominal pain, acute epigastric abdominal pain, acute dyspepsia and acute nausea. Complications: No immediate complications. Procedure: Pre-Anesthesia Assessment: - Prior to the procedure, a History and Physical was performed, and patient medications and allergies were reviewed. The patient is competent. The risks and benefits of the procedure and the sedation options and risks were discussed with the patient. All questions were answered and informed consent was obtained. Patient identification and proposed procedure were verified by the physician in the pre-procedure area. Mental Status Examination: alert and oriented. Airway Examination: normal oropharyngeal airway and neck mobility. Respiratory Examination: clear to auscultation. CV Examination: normal. Prophylactic Antibiotics: The patient does not require prophylactic antibiotics. Prior Anticoagulants: The patient has taken no anticoagulant or antiplatelet agents except for NSAID medication. ASA Grade Assessment: II - A patient with mild systemic disease. After reviewing the risks and benefits, the patient was deemed in satisfactory condition to undergo the procedure. The anesthesia plan was to use monitored anesthesia care (MAC). Immediately prior to administration of medications, the patient was re-assessed for adequacy to receive sedatives. The heart rate, respiratory rate, oxygen saturations, blood pressure, adequacy of pulmonary ventilation, and response to care were monitored throughout the procedure. The physical status of the patient was re-assessed after the procedure. After obtaining informed consent, the endoscope was passed under direct vision. Throughout the procedure, the patient's blood pressure, pulse, and oxygen saturations were monitored continuously. The Colonoscope was introduced through the mouth, and advanced to the third part of the duodenum. Small bowel enteroscopy was deemed necessary. The upper GI endoscopy was accomplished without difficulty. The patient tolerated the procedure well. Scope In: 8:50:20 AM Scope Out: 8:54:00 AM Total Procedure Duration Time 0 hours 3 minutes 40 seconds Findings: Grade I, small (< 5 mm) varices were found in the lower third of the esophagus. Patchy mildly erythematous mucosa without bleeding was found in the gastric body. Biopsies were taken with a cold forceps for histology. Verification of patient identification for the specimen was done. Estimated blood loss was minimal. Biopsies were taken with a cold forceps for Helicobacter pylori testing. Verification of patient identification for the specimen was done. Estimated blood loss was minimal. No gross lesions were noted in the entire examined duodenum. A few small hyperplastic polyps with no stigmata of recent bleeding were found in the cardia and in the gastric fundus. Impression: - Grade I and small (< 5 mm) esophageal varices. - Erythematous mucosa in the gastric body. Biopsied. - No gross lesions in the entire examined duodenum. Recommendation: - Discharge patient to home. - Resume previous diet. - Continue present medications. - Await pathology results. Procedure Code(s): --- Professional --- 48506, Small intestinal endoscopy, enteroscopy beyond second portion of duodenum, not including ileum; with biopsy, single or multiple CPT copyright 2021 [employer]. All rights reserved. The codes documented in this report are preliminary and upon logistics coordinator review may be revised to meet current compliance requirements. Jose Pettit DO 12/05/2024 9:19:46 AM This report has been signed electronically. Number of Addenda: 0 Note Initiated On: 12/05/2024 8:36 AM 12/05/24918 Date Jose Pettit DO Cosigner Signature: Date (if indicated) CC: Dr. Berna Michel MD; Jose Pettit DO Date Dictated: 12/05/24835 Date Transcribed: Automatic Dispenser Mechanic: AYAAN Signed Normal [facility] Immunohistochemical Stainson 12-05-2024 Immunohistochemical Stains ----- Patient Age/Sex Location Account Attending Physician ----- RAIN MURPHY 49/F EN [id number] Jose Pettit DO ----- Specimen: [id number] Received: 12/05/24 Status: YANA Romargarita Num: [id number] Spec Type: EGD BIOPSY Subm Dr: Jose Pettit DO HEADER OPERATION: Colonoscopy, EGD, biopsy PRE-OP DIAGNOSIS: Constipation, history of colonic polyps, GERD TISSUE SUBMITTED: A- Gastric body biopsy ----- MICROSCOPIC DIAGNOSIS A. Gastric body, biopsy: Fundic and antral mucosa with chronic inflammation. IHC negative for H. pylori organisms. MICROSCOPIC DESCRIPTION Slides are reviewed. All matched controls reacted appropriately. These tests were developed and their performance characteristics determined by [facility]. They may not have been cleared or approved by the U.S. Food and Drug Administration. The FDA has determined that such clearance or approval is not necessary. The above immunohistochemical/dualISH markers are viewed by the Pathologist. GROSS DESCRIPTION A. Received in fixative is one container labeled with the patient's name and designated "Gastric body biopsy." The specimen consists of two irregular fragments of light dooley soft tissue that measure 0.5 and 0.8 cm. The specimen is totally submitted in one cassette. [place] 12/05/2024 CPT:56063,40485 ----- Patient Age/Sex Location Account Attending Physician ----- RAIN MURPHY 49/F EN [id number] Jose Pettit, DO ----- Signed (signature on file) Dr. Jessa Berry MD 12/19/24 1604 ----- Normal [facility] Comment on above: Performed By: #### P VALERIO #### [facility] [address] [place], [place], [id number] MR/OP.PROVATojeffrey 12-05-2024 MR/OP.[facility] Medical Records Department [address] [place] [address] [facility] Mason Hospitalation Physician Letter MR#: [id number] Acct: [id number] Name: RAIN MURPHY Rep #: [id number] : 1975 49 From: Jose Pettit DO PCP: Dr. Berna Michel MD Status:[facility] 12/05/2024 Berna Michel Re : Colonoscopy procedure for Rain Murphy Dear Dante This procedure was performed on Thursday, December 05, 2024. My impressions and recommendations are as follows: Impressions : - Diverticulosis in the recto-sigmoid colon, in the sigmoid colon and in the descending colon. - The examination was otherwise normal on direct and retroflexion views. - No specimens collected. Recommendations : - Discharge patient to home. - Resume previous diet. - Continue present medications. - Repeat colonoscopy in 10 years for screening purposes. My findings are described in the full procedure note, which is enclosed. If I can be of further assistance, please feel free to contact me at . Sincerely, Jose Pettit DO 12/05/2024 9:22:01 AM This report has been signed electronically. 12/05/24921 Date Jose Bauman Signature: Date (if indicated) CC: Dr. Berna Michel MD; Jose Pettit DO Date Dictated: 12/05/24 0854 Date Transcribed: Automatic Dispenser Mechanic: AYAAN Signed [facility] MR/OP.[facility] Medical Records Department [address] [facility] [place] [address] Provation Physician Letter MR#: [id number] Acct: [id number] Name: RAIN MURPHY Rep #: [id number] : 1975 49 From: Jose Pettit DO PCP: Dr. Berna Michel MD Status:REG [facility] 12/05/2024 Berna Michel Re : Upper GI endoscopy procedure for Rain Murphy Dear Dante This procedure was performed on Thursday, December 05, 2024. My impressions and recommendations are as follows: Impressions : - Grade I and small (< 5 mm) esophageal varices. - Erythematous mucosa in the gastric body. Biopsied. - No gross lesions in the entire examined duodenum. Recommendations : - Discharge patient to home. - Resume previous diet. - Continue present medications. - Await pathology results. My findings are described in the full procedure note, which is enclosed. If I can be of further assistance, please feel free to contact me at . Sincerely, Jose Pettit DO 12/05/2024 9:19:46 AM This report has been signed electronically. 12/05/24918 Date Jose Pettit DO Cosigner Signature: Date (if indicated) CC: Dr. Berna Michel MD; Jose Pettit DO Date Dictated: 12/05/24835 Date Transcribed: Automatic Dispenser Mechanic: RF Signed [facility] MR/POSTOP.[facility] 12-05-2024 MR/POSTOP[facility] Medical Records Department [address] [place] [address] Anesthesia Postop Eval I 12/05/24915 MR#: [id number] Acct: [id number] Name: RAIN MURPHY Rep #: [id number] : 1975 49 From: Talon Parmar PCP: Dr. Berna Michel MD Status:REG [facility] Y Race: C Location: [place] [address] Anesthesia: Postop Eval I Current Vital Signs Temperature: 97.5 F Pulse Rate: 66 Blood Pressure: 105/66 Respiratory Rate: 16 Pulse Ox: 96 Oxygen Delivery Method: Room Air Assessment Airway patent: Yes Spontaneous unlabored respirations: Yes Mental status: Awake nausea: No Vomiting: No Anesthesia Complication: No Fluid Hydration Crystalloid volume administer (ml): 400 Total IV fluid infused: 400 Progress Note Anesthesia document: Postop Eval 1 completed: Yes 12/05/24916 Date Talon Alcantaraignnevaeh Signature: Date CC: Signed Normal [facility] MR/HZFZEHHI8zt 12-05-2024 MR/POSTOPAN2 [facility] Medical Records Department [address] [place] [address] Anesthesia Postop Eval II 12/05/24941 MR#: [id number] Acct: [id number] Name: RAIN MURPHY Rep #: [id number] : 1975 49 From: James Rivera MD PCP: Dr. Berna Michel MD Status:REG [facility] Y Race: C Location: [place] [address] Anesthesia Postop Eval I Sum Postop Eval Completion status Anesthesia document: Postop Eval 1 completed: Yes Anesthesia Postop Eval I Summary Anesthesia Postop Eval I Summary: Anesthesia Postop Eval I: Assessment Summary Airway patent Yes 12/05/24 09:17 [email or web address] Spontaneous unlabored Yes 12/05/24 09:17 [email or web address] respirations Mental status Awake 12/05/24 09:17 [email or web address] nausea No 12/05/24 09:17 [email or web address] Vomiting No 12/05/24 09:17 [email or web address] Anesthesia Postop Eval I: Fluid Summary Crystalloid volume administer 400 12/05/24 09:17 [email or web address] (ml) Colloids volume administered ( ml) Blood Product volume administered (ml) Total IV fluid infused 400 12/05/24 09:17 [email or web address] Anesthesia Postop Eval I: Summary Notes Anesthesia Complication No 12/05/24 09:17 [email or web address] Anesthesia Complication Comment: Post-operative progress note Anesthesia: Postop Eval II Evaluation Mental status: Awake Pain Level: 0 nausea: No Vomiting: No Complications Anesthesia Complication: No 12/05/24 0942 Date James Rivera MD Cosigner Signature: Date CC: Signed Normal [facility] MR/PATFROYLAN 12-01-2024 MR/PAT.[facility] Medical Records Department [address] [place] [address] PAT - Anesthesia 12/01/24 1348 MR#: [id number] Acct: [id number] Name: RAIN MURPHY Rep #: [id number] : 1975 49 From: James Rivera MD PCP: Dr. 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: PONV - carpet floor layer apprentice Female Yes 12/01/24 10:35 HX of Motion [...] 03/13/20 00:08 Respiratory Assessment Respiratory Assessment - carpet floor layer apprentice: Respiratory Tract Infection Hx - carpet floor layer apprentice Hx Respiratory Tract Infection No 12/01/24 10:35 STOP Sleep Apnea STOP Sleep Apnea - carpet floor layer apprentice: STOP Sleep Apnea - carpet floor layer apprentice Hx Hypertension Yes 12/01/24 10:35 Hx Sleep [...] 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: Tobacco Use History - 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 Specify any problems Hx of Preganancy in last 3 No 12/01/24 10:35 Months Nurse Filling Out Transfusion [facility] 12/01/24 10:35 Questions: Date: 12/01/24 12/01/24 10:35 Time: 10:46 12/01/24 10:35 Patient unable to answer at this time (ie. 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: /Reproductive Hx- carpet floor layer apprentice Hx Now No 12/01/24 10:35 Gestational Age (in weeks): EDC: Hx Hx Para Hx Section SAB No 12/01/24 10:35 [facility] Medical History (Updated 12/01/24 @ 10:53 by [...] 25 mg (more content not included)... Normal [facility] Gastroenterology Visit Repor ton 10-13-2024 Gastroenterology Visit Report [facility] Gastroenterology [address] [place] [address] OFFICE VISIT Date of Service: 10/13/24 MR#: [id number] Acct: [id number] Name: RAIN MURPHY Rep #: [id number] : 1975 Provider: HECTOR [place] Age/Sex: 48/F Location[place] [facility] [place] Status: Signed Intake Vital Signs 03/13/20 00:08 [...] to the office today for establishment with [facility] ED 6.2.25 wiht LLQ pain. Pt [...] after procedu (more content not included)... Normal [facility] .Auto Diffon 10-03-2024 Basophil, Absolute 0.0 10 3/mcL Normal 0.0-0.3 [facility] Comment on above: Performed By: #### A DIFF, VIDH, ANEU, CBC, GFR, LIPID, CMP, A1C #### [address] [address] Basophils/100 WBC (Bld) 0.5 % Normal 0.0-2.5 [facility] Comment on above: Performed By: #### A DIFF, VIDH, ANEU, CBC, GFR, LIPID, CMP, A1C #### [address] [address] Eosinophil, Absolute 0.5 10 3/mcL Normal 0.0-0.7 [facility] Comment on above: Performed By: #### A DIFF, VIDH, ANEU, CBC, GFR, LIPID, CMP, A1C #### [address] [address] Eosinophils/100 WBC (Bld) 6.6 % High 0.0-6.0 [facility] Comment on above: Performed By: #### A DIFF, VIDH, ANEU, CBC, GFR, LIPID, CMP, A1C #### [address] [address] Lymphocyte, Absolute 1.7 10 3/mcL Normal 0.9-4.3 [facility] Comment on above: Performed By: #### A DIFF, VIDH, ANEU, CBC, GFR, LIPID, CMP, A1C #### [address] [address] Lymphocytes/100 WBC (Bld) 24.2 % Normal 20.0-40.0 [facility] Comment on above: Performed By: #### A DIFF, VIDH, ANEU, CBC, GFR, LIPID, CMP, A1C #### [address] [address] Monocyte, Absolute 0.5 10 3/mcL Normal 0.1-1.4 [facility] Comment on above: Performed By: #### A DIFF, VIDH, ANEU, CBC, GFR, LIPID, CMP, A1C #### [address] [address] Monocytes/100 WBC (Bld) 6.3 % Normal 2.0-13.0 [facility] Comment on above: Performed By: #### A DIFF, VIDH, ANEU, CBC, GFR, LIPID, CMP, A1C #### [place] [address] [place], [place] [address] Neutrophils/100 WBC (Bld) 62.4 % Normal 50.0-75.0 [facility] Comment on above: Performed By: #### A DIFF, VIDH, ANEU, CBC, GFR, LIPID, CMP, A1C #### [address] [address] .GFRon 10-03-2024 Estimated Glomerular Filtration Rate 68 ml/min/1.73sqm Normal [facility] Comment on above: Result Comment: Stages of [...] calculate the eGFR results. Performed By: #### A HEATHER DECKER, ELEANOR, GFR, CBC, ADIFF, LIP #### [address] [address] .NEUABSon 10-03-2024 Neutrophil, Absolute 4.5 10 3/mcL Normal 2.3-8.1 [facility] Comment on above: Performed By: #### A HEATHER DECKER, CMP, GFR, CBC, ADIFF, LIP #### [place] [address] [place], [place] [address] A1Con 10-03-2024 Glucose [Mass/Vol] 105 mg/dL Normal [facility] Comment on above: Result Comment: Deepti mated Average Glucose calculated by equation ((28.7xA1C)-46.7) Estimated average glucose (eAG) is a calculated value from Hemoglobin A1C and is sales representative trainee of the average blood glucose level in the last 2-3 month period. Normal range: less than 114 mg/dL Performed By: #### A HEATHER DECKER, CMP, GFR, CBC, ADIFF, LIP #### [address] [address] HbA1c (Bld) [Mass fraction] 5.3 % Normal 4.3-6.4 [facility] Comment on above: Performed By: #### A HEATHER DECKER, CMP, GFR, CBC, ADIFF, LIP #### [place] [id number] CBCon 10-03-2024 Erythrocyte distribution width (RBC) [Ratio] 15.0 % Normal 11.5-15.5 [facility] Comment on above: Performed By: #### A DIFF, VIDH, ANEU, CBC, GFR, LIPID, CMP, A1C #### [place] [address] Hematocrit (Bld) [Volume fraction] 41.3 % Normal 34.0-46.0 [facility] Comment on above: Performed By: #### A DIFF, VIDH, ANEU, CBC, GFR, LIPID, CMP, A1C #### [address] [address] Hgb 13.8 G/dL Normal 12.0-16.0 [facility] Comment on above: Performed By: #### A DIFF, VIDH, ANEU, CBC, GFR, LIPID, CMP, A1C #### [address] [address] MCH (RBC) [Entitic mass] 28.6 pg Normal 27.0-33.0 [facility] Comment on above: Performed By: #### A DIFF, VIDH, ANEU, CBC, GFR, LIPID, CMP, A1C #### [address] [address] MCHC 33.4 G/dL Normal 32.0-36.0 [facility] Comment on above: Performed By: #### A DIFF, VIDH, ANEU, CBC, GFR, LIPID, CMP, A1C #### [address] [address] MCV (RBC) [Entitic vol] 85.6 fL Normal 80.0-99.0 [facility] Comment on above: Performed By: #### A DIFF, VIDH, ANEU, CBC, GFR, LIPID, CMP, A1C #### [address] [address] Platelet 278 10 3/mcL Normal 150-450 [facility] Comment on above: Performed By: #### A DIFF, VIDH, ANEU, CBC, GFR, LIPID, CMP, A1C #### [address] [address] Platelet mean volume (Bld) [Entitic vol] 7.8 fL Normal 6.6-10.5 [facility] Comment on above: Performed By: #### A DIFF, VIDH, ANEU, CBC, GFR, LIPID, CMP, A1C #### [address] [address] RBC 4.82 10 6/mcL Normal 4.10-5.30 [facility] Comment on above: Performed By: #### A DIFF, VIDH, ANEU, CBC, GFR, LIPID, CMP, A1C #### [address] [address] WBC 7.2 10 3/mcL Normal 4.5-10.8 [facility] Comment on above: Performed By: #### A DIFF, VIDH, ANEU, CBC, GFR, LIPID, CMP, A1C #### [address] [address] CMPon 10-03-2024 Albumin Level 3.8 G/dL Normal 3.5-5.0 [facility] Comment on above: Performed By: #### A JERONIMO, W, CMP, GFR, CBC, ADIFF, LIP #### [address] [address] Albumin/Globulin [Mass ratio] 0.9 {ratio} Low 1.1-2.5 [facility] Comment on above: Performed By: #### A HEATHER DECKER, ELEANOR, GFR, CBC, ADIFF, LIP #### [address] [address] ALP [Catalytic activity/Vol] 109 U/L Normal 40-135 [facility] Comment on above: Performed By: #### A HEATHER DECKER, ELEANOR, GFR, CBC, ADIFF, LIP #### [place] [address] ALT [Catalytic activity/Vol] 34 U/L Normal 14-59 [facility] Comment on above: Performed By: #### A HEATHER DECKER, ELEANOR, GFR, CBC, ADIFF, LIP #### [place] [address] AST [Catalytic activity/Vol] 24 U/L Normal 10-40 [facility] Comment on above: Performed By: #### A HAETHER DECKER, ELEANOR, GFR, CBC, ADIFF, LIP #### [address] [address] Bili Total 0.6 mg/dL Normal 0.2-1.0 [facility] Comment on above: Result Comment: Use of this assay is not recommended for patients undergoing treatment with eltrombopag due to the potential for falsely elevated results. Performed By: #### A HEATHER DECKER, ELEANOR, GFR, CBC, ADIFF, LIP #### [place] [address] BUN/Creatinine Ratio 16 ratio Normal 7-27 [facility] Comment on above: Performed By: #### A HEATHER DECKER, ELEANOR, GFR, CBC, ADIFF, LIP #### [place] [address] Calcium [Mass/Vol] 9.3 mg/dL Normal 8.4-10.2 [facility] Comment on above: Performed By: #### A HEATHER DECKER, ELEANOR, GFR, CBC, ADIFF, LIP #### [address] [address] Chloride [Moles/Vol] 102 mmol/L Normal 98-107 [facility] Comment on above: Performed By: #### A HEATHER DECKER, ELEANOR, GFR, CBC, ADIFF, LIP #### [place] [address] CO2 [Moles/Vol] 30 mmol/L High 22-29 [facility] Comment on above: Performed By: #### A HEATHER DECKER, CMP, GFR, CBC, ADIFF, LIP #### [place] [address] Creatinine [Mass/Vol] 1.01 mg/dL High 0.51-0.95 [facility] Comment on above: Performed By: #### A HEATHER DECKER, ELEANOR, GFR, CBC, ADIFF, LIP #### [place] [address] Electrolyte Balance 10.0 mEq/L Normal 4.0-15.0 [facility] Comment on above: Performed By: #### A HEATHER DECKER, ELEANOR, GFR, CBC, ADIFF, LIP #### [place] [address] Globulin 4.3 G/dL Normal 2.7-4.4 [facility] Comment on above: Performed By: #### A HEATHER DECKER, ELEANOR, GFR, CBC, ADIFF, LIP #### [place] [address] Glucose [Mass/Vol] 102 mg/dL Normal 70-105 [facility] Comment on above: Performed By: #### A HEATHER DECKER, ELEANOR, GFR, CBC, ADIFF, LIP #### [place] [address] Potassium [Moles/Vol] 4.1 mmol/L Normal 3.5-5.1 [facility] Comment on above: Performed By: #### A HEATHER DECKER, CMP, GFR, CBC, ADIFF, LIP #### [address] [address] Sodium [Moles/Vol] 142 mmol/L Normal 136-145 [facility] Comment on above: Performed By: #### A HEATHER DECKER, CMP, GFR, CBC, ADIFF, LIP #### [place] [address] [place], [place] [address] Total Protein 8.1 G/dL Normal 6.4-8.2 [facility] Comment on above: Performed By: #### A HEATHER DECKER, CMP, GFR, CBC, ADIFF, LIP #### [place] [address] [place], [place] [address] Urea nitrogen [Mass/Vol] 16 mg/dL Normal 7-18 [facility] Comment on above: Performed By: #### A HEATHER DECKER, CMP, GFR, CBC, ADIFF, LIP #### [place] [address] [place], [place] [address] LABORATORYOrdered By: SYSTEM SYSTEM on 10-03-2024 25-hydroxyvitamin [...] Bilirubin [Mass/Vol] 0.6 mg/dL Normal 0.2 - 1 .0 mg/dL AO ADM SS Comment on above: Interpretive Data: U se of this assay is not recommended for patients undergoing treatment with eltrombopag due to the potential for falsely elevated results. Calcium [Mass/Vol] 9.3 mg/dL Normal 8.4 - 10. 2 mg/dL AO ADM SS Chloride [Moles/Vol] 102 mmol/L Normal 98 - 10 7 mmol/L AO ADM SS CO2 [Moles/Vol] 30 mmol/L High 22 - 29 mmol/L AO ADM SS Creatinine [Mass/Vol] 1.01 mg/dL High 0.51 - 0.95 mg/dL AO ADM SS Electrolyte Balance 10.0 mEq/L Normal 4.0 - 15 .0 mEq/L AO ADM SS Eosinophil, Absolute 0.5 103/mcL Normal 0.0 - 0 .7 10^3/mcL AO Workflow SS Eosinophils/100 WBC (Bld) [...] calculated value from Hemoglobin A1C and is sales representative trainee of the average blood glucose level in [...] - 18 mg/dL AO ADM SS Urea nitrogen/Creatinine [Mass ratio] 16 ratio Normal 7 - [...] 10-03-2024 Cholesterol [Mass/Vol] 198 mg/dL Normal 0-200 [facility] Comment on above: Result Comment: Chol esterol Reference Interval: Less than 200 Desirable 200-239 Borderline high risk 240 and above High risk Performed By: #### A HEATHER DECKER, CMP, GFR, CBC, ADIFF, LIP #### [address] [address] Cholesterol in HDL [Mass/Vol] 40 mg/dL Normal 40-60 [facility] Comment on above: Performed By: #### A HEATHER DECKER, CMP, GFR, CBC, ADIFF, LIP #### [place] [address] [place], [place] [address] Cholesterol in LDL [Mass/Vol] 139 mg/dL High 0-130 [facility] Comment on above: Performed By: #### A HEATHER DECKER, CMP, GFR, CBC, ADIFF, LIP #### [place] [address] [place], [place] [address] Triglyceride [Mass/Vol] 94 mg/dL Normal 0-150 [facility] Comment on above: Result Comment: Trig lyceride Reference Interval: Less than 150 Normal 150-199 Borderline high risk 200-499 High risk 500 or higher Very high risk Performed By: #### A HEATHER DECKER, ELEANOR, GFR, CBC, ADIFF, LIP #### [address] [address] VIDHon 10-03-2024 Vit. D 25-Hydroxy 41.6 ng/mL Normal [facility] Comment on above: Result Comment: Inte rpretive Values Based on Total 25(OH) Vitamin D: Deficient <20 ng/mL Insufficient 20 - <30 ng/mL Sufficient 30-100 ng/mL Performed By: #### A HEATHER DECKER, ELEANOR, GFR, CBC, ADIFF, LIP #### [address] [address] .Auto Diffon 09-12-2024 Basophil, Absolute 0.0 10 3/mcL Normal 0.0-0.3 [facility] Comment on above: Performed By: #### A HEATHER DECKER, ELEANOR, GFR, CBC, ADIFF, LIP #### [address] [address] Basophils/100 WBC (Bld) 0.4 % Normal 0.0-2.5 [facility] Comment on above: Performed By: #### A HEATHER DECKER, ELEANOR, GFR, CBC, ADIFF, LIP #### [address] [address] Eosinophil, Absolute 0.5 10 3/mcL Normal 0.0-0.7 [facility] Comment on above: Performed By: #### A HEATHER DECKER, ELEANOR, GFR, CBC, ADIFF, LIP #### [address] [address] Eosinophils/100 WBC (Bld) 4.9 % Normal 0.0-6.0 [facility] Comment on above: Performed By: #### A HEATHER DECKER, ELEANOR, GFR, CBC, ADIFF, LIP #### [address] [address] Lymphocyte, Absolute 1.9 10 3/mcL Normal 0.9-4.3 [facility] Comment on above: Performed By: #### A HEATHER EDCKER, CMP, GFR, CBC, ADIFF, LIP #### [address] [address] Lymphocytes/100 WBC (Bld) 21.1 % Normal 20.0-40.0 [facility] Comment on above: Performed By: #### A HEATHER DECKER, CMP, GFR, CBC, ADIFF, LIP #### [address] [address] Monocyte, Absolute 0.5 10 3/mcL Normal 0.1-1.4 [facility] Comment on above: Performed By: #### A HEATHER DECKER, CMP, GFR, CBC, ADIFF, LIP #### [address] [address] Monocytes/100 WBC (Bld) 5.7 % Normal 2.0-13.0 [facility] Comment on above: Performed By: #### A HEATHER DECKER, CMP, GFR, CBC, ADIFF, LIP #### [address] [address] Neutrophils/100 WBC (Bld) 67.9 % Normal 50.0-75.0 [facility] Comment on above: Performed By: #### A HEATHER DECKER, CMP, GFR, CBC, ADIFF, LIP #### [address] [address] .GFRon 09-12-2024 Estimated Glomerular Filtration Rate 79 ml/min/1.73sqm Normal [facility] Comment on above: Result Comment: Stages of [...] calculate the eGFR results. Performed By: #### A HEATHER DECKER, CMP, GFR, CBC, ADIFF, LIP #### [address] [address] .MDWon 09-12-2024 Monocyte Distribution Width 22.39 High 0.00-20.00 [facility] Comment on above: Result Comment: For adults in ED, MDW>20.0 may be associated with a higher risk of sepsis during the first 12hrs of hospital admission Performed By: #### A HEATHER DECKER, CMP, GFR, CBC, ADIFF, LIP #### [place] [address] .NEUABSon 09-12-2024 Neutrophil, Absolute 6.3 10 3/mcL Normal 2.3-8.1 [facility] Comment on above: Performed By: #### A HEATHER DECKER, CMP, GFR, CBC, ADIFF, LIP #### [place] [address] CBCon 09-12-2024 Erythrocyte distribution width (RBC) [Ratio] 14.7 % Normal 11.5-15.5 [facility] Comment on above: Performed By: #### A HEATHER DECKER, CMP, GFR, CBC, ADIFF, LIP #### [place] [address] Hematocrit (Bld) [Volume fraction] 39.2 % Normal 34.0-46.0 [facility] Comment on above: Performed By: #### A HEATHER DECKER, CMP, GFR, CBC, ADIFF, LIP #### [place] [address] Hgb 13.2 G/dL Normal 12.0-16.0 [facility] Comment on above: Performed By: #### A HEATHER DECKER, CMP, GFR, CBC, ADIFF, LIP #### [place] [address] MCH (RBC) [Entitic mass] 28.9 pg Normal 27.0-33.0 [facility] Comment on above: Performed By: #### A HEATHER DECKER, ELEANOR, GFR, CBC, ADIFF, LIP #### [address] [address] MCHC 33.7 G/dL Normal 32.0-36.0 [facility] Comment on above: Performed By: #### A HEATHER DECKER, ELEANOR, GFR, CBC, ADIFF, LIP #### [address] [address] MCV (RBC) [Entitic vol] 85.9 fL Normal 80.0-99.0 [facility] Comment on above: Performed By: #### A HEATHER DECKER, CMP, GFR, CBC, ADIFF, LIP #### [address] [address] Platelet 290 10 3/mcL Normal 150-450 [facility] Comment on above: Performed By: #### A HEATHER DECKER, ELEANOR, GFR, CBC, ADIFF, LIP #### [address] [address] Platelet mean volume (Bld) [Entitic vol] 7.3 fL Normal 6.6-10.5 [facility] Comment on above: Performed By: #### A HEATHER DECKER, ELEANOR, GFR, CBC, ADIFF, LIP #### [address] [address] RBC 4.56 10 6/mcL Normal 4.10-5.30 [facility] Comment on above: Performed By: #### A HEATHER DECKER, ELEANOR, GFR, CBC, ADIFF, LIP #### [address] [address] WBC 9.2 10 3/mcL Normal 4.5-10.8 [facility] Comment on above: Performed By: #### A HEATHER DECKER, ELEANOR, GFR, CBC, ADIFF, LIP #### [place] [address] CMPon 09-12-2024 Albumin Level 4.0 G/dL Normal 3.5-5.0 [facility] Comment on above: Performed By: #### A HEATHER DECKER, ELEANOR, GFR, CBC, ADIFF, LIP #### [address] [address] Albumin/Globulin [Mass ratio] 1.0 {ratio} Low 1.1-2.5 [facility] Comment on above: Performed By: #### A HEATHER DECKER, ELEANOR, GFR, CBC, ADIFF, LIP #### [address] [address] ALP [Catalytic activity/Vol] 115 U/L Normal 40-135 [facility] Comment on above: Performed By: #### A HEATHER DECKER, ELEANOR, GFR, CBC, ADIFF, LIP #### [address] [address] ALT [Catalytic activity/Vol] 31 U/L Normal 14-59 [facility] Comment on above: Performed By: #### A HEATHER DECKER, ELEANOR, GFR, CBC, ADIFF, LIP #### [address] [address] AST [Catalytic activity/Vol] 29 U/L Normal 10-40 [facility] Comment on above: Performed By: #### A HEATHER DECKER, ELEANOR, GFR, CBC, ADIFF, LIP #### [address] [address] Bili Total 0.5 mg/dL Normal 0.2-1.0 [facility] Comment on above: Result Comment: Use of this assay is not recommended for patients undergoing treatment with eltrombopag due to the potential for falsely elevated results. Performed By: #### A HEATHER DECKER, ELEANOR, GFR, CBC, ADIFF, LIP #### [address] [address] BUN/Creatinine Ratio 26 ratio Normal 7-27 [facility] Comment on above: Performed By: #### A HEATHER DECKER, ELEANOR, GFR, CBC, ADIFF, LIP #### [place] [address] Calcium [Mass/Vol] 9.6 mg/dL Normal 8.4-10.2 [facility] Comment on above: Performed By: #### A HEATHER DECKER, CMP, GFR, CBC, ADIFF, LIP #### [place] [address] Chloride [Moles/Vol] 100 mmol/L Normal 98-107 [facility] Comment on above: Performed By: #### A HEATHER DECKER, CMP, GFR, CBC, ADIFF, LIP #### [place] [address] CO2 [Moles/Vol] 26 mmol/L Normal 22-29 [facility] Comment on above: Performed By: #### A HEATHER DECKER, ELEANOR, GFR, CBC, ADIFF, LIP #### [place] [address] Creatinine [Mass/Vol] 0.89 mg/dL Normal 0.51-0.95 [facility] Comment on above: Performed By: #### A HEATHER DECKER, ELEANOR, GFR, CBC, ADIFF, LIP #### [place] [address] Electrolyte Balance 9.0 mEq/L Normal 4.0-15.0 [facility] Comment on above: Performed By: #### A HEATHER DECKER, CMP, GFR, CBC, ADIFF, LIP #### [place] [address] Globulin 4.1 G/dL Normal 2.7-4.4 [facility] Comment on above: Performed By: #### A HEATHER DECKER, CMP, GFR, CBC, ADIFF, LIP #### [place] [address] Glucose [Mass/Vol] 96 mg/dL Normal 70-105 [facility] Comment on above: Performed By: #### A HEATHER DECKER, CMP, GFR, CBC, ADIFF, LIP #### [place] [address] [place], [place] [address] Potassium [Moles/Vol] 4.1 mmol/L Normal 3.5-5.1 [facility] Comment on above: Performed By: #### A HEATHER DECKER, CMP, GFR, CBC, ADIFF, LIP #### [place] [phone] [place], [place] [address] Sodium [Moles/Vol] 135 mmol/L Low 136-145 [facility] Comment on above: Performed By: #### A HEATHER DECKER, CMP, GFR, CBC, ADIFF, LIP #### [place] [phone] [place], [place] [address] Total Protein 8.1 G/dL Normal 6.4-8.2 [facility] Comment on above: Performed By: #### A HEATHER DECKER, CMP, GFR, CBC, ADIFF, LIP #### [place] [address] [place], [place] [address] Urea nitrogen [Mass/Vol] 23 mg/dL High 7-18 [facility] Comment on above: Performed By: #### A HEATHER DECKER, CMP, GFR, CBC, ADIFF, LIP #### [place] [phone] [place], [place] [address] CT ABD/PELVIS W/ IV CONTRAST ONLYon 09-12-2024 [...] Mild diverticulosis without diverticulitis. Interpreted by: Grace Aguilar MD Preliminary Report By: Grace Aguilar MD Electronically signed By Grace Aguilar MD Dictated Date: 09/12/2024 2:32:51 PM Prelim Date: 09/12/2024 2:36:04 PM Sign Date: 09/12/2024 2:36:04 PM Ordering Provider: ROSA EPSTEIN [facility] LABORATORYOrdered By: SYSTEM SYSTEM on 09-12-2024 Albumin [...] Bilirubin [Mass/Vol] 0.5 mg/dL Normal 0.2 - 1 .0 mg/dL AO ADM SS Comment on above: Interpretive Data: U se of this assay is not recommended for patients undergoing treatment with eltrombopag due to the potential for falsely elevated results. Calcium [Mass/Vol] 9.6 mg/dL Normal 8.4 - 10. 2 mg/dL AO ADM SS Chloride [Moles/Vol] 100 mmol/L Normal 98 - 10 7 mmol/L AO ADM SS CO2 [Moles/Vol] 26 mmol/L Normal 22 - 29 mmol/L AO ADM SS Creatinine [Mass/Vol] 0.89 mg/dL Normal 0.51 - 0.95 mg/dL AO ADM SS Electrolyte Balance 9.0 mEq/L Normal 4.0 - 15 .0 mEq/L AO ADM SS Eosinophil, Absolute 0.5 103/mcL Normal 0.0 - 0 .7 10^3/mcL AO Workflow SS Eosinophils/100 WBC (Bld) [...] - 18 mg/dL AO ADM SS Urea nitrogen/Creatinine [Mass ratio] 26 ratio Normal 7 - [...] 09-12-2024 Lipase Level 27 U/L Normal 16-77 [facility] Comment on above: Performed By: #### A JERONIMO, W, CMP, GFR, CBC, ADIFF, LIP #### [place] [id number] UAon 09-12-2024 Color (U) Yellow Normal [facility] Comment on above: Performed By: #### U A #### [address] [address] Glucose (U) [Mass/Vol] Negative Normal Negative [facility] Comment on above: Performed By: #### U A #### [address] [address] Ketones Ql (U) Negative Normal Negative [facility] Comment on above: Performed By: #### U A #### [address] [address] UA Appear Clear Normal Clear [facility] Comment on above: Performed By: #### U A #### [address] [address] UA Blood Negative Normal Negative [facility] Comment on above: Performed By: #### U A #### [address] [address] UA Leuk Est Negative Normal Negative [facility] Comment on above: Performed By: #### U A #### [address] [address] UA Nitrite Negative Normal Negative [facility] Comment on above: Performed By: #### U A #### [address] [address] UA pH 6.0 Normal 5.0 - 8.0 [facility] Comment on above: Performed By: #### U A #### [place] [address] UA Protein Negative Normal Negative [facility] Comment on above: Performed By: #### U A #### [place] [address] UA Spec Grav <=1.005 Abnormal 1.015-1.02 5 [facility] Comment on above: Performed By: #### U A #### [place] [address] UA Specimen Type Void Normal [facility] Comment on above: Performed By: #### U A #### [address] [address] UA Urobilinogen 0.2 E.U./dL Normal 0.2-1.0 [facility] Comment on above: Performed By: #### U A #### [address] [address] Urobilinogen (U) [Mass/Vol] Negative Normal Negative [facility] Comment on above: Performed By: #### U A #### [address] [address] MA MAMMOGRAM SCREENING BILAT ERAL W/TOMOon 08-08-2024 MA MAMMOGRAM SCREENING BILATERAL W/MARCEL ORIGINAL FROM: [place] [address] PROCEDURE FOR: RAIN MURPHY [address] [place] [address] Home: PID#: [id number] Exam#: [id number] : 1975 Age: 48 TO: BERNA MICHEL MD [address] [place], [place] [address] Fax: NO FAX EXAMINATION: SCREENING DIGITAL BILATERAL [...] Continued screening with annual mammograms is recommended. Tyrer Cuzick risk calculations, generated with the history provided, [...] addition to annual mammographic screening per the [employer]. I have personally reviewed the [...] 08/08/2024 3:59:31 PM Ordering Provider: BERNA MICHEL Letter Of Credit Document Examiner: FIORDALIZA AGOSTO RT (R)(M) letter sent: Normal BI-RADS 1 and 2 Mammogram BI-RADS: 2 Benign Normal [facility] .Auto Diffon 07-11-2024 Basophil, Absolute 0.0 10 3/mcL Normal 0.0-0.2 [facility] Comment on above: Performed By: #### A HEATHER DECKER, CMP, GFR, CBC, ADIFF, LIP #### [address] [address] Basophils/100 WBC (Bld) 0.5 % Normal 0.0-2.5 [facility] Comment on above: Performed By: #### A HEATHER DECKER, CMP, GFR, CBC, ADIFF, LIP #### [address] [address] Eosinophil, Absolute 0.3 10 3/mcL Normal 0.0-0.7 [facility] Comment on above: Performed By: #### A MD JERONIMOW, CMP, GFR, CBC, ADIFF, LIP #### [address] [address] Eosinophils/100 WBC (Bld) 4.9 % Normal 0.0-7.0 [facility] Comment on above: Performed By: #### A MD JERONIMOW, CMP, GFR, CBC, ADIFF, LIP #### [address] [address] Lymphocyte, Absolute 1.8 10 3/mcL Normal 0.9-4.3 [facility] Comment on above: Performed By: #### A MD JERONIMOW, CMP, GFR, CBC, ADIFF, LIP #### [address] [address] Lymphocytes/100 WBC (Bld) 26.3 % Normal 20.0-40.0 [facility] Comment on above: Performed By: #### A MD JERONIMOW, CMP, GFR, CBC, ADIFF, LIP #### [address] [address] Monocyte, Absolute 0.4 10 3/mcL Normal 0.1-1.4 [facility] Comment on above: Performed By: #### A HEATHER DECKER, CMP, GFR, CBC, ADIFF, LIP #### [place] [address] [place], [place] [address] Monocytes/100 WBC (Bld) 6.3 % Normal 2.0-13.0 [facility] Comment on above: Performed By: #### A HEATHER DECKER, CMP, GFR, CBC, ADIFF, LIP #### [place] [address] [place], [place] [address] Neutrophils/100 WBC (Bld) 62.0 % Normal 50.0-75.0 [facility] Comment on above: Performed By: #### A HEATHER DECKER, CMP, GFR, CBC, ADIFF, LIP #### [address] [address] .GFRon 07-11-2024 Estimated Glomerular Filtration Rate 67 ml/min/1.73sqm Normal [facility] Comment on above: Result Comment: Stages of [...] calculate the eGFR results. Performed By: #### A HEATHER DECKER, CMP, GFR, CBC, ADIFF, LIP #### [place] [id number] [place], [place] [address] .MDWon 07-11-2024 Monocyte Distribution Width 22.46 High 0.00-20.00 [facility] Comment on above: Result Comment: For adults in ED, MDW>20.0 may be associated with a higher risk of sepsis during the first 12hrs of hospital admission Performed By: #### A HEATHER DECKER, CMP, GFR, CBC, ADIFF, LIP #### [place] [address] .NEUABSon 07-11-2024 Neutrophil, Absolute 4.2 10 3/mcL Normal 2.3-8.1 [facility] Comment on above: Performed By: #### A HEATHER DECKER, CMP, GFR, CBC, ADIFF, LIP #### [place] [address] .Urinalysis Microscopic (AO) on 07-11-2024 UA RBC 0-5 Abnormal None Seen [facility] Comment on above: Performed By: #### A HEATHER DECKER, CMP, GFR, CBC, ADIFF, LIP #### [place] [address] UA Renal Epithelial Rare Abnormal [facility] Comment on above: Performed By: #### A HEATHER DECKER, ELEANOR, GFR, CBC, ADIFF, LIP #### [place] [address] UA Squam Epithelial 0-5 Abnormal None Seen [facility] Comment on above: Performed By: #### A HEATHER DECKER, CMP, GFR, CBC, ADIFF, LIP #### [place] [address] UA WBC 0-5 Abnormal None Seen [facility] Comment on above: Performed By: #### A HEATHER DECKER, ELEANOR, GFR, CBC, ADIFF, LIP #### [place] [address] CBCon 07-11-2024 Erythrocyte distribution width (RBC) [Ratio] 15.1 % Normal 11.5-15.5 [facility] Comment on above: Performed By: #### A HEATHER DECKER, CMP, GFR, CBC, ADIFF, LIP #### [place] [address] Hematocrit (Bld) [Volume fraction] 41.2 % Normal 34.0-46.0 [facility] Comment on above: Performed By: #### A HEATHER DECKER, ELEANOR, GFR, CBC, ADIFF, LIP #### [place] [address] Hgb 13.6 G/dL Normal 12.0-16.0 [facility] Comment on above: Performed By: #### A HEATHER DECKER, ELEANOR, GFR, CBC, ADIFF, LIP #### [place] [address] MCH (RBC) [Entitic mass] 28.4 pg Normal 27.0-33.0 [facility] Comment on above: Performed By: #### A HEATHER DECKER, ELEANOR, GFR, CBC, ADIFF, LIP #### [place] [address] MCHC 33.1 G/dL Normal 32.0-36.0 [facility] Comment on above: Performed By: #### A HEATHER DECKER, ELEANOR, GFR, CBC, ADIFF, LIP #### [place] [address] MCV (RBC) [Entitic vol] 85.9 fL Normal 80.0-99.0 [facility] Comment on above: Performed By: #### A HEATHER DECKER, ELEANOR, GFR, CBC, ADIFF, LIP #### [place] [address] Platelet 277 10 3/mcL Normal 150-450 [facility] Comment on above: Performed By: #### A HEATHER DECKER, ELEANOR, GFR, CBC, ADIFF, LIP #### [place] [address] Platelet mean volume (Bld) [Entitic vol] 7.0 fL Normal 6.6-10.5 [facility] Comment on above: Performed By: #### A HEATHER DECKER, ELEANOR, GFR, CBC, ADIFF, LIP #### [place] [address] RBC 4.80 10 6/mcL Normal 4.10-5.30 [facility] Comment on above: Performed By: #### A HEATHER DECKER, ELEANOR, GFR, CBC, ADIFF, LIP #### [address] [address] WBC 6.8 10 3/mcL Normal 4.5-10.8 [facility] Comment on above: Performed By: #### A HEATHER DECKER, ELEANOR, GFR, CBC, ADIFF, LIP #### [address] [address] CMPon 07-11-2024 Albumin Level 3.7 G/dL Normal 3.5-5.0 [facility] Comment on above: Performed By: #### A HEATHER DECKER, ELEANOR, GFR, CBC, ADIFF, LIP #### [address] [address] Albumin/Globulin [Mass ratio] 0.9 {ratio} Low 1.1-2.5 [facility] Comment on above: Performed By: #### A HEATHER DECKER, ELEANOR, GFR, CBC, ADIFF, LIP #### [address] [address] ALP [Catalytic activity/Vol] 120 U/L Normal 40-135 [facility] Comment on above: Performed By: #### A HEATHER DECKER, ELEANOR, GFR, CBC, ADIFF, LIP #### [address] [address] ALT [Catalytic activity/Vol] 26 U/L Normal 14-59 [facility] Comment on above: Performed By: #### A HEATHER DECKER, ELEANOR, GFR, CBC, ADIFF, LIP #### [address] [address] AST [Catalytic activity/Vol] 23 U/L Normal 10-40 [facility] Comment on above: Performed By: #### A HEATHER DECKER, CMP, GFR, CBC, ADIFF, LIP #### [address] [address] Bili Total 0.6 mg/dL Normal 0.2-1.0 [facility] Comment on above: Result Comment: Use of this assay is not recommended for patients undergoing treatment with eltrombopag due to the potential for falsely elevated results. Performed By: #### A HEATHER DECKER, CMP, GFR, CBC, ADIFF, LIP #### [place] [address] BUN/Creatinine Ratio 17 ratio Normal 7-27 [facility] Comment on above: Performed By: #### A HEATHER DECKER, ELEANOR, GFR, CBC, ADIFF, LIP #### [place] [address] Calcium [Mass/Vol] 9.4 mg/dL Normal 8.4-10.2 [facility] Comment on above: Performed By: #### A HEATHER DECKER, ELEANOR, GFR, CBC, ADIFF, LIP #### [place] [address] Chloride [Moles/Vol] 103 mmol/L Normal 98-107 [facility] Comment on above: Performed By: #### A HEATHER DECKER, ELEANOR, GFR, CBC, ADIFF, LIP #### [place] [id number] CO2 [Moles/Vol] 33 mmol/L High 22-29 [facility] Comment on above: Performed By: #### A HEATHER DECKER, ELEANOR, GFR, CBC, ADIFF, LIP #### [place] [address] Creatinine [Mass/Vol] 1.02 mg/dL Normal 0.55-1.02 [facility] Comment on above: Result Comment: Test ing performed on Siemens Dimension EXL analyzer using a modified kinetic Oralia technique. Performed By: #### A HEATHER DECKER, ELEANOR, GFR, CBC, ADIFF, LIP #### [place] [address] Electrolyte Balance 5.0 mEq/L Normal 4.0-15.0 [facility] Comment on above: Performed By: #### A HEATHER DECKER, CMP, GFR, CBC, ADIFF, LIP #### [address] [address] Globulin 3.9 G/dL High 1.5-3.8 [facility] Comment on above: Performed By: #### A HEATHER DECKER, ELEANOR, GFR, CBC, ADIFF, LIP #### [address] [address] Glucose [Mass/Vol] 94 mg/dL Normal 70-105 [facility] Comment on above: Performed By: #### A HEATHER DECKER, ELEANOR, GFR, CBC, ADIFF, LIP #### [address] [address] Potassium [Moles/Vol] 4.2 mmol/L Normal 3.5-5.1 [facility] Comment on above: Performed By: #### A HEATHER DECKER, ELEANOR, GFR, CBC, ADIFF, LIP #### [address] [address] Sodium [Moles/Vol] 141 mmol/L Normal 136-145 [facility] Comment on above: Performed By: #### A HEATHER DECKER, ELEANOR, GFR, CBC, ADIFF, LIP #### [address] [address] Total Protein 7.6 G/dL Normal 6.4-8.2 [facility] Comment on above: Performed By: #### A HEATHER DECKER, ELEANOR, GFR, CBC, ADIFF, LIP #### [address] [address] Urea nitrogen [Mass/Vol] 17 mg/dL Normal 7-18 [facility] Comment on above: Performed By: #### A HEATHER DECKER, ELEANOR, GFR, CBC, ADIFF, LIP #### [address] [address] CNOVon 07-11-2024 [facility] RAIN MURPHY ([id number]) 1975 F Date Time Provider Department 07/11/24 11:20 AM [facility] During your visit today, we recorded the following information about you: Temperature Pulse Respiration Blood pressure 98.2 degrees 59/minute 20/minute 121/76 Weight 150.9 kg Evans Burdick MD 07/11/2024 12:29 PM Signed [facility] Subjective Rain Murphy is a 48 year old female. [...] hematuria. She has been referred to a plant protection officer for dyspnea on exertion. Prior colon evaluations [...] treatment. She generally has her care at [facility] and will go to the ER therefore [...] The patient was other (comment) (Referred to [facility] ER). Procedures Allergies As of Date: 07/11/2024 [...] hydrocortisone (HEM (more content not included)... Normal [facility] CT ABD/PELVIS W/ IV CONTRAST ONLYon 07-11-2024 [...] finding. Diverticulosis without diverticulitis. Interpreted by: Grace Aguilar MD Preliminary Report By: Grace Aguilar MD Electronically signed By Grace Aguilar MD Dictated Date: 07/11/2024 1:33:03 PM Prelim Date: 07/11/2024 1:34:56 PM Sign Date: 07/11/2024 1:34:56 PM Ordering Provider: SUZETTE PEREZ Normal [facility] LIPon 07-11-2024 Lipase Level 24 U/L Normal 16-77 [facility] Comment on above: Performed By: #### A HEATHER DECKER, ELEANOR, GFR, CBC, ADIFF, LIP #### [address] [address] UAon 07-11-2024 Color (U) Yellow Normal [facility] Comment on above: Performed By: #### A HEATHER DECKER, ELEANOR, GFR, CBC, ADIFF, LIP #### [address] [address] Glucose (U) [Mass/Vol] Negative Normal Negative [facility] Comment on above: Performed By: #### A HEATHER DECKER, ELEANOR, GFR, CBC, ADIFF, LIP #### [address] [address] Ketones Ql (U) Negative Normal Negative [facility] Comment on above: Performed By: #### A HEATHER DECKER, ELEANOR, GFR, CBC, ADIFF, LIP #### [address] [address] UA Appear Clear Normal Clear [facility] Comment on above: Performed By: #### A HEATHER DECKER, ELEANOR, GFR, CBC, ADIFF, LIP #### [address] [address] UA Blood Negative Normal Negative [facility] Comment on above: Performed By: #### A HEATHER DECKER, ELEANOR, GFR, CBC, ADIFF, LIP #### [address] [address] UA Leuk Est Trace Abnormal Negative [facility] Comment on above: Performed By: #### A HEATHER DECKER, ELEANOR, GFR, CBC, ADIFF, LIP #### [address] [address] UA Nitrite Negative Normal Negative [facility] Comment on above: Performed By: #### A HEATHER DECKER, ELEANOR, GFR, CBC, ADIFF, LIP #### [address] [address] UA pH 7.0 Normal 5.0 - 8.0 [facility] Comment on above: Performed By: #### A HEATHER DECKER, ELEANOR, GFR, CBC, ADIFF, LIP #### [address] [address] UA Protein Negative Normal Negative [facility] Comment on above: Performed By: #### A HEATHER DECKER, ELEANOR, GFR, CBC, ADIFF, LIP #### [place] [address] UA Spec Grav 1.025 Normal 1.015-1.02 5 [facility] Comment on above: Performed By: #### A HEATHER DECKER, ELEANOR, GFR, CBC, ADIFF, LIP #### [place] [address] UA Specimen Type Clean Catch Normal [facility] Comment on above: Performed By: #### A HEATHER DECKER, ELEANOR, GFR, CBC, ADIFF, LIP #### [place] [address] UA Urobilinogen 0.2 E.U./dL Normal 0.2-1.0 [facility] Comment on above: Performed By: #### A HEATHER DECKER, ELEANOR, GFR, CBC, ADIFF, LIP #### [place] [address] Urobilinogen (U) [Mass/Vol] Negative Normal Negative [facility] Comment on above: Performed By: #### A HEATHER DECKER, CMP, GFR, CBC, ADIFF, LIP #### [address] [address] .Auto Diffon 02-17-2024 Basophil, Absolute 0.1 10 3/mcL Normal 0.0-0.2 [facility] Comment on above: Performed By: #### A HEATHER DECKER, CMP, GFR, CBC, ADIFF, LIP #### [address] [address] Basophils/100 WBC (Bld) 0.8 % Normal 0.0-2.5 [facility] Comment on above: Performed By: #### A HEATHER DECKER, CMP, GFR, CBC, ADIFF, LIP #### [address] [address] Eosinophil, Absolute 0.4 10 3/mcL Normal 0.0-0.7 [facility] Comment on above: Performed By: #### A HEATHER DECKER, CMP, GFR, CBC, ADIFF, LIP #### [address] [address] Eosinophils/100 WBC (Bld) 5.4 % Normal 0.0-7.0 [facility] Comment on above: Performed By: #### A HEATHER DECKER, CMP, GFR, CBC, ADIFF, LIP #### [address] [address] Lymphocyte, Absolute 1.5 10 3/mcL Normal 0.9-4.3 [facility] Comment on above: Performed By: #### A HEATHER DECKER, CMP, GFR, CBC, ADIFF, LIP #### [address] [address] Lymphocytes/100 WBC (Bld) 21.8 % Normal 20.0-40.0 [facility] Comment on above: Performed By: #### A HEATHER DECKER, CMP, GFR, CBC, ADIFF, LIP #### [address] [address] Monocyte, Absolute 0.3 10 3/mcL Normal 0.1-1.4 [facility] Comment on above: Performed By: #### A HEATHER DECKER, CMP, GFR, CBC, ADIFF, LIP #### [address] [address] Monocytes/100 WBC (Bld) 3.9 % Normal 2.0-13.0 [facility] Comment on above: Performed By: #### A HEATHER DECKER, CMP, GFR, CBC, ADIFF, LIP #### [place] [address] [place], [place] [address] Neutrophils/100 WBC (Bld) 68.1 % Normal 50.0-75.0 [facility] Comment on above: Performed By: #### A HEATHER DECKER, CMP, GFR, CBC, ADIFF, LIP #### [place] [address] [place], [place] [address] .GFRon 02-17-2024 GFR 75 ml/min/1.73sqm Normal [facility] Comment on above: Result Comment: GFR Population [...] mL/min/1.73 square meters Performed By: #### A HEATHER DECKER, CMP, GFR, CBC, ADIFF, LIP #### [place] [address] [place], [place] [address] GFR Non- 62 ml/min/1.73sqm Normal [facility] Comment on above: Result Comment: GFR Population [...] mL/min/1.73 square meters Performed By: #### A HEATHER DECKER, ELEANOR, GFR, CBC, ADIFF, LIP #### [place] [address] .NEUABSon 02-17-2024 Neutrophil, Absolute 4.6 10 3/mcL Normal 2.3-8.1 [facility] Comment on above: Performed By: #### A HEATHER DECKER, CMP, GFR, CBC, ADIFF, LIP #### [place] [address] CBCon 02-17-2024 Erythrocyte distribution width (RBC) [Ratio] 17.1 % High 11.5-15.5 [facility] Comment on above: Performed By: #### A HEATHER DECKER, ELEANOR, GFR, CBC, ADIFF, LIP #### [place] [address] Hematocrit (Bld) [Volume fraction] 37.1 % Normal 34.0-46.0 [facility] Comment on above: Performed By: #### A HEATHER DECKER, ELEANOR, GFR, CBC, ADIFF, LIP #### [place] [address] Hgb 12.3 G/dL Normal 12.0-16.0 [facility] Comment on above: Performed By: #### A HEATHER DECKER, ELEANOR, GFR, CBC, ADIFF, LIP #### [place] [address] MCH (RBC) [Entitic mass] 28.3 pg Normal 27.0-33.0 [facility] Comment on above: Performed By: #### A HEATHER DECKER, ELEANOR, GFR, CBC, ADIFF, LIP #### [place] [address] MCHC 33.1 G/dL Normal 32.0-36.0 [facility] Comment on above: Performed By: #### A HEATHER DECKER, CMP, GFR, CBC, ADIFF, LIP #### [address] [address] MCV (RBC) [Entitic vol] 85.6 fL Normal 80.0-99.0 [facility] Comment on above: Performed By: #### A HEATHER DECKER, ELEANOR, GFR, CBC, ADIFF, LIP #### [address] [address] Platelet 230 10 3/mcL Normal 150-450 [facility] Comment on above: Performed By: #### A HEATHER DECKER, ELEANOR, GFR, CBC, ADIFF, LIP #### [address] [id number] Platelet mean volume (Bld) [Entitic vol] 7.8 fL Normal 6.6-10.5 [facility] Comment on above: Performed By: #### A HEATHER DECKER, ELEANOR, GFR, CBC, ADIFF, LIP #### [address] [address] RBC 4.34 10 6/mcL Normal 4.10-5.30 [facility] Comment on above: Performed By: #### A HEATHER DECKER, ELEANOR, GFR, CBC, ADIFF, LIP #### [address] [address] WBC 6.7 10 3/mcL Normal 4.5-10.8 [facility] Comment on above: Performed By: #### A HEATHER DECKER, ELEANOR, GFR, CBC, ADIFF, LIP #### [address] [address] CMPon 02-17-2024 Albumin Level 3.5 G/dL Normal 3.5-5.0 [facility] Comment on above: Performed By: #### A HEATHER DECKER, ELEANOR, GFR, CBC, ADIFF, LIP #### [address] [address] Albumin/Globulin [Mass ratio] 1.1 {ratio} Normal 1.1-2.5 [facility] Comment on above: Performed By: #### A HEATHER DECKER, CMP, GFR, CBC, ADIFF, LIP #### [address] [address] ALP [Catalytic activity/Vol] 122 U/L Normal 40-135 [facility] Comment on above: Performed By: #### A HEATHER DECKER, CMP, GFR, CBC, ADIFF, LIP #### [address] [address] ALT [Catalytic activity/Vol] 35 U/L Normal 14-59 [facility] Comment on above: Performed By: #### A HEATHER DECKER, ELEANOR, GFR, CBC, ADIFF, LIP #### [address] [address] AST [Catalytic activity/Vol] 27 U/L Normal 10-40 [facility] Comment on above: Performed By: #### A HEATHER DECKER, ELEANOR, GFR, CBC, ADIFF, LIP #### [address] [address] Bili Total 0.4 mg/dL Normal 0.2-1.0 [facility] Comment on above: Result Comment: Use of this assay is not recommended for patients undergoing treatment with eltrombopag due to the potential for falsely elevated results. Performed By: #### A HEATHER DECKER, ELEANOR, GFR, CBC, ADIFF, LIP #### [address] [address] BUN/Creatinine Ratio 12 ratio Normal 7-27 [facility] Comment on above: Performed By: #### A HEATHER DECKER, ELEANOR, GFR, CBC, ADIFF, LIP #### [address] [address] Calcium [Mass/Vol] 8.8 mg/dL Normal 8.4-10.2 [facility] Comment on above: Performed By: #### A HEATHER DECKER, CMP, GFR, CBC, ADIFF, LIP #### [address] [address] Chloride [Moles/Vol] 105 mmol/L Normal 98-107 [facility] Comment on above: Performed By: #### A HEATHER DECKER, ELEANOR, GFR, CBC, ADIFF, LIP #### [address] [address] CO2 [Moles/Vol] 33 mmol/L High 22-29 [facility] Comment on above: Performed By: #### A HEATHER DECKER, ELEANOR, GFR, CBC, ADIFF, LIP #### [address] [address] Creatinine [Mass/Vol] 0.96 mg/dL Normal 0.55-1.02 [facility] Comment on above: Result Comment: Test ing performed on Siemens Dimension EXL analyzer using a modified kinetic Oralia technique. Performed By: #### A HEATHER DECKER, ELEANOR, GFR, CBC, ADIFF, LIP #### [address] [address] Electrolyte Balance 4.0 mEq/L Normal 4.0-15.0 [facility] Comment on above: Performed By: #### A HEATHER DECKER, ELEANOR, GFR, CBC, ADIFF, LIP #### [place] [address] Globulin 3.3 G/dL Normal [facility] Comment on above: Performed By: #### A HEATHER DECKER, ELEANOR, GFR, CBC, ADIFF, LIP #### [address] [address] Glucose [Mass/Vol] 103 mg/dL Normal 70-105 [facility] Comment on above: Performed By: #### A HEATHER DECKER, ELEANOR, GFR, CBC, ADIFF, LIP #### [address] [address] Potassium [Moles/Vol] 4.3 mmol/L Normal 3.5-5.1 [facility] Comment on above: Performed By: #### A HEATHER DECKER, ELEANOR, GFR, CBC, ADIFF, LIP #### [address] [address] Sodium [Moles/Vol] 142 mmol/L Normal 136-145 [facility] Comment on above: Performed By: #### A HEATHER DECKER, CMP, GFR, CBC, ADIFF, LIP #### [address] [address] Total Protein 6.8 G/dL Normal 6.4-8.2 [facility] Comment on above: Performed By: #### A HEATHER DECKER, CMP, GFR, CBC, ADIFF, LIP #### [place] [id number] Urea nitrogen [Mass/Vol] 12 mg/dL Normal 7-18 [facility] Comment on above: Performed By: #### A HEATHER DECKER, CMP, GFR, CBC, ADIFF, LIP #### [address] [address] DIMERon 02-17-2024 D-Dimer 3269 ng/mL D-DU High 0-230 [facility] Comment on above: Result Comment: Resu lts [...] pulmonary embolism (PE). Performed By: #### A HEATHER DECKER, CMP, GFR, CBC, ADIFF, LIP #### [address] [address] FEon 02-17-2024 Iron [Mass/Vol] 93 ug/dL Normal 50-170 [facility] Comment on above: Performed By: #### A HEATHER DECKER, CMP, GFR, CBC, ADIFF, LIP #### [place] [address] [place], [place] [address] Sal 02-17-2024 Ferritin [Mass/Vol] 43.0 ng/mL Normal 8.0-252.0 [facility] Comment on above: Performed By: #### A HEATHER DECKER, CMP, GFR, CBC, ADIFF, LIP #### [place] [address] [place], [place] [address] LABORATORYOrdered By: SYSTEM SYSTEM on 02-17-2024 Albumin [...] Bilirubin [Mass/Vol] 0.4 mg/dL Normal 0.2 - 1 .0 mg/dL AO ADM SS Comment on above: Interpretive Data: U se of this assay is not recommended for patients undergoing treatment with eltrombopag due to the potential for falsely elevated results. Calcium [Mass/Vol] 8.8 mg/dL Normal 8.4 - 10. 2 mg/dL AO ADM SS Chloride [Moles/Vol] 105 mmol/L Normal 98 - 10 7 mmol/L AO ADM SS CO2 [Moles/Vol] 33 mmol/L High 22 - 29 mmol/L AO ADM SS Creatinine [Mass/Vol] 0.96 mg/dL Normal 0.55 - 1.02 mg/dL AO ADM SS Comment on above: Interpretive Data: T esting performed on Siemens Dimension EXL analyzer using a modified kinetic Oralia technique. Electrolyte Balance 4.0 mEq/L Normal 4.0 - 15 .0 mEq/L AO ADM SS Eosinophil, Absolute 0.4 103/mcL Normal 0.0 - 0 .7 10^3/mcL AO Workflow SS Eosinophils/100 WBC (Bld) [...] - 18 mg/dL AO ADM SS Urea nitrogen/Creatinine [Mass ratio] 12 ratio Normal 7 - [...] 02-17-2024 Cholesterol [Mass/Vol] 224 mg/dL High 0-200 [facility] Comment on above: Result Comment: Chol esterol Reference Interval: Less than 200 Desirable 200-239 Borderline high risk 240 and above High risk Performed By: #### A HEATHER DECKER, CMP, GFR, CBC, ADIFF, LIP #### [address] [address] Cholesterol in HDL [Mass/Vol] 46 mg/dL Normal 40-60 [facility] Comment on above: Performed By: #### A HEATHER DECKER, CMP, GFR, CBC, ADIFF, LIP #### [address] [address] Cholesterol in LDL [Mass/Vol] 145 mg/dL High 0-130 [facility] Comment on above: Performed By: #### A HEATHER DECKER, CMP, GFR, CBC, ADIFF, LIP #### [address] [address] Triglyceride [Mass/Vol] 165 mg/dL High 0-150 [facility] Comment on above: Result Comment: Trig lyceride Reference Interval: Less than 150 Normal 150-199 Borderline high risk 200-499 High risk 500 or higher Very high risk Performed By: #### A HEATHER DECKER, CMP, GFR, CBC, ADIFF, LIP #### [address] [address] .Auto Diffon 11-10-2023 Basophil, Absolute 0.0 10 3/mcL Normal 0.0-0.2 [facility] ([place]) Comment on above: Performed By: #### A DIFF, FE, DIMER, FERR, ANEU, CBC #### [address] [address] Basophils/100 WBC (Bld) 0.6 % Normal 0.0-2.5 [facility] ([place]) Comment on above: Performed By: #### A DIFF, FE, DIMER, FERR, ANEU, CBC #### [address] [address] Eosinophil, Absolute 0.3 10 3/mcL Normal 0.0-0.4 [facility] ([place]) Comment on above: Performed By: #### A DIFF, FE, DIMER, FERR, ANEU, CBC #### [address] [address] Eosinophils/100 WBC (Bld) 3.7 % Normal 0.0-7.0 [facility] ([place]) Comment on above: Performed By: #### A DIFF, FE, DIMER, FERR, ANEU, CBC #### [address] [address] Lymphocyte, Absolute 1.5 10 3/mcL Normal 0.8-3.9 [facility] ([place]) Comment on above: Performed By: #### A DIFF, FE, DIMER, FERR, ANEU, CBC #### [address] [address] Lymphocytes/100 WBC (Bld) 18.8 % Normal 10.0-50.0 [facility] ([place] Comment on above: Performed By: #### A DIFF, FE, DIMER, FERR, ANEU, CBC #### [address] [address] Monocyte, Absolute 0.4 10 3/mcL Normal 0.2-1.0 [facility] ([place]) Comment on above: Performed By: #### A DIFF, FE, DIMER, FERR, ANEU, CBC #### [address] [address] Monocytes/100 WBC (Bld) 5.2 % Normal 1.7-13.0 [facility] ([place]) Comment on above: Performed By: #### A DIFF, FE, DIMER, FERR, ANEU, CBC #### [address] [address] Neutrophils/100 WBC (Bld) 71.7 % Normal 37.0-80.0 [facility] ([place]) Comment on above: Performed By: #### A DIFF, FE, DIMER, FERR, ANEU, CBC #### [address] [address] .NEUABSon 11-10-2023 Neutrophil, Absolute 5.7 10 3/mcL Normal 2.9-6.2 [facility] ([place] Comment on above: Performed By: #### A DIFF, FE, DIMER, FERR, ANEU, CBC #### [place] [address] CBCon 11-10-2023 Erythrocyte distribution width (RBC) [Ratio] 21.2 % High 11.5-14.5 [facility] ([place]) Comment on above: Performed By: #### A DIFF, FE, DIMER, FERR, ANEU, CBC #### [place] [address] Hematocrit (Bld) [Volume fraction] 34.1 % Low 37.0-47.0 [facility] ([place] Comment on above: Performed By: #### A DIFF, FE, DIMER, FERR, ANEU, CBC #### [place] [address] Hgb 10.9 G/dL Low 12.0-16.0 [facility] ([place] Comment on above: Performed By: #### A DIFF, FE, DIMER, FERR, ANEU, CBC #### [place] [address] MCH (RBC) [Entitic mass] 22.7 pg Low 27.0-31.2 [facility] ([place] Comment on above: Performed By: #### A DIFF, FE, DIMER, FERR, ANEU, CBC #### [place] [address] MCHC 32.0 G/dL Low 33.0-37.0 [facility] ([place] Comment on above: Performed By: #### A DIFF, FE, DIMER, FERR, ANEU, CBC #### [place] [address] MCV (RBC) [Entitic vol] 70.9 fL Low 80.0-94.0 [facility] ([place] Comment on above: Performed By: #### A DIFF, FE, DIMER, FERR, ANEU, CBC #### [address] [address] Platelet 323 10 3/mcL Normal 130-400 [facility] ([place] Comment on above: Performed By: #### A DIFF, FE, DIMER, FERR, ANEU, CBC #### [address] [address] Platelet mean volume (Bld) [Entitic vol] 7.1 fL Low 7.4-10.4 [facility] ([place] Comment on above: Performed By: #### A DIFF, FE, DIMER, FERR, ANEU, CBC #### [address] [address] RBC 4.81 10 6/mcL Normal 4.20-5.40 [facility] ([place] Comment on above: Performed By: #### A DIFF, FE, DIMER, FERR, ANEU, CBC #### [address] [address] WBC 7.9 10 3/mcL Normal 4.6-10.8 [facility] ([place] Comment on above: Performed By: #### A DIFF, FE, DIMER, FERR, ANEU, CBC #### [address] [address] DIMERon 11-10-2023 D-Dimer 4160 ng/mL D-DU High 0-230 [facility] ([place]) Comment on above: Result Comment: Resu lts [...] DIFF, FE, DIMER, FERR, ANEU, CBC #### [address] [address] FEon 11-10-2023 Iron [Mass/Vol] 35 ug/dL Low 50-170 [facility] ([place]) Comment on above: Performed By: #### A DIFF, FE, DIMER, FERR, ANEU, CBC #### [place] [address] Sal 11-10-2023 Ferritin [Mass/Vol] 253.0 ng/mL High 8.0-252.0 [facility] ([place]) Comment on above: Performed By: #### A DIFF, FE, DIMER, FERR, ANEU, CBC #### [address] [address] RETO (AO)on 11-10-2023 Immature Retic Fraction 0.51 IRF High 0.20-0.46 [facility] ([place]) Comment on above: Performed By: #### A DIFF, FE, DIMER, FERR, ANEU, CBC #### [address] [address] Reticulocytes, Auto 2.2 % Normal 0.2-2.3 [facility] ([place]) Comment on above: Performed By: #### A DIFF, FE, DIMER, FERR, ANEU, CBC #### [address] [address] .Auto Diffon 10-28-2023 Basophil, Absolute 0.0 10 3/mcL Normal 0.0-0.2 [facility] ([place]) Comment on above: Performed By: #### A DIFF, FE, DIMER, FERR, ANEU, CBC #### [address] [address] Basophils/100 WBC (Bld) 0.5 % Normal 0.0-2.5 [facility] ([place]) Comment on above: Performed By: #### A DIFF, FE, DIMER, FERR, ANEU, CBC #### [address] [address] Eosinophil, Absolute 0.3 10 3/mcL Normal 0.0-0.4 [facility] ([place]) Comment on above: Performed By: #### A DIFF, FE, DIMER, FERR, ANEU, CBC #### [address] [address] Eosinophils/100 WBC (Bld) 3.5 % Normal 0.0-7.0 [facility] ([place]) Comment on above: Performed By: #### A DIFF, FE, DIMER, FERR, ANEU, CBC #### [address] [address] Lymphocyte, Absolute 1.7 10 3/mcL Normal 0.8-3.9 [facility] ([place] Comment on above: Performed By: #### A DIFF, FE, DIMER, FERR, ANEU, CBC #### [address] [address] Lymphocytes/100 WBC (Bld) 20.2 % Normal 10.0-50.0 [facility] ([place] Comment on above: Performed By: #### A DIFF, FE, DIMER, FERR, ANEU, CBC #### [address] [address] Monocyte, Absolute 0.6 10 3/mcL Normal 0.2-1.0 [facility] ([place] Comment on above: Performed By: #### A DIFF, FE, DIMER, FERR, ANEU, CBC #### [address] [address] Monocytes/100 WBC (Bld) 6.9 % Normal 1.7-13.0 [facility] ([place] Comment on above: Performed By: #### A DIFF, FE, DIMER, FERR, ANEU, CBC #### [address] [address] Neutrophils/100 WBC (Bld) 68.9 % Normal 37.0-80.0 [facility] ([place] Comment on above: Performed By: #### A DIFF, FE, DIMER, FERR, ANEU, CBC #### [address] [address] .GFRon 10-28-2023 GFR Non- 64 ml/min/1.73sqm Normal [facility] ([place]) Comment on above: Result Comment: GFR Population [...] DIFF, FE, DIMER, FERR, ANEU, CBC #### [address] [address] GFR 78 ml/min/1.73sqm Normal [facility] ([place] Comment on above: Result Comment: GFR Population [...] DIFF, FE, DIMER, FERR, ANEU, CBC #### [address] [address] .MDWon 10-28-2023 Monocyte Distribution Width 20.70 High 0.00-20.00 [facility] ([place]) Comment on above: Result Comment: For adults in ED, MDW>20.0 may be associated with a higher risk of sepsis during the first 12hrs of hospital admission Performed By: #### A DIFF, FE, DIMER, FERR, ANEU, CBC #### [address] [address] .NEUABSon 10-28-2023 Neutrophil, Absolute 5.9 10 3/mcL Normal 2.9-6.2 [facility] ([place] Comment on above: Performed By: #### A DIFF, FE, DIMER, FERR, ANEU, CBC #### [place] [id number] BMPon 10-28-2023 BUN/Creatinine Ratio 26 ratio Normal 7-27 [facility]) Comment on above: Performed By: #### A DIFF, FE, DIMER, FERR, ANEU, CBC #### [place] [address] Calcium [Mass/Vol] 9.1 mg/dL Normal 8.4-10.2 [facility] ([place]) Comment on above: Performed By: #### A DIFF, FE, DIMER, FERR, ANEU, CBC #### [address] [address] Chloride [Moles/Vol] 100 mmol/L Normal 98-107 [facility]) Comment on above: Performed By: #### A DIFF, FE, DIMER, FERR, ANEU, CBC #### [address] [address] CO2 [Moles/Vol] 27 mmol/L Normal 22-29 [facility] Comment on above: Performed By: #### A DIFF, FE, DIMER, FERR, ANEU, CBC #### [address] [address] Creatinine [Mass/Vol] 0.93 mg/dL Normal 0.55-1.02 [facility] ([place] Comment on above: Performed By: #### A DIFF, FE, DIMER, FERR, ANEU, CBC #### [address] [address] Electrolyte Balance 10.0 mEq/L Normal 4.0-15.0 [facility] ([place] Comment on above: Performed By: #### A DIFF, FE, DIMER, FERR, ANEU, CBC #### [address] [address] Glucose [Mass/Vol] 111 mg/dL High 70-105 [facility] ([place] Comment on above: Performed By: #### A DIFF, FE, DIMER, FERR, ANEU, CBC #### [address] [address] Potassium [Moles/Vol] 4.1 mmol/L Normal 3.5-5.1 [facility] ([place] Comment on above: Performed By: #### A DIFF, FE, DIMER, FERR, ANEU, CBC #### [address] [address] Sodium [Moles/Vol] 137 mmol/L Normal 136-145 [facility] ([place] Comment on above: Performed By: #### A DIFF, FE, DIMER, FERR, ANEU, CBC #### [address] [address] Urea nitrogen [Mass/Vol] 24 mg/dL High 7-18 [facility] ([place] Comment on above: Performed By: #### A DIFF, FE, DIMER, FERR, ANEU, CBC #### [address] [address] CBCon 10-28-2023 Erythrocyte distribution width (RBC) [Ratio] 19.3 % High 11.5-14.5 [facility] ([place] Comment on above: Performed By: #### A DIFF, FE, DIMER, FERR, ANEU, CBC #### [address] [address] Hematocrit (Bld) [Volume fraction] 33.4 % Low 37.0-47.0 [facility] ([place] Comment on above: Performed By: #### A DIFF, FE, DIMER, FERR, ANEU, CBC #### [address] [address] Hgb 10.6 G/dL Low 12.0-16.0 [facility] ([place] Comment on above: Performed By: #### A DIFF, FE, DIMER, FERR, ANEU, CBC #### [address] [address] MCH (RBC) [Entitic mass] 22.2 pg Low 27.0-31.2 [facility] ([place] Comment on above: Performed By: #### A DIFF, FE, DIMER, FERR, ANEU, CBC #### [address] [address] MCHC 31.6 G/dL Low 33.0-37.0 [facility] ([place] Comment on above: Performed By: #### A DIFF, FE, DIMER, FERR, ANEU, CBC #### [address] [address] MCV (RBC) [Entitic vol] 70.4 fL Low 80.0-94.0 [facility] ([place] Comment on above: Performed By: #### A DIFF, FE, DIMER, FERR, ANEU, CBC #### [address] [address] Platelet 367 10 3/mcL Normal 130-400 [facility] ([place] Comment on above: Performed By: #### A DIFF, FE, DIMER, FERR, ANEU, CBC #### [address] [address] Platelet mean volume (Bld) [Entitic vol] 7.2 fL Low 7.4-10.4 [facility] ([place] Comment on above: Performed By: #### A DIFF, FE, DIMER, FERR, ANEU, CBC #### [address] [address] RBC 4.74 10 6/mcL Normal 4.20-5.40 [facility] ([place] Comment on above: Performed By: #### A DIFF, FE, DIMER, FERR, ANEU, CBC #### [address], [place] [address] WBC 8.5 10 3/mcL Normal 4.6-10.8 [facility] ([place] Comment on above: Performed By: #### A DIFF, FE, DIMER, FERR, ANEU, CBC #### [place] [address] [place], [place] [address] CT ANGIOGRAPHY CHEST W/CONTR Suki 10-28-2023 CT [...] No other acute finding. Interpreted by: Grace Aguilar MD Preliminary Report By: Grace Aguilar MD Electronically signed By Grace Aguilar MD Dictated Date: 10/28/2023 10:43:45 AM Prelim Date: 10/28/2023 10:48:13 AM Sign Date: 10/28/2023 10:48:13 AM Ordering Provider: ROMAINE George [facility] ([place]) LABORATORYOrdered By: SYSTEM SYSTEM on 10-28-2023 Basophil, Absolute 0.0 103/mcL Normal 0.0 - 0.2 10^3/mcL AO Workflow SS Basophils/100 WBC (Bld) 0.5 % Normal 0.0 - 2.5 % AO Workflow SS Calcium [Mass/Vol] 9.1 mg/dL Normal 8.4 - 10. 2 mg/dL AO ADM SS Chloride [Moles/Vol] 100 mmol/L Normal 98 - 10 7 mmol/L AO ADM SS CO2 [Moles/Vol] 27 mmol/L Normal 22 - 29 mmol/L AO ADM SS Creatinine [Mass/Vol] 0.93 mg/dL Normal 0.55 - 1.02 mg/dL AO ADM SS Electrolyte Balance 10.0 mEq/L Normal 4.0 - 15 .0 mEq/L AO ADM SS Eosinophil, Absolute 0.3 103/mcL Normal 0.0 - 0 .4 10^3/mcL AO Workflow SS Eosinophils/100 WBC (Bld) [...] Lymphocyte, Absolute 1.7 103/mcL Normal 0.8 - 3 .9 10^3/mcL AO Workflow SS Lymphocytes/100 WBC (Bld) [...] Neutrophil, Absolute 5.9 103/mcL Normal 2.9 - 6 .2 10^3/mcL AO Workflow SS Neutrophils/100 WBC (Bld) [...] ng/L Male: 0-76 ng/L Testing performed on [employer] using a homogeneous sandwich chemiluminescent immunoassay based on [employer] technology. Urea nitrogen [Mass/Vol] 24 mg/dL High 7 - 18 mg/dL AO ADM SS Urea nitrogen/Creatinine [Mass ratio] 26 ratio Normal 7 - 27 ratio AO ADM SS WBC (Bld) [#/Vol] 8.5 103/mcL Normal 4.6 - 10.8 10^3/mcL AO Workflow SS PBNPon 10-28-2023 Natriuretic peptide B (Bld) [Mass/Vol] 64 pg/mL Normal 0-125 [facility] ([place]) Comment on above: Result Comment: NT-p roBNP results of less than 300 pg/mL effectively rules out acute congestive heart failure with 99% negative predictive value. Performed By: #### A DIFF, FE, DIMER, FERR, ANEU, CBC #### [address] [address] [facility] 10-28-2023 High Sensitivity Troponin I <4 Normal 0-51 [facility] ([place]) Comment on above: Result Comment: High Sensitive Troponin I Reference Ranges: Female: 0-51 ng/L Male: 0-76 ng/L Testing performed on [employer] using a homogeneous sandwich chemiluminescent immunoassay based on Music[employer] technology. Performed By: #### A DIFF, FE, DIMER, FERR, ANEU, CBC #### [address] [address] .Auto Diffon 10-27-2023 Basophil, Absolute 0.1 10 3/mcL Normal 0.0-0.2 [facility] ([place]) Comment on above: Performed By: #### V IDH, ANEU, DIMER, CBC, GFR, CMP, FT4, TSH, FERR, ADIFF #### [address] [address] Basophils/100 WBC (Bld) 0.7 % Normal 0.0-2.5 [facility] ([place] Comment on above: Performed By: #### V IDH, ANEU, DIMER, CBC, GFR, CMP, FT4, TSH, FERR, ADIFF #### [address] [address] Eosinophil, Absolute 0.3 10 3/mcL Normal 0.0-0.4 [facility] ([place] Comment on above: Performed By: #### V IDH, ANEU, DIMER, CBC, GFR, CMP, FT4, TSH, FERR, ADIFF #### [address] [address] Eosinophils/100 WBC (Bld) 3.5 % Normal 0.0-7.0 [facility] ([place] Comment on above: Performed By: #### V IDH, ANEU, DIMER, CBC, GFR, CMP, FT4, TSH, FERR, ADIFF #### [address] [address] Lymphocyte, Absolute 1.7 10 3/mcL Normal 0.8-3.9 [facility] ([place] Comment on above: Performed By: #### V IDH, ANEU, DIMER, CBC, GFR, CMP, FT4, TSH, FERR, ADIFF #### [address] [address] Lymphocytes/100 WBC (Bld) 19.4 % Normal 10.0-50.0 [facility] ([place] Comment on above: Performed By: #### V IDH, ANEU, DIMER, CBC, GFR, CMP, FT4, TSH, FERR, ADIFF #### [address] [address] Monocyte, Absolute 0.6 10 3/mcL Normal 0.2-1.0 [facility] ([place] Comment on above: Performed By: #### V IDH, ANEU, DIMER, CBC, GFR, CMP, FT4, TSH, FERR, ADIFF #### [address] [address] Monocytes/100 WBC (Bld) 6.5 % Normal 1.7-13.0 [facility] ([place] Comment on above: Performed By: #### V IDH, ANEU, DIMER, CBC, GFR, CMP, FT4, TSH, FERR, ADIFF #### [address] [address] Neutrophils/100 WBC (Bld) 69.9 % Normal 37.0-80.0 [facility] ([place] Comment on above: Performed By: #### V IDH, ANEU, DIMER, CBC, GFR, CMP, FT4, TSH, FERR, ADIFF #### [address] [address] .GFRon 10-27-2023 GFR 85 ml/min/1.73sqm Normal [facility] ([place] Comment on above: Result Comment: GFR Population [...] DIFF, FE, DIMER, FERR, ANEU, CBC #### [address] [address] GFR Non- 70 ml/min/1.73sqm Normal [facility] ([place] Comment on above: Result Comment: GFR Population [...] DIFF, FE, DIMER, FERR, ANEU, CBC #### [address] [address] .NEUABSon 10-27-2023 Neutrophil, Absolute 6.1 10 3/mcL Normal 2.9-6.2 [facility] ([place] Comment on above: Performed By: #### A DIFF, FE, DIMER, FERR, ANEU, CBC #### [place] [address] CBCon 10-27-2023 Erythrocyte distribution width (RBC) [Ratio] 19.3 % High 11.5-14.5 [facility] ([place] Comment on above: Performed By: #### V IDH, ANEU, DIMER, CBC, GFR, CMP, FT4, TSH, FERR, ADIFF #### [place] [id number] Hematocrit (Bld) [Volume fraction] 34.6 % Low 37.0-47.0 [facility] ([place] Comment on above: Performed By: #### V IDH, ANEU, DIMER, CBC, GFR, CMP, FT4, TSH, FERR, ADIFF #### [place] [id number] Hgb 10.7 G/dL Low 12.0-16.0 [facility] ([place] Comment on above: Performed By: #### V IDH, ANEU, DIMER, CBC, GFR, CMP, FT4, TSH, FERR, ADIFF #### [address] [address] MCH (RBC) [Entitic mass] 21.7 pg Low 27.0-31.2 [facility] ([place] Comment on above: Performed By: #### V IDH, ANEU, DIMER, CBC, GFR, CMP, FT4, TSH, FERR, ADIFF #### [address] [address] MCHC 30.8 G/dL Low 33.0-37.0 [facility] ([place] Comment on above: Performed By: #### V IDH, ANEU, DIMER, CBC, GFR, CMP, FT4, TSH, FERR, ADIFF #### [address] [address] MCV (RBC) [Entitic vol] 70.4 fL Low 80.0-94.0 [facility] ([place]) Comment on above: Performed By: #### V IDH, ANEU, DIMER, CBC, GFR, CMP, FT4, TSH, FERR, ADIFF #### [address] [address] Platelet 383 10 3/mcL Normal 130-400 [facility] ([place]) Comment on above: Performed By: #### V IDH, ANEU, DIMER, CBC, GFR, CMP, FT4, TSH, FERR, ADIFF #### [address] [address] Platelet mean volume (Bld) [Entitic vol] 7.3 fL Low 7.4-10.4 [facility] ([place]) Comment on above: Performed By: #### V IDH, ANEU, DIMER, CBC, GFR, CMP, FT4, TSH, FERR, ADIFF #### [address] [address] RBC 4.91 10 6/mcL Normal 4.20-5.40 [facility] ([place]) Comment on above: Performed By: #### V IDH, ANEU, DIMER, CBC, GFR, CMP, FT4, TSH, FERR, ADIFF #### [address] [address] WBC 8.7 10 3/mcL Normal 4.6-10.8 [facility] ([place]) Comment on above: Performed By: #### V IDH, ANEU, DIMER, CBC, GFR, CMP, FT4, TSH, FERR, ADIFF #### [address] [address] CMPon 10-27-2023 Albumin Level 3.6 G/dL Normal 3.5-5.0 [facility] ([place]) Comment on above: Performed By: #### A DIFF, FE, DIMER, FERR, ANEU, CBC #### [address] [address] Albumin/Globulin [Mass ratio] 0.9 {ratio} Low 1.1-2.5 [facility] ([place] Comment on above: Performed By: #### A DIFF, FE, DIMER, FERR, ANEU, CBC #### [address] [address] ALP [Catalytic activity/Vol] 157 U/L High 40-135 [facility] ([place] Comment on above: Performed By: #### A DIFF, FE, DIMER, FERR, ANEU, CBC #### [address] [address] ALT [Catalytic activity/Vol] 22 U/L Normal 14-59 [facility] ([place] Comment on above: Performed By: #### A DIFF, FE, DIMER, FERR, ANEU, CBC #### [address] [address] AST [Catalytic activity/Vol] 14 U/L Normal 10-40 [facility] ([place] Comment on above: Performed By: #### A DIFF, FE, DIMER, FERR, ANEU, CBC #### [address] [address] Bili Total 0.3 mg/dL Normal 0.2-1.0 [facility] ([place] Comment on above: Result Comment: Use of this assay is not recommended for patients undergoing treatment with eltrombopag due to the potential for falsely elevated results. Performed By: #### A DIFF, FE, DIMER, FERR, ANEU, CBC #### [address] [address] BUN/Creatinine Ratio 23 ratio Normal 7-27 [facility] ([place]) Comment on above: Performed By: #### A DIFF, FE, DIMER, FERR, ANEU, CBC #### [address] [address] Calcium [Mass/Vol] 9.2 mg/dL Normal 8.4-10.2 [facility] ([place] Comment on above: Performed By: #### A DIFF, FE, DIMER, FERR, ANEU, CBC #### [address] [address] Chloride [Moles/Vol] 99 mmol/L Normal 98-107 [facility] ([place] Comment on above: Performed By: #### A DIFF, FE, DIMER, FERR, ANEU, CBC #### [address] [address] CO2 [Moles/Vol] 29 mmol/L Normal 22-29 [facility] ([place] Comment on above: Performed By: #### A DIFF, FE, DIMER, FERR, ANEU, CBC #### [address] [address] Creatinine [Mass/Vol] 0.86 mg/dL Normal 0.55-1.02 [facility] ([place] Comment on above: Performed By: #### A DIFF, FE, DIMER, FERR, ANEU, CBC #### [address] [address] Electrolyte Balance 7.0 mEq/L Normal 4.0-15.0 [facility] ([place] Comment on above: Performed By: #### A DIFF, FE, DIMER, FERR, ANEU, CBC #### [address] [address] Globulin 4.2 G/dL Normal [facility] ([place] Comment on above: Performed By: #### A DIFF, FE, DIMER, FERR, ANEU, CBC #### [address] [address] Glucose [Mass/Vol] 100 mg/dL Normal 70-105 [facility] ([place] Comment on above: Performed By: #### A DIFF, FE, DIMER, FERR, ANEU, CBC #### [address] [address] Potassium [Moles/Vol] 4.4 mmol/L Normal 3.5-5.1 [facility] Comment on above: Performed By: #### A DIFF, FE, DIMER, FERR, ANEU, CBC #### [address] [address] Sodium [Moles/Vol] 135 mmol/L Low 136-145 [facility]) Comment on above: Performed By: #### A DIFF, FE, DIMER, FERR, ANEU, CBC #### [address] [address] Total Protein 7.8 G/dL Normal 6.4-8.2 [facility] Comment on above: Performed By: #### A DIFF, FE, DIMER, FERR, ANEU, CBC #### [address] [address] Urea nitrogen [Mass/Vol] 20 mg/dL High 7-18 [facility] ([place] Comment on above: Performed By: #### A DIFF, FE, DIMER, FERR, ANEU, CBC #### [address] [address] DIMERon 10-27-2023 D-Dimer 4310 ng/mL D-DU High 0-230 [facility] ([place] Comment on above: Result Comment: Resu lts [...] DIFF, FE, DIMER, FERR, ANEU, CBC #### [place] [address] Sal 10-27-2023 Ferritin [Mass/Vol] 10.0 ng/mL Normal 8.0-252.0 [facility] ([place] Comment on above: Performed By: #### A DIFF, FE, DIMER, FERR, ANEU, CBC #### [place] [address] FT4on 10-27-2023 Free T4 [Mass/Vol] 1.01 ng/dL Normal 0.76-1.46 [facility] ([place] Comment on above: Performed By: #### A DIFF, FE, DIMER, FERR, ANEU, CBC #### [place] [address] TSHon 10-27-2023 TSH Qn 2.22 m[IU]/L Normal 0.36-3.74 [facility] ([place]) Comment on above: Performed By: #### A DIFF, FE, DIMER, FERR, ANEU, CBC #### [place] [address] VIDHon 10-27-2023 Vit. D 25-Hydroxy 29.6 ng/mL Normal [facility] ([place]) Comment on above: Result Comment: Inte rpretive Values Based on Total 25(OH) Vitamin D: Deficient <20 ng/mL Insufficient 20 - <30 ng/mL Sufficient 30-100 ng/mL Performed By: #### A DIFF, FE, DIMER, FERR, ANEU, CBC #### [place] [address] .Auto Diffon 12-22-2022 Basophil, Absolute 0.1 10 3/mcL Normal 0.0-0.2 [facility] ([place] Comment on above: Performed By: #### A DIFF, FE, DIMER, FERR, ANEU, CBC #### [address] [address] Basophils/100 WBC (Bld) 0.8 % Normal 0.0-2.5 [facility] ([place] Comment on above: Performed By: #### A DIFF, FE, DIMER, FERR, ANEU, CBC #### [address] [address] Eosinophil, Absolute 0.5 10 3/mcL High 0.0-0.4 [facility] ([place]) Comment on above: Performed By: #### A DIFF, FE, DIMER, FERR, ANEU, CBC #### [address] [address] Eosinophils/100 WBC (Bld) 7.1 % High 0.0-7.0 [facility] ([place] Comment on above: Performed By: #### A DIFF, FE, DIMER, FERR, ANEU, CBC #### [address] [address] Lymphocyte, Absolute 1.8 10 3/mcL Normal 0.8-3.9 [facility] ([place] Comment on above: Performed By: #### A DIFF, FE, DIMER, FERR, ANEU, CBC #### [address] [address] Lymphocytes/100 WBC (Bld) 26.6 % Normal 10.0-50.0 [facility] ([place] Comment on above: Performed By: #### A DIFF, FE, DIMER, FERR, ANEU, CBC #### [address] [address] Monocyte, Absolute 0.4 10 3/mcL Normal 0.2-1.0 [facility] ([place] Comment on above: Performed By: #### A DIFF, FE, DIMER, FERR, ANEU, CBC #### [address] [place] [address] Monocytes/100 WBC (Bld) 5.3 % Normal 1.7-13.0 [facility] ([place] Comment on above: Performed By: #### A DIFF, FE, DIMER, FERR, ANEU, CBC #### [address] [address] Neutrophils/100 WBC (Bld) 60.2 % Normal 37.0-80.0 [facility] ([place] Comment on above: Performed By: #### A DIFF, FE, DIMER, FERR, ANEU, CBC #### [address] [address] .NEUABSon 12-22-2022 Neutrophil, Absolute 4.0 10 3/mcL Normal 2.9-6.2 [facility] ([place] Comment on above: Performed By: #### A DIFF, FE, DIMER, FERR, ANEU, CBC #### [address] [address] CBCon 12-22-2022 Erythrocyte distribution width (RBC) [Ratio] 17.5 % High 11.5-14.5 [facility] ([place] Comment on above: Performed By: #### A DIFF, FE, DIMER, FERR, ANEU, CBC #### [address] [address] Hematocrit (Bld) [Volume fraction] 33.4 % Low 37.0-47.0 [facility] ([place] Comment on above: Performed By: #### A DIFF, FE, DIMER, FERR, ANEU, CBC #### [address] [address] Hgb 10.5 G/dL Low 12.0-16.0 [facility] ([place] Comment on above: Performed By: #### A DIFF, FE, DIMER, FERR, ANEU, CBC #### [address] [address] MCH (RBC) [Entitic mass] 23.6 pg Low 27.0-31.2 [facility] ([place] Comment on above: Performed By: #### A DIFF, FE, DIMER, FERR, ANEU, CBC #### [address] [address] MCHC 31.5 G/dL Low 33.0-37.0 [facility] ([place] Comment on above: Performed By: #### A DIFF, FE, DIMER, FERR, ANEU, CBC #### [address] [address] MCV (RBC) [Entitic vol] 74.9 fL Low 80.0-94.0 [facility] ([place] Comment on above: Performed By: #### A DIFF, FE, DIMER, FERR, ANEU, CBC #### [address] [address] Platelet 304 10 3/mcL Normal 130-400 [facility] ([place] Comment on above: Performed By: #### A DIFF, FE, DIMER, FERR, ANEU, CBC #### [place] [address] Platelet mean volume (Bld) [Entitic vol] 7.7 fL Normal 7.4-10.4 [facility] ([place] Comment on above: Performed By: #### A DIFF, FE, DIMER, FERR, ANEU, CBC #### [address] [address] RBC 4.46 10 6/mcL Normal 4.20-5.40 [facility] ([place] Comment on above: Performed By: #### A DIFF, FE, DIMER, FERR, ANEU, CBC #### [address] [address] WBC 6.7 10 3/mcL Normal 4.6-10.8 [facility] ([place] Comment on above: Performed By: #### A DIFF, FE, DIMER, FERR, ANEU, CBC #### [address] [address] Sal 12-22-2022 Ferritin [Mass/Vol] 14.0 ng/mL Normal 8.0-252.0 [facility] ([place]) Comment on above: Performed By: #### F ERR #### [place] [address] [place], [place] [address] LABORATORYOrdered By: SYSTEM SYSTEM on 12-22-2022 Ferritin [...] - 16.0 G/dL AO Workflow SS Immature reticulocytes/Total reticulocytes (Bld) 0.45 IRF Invalid Interpretation Code [...] Immature Retic Fraction 0.45 IRF Normal 0.20-0.46 [facility] ([place] Comment on above: Performed By: #### A DIFF, FE, DIMER, FERR, ANEU, CBC #### [address] [address] Reticulocytes, Auto 1.6 % Normal 0.2-2.3 [facility] ([place] Comment on above: Performed By: #### A DIFF, FE, DIMER, FERR, ANEU, CBC #### [address] [address] VIDHon 12-22-2022 Vit. D 25-Hydroxy 25.7 ng/mL Normal [facility] ([place]) Comment on above: Result Comment: Inte rpretive Values Based on Total 25(OH) Vitamin D: Deficient <20 ng/mL Insufficient 20 - <30 ng/mL Sufficient 30-100 ng/mL Performed By: #### A DIFF, FE, DIMER, FERR, ANEU, CBC #### [address] [address] LABORATORYOrdered By: SYSTEM SYSTEM on 06-29-2022 Albumin [...] - 18 mg/dL AO ADM SS Urea nitrogen/Creatinine [Mass ratio] 16 ratio Invalid Interpretation Code [...] - 18 mg/dL AO ADM SS Urea nitrogen/Creatinine [Mass ratio] 19 ratio Invalid Interpretation Code [...] >100,000 COL/ML MIXED VEGA-PLEASE REPEAT-POSSIBLE CONTAMIN Normal [facility] Comment on above: Order Comment: Brennonu s: LOREN DIPSTICKon 07-19-2021 POC APPEARANCE HAZY Normal CLEAR [facility] Comment on above: Order Comment: Campu s: MAS POC BILIRUBIN Negative [facility]: Order Comment: Campu s: MAS POC BLOOD Negative [facility]GAT[facility] Comment on above: Order Comment: Campu s: MAS POC COLOR YELLOW Normal [facility] Comment on above: Order Comment: Campu s: MAS POC KETONE 5 MG/DL Normal NEGATIVE [facility] Comment on above: Order Comment: Campu s: MAS POC LEUK EST 70 BRICE/uL Normal NEGATIVE [facility] Comment on above: Order Comment: Campu s: MAS POC NITRITE Negative Normal NEGATIVE [facility] Comment on above: Order Comment: Campu s: MAS POC PROTEIN 30 MG/DL Normal NEGATIVE [facility] Comment on above: Order Comment: Campu s: MAS POC SPEC GRAV 1.030 Normal 1.005-1.03 0 [facility] Comment on above: Order Comment: Brennonu s: MAS POC UA GLUCOSE NORMAL Normal NORMAL [facility] Comment on above: Order Comment: Brennonu s: [facility] POC UA PH 5.0 Normal 5-6 [facility] Comment on above: Order Comment: Seema s: [facility] POC UROBIL 1.0 MG/DL Normal NORMAL [facility] Comment on above: Order Comment: Seema s: LOREN MSCon 07-19-2021 [facility] REPORT Normal [facility] DATE OF SERVICE: 11/2021 REASON FOR VISIT: [...] no refill. I will send urine for [facility] PATIENT NAME: RAIN MURPHY [address] [place] MEDICAL REC #: [id number] [place] [address] [facility] REPORT [facility] PHYSICIAN culture. She should drink a lot of fluid, Tylenol as needed, and follow with her doctor if there is no improvement. Patient understood and agreed. Bridger Croft MD [id number] SSI File#: [id number] END OF DOCUMENT / CHANGE LOG FOLLOWS Last Edited By Elec. Signed By Bridger Croft MD #PAWPR Bridger Croft MD #PAWPR on 07/24/2021 13:38 ET on 07/24/2021 13:38 ET Revision Number - 2 Verified/Reviewed by 07/24/21 1338 PAWPR [facility] PATIENT NAME: RAIN MURPHY [address] [place] MEDICAL REC #: [id number] [place] [address] [facility] REPORT [facility] PHYSICIAN Normal [facility] LABORATORYOrdered By: Fiordaliza Alford on 03-15-2021 Beta HCG ( test) Ql (U) Negative (03/15/21 7:35 AM) [facility] Work Phone: LABORATORYOrdered By: SYSTEM SYSTEM on 03-04-2021 Albumin BCP dye [Mass/Vol] 3.3 G/dL Invalid Interpretation Code 3.2 - 4.8 G/dL AH ADM SS Albumin/Globulin [Mass ratio] 0.8 {ratio} [...] ml/min/1.73sqm Invalid Interpretation Code AH Chemistry S Globulin 3.9 G/dL Invalid Interpretation [...] - 22.0 mg/dL AH ADM SS Urea nitrogen/Creatinine [Mass ratio] 32.9 ratio Invalid Interpretation Code 10.0 - 22.0 ratio AH ADM SS WBC (Bld) [#/Vol] 6.00 103/mcL Invalid Interpretation Code 4.50 - 10.80 10^3/mcL AH Remisol SS Vital Signs Date Time Vital Sign Value Performing Clinician Facility 12-05-2024 09:30-0400 Body temperature 97.7 [degF] Dr. Berna Michel MD Work Phone: [facility] 12-05-2024 09:30-0400 Diastolic blood pressure 64 mm[Hg] Dr. Berna Michel MD Work Phone: [facility] 12-05-2024 09:30-0400 Heart rate 68 /min Dr. Berna Michel MD Work Phone: [facility] 12-05-2024 09:30-0400 Respiratory rate 16 /min Dr. Berna Michel MD Work Phone: [facility] 12-05-2024 09:30-0400 SaO2% (BldA) [Mass fraction] 94 % Dr. Berna Michel MD Work Phone: [facility] 12-05-2024 09:30-0400 Systolic blood pressure 116 mm[Hg] Dr. Berna Michel MD Work Phone: [facility] 12-05-2024 07:32-0400 Body height 154.[address] Berna Michel MD Work Phone: [facility] 12-05-2024 07:32-0400 Body mass index (BMI) [Ratio] 58.3 kg/m2 Dr. Berna Michel MD Work Phone: [facility] 12-05-2024 07:32-0400 Body weight [address] Berna Michel MD Work Phone: [facility] 07-11-2024 11:32-0400 Body temperature 98.2 [degF] Evans Burdick MD Work Phone: [facility] 07-11-2024 11:32-0400 Body weight 150.87 kg Evans Burdick MD Work Phone: [facility] 07-11-2024 11:32-0400 Diastolic blood pressure 76 mm[Hg] Evans Burdick MD Work Phone: [facility] 07-11-2024 11:32-0400 Heart rate 59 /min Evans Burdick MD Work Phone: [facility] 07-11-2024 11:32-0400 Respiratory rate 20 /min Evans Burdick MD Work Phone: [facility] 07-11-2024 11:32-0400 SaO2% (BldA) [Mass fraction] 91 % Evans Burdick MD Work Phone: [facility] Comment on above: Checked multiple fingers 07-11-2024 11:32-0400 Systolic blood pressure 121 mm[Hg] Evans Burdick MD Work Phone: [facility] 10-28-2023 11:53-0400 Diastolic Blood Pressure Non-Invasive 76 mm[Hg] DR ROMAINE CARR DO [facility] 10-28-2023 11:53-0400 Heart rate 60 /min DR ROMAINE CARR DO [facility] 10-28-2023 11:53-0400 Respiratory rate 16 /min DR ROMAINE CARR DO [facility] 10-28-2023 11:53-0400 Systolic Blood Pressure Non-Invasive 112 mm[Hg] DR ROMAINE CARR DO [facility] 10-28-2023 11:46-0400 Body weight 155.[address] ROMAINE CARR DO [facility] 10-28-2023 10:29-0400 Diastolic Blood Pressure Non-Invasive 77 mm[Hg] DR ROMAINE CARR DO [facility] 10-28-2023 10:29-0400 Heart rate 67 /min DR ROMAINE CARR DO [facility] 10-28-2023 10:29-0400 Respiratory rate 16 /min DR ROMAINE CARR DO [facility] 10-28-2023 10:29-0400 Systolic Blood Pressure Non-Invasive 132 mm[Hg] DR ROMAINE CARR DO [facility] 10-28-2023 09:42-[address] ROMAINE CARR DO [facility] 10-28-2023 09:42-[address] ROMAINE CARR DO [facility] 10-28-2023 09:42-0400 Body temperature 98.24 [degF] DR ROMAINE CARR DO [facility] 10-28-2023 09:42-0400 Diastolic Blood Pressure Non-Invasive 74 mm[Hg] DR ROMAINE CARR DO [facility] 10-28-2023 09:42-0400 Heart rate 65 /min DR ROMAINE CARR DO [facility] 10-28-2023 09:42-0400 Respiratory rate 18 /min DR ROMAINE CARR DO [facility] 10-28-2023 09:42-0400 Systolic Blood Pressure Non-Invasive 109 mm[Hg] DR ROMAINE CARR DO [facility] 06-29-2022 12:55-0400 Diastolic Blood Pressure Non-Invasive [address] BYRON DÍAZ MD [facility] 06-29-2022 12:55-0400 Heart rate 68 /min DR BYRON DÍAZ MD [facility] 06-29-2022 12:55-0400 Respiratory rate 18 /min DR BYRON DÍAZ MD [facility] 06-29-2022 12:55-0400 Systolic Blood Pressure Non-Invasive [address] BYRON DÍAZ MD [facility] 06-29-2022 11:24-0400 Body temperature 96.62 [degF] DR BYRON DÍAZ MD [facility] 06-29-2022 11:24-0400 Diastolic Blood Pressure Non-Invasive [address] BYRON DÍAZ MD [facility] 06-29-2022 11:24-0400 Heart rate 66 /min DR BYRON DÍAZ MD [facility] 06-29-2022 11:24-0400 Respiratory rate 23 /min DR BYRON DÍAZ MD [facility] 06-29-2022 11:24-0400 Systolic Blood Pressure Non-Invasive [address] BYRON DÍAZ MD [facility] 11-21-2021 16:49-0400 Diastolic blood pressure 65 mm[Hg] PHIL SMITH MD [facility] 11-21-2021 16:49-0400 Heart rate 60 /min PHIL SMITH MD [facility] 11-21-2021 16:49-0400 Respiratory rate 18 /min PHIL SMITH MD [facility] 11-21-2021 16:49-0400 Systolic blood pressure 112 mm[Hg] PHIL SMITH MD [facility] 11-21-2021 15:18-0400 Body temperature 98.24 [degF] PHIL SMITH MD [facility] 11-21-2021 15:18-0400 Body weight 127 kg PHIL SMITH MD [facility] 11-21-2021 15:18-0400 Diastolic blood pressure 73 mm[Hg] PHIL SMITH MD [facility] 11-21-2021 15:18-0400 Heart rate 62 /min PHIL SMITH MD [facility] 11-21-2021 15:18-0400 Respiratory rate 20 /min PHIL SMITH MD [facility] 11-21-2021 15:18-0400 Systolic blood pressure 108 mm[Hg] PHIL SMITH MD [facility] 03-15-2021 10:06-0500 Body temperature 96.62 [degF] DR NENA HENSLEY MD [facility] 03-15-2021 10:06-0500 Diastolic Blood Pressure NBP [address] NENA HENSLEY MD [facility] 03-15-2021 10:06-0500 Heart rate 68 /min DR NENA HENSLEY MD [facility] 03-15-2021 10:06-0500 Reason For Taking VItal Signs DR NENA HENSLEY MD [facility] 03-15-2021 10:06-0500 Respiratory rate 16 /min DR NENA HENSLEY MD [facility] 03-15-2021 10:06-0500 Systolic Blood Pressure NBP [address] NENA HENSLEY MD [facility] 03-15-2021 09:58-0500 Body temperature 97.16 [degF] DR NENA HENSLEY MD [facility] 03-15-2021 09:58-0500 Diastolic Blood Pressure NBP [address] NENA HENSLEY MD [facility] 03-15-2021 09:58-0500 Heart rate 77 /min DR NENA HENSLEY MD [facility] 03-15-2021 09:58-0500 Mean blood pressure 75 mm[Hg] DR NENA HENSLEY MD [facility] 03-15-2021 09:58-0500 Respiratory rate 16 /min DR NENA HENSLEY MD [facility] 03-15-2021 09:58-0500 Systolic Blood Pressure NBP [address] NENA HENSLEY MD [facility] 03-15-2021 09:43-0500 Body temperature 96.8 [degF] DR NENA HENSLEY MD [facility] 03-15-2021 09:43-0500 Diastolic Blood Pressure NBP [address] NENA HENSLEY MD [facility] 03-15-2021 09:43-0500 Heart rate 78 /min DR NENA HENSLEY MD [facility] 03-15-2021 09:43-0500 Mean blood pressure 69 mm[Hg] DR NENA HENSLEY MD [facility] 03-15-2021 09:43-0500 Respiratory rate 16 /min DR NENA HENSLEY MD [facility] 03-15-2021 09:43-0500 Systolic Blood Pressure NBP [address] NENA HENSLEY MD [facility] 03-15-2021 09:35-0500 Heart rate 81 /min DR NENA HENSLEY MD [facility] 03-15-2021 09:15-0500 Body temperature 96.8 [degF] DR NENA HENSLEY MD [facility] 03-15-2021 09:06-0500 Body temperature 96.8 [degF] DR NENA HENSLEY MD [facility] 03-15-2021 07:35-0500 Body height 154.[address] NENA HENSLEY MD [facility] 03-15-2021 07:35-0500 Body weight 123.[address] NENA HENSLEY MD [facility] 03-15-2021 07:35-0500 Diastolic blood pressure 70 mm[Hg] DR NENA HENSLEY MD [facility] 03-15-2021 07:35-0500 Heart rate 65 /min DR NENA HENSLEY MD [facility] 03-15-2021 07:35-0500 Systolic blood pressure 103 mm[Hg] DR NENA HENSLEY MD [facility] 03-04-2021 09:05-0500 Body height [address] NENA HENSLEY MD [facility] 03-04-2021 09:05-0500 Body temperature 97.52 [degF] DR NENA HENSLEY MD [facility] 03-04-2021 09:05-0500 Body weight [address] NENA HENSLEY MD [facility] 03-04-2021 09:05-0500 diastolic 77 mm[Hg] DR NENA HENSLEY MD [facility] 03-04-2021 09:05-0500 Heart rate 77 /min DR NENA HENSLEY MD [facility] 03-04-2021 09:05-0500 systolic 113 mm[Hg] DR NENA HENSLEY MD [facility] Encounters Encounter Date Encounter Type Care Provider Facility Start: 01-03-2025 ambulatory Berna Michel Facility: [facility] Start: 12-20-2024 End: 12-20-2024 Patient encounter procedure Peace YOUNG -[facility] Work Phone: Start: 12-20-2024 End: 12-20-[address] Berna Michel MD Work Phone: -[facility] Start: 12-16-2024 End: 12-16-2024 ambulatory PEACE LEUNG [employer] Facility:[facility] Start: 12-16-2024 End: 12-16-2024 Patient encounter procedure PEACE LEUNG [employer]CH[employer] [facility] Start: 12-13-2024 End: 12-17-2024 ambulatory BERNA MICHEL MD Facility[place] [place] Start: 12-13-2024 End: 12-17-2024 Outreach Lab PEACE MIRANDAKATHRYN [employer]CHAN[employer] [facility] Start: 12-05-2024 Non-patient / Non-visit Jose Bermudez nd DO -[facility] Start: 12-05-2024 End: 12-05-2024 Admission to same day surgery center Jose Pettit DO -Endoscopy Work Phone: Start: 12-05-2024 End: 12-05-[address] Berna Michel MD Work Phone: -Endoscopy Start: 11-22-2024 ambulatory BERNA MICHEL MD Faci lity:[facility] Start: 10-13-2024 End: 10-13-2024 Patient encounter procedure Peace YOUNG [facility] Work Phone: Start: 10-13-2024 End: 10-13-[address] Berna Michel MD Work Phone: -[facility] Start: 10-03-2024 End: 10-03-2024 ambulatory BERNA MICHEL MD Facility:[facility] [place] Start: 10-03-2024 End: 10-03-2024 Patient encounter procedure BERNA MICHEL MD [facility] Start: 09-12-2024 End: 09-12-2024 Emergency department patient visit DR MARY CARMEN PARDO MD [facility] Start: 08-08-2024 End: 10-07-2024 ambulatory BERNA MICHEL MD Facility[place] [place] Start: 08-08-2024 End: 10-07-2024 Physical therapy management BERNA MICHEL MD [facility] Start: 08-05-2024 End: 08-05-2024 ambulatory BERNA MICHEL MD Facility:[facility] [place] Start: 08-05-2024 End: 08-05-2024 Patient encounter procedure BERNA MICHEL MD [facility] Start: 07-11-2024 End: 07-11-2024 Emergency department patient visit PHIL SMITH MD Facility:[facility] Start: 07-11-2024 End: 07-11-2024 Office outpatient visit 15 minutes Evans Burdick MD Work Phone: [facility] Comment on above: Abdominal pain, left lower quadrant (Primary Dx); History of diverticulosis; MUNOZ (dyspnea on exertion); Hypoxia Start: 07-11-2024 End: 07-11-2024 ambulatory BERNA MICHEL Facility:[id number] Start: 02-17-2024 End: 02-17-2024 ambulatory BERNA MICHEL MD Facility[place] [place] Start: 02-17-2024 End: 02-17-2024 Patient encounter procedure BERNA MICHEL MD [facility] Start: 11-27-2023 End: 11-27-2023 ambulatory BERNA MICHEL MD Facility:[facility] Start: 11-27-2023 End: 11-27-2023 Patient encounter procedure BERNA MICHEL MD [facility] Start: 11-24-2023 End: 11-24-2023 ambulatory BERNA MICHEL MD Facility:[facility] Start: 11-10-2023 End: 11-10-2023 ambulatory BERNA MICHEL MD Facility:[facility] Start: 10-28-2023 End: 10-28-2023 Emergency department patient visit DR ROMAINE CARR DO [facility] Start: 10-28-2023 ambulatory BERNA MICHEL MD Faci lity:B Start: 10-27-2023 End: 10-27-2023 ambulatory BERNA MICHEL MD Facility:B Start: 12-22-2022 End: 12-26-2022 ambulatory BERNA MICHEL MD Facility:B Start: 12-22-2022 End: 12-26-2022 Outreach Lab BERNA MICHEL MD [facility] Start: 06-29-2022 End: 06-29-2022 Emergency department patient visit DR BYRON DÍAZ MD [facility] Start: 11-21-2021 End: 11-21-2021 Emergency department patient visit PHIL SMITH MD [facility] Start: 03-15-2021 End: 03-15-[address] NENA HENSLEY MD [facility] Start: 03-04-2021 End: 03-04-[address] NENA HENSLEY MD [facility] Procedures Date Procedure Procedure Detail Performing Clinician Start: 12-05-[address] Berna Michel MD Work Phone: Start: 04-13-2019 Entire nasal sinus ( body [...] Screening for malign ant neoplasm of colon [facility] Start: 12-05-2024 Colonoscopy flx dx w/collj spec when pfrmd DIAGNOSTIC COLONOSCOPY [facility] Start: 12-05-2024 Endoscopy upper smal l intestine w/biopsy SMALL BOWEL ENDOSCOPY/BIOPSY [facility] Start: 12-05-2024 Patient discharge [facility] Start: 12-13-2023 Covid-19 Vaccine ( season) Covid-19 Vaccine ( season) [facility] Start: 12-13-2023 Influenza vaccination Influenza Vacc ine (#1) [facility] Start: 11-17-2019 Diabetes Screening Diabetes Screenin g [facility] Start: 11-17-2019 Lipid panel Lipid Screening [facility] Start: 11-17-2019 Screening for malign ant neoplasm of colon [facility] Start: 2014 Screening for malign ant neoplasm of breast Mammogram Screening [facility] Start: 10-24-2011 Urine microalbumin profile DTaP,Tdap,Td Vaccine (1 - Tdap) [facility] Start: 11-17-1995 Screening for malign ant neoplasm of cervix Cervical Cancer Screening [facility] Start: 1993 Hepatitis B Vaccine (1 of 3 - 19+ 3-dose series) Hepatitis B Vaccine (1 of 3 - 19+ 3-dose series) [facility] Start: 1992 Anxiety Screening Anxiety Screening [facility] Start: 1992 Depression Screening Depression Scre ening [facility] Start: 1992 Hepatitis C screening Hepatitis C Sc carline [facility] Start: 1992 HIV screening HIV Screening [facility] Liver stiffness by US.transient elastography [facility] Immunizations Immunization Date Immunization Notes Care Provider Natalia franz 08-21-2020 SARS-CoV-2 (COVID-19 ) Ad26 vaccine, recombinant DR NENA HENSLEY MD [facility] 12-08-2016 influenza virus vaccine, unspecified formulation DR NENA HENSLEY MD [facility] 01-11-2015 influenza virus vaccine, unspecified formulation DR ENNA HENSLEY MD [facility] 10-23-2011 tetanus and diphther ia toxoids, adsorbed, preservative free, for adult use (5 Lf of tetanus toxoid and 2 Lf of diphtheria toxoid) DR NENA HENSLEY MD [facility] Payers Date Payer Category Payer Self-pay 2024 Unknown [id number] 2024 Private Health Insurance [id number] 2024 [facility] BLUE CARD PPO OOS [id number] 2024 Unknown [id number] 2024 Unknown [id number] 2023 Unknown [id number] 2023 Private Health Insurance [id number] 2022 Unknown [id number] 1974 Unknown [id number] .840.1.380731.3.579.2. 1974 Unknown [id number] .840.1.069977.3.579.2. 1974 Unknown [id number] .840.1.745530.3.579.2 1974 Unknown [id number] .840.1.730354.3.579.2. 1974 Unknown [id number] 840.1.882943.3.579.2 1974 Unknown [id number] .840.1.662419.3.579.2. 1974 Unknown [id number] .840.1.613695.3.579.2. 1974 Unknown [id number] 840.1.155558.3.579.2. 1974 Unknown [id number] 840.1.873192.3.579.2. 1974 Unknown [id number] .840.1.819490.3.579.2. 1974 Unknown [id number] .840.1.924926.3.579.2. 1974 Unknown [id number] 840.1.462533.3.579.2. 1974 Unknown [id number] 840.1.141274.3.579.2. 1974 Unknown [id number] 2.16.840.1.038590.3.579.2. 627 1974 Unknown [id number] 2.16.840.1.349193.3.579.2. 627 1974 Unknown [id number] 2.16.840.1.687506.3.579.2. 627 1974 Unknown [id number] 2.16.840.1.356369.3.579.2. 627 1974 Unknown [id number] 2.16.840.1.417995.3.579.2. 627 Unknown [id number] Unknown [id number] 2.16.840.1.325716.3.579.2. 462 Unknown [id number] 2.16.840.1.603042.3.579.2. 462 Unknown [id number] 2.16.840.1.407980.3.579.2. 462 Unknown [id number] 2.16.840.1.989593.3.579.2. 462 Unknown [id number] 2.16.840.1.942554.3.579.2. 462 Social History Date Type Detail Facility Start: 11-26-2018 End: 12-01-2024 Never smoked tobacco (finding) [facility] Start: 1975 Sex Assigned At Female [facility] Start: 09-01-2022 Tobacco use and exposure Smoke less tobacco non-user [facility] Start: 07-11-2024 Alcoholic beverage intake Ex-drinker (finding) [facility] Start: 09-01-2022 End: 07-11-2024 History of Social function [facility] Start: 09-01-2022 End: 07-11-2024 Tobacco use panel [facility] Adult Depression Screening Assessment 1 [facility] Start: 07-11-2024 Alcohol Comment very rare [facility] Start: 1975 Sex assigned at Not on file [facility] Sexual Orientation [facility] Start: 10-06-2018 Sex Female (finding) [facility] Tobacco smoking stat us NCIS Unknown if ever smoked [facility] Work Phone: Goals Date Patient Goal Desired Activity /State Functional Status Date Assessment Result Facility 10-28-2023 Functional Status Independent [facility] 10-28-2023 Functional Status Standard Safet y ID band on, Call device within reach, Bed in low position [facility] 06-29-2022 Functional Status Independent [facility] 06-29-2022 Functional Status Standard Safet y ID band on, Call device within reach, Bed in low position, Wheels locked, Safety level maintained [facility] 11-21-2021 Functional Status Standard Safet y ID band on, Call device within reach, Bed in low position, Wheels locked, Upper/Half-Length side-rails up, Bedside Cart Locked, Safety level maintained [facility] Mental Status Date Assessment Result Facility 12-05-2024 Cognitive function Voice/Name [facility] Work Phone: 10-28-2023 Mental Status Orientation Oriented x 4 [facility] 06-29-2022 Mental Status Orientation Oriented x 4 [facility] 11-21-2021 Mental Status Orientation Oriented x 4 [facility] Clinical Notes 03-15-2021 to 12-16-2024 Note Date & Type Note Facility 12-16-2024 Note Exam Date Time Procedure Performing Provider Status 12/16/24 7:59 AM US Pelvis Non-OB W/Transvaginal LALITHA S TEPHEN W DO; Auth (Verified) [id number] ORIGINAL EXAMINATION: TRANSVAGINAL PELVIC ULTRASOUND 12/16/2024 TECHNIQUE: Transvaginal pelvic ultrasound was performed. COMPARISON: CT abdomen pelvis 09/12/2024 HISTORY: ORDERING SYSTEM PROVIDED HISTORY: Reason for Exam: pelvic mass, pain with intercourse FINDINGS: Measurements: Uterus: 7.1 x 3.0 x 2.5 cm Endometrial stripe: 3.2 mm Right Ovary:Not measured. Left Ovary: 1.8 x 1.3 x 1.2 cm Ultrasound Findings: Uterus: Uterus demonstrates normal myometrial echotexture. Endometrial stripe: Endometrial stripe is within normal limits. Right Ovary: Right ovary is not diagnostically imaged. Left Ovary: Left ovary is within normal limits. There is normal venous and arterial blood flow within the visualized left ovary. Free Fluid: No evidence of free fluid. IMPRESSION: 1. Normal sonographic appearance of the uterus and left ovary. 2. Nonvisualization of the right ovary. Interpreted by: Sigifredo Kim DO Preliminary Report By: Sigifredo Kim DO Electronically signed By Sigifredo Kim DO Dictated Date: 12/16/2024 9:23:59 AM Prelim Date: 12/16/2024 9:25:41 AM Sign Date: 12/16/2024 9:25:41 AM Ordering Provider: PEACE LEUNG [facility]09-02-2025 NoteEvent Display: GY Interp Adequacy SATISFACTORY FOR EVALUATION Endocervical/Transformational zone component present [place], [place] (ASCP) Kimber:VERIFY; Authored Date: [id number] [facility] 08-25-2025 Consult note [facility] Medical Records Department [address] [place] [address] Anesthesia Postop Eval II 12/05/24941 MR#: [id number] Acct: [id number] Name: RAIN MURPHY Rep #: [id number] : 1975 49 From: James Rivera MD PCP: Dr. Berna Michel MD Status:[facility] Y Race: C Location: [address] Anesthesia Postop Eval I Sum Postop Eval Completion status Anesthesia document: Postop Eval 1 completed: Yes Anesthesia Postop Eval I Summary Anesthesia Postop Eval I Summary: Anesthesia Postop Eval I: Assessment Summary Airway patent Yes 12/05/24 09:17 [email or web address] Spontaneous unlabored Yes 12/05/24 09:17 [email or web address] respirations Mental status Awake 12/05/24 09:17 [email or web address] nausea No 12/05/24 09:17 [email or web address] Vomiting No 12/05/24 09:17 [email or web address] Anesthesia Postop Eval I: Fluid Summary Crystalloid volume administer 400 12/05/24 09:17 [email or web address] (ml) Colloids volume administered ( ml) Blood Product volume administered (ml) Total IV fluid infused 400 12/05/24 09:17 [email or web address] Anesthesia Postop Eval I: Summary Notes Anesthesia Complication No 12/05/24 09:17 [email or web address] Anesthesia Complication Comment: Post-operative progress note Anesthesia: Postop Eval II Evaluation Mental status: Awake Pain Level: 0 nausea: No Vomiting: No Complications Anesthesia Complication: No 12/05/24 0942 D> Date _ James iRvera MD Cosigner Signature: Date CC: ~ Signed [facility]08-25-2025 Procedure note [facility] Medical Records Department [address] [place] [address] Colonoscopy Report MR#: [id number] Acct: [id number] Name: RAIN MURPHY Rep #: [id number] : 1975 49 From: Jose Pettit DO PCP: Dr. Berna Michel MD Status:[facility] Patient Name: Rain Murphy Procedure Date: 12/05/2024 8:54 AM Date of : 1975 Age: 49 Procedure: Colonoscopy Indications: Screening for colorectal malignant neoplasm Providers: Jose Pettit DO Referring MD: Berna Michel Medicines: Monitored Anesthesia Care Patient Profile: This is a 49 year old female. Refer to note in patient chart for documentation of history and physical. Patient has symptoms of acute left upper quadrant abdominal pain, acute epigastric abdominal pain, acute dyspepsia and acute nausea. Last Colonoscopy: none. The patient's first colonoscopy is today. Complications: No immediate complications. Procedure: Pre-Anesthesia Assessment: - Prior to the procedure, a History and Physical was performed, and patient medications and allergies were reviewed. The patient is competent. The risks and benefits of the procedure and the sedation options and risks were discussed with the patient. All questions were answered and informed consent was obtained. Patient identification and proposed procedure were verified by the physician in the pre-procedure area. Mental Status Examination: alert and oriented. Airway Examination: normal oropharyngeal airway and neck mobility. Respiratory Examination: clear to auscultation. CV Examination: normal. Prophylactic Antibiotics: The patient does not require prophylactic antibiotics. Prior Anticoagulants: The patient has taken no anticoagulant or antiplatelet agents except for NSAID medication. ASA Grade Assessment: II - A patient with mild systemic disease. After reviewing the risks and benefits, the patient was deemed in satisfactory condition to undergo the procedure. The anesthesia plan was to use monitored anesthesia care (MAC). Immediately prior to administration of medications, the patient was re-assessed for adequacy to receive sedatives. The heart rate, respiratory rate, oxygen saturations, blood pressure, adequacy of pulmonary ventilation, and response to care were monitored throughout the procedure. The physical status of the patient was re-assessed after the procedure. After I obtained informed consent, the scope was passed under direct vision. Throughout the procedure, the patient's blood pressure, pulse, and oxygen saturations were monitored continuously. The Colonoscope was introduced through the anus and advanced to the terminal ileum. The colonoscopy was performed without difficulty. The patient tolerated the procedure well. The quality of the bowel preparation was adequate. The terminal ileum, ileocecal valve, appendiceal orifice, and rectum were photographed. Scope In: 8:55:58 AM Scope Withdrawal Time 0 hours 8 minutes 7 seconds Scope Out: 9:07:39 AM Total Procedure Duration Time 0 hours 11 minutes 41 seconds Findings: The perianal and digital rectal examinations were normal. Many small and large-mouthed diverticula were found in the recto-sigmoid colon, sigmoid colon and descending colon. The exam was otherwise without abnormality on direct and retroflexion views. Non-bleeding internal hemorrhoids were found during retroflexion. The hemorrhoids were Grade III (internal hemorrhoids that prolapse but require manual reduction). Impression: - Diverticulosis in the recto-sigmoid colon, in the sigmoid colon and in the descending colon. - The examination was otherwise normal on direct and retroflexion views. - No specimens collected. Recommendation: - Discharge patient to home. - Resume previous diet. - Continue present medications. - Repeat colonoscopy in 10 years for screening purposes. Procedure Code(s): --- Professional --- 03553, Colonoscopy, flexible; diagnostic, including collection of specimen(s) by brushing or washing, when performed (separate procedure) CPT copyright 2021 [employer]. All rights reserved. The codes documented in this report are preliminary and upon logistics coordinator review may be revised to meet current compliance requirements. Jose Pettit DO 12/05/2024 9:22:01 AM This report has been signed electronically. Number of Addenda: 0 Note Initiated On: 12/05/2024 8:54 AM 12/05/24921 Date _ Jose Pettit DO Cosigner Signature: Date (if indicated) CC: Dr. Berna Michel MD; Jose Pettit DO ~ Date Dictated: 12/05/2454 Date Transcribed: Automatic Dispenser Mechanic: RF Signed [facility]08-25-2025 Procedure note [facility] Medical Records Department [address] [place] [address] Provation Physician Letter MR#: [id number] Acct: [id number] Name: RAIN MURPHY Rep #: [id number] : 1975 49 From: Jose Pettit DO PCP: Dr. Berna Michel MD Status:[facility] 12/05/2024 Berna Michel Re : Colonoscopy procedure for Rain Murphy Dear Dante This procedure was performed on Thursday, December 05, 2024. My impressions and recommendations are as follows: Impressions : - Diverticulosis in the recto-sigmoid colon, in the sigmoid colon and in the descending colon. - The examination was otherwise normal on direct and retroflexion views. - No specimens collected. Recommendations : - Discharge patient to home. - Resume previous diet. - Continue present medications. - Repeat colonoscopy in 10 years for screening purposes. My findings are described in the full procedure note, which is enclosed. If I can be of further assistance, please feel free to contact me at . Sincerely, Jose Pettit DO 12/05/2024 9:22:01 AM This report has been signed electronically. 12/05/24921 Date _ Jose Pettit DO Cosigner Signature: Date (if indicated) CC: Dr. Berna Michel MD; Jose Pettit DO ~ Date Dictated: 12/05/24853 Date Transcribed: Automatic Dispenser Mechanic: RF Signed [facility]08-25-2025 Procedure note [facility] Medical Records Department [address] [place] [address] EGD Report MR#: [id number] Acct: [id number] Name: RAIN MURPHY Rep #: [id number] : 1975 49 From: Jose Pettit DO PCP: Dr. Berna Michel MD Status:[facility] Patient Name: Rain Murphy Procedure Date: 12/05/2024 8:36 AM Date of : 1975 Age: 49 Procedure: Upper GI endoscopy Indications: Epigastric abdominal pain Providers: Jose Pettit DO Referring MD: Berna Michel Medicines: Monitored Anesthesia Care Patient Profile: This is a 49 year old female. Refer to note in patient chart for documentation of history and physical. Patient has symptoms of acute left upper quadrant abdominal pain, acute epigastric abdominal pain, acute dyspepsia and acute nausea. Complications: No immediate complications. Procedure: Pre-Anesthesia Assessment: - Prior to the procedure, a History and Physical was performed, and patient medications and allergies were reviewed. The patient is competent. The risks and benefits of the procedure and the sedation options and risks were discussed with the patient. All questions were answered and informed consent was obtained. Patient identification and proposed procedure were verified by the physician in the pre-procedure area. Mental Status Examination: alert and oriented. Airway Examination: normal oropharyngeal airway and neck mobility. Respiratory Examination: clear to auscultation. CV Examination: normal. Prophylactic Antibiotics: The patient does not require prophylactic antibiotics. Prior Anticoagulants: The patient has taken no anticoagulant or antiplatelet agents except for NSAID medication. ASA Grade Assessment: II - A patient with mild systemic disease. After reviewing the risks and benefits, the patient was deemed in satisfactory condition to undergo the procedure. The anesthesia plan was to use monitored anesthesia care (MAC). Immediately prior to administration of medications, the patient was re-assessed for adequacy to receive sedatives. The heart rate, respiratory rate, oxygen saturations, blood pressure, adequacy of pulmonary ventilation, and response to care were monitored throughout the procedure. The physical status of the patient was re-assessed after the procedure. After obtaining informed consent, the endoscope was passed under direct vision. Throughout the procedure, the patient's blood pressure, pulse, and oxygen saturations were monitored continuously. The Colonoscope was introduced through the mouth, and advanced to the third part of the duodenum. Small bowel enteroscopy was deemed necessary. The upper GI endoscopy was accomplished without difficulty. The patient tolerated the procedure well. Scope In: 8:50:20 AM Scope Out: 8:54:00 AM Total Procedure Duration Time 0 hours 3 minutes 40 seconds Findings: Grade I, small (< 5 mm) varices were found in the lower third of the esophagus. Patchy mildly erythematous mucosa without bleeding was found in the gastric body. Biopsies were taken with a cold forceps for histology. Verification of patient identification for the specimen was done. Estimated blood loss was minimal. Biopsies were taken with a cold forceps for Helicobacter pylori testing. Verification of patient identification for the specimen was done. Estimated blood loss was minimal. No gross lesions were noted in the entire examined duodenum. A few small hyperplastic polyps with no stigmata of recent bleeding were found in the cardia and in the gastric fundus. Impression: - Grade I and small (< 5 mm) esophageal varices. - Erythematous mucosa in the gastric body. Biopsied. - No gross lesions in the entire examined duodenum. Recommendation: - Discharge patient to home. - Resume previous diet. - Continue present medications. - Await pathology results. Procedure Code(s): --- Professional --- 18227, Small intestinal endoscopy, enteroscopy beyond second portion of duodenum, not including ileum; with biopsy, single or multiple CPT copyright 2021 [employer]. All rights reserved. The codes documented in this report are preliminary and upon logistics coordinator review may be revised to meet current compliance requirements. Jose Pettit DO 12/05/2024 9:19:46 AM This report has been signed electronically. Number of Addenda: 0 Note Initiated On: 12/05/2024 8:36 AM 12/05/24918 Date _ Jose Pettit DO Cosigner Signature: Date (if indicated) CC: Dr. Berna Michel MD; Jose Pettit DO ~ Date Dictated: 12/05/24835 Date Transcribed: Automatic Dispenser Mechanic: RF Signed [facility]08-25-2025 Procedure note [facility] Medical Records Department [address] [place] [address] Provation Physician Letter MR#: [id number] Acct: [id number] Name: RAIN MURPHY Rep #: [id number] : 1975 49 From: Jose Pettit DO PCP: Dr. Berna Michel MD Status:[facility] 12/05/2024 Berna Michel Re : Upper GI endoscopy procedure for Rain Murphy Dear Dante This procedure was performed on Thursday, December 05, 2024. My impressions and recommendations are as follows: Impressions : - Grade I and small (< 5 mm) esophageal varices. - Erythematous mucosa in the gastric body. Biopsied. - No gross lesions in the entire examined duodenum. Recommendations : - Discharge patient to home. - Resume previous diet. - Continue present medications. - Await pathology results. My findings are described in the full procedure note, which is enclosed. If I can be of further assistance, please feel free to contact me at . Sincerely, Jose Pettit DO 12/05/2024 9:19:46 AM This report has been signed electronically. 12/05/24918 Date _ Jose Pettit DO Cosignnevaeh Signature: Date (if indicated) CC: Dr. Berna Michel MD; Jose Pettit DO ~ Date Dictated: 12/05/24835 Date Transcribed: Automatic Dispenser Mechanic: RF Signed [facility]08-25-2025 Consult note [facility] Medical Records Department [address] [place] [address] Anesthesia Postop Eval I 12/05/24915 MR#: [id number] Acct: [id number] Name: RAIN MURPHY Rep #: [id number] : 1975 49 From: Talon Parmar PCP: Dr. Berna Michel MD Status:[facility] Y Race: C Location: [place] [address] Anesthesia: Postop Eval I Current Vital Signs Temperature: 97.5 F Pulse Rate: 66 Blood Pressure: 105/66 Respiratory Rate: 16 Pulse Ox: 96 Oxygen Delivery Method: Room Air Assessment Airway patent: Yes Spontaneous unlabored respirations: Yes Mental status: Awake nausea: No Vomiting: No Anesthesia Complication: No Fluid Hydration Crystalloid volume administer (ml): 400 Total IV fluid infused: 400 Progress Note Anesthesia document: Postop Eval 1 completed: Yes 12/05/24916 > Date _ Talon Alcantaraignnevaeh Signature: Date CC: ~ Signed [facility]08-25-2025 Consult note [facility] Medical Records Department [address] [place] [address] Pre-Anesthesia Evaluation 12/05/24818 MR#: [id number] Acct: [id number] Name: RAIN MURPHY Rep #: [id number] : 1975 49 From: James Rivera MD PCP: Dr. Berna Michel MD Status:REG [facility] Y Race: C Location: [place] [address] ASA Classification* ASA Classification ASA Classification: 3 Assessment & Plan Anesthesia* Anesthesia Assessment Anesthesia Assessment: Discussed sedation and/or anesthesia options, risks, benefits, and alternatives with patient/parents/legal guardian/POA. Questions invited. The patient/parents/legal guardian/POA seems to understand and agrees to proceedwith anesthesia plan. Reviewed the physical assessment, medical history, allergy history and patient home medications list prior to surgery/procedure/anesthetic and documented any changes. Performed airway and anesthesia risk assessments. 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 When Was Last Pacemaker Check QUESTION #4 FULL TEXT: You/Your Family Experience fever (hyperthermia) with Anesthesia Last Oral Intake Last Oral intake: Last Oral Intake NPO since 04:30 12/05/24 07:32 Meds taken in AM with sips of Yes 12/05/24 07:32 water? 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: PONV - carpet floor layer apprentice Female Yes 12/01/24 10:35 HX of Motion Sickness No 12/01/24 10:35 HX of N/V After Surgery Yes 12/01/24 10:35 Non-Smoker Yes 12/01/24 10:35 Duration of Surgery greater No 12/01/24 10:35 than 60 minutes Number of Risk Factors 3 12/01/24 10:35 PONV Score Moderate Risk 12/01/24 10:35 Height & Weight Height & Weight: Anesthesia: Height & Weight Height 5 ft 1 in 12/05/24 07:32 Weight: 140 kg 12/05/24 07:32 Body Mass Index (BMI) 58.3 12/05/24 07:32 Respiratory Assessment Respiratory Assessment - carpet floor layer apprentice: Respiratory Tract Infection Hx - carpet floor layer apprentice Hx Respiratory Tract Infection No 12/01/24 10:35 STOP Sleep Apnea STOP Sleep Apnea - carpet floor layer apprentice: STOP Sleep Apnea - carpet floor layer apprentice Hx Hypertension Yes 12/01/24 10:35 Hx Sleep [...] than talking or can be heard through closeddoors)? 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 Specify any problems Hx of Preganancy in last 3 No 12/01/24 10:35 Months Nurse Filling Out Transfusion [facility] 12/01/24 10:35 & Questions: Date: 12/01/24 12/01/24 10:35 Time: 10:46 12/01/24 10:35 Patient unable to answer at this time (ie. 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: /Reproductive Hx- carpet floor layer apprentice Hx Now No 12/01/24 10:35 Gestational Age (in weeks): EDC: Hx Hx Para Hx Section SAB No 12/01/24 10:35 Active Medications Active Medications: Current Medications Generic Name Dose Route Start Last Admin Trade Name Freq PRN Reason Stop Dose Admin Lactated Ringer's 1,000 mls @ 15 mls/hr 12/05/24 07:15 12/05/24 07:42 IV 15 mls/hr .Q48H FIFI Administration PFSH Medical History H/O psoriasis Post-menopausal Wears glasses Depression Anxiety Bruising History of steroid therapy Rheumatoid arthritis DVT (deep venous thrombosis) Easy bruising Migraine headache H/O hemorrhoids History of IBS History of diverticulitis Gastric reflux Shortness of breath on exertion History of echocardiogram Hypertension Home Medications ?Medication ?Instructions ?Recorded ?Last Taken ?Type cholecalciferol (vitamin D3) 1,250 1,250 mcg PO QWEEK 10/13/24 11/28/24 History mcg (50,000 unit) capsule clonazepam 1 mg tablet 1 mg PO 4X/DAY PRN anxiety 0 10/13/24 12/04/24 History dicyclomine 20 mg tablet 20 mg PO TID PRN abdominal p ain 10/13/24 Unknown History escitalopram oxalate 20 mg tablet 20 mg PO QDAY 12/04/24 History hydroxychloroquine 200 mg tablet 200 mg PO BID 5 12/04/24 History metoprolol tartrate 25 mg tablet 25 mg PO BID 10/13/24 12/05/24 History pantoprazole 40 mg tablet,delayed 40 mg PO BID 5 12/05/24 History release Allergy/AdvReac Type Severity Reaction Status Date / Time Sulfa (Sulfonamide Allergy NEEDS Verified 12/05/24 07:30 Antibiotics) FOLLOW-UP sulfamethoxazole (From Allergy NEEDS Verified 12/05/24 07:30 Bactrim) FOLLOW-UP trimethoprim (From Bactrim) Allergy NEEDS Verified 12/05/24 07:30 FOLLOW-UP Surgical History History of surgery History of nasal septoplasty History of cholecystectomy History of carpal tunnel release of both wrists Social History Smoking Status: Never smoker Review of Systems (Anesthesia) ROS Narrative System reviewed and no additional complaints, except as documented. Physical Exam Const alert and oriented x3 Orientation / Consciousness: awake Resp normal respiratory effort and normal air movement Cardio regular rate and regular rhythm 12/05/24 0820 D> Date _ James Rivera MD Cosigner Signature: Date CC: ~ Signed [facility]08-25-2025 History and physical note [facility] Medical Records Department [address] [place] [address] History & Physical Exam 12/05/24 08 MR#: [id number] Acct: [id number] Name: RAIN MURPHY Rep #: [id number] : 1975 49 From: Jose Pettit DO PCP: Dr. Berna Michel MD Status:[facility] Location: [place] [address] HPI - General General Date of Admission: 12/05/24 Date of Service: 12/05/24 Chief Complaint: Intermittent constipation with abdominal pain followed by occasional nausea vomiting with breakthrough heartburn HPI Narrative RAIN MURPHY, is a 49 F who presents with the Chief Complaint: constipation and abdominal pain [facility] ED 6.06.07 wiht LLQ pain. Pt with PMHx of diverticulitis. SHe hasbeen having nausea but no vomiting. Blood work [...] for awhile. This is accompanied by left lowerquadrant crampingand n/v. She does not take any OTC laxatives or fiber supplementation. Last colonoscopy was in 2020 with polyps. Last EGD in 2021. SHe takes PPi twice a dayand has breakbothoura heartburn on occasion. [facility] Medical History H/O psoriasis Post-menopausal Wears glasses Depression Anxiety Bruising History of steroid therapy Rheumatoid arthritis DVT (deep venous thrombosis) Easy bruising Migraine headache H/O hemorrhoids History of IBS History of diverticulitis Gastric reflux Shortness of breath on exertion History of echocardiogram Hypertension Home Medications ?Medication ?Instructions ?Recorded ?Last Taken ?Type cholecalciferol (vitamin D3) 1,250 1,250 mcg PO QWEEK 10/13/24 11/28/24 History mcg (50,000 unit) capsule clonazepam 1 mg tablet 1 mg PO 4X/DAY PRN anxiety 0 10/13/24 12/04/24 History dicyclomine 20 mg tablet 20 mg PO TID PRN abdominal p ain 10/13/24 Unknown History escitalopram oxalate 20 mg tablet 20 mg PO QDAY 12/04/24 History hydroxychloroquine 200 mg tablet 200 mg PO BID 5 12/04/24 History metoprolol tartrate 25 mg tablet 25 mg PO BID 10/13/24 12/05/24 History pantoprazole 40 mg tablet,delayed 40 mg PO BID 5 12/05/24 History release Allergy/AdvReac Type Severity Reaction Status Date / Time Sulfa (Sulfonamide Allergy NEEDS Verified 12/05/24 07:30 Antibiotics) FOLLOW-UP sulfamethoxazole (From Allergy NEEDS Verified 12/05/24 07:30 Bactrim) FOLLOW-UP trimethoprim (From Bactrim) Allergy NEEDS Verified 12/05/24 07:30 FOLLOW-UP Surgical History History of surgery History of nasal septoplasty History of cholecystectomy History of carpal tunnel release of both wrists Social History Smoking Status: Never smoker ROS Constitutional Constitutional: Denies fatigue, fever(s), poor appetite, weight gain or weight loss Gastrointestinal Gastrointestinal: Denies belching, bloating, change in bowel habits, change in stool character, chewing difficulty, coffee ground emesis, constipation, cramping, diarrhea, dyspepsia, dysphagia, earlysatiety, excessive flatus, fecalincontinence, heartburn, hematemesis, hematochezia, hemorrhoids, loose stools, melena, nausea, odynophagia, rectal bleeding, tenesmus, vomiting or weight changes Vital Signs Vital Signs Vital Signs: 12/05/24 07:32 12/05/24 07:32 Temperature 97.5 F L Temperature Source Temporal Pulse Rate 71 Respiratory Rate 20 H Respiratory Pattern Normal Blood Pressure 116/76 Blood Pressure Mean 89 Blood Pressure Source Monitor Blood Pressure Position Semi-Fowlers Blood Pressure Location Right Arm Pulse Ox 94 Oxygen Delivery Method Room Air Weight Weight: 308 lb 10.354 oz Body Mass Index (BMI) 58.3 Physical Exam Const alert, oriented x3, no apparent distress and healthy appearing General Appearance: cooperative GI normal to inspection, nondistended, normoactive bowel sounds, soft to palpation,non-tender and non-distended Percussion: normal to percussion Rectal Exam: deferred Assessment & Plan Assessment/Plan (1) GERD (gastroesophageal reflux disease): (2) Hx of colonic polyps: (3) Constipation: PLAN: Assessment and Plan Assessment and Plan (1) Constipation: Status: Acute Plan: Rain is a 48 yo female pt with PMHXx of diverticulitis, colonic polyps and constipation here today for worsening constipation over the past few months. SHehas daily bm but are not complete. SHe [...] colonoscopy -Start miralax -Consider Linzess -f/u after procedures (2) Hx of colonic polyps: Status: Acute (3) GERD (gastroesophageal reflux disease): Status: Acute 12/05/24805 Cosigner Signature (if applicable): CC: Dr. Berna Michel MD; Jose Pettit, ~ Signed [facility]08-25-2025 [facility] Medical Records Department [address] [place] [id number] History Physical Exam 12/05/24 0804 MR#: [id number] Acct: [id number] Name: RAIN MURPHY Rep #: [id number] : 1975 49 From: Jose Pettit DO PCP: Dr. Berna Michel MD Status:[facility] Location: [place] [address] HPI - General General Date of Admission: 12/05/24 Date of Service: 12/05/24 Chief Complaint: Intermittent constipation with abdominal pain followed by occasional nausea vomiting with breakthrough heartburn HPI Narrative RAIN MURPHY, is a 49 F who presents with the Chief Complaint: constipation and abdominal pain [facility] ED 6.2.25 wiht LLQ pain. Pt [...] day and has breakbothoura heartburn on occasion. [facility] Medical History H/O psoriasis Post-menopausal Wears glasses Depression Anxiety Bruising History of steroid therapy Rheumatoid arthritis DVT (deep venous thrombosis) Easy bruising Migraine headache H/O hemorrhoids History of IBS History of diverticulitis Gastric reflux Shortness of breath on exertion History of echocardiogram Hypertension Home Medications ???Medication ???Instructions ???Recorded ???Last Taken ???Type cholecalciferol (vitamin D3) 1,250 1,250 mcg PO QWEEK 10/13/2411/11 History mcg (50,000 unit) capsule clonazepam 1 mg tablet 1 mg PO 4X/DAY PRN anxiety 5 12/04/24 History dicyclomine 20 mg tablet 20 mg PO TID PRN abdominal pain Unknown History escitalopram oxalate 20 mg tablet 20 mg PO QDAY 10/13/24 12/04/24 H istory hydroxychloroquine 200 mg tablet 200 mg PO BID 10/13/24 12/04/24 Hi story metoprolol tartrate 25 mg tablet 25 mg PO BID 10/13/24 12/05/24 His tory pantoprazole 40 mg tablet,delayed 40 mg PO BID 10/13/24 12/05/24 Hi story release Allergy/AdvReac Type Severity Reaction Status Date / Time Sulfa (Sulfonamide Allergy NEEDS Verified 12/05/24 07:30 Antibiotics) FOLLOW-UP sulfamethoxazole (From Allergy NEEDS Verified 12/05/24 07:30 Bactrim) FOLLOW-UP trimethoprim (From Bactrim) Allergy NEEDS Verified 12/05/24 07:30 FOLLOW-UP Surgical History History of surgery History of nasal septoplasty History of cholecystectomy History of carpal tunnel release of both wrists Social History Smoking Status: Never smoker ROS Constitutional Constitutional: Denies fatigue, fever(s), poor appetite, weight gain or weight loss Gastrointestinal Gastrointestinal: Denies belching, bloating, change in bowel habits, change in stool character, chewing difficulty, coffee ground emesis, constipation, cramping, diarrhea, dyspepsia, dysphagia, early satiety, excessive flatus, fecal incontinence, heartburn, hematemesis, hematochezia, hemorrhoids, loose stools, melena, nausea, odynophagia, rectal bleeding, tenesmus, vomiting or weight changes Vital Signs Vital Signs Vital Signs: 12/05/24 07:32 12/05/24 07:32 Temperature 97.5 F L Temperature Source Temporal Pulse Rate 71 Respiratory Rate 20 H Respiratory Pattern Normal Blood Pressure 116/76 Blood Pressure Mean 89 Blood Pressure Source Monitor Blood Pressure Position Semi-Fowlers Blood Pressure Location Right Arm Pulse Ox 94 Oxygen Delivery Method Room Air Weight Weight: 308 lb 10.354 oz Body Mass Index (BMI) 58.3 Physical Exam Const alert, oriented x3, no apparent distress and healthy appearing General Appearance: cooperative GI normal to inspection, nondistended, normoactive bowel sounds, soft to palpation, non-tender and non- distended Percussion: normal to percussion Rectal Exam: deferred Assessment Plan Assessment/Plan (1) GERD (gastroesophageal reflux disease): (2) Hx of colonic polyps: (3) Constipation: PLAN: Assessment and Plan Assessment and Plan (1) Constipation: Status: Acute Plan: Rain is a 48 yo female pt with PMHXx of diverticulitis, colonic polyps and constipation here today for worsen (more content not included)...[facility] 10-13-2024 Evaluation note* Diagnosis Onset Date Resolution Status Admit Date Constipation acute October 13 7:16am GERD (gastroesophageal reflu x disease) acute October 13, 2024 7 :16am Hx of colonic polyps acute October 13, 2024 7:16am Constipation acute December 05, 2024 7:08am GERD (gastroesophageal reflu x disease) acute December 05 7:08am Hx of colonic polyps acute 2024 7:08am [facility] Work Phone: 1(702) 466-286707-03-2025 Evaluation note* Diagnosis Onset Date Resolution Status Admit Date Constipation acute October 13 7:16am GERD (gastroesophageal reflu x disease) acute October 13, 2024 7 :16am Hx of colonic polyps acute October 13, 2024 7:16am Constipation acute December 05, 2024 7:08am GERD (gastroesophageal reflu x disease) acute December 05 7:08am Hx of colonic polyps acute Augu 2024 7:08am Esophageal varices acute 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 These include apple sauce, [...] increase stomach acid. Don't use aspirin or wjgs-xkt-xodmwdu pain and fever medicines, if possible. This includes nonsteroidal anti-inflammatory drugs (NSAIDs). Lose excess weight. Finish eating at least 2 hours before you go to bed or lie down. Raise the head of your bed. [id number] [employer]. [address] [place] [address], [place] [address]. All rights reserved. This information is not intended as a substitute for professional medical care. Always follow yourhealthcare professional's instructions. Follow Up Care 09/12/2024 13:26:52 With:BERNA MICHEL MD Address: [address] [place] [address]- When:2-4 days [facility] 06-02-2025 Emergency department Discharge summary Discharge Instructions Thank you for allowing [facility] to assist you with your healthcare needs. The following is importantdischarge information regarding your hospital visit. Diagnosis from Today's Visit Abdominal pain What to Do Next Instructions from Your Care Team No qualifying data available. Post Acute Orders No qualifying data available. You Need to Schedule the Following Appointments Follow Up with BERNA MICHEL MD When:Within 2-4 days Where:[place] [address]- Allergies Bactrim Blisters propofol Anxiety sulfa drugs Medications Please ask your primary doctor or pharmacist before taking any other medication not listed, including over the counter drugs, herbal medications, vitamins and or supplements as they may interact withur home medications. What How Much When Why [...] foods again, start with small amounts of ovlz-at-yiiolb, low- fat foods. These include apple sauce, [...] increase stomach acid. Don't use aspirin or jguv-yxd-oevtdbt pain and fever medicines, if possible. This includes nonsteroidal anti-inflammatory drugs (NSAIDs). Lose excess weight. Finish eating at least 2 hours before you go to bed or lie down. Raise the head of your bed. [id number] [employer]. [address] [place] [address], [place] [address]. All rights reserved. This information is not intended as a substitute for professional medical care. Always follow yourhealthcare professional's instructions. Additional Information VACCINATE! IT SAVES LIVES! Members of the community who have not yet received the COVID-19 vaccine and would like to receive it can visit one of [facility] vaccine clinics. There are many vaccine clinic locations within the [facility]. For locations and available times, please visit [email or web address] It is important to note that some COVID mobile vaccine clinics are held outdoors and may be canceled in rainy or stormy conditions. To learn more about pediatric vaccinations (ages 5-11), we invite you to visit the [facility] webpage. [email or web address]/[email or web address] [email or web address] learn more about the COVID-19 vaccine, we invite you to visit the CDC website for a list of frequently asked questions. https://www.cdc.gov/coronavirus/2019-ncov/vaccines/faq.html [facility] Patient Portal Access Instructions: Stay connected with your healthcare team and access your personal medical information anytime with the [facility] Patient Portal. If you would like a full copy of your medical records please contact the [facility] Medical Records Department Thursday through Thursday between 8a.m. and 4:30p.m. Please follow the directions below to access the portal: 1.Access the email account you provided upon registration to the hospital.2.Look for an invitation email from [facility].3.Open the email and access the invitation link: Accept Invitation to [facility]4.Fill in the required de la garza to create your account. Sign into [email or web address].[email or web address] with your username and password that you [...] you will allow to register on the [facility] Patient Portal for access to your information. You can also access the [facility] Patient Portal on the [employer]. Simply click on "Health Records" under "HealthData" and then click on the [employer] logo. HOW TO SAFELY DISPOSE OF PRESCRIPTION [...] Call your local pharmacy or go to [email or web address] to find one close to you.3.Make use of household items: Use cat litter or old coffee grounds to dispose medications if other options arenot available. Mix your drugs with these household products, seal them in an airtight container andthrow it into the garbage. Call [facility]: [phone] to be sure your drugs can be [...] been reviewed and explained to me and ISULTANA MELANIE L understand my current condition and have read and understand these discharge instructions. I have received a written copy of the plan/instructions. If I have questions, I am aware that I should contact my doctor. Patient/Scan Coordinator Signature: Date/Time: Relationship to Patient: Witness Name/Signature: Date/Time: [facility]06-02-2025 Note* Exam Date Time Procedure Performing Provider Status 09/12/24 2:[address] Abd/Pelvis w/ IV Contrast Only GRACE AGUILAR MD; Auth (Verified) [id number] ORIGINAL EXAMINATION: CT OF THE ABDOMEN AND [...] Mild diverticulosis without diverticulitis. Interpreted by: Grace Aguilar MD Preliminary Report By: Grace Aguilar MD Electronically signed By Grace Aguilar MD Dictated Date: 09/12/2024 2:32:51 PM Prelim Date: 09/12/2024 2:36:04 PM Sign Date: 09/12/2024 2:36:04 PM Ordering Provider: ROSA EPSTEIN [facility] [id number] NoteHNO ID: [id number] Author: EVANS BURDICK MD Service: ? Author Type: Physician Type: Progress Notes Filed: 07/11/2024 12:29 Note Text: [facility] Gisel Murphy is a 48 year old [...] hematuria. She has been referred to a plant protection officer for dyspnea on exertion. Prior colon evaluations [...] treatment. She generally has her care at [facility] and will go to the ER therefore [...] The patient was other (comment) (Referred to [facility] ER). [facility]03-31-2025 History of Present illness Narrative* Evans Burdick MD - 07/11/2024 11:43 AM EDT [facility] NORBERT Murphy is a 48 [...] She denies any recent travel or s ick contacts. No recent antibiotic use. She denies chest pain, cough, or feeling lightheaded. Denies urinary frequency, urgency, or hematuria. She has been referred to a plant protection officer for dyspnea on exertion. Prior colon evaluations [...] treatment. She generally has her care at [facility] and will go to the ER therefore [...] The patient was other (comment) (Referred to [facility] ER). [facility]* Exam Date Time Procedure Performing Provider Status 11/27/23 2:59 PM Echocardiogram, Adult - CV Auth (Verified) [facility] 07-17-2024 Evaluation + Plan note Future Scheduled Tests Radiology* CT Angiography Chest w/ Contrast 10/28/23 [facility] 07-17-2024 Hospital Discharge instructions Patient Education [...] or as directed by your healthcare provider [phone] [employer]. [address] [place] [address]. All rights reserved. This information is not intended as a substitute for professional medical care. Always follow yourhealthcare professional's instructions. Follow Up Care 10/28/2023 09:34:39 With:BERNA MICHEL MD Address: [address] [facility] [address] [facility] [place] [address]- When:2-4 days [facility] 07-17-2024 Note Discharge Instructions Thank you for allowing [facility] to assist you with your healthcare needs. The following is importantdischarge information regarding your hospital visit. Diagnosis from Today's Visit Dyspnea What to Do Next Instructions from Your Care Team No qualifying data available. Post Acute Orders No qualifying data available. You Need to Schedule the Following Appointments Follow Up with BERNA MICHEL MD When:Within 2-4 days Where:[address] [facility] [place] [address]- Allergies Bactrim Blisters propofol Anxiety sulfa drugs [...] or as directed by your healthcare provider [phone] [employer]. [address] [place] [address]. All rights reserved. This information is not intended as a substitute for professional medical care. Always follow yourhealthcare professional's instructions. Additional Information VACCINATE! IT SAVES LIVES! Members of the community who have not yet received the COVID-19 vaccine and would like to receive it can visit one of [facility] vaccine clinics. There are many vaccine clinic locations within the [facility]. For locations and available times, please visit [email or web address] It is important to note that some COVID mobile vaccine clinics are held outdoors and may be canceled in rainy or stormy conditions. To learn more about pediatric vaccinations (ages 5-11), we invite you to visit the [facility] webpage. https://www.[email or web address].org/pages/8181-Diobv-Wwlyfuijuth-Ljvcjhhyzh-Hsqus-Sls stions.htmlTo learn more about the COVID-19 vaccine, we invite you to visit the CDC website for a list of frequently asked questions. https://www.cdc.gov/coronavirus/2019-ncov/vaccines/faq.html [facility] Patient Portal Access Instructions: Stay connected with your healthcare team and access your personal medical information anytime with the [facility] Patient Portal. If you would like a full copy of your medical records please contact the [facility] Medical Records Department Thursday through Thursday between 8a.m. and 4:30p.m. Please follow the directions below to access the portal: 1.Access the email account you provided upon registration to the [facility].2.Look for an invitation email from [facility].3.Open the email and access the invitation link: Accept Invitation to [facility]4.Fill in the required de la garza to create your account. Sign into www.[email or web address] with your username and password that you [...] you will allow to register on the [facility] Patient Portal for access to your information. You can also access the [facility] Patient Portal on the Kontiki. Simply click on "Health Records" under "HealthHalldis" and then click on the [facility] logo. [...] Call your local pharmacy or go to [email or web address] to find one close to you.3.Make use of household items: Use cat litter or old coffee grounds to dispose medications if other options arenot available. Mix your drugs with these household products, seal them in an airtight container andthrow it into the garbage. Call [facility]: [phone] to be sure your drugs can be [...] been reviewed and explained to me and ISULTANA MELANIE L understand my current condition and have read and understand these discharge instructions. I have received a written copy of the plan/instructions. If I have questions, I am aware that I should contact my doctor. Patient/Scan Coordinator Signature: Date/Time: Relationship to Patient: Witness Name/Signature: Date/Time: [facility]07-17-2024 Note ORIGINAL EXAMINATION: CTA OF THE [...] No other acute finding. Interpreted by: Grace Aguilar MD Preliminary Report By: Grace Aguilar MD Electronically signed By Grace Aguilar MD Dictated Date: 10/28/2023 10:43:45 AM Prelim Date: 10/28/2023 10:48:13 AM Sign Date: 10/28/2023 10:48:13 AM [facility] Note Sinus rhythm Prolonged MD interval Electronic Signature: ROMAINE CARR DO 10/28/2023 10:02:04[facility] 03-19-2023 Hospital Discharge instructions Patient Education [...] following occur: Loss of consciousness Vomiting blood 5411-5417 [employer]. [address] [place] [address]. All rights reserved. This information is not intended as a substitute for professional medical care. Always follow yourhealthcare professional's instructions. Follow Up Care 06/29/2022 11:18:35 With:NENA HENSLEY Address: [address] [facility] [place] [address] [phone] Business (1) When:2-4 days With:BERNA MICHEL Address: [address] [facility] [place] [address]- Business (1) When:2-4 days [facility] 03-19-2023 Note Discharge Instructions Thank you for allowing [facility] to assist you with your healthcare needs. The following is importantdischarge information regarding your hospital visit. Diagnosis from Today's Visit Abdominal pain Rectal bleed Rectal bleeding What to Do Next Instructions from Your Care Team No qualifying data available. Post Acute Orders No qualifying data available. You Need to Schedule the Following Appointments Follow Up with NENA HENSLEY When Within 2-4 days Where: [address] [facility] [place] [address] [phone] Business (1) Follow Up with BERNA MICHEL When Within 2-4 days Where: [address] [facility] [place] [address]- Business (1) Allergies Bactrim (Blisters) propofol (Anxiety) [...] GLYE kol) ClearLax, GaviLAX, Gialax, GlycoLax, MiraLax, [id number], [employer] ClearLax What is the most important [...] may report side effects to FDA at 2-809-TRQ-0485. What other drugs will affect polyethylene glycol 3350? Other drugs may interact with polyethylene glycol 3350, including prescription and icys-hvk-muklddpixeyxykvt, vitamins, and herbal products. Tell each of [...] to ensure that the information provided by [employer]. ('[employer]') is accurate, up-to-date, and complete, but no guarantee is made to that effect. Drug information contained herein may be time sensitive. [employer] information has been compiled for use by healthcare practitioners and consumers in the [place] and therefore [employer] does not warrant that uses outside of the [place] are appropriate, unless specifically indicated otherwise. [employer] drug information does not endorse drugs, diagnose patients or recommend therapy. [employer] drug information isan informational resource designed to [...] effective or appropriate for any given patient. [employer] does not assume any responsibility for any aspect of healthcare administered with the aid of information [employer] provides. The information contained herein is not intended to cover all possible uses, directions, precautions, warnings, drug interactions, allergic reactions, or adverse effects. If you have questions about the drugs you are taking, check with your doctor, nurse or pharmacist. Copyright 4425-1702 [employer]. Version: 2.04. Revision Date: 07/16/2016. Education Materials [...] following occur: Loss of consciousness Vomiting blood 3531-0550 [employer]. [address] [place] [address], [place] [id number]. All rights reserved. This information is not intended as a substitute for professional medical care. Always follow yourhealthcare professional's instructions. Additional Information VACCINATE! IT SAVES LIVES! Members of the community who have not yet received the COVID-19 vaccine and would like to receive it can visit one of [facility] vaccine clinics. There are many vaccine clinic locations within the [facility]. For locations and available times, please visit www.[email or web address].gov/. It is important to note that some COVID mobile vaccine clinics are held outdoors and may be canceled in rainy or stormy conditions. To learn more about pediatric vaccinations (ages 5-11), we invite you to visit the [facility] webpage. https://www.[facility].org/pages/0377-Ixtgq-Ljlxsyixzbk-Pbyrjagwim-Zbrhu-Vqs stions.htmlTo learn more about the COVID-19 vaccine, we invite you to visit the CDC website for a list of frequently asked questions. https://www.cdc.gov/coronavirus/2019-ncov/vaccines/faq.html [facility] Patient Portal Access Instructions: Stay connected with your healthcare team and access your personal medical information anytime with the [facility] Patient Portal. If you would like a full copy of your medical records please contact the [facility] Medical Records Department Thursday through Thursday between 8a.m. and 4:30p.m. Please follow the directions below to access the portal: 1.Access the email account you provided upon registration to the [facility].2.Look for an invitation email from [facility].3.Open the email and access the invitation link: Accept Invitation to [facility]4.Fill in the required de la garza to [...] you will allow to register on the [facility] Patient Portal for access to your information. You can also access the [facility] Patient Portal on the Kontiki. Simply click on "Health Records" under "HealthDaEconic Technologies" and then click on the [facility] logo. HOW TO SAFELY DISPOSE OF PRESCRIPTION [...] Call your local pharmacy or go to [email or web address] to find one close to you.3.Make use of household items: Use cat litter or old coffee grounds to dispose medications if other options arenot available. Mix your drugs with these household products, seal them in an airtight container andthrow it into the garbage. Call [facility]: [phone] to be sure your drugs can be [...] aware that I should contact my doctor. Patient/Scan Coordinator Signature: Date/Time: Relationship to Patient: Witness Name/Signature: Date/Time: [facility]03-19-2023 Note ORIGINAL EXAMINATION: CT OF THE [...] 06/29/2022 1:06:34 PM Ordering Provider: BYRON DÍAZ [facility]03-19-2023 Note ORIGINAL EXAMINATION: CT OF THE [...] Date: 06/29/2022 1:06:34 PM Ordering Provider: BYRON [facility]08-11-2022 Hospital Discharge instructions Patient Education 11/21/2021 [...] foods again, start with small amounts of kabb-ti-cvkhfy, low- fat foods. These include apple sauce, [...] increase stomach acid. Don't use aspirin or xjec-hud-ndkpkrx pain and fever medicines, if possible. This includes nonsteroidal anti-inflammatory drugs (NSAIDs). Lose excess weight. Finish eating at least 2 hours before you go to bed or lie down. Raise the head of your bed. 3891-7850 [employer]. [address] [place] [address]. All rights reserved. This information is not intended as a substitute for professional medical care. Always follow yourhealthcare professional's instructions. Follow Up Care 11/21/2021 15:11:51 With:BERNA MICHEL MD Address: [address] [facility] [place] [address]- When:2-4 days [facility] 08-11-2022 Emergency department Discharge summary Discharge Instructions Thank you for allowing [facility] to assist you with your healthcare needs. [...] Within 2-4 days Where: [address] [place] [address]- Allergies Bactrim (Blisters) propofol (Anxiety) sulfa drugs Medications Please ask your primary doctor or pharmacist before taking any other medication not listed, including over the counter drugs, herbal medications, vitamins and or supplements as they may interact [facility]. What How Much When Why [...] foods again, start with small amounts of bamt-rj-zbmsuc, low- fat foods. These include apple sauce, [...] increase stomach acid. Don't use aspirin or zvqh-wad-nxfpxkl pain and fever medicines, if possible. This includes nonsteroidal anti-inflammatory drugs (NSAIDs). Lose excess weight. Finish eating at least 2 hours before you go to bed or lie down. Raise the head of your bed. 6658-5016 [employer]. [address] [place] [address], [place] [address]. All rights reserved. This information is not intended as a substitute for professional medical care. Always follow yourhealthcare professional's instructions. Additional Information VACCINATE! IT SAVES LIVES! Members of the community who have not yet received the COVID-19 vaccine and would like to receive it can visit one of [facility] vaccine clinics. There are many vaccine clinic locations within the [facility]. For locations and available times, please visit [email or web address]. It is important to note that some COVID mobile vaccine clinics are held outdoors and may be canceled in rainy orstormy conditions. To learn more about pediatric vaccinations (ages 5-11), we invite you to visit the [facility] webpage. https://www.[email or web address].org/pages/1562-Lgrqr-Ymjduihfqzw-Krewahcknf-Jvmwg-Lqg stions.htmlTo learn more about the COVID-19 vaccine, we invite you to visit the [facility] website for a list of frequently asked questions. https://[email or web address]/assets/Cvdblvxa-pph-Dqjiafkp/oyekb-Exinomz-Gopxtjcjbe _Asked-Questions.pdf [facility] Patient Portal Access Instructions: Stay connected with your healthcare team and access your personal medical information anytime with the [facility] Patient Portal. If you would like a full copy of your medical records please contact the [facility] Medical Records Department Thursday through Thursday between 8a.m. and 4:30p.m. Please follow the directions below to access the portal: 1.Access the email account you provided upon registration to the [facility].2.Look for an invitation email from [facility].3.Open the email and access the invitation link: Accept Invitation to [facility]4.Fill in the required de la garza to create your account. Sign into www.[employer] with your username and password that you [...] you will allow to register on the [facility] Patient Portal for access to your information. You can also access the [facility] Patient Portal on the Kontiki. Simply click on "Health Records" under "HealthData" and then click on the [employer] logo. HOW TO SAFELY DISPOSE OF PRESCRIPTION [...] Call your local pharmacy or go to [email or web address] to find one close to you.3.Make use of household items: Use cat litter or old coffee grounds to dispose medications if other options arenot available. Mix your drugs with these household products, seal them in an airtight container andthrow it into the garbage. Call [facility]: [phone] to be sure your drugs can be [...] been reviewed and explained to me and ISULTANA MELANIE L understand my current condition and have read and understand these discharge instructions. I have received a written copy of the plan/instructions. If I have questions, I am aware that I should contact my doctor. Patient/Scan Coordinator Signature: Date/Time: Relationship to Patient: Witness Name/Signature: Date/Time: [facility]08-11-2022 Note ORIGINAL EXAMINATION: CT OF THE [...] Date: 11/21/2021 4:11:15 PM Ordering Provider: PHIL SMITH [facility]08-11-2022 Note ORIGINAL EXAMINATION: CT OF THE [...] Sign Date: 11/21/2021 4:11:15 PM Ordering Provider: [facility]12[facility] Hospital Discharge instructions Patient Education 03/15/2021 10:23:25 1-[facility] Discharge Instructions Template (01/2018) (CUSTOM) [facility] SAME DAY SURGERY DISCHARGE INSTRUCTIONS PLEASE FOLLOW [...] us better serve our patients. Form: 1522 11992) R: 07/2003/15/2021 10:22:46 9 - AO Minor [...] a slower pace than normal. ?Eat soft, xjhz-ku-gmxrwj foods. Take keuu-fgj-nxxzlgs or prescription medicines only as told by [...] 11/11/2004 Document Revised: 01/20/2018 Document Reviewed: 06/10/2016 [employer] Patient Education 2020 [employer]. Follow Up Care 12/11/2020 08:24:23 With:NENA HENSLEY MD Address: [phone] When: Unknown Comments:Follow-up as scheduled Follow-up as needed [facility] Consult note Author James [facility] Note Date/Time December 05, 2024 8: 20am [facility] Medical Records Department [address] [place] [address] Pre-Anesthesia Evaluation 12/05/24 08 MR#: [id number] Acct: [id number] Name: RAIN MURPHY Rep #: [id number] : 1975 49 From: James Rivera MD PCP: Dr. Berna Michel MD Status:REG SDC Y Race: C Location: [place] [address] ASA Classification* ASA Classification ASA Classification: 3 Assessment & Plan Anesthesia* Anesthesia Assessment Anesthesia Assessment: Discussed sedation and/or anesthesia options, risks, benefits, and alternatives with patient/parents/legal guardian/POA. Questions invited. The patient/parents/legal guardian/POA seems to understand and agrees to proceedwith anesthesia plan. Reviewed the physical assessment, medical history, allergy history and patient home medications list prior to surgery/procedure/anesthetic and documented any changes. Performed airway and anesthesia risk assessments. 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 When Was Last Pacemaker Check QUESTION #4 FULL TEXT: You/Your Family Experience fever (hyperthermia) with Anesthesia Last Oral Intake Last Oral intake: Last Oral Intake NPO since 04:30 12/05/24 07:32 Meds taken in AM with sips of Yes 12/05/24 07:32 water? 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: PONV - carpet floor layer apprentice Female Yes 12/01/24 10:35 HX of Motion Sickness No 12/01/24 10:35 HX of N/V After Surgery Yes 12/01/24 10:35 Non-Smoker Yes 12/01/24 10:35 Duration of Surgery greater No 12/01/24 10:35 than 60 minutes Number of Risk Factors 3 12/01/24 10:35 PONV Score Moderate Risk 12/01/24 10:35 Height & Weight Height & Weight: Anesthesia: Height & Weight Height 5 ft 1 in 12/05/24 07:32 Weight: 140 kg 12/05/24 07:32 Body Mass Index (BMI) 58.3 12/05/24 07:32 Respiratory Assessment Respiratory Assessment - carpet floor layer apprentice: Respiratory Tract Infection Hx - carpet floor layer apprentice Hx Respiratory Tract Infection No 12/01/24 10:35 STOP Sleep Apnea STOP Sleep Apnea - carpet floor layer apprentice: STOP Sleep Apnea - carpet floor layer apprentice Hx Hypertension Yes 12/01/24 10:35 Hx Sleep [...] 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: Tobacco Use History - 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 Specify any problems Hx of Preganancy in last 3 No 12/01/24 10:35 Months Nurse Filling Out Transfusion VLEHSTANLEY 12/01/24 10:35 & Questions: Date: 12/01/24 12/01/24 10:35 Time: 10:46 12/01/24 10:35 Patient unable to answer at this time (ie. 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: /Reproductive Hx- carpet floor layer apprentice Hx Now No 12/01/24 10:35 Gestational Age (in weeks): EDC: Hx Hx Para Hx Section SAB No 12/01/24 10:35 Active Medications Active Medications: Current Medications Generic Name Dose Route Start Last Admin Trade Name Freq PRN Reason Stop Dose Admin Lactated Ringer's 1,000 mls @ 15 mls/hr 12/05/24 07:15 12/05/24 07:42 IV 15 mls/hr .Q48H FIFI Administration PFSH Medical History H/O psoriasis Post-menopausal Wears glasses Depression Anxiety Bruising History of steroid therapy Rheumatoid arthritis DVT (deep venous thrombosis) Easy bruising Migraine headache H/O hemorrhoids History of IBS History of diverticulitis Gastric reflux Shortness of breath on exertion History of echocardiogram Hypertension Home Medications ?Medication ?Instructions ?Recorded ?Last Taken ?Type cholecalciferol (vitamin D3) 1,250 1,250 mcg PO QWEEK 10/13/24 11/28/24 History mcg (50,000 unit) capsule clonazepam 1 mg tablet 1 mg PO 4X/DAY PRN anxiety 0 10/13/24 12/04/24 History dicyclomine 20 mg tablet 20 mg PO TID PRN abdominal p ain 10/13/24 Unknown History escitalopram oxalate 20 mg tablet 20 mg PO QDAY 12/04/24 History hydroxychloroquine 200 mg tablet 200 mg PO BID 5 12/04/24 History metoprolol tartrate 25 mg tablet 25 mg PO BID 10/13/24 12/05/24 History pantoprazole 40 mg tablet,delayed 40 mg PO BID 5 12/05/24 History release Allergy/AdvReac Type Severity Reaction Status Date / Time Sulfa (Sulfonamide Allergy NEEDS Verified 12/05/24 07:30 Antibiotics) FOLLOW-UP sulfamethoxazole (From Allergy NEEDS Verified 12/05/24 07:30 Bactrim) FOLLOW-UP trimethoprim (From Bactrim) Allergy NEEDS Verified 12/05/24 07:30 FOLLOW-UP Surgical History History of surgery History of nasal septoplasty History of cholecystectomy History of carpal tunnel release of both wrists Social History Smoking Status: Never smoker Review of Systems (Anesthesia) ROS Narrative System reviewed and no additional complaints, except as documented. Physical Exam Const alert and oriented x3 Orientation / Consciousness: awake Resp normal respiratory effort and normal air movement Cardio regular rate and regular rhythm 12/05/24 0820 <Electronically signed by James Martin> Date _ James Rivera MD Cosigner Signature: Date CC: ~ Signed [facility] Work Phone: Consult note Author Talon Parmar [facility] Note Date/Time December 05, 2024 9: 17am [facility] Medical Records Department [address] [place] [address] Anesthesia Postop Eval I 12/05/2416 MR#: [id number] Acct: [id number] Name: RAIN MURPHY Rep #: [id number] : 1975 49 From: Talon Parmar PCP: Dr. Berna Michel MD Status:REG SDC Y Race: C Location: [place] [address] Anesthesia: Postop Eval I Current Vital Signs Temperature: 97.5 F Pulse Rate: 66 Blood Pressure: 105/66 Respiratory Rate: 16 Pulse Ox: 96 Oxygen Delivery Method: Room Air Assessment Airway patent: Yes Spontaneous unlabored respirations: Yes Mental status: Awake nausea: No Vomiting: No Anesthesia Complication: No Fluid Hydration Crystalloid volume administer (ml): 400 Total IV fluid infused: 400 Progress Note Anesthesia document: Postop Eval 1 completed: Yes 12/05/24916 <Electronically signed by Talon Parmar > Date _ Talon Parmar Maricruzigner Signature: Date CC: ~ Signed [facility] Work Phone: Consult note Author James Rivera [facility] Note Date/Time December 05, 2024 9: 53am [facility] Medical Records Department [address] [place] [address] Anesthesia Postop Eval II 12/05/2442 MR#: [id number] Acct: [id number] Name: RAIN MURPHY Rep #: [id number] : 1975 49 From: James Rivera MD PCP: Dr. Berna Michel MD Status:REG [facility] Y Race: C Location: [place] [address] Anesthesia Postop Eval I Sum Postop Eval Completion status Anesthesia document: Postop Eval 1 completed: Yes Anesthesia Postop Eval I Summary Anesthesia Postop Eval I Summary: Anesthesia Postop Eval I: Assessment Summary Airway patent Yes 12/05/24 09:17 [email or web address] Spontaneous unlabored Yes 12/05/24 09:17 [email or web address] respirations Mental status Awake 12/05/24 09:17 [email or web address] nausea No 12/05/24 09:17 [email or web address] Vomiting No 12/05/24 09:17 [email or web address] Anesthesia Postop Eval I: Fluid Summary Crystalloid volume administer 400 12/05/24 09:17 [email or web address] (ml) Colloids volume administered ( ml) Blood Product volume administered (ml) Total IV fluid infused 400 12/05/24 09:17 [email or web address] Anesthesia Postop Eval I: Summary Notes Anesthesia Complication No 12/05/24 09:17 [email or web address] Anesthesia Complication Comment: Post-operative progress note Anesthesia: Postop Eval II Evaluation Mental status: Awake Pain Level: 0 nausea: No Vomiting: No Complications Anesthesia Complication: No 12/05/24 0942 <Electronically signed by James Martin> Date _ James Rivera MD Cosigner Signature: Date CC: ~ Signed [facility] Work Phone: Evaluation + Plan note Future Appointments Appointment Date:06/04/2021 07:30:00 AM Scheduled Provider:BERNA MICHEL MD Location:[facility] Appointment Type:PC OV Controlled Medication Future Scheduled Tests Laboratory* Reticulocytes (AO) 08/17/20 * Ferritin 08/17/20 * Iron Level 08/17/20 * Complete Blood Count 08/17/20 [facility] Evaluation + Plan note Future Appointments Appointment Date:11/29/2021 07:30:00 AM Scheduled Provider:BERNA MICHEL MD Location:[facility] Appointment Type:PC OV Controlled Medication [facility] Evaluation + Plan note Future Appointments Appointment Date:07/09/2022 08:30:00 AM Scheduled Provider:BERNA MICHEL MD Location:[facility] Appointment Type:PC OV Future Scheduled Tests Laboratory* Complete Blood Count 05/15/22 * Lipid Profile 05/15/22 * Vitamin D Level 05/15/22 * Complete Metabolic Panel 05/15/22 [facility] Evaluation + Plan note Future Appointments Appointment Date:03/16/2023 08:00:00 AM Scheduled Provider: Location:[facility] Appointment Type:PC Nurse Lab Appointment Date:03/26/2023 07:00:00 AM Scheduled Provider:BERNA MICHEL MD Location:[facility] Appointment Type:PC OV Future Scheduled Tests Laboratory* Ferritin 12/26/22 * Iron Level 12/26/22 * Reticulocytes (AO) 12/26/22 * Complete Blood Count 12/26/22 * Reticulocytes - Panel 09/26/22 * Vitamin D Level 12/26/22 * Complete Metabolic Panel 12/26/22 [facility] Evaluation + Plan note Future Appointments Appointment Date:11/05/2023 07:00:00 AM Scheduled Provider:BERNA MICHEL MD Location:[facility] Appointment Type:PC OV Appointment Date:11/19/2023 07:00:00 AM Scheduled Provider:BERNA MICHEL MD Location:[facility] Appointment Type:PC OV Controlled Medication Future Scheduled Tests Laboratory* Ferritin 12/26/22 * Iron Level 12/26/22 * Reticulocytes (AO) 12/26/22 * Complete Blood Count 12/26/22 * Vitamin D Level 12/26/22 * Complete Metabolic Panel 12/26/22 Radiology* CT Angiography Chest w/ Contrast 10/28/23 * CT Sinus 03/26/23 [facility] [employer] + Plan note Future Appointments Appointment Date:12/01/2023 11:30:00 AM Scheduled Provider:BERNA MICHEL MD Location:[facility] Appointment Type:PC OV Future Scheduled Tests Laboratory* Ferritin 12/26/22 * Iron Level 12/26/22 * Complete Blood Count 12/26/22 * Vitamin D Level 12/26/22 * Complete Metabolic Panel 12/26/22 Radiology* CT Angiography Chest w/ Contrast 10/28/23 * CT Sinus 03/26/23 [facility] Evaluation + Plan note Future Appointments Appointment Date:02/25/2024 07:30:00 AM Scheduled Provider:BERNA MICHEL MD Location:[facility] Appointment Type:PC OV Future Scheduled Tests Radiology* CT Angiography Chest w/ Contrast 10/28/23 * CT Sinus 03/26/23 [facility] Evaluation + Plan note Future Appointments Appointment Date:08/08/2024 07:00:00 AM Scheduled Provider:Osman Capps PT Location:[facility] Appointment Type:PT Outpatient Evaluation Appointment Date:10/04/2024 07:00:00 AM Scheduled Provider:BERNA MICHEL MD Location:[facility] Appointment Type:PC OV Future Scheduled Tests Laboratory* A1C Hemoglobin 07/28/24 * Complete Blood Count 07/28/24 * Lipid Profile 07/28/24 * Vitamin D Level 07/28/24 * Complete Metabolic Panel 07/28/24 Radiology* CT Angiography Chest w/ Contrast 10/28/23 [facility] Evaluation + Plan note Future Appointments Appointment Date:10/04/2024 07:00:00 AM Scheduled Provider:BERNA MICHEL MD Location:[facility] Appointment Type:PC OV Future Scheduled Tests Laboratory* A1C Hemoglobin 07/28/24 * Complete Blood Count 07/28/24 * Lipid Profile 07/28/24 * Vitamin D Level 07/28/24 * Complete Metabolic Panel 07/28/24 Radiology* CT Angiography Chest w/ Contrast 10/28/23 [facility] Evaluation + Plan note Future Appointments Appointment Date:10/04/2024 07:00:00 AM Scheduled Provider:BERNA MICHEL MD Location:[facility] Appointment Type:PC OV Future Scheduled Tests Radiology* CT Angiography Chest w/ Contrast 10/28/23 [facility] Evaluation note* Diagnosis Abdominal pain, left lower quadrant- Primary History of diverticulosis Personal history of other diseases of digestive system MUNOZ (dyspnea on exertion) Other dyspnea and respiratory abnormality Hypoxia Hypoxemia documented in this encounter [facility] noteNo assessment information availableK[facility] Work Phone: History and physical note Author Jose Friend [facility] Note Date/Time December 05, 2024 8: 06am [facility] Medical Records Department [address] [place] [address] History & Physical Exam 12/05/24 0804 MR#: [id number] Acct: [id number] Name: RAIN MURPHY Rep #: [id number] : 1975 49 From: Jose Pettit DO PCP: Dr. Berna Michel MD Status:REG [facility] Location: [place] [address] HPI - General General Date of Admission: 12/05/24 Date of Service: 12/05/24 Chief Complaint: Intermittent constipation with abdominal pain followed by occasional nausea vomiting with breakthrough heartburn HPI Narrative RAIN MURPHY, is a 49 F who presents with the Chief Complaint: constipation and abdominal pain [facility] ED 6.2.25 wiht LLQ pain. Pt with PMHx of diverticulitis. SHe hasbeen having nausea but no vomiting. Blood work [...] This is accompanied by left lower quadrant crampingand n/v. She does not take any OTC laxatives or fiber supplementation. Last colonoscopy was in 2020 with polyps. Last EGD in 2021. SHe takes PPi twice a dayand has breakbothoura heartburn on occasion. [facility] Medical History H/O psoriasis Post-menopausal Wears glasses Depression Anxiety Bruising History of steroid therapy Rheumatoid arthritis DVT (deep venous thrombosis) Easy bruising Migraine headache H/O hemorrhoids History of IBS History of diverticulitis Gastric reflux Shortness of breath on exertion History of echocardiogram Hypertension Home Medications ?Medication ?Instructions ?Recorded ?Last Taken ?Type cholecalciferol (vitamin D3) 1,250 1,250 mcg PO QWEEK 10/13/24 11/28/24 History mcg (50,000 unit) capsule clonazepam 1 mg tablet 1 mg PO 4X/DAY PRN anxiety 0 10/13/24 12/04/24 History dicyclomine 20 mg tablet 20 mg PO TID PRN abdominal p ain 10/13/24 Unknown History escitalopram oxalate 20 mg tablet 20 mg PO QDAY 12/04/24 History hydroxychloroquine 200 mg tablet 200 mg PO BID 5 12/04/24 History metoprolol tartrate 25 mg tablet 25 mg PO BID 10/13/24 12/05/24 History pantoprazole 40 mg tablet,delayed 40 mg PO BID 5 12/05/24 History release Allergy/AdvReac Type Severity Reaction Status Date / Time Sulfa (Sulfonamide Allergy NEEDS Verified 12/05/24 07:30 Antibiotics) FOLLOW-UP sulfamethoxazole (From Allergy NEEDS Verified 12/05/24 07:30 Bactrim) FOLLOW-UP trimethoprim (From Bactrim) Allergy NEEDS Verified 12/05/24 07:30 FOLLOW-UP Surgical History History of surgery History of nasal septoplasty History of cholecystectomy History of carpal tunnel release of both wrists Social History Smoking Status: Never smoker ROS Constitutional Constitutional: Denies fatigue, fever(s), poor appetite, weight gain or weight loss Gastrointestinal Gastrointestinal: Denies belching, bloating, change in bowel habits, change in stool character, chewing difficulty, coffee ground emesis, constipation, cramping, diarrhea, dyspepsia, dysphagia, early satiety, excessive flatus, fecalincontinence, heartburn, hematemesis, hematochezia, hemorrhoids, loose stools, melena, nausea, odynophagia, rectal bleeding, tenesmus, vomiting or weight changes Vital Signs Vital Signs Vital Signs: 12/05/24 07:32 12/05/24 07:32 Temperature 97.5 F L Temperature Source Temporal Pulse Rate 71 Respiratory Rate 20 H Respiratory Pattern Normal Blood Pressure 116/76 Blood Pressure Mean 89 Blood Pressure Source Monitor Blood Pressure Position Semi-Fowlers Blood Pressure Location Right Arm Pulse Ox 94 Oxygen Delivery Method Room Air Weight Weight: 308 lb 10.354 oz Body Mass Index (BMI) 58.3 Physical Exam Const alert, oriented x3, no apparent distress and healthy appearing General Appearance: cooperative GI normal to inspection, nondistended, normoactive bowel sounds, soft to palpation,non-tender and non-distended Percussion: normal to percussion Rectal Exam: deferred Assessment & Plan Assessment/Plan (1) GERD (gastroesophageal reflux disease): (2) Hx of colonic polyps: (3) Constipation: PLAN: Assessment and Plan Assessment and Plan (1) Constipation: Status: Acute Plan: Rain is a 48 yo female pt with PMHXx of diverticulitis, colonic polyps and constipation here today for worsening constipation over the past few months. SHehas daily bm but are not complete. SHe [...] colonoscopy -Start miralax -Consider Linzess -f/u after procedures (2) Hx of colonic polyps: Status: Acute (3) GERD (gastroesophageal reflux disease): Status: Acute 12/05/24 08 <Electronically signed by Jose Pettit DO> Cosigner Signature (if applicable): CC: Dr. Berna Michel MD; Jose Pettit DO~ Signed [facility] Work Phone: Hospital course Narrative No data available for this section [facility] Discharge instructions No data available for this section [facility] Progress note No data available for this section [facility] Reason for referral (narrative)No reason for referral information availableK[facility] Foundation Hospital Work Phone: Summary Purpose Family History No [...] Found Advance Directives No Advanced Directives Records Found Advance Directive Response Recorded Date/ Time Do you have a Healthcare Power of Wax Machine Operator? No December 01, 2024 10:35am Chief Complaint and Reason for Visit Chief Complaint Admit Date CONSTIPATED NAUSEA CRAMPING VOMITING Oct 7:16am Reason for Visit Admit Date Constipation October 13, 2024 7:16a m GERD (gastroesophageal reflux disease) J 2024 7:16am Hx of colonic polyps October 13, 2024 7:16 am Constipation December 05, 2024 7: 08am GERD (gastroesophageal reflux disease) A ugust 2024 7:08am Hx of colonic polyps December 05, 2024 7 :08am Chief Complaint Admit Date CONSTIPATED NAUSEA CRAMPING VOMITING Oct 7:16am TEST December 20, 2024 7:36am Reason for Visit Admit Date Constipation October 13, 2024 7:16a m GERD (gastroesophageal reflux disease) J 2024 7:16am Hx of colonic polyps October 13, 2024 7:16 am Constipation December 05, 2024 7: 08am GERD (gastroesophageal reflux disease) A ugust 2024 7:08am Hx of colonic polyps December 05, 2024 7 :08am Esophageal varices December 20, 2024 7:36am Additional Source Comments INFORMATION SOURCE (unrecogn ized section and content) DATE CREATED AUTHOR 07/25/2021 [facility] DATE CREATED AUTHOR AUTHOR'S ORGANIZ ATION 11/29/2023 [facility] DATE CREATED AUTHOR AUTHOR'S ORGANIZ ATION 07/12/2024 [facility] DATE CREATED AUTHOR AUTHOR'S ORGANIZ ATION 12/19/2024 [facility] DATE CREATED AUTHOR AUTHOR'S ORGANIZ ATION 12/29/2024 [facility] Care Team (unrecognized sect ion and content) Care Team Personnel Name: Storm Garciarduke Evans PT Position: P3 Scheduling - Substation Engineer Advanced Member Role: Other Name: BERNA MICHEL MD Position: P4 Physician - Primary Care Med Service: Active Provider Member Role: Primary Care Physician Address: Address: [address] [place] [address] [place] Care Team Related Persons Name: NONE, Name: NA MURPHY Name: DOMINIQUE MURPHY Address: [address] [phone] [place] Name: DOMINIQUE MURPHY Address: [address] [phone] [place] Name: DOMINIQUE MURPHY Address: Home [address] [place] [phone] Name: DOMINIQUE MURPHY Address: [address] [phone] Patient Care team informatio n (unrecognized section and content) Real Estate Development Manager Relationship Specialty Start Date End Date Berna Michel MD [address] [place] [address] [place] [address] PCP - General 12/17/05 Team Status: Active Member Role/Relationship Status Dates Dr. Berna Michel MD Family Provider Active Dr. Berna Michel MD Primary Care Provider Active Team Status: Inactive Member Role/Relationship Status Dates Dr. Berna Michel MD Primary Care Provider Active Start: October 13, 2024 End: October 13, 2024 Dr. Berna Michel MD Referring Provider Active Start: October 13, 2024 End: October 13, 2024 [place] Attending Provider Active Start: October 13, 2024 End: October 13, 2024 Team Status: Active Member Role/Relationship Status Dates Dr. Berna Michel MD Primary Care Provider Active Team Status: Inactive Member Role/Relationship Status Dates Dr. Berna Michel MD Primary Care Provider Active Start: December 05, 2024 End: December 05, 2024 Dr. Berna Michel MD Referring Provider Active Start: December 05, 2024 End: December 05, 2024 Dr. Jose Pettit DO Attending Provider Active Start: December 05, 2024 End: December 05, 2024 Team Status: Active Member Role/Relationship Status Dates Dr. Berna Michel MD Primary Care Provider Active Start: December 05, 2024 Dr. Berna Michel MD Referring Provider Active Start: December 05, 2024 Dr. Jose Pettit DO Attending Provider Active Start: December 05, 2024 Dr. Jose Pettit DO Other Provider Active St art: December 05, 2024 Team Status: Inactive Member Role/Relationship Status Dates Dr. Berna Michel MD Primary Care Provider Active Start: December 20, 2024 End: December 20, 2024 Dr. Berna Michel MD Referring Provider Active Start: December 20, 2024 End: December 20, 2024 [place] Attending Provider Active Start: December 20, 2024 End: December 20, 2024 Source Comments (unrecognize d section and content) In the event this informatio n is protected by the Federal Confidentiality of Alcohol and Drug Abuse Patient Records regulations: The Federal rules restrict any use of the information to criminally investigate or prosecute any alcohol or drug abuse patient.[facility] Reason for Visit (unrecogniz ed section and [...] BE BASED ON THE PRIMARY CLINICAL RECORDS. [employer] provides no warranty or guarantee of the accuracy or completeness of information in this document.
== END | disposition home or self-care (01) ==
LOC: US 07:27
PROVIDERS: PCP Family Medicine; Referring Provider Student in an Organized Health Care Education/Training Program; Visit Provider Student in an Organized Health Care Education/Training Program
DX: I85.00 Esophageal varices without bleeding (principal)
CPT/HCPCS: 76705; 76981

== ENCOUNTER → 2025-01-13 | Outpatient (CLI) | payer BC, SELFPAY | END | disposition home or self-care (01) | LOC: PSN 08:08 | PROVIDERS: PCP Family Medicine; Referring Provider Internal Medicine Cardiovascular Disease; Visit Provider Internal Medicine Cardiovascular Disease | DX: R06.02 Shortness of breath (principal) | CPT/HCPCS: 94060; 94726; 94729 ==

== ENCOUNTER → 2025-01-30 | Outpatient (CLI) | payer BC, SELFPAY ==
--- OUTSIDE RECORDS SUMMARY | 2025-01-30 06:55 | XMS RPT_ITS | CCD ---
Author Organization [facility] Care Team Providers Care Museum Archivist Name Role Phone BERAN HOWELL MD Primary Care Physician Radha PT, Cristina Unavailable Unavailable BERNA HOWELL MD Attending Unavailable BERNA HOWELL MD Primary Care Unavailable BERNA HOWELL MD Attending Unavailable BERNA HOWELL MD Primary Care Unavailable BERNA HOWELL MD Attending Unavailable BERNA HOWELL MD Primary Care Unavailable BERNA HOWELL MD Attending Unavailable BERNA HOWELL MD Primary Care Unavailable LILLY JACOBS, DR ROMAINE Abreu Attending UnavailBERNA Smith MD Primary Care Unavailable BERNA HOWELL MD Attending Unavailable BERNA HOWELL MD Primary Care Unavailable BERNA HOWELL MD Primary Care Unavailable BERNA HOWELL MD Attending Unavailable BERNA HOWELL MD Primary Care Unavailable BERNA HOWELL MD Attending Unavailable BERNA HOWELL MD Attending Unavailable BERNA HOWELL MD Primary Care Unavailable Berna Howell MD Primary Care Provider BERNA HOWELL Primary Care Unavailable EVANS NOLAN Attending Unavailable Dr. Berna Howell MD Primary Care Provider [phone] Dr. Berna Howell MD Referring Provider Peace Gibbs Attending Provider [phone] Dr. Jose Pettit DO Attending Provider Dr. Jose Pettit DO Other Provider BERNA HOWELL MD Primary Care Unavailable BERNA HOWELL MD Attending Unavailable BERNA HOWELL MD Primary Care Unavailable BERNA HOWELL MD Attending Unavailable PHIL SMITH MD Attending Unavail able BERNA HOWELL MD Primary Care Unavailable BERNA HOWELL MD Primary Care Unavailable DR MARY CARMEN PARDO MD Attending UnavailBERNA Smith MD Primary Care Unavailable BERNA HOWELL MD Attending Unavailable DANTE STOKES, BERNA Martin Primary Care Unavailable [employer]OV[employer] CONTRACTOR-INTELLECTUAL PROPERTY PARALEGAL, PEACE Attending Unavail able [employer] MELENDEZINTELLECTUAL PROPERTY PARALEGAL, PEACE Attending Unavail able BERNA HOWELL MD Primary Care Unavailable DANTE STOKES, BERNA Martin Primary Care Unavailable BERNA HOWELL MD Attending Unavailable DANTE STOKES, BERNA Martin Primary Care Unavailable BERNA HOWELL MD Attending Unavailable Dante STOKES, Dr. Huff Primary Care Physician [phone] Peace Gibbs Attending Physician [phone] Wilver JACOBS, Dr. Garcia Attending Physician Friend , Dr. Garcia Nurse Practitioner Peace Gibbs Referring Provider [phone] Kendall STOKES, Dr. Levy Attending Physician [phone] Peace Beaver Attending Unavailable Peace Beaver Referring Unavailable Howell, Berna Primary Care Unavailable Grace Argueta Attending Unavailable Grace Argueta Referring Unavailable Howell, Berna Primary Care Unavailable Grace Argueta Attending Unavailable Grace Argueta Referring Unavailable Howell, Berna Primary Care Unavailable Peace Beaver Attending Unavailable Howell, Berna Referring Unavailable Howell, Berna Primary Care Unavailable Grace Argueta Attending Unavailable Howell, Berna Referring Unavailable Howell, Berna Primary Care Unavailable Howell, Berna Referring Unavailable Howell, Berna Primary Care Unavailable Jose Pettit Unavailable Jose Pettit Attending Unavailable Peace Beaver Attending Unavailable Howell, Berna Primary Care Unavailable Howell, Berna Referring Unavailable Howell, Berna Primary Care Unavailable Howell, Berna Referring Unavailable Jose Pettit Attending Unavailable Allergies Allergy Classification Reported Allergen(s) Allergy Type Date of Onset Reaction(s) Facility (15 sources) Propofol; Translations: [propofol] Drug Allergy 07-12-19 Anxiety (finding), Intolerance, Other: See Comments [facility] Comment on above: extreme restlessness (15 sources) Sulfamethoxazole / Trimethoprim; Translations: [sulfamethoxazole-t rimethoprim] Drug Allergy 07-12-19 Other: See Comments [facility] (14 sources) Sulfonamides (Antibiotic); Translations: [sulfa drugs] Drug allergy [facility] Comment on above: blood blisters (2 sources) Sulfonamides (Antibiotic); Translations: [SULFA (SULFONAMIDE ANTIBIOTICS)] Drug Allergy 05-29-19 Rash, Unknown [facility] (1 source) Propofol; Translations: [PROPOFOL ANALOGUES] Propensity to adverse reactions to drug (disorder) 07-12-19 [facility] (1 source) Sulfamethoxazole / Trimethoprim; Translations: [SULFAMETHOXAZOLE-T RIMETHOPRIM] Drug Allergy 07-12-19 [facility] (5 sources) Sulfamethoxazole Drug Allergy 10-14-19 NEEDS FOLLOW-UP [facility] (5 sources) Sulfonamides (Antibiotic) Allergy to substance 10-14-19 NEEDS FOLLOW-UP [facility] (5 sources) Trimethoprim Drug Allergy 10-14-19 NEEDS FOLLOW-UP [facility] (1 source) Sulfamethoxazole Drug Allergy 01-05-20 [facility] (1 source) Sulfonamides (Antibiotic) Drug allergy (disorder) 01-05-20 [facility] (1 source) Trimethoprim Drug Allergy 01-05-20 [facility] Medications Current Medications Medication Drug [...] headache, # 30 cap(s), 1 Refill(s), Pharmacy: [facility] #[id number], Benign essential hypertension Chronic migraine without aura, [...] wheezing, # 1,080 mL, 3 Refill(s), Pharmacy: [facility] #[id number], Benign essential hypertension, 158, cm, 11/05/23 7:04:00 [...] wheezing, # 90 mL, 0 Refill(s), Pharmacy: [facility] #[id number], Benign essential hypertension, 159, cm, 09/26/22 7:30:00 EDT, Height Start Date: 09/26/22 Status: Ordered cholecalciferol 1.25 mg oral capsule (5 sources) Vitamin D Start: 10-13-2024 take 1 capsule by mouth every week ciprofloxacin 750 mg oral tablet (1 source) Quinolone Antimicrobial Start: 12-26-2022 End: 01-16-2023 ciprofloxacin 750 mg oral tablet Dose : 750 mg = 1 tab(s), Oral, q12h, X 21 day(s), # 42 tab(s), 0 Refill(s), 01/16/23 8:41:00 AM EDT, Pharmacy: [facility] #[id number], Chronic sinusitis Iron deficiency anemia, 159, cm, 12/26/22 7:26:00 EDT, Height, 149.2, kg, 12/26/22 7:26:00 EDT, Dosing Weight Start Date: 12/26/22 Stop Date: 01/16/23 Status: Ordered clonazePAM 1 mg oral tablet (20 sources) Benzodiazepine Start: 07-28-2024 End: 01-24-2025 take 1 tablet by mouth four times daily as needed for anxiety Start: 10-23-2023 End: 02-23-2024 clonazePAM 1 mg oral tablet Dose : 1 mg = 1 tab(s), Oral, QID, # 360 tab(s), 0 Refill(s), Pharmacy: [facility] #[id number], Anxiety, 158, cm, 11/05/23 7:04:00 EDT, Height, 154.8, kg, 11/05/23 7:04:00 EDT, Dosing Weight Start Date: 11/25/23 Stop Date: 02/23/24 Status: Ordered Start: 05-30-2022 End: 02-17-2023 clonazePAM 1 mg oral tablet Dose : 1 mg = 1 tab(s), Oral, TID, as needed, # 270 tab(s), 0 Refill(s), Pharmacy: [facility] #[id number], Anxiety, 159, cm, 09/26/22 7:30:00 EDT, Height, 147.2, kg, 09/26/22 7:30:00 EDT, Dosing Weight Start Date: 11/19/22 Stop Date: 02/17/23 Status: Ordered Start: 09-05-2021 End: 12-04-2021 clonazePAM 1 mg oral tablet Dose : 1 mg = 1 tab(s), Oral, TID, as needed, # 270 tab(s), 0 Refill(s), Pharmacy: [facility] Anxiety, 160, cm, 06/04/21 7:27:00 EST, Height, 129.2, kg, 06/04/21 7:27:00 EST, Dosing Weight Start Date: 09/05/21 Stop Date: 12/04/21 Status: Ordered Start: 02-11-2021 End: 05-12-2021 clonazePAM 1 mg oral tablet Dose : 1 mg = 1 tab(s), Oral, TID, as needed, # 270 tab(s), 0 Refill(s), Pharmacy: [facility] Anxiety, 155, cm, 01/02/21 17:11:00 EDT, Height, 124.4, kg, 01/02/21 17:11:00 EDT, Dosing Weight Start Date: 02/11/21 Stop Date: 05/12/21 Status: Ordered dicyclomine hydrochloride 20 mg oral tablet (20 sources) Anticholinergic Start: 10-13-2024 take 1 tablet by mouth three times daily as needed for pain Start: 11-25-2023 End: 01-24-2024 dicyclomine 20 mg oral table t Dose : 20 mg = 1 tab(s), Oral, TID, # 90 tab(s), 1 Refill(s), Pharmacy: [facility] #[id number], Benign essential hypertension Acute sinusitis, 158, cm, [...] 90 tab(s), 1 Refill(s), Pharmacy: [facility] #[id number], Benign essential hypertension Acute sinusitis, 158, cm, 05/21/23 7:03:00 EST, Height, kg, 05/21/23 7:03:00 EST, Dosing Weight Start Date: 05/21/23 Stop Date: 07/20/23 Status: Ordered Start: 08-28-2022 End: 11-25-2022 dicyclomine 20 mg oral table t Dose : 20 mg = 1 tab(s), Oral, TID, # 90 tab(s), 1 Refill(s), Pharmacy: [facility] #[id number], Benign essential hypertension Acute sinusitis, 159, cm, 09/26/22 7:30:00 EDT, Height, kg, 09/26/22 7:30:00 EDT, Dosing Weight Start Date: 09/26/22 Stop Date: 11/25/22 Status: Ordered Start: 05-30-2022 End: 07-29-2022 dicyclomine 20 mg oral table t Dose : 20 mg = 1 tab(s), Oral, TID, # 90 tab(s), 1 Refill(s), Pharmacy: [facility] #[id number], Benign essential hypertension Acute sinusitis, 158.6, cm, 05/30/22 7:30:00 EST, Height Start Date: 05/30/22 Stop Date: 07/29/22 Status: Ordered Start: 11-12-2021 dicyclomine 10 mg oral capsule Dose : 10 mg = 1 cap(s), Oral, QID, PRN abdominal discomfort, # 120 cap(s), 0 Refill(s), Pharmacy: [facility] #[id number], 160, cm, 06/04/21 7:27:00 EST, Height Start Date: 11/12/21 Status: Ordered Start: 03-04-2021 End: 03-14-2021 dicyclomine 10 mg oral capsu le Dose : 10 mg = 1 cap(s), Oral, QID, PRN abdominal discomfort, 0 Refill(s) Start Date: 03/04/21 Stop Date: 03/14/21 Status: Ordered escitalopram 20 mg oral tablet (20 sources) Serotonin Reuptake Inhibitor Start: 09-27-2024 take 1 tablet by mouth once daily Start: 05-30-2020 escitalopram 2 0 mg oral tablet Dose : 20 mg = 1 tab(s), Oral, Daily, # 90 tab(s), 3 Refill(s), Pharmacy: [facility] #[id number], Depression, major, recurrent, in remission, 158, cm, 11/05/23 7:04:00 EDT, Height, kg, 11/05/23 7:04:00 EDT, Dosing Weight Start Date: 11/25/23 Status: Ordered Quantity: 90.0 Unit: tab(s) Repeat number: 4 Indications: Major depressive disorder, recurrent, in remission, unspecified; famotidine 40 mg oral tablet (3 sources) Histamine-2 Receptor Antagonist Start: 12-20-2024 take 1 tablet by mouth once daily hydroCHLOROthiazide 25 mg oral tablet (1 source) Thiazide Diuretic Start: 01-08-2024 hydroCHLOROthiazide 25 mg oral tablet Dose : 25 mg = 1 tab(s), Oral, qDay, # 30 tab(s), 0 Refill(s), Pharmacy: [facility] #[id number], 158, cm, 12/01/23 11:29:00 EDT, Height, kg, 12/01/23 11:29:00 EDT, Dosing Weight Start Date: 01/08/24 Status: Ordered hydrocortisone acetate 25 mg rectal suppository (1 source) Corticosteroid Start: 07-03-2022 hydrocortisone (HEMORRHOIDAL HC) 25 mg suppository insert 1 suppository rectally at bedtime for 10 NIGHTS 07/03/2022 Active hydroxychloroquine sulfate 200 mg oral tablet (20 sources) Antimalarial, Antirheumatic Agent Start: 10-13-2024 take 1 tablet by mouth twice daily Start: 12-03-2020 End: 07-11-2024 hydroxychloroquine 200 mg [...] # 90 tab(s), 3 Refill(s), Pharmacy: [facility], 158, cm, 12/03/20 10:06:00 EDT, Height, kg, 12/03/20 10:06:00 EDT, Dosing Weight Start Date: 12/03/20 Stop Date: 11/28/21 Status: Ordered metoprolol tartrate 25 mg oral tablet (20 sources) beta-Adrenergic Sandoval Start: 10-13-2024 take 1 tablet by mouth twice daily Start: 05-30-2020 End: 03-03-2024 metoprolol tartrate 25 mg or al tablet Dose : 25 mg = 1 tab(s), Oral, BID, # 180 tab(s), 3 Refill(s), Pharmacy: [facility] #[id number], 158, cm, 11/05/23 7:04:00 EDT, Height, kg, [...] pantoprazole 40 mg delayed release oral tablet (20 sources) Proton Pump Inhibitor Start: 05-30-2022 End: 05-18-2025 take 1 tablet by mouth twice daily Start: 08-29-2020 End: 05-11-2022 pantoprazole 40 mg oral ente rodney coated tablet Dose : 40 mg = 1 tab(s), Oral, BID, # 60 tab(s), 5 Refill(s), Pharmacy: [facility] #[id number], 160, cm, 06/04/21 7:27:00 EST, Height, kg, 06/04/21 7:27:00 EST, Dosing Weight Start Date: 11/12/21 Stop Date: 05/11/22 Status: Ordered phentermine hydrochloride 37.5 mg oral tablet (3 sources) Sympathomimetic Amine Anorectic Start: 10-23-2023 End: 02-23-2024 phentermine 37.5 mg oral tablet Dose : 37.5 mg = 1 tab(s), Oral, qAM, X 30 day(s), # 30 tab(s), 2 Refill(s), 02/23/24 7:35:00 AM EST, Pharmacy: [facility] #[id number], Morbid obesity with body mass index of 50 or higher, 158, cm, 11/05/23 7:04:00 EDT, Height, 154.8, kg, 11/05/23 7:04:00 EDT, Dosing Weight Start Date: 11/25/23 Stop Date: 02/23/24 Status: Ordered polyethylene glycol 3350 51456 mg powder for oral solution (1 source) [...] qWeek, # 13 cap(s), 3 Refill(s), Pharmacy: [facility] #[id number], Benign essential hypertension, 158, cm, 11/05/23 7:04:00 EDT, Height, kg, 11/05/23 7:04:00 EDT, Dosing Weight Start Date: 11/25/23 Stop Date: 11/19/24 Status: Ordered Quantity: 13.0 Unit: cap(s) Repeat number: 4 Indications: Essential (primary) hypertension; Start: 11-25-2023 End: 11-19-2024 Vitamin D3 1250 mcg (50,000 intl units) oral capsule Dose : 1,250 mcg = 1 cap(s), Oral, qWeek, # 13 cap(s), 3 Refill(s), Pharmacy: [facility] #[id number], Benign essential hypertension, 158, cm, 11/05/23 7:04:00 EDT, Height, kg, 11/05/23 7:04:00 EDT, Dosing Weight Start Date: 11/25/23 Stop Date: 11/19/24 Status: Ordered Start: 09-26-2022 End: 09-21-2023 Vitamin D3 1250 mcg (50,000 intl units) oral capsule Dose : 1,250 mcg = 1 cap(s), Oral, qWeek, # 13 cap(s), 3 Refill(s), Pharmacy: [facility] #[id number], Benign essential hypertension, 159, cm, 09/26/22 7:30:00 [...] Refill(s), DVT Treatment Dosing, Pharmacy: [facility] #[id number], 158, cm, 10/23/23 9:04:00 EDT, Height, 156, kg, 10/23/23 9:04:00 EDT, Dosing Weight Start Date: 10/28/23 Stop Date: 11/27/23 Status: Ordered ferrous gluconate 324 mg oral tablet (8 sources) Start: 10-23-2023 End: 05-23-2024 ferrous gluconate 324 mg (38 mg elemental iron) oral tablet Dose : 324 mg = 1 tab(s), Oral, BID, # 180 tab(s), 1 Refill(s), Pharmacy: [facility] #[id number], Chronic sinusitis Iron deficiency anemia, 158, cm, [...] 180 tab(s), 1 Refill(s), Pharmacy: [facility] #[id number], Chronic sinusitis Iron deficiency anemia, 159, cm, 12/26/22 7:26:00 EDT, Height, kg, 12/26/22 7:26:00 EDT, Dosing Weight Start Date: 12/26/22 Stop Date: 06/24/23 Status: Ordered ferrous sulfate 324 mg delayed release oral tablet (2 sources) Start: 12-20-2024 End: 01-04-2025 take 1 tablet by mouth once daily Ferrous Sulfate 324 mg (65 mg iron) tablet,delayed release (DR/EC) Discontinued 324 mg PO daily December 20, 2024 12:00am January 04, 2025 10:02am Problems Active Problems Problem Classification Problem Date [...] Translations: [Hypertensive disorder] Onset: 3 12-21-2018 Chronic Comment on above: CONTROLLED WITH MED Gastrointestinal hemorrhage (1 source) Hemorrhage of rectum [...] 07-28-2024 Episodic Other and unspecified benign neoplasm (13 sources) History of polyp of colon; Translations: [...] diverticulosis] Onset: 5 Episodic Other gastrointestinal disorders (15 sources) Constipation; Translations: [Constipation, unspecified] 10-13-2024 Episodic [...] Onset: 4 Episodic Other lower respiratory disease (13 sources) Dyspnea on exertion; Translations: [Other forms of dyspnea] 11-05-2023 Episodic Other lower respiratory disease (8 sources) Wheezing 11-05-2023 Episodic Other lower respiratory disease (1 source) Hypoxia; Translations: [Hypoxemia] 07-11-2024 Episodic Other lower respiratory disease (1 source) Other forms of dyspnea; Translations: [MUNOZ (dyspnea on exertion)] Onset: 5 Episodic Other lower respiratory disease (1 source) Hypoxemia; Translations: [Hypoxia] Onset: 5 Episodic Other lower respiratory disease (3 sources) Shortness of breath; Translations: [Shortness of breath] Onset: 5 Episodic Other nutritional; endocrine; and [...] Translations: [Diarrhea, unspecified] Onset: 07-11-2024 Episodic Other non-traumatic joint disorders (2 sources) Pain in right knee; Translations: [Pain of right knee joint] Onset: 08-05-2024 Episodic Results Test Name Value Interpretation Reference Range Facility Cardiology Visit Reporton Cardiology Visit Report [facility] [place] [address] [facility] [place] [address] OFFICE VISIT Date of Service: 01/04/25 MR#: [id number] Acct: [id number] Name: RAIN MURPHY Rep #: [id number] : 1975 Provider: Dr. Grace grissom MD Age/Sex: 49/F Location: [facility] [place] Status: Signed HPI HPI History of Present Illness Details: Patient is a pleasant 49-year-old white female that comes in today for a new patient visit. She is referred for shortness of breath and dyspnea on exertion. The patient carries a history of obesity hyperlipidemia rheumatoid arthritis and hypertension. She also has a strong family history of father and brother with coronary disease at an early age. She has never smoked and she is not diabetic. The patient is currently undergoing sleep apnea evaluation. The patient reports that she has been short of breath with climbing stairs for about a year. She is noted this at a previous job and was evaluated back in November 2023 with a echocardiogram which showed normal LV size and function EF of 60-65% there was no wall motion abnormality and normal diastolic function. The aortic valve was thickened consistent with sclerosis with no stenosis right ventricular systolic pressure was mildly increased at 40 mmHg the right atrium estimated right atrial pressure was 3. The patient had a CTA done October 2023 showed small areas of lingular and left lower lobe atelectasis no evidence of pulmonary emboli. There was no evidence or changes consistent with rheumatoid disease noted on the CT either. Patient's ECG in office today shows sinus rhythm with a first-degree AV block low voltage QRS consistent with her body habitus and nonspecific minor ST changes. The patient has never had a stress test done. Her lipids are elevated with LDL of 139. Intake Vital Signs 12/05/24 07:32 01/04/25 09:59 Height 5 ft 1 in 5 ft 1.5 in Weight: 311 lb BMI 57.8 BP 101/70 Blood Pressure Location Lt brachial Position Sitting Respiration 18 Pulse 71 Pulse Source Monitor Pulse Oximetry (%) 94 Oxygen Delivery Method room air Intake Visit Reasons: SOB/FAM HX (SELF) Charger Tester Required: No Accompanied by: Self Is patient in pain?: No Allergies Sulfa (Sulfonamide Antibiotics) Allergy (Verified 01/04/25 09:59) NEEDS FOLLOW-UP sulfamethoxazole (From Bactrim) Allergy (Verified 01/04/25 09:59) NEEDS FOLLOW-UP trimethoprim (From Bactrim) Allergy (Verified 01/04/25 09:59) NEEDS FOLLOW-UP Medications ???Medication ???Instructions ???Recorded ???Confirmed ???Type cholecalciferol (vitamin D3) 1,250 1,250 mcg PO QWEEK 10/13/2412/13 History mcg (50,000 unit) capsule clonazepam 1 [...] mg PO QDAY #30 tabs 12/20/24 Rx Ejection fraction %: 63 Have you fallen in the past year?: No PFSH Medical History Hyperlipidemia Syncope H/O psoriasis Post-menopausal Wears glasses Depression Anxiety Bruising History of steroid therapy Rheumatoid arthritis DVT (deep venous thrombosis) Easy bruising Migraine headache H/O hemorrhoids History of IBS History of diverticulitis Gastric reflux Shortness of breath on exertion History of echocardiogram Hypertension Surgical History History of surgery History of nasal septoplasty History of cholecystectomy History of carpal tunnel release of both wrists Family History Father Dementia Depression Hypertension Hypercholesterolemia Brother Hypertension Hypercholesterolemia Social History Smoking Status: Never smoker alcohol intake: never substance use type: does not use caffeine: Yes ROS Const Const: Positive for fatigue; Negative for weakness ENT ENT: Negative for dizziness or balance problems Cardio Chest Pain: Yes Palpitations: No Edema: None Muscle aches with walking: None Resp Respiratory: Positive for SOB with activity; Negative for SOB at rest or SOB orthopnea SOB lying down GI GI: Positive for heartburn and bright, red blood in stools; Negative nausea or vomiting Musc Musc: Negative for musc (more content not included)... [facility] ABD Limited w/ Elastographyo n 01-03-2025 ABD Limited w/ Elastography [facility] [address] [place] [address] ABD Limited w/ Elastography MR#: [id number] Acct: [id number] Name: RAIN MURPHY Rep #: [id number] : 1975 F 49 From: Doe Champion MD PCP: Dr. Berna Howell MD Status: REG CLI Study: ABD Limited w/ Elastography Date of Exam: 12/13 07/05 Exam# [id number] Ordering Dr: Peace Beaver PROCEDURE: ABD LIMITED W/ ELASTOGRAPHY, 01/03/2025 REASON FOR EXAM: ESOPHAGEAL VARICES COMPARISON: None TECHNIQUE: Grayscale and color Doppler imaging of the right upper quadrant was performed. Elastography was performed for non-invasive assessment of liver tissue stiffness utilizing a Wattage S-shear wave imaging unit. FINDINGS: Liver: Slightly heterogeneous appearance. 17.4 cm in length. Gallbladder: Cholecystectomy. Biliary tree: CBD top-normal in caliber at 7 mm, possible post cholecystectomy effect. Pancreas: Partially obscured by shadowing bowel gas, grossly unremarkable as visualized. Right kidney: Unremarkable. 9.7 cm in length. Other: No visualized free fluid. Hepatic elastography: Number of measurements: 6. US probe: CA1-7A. EQI median: 5.5 kPa EQI median velocity: 1.35 m/s IQR/Med: 28.6% (kPa) and 14.8% (m/s). If the IQR/Med is IQR/median >30% (for kPa) or >15% in m/s, the variance in the measurements is a large and the accuracy of the measurement may be in question. US/ABD Limited w/ Elastography IMPRESSION: 1. Borderline slightly heterogeneous hepatic echotexture could indicate early steatosis or other chronic liver disease. Correlate with clinical/laboratory evaluation. 2. Liver stiffness is 5.5 kPa. Per the below 2020 SRU criteria, this rules out compensated advanced chronic liver disease in the absence of other known clinical signs. If there are known clinical signs, further testing may be needed for confirmation. 3. Additional description as above. Assessment is per the Update to the SRU Liver Elastography Consensus Statement (2020) Note that the above assessment of liver fibrosis is vendor-neutral and intended for use in fibrosis related to viral etiologies and non-alcoholic fatty-liver disease (NAFLD); in causes other than viral hepatitis and NAFLD, the cutoff values are currently not well established. In some patients with NAFLD, the cutoff values for cACLD may be lower (7-9 kPa). Note also that in the setting of elevated LFTs, nonfasting or vascular congestion, the stage of lifer fibrosis may be overestimated. Previous SRU reference values: <1.37 m/s (5.7kPa): No to mild fibrosis 1.37 m/s - 2.2 m/s: Moderate to severe fibrosis >2.2 m/s (15kPa): Significant fibrosis / cirrhosis Reading Location: [id number] CC: Dr. Berna Howell MD; HECTOR [employer]: Signed [facility] Gastroenterology Visit Repor ton 12-20-2024 Gastroenterology Visit Report [facility] [address] [place] [address] OFFICE VISIT Date of Service: 12/20/24 MR#: [id number] Acct: [id number] Name: RAIN MURPHY Rep #: [id number] : 1975 Provider: HECTOR Bay Age/Sex: 49/F Location: [facility] [place] Status: Signed Intake Vital Signs 03/13/20 00:08 [...] (vitamin D3) 1,250 1,250 mcg PO QWEEK 10/13/2401/05 History mcg (50,000 unit) capsule clonazepam 1 [...] and comfortable Nutritional Appearance: overweight Orientation: alert HENMT Head: normal to inspection Eyes General: appearance [...] Plan (1) (more content not included)... [facility] [employer] [facility] Cytology Reporton 2024 [facility] [employer] [facility] Cytology Report . Pathology Reports Accession: Collected Date/Time: Received Date/Time: Pathologist: [id number] 12/13/2024 09:23 EDT 12/13/2024 18:00 EDT [employer] [facility] Cytology Report SPECIMEN: Specimen Description: Liquid Prep w/ HPV Specimen: Cervical Screening or Diagnostic: Screening RELEVANT HISTORY: LMP: postmenopausal SPECIMEN ADEQUACY: SATISFACTORY FOR EVALUATION Endocervical/Transformational zone component present INTERPRETATION/RESULTS: NEGATIVE FOR INTRAEPITHELIAL LESION OR MALIGNANCY HIGH RISK HPV TESTING: HPV Screen Only, BRITTON Probe Negative HPV Screen Only, BRITTON Probe Interp Data: Molecular methodology performed on the Good[employer] System. The APTIMA HPV Screening Assay is [...] and evaluated with the assistance of the [employer] ThinPrep Test Imaging System. Verified by Pathology report verified by [facility] Screened by: AKOSUA Electronically signed by Kimber MIN (ASC) Sign-Out Date: 12/16/2024 12:08 Performing Lab: [facility], [address] [place] [address] Pathology Dept Pathology Reports Accession: Collected Date/Time: Received Date/Time: Pathologist: [id number] 12/13/2024 09:23 EDT 12/13/2024 18:00 EDT Disclaimer The Pap test is a screening test for cervical cancer. As evidenced by published data, it is subject to both inherent false negative and false positive results. Your patient's results should be interpreted in context with pertinent clinical history including gynecological examination. Normal [facility] US PELVIS NON-OB W/TRANSVAGI NALon 12-16-2024 [...] 12/16/2024 9:25:41 AM Ordering Provider: PEACE LEUNG [facility] BVPCRon 12-14-2024 Bacterial Vaginosis Negative Normal Negative [facility] Comment on above: Result Comment: Mole cular methodology performed on the [employer] [place] System. Performed By: #### A HEATHER DECKER, CMP, GFR, CBC, ADIFF, LIP #### [place] [address] CTVAGon 12-14-2024 Chlam Source Vaginal Normal [facility] Comment on above: Performed By: #### A HEATHER DECKER, CMP, GFR, CBC, ADIFF, LIP #### [place] [address] Chlamydia Trachomatis, TMA Negative Normal Negative [facility] Comment on above: Result Comment: Mole cular methodology performed on the [employer] [place] System. Performed By: #### A HEATHER DECKER, ELEANOR, GFR, CBC, ADIFF, LIP #### [place] [address] CVTVon 12-14-2024 Ntaacha glabrata Negative Normal Negative [facility] Comment on above: Performed By: #### A HEATHER DECKER, CMP, GFR, CBC, ADIFF, LIP #### [place] [address] Natacha Species Negative Normal Negative [facility] Comment on above: Result Comment: Mole cular methodology performed on the [employer] [place] System. Performed By: #### A HEATHER DECKER, CMP, GFR, CBC, ADIFF, LIP #### [address] [address] Trichomonas vaginalis Negative Normal Negative [facility] Comment on above: Performed By: #### A HEATHER DECKER, CMP, GFR, CBC, ADIFF, LIP #### [address] [address] GCVAGon 12-14-2024 GC PCR Source Vaginal Normal [facility] Comment on above: Performed By: #### A HEATHER DECKER, CMP, GFR, CBC, ADIFF, LIP #### [address] [address] Neisseria gonorrhoeae, TMA Negative Normal Negative [facility] Comment on above: Result Comment: Mole cular methodology performed on the [employer] System. Performed By: #### A HEATHER DECKER, CMP, GFR, CBC, ADIFF, LIP #### [address] [address] HPVSCon 12-14-2024 HPV Source Cervix Normal [facility] Comment on above: Order Comment: Order placed by AP_HPV_ORDER rule from [id number] Performed By: #### A HEATHER DECKER, ELEANOR, GFR, CBC, ADIFF, LIP #### [address] [address] HPV Screen Only, BRITTON Probe Negative Normal Negative [facility] Comment on above: Order Comment: Order placed by AP_HPV_ORDER rule from [id number] Result Comment: Mole cular methodology performed on the [employer] System. The APTIMA HPV Screening Assay is [...] MDW, CMP, GFR, CBC, ADIFF, LIP #### [facility] [place] [address] [place], [place] [address] [employer] Administrator Cytology Reporton 2024 [employer] Administrator Cytology Report Event Display: GY Co mment This Pap Test was successfully processed and evaluated with the assistance of the [employer] ThinPrep Test Imaging System. PAKO Linda (ASCP) Kimber:VERIFY; Authored Date: [facility] Work Phone: [employer] Administrator Cytology Report Event Display: GY Si gnature Pathology report verified by [facility] Screened by: KS Electronically signed by Kimber MIN (ASCP) Sign-Out Date: 12/16/2024 12:08 Performing Lab: [facility], [address] [place] [address] Pathology Dept PAKO LindaASCP) Kimber:VERIFY; Authored Date: [facility] Work Phone: [employer] Administrator Cytology Report Event Display: GY Sp ecimen Specimen Description: Liquid Prep w/ HPV Specimen: Cervical Screening or Diagnostic: Screening PAKO Linda (ASCP) Kimber:VERIFY; Authored Date: [facility] Work Phone: [employer] Administrator Cytology Report Event Display: GY Cl in Info LMP: postmenopausal PAKO Linda (ASCP) Kimber:VERIFY; Authored Date: [facility] Work Phone: [employer] Administrator Cytology Report Event Display: GY In terp Dx NEGATIVE FOR INTRAEPITHELIAL LESION OR MALIGNANCY PAKO Linda (ASCP) Kimber:VERIFY; Authored Date: [facility] Work Phone: [employer] Administrator Cytology Report Event Display: SURINDER Elliott The Pap test is a screening test for cervical cancer. As evidenced by published data, it is subject to both inherent false negative and false positive results. Your patient's results should be interpreted in context with pertinent clinical history including gynecological examination. PAKO Linda (ASCP) Kimber:VERIFY; Authored Date: [facility] Work Phone: [employer] Administrator Cytology Report Event Display: GY Hi gh Risk HPV Testing HPV Screen Only, BRITTON Probe Negative HPV Screen Only, BRITTON Probe Interp Data: Molecular methodology performed on the Good[employer] System. The APTIMA HPV Screening Assay is [...] practice guidelines. As of: 12/16/24 12:08 EDT PAKO Linda (ASCP) Kimber:VERIFY; Authored Date: [id number] [facility] Work Phone: LABORATORYOrdered By: SYSTEM SYSTEM on 12-13-2024 Bacterial Vaginosis Negative 2 (12/13/24 4:18 PM) Normal Negative [facility]Sero [facility] Comment on above: Interpretive Data: Makenzie munson methodology performed on the [employer] [place] System. C. trachomatis rRNA BRITTON+probe Ql (Vag fld) Negative 4 (12/13/24 4:18 PM) Normal Negative [facility] Viro/Sero SS Comment on above: Interpretive Data: M olecular methodology performed on the [employer] [place] System. Natacha glabrata PCR Negative (12/13/24 4:18 PM) Normal Negative [facility] Auto Viro/Sero SS Natacha Species Negative 1 (12/13/24 4:18 PM) Normal Negative [facility] Auto Viro/Sero SS Comment on above: Interpretive Data: M olecular methodology performed on the [employer] [place] System. Chlam Source Vaginal *NA* (12/13/24 4:18 PM) Invalid Interpretation Code AH Auto Viro/Sero SS GC PCR Source Vaginal *NA* (12/13/24 4:18 PM) Invalid Interpretation Code AH Auto Viro/Sero SS N. gonorrhoeae rRNA BRITTON+probe Ql (Vag fld) Negative 5 (12/13/24 4:18 PM) Normal Negative [facility] Auto Viro/Sero SS Comment on above: Interpretive Data: M olecular methodology performed on the [employer] [place] System. Trichomonas vaginalis Negative (12/13/24 4:18 PM) Normal Negative AH Auto Viro/Sero SS HPV E6+E7 mRNA BRITTON+probe Ql (Cvx) Negative 3 (12/13/24 9:23 AM) Normal Negative [facility] Auto Viro/Sero SS Comment on above: Interpretive Data: M olecular methodology performed on the [employer] [place] System. The APTIMA HPV Screening Assay is [...] Viro/Sero SS Colonoscopy Reporton 025 Colonoscopy Report [facility] Medical Records Department [address] [place] [address] Colonoscopy Report MR#: [id number] Acct: [id number] Name: RAIN MURPHY Rep #: [id number] : 1975 49 From: Jose Pettit DO PCP: Dr. Berna Howell MD Status:[facility] Patient Name: Rain Murphy Procedure Date: 12/05/2024 8:54 AM Date of : 1975 Age: 49 Procedure: Colonoscopy Indications: Screening for colorectal malignant neoplasm Providers: Jose Pettit DO Referring MD: Berna Howell Medicines: Monitored Anesthesia Care Patient Profile: This [...] screening purposes. Procedure Code(s): --- Professional --- 06763, Colonoscopy, flexible; diagnostic, including collection of specimen(s) by brushing or washing, when performed (separate procedure) CPT copyright 2021 [employer]. All rights reserved. The codes documented in this report are preliminary and upon water control station engineer review may be revised to meet current compliance requirements. Jose Pettit DO 12/05/2024 9:22:01 AM This report has been signed electronically. Number of Addenda: 0 Note Initiated On: 12/05/2024 8:54 AM 12/05/24 0922 Date Jose Pettit DO Maricruznabil Signature: Date (if indicated) CC: Dr. Berna Howell MD; Jose Pettit DO Date Dictated: 12/05/24 0854 Date Transcribed: Assembler Caterpillar Spider: RF Signed Normal [facility] EGD Reporton 12-05-2024 EGD Report [facility] Medical Records Department [address] [place] [address] EGD Report MR#: [id number] Acct: [id number] Name: RAIN MURPHY Rep #: [id number] : 1975 49 From: Jose Pettit DO PCP: Dr. Berna Howell MD Status:[facility] Patient Name: Rain Murphy Procedure Date: 12/05/2024 8:36 AM Date of : 1975 Age: 49 Procedure: Upper GI endoscopy Indications: Epigastric abdominal pain Providers: Jose Pettit DO Referring MD: Berna Howell Medicines: Monitored Anesthesia Care Patient Profile: This [...] pathology results. Procedure Code(s): --- Professional --- 03421, Small intestinal endoscopy, enteroscopy beyond second portion of duodenum, not including ileum; with biopsy, single or multiple CPT copyright 2021 [employer]. All rights reserved. The codes documented in this report are preliminary and upon water control station engineer review may be revised to meet current compliance requirements. Jose Pettit DO 12/05/2024 9:19:46 AM This report has been signed electronically. Number of Addenda: 0 Note Initiated On: 12/05/2024 8:36 AM 12/05/24918 Date Jose Pettit DO [facility] Signature: Date (if indicated) CC: Dr. Berna Howell MD; Jose Pettit, DO Date Dictated: 12/05/24835 Date Transcribed: Assembler Caterpillar Spider: AYAAN Signed Normal [facility] Immunohistochemical Stainson 12-05-2024 Immunohistochemical Stains ----- Patient Age/Sex Location Account Attending Physician ----- RAIN MURPHY 49/F EN [id number] Jose Pettit DO ----- Specimen: [id number] Received: 12/05/24 Status: YANA Franco Num: [id number] Spec Type: EGD BIOPSY Subm Dr: DO ELOISE FuER OPERATION: Colonoscopy, EGD, biopsy PRE-OP DIAGNOSIS: Constipation, history of colonic polyps, GERD TISSUE SUBMITTED: A- Gastric body biopsy ----- MICROSCOPIC DIAGNOSIS A. Gastric body, biopsy: Fundic and antral mucosa with chronic inflammation. IHC negative for H. pylori organisms. MICROSCOPIC DESCRIPTION Slides are reviewed. All matched controls reacted appropriately. These tests were developed and their performance characteristics determined by [facility]. They may not have been cleared or approved by the U.S. Food and Drug Administration. The FDA has determined that such clearance or approval is not necessary. The above immunohistochemical/dualISH markers are viewed by the Pathologist. GROSS DESCRIPTION A. Received in fixative is one container labeled with the patient's name and designated Gastric body biopsy. The specimen consists of two irregular fragments of light dooley soft tissue that measure 0.5 and 0.8 cm. The specimen is totally submitted in one cassette. [place] 12/05/2024 CPT:73785,75482 ----- Patient Age/Sex Location Account Attending Physician ----- RAIN MURPHY 49/F EN [id number] Jose Pettit DO ----- Signed (signature on file) Dr. Jessa Berry MD 12/19/24 1604 ----- Normal [facility] Comment on above: Performed By: #### [facility] #### [facility] [address] [place], [address] MR/OP.PROVATon 12-05-2024 MR/OP.PROVAT [facility] Medical Records Department [address] [place] [address] Provation Physician Letter MR#: [id number] Acct: [id number] Name: RAIN MURPHY Rep #: [id number] : 1975 49 From: Jose Pettit DO PCP: Dr. Berna Howell MD Status:[facility] 12/05/2024 Berna Howell Re : Colonoscopy procedure for Rain Murphy [...] has been signed electronically. 12/05/24921 Date Jose Pettit DO Cosigner Signature: Date (if indicated) CC: Dr. Berna Howell MD; Jose Pettit DO Date Dictated: 12/05/24853 Date Transcribed: Assembler Caterpillar Spider: RF Signed [facility] MR/OP.[facility] Medical Records Department [address] [place] [address] Provation Physician Letter MR#: [id number] Acct: [id number] Name: RAIN MURPHY Rep #: [id number] : 1975 49 From: Jose Pettit DO PCP: Dr. Berna Howell MD Status:[facility] 12/05/2024 Berna Howell Re : Upper GI endoscopy procedure for [...] signed electronically. 12/05/24918 Date Jose Pettit DO Cosignnevaeh Signature: Date (if indicated) CC: Dr. Berna Howell MD; Jose Pettit DO Date Dictated: 12/05/24835 Date Transcribed: Assembler Caterpillar Spider: AYAAN Signed [facility] MR/POSTOP.[facility] 12-05-2024 MR/POSTOP.[facility] Medical Records Department [address] [place] [address] Anesthesia Postop Eval I 12/05/24915 MR#: [id number] Acct: [id number] Name: RAIN MURPHY Rep #: [id number] : 1975 49 From: Talon Parmar PCP: Dr. Berna Howell MD Status:REG SDC Y Race: C Location: [place] [address] Anesthesia: Postop Eval I Current Vital Signs [...] Eval 1 completed: Yes 12/05/24916 Date Talon Aguirre Signature: Date CC: Signed Normal [facility] MR/OHYRLJLH6no 12-05-2024 MR/POSTOPAN2 [facility] Medical Records Department [address] [place] [address] Anesthesia Postop Eval II 12/05/24941 MR#: [id number] Acct: [id number] Name: RAIN MURPHY Rep #: [id number] : 1975 49 From: James Rivera MD PCP: Dr. Berna Howell MD Status:REG SDC Y Race: C Location: [address] Anesthesia Postop Eval I Sum Postop [...] No Vomiting: No Complications Anesthesia Complication: No 12/05/24941 Date James Rivera MD Cosigner Signature: Date CC: Signed Normal [facility] MR/Myrna 12-01-2024 MR/SUNNI [facility] Medical Records Department [address] [place] [address] PAT - Anesthesia 12/01/24 1348 MR#: [id number] Acct: [id number] Name: RAIN MURPHY Rep #: [id number] : 1975 49 From: James Rivera MD PCP: Dr. 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 Hx Hospitalization Any Problems With Anesthesia Yes: [...] take am of surgery PONV PONV - paralegal secretary: PONV - paralegal secretary Female Yes 12/01/24 10:35 HX of Motion [...] 03/13/20 00:08 Respiratory Assessment Respiratory Assessment - paralegal secretary: Respiratory Tract Infection Hx - paralegal secretary Hx Respiratory Tract Infection No 12/01/24 10:35 STOP Sleep Apnea STOP Sleep Apnea - paralegal secretary: STOP Sleep Apnea - paralegal secretary Hx Hypertension Yes 12/01/24 10:35 Hx Sleep [...] Tobacco Use History Tobacco Use History - paralegal secretary: Tobacco Use History - paralegal secretary Tobacco Use Smoking Status Never smoker 12/01/24 10:35 Hx Tobacco Use No 12/01/24 10:35 Years Smoking Packs Smoked per Day Smoking Cessation Date was within the last 15 years Hx Smoking Cessation Date Hx Smoking Cessation Counseling Hematologic Medial History Hematologic Hx - paralegal secretary: 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 Specify any problems Hx of Preganancy in last 3 No 12/01/24 10:35 Months Nurse Filling Out Transfusion [facility] 12/01/24 10:35 Questions: Date: 12/01/24 12/01/24 10:35 Time: 10:46 12/01/24 10:35 Patient unable to answer at this time (ie. confused, unrespo /Reproduction History /Reproductive History - paralegal secretary: /Reproductive Hx- paralegal secretary Hx Now No 12/01/24 10:35 Gestational Age (in weeks): EDC: Hx Hx Para Hx Section SAB No 12/01/24 10:35 PFSH Medical History (Updated 12/01/24 @ 10:53 by [...] 25 mg (more content not included)... Normal [facility] Gastroenterology Visit Repor ton 10-13-2024 Gastroenterology Visit Report [facility] Gastroenterology [address] [place] [address] OFFICE VISIT Date of Service: 10/13/24 MR#: [id number] Acct: [id number] Name: RAIN MURPHY Rep #: [id number] : 1975 Provider: HECTOR [place] Age/Sex: 48/F Location: [facility] Status: Signed Intake Vital Signs 03/13/20 00:08 [...] to the office today for establishment with [facility]. [facility] ED 6.2.25 wiht LLQ pain. Pt with [...] after procedu (more content not included)... Normal [facility] .Auto Diffon 10-03-2024 Basophil, Absolute 0.0 10 3/mcL Normal 0.0-0.3 [facility] Comment on above: Performed By: #### A DIFF, VIDH, ANEU, CBC, GFR, LIPID, CMP, A1C #### [place] [id number] [place], [place] [address] Basophils/100 WBC (Bld) 0.5 % Normal 0.0-2.5 [facility] Comment on above: Performed By: #### A DIFF, VIDH, ANEU, CBC, GFR, LIPID, CMP, A1C #### [place] [address] [place], [place] [address] Eosinophil, Absolute 0.5 10 3/mcL Normal 0.0-0.7 [facility] Comment on above: Performed By: #### A DIFF, VIDH, ANEU, CBC, GFR, LIPID, CMP, A1C #### [address] [address] Eosinophils/100 WBC (Bld) 6.6 % High 0.0-6.0 [facility] Comment on above: Performed By: #### A DIFF, VIDH, ANEU, CBC, GFR, LIPID, CMP, A1C #### [address] [address] Lymphocyte, Absolute 1.7 10 3/mcL Normal 0.9-4.3 [facility] Comment on above: Performed By: #### A DIFF, VIDH, ANEU, CBC, GFR, LIPID, CMP, A1C #### [address] [address] Lymphocytes/100 WBC (Bld) 24.2 % Normal 20.0-40.0 [facility] Comment on above: Performed By: #### A DIFF, VIDH, ANEU, CBC, GFR, LIPID, CMP, A1C #### [address] [address] Monocyte, Absolute 0.5 10 3/mcL Normal 0.1-1.4 [facility] Comment on above: Performed By: #### A DIFF, VIDH, ANEU, CBC, GFR, LIPID, CMP, A1C #### [address] [address] Monocytes/100 WBC (Bld) 6.3 % Normal 2.0-13.0 [facility] Comment on above: Performed By: #### A DIFF, VIDH, ANEU, CBC, GFR, LIPID, CMP, A1C #### [address] [address] Neutrophils/100 WBC (Bld) 62.4 % Normal 50.0-75.0 [facility] Comment on above: Performed By: #### A DIFF, VIDH, ANEU, CBC, GFR, LIPID, CMP, A1C #### [place] [address] [place], [place] [address] .GFRon 10-03-2024 Estimated Glomerular Filtration Rate 68 ml/min/1.73sqm Normal [facility] Comment on above: Result Comment: Stages [...] DECKER, ELEANOR, GFR, CBC, ADIFF, LIP #### [address] [address] .NEUABSon 10-03-2024 Neutrophil, Absolute 4.5 10 3/mcL Normal 2.3-8.1 [facility] Comment on above: Performed By: #### A HEATHER DECKER, ELEANOR, GFR, CBC, ADIFF, LIP #### [place] [address] [place], [place] [address] A1Con 10-03-2024 Glucose [Mass/Vol] 105 mg/dL Normal [facility] Comment on above: Result Comment: Deepti mated Average Glucose calculated by equation ((28.7xA1C)-46.7) Estimated average glucose (eAG) is a calculated value from Hemoglobin A1C and is cash posting representative of the average blood glucose level in the last 2-3 month period. Normal range: less than 114 mg/dL Performed By: #### A HEATHER DECKER, ELEANOR, GFR, CBC, ADIFF, LIP #### [place] [id number] [place], [place] [address] HbA1c (Bld) [Mass fraction] 5.3 % Normal 4.3-6.4 [facility] Comment on above: Performed By: #### A HEATHER DECKER, CMP, GFR, CBC, ADIFF, LIP #### [address] [address] CBCon 10-03-2024 Erythrocyte distribution width (RBC) [Ratio] 15.0 % Normal 11.5-15.5 [facility] Comment on above: Performed By: #### A DIFF, VIDH, ANEU, CBC, GFR, LIPID, CMP, A1C #### [place] [address] Hematocrit (Bld) [Volume fraction] 41.3 % Normal 34.0-46.0 [facility] Comment on above: Performed By: #### A DIFF, VIDH, ANEU, CBC, GFR, LIPID, CMP, A1C #### [place] [address] Hgb 13.8 G/dL Normal 12.0-16.0 [facility] Comment on above: Performed By: #### A DIFF, VIDH, ANEU, CBC, GFR, LIPID, CMP, A1C #### [address] [address] MCH (RBC) [Entitic mass] 28.6 pg Normal 27.0-33.0 [facility] Comment on above: Performed By: #### A DIFF, VIDH, ANEU, CBC, GFR, LIPID, CMP, A1C #### [address] [address] MCHC 33.4 G/dL Normal 32.0-36.0 [facility] Comment on above: Performed By: #### A DIFF, VIDH, ANEU, CBC, GFR, LIPID, CMP, A1C #### [address] [address] MCV (RBC) [Entitic vol] 85.6 fL Normal 80.0-99.0 [facility] Comment on above: Performed By: #### A DIFF, VIDH, ANEU, CBC, GFR, LIPID, CMP, A1C #### [place] [id number] [place] 278 10 3/mcL Normal 150-450 [facility] Comment on above: Performed By: #### A DIFF, VIDH, ANEU, CBC, GFR, LIPID, CMP, A1C #### [address] [address] Platelet mean volume (Bld) [Entitic vol] 7.8 fL Normal 6.6-10.5 [facility] Comment on above: Performed By: #### A DIFF, VIDH, ANEU, CBC, GFR, LIPID, CMP, A1C #### [address] [address] RBC 4.82 10 6/mcL Normal 4.10-5.30 [facility] Comment on above: Performed By: #### A DIFF, VIDH, ANEU, CBC, GFR, LIPID, CMP, A1C #### [address] [address] WBC 7.2 10 3/mcL Normal 4.5-10.8 [facility] Comment on above: Performed By: #### A DIFF, VIDH, ANEU, CBC, GFR, LIPID, CMP, A1C #### [address] [address] CMPon 10-03-2024 Albumin Level 3.8 G/dL Normal 3.5-5.0 [facility] Comment on above: Performed By: #### A HEATHER DECKER, CMP, GFR, CBC, ADIFF, LIP #### [place] [id number] Albumin/Globulin [Mass ratio] 0.9 {ratio} Low 1.1-2.5 [facility] Comment on above: Performed By: #### A MD JERONIMOW, CMP, GFR, CBC, ADIFF, LIP #### [place] [id number] ALP [Catalytic activity/Vol] 109 U/L Normal 40-135 [facility] Comment on above: Performed By: #### A MD JERONIMOW, CMP, GFR, CBC, ADIFF, LIP #### [place] [address] [place], [place] [address] ALT [Catalytic activity/Vol] 34 U/L Normal 14-59 [facility] Comment on above: Performed By: #### A HEATHER DECKER, CMP, GFR, CBC, ADIFF, LIP #### [address] [address] AST [Catalytic activity/Vol] 24 U/L Normal 10-40 [facility] Comment on above: Performed By: #### A HEATHER DECKER, CMP, GFR, CBC, ADIFF, LIP #### [address] [address] Bili Total 0.6 mg/dL Normal 0.2-1.0 [facility] Comment on above: Result Comment: Use of this assay is not recommended for patients undergoing treatment with eltrombopag due to the potential for falsely elevated results. Performed By: #### A HEATHER DECKER, ELEANOR, GFR, CBC, ADIFF, LIP #### [place] [id number] BUN/Creatinine Ratio 16 ratio Normal 7-27 [facility] Comment on above: Performed By: #### A HEATHER DECKER, ELEANOR, GFR, CBC, ADIFF, LIP #### [address] [address] Calcium [Mass/Vol] 9.3 mg/dL Normal 8.4-10.2 [facility] Comment on above: Performed By: #### A HEATHER DECKER, ELEANOR, GFR, CBC, ADIFF, LIP #### [address] [address] Chloride [Moles/Vol] 102 mmol/L Normal 98-107 [facility] Comment on above: Performed By: #### A HEATHER DECKER, ELEANOR, GFR, CBC, ADIFF, LIP #### [address] [address] CO2 [Moles/Vol] 30 mmol/L High 22-29 [facility] Comment on above: Performed By: #### A HEATHER DECKER, CMP, GFR, CBC, ADIFF, LIP #### [address] [address] Creatinine [Mass/Vol] 1.01 mg/dL High 0.51-0.95 [facility] Comment on above: Performed By: #### A HEATHER DECKER, CMP, GFR, CBC, ADIFF, LIP #### [address] [address] Electrolyte Balance 10.0 mEq/L Normal 4.0-15.0 [facility] Comment on above: Performed By: #### A HEATHER DECKER, CMP, GFR, CBC, ADIFF, LIP #### [address] [address] Globulin 4.3 G/dL Normal 2.7-4.4 [facility] Comment on above: Performed By: #### A HEATHER DECKER, ELEANOR, GFR, CBC, ADIFF, LIP #### [place] [address] Glucose [Mass/Vol] 102 mg/dL Normal 70-105 [facility] Comment on above: Performed By: #### A HEATHER DECKER, ELEANOR, GFR, CBC, ADIFF, LIP #### [address] [address] Potassium [Moles/Vol] 4.1 mmol/L Normal 3.5-5.1 [facility] Comment on above: Performed By: #### A HEATHER DECKER, ELEANOR, GFR, CBC, ADIFF, LIP #### [address] [address] Sodium [Moles/Vol] 142 mmol/L Normal 136-145 [facility] Comment on above: Performed By: #### A HEATHER DECKER, ELEANOR, GFR, CBC, ADIFF, LIP #### [address] [address] Total Protein 8.1 G/dL Normal 6.4-8.2 [facility] Comment on above: Performed By: #### A HEATHER DECKER, CMP, GFR, CBC, ADIFF, LIP #### [address] [place], [place] [address] Urea nitrogen [Mass/Vol] 16 mg/dL Normal 7-18 [facility] Comment on above: Performed By: #### A HEATHER DECKER, CMP, GFR, CBC, ADIFF, LIP #### [place] [id number] [place], [place] [address] LABORATORYOrdered By: SYSTEM SYSTEM on 10-03-2024 25-hydroxyvitamin [...] calculated value from Hemoglobin A1C and is cash posting representative of the average blood glucose level [...] 10-03-2024 Cholesterol [Mass/Vol] 198 mg/dL Normal 0-200 [facility] Comment on above: Result Comment: Chol esterol Reference Interval: Less than 200 Desirable 200-239 Borderline high risk 240 and above High risk Performed By: #### A HEATHER DECKER, CMP, GFR, CBC, ADIFF, LIP #### [address] [address] Cholesterol in HDL [Mass/Vol] 40 mg/dL Normal 40-60 [facility] Comment on above: Performed By: #### A HEATHER DECKER, CMP, GFR, CBC, ADIFF, LIP #### [address] [address] Cholesterol in LDL [Mass/Vol] 139 mg/dL High 0-130 [facility] Comment on above: Performed By: #### A HEATHER DECKER, CMP, GFR, CBC, ADIFF, LIP #### [address] [address] Triglyceride [Mass/Vol] 94 mg/dL Normal 0-150 [facility] Comment on above: Result Comment: Trig lyceride Reference Interval: Less than 150 Normal 150-199 Borderline high risk 200-499 High risk 500 or higher Very high risk Performed By: #### A HEATHER DECKER, CMP, GFR, CBC, ADIFF, LIP #### [address] [address] VIDHon 10-03-2024 Vit. D 25-Hydroxy 41.6 ng/mL Normal [facility] Comment on above: Result Comment: Inte rpretive Values Based on Total 25([place]) Vitamin D: Deficient <20 ng/mL Insufficient 20 - <30 ng/mL Sufficient 30-100 ng/mL Performed By: #### A HEATHER DECKER, CMP, GFR, CBC, ADIFF, LIP #### [address] [address] .Auto Diffon 09-12-2024 Basophil, Absolute 0.0 10 3/mcL Normal 0.0-0.3 [facility] Comment on above: Performed By: #### A HEATHER DECKER, CMP, GFR, CBC, ADIFF, LIP #### [address] [address] Basophils/100 WBC (Bld) 0.4 % Normal 0.0-2.5 [facility] Comment on above: Performed By: #### A HEATHER DECKER, CMP, GFR, CBC, ADIFF, LIP #### [address] [address] Eosinophil, Absolute 0.5 10 3/mcL Normal 0.0-0.7 [facility] Comment on above: Performed By: #### A HEATHER DECKER, CMP, GFR, CBC, ADIFF, LIP #### [address] [address] Eosinophils/100 WBC (Bld) 4.9 % Normal 0.0-6.0 [facility] Comment on above: Performed By: #### A HEATHER DECKER, CMP, GFR, CBC, ADIFF, LIP #### [address] [address] Lymphocyte, Absolute 1.9 10 3/mcL Normal 0.9-4.3 [facility] Comment on above: Performed By: #### A HEATHER DECKER, CMP, GFR, CBC, ADIFF, LIP #### [address] [address] Lymphocytes/100 WBC (Bld) 21.1 % Normal 20.0-40.0 [facility] Comment on above: Performed By: #### A HEATHER DECKER, CMP, GFR, CBC, ADIFF, LIP #### [address] [address] Monocyte, Absolute 0.5 10 3/mcL Normal 0.1-1.4 [facility] Comment on above: Performed By: #### A HEATHER DECKER, CMP, GFR, CBC, ADIFF, LIP #### [place] [id number] [place], [place] [address] Monocytes/100 WBC (Bld) 5.7 % Normal 2.0-13.0 [facility] Comment on above: Performed By: #### A HEATHER DECKER, CMP, GFR, CBC, ADIFF, LIP #### [place] [id number] [place], [place] [address] Neutrophils/100 WBC (Bld) 67.9 % Normal 50.0-75.0 [facility] Comment on above: Performed By: #### A HEATHER DECKER, CMP, GFR, CBC, ADIFF, LIP #### [place] [id number] [place], [place] [address] .GFRon 09-12-2024 Estimated Glomerular Filtration Rate 79 ml/min/1.73sqm Normal [facility] Comment on above: Result Comment: Stages [...] DECKER, CMP, GFR, CBC, ADIFF, LIP #### [place] [id number] [place], [place] [address] .MDWon 09-12-2024 Monocyte Distribution Width 22.39 High 0.00-20.00 [facility] Comment on above: Result Comment: For adults in ED, MDW>20.0 may be associated with a higher risk of sepsis during the first 12hrs of hospital admission Performed By: #### A HEATHER DECKER, CMP, GFR, CBC, ADIFF, LIP #### [place] [address] .NEUABSon 09-12-2024 Neutrophil, Absolute 6.3 10 3/mcL Normal 2.3-8.1 [facility] Comment on above: Performed By: #### A HEATHER DECKER, CMP, GFR, CBC, ADIFF, LIP #### [place] [address] CBCon 09-12-2024 Erythrocyte distribution width (RBC) [Ratio] 14.7 % Normal 11.5-15.5 [facility] Comment on above: Performed By: #### A HEATHER DECKER, CMP, GFR, CBC, ADIFF, LIP #### [place] [address] Hematocrit (Bld) [Volume fraction] 39.2 % Normal 34.0-46.0 [facility] Comment on above: Performed By: #### A HEATHER DECKER, CMP, GFR, CBC, ADIFF, LIP #### [place] [address] Hgb 13.2 G/dL Normal 12.0-16.0 [facility] Comment on above: Performed By: #### A HEATHER DECKER, CMP, GFR, CBC, ADIFF, LIP #### [place] [address] MCH (RBC) [Entitic mass] 28.9 pg Normal 27.0-33.0 [facility] Comment on above: Performed By: #### A HEATHER DECKER, CMP, GFR, CBC, ADIFF, LIP #### [place] [address] MCHC 33.7 G/dL Normal 32.0-36.0 [facility] Comment on above: Performed By: #### A HEATHER DECKER, CMP, GFR, CBC, ADIFF, LIP #### [place] [address] MCV (RBC) [Entitic vol] 85.9 fL Normal 80.0-99.0 [facility] Comment on above: Performed By: #### A HEATHER DECKER, CMP, GFR, CBC, ADIFF, LIP #### [address] [address] Platelet 290 10 3/mcL Normal 150-450 [facility] Comment on above: Performed By: #### A HEATHER DECKER, ELEANOR, GFR, CBC, ADIFF, LIP #### [address] [address] Platelet mean volume (Bld) [Entitic vol] 7.3 fL Normal 6.6-10.5 [facility] Comment on above: Performed By: #### A HEATHER DECKER, ELEANOR, GFR, CBC, ADIFF, LIP #### [address] [address] RBC 4.56 10 6/mcL Normal 4.10-5.30 [facility] Comment on above: Performed By: #### A HEATHER DECKER, ELEANOR, GFR, CBC, ADIFF, LIP #### [address] [address] WBC 9.2 10 3/mcL Normal 4.5-10.8 [facility] Comment on above: Performed By: #### A HEATHER DECKER, ELEANOR, GFR, CBC, ADIFF, LIP #### [address] [address] CMPon 09-12-2024 Albumin Level 4.0 G/dL Normal 3.5-5.0 [facility] Comment on above: Performed By: #### A HEATHER DECKER, ELEANOR, GFR, CBC, ADIFF, LIP #### [address] [address] Albumin/Globulin [Mass ratio] 1.0 {ratio} Low 1.1-2.5 [facility] Comment on above: Performed By: #### A HEATHER DECKER, ELEANOR, GFR, CBC, ADIFF, LIP #### [address] [address] ALP [Catalytic activity/Vol] 115 U/L Normal 40-135 [facility] Comment on above: Performed By: #### A HEATHER DECKER, ELEANOR, GFR, CBC, ADIFF, LIP #### [address] [address] ALT [Catalytic activity/Vol] 31 U/L Normal 14-59 [facility] Comment on above: Performed By: #### A HEATHER DECKER, ELEANOR, GFR, CBC, ADIFF, LIP #### [address] [address] AST [Catalytic activity/Vol] 29 U/L Normal 10-40 [facility] Comment on above: Performed By: #### A HEATHER DECKER, ELEANOR, GFR, CBC, ADIFF, LIP #### [address] [address] Bili Total 0.5 mg/dL Normal 0.2-1.0 [facility] Comment on above: Result Comment: Use of this assay is not recommended for patients undergoing treatment with eltrombopag due to the potential for falsely elevated results. Performed By: #### A HEATHER DECKER, ELEANOR, GFR, CBC, ADIFF, LIP #### [address] [address] BUN/Creatinine Ratio 26 ratio Normal 7-27 [facility] Comment on above: Performed By: #### A HEATHER DECKER, ELEANOR, GFR, CBC, ADIFF, LIP #### [address] [address] Calcium [Mass/Vol] 9.6 mg/dL Normal 8.4-10.2 [facility] Comment on above: Performed By: #### A HEATHER DECKER, ELEANOR, GFR, CBC, ADIFF, LIP #### [address] [address] Chloride [Moles/Vol] 100 mmol/L Normal 98-107 [facility] Comment on above: Performed By: #### A HEATHER DECKER, CMP, GFR, CBC, ADIFF, LIP #### [address] [address] CO2 [Moles/Vol] 26 mmol/L Normal 22-29 [facility] Comment on above: Performed By: #### A HEATHER DECKER, CMP, GFR, CBC, ADIFF, LIP #### [address] [address] Creatinine [Mass/Vol] 0.89 mg/dL Normal 0.51-0.95 [facility] Comment on above: Performed By: #### A HEATHER DECKER, ELEANOR, GFR, CBC, ADIFF, LIP #### [place] [address] Electrolyte Balance 9.0 mEq/L Normal 4.0-15.0 [facility] Comment on above: Performed By: #### A HEATHER DECKER, ELEANOR, GFR, CBC, ADIFF, LIP #### [place] [address] Globulin 4.1 G/dL Normal 2.7-4.4 [facility] Comment on above: Performed By: #### A HEATHER DECKER, ELEANOR, GFR, CBC, ADIFF, LIP #### [place] [address] Glucose [Mass/Vol] 96 mg/dL Normal 70-105 [facility] Comment on above: Performed By: #### A HEATHER DECKER, ELEANOR, GFR, CBC, ADIFF, LIP #### [address] [address] Potassium [Moles/Vol] 4.1 mmol/L Normal 3.5-5.1 [facility] Comment on above: Performed By: #### A HEATHER DECKER, ELEANOR, GFR, CBC, ADIFF, LIP #### [place] [address] Sodium [Moles/Vol] 135 mmol/L Low 136-145 [facility] Comment on above: Performed By: #### A HEATHER DECKER, CMP, GFR, CBC, ADIFF, LIP #### [facility] [place] [address] [place], [place] [address] Total Protein 8.1 G/dL Normal 6.4-8.2 [facility] Comment on above: Performed By: #### A HEATHER DECKER, CMP, GFR, CBC, ADIFF, LIP #### [facility] [place] [address] [place], [place] [address] Urea nitrogen [Mass/Vol] 23 mg/dL High 7-18 [facility] Comment on above: Performed By: #### A HEATHER DECKER, CMP, GFR, CBC, ADIFF, LIP #### [facility] [place] [address] [place], [place] [address] CT ABD/PELVIS W/ IV CONTRAST ONLYon 09-12-2024 [...] 09/12/2024 2:36:04 PM Ordering Provider: ROSA George [facility] LABORATORYOrdered By: SYSTEM SYSTEM on 09-12-2024 Albumin [...] 09-12-2024 Lipase Level 27 U/L Normal 16-77 [facility] Comment on above: Performed By: #### A JERONIMO, W, CMP, GFR, CBC, ADIFF, LIP #### [place] [address] UAon 09-12-2024 Color (U) Yellow Normal [facility] Comment on above: Performed By: #### U A #### [place] [address] Glucose (U) [Mass/Vol] Negative Normal Negative [facility] Comment on above: Performed By: #### U A #### [address] [address] Ketones Ql (U) Negative Normal Negative [facility] Comment on above: Performed By: #### U A #### [place] [address] UA Appear Clear Normal Clear [facility] Comment on above: Performed By: #### U A #### [address] [address] UA Blood Negative Normal Negative [facility] Comment on above: Performed By: #### U A #### [address] [address] UA Leuk Est Negative Normal Negative [facility] Comment on above: Performed By: #### U A #### [address] [address] UA Nitrite Negative Normal Negative [facility] Comment on above: Performed By: #### U A #### [place] [address] UA pH 6.0 Normal 5.0 - 8.0 [facility] Comment on above: Performed By: #### U A #### [place] [id number] UA Protein Negative Normal Negative [facility] Comment on above: Performed By: #### U A #### [place] [id number] UA Spec Grav <=1.005 Abnormal 1.015-1.02 5 [facility] Comment on above: Performed By: #### U A #### [place] [address] UA Specimen Type Void Normal [facility] Comment on above: Performed By: #### U A #### [place] [address] UA Urobilinogen 0.2 E.U./dL Normal 0.2-1.0 [facility] Comment on above: Performed By: #### U A #### [place] [address] Urobilinogen (U) [Mass/Vol] Negative Normal Negative [facility] Comment on above: Performed By: #### U A #### [place] [address] MA MAMMOGRAM SCREENING BILAT ERAL W/TOMOon 08-08-2024 MA MAMMOGRAM SCREENING BILATERAL W/MARCEL ORIGINAL FROM: [place] [address] PROCEDURE FOR: RAIN MURPHY [address] [place] [address] Home: PID#: [id number] Exam#: [id number] : 1975 Age: 48 TO: BERNA CALDERON [place] [address] Fax: NO FAX EXAMINATION: SCREENING DIGITAL BILATERAL [...] addition to annual mammographic screening per the [employer]. I have personally reviewed the [...] Date: 08/08/2024 3:59:31 PM Ordering Provider: BERNA HOWELL [employer]ovator: FIORDALIZA AGOSTO RT (R)(M) letter sent: Normal BI-RADS 1 and 2 Mammogram BI-RADS: 2 Benign Normal [facility] .Auto Diffon 07-11-2024 Basophil, Absolute 0.0 10 3/mcL Normal 0.0-0.2 [facility] Comment on above: Performed By: #### A JERONIMO, MDW, CMP, GFR, CBC, ADIFF, LIP #### [facility] [place] [address] [place], [place] [address] Basophils/100 WBC (Bld) 0.5 % Normal 0.0-2.5 [facility] Comment on above: Performed By: #### A HEATHER DECKER, CMP, GFR, CBC, ADIFF, LIP #### [address] [address] Eosinophil, Absolute 0.3 10 3/mcL Normal 0.0-0.7 [facility] Comment on above: Performed By: #### A HEATHER DECKER, CMP, GFR, CBC, ADIFF, LIP #### [address] [address] Eosinophils/100 WBC (Bld) 4.9 % Normal 0.0-7.0 [facility] Comment on above: Performed By: #### A HEATHER DECKER, CMP, GFR, CBC, ADIFF, LIP #### [address] [address] Lymphocyte, Absolute 1.8 10 3/mcL Normal 0.9-4.3 [facility] Comment on above: Performed By: #### A HEATHER DECKER, CMP, GFR, CBC, ADIFF, LIP #### [address] [address] Lymphocytes/100 WBC (Bld) 26.3 % Normal 20.0-40.0 [facility] Comment on above: Performed By: #### A HEATHER DECKER, CMP, GFR, CBC, ADIFF, LIP #### [address] [address] Monocyte, Absolute 0.4 10 3/mcL Normal 0.1-1.4 [facility] Comment on above: Performed By: #### A HEATHER DECKER, CMP, GFR, CBC, ADIFF, LIP #### [address] [address] Monocytes/100 WBC (Bld) 6.3 % Normal 2.0-13.0 [facility] Comment on above: Performed By: #### A HEATHER DECKER, CMP, GFR, CBC, ADIFF, LIP #### [address] [address] Neutrophils/100 WBC (Bld) 62.0 % Normal 50.0-75.0 [facility] Comment on above: Performed By: #### A HEATHER DECKER, CMP, GFR, CBC, ADIFF, LIP #### [address] [address] .GFRon 07-11-2024 Estimated Glomerular Filtration Rate 67 ml/min/1.73sqm Normal [facility] Comment on above: Result Comment: Stages [...] DECKER, CMP, GFR, CBC, ADIFF, LIP #### [address] [address] .MDWon 07-11-2024 Monocyte Distribution Width 22.46 High 0.00-20.00 [facility] Comment on above: Result Comment: For adults in ED, MDW>20.0 may be associated with a higher risk of sepsis during the first 12hrs of hospital admission Performed By: #### A HEATHER DECKER, CMP, GFR, CBC, ADIFF, LIP #### [address] [address] .NEUABSon 07-11-2024 Neutrophil, Absolute 4.2 10 3/mcL Normal 2.3-8.1 [facility] Comment on above: Performed By: #### A HEATHER DECKER, CMP, GFR, CBC, ADIFF, LIP #### [address] [address] .Urinalysis Microscopic (AO) on 07-11-2024 UA RBC 0-5 Abnormal None Seen [facility] Comment on above: Performed By: #### A HEATHER DECKER, ELEANOR, GFR, CBC, ADIFF, LIP #### [address] [address] UA Renal Epithelial Rare Abnormal [facility] Comment on above: Performed By: #### A HEATHER DECKER, CMP, GFR, CBC, ADIFF, LIP #### [address] [address] UA Squam Epithelial 0-5 Abnormal None Seen [facility] Comment on above: Performed By: #### A HEATHER DECKER, ELEANOR, GFR, CBC, ADIFF, LIP #### [address] [address] UA WBC 0-5 Abnormal None Seen [facility] Comment on above: Performed By: #### A HEATHER DECKER, ELEANOR, GFR, CBC, ADIFF, LIP #### [address] [address] CBCon 07-11-2024 Erythrocyte distribution width (RBC) [Ratio] 15.1 % Normal 11.5-15.5 [facility] Comment on above: Performed By: #### A HEATHER DECKER, ELEANOR, GFR, CBC, ADIFF, LIP #### [address] [address] Hematocrit (Bld) [Volume fraction] 41.2 % Normal 34.0-46.0 [facility] Comment on above: Performed By: #### A HEATHER DECKER, ELEANOR, GFR, CBC, ADIFF, LIP #### [address] [address] Hgb 13.6 G/dL Normal 12.0-16.0 [facility] Comment on above: Performed By: #### A HEATHER DECKER, ELEANOR, GFR, CBC, ADIFF, LIP #### [address] [address] MCH (RBC) [Entitic mass] 28.4 pg Normal 27.0-33.0 [facility] Comment on above: Performed By: #### A HEATHER DECKER, ELEANOR, GFR, CBC, ADIFF, LIP #### [address] [address] MCHC 33.1 G/dL Normal 32.0-36.0 [facility] Comment on above: Performed By: #### A HEATHER DECKER, ELEANOR, GFR, CBC, ADIFF, LIP #### [address] [address] MCV (RBC) [Entitic vol] 85.9 fL Normal 80.0-99.0 [facility] Comment on above: Performed By: #### A HEATHER DECKER, ELEANOR, GFR, CBC, ADIFF, LIP #### [address] [address] Platelet 277 10 3/mcL Normal 150-450 [facility] Comment on above: Performed By: #### A HEATHER DECKER, ELEANOR, GFR, CBC, ADIFF, LIP #### [address] [address] Platelet mean volume (Bld) [Entitic vol] 7.0 fL Normal 6.6-10.5 [facility] Comment on above: Performed By: #### A HEATHER DECKER, ELEANOR, GFR, CBC, ADIFF, LIP #### [address] [address] RBC 4.80 10 6/mcL Normal 4.10-5.30 [facility] Comment on above: Performed By: #### A HEATHER DECKER, ELEANOR, GFR, CBC, ADIFF, LIP #### [address] [address] WBC 6.8 10 3/mcL Normal 4.5-10.8 [facility] Comment on above: Performed By: #### A HEATHER DECKER, ELEANOR, GFR, CBC, ADIFF, LIP #### [address] [address] CMPon 07-11-2024 Albumin Level 3.7 G/dL Normal 3.5-5.0 [facility] Comment on above: Performed By: #### A HEATHER DECKER, ELEANOR, GFR, CBC, ADIFF, LIP #### [address] [address] Albumin/Globulin [Mass ratio] 0.9 {ratio} Low 1.1-2.5 [facility] Comment on above: Performed By: #### A HEATHER DECKER, ELEANOR, GFR, CBC, ADIFF, LIP #### [address] [address] ALP [Catalytic activity/Vol] 120 U/L Normal 40-135 [facility] Comment on above: Performed By: #### A HEATHER DECKER, ELEANOR, GFR, CBC, ADIFF, LIP #### [address] [address] ALT [Catalytic activity/Vol] 26 U/L Normal 14-59 [facility] Comment on above: Performed By: #### A HEATHER DECKER, ELEANOR, GFR, CBC, ADIFF, LIP #### [address] [address] AST [Catalytic activity/Vol] 23 U/L Normal 10-40 [facility] Comment on above: Performed By: #### A HEATHER DECKER, ELEANOR, GFR, CBC, ADIFF, LIP #### [address] [address] Bili Total 0.6 mg/dL Normal 0.2-1.0 [facility] Comment on above: Result Comment: Use of this assay is not recommended for patients undergoing treatment with eltrombopag due to the potential for falsely elevated results. Performed By: #### A HEATHER DECKER, ELEANOR, GFR, CBC, ADIFF, LIP #### [address] [address] BUN/Creatinine Ratio 17 ratio Normal 7-27 [facility] Comment on above: Performed By: #### A HEATHER DECKER, ELEANOR, GFR, CBC, ADIFF, LIP #### [address] [address] Calcium [Mass/Vol] 9.4 mg/dL Normal 8.4-10.2 [facility] Comment on above: Performed By: #### A HEATHER DECKER, CMP, GFR, CBC, ADIFF, LIP #### [address] [address] Chloride [Moles/Vol] 103 mmol/L Normal 98-107 [facility] Comment on above: Performed By: #### A HEATHER DECKER, CMP, GFR, CBC, ADIFF, LIP #### [address] [address] CO2 [Moles/Vol] 33 mmol/L High 22-29 [facility] Comment on above: Performed By: #### A HEATHER DECKER, ELEANOR, GFR, CBC, ADIFF, LIP #### [place] [address] Creatinine [Mass/Vol] 1.02 mg/dL Normal 0.55-1.02 [facility] Comment on above: Result Comment: Test ing performed on Siemens Dimension EXL analyzer using a modified kinetic Oralia technique. Performed By: #### A HEATHER DECKER, ELEANOR, GFR, CBC, ADIFF, LIP #### [address] [address] Electrolyte Balance 5.0 mEq/L Normal 4.0-15.0 [facility] Comment on above: Performed By: #### A HEATHER DECKER, ELEANOR, GFR, CBC, ADIFF, LIP #### [address] [address] Globulin 3.9 G/dL High 1.5-3.8 [facility] Comment on above: Performed By: #### A HEATHER DECKER, ELEANOR, GFR, CBC, ADIFF, LIP #### [address] [address] Glucose [Mass/Vol] 94 mg/dL Normal 70-105 [facility] Comment on above: Performed By: #### A JERONIMO, MDW, CMP, GFR, CBC, ADIFF, LIP #### [id number] [place], [place] [address] Potassium [Moles/Vol] 4.2 mmol/L Normal 3.5-5.1 [facility] Comment on above: Performed By: #### A HEATHER DECKER, CMP, GFR, CBC, ADIFF, LIP #### [id number] [place], [place] [address] Sodium [Moles/Vol] 141 mmol/L Normal 136-145 [facility] Comment on above: Performed By: #### A HEATHER DECKER, CMP, GFR, CBC, ADIFF, LIP #### [address] [address] Total Protein 7.6 G/dL Normal 6.4-8.2 [facility] Comment on above: Performed By: #### A HEATHER DECKER, ELEANOR, GFR, CBC, ADIFF, LIP #### [id number] [place], [place] [address] Urea nitrogen [Mass/Vol] 17 mg/dL Normal 7-18 [facility] Comment on above: Performed By: #### A HEATHER DECKER, ELEANOR, GFR, CBC, ADIFF, LIP #### [address] [address] CNOVon 07-11-2024 CNOV Office Visit ([facility] ) RAIN MURPHY ([id number]) 1975 F Date Time Provider Department 07/11/24 11:20 AM [facility], we recorded the following information about you: Temperature Pulse Respiration Blood pressure 98.2 degrees 59/minute 20/minute 121/76 Weight 150.9 kg Evans Nolan MD 07/11/2024 12:29 PM Signed [facility] Murphy is a 48 [...] hematuria. She has been referred to a optical glass etcher for dyspnea on exertion. Prior colon evaluations [...] care at [facility] [place] and will go to the ER therefore further evaluation. 3. MUNOZ (dyspnea on exertion) - ICD9: 786.09, ICD10: R06.09 4. Hypoxia - ICD9: 799.02, ICD10: R09.02 Pulse ox confirmed ranging between 91-93 at rest. She denies any past history of hypoxia or asthma. Low suspicion for pneumonia without cough or cold symptoms. Further evaluation for CHF at the ER. Evans Nolan MD History and Record Review Systemic symptoms present included: Chills Differential Diagnoses - Diverticulitis - Infectious gastroenteritis - Hypoxia and abnormal breath sounds; rule out CHF Disposition The patient was other (comment) (Referred to [facility] [place] ER). Procedures Allergies As of Date: 07/11/2024 [...] hydrocortisone (HEM (more content not included)... Normal [facility] CT ABD/PELVIS W/ IV CONTRAST ONLYon 07-11-2024 [...] By: Grace Rivero MD Electronically signed By Grcae Rivero MD Dictated Date: 07/11/2024 1:33:03 PM Prelim Date: 07/11/2024 1:34:56 PM Sign Date: 07/11/2024 1:34:56 PM Ordering Provider: SUZETTE PEREZ Normal [facility] LIPon 07-11-2024 Lipase Level 24 U/L Normal 16-77 [facility] Comment on above: Performed By: #### A MD JERONIMOW, CMP, GFR, CBC, ADIFF, LIP #### [facility] [place] [address] [place], [place] [address] UAon 07-11-2024 Color (U) Yellow Normal [facility] Comment on above: Performed By: #### A HEATHER DECKER, CMP, GFR, CBC, ADIFF, LIP #### [place] [address] Glucose (U) [Mass/Vol] Negative Normal Negative [facility] Comment on above: Performed By: #### A HEATHER DECKER, ELEANOR, GFR, CBC, ADIFF, LIP #### [place] [id number] Ketones Ql (U) Negative Normal Negative [facility] Comment on above: Performed By: #### A HEATHER DECKER, ELEANOR, GFR, CBC, ADIFF, LIP #### [place] [address] UA Appear Clear Normal Clear [facility] Comment on above: Performed By: #### A HEATHER DECKER, ELEANOR, GFR, CBC, ADIFF, LIP #### [place] [address] UA Blood Negative Normal Negative [facility] Comment on above: Performed By: #### A HEATHER DECKER, ELEANOR, GFR, CBC, ADIFF, LIP #### [place] [id number] UA Leuk Est Trace Abnormal Negative [facility] Comment on above: Performed By: #### A HEATHER DECKER, CMP, GFR, CBC, ADIFF, LIP #### [place] [address] UA Nitrite Negative Normal Negative [facility] Comment on above: Performed By: #### A HEATHER DECKER, CMP, GFR, CBC, ADIFF, LIP #### [place] [address] UA pH 7.0 Normal 5.0 - 8.0 [facility] Comment on above: Performed By: #### A HEATHER DECKER, CMP, GFR, CBC, ADIFF, LIP #### [place] [address] UA Protein Negative Normal Negative [facility] Comment on above: Performed By: #### A HEATHER DECKER, ELEANOR, GFR, CBC, ADIFF, LIP #### [address] [address] UA Spec Grav 1.025 Normal 1.015-1.02 5 [facility] Comment on above: Performed By: #### A HEATHER DECKER, ELEANOR, GFR, CBC, ADIFF, LIP #### [address] [address] UA Specimen Type Clean Catch Normal [facility] Comment on above: Performed By: #### A HEATHER DECKER, ELEANOR, GFR, CBC, ADIFF, LIP #### [place] [address] UA Urobilinogen 0.2 E.U./dL Normal 0.2-1.0 [facility] Comment on above: Performed By: #### A HEATHER DECKER, ELEANOR, GFR, CBC, ADIFF, LIP #### [place] [address] Urobilinogen (U) [Mass/Vol] Negative Normal Negative [facility] Comment on above: Performed By: #### A HEATHER DECKER, ELEANOR, GFR, CBC, ADIFF, LIP #### [address] [address] .Auto Diffon 02-17-2024 Basophil, Absolute 0.1 10 3/mcL Normal 0.0-0.2 [facility] Comment on above: Performed By: #### A HEATHER DECKER, ELEANOR, GFR, CBC, ADIFF, LIP #### [address] [address] Basophils/100 WBC (Bld) 0.8 % Normal 0.0-2.5 [facility] Comment on above: Performed By: #### A HEATHER DECKER, ELEANOR, GFR, CBC, ADIFF, LIP #### [address] [address] Eosinophil, Absolute 0.4 10 3/mcL Normal 0.0-0.7 [facility] Comment on above: Performed By: #### A HEATHER DECKER, CMP, GFR, CBC, ADIFF, LIP #### [address] [address] Eosinophils/100 WBC (Bld) 5.4 % Normal 0.0-7.0 [facility] Comment on above: Performed By: #### A HEATHER DECKER, CMP, GFR, CBC, ADIFF, LIP #### [address] [address] Lymphocyte, Absolute 1.5 10 3/mcL Normal 0.9-4.3 [facility] Comment on above: Performed By: #### A HEATHER DECKER, CMP, GFR, CBC, ADIFF, LIP #### [address] [address] Lymphocytes/100 WBC (Bld) 21.8 % Normal 20.0-40.0 [facility] Comment on above: Performed By: #### A HEATHER DECKER, CMP, GFR, CBC, ADIFF, LIP #### [address] [address] Monocyte, Absolute 0.3 10 3/mcL Normal 0.1-1.4 [facility] Comment on above: Performed By: #### A HEATHER DECKER, CMP, GFR, CBC, ADIFF, LIP #### [address] [address] Monocytes/100 WBC (Bld) 3.9 % Normal 2.0-13.0 [facility] Comment on above: Performed By: #### A HEATHER DECEKR, CMP, GFR, CBC, ADIFF, LIP #### [address] [address] Neutrophils/100 WBC (Bld) 68.1 % Normal 50.0-75.0 [facility] Comment on above: Performed By: #### A HEATHER DECKER, CMP, GFR, CBC, ADIFF, LIP #### [address] [address] .GFRon 02-17-2024 GFR 75 ml/min/1.73sqm Normal [facility] Comment on above: Result Comment: GFR [...] DECKER, CMP, GFR, CBC, ADIFF, LIP #### [address] [address] GFR Non- 62 ml/min/1.73sqm Normal [facility] Comment on above: Result Comment: GFR [...] DECKER, ELEANOR, GFR, CBC, ADIFF, LIP #### [address] [address] .NEUABSon 02-17-2024 Neutrophil, Absolute 4.6 10 3/mcL Normal 2.3-8.1 [facility] Comment on above: Performed By: #### A HEATHER DECKER, CMP, GFR, CBC, ADIFF, LIP #### [address] [address] CBCon 02-17-2024 Erythrocyte distribution width (RBC) [Ratio] 17.1 % High 11.5-15.5 [facility] Comment on above: Performed By: #### A HEATHER DECKER, ELEANOR, GFR, CBC, ADIFF, LIP #### [address] [address] Hematocrit (Bld) [Volume fraction] 37.1 % Normal 34.0-46.0 [facility] Comment on above: Performed By: #### A HEATHER DECKER, LEEANOR, GFR, CBC, ADIFF, LIP #### [place] [phone] Hgb 12.3 G/dL Normal 12.0-16.0 [facility] Comment on above: Performed By: #### A HEATHER DECKER, ELEANOR, GFR, CBC, ADIFF, LIP #### [address] [address] MCH (RBC) [Entitic mass] 28.3 pg Normal 27.0-33.0 [facility] Comment on above: Performed By: #### A HEATHER DECKER, ELEANOR, GFR, CBC, ADIFF, LIP #### [address] [address] MCHC 33.1 G/dL Normal 32.0-36.0 [facility] Comment on above: Performed By: #### A HEATHER DECKER, ELEANOR, GFR, CBC, ADIFF, LIP #### [address] [address] MCV (RBC) [Entitic vol] 85.6 fL Normal 80.0-99.0 [facility] Comment on above: Performed By: #### A HEATHER DECKER, ELEANOR, GFR, CBC, ADIFF, LIP #### [address] [address] Platelet 230 10 3/mcL Normal 150-450 [facility] Comment on above: Performed By: #### A HEATHER DECKER, ELEANOR, GFR, CBC, ADIFF, LIP #### [address] [address] Platelet mean volume (Bld) [Entitic vol] 7.8 fL Normal 6.6-10.5 [facility] Comment on above: Performed By: #### A HEATHER DECKER, ELEANOR, GFR, CBC, ADIFF, LIP #### [address] [address] RBC 4.34 10 6/mcL Normal 4.10-5.30 [facility] Comment on above: Performed By: #### A HEATHER DECKER, ELEANOR, GFR, CBC, ADIFF, LIP #### [address] [address] WBC 6.7 10 3/mcL Normal 4.5-10.8 [facility] Comment on above: Performed By: #### A HEATHER DECKER, ELEANOR, GFR, CBC, ADIFF, LIP #### [address] [address] CMPon 02-17-2024 Albumin Level 3.5 G/dL Normal 3.5-5.0 [facility] Comment on above: Performed By: #### A HEATHER DECKER, ELEANOR, GFR, CBC, ADIFF, LIP #### [address] [address] Albumin/Globulin [Mass ratio] 1.1 {ratio} Normal 1.1-2.5 [facility] Comment on above: Performed By: #### A HEATHER DECKER, ELEANOR, GFR, CBC, ADIFF, LIP #### [address] [address] ALP [Catalytic activity/Vol] 122 U/L Normal 40-135 [facility] Comment on above: Performed By: #### A HEATHER DECKER, ELEANOR, GFR, CBC, ADIFF, LIP #### [address] [address] ALT [Catalytic activity/Vol] 35 U/L Normal 14-59 [facility] Comment on above: Performed By: #### A HEATHER DECKER, CMP, GFR, CBC, ADIFF, LIP #### [address] [address] AST [Catalytic activity/Vol] 27 U/L Normal 10-40 [facility] Comment on above: Performed By: #### A HEATHER DECKER, CMP, GFR, CBC, ADIFF, LIP #### [address] [address] Bili Total 0.4 mg/dL Normal 0.2-1.0 [facility] Comment on above: Result Comment: Use of this assay is not recommended for patients undergoing treatment with eltrombopag due to the potential for falsely elevated results. Performed By: #### A HEATHER DECKER, CMP, GFR, CBC, ADIFF, LIP #### [address] [address] BUN/Creatinine Ratio 12 ratio Normal 7-27 [facility] Comment on above: Performed By: #### A HEATHER DECKER, ELEANOR, GFR, CBC, ADIFF, LIP #### [address] [address] Calcium [Mass/Vol] 8.8 mg/dL Normal 8.4-10.2 [facility] Comment on above: Performed By: #### A HEATHER DECKER, ELEANOR, GFR, CBC, ADIFF, LIP #### [address] [address] Chloride [Moles/Vol] 105 mmol/L Normal 98-107 [facility] Comment on above: Performed By: #### A HEATHER DECKER, ELEANOR, GFR, CBC, ADIFF, LIP #### [address] [address] CO2 [Moles/Vol] 33 mmol/L High 22-29 [facility] Comment on above: Performed By: #### A HEATHER DECKER, ELEANOR, GFR, CBC, ADIFF, LIP #### [address] [address] Creatinine [Mass/Vol] 0.96 mg/dL Normal 0.55-1.02 [facility] Comment on above: Result Comment: Test ing performed on Siemens Dimension EXL analyzer using a modified kinetic Oralia technique. Performed By: #### A HEATHER DECKER, ELEANOR, GFR, CBC, ADIFF, LIP #### [address] [address] Electrolyte Balance 4.0 mEq/L Normal 4.0-15.0 [facility] Comment on above: Performed By: #### A HEATHER DECKER, ELEANOR, GFR, CBC, ADIFF, LIP #### [address] [address] Globulin 3.3 G/dL Normal [facility] Comment on above: Performed By: #### A HEATHER DECKER, ELEANOR, GFR, CBC, ADIFF, LIP #### [address] [address] Glucose [Mass/Vol] 103 mg/dL Normal 70-105 [facility] Comment on above: Performed By: #### A HEATHER DECKER, ELEANOR, GFR, CBC, ADIFF, LIP #### [address] [address] Potassium [Moles/Vol] 4.3 mmol/L Normal 3.5-5.1 [facility] Comment on above: Performed By: #### A HEATHER DECKER, ELEANOR, GFR, CBC, ADIFF, LIP #### [address] [address] Sodium [Moles/Vol] 142 mmol/L Normal 136-145 [facility] Comment on above: Performed By: #### A HEATHER DECKER, ELEANOR, GFR, CBC, ADIFF, LIP #### [address] [address] Total Protein 6.8 G/dL Normal 6.4-8.2 [facility] Comment on above: Performed By: #### A HEATHER DECKER, ELEANOR, GFR, CBC, ADIFF, LIP #### [address] [address] Urea nitrogen [Mass/Vol] 12 mg/dL Normal 7-18 [facility] Comment on above: Performed By: #### A HEATHER DECKER, CMP, GFR, CBC, ADIFF, LIP #### [address] [address] DIMERon 02-17-2024 D-Dimer 3269 ng/mL D-DU High 0-230 [facility] Comment on above: Result Comment: Resu [...] (PE). Performed By: #### A HEATHER DECKER, ELEANOR, GFR, CBC, ADIFF, LIP #### [address] [address] FEon 02-17-2024 Iron [Mass/Vol] 93 ug/dL Normal 50-170 [facility] Comment on above: Performed By: #### A HEATHER DECKER, CMP, GFR, CBC, ADIFF, LIP #### [address] [address] Sal 02-17-2024 Ferritin [Mass/Vol] 43.0 ng/mL Normal 8.0-252.0 [facility] Comment on above: Performed By: #### A HEATHER DECKER, CMP, GFR, CBC, ADIFF, LIP #### [place] [address] LABORATORYOrdered By: SYSTEM SYSTEM on 02-17-2024 Albumin [...] 02-17-2024 Cholesterol [Mass/Vol] 224 mg/dL High 0-200 [facility] Comment on above: Result Comment: Chol esterol Reference Interval: Less than 200 Desirable 200-239 Borderline high risk 240 and above High risk Performed By: #### A JERONIMO, MDW, CMP, GFR, CBC, ADIFF, LIP #### [place] [id number] [place], [place] [address] Cholesterol in HDL [Mass/Vol] 46 mg/dL Normal 40-60 [facility] Comment on above: Performed By: #### A HEATHER DECKER, CMP, GFR, CBC, ADIFF, LIP #### [address] [address] Cholesterol in LDL [Mass/Vol] 145 mg/dL High 0-130 [facility] Comment on above: Performed By: #### A HEATHER DECKER, CMP, GFR, CBC, ADIFF, LIP #### [address] [address] Triglyceride [Mass/Vol] 165 mg/dL High 0-150 [facility] Comment on above: Result Comment: Trig lyceride Reference Interval: Less than 150 Normal 150-199 Borderline high risk 200-499 High risk 500 or higher Very high risk Performed By: #### A HEATHER DECKER, CMP, GFR, CBC, ADIFF, LIP #### [address] [address] .Auto Diffon 11-10-2023 Basophil, Absolute 0.0 10 3/mcL Normal 0.0-0.2 [facility] ([place]) Comment on above: Performed By: #### A DIFF, FE, DIMER, FERR, ANEU, CBC #### [address] [address] Basophils/100 WBC (Bld) 0.6 % Normal 0.0-2.5 [facility] ([place]) Comment on above: Performed By: #### A DIFF, FE, DIMER, FERR, ANEU, CBC #### [address] [address] Eosinophil, Absolute 0.3 10 3/mcL Normal 0.0-0.4 [facility] ([place]) Comment on above: Performed By: #### A DIFF, FE, DIMER, FERR, ANEU, CBC #### [address] [address] Eosinophils/100 WBC (Bld) 3.7 % Normal 0.0-7.0 [facility] ([place]) Comment on above: Performed By: #### A DIFF, FE, DIMER, FERR, ANEU, CBC #### [address] [address] Lymphocyte, Absolute 1.5 10 3/mcL Normal 0.8-3.9 [facility] ([place]) Comment on above: Performed By: #### A DIFF, FE, DIMER, FERR, ANEU, CBC #### [address] [address] Lymphocytes/100 WBC (Bld) 18.8 % Normal 10.0-50.0 [facility] ([place]) Comment on above: Performed By: #### A DIFF, FE, DIMER, FERR, ANEU, CBC #### [address] [address] Monocyte, Absolute 0.4 10 3/mcL Normal 0.2-1.0 [facility] ([place]) Comment on above: Performed By: #### A DIFF, FE, DIMER, FERR, ANEU, CBC #### [address] [address] Monocytes/100 WBC (Bld) 5.2 % Normal 1.7-13.0 [facility] ([place]) Comment on above: Performed By: #### A DIFF, FE, DIMER, FERR, ANEU, CBC #### [address] [address] Neutrophils/100 WBC (Bld) 71.7 % Normal 37.0-80.0 [facility] ([place]) Comment on above: Performed By: #### A DIFF, FE, DIMER, FERR, ANEU, CBC #### [address] [address] .NEUABSon 11-10-2023 Neutrophil, Absolute 5.7 10 3/mcL Normal 2.9-6.2 [facility] ([place]) Comment on above: Performed By: #### A DIFF, FE, DIMER, FERR, ANEU, CBC #### [address] [address] CBCon 11-10-2023 Erythrocyte distribution width (RBC) [Ratio] 21.2 % High 11.5-14.5 [facility] ([place]) Comment on above: Performed By: #### A DIFF, FE, DIMER, FERR, ANEU, CBC #### [address] [address] Hematocrit (Bld) [Volume fraction] 34.1 % Low 37.0-47.0 [facility] ([place]) Comment on above: Performed By: #### A DIFF, FE, DIMER, FERR, ANEU, CBC #### [address] [address] Hgb 10.9 G/dL Low 12.0-16.0 [facility] ([place]) Comment on above: Performed By: #### A DIFF, FE, DIMER, FERR, ANEU, CBC #### [address] [address] MCH (RBC) [Entitic mass] 22.7 pg Low 27.0-31.2 [facility] ([place]) Comment on above: Performed By: #### A DIFF, FE, DIMER, FERR, ANEU, CBC #### [address] [address] MCHC 32.0 G/dL Low 33.0-37.0 [facility] ([place]) Comment on above: Performed By: #### A DIFF, FE, DIMER, FERR, ANEU, CBC #### [address] [address] MCV (RBC) [Entitic vol] 70.9 fL Low 80.0-94.0 [facility] ([place]) Comment on above: Performed By: #### A DIFF, FE, DIMER, FERR, ANEU, CBC #### [address] [address] Platelet 323 10 3/mcL Normal 130-400 [facility] ([place]) Comment on above: Performed By: #### A DIFF, FE, DIMER, FERR, ANEU, CBC #### [address] [address] Platelet mean volume (Bld) [Entitic vol] 7.1 fL Low 7.4-10.4 [facility] ([place]) Comment on above: Performed By: #### A DIFF, FE, DIMER, FERR, ANEU, CBC #### [address] [address] RBC 4.81 10 6/mcL Normal 4.20-5.40 [facility] ([place]) Comment on above: Performed By: #### A DIFF, FE, DIMER, FERR, ANEU, CBC #### [address] [address] WBC 7.9 10 3/mcL Normal 4.6-10.8 [facility] ([place]) Comment on above: Performed By: #### A DIFF, FE, DIMER, FERR, ANEU, CBC #### [address] [address] DIMERon 11-10-2023 D-Dimer 4160 ng/mL D-DU High 0-230 [facility] ([place]) Comment on above: Result Comment: Resu lts [...] DIFF, FE, DIMER, FERR, ANEU, CBC #### [address] [address] FEon 11-10-2023 Iron [Mass/Vol] 35 ug/dL Low 50-170 [facility] ([place]) Comment on above: Performed By: #### A DIFF, FE, DIMER, FERR, ANEU, CBC #### [address] [address] Sal 11-10-2023 Ferritin [Mass/Vol] 253.0 ng/mL High 8.0-252.0 [facility] ([place]) Comment on above: Performed By: #### A DIFF, FE, DIMER, FERR, ANEU, CBC #### [address] [address] RETO (AO)on 11-10-2023 Immature Retic Fraction 0.51 IRF High 0.20-0.46 [facility] ([place]) Comment on above: Performed By: #### A DIFF, FE, DIMER, FERR, ANEU, CBC #### [address] [address] Reticulocytes, Auto 2.2 % Normal 0.2-2.3 [facility] ([place]) Comment on above: Performed By: #### A DIFF, FE, DIMER, FERR, ANEU, CBC #### [address] [address] .Auto Diffon 10-28-2023 Basophil, Absolute 0.0 10 3/mcL Normal 0.0-0.2 [facility] ([place]) Comment on above: Performed By: #### A DIFF, FE, DIMER, FERR, ANEU, CBC #### [address] [address] Basophils/100 WBC (Bld) 0.5 % Normal 0.0-2.5 [facility] ([place]) Comment on above: Performed By: #### A DIFF, FE, DIMER, FERR, ANEU, CBC #### [address] [address] Eosinophil, Absolute 0.3 10 3/mcL Normal 0.0-0.4 [facility] ([place]) Comment on above: Performed By: #### A DIFF, FE, DIMER, FERR, ANEU, CBC #### [address] [address] Eosinophils/100 WBC (Bld) 3.5 % Normal 0.0-7.0 [facility] ([place]) Comment on above: Performed By: #### A DIFF, FE, DIMER, FERR, ANEU, CBC #### [address] [address] Lymphocyte, Absolute 1.7 10 3/mcL Normal 0.8-3.9 [facility] ([place]) Comment on above: Performed By: #### A DIFF, FE, DIMER, FERR, ANEU, CBC #### [address] [address] Lymphocytes/100 WBC (Bld) 20.2 % Normal 10.0-50.0 [facility] ([place]) Comment on above: Performed By: #### A DIFF, FE, DIMER, FERR, ANEU, CBC #### [address] [address] Monocyte, Absolute 0.6 10 3/mcL Normal 0.2-1.0 [facility] ([place]) Comment on above: Performed By: #### A DIFF, FE, DIMER, FERR, ANEU, CBC #### [address] [address] Monocytes/100 WBC (Bld) 6.9 % Normal 1.7-13.0 [facility] ([place]) Comment on above: Performed By: #### A DIFF, FE, DIMER, FERR, ANEU, CBC #### [address] [address] Neutrophils/100 WBC (Bld) 68.9 % Normal 37.0-80.0 [facility] ([place]) Comment on above: Performed By: #### A DIFF, FE, DIMER, FERR, ANEU, CBC #### [address] [address] .GFRon 10-28-2023 GFR Non- 64 ml/min/1.73sqm Normal [facility] ([place]) Comment on above: Result Comment: GFR Population [...] DIFF, FE, DIMER, FERR, ANEU, CBC #### [address] [address] GFR 78 ml/min/1.73sqm Normal [facility] ([place]) Comment on above: Result Comment: GFR Population [...] DIFF, FE, DIMER, FERR, ANEU, CBC #### [address] [address] .MDWon 10-28-2023 Monocyte Distribution Width 20.70 High 0.00-20.00 [facility] ([place]) Comment on above: Result Comment: For adults in ED, MDW>20.0 may be associated with a higher risk of sepsis during the first 12hrs of hospital admission Performed By: #### A DIFF, FE, DIMER, FERR, ANEU, CBC #### [address] [address] .NEUABSon 10-28-2023 Neutrophil, Absolute 5.9 10 3/mcL Normal 2.9-6.2 [facility] ([place]) Comment on above: Performed By: #### A DIFF, FE, DIMER, FERR, ANEU, CBC #### [address] [address] BMPon 10-28-2023 BUN/Creatinine Ratio 26 ratio Normal 7-27 [facility] ([place]) Comment on above: Performed By: #### A DIFF, FE, DIMER, FERR, ANEU, CBC #### [place] [id number] Calcium [Mass/Vol] 9.1 mg/dL Normal 8.4-10.2 [facility] ([place]) Comment on above: Performed By: #### A DIFF, FE, DIMER, FERR, ANEU, CBC #### [place] [address] Chloride [Moles/Vol] 100 mmol/L Normal 98-107 [facility]) Comment on above: Performed By: #### A DIFF, FE, DIMER, FERR, ANEU, CBC #### [place] [address] CO2 [Moles/Vol] 27 mmol/L Normal 22-29 [facility] ([place]) Comment on above: Performed By: #### A DIFF, FE, DIMER, FERR, ANEU, CBC #### [place] [address] Creatinine [Mass/Vol] 0.93 mg/dL Normal 0.55-1.02 [facility] ([place]) Comment on above: Performed By: #### A DIFF, FE, DIMER, FERR, ANEU, CBC #### [place] [id number] Electrolyte Balance 10.0 mEq/L Normal 4.0-15.0 [facility] ([place]) Comment on above: Performed By: #### A DIFF, FE, DIMER, FERR, ANEU, CBC #### [place] [address] Glucose [Mass/Vol] 111 mg/dL High 70-105 [facility] ([place]) Comment on above: Performed By: #### A DIFF, FE, DIMER, FERR, ANEU, CBC #### [address] [address] Potassium [Moles/Vol] 4.1 mmol/L Normal 3.5-5.1 [facility] ([place]) Comment on above: Performed By: #### A DIFF, FE, DIMER, FERR, ANEU, CBC #### [place] [phone] Sodium [Moles/Vol] 137 mmol/L Normal 136-145 [facility] ([place]) Comment on above: Performed By: #### A DIFF, FE, DIMER, FERR, ANEU, CBC #### [place] [address] Urea nitrogen [Mass/Vol] 24 mg/dL High 7-18 [facility] ([place]) Comment on above: Performed By: #### A DIFF, FE, DIMER, FERR, ANEU, CBC #### [place] [address] CBCon 10-28-2023 Erythrocyte distribution width (RBC) [Ratio] 19.3 % High 11.5-14.5 [facility] ([place]) Comment on above: Performed By: #### A DIFF, FE, DIMER, FERR, ANEU, CBC #### [place] [id number] Hematocrit (Bld) [Volume fraction] 33.4 % Low 37.0-47.0 [facility] ([place]) Comment on above: Performed By: #### A DIFF, FE, DIMER, FERR, ANEU, CBC #### [place] [id number] Hgb 10.6 G/dL Low 12.0-16.0 [facility] ([place]) Comment on above: Performed By: #### A DIFF, FE, DIMER, FERR, ANEU, CBC #### [place] [id number] MCH (RBC) [Entitic mass] 22.2 pg Low 27.0-31.2 [facility] ([place]) Comment on above: Performed By: #### A DIFF, FE, DIMER, FERR, ANEU, CBC #### [address] [address] MCHC 31.6 G/dL Low 33.0-37.0 [facility] ([place]) Comment on above: Performed By: #### A DIFF, FE, DIMER, FERR, ANEU, CBC #### [address] [address] MCV (RBC) [Entitic vol] 70.4 fL Low 80.0-94.0 [facility] ([place]) Comment on above: Performed By: #### A DIFF, FE, DIMER, FERR, ANEU, CBC #### [address] [address] Platelet 367 10 3/mcL Normal 130-400 [facility] ([place]) Comment on above: Performed By: #### A DIFF, FE, DIMER, FERR, ANEU, CBC #### [address] [address] Platelet mean volume (Bld) [Entitic vol] 7.2 fL Low 7.4-10.4 [facility] [facility] ([place]) Comment on above: Performed By: #### A DIFF, FE, DIMER, FERR, ANEU, CBC #### [address] [address] RBC 4.74 10 6/mcL Normal 4.20-5.40 [facility] ([place]) Comment on above: Performed By: #### A DIFF, FE, DIMER, FERR, ANEU, CBC #### [address] [address] WBC 8.5 10 3/mcL Normal 4.6-10.8 [facility] ([place]) Comment on above: Performed By: #### A DIFF, FE, DIMER, FERR, ANEU, CBC #### [address] [address] [address] ANGIOGRAPHY CHEST W/CONTR Suki 10-28-2023 CT [...] 10/28/2023 10:48:13 AM Ordering Provider: ROMAINE George [facility] ([place]) LABORATORYOrdered By: SYSTEM SYSTEM on 10-28-2023 Basophil, [...] a homogeneous sandwich chemiluminescent immunoassay based on CasterStats technology. Urea nitrogen [Mass/Vol] 24 mg/dL High 7 - 18 mg/dL AO ADM SS Urea nitrogen/Creatinine [Mass ratio] 26 ratio Normal 7 - 27 ratio AO ADM SS WBC (Bld) [#/Vol] 8.5 103/mcL Normal 4.6 - 10.8 10^3/mcL AO Workflow SS PBNPon 10-28-2023 Natriuretic peptide B (Bld) [Mass/Vol] 64 pg/mL Normal 0-125 [facility] ([place]) Comment on above: Result Comment: NT-p roBNP results of less than 300 pg/mL effectively rules out acute congestive heart failure with 99% negative predictive value. Performed By: #### A DIFF, FE, DIMER, FERR, ANEU, CBC #### [place] [id number] TROPHSon 10-28-2023 High Sensitivity Troponin I <4 Normal 0-51 [facility] ([place]) Comment on above: Result Comment: High Sensitive Troponin I Reference Ranges: Female: 0-51 ng/L Male: 0-76 ng/L Testing performed on [place] [facility] using a homogeneous sandwich chemiluminescent immunoassay based on CasterStats technology. Performed By: #### A DIFF, FE, DIMER, FERR, ANEU, CBC #### [address] [address] .Auto Diffon 10-27-2023 Basophil, Absolute 0.1 10 3/mcL Normal 0.0-0.2 [facility] ([place]) Comment on above: Performed By: #### V IDH, ANEU, DIMER, CBC, GFR, CMP, FT4, TSH, FERR, ADIFF #### [place] [address] Basophils/100 WBC (Bld) 0.7 % Normal 0.0-2.5 [facility] ([place]) Comment on above: Performed By: #### V IDH, ANEU, DIMER, CBC, GFR, CMP, FT4, TSH, FERR, ADIFF #### [address] [address] Eosinophil, Absolute 0.3 10 3/mcL Normal 0.0-0.4 [facility] ([place]) Comment on above: Performed By: #### V IDH, ANEU, DIMER, CBC, GFR, CMP, FT4, TSH, FERR, ADIFF #### [address] [address] Eosinophils/100 WBC (Bld) 3.5 % Normal 0.0-7.0 [facility] ([place]) Comment on above: Performed By: #### V IDH, ANEU, DIMER, CBC, GFR, CMP, FT4, TSH, FERR, ADIFF #### [address] [address] Lymphocyte, Absolute 1.7 10 3/mcL Normal 0.8-3.9 [facility] ([place]) Comment on above: Performed By: #### V IDH, ANEU, DIMER, CBC, GFR, CMP, FT4, TSH, FERR, ADIFF #### [address] [address] Lymphocytes/100 WBC (Bld) 19.4 % Normal 10.0-50.0 [facility] ([place]) Comment on above: Performed By: #### V IDH, ANEU, DIMER, CBC, GFR, CMP, FT4, TSH, FERR, ADIFF #### [address] [address] Monocyte, Absolute 0.6 10 3/mcL Normal 0.2-1.0 [facility] ([place]) Comment on above: Performed By: #### V IDH, ANEU, DIMER, CBC, GFR, CMP, FT4, TSH, FERR, ADIFF #### [address] [address] Monocytes/100 WBC (Bld) 6.5 % Normal 1.7-13.0 [facility] ([place] Comment on above: Performed By: #### V IDH, ANEU, DIMER, CBC, GFR, CMP, FT4, TSH, FERR, ADIFF #### [address] [address] Neutrophils/100 WBC (Bld) 69.9 % Normal 37.0-80.0 [facility] ([place] Comment on above: Performed By: #### V IDH, ANEU, DIMER, CBC, GFR, CMP, FT4, TSH, FERR, ADIFF #### [address] [address] .GFRon 10-27-2023 GFR 85 ml/min/1.73sqm Normal [facility] ([place]) Comment on above: Result Comment: GFR Population [...] DIFF, FE, DIMER, FERR, ANEU, CBC #### [address] [address] GFR Non- 70 ml/min/1.73sqm Normal [facility] ([place]) Comment on above: Result Comment: GFR Population [...] DIFF, FE, DIMER, FERR, ANEU, CBC #### [address] [address] .NEUABSon 10-27-2023 Neutrophil, Absolute 6.1 10 3/mcL Normal 2.9-6.2 [facility] ([place]) Comment on above: Performed By: #### A DIFF, FE, DIMER, FERR, ANEU, CBC #### [place] [address] CBCon 10-27-2023 Erythrocyte distribution width (RBC) [Ratio] 19.3 % High 11.5-14.5 [facility] ([place]) Comment on above: Performed By: #### V IDH, ANEU, DIMER, CBC, GFR, CMP, FT4, TSH, FERR, ADIFF #### [place] [address] Hematocrit (Bld) [Volume fraction] 34.6 % Low 37.0-47.0 [facility] ([place] Comment on above: Performed By: #### V IDH, ANEU, DIMER, CBC, GFR, CMP, FT4, TSH, FERR, ADIFF #### [place] [address] Hgb 10.7 G/dL Low 12.0-16.0 [facility] ([place] Comment on above: Performed By: #### V IDH, ANEU, DIMER, CBC, GFR, CMP, FT4, TSH, FERR, ADIFF #### [place] [id number] MCH (RBC) [Entitic mass] 21.7 pg Low 27.0-31.2 [facility] ([place] Comment on above: Performed By: #### V IDH, ANEU, DIMER, CBC, GFR, CMP, FT4, TSH, FERR, ADIFF #### [place] [address] MCHC 30.8 G/dL Low 33.0-37.0 [facility] ([place] Comment on above: Performed By: #### V IDH, ANEU, DIMER, CBC, GFR, CMP, FT4, TSH, FERR, ADIFF #### [address] [address] MCV (RBC) [Entitic vol] 70.4 fL Low 80.0-94.0 [facility] ([place]) Comment on above: Performed By: #### V IDH, ANEU, DIMER, CBC, GFR, CMP, FT4, TSH, FERR, ADIFF #### [address] [address] Platelet 383 10 3/mcL Normal 130-400 [facility] ([place]) Comment on above: Performed By: #### V IDH, ANEU, DIMER, CBC, GFR, CMP, FT4, TSH, FERR, ADIFF #### [address] [address] Platelet mean volume (Bld) [Entitic vol] 7.3 fL Low 7.4-10.4 [facility] ([place] Comment on above: Performed By: #### V IDH, ANEU, DIMER, CBC, GFR, CMP, FT4, TSH, FERR, ADIFF #### [address] [address] RBC 4.91 10 6/mcL Normal 4.20-5.40 [facility] ([place] Comment on above: Performed By: #### V IDH, ANEU, DIMER, CBC, GFR, CMP, FT4, TSH, FERR, ADIFF #### [address] [address] WBC 8.7 10 3/mcL Normal 4.6-10.8 [facility] ([place] Comment on above: Performed By: #### V IDH, ANEU, DIMER, CBC, GFR, CMP, FT4, TSH, FERR, ADIFF #### [address] [address] CMPon 10-27-2023 Albumin Level 3.6 G/dL Normal 3.5-5.0 [facility]) Comment on above: Performed By: #### A DIFF, FE, DIMER, FERR, ANEU, CBC #### [address] [address] Albumin/Globulin [Mass ratio] 0.9 {ratio} Low 1.1-2.5 [facility] ([place]) Comment on above: Performed By: #### A DIFF, FE, DIMER, FERR, ANEU, CBC #### [address] [address] ALP [Catalytic activity/Vol] 157 U/L High 40-135 [facility] ([place]) Comment on above: Performed By: #### A DIFF, FE, DIMER, FERR, ANEU, CBC #### [address] [address] ALT [Catalytic activity/Vol] 22 U/L Normal 14-59 [facility] ([place]) Comment on above: Performed By: #### A DIFF, FE, DIMER, FERR, ANEU, CBC #### [address] [address] AST [Catalytic activity/Vol] 14 U/L Normal 10-40 [facility] ([place] Comment on above: Performed By: #### A DIFF, FE, DIMER, FERR, ANEU, CBC #### [address] [address] Bili Total 0.3 mg/dL Normal 0.2-1.0 [facility] ([place]) Comment on above: Result Comment: Use of this assay is not recommended for patients undergoing treatment with eltrombopag due to the potential for falsely elevated results. Performed By: #### A DIFF, FE, DIMER, FERR, ANEU, CBC #### [address] [address] BUN/Creatinine Ratio 23 ratio Normal 7-27 [facility] ([place]) Comment on above: Performed By: #### A DIFF, FE, DIMER, FERR, ANEU, CBC #### [address] [address] Calcium [Mass/Vol] 9.2 mg/dL Normal 8.4-10.2 [facility] ([place]) Comment on above: Performed By: #### A DIFF, FE, DIMER, FERR, ANEU, CBC #### [address] [address] Chloride [Moles/Vol] 99 mmol/L Normal 98-107 [facility] ([place]) Comment on above: Performed By: #### A DIFF, FE, DIMER, FERR, ANEU, CBC #### [place] [address] CO2 [Moles/Vol] 29 mmol/L Normal 22-29 [facility] ([place]) Comment on above: Performed By: #### A DIFF, FE, DIMER, FERR, ANEU, CBC #### [place] [address] Creatinine [Mass/Vol] 0.86 mg/dL Normal 0.55-1.02 [facility] ([place] Comment on above: Performed By: #### A DIFF, FE, DIMER, FERR, ANEU, CBC #### [address] [address] Electrolyte Balance 7.0 mEq/L Normal 4.0-15.0 [facility] [place] Comment on above: Performed By: #### A DIFF, FE, DIMER, FERR, ANEU, CBC #### [address] [address] Globulin 4.2 G/dL Normal [facility] ([place]) Comment on above: Performed By: #### A DIFF, FE, DIMER, FERR, ANEU, CBC #### [address] [address] Glucose [Mass/Vol] 100 mg/dL Normal 70-105 [facility] ([place]) Comment on above: Performed By: #### A DIFF, FE, DIMER, FERR, ANEU, CBC #### [address] [address] Potassium [Moles/Vol] 4.4 mmol/L Normal 3.5-5.1 [facility] ([place]) Comment on above: Performed By: #### A DIFF, FE, DIMER, FERR, ANEU, CBC #### [address] [address] Sodium [Moles/Vol] 135 mmol/L Low 136-145 [facility] ([place] Comment on above: Performed By: #### A DIFF, FE, DIMER, FERR, ANEU, CBC #### [address] [address] Total Protein 7.8 G/dL Normal 6.4-8.2 [facility] ([place] Comment on above: Performed By: #### A DIFF, FE, DIMER, FERR, ANEU, CBC #### [address] [address] Urea nitrogen [Mass/Vol] 20 mg/dL High 7-18 [facility] ([place] Comment on above: Performed By: #### A DIFF, FE, DIMER, FERR, ANEU, CBC #### [address] [address] DIMERon 10-27-2023 D-Dimer 4310 ng/mL D-DU High 0-230 [facility] ([place]) Comment on above: Result Comment: Resu lts [...] DIFF, FE, DIMER, FERR, ANEU, CBC #### [address] [place] [address] Sal 10-27-2023 Ferritin [Mass/Vol] 10.0 ng/mL Normal 8.0-252.0 [facility] [place] Comment [place] above: Performed By: #### A DIFF, FE, DIMER, FERR, ANEU, CBC #### [address] [address] FT4on 10-27-2023 Free T4 [Mass/Vol] 1.01 ng/dL Normal 0.76-1.46 [facility] ([place]) Comment on above: Performed By: #### A DIFF, FE, DIMER, FERR, ANEU, CBC #### [place] [address] TSHon 10-27-2023 TSH Qn 2.22 m[IU]/L Normal 0.36-3.74 [facility] ([place]) Comment on above: Performed By: #### A DIFF, FE, DIMER, FERR, ANEU, CBC #### [address] [address] VIDHon 10-27-2023 Vit. D 25-Hydroxy 29.6 ng/mL Normal [facility] ([place]) Comment on above: Result Comment: Inte rpretive Values Based on Total 25(OH) Vitamin D: Deficient <20 ng/mL Insufficient 20 - <30 ng/mL Sufficient 30-100 ng/mL Performed By: #### A DIFF, FE, DIMER, FERR, ANEU, CBC #### [address] [address] .Auto Diffon 12-22-2022 Basophil, Absolute 0.1 10 3/mcL Normal 0.0-0.2 [facility] ([place] Comment on above: Performed By: #### A DIFF, FE, DIMER, FERR, ANEU, CBC #### [address] [address] Basophils/100 WBC (Bld) 0.8 % Normal 0.0-2.5 [facility] ([place]) Comment on above: Performed By: #### A DIFF, FE, DIMER, FERR, ANEU, CBC #### [address] [address] Eosinophil, Absolute 0.5 10 3/mcL High 0.0-0.4 [facility] ([place]) Comment on above: Performed By: #### A DIFF, FE, DIMER, FERR, ANEU, CBC #### [address] [address] Eosinophils/100 WBC (Bld) 7.1 % High 0.0-7.0 [facility] ([place]) Comment on above: Performed By: #### A DIFF, FE, DIMER, FERR, ANEU, CBC #### [address] [address] Lymphocyte, Absolute 1.8 10 3/mcL Normal 0.8-3.9 [facility] ([place]) Comment on above: Performed By: #### A DIFF, FE, DIMER, FERR, ANEU, CBC #### [address] [address] Lymphocytes/100 WBC (Bld) 26.6 % Normal 10.0-50.0 [facility] ([place]) Comment on above: Performed By: #### A DIFF, FE, DIMER, FERR, ANEU, CBC #### [address] [address] Monocyte, Absolute 0.4 10 3/mcL Normal 0.2-1.0 [facility] ([place]) Comment on above: Performed By: #### A DIFF, FE, DIMER, FERR, ANEU, CBC #### [address] [address] Monocytes/100 WBC (Bld) 5.3 % Normal 1.7-13.0 [facility] ([place]) Comment on above: Performed By: #### A DIFF, FE, DIMER, FERR, ANEU, CBC #### [address] [address] Neutrophils/100 WBC (Bld) 60.2 % Normal 37.0-80.0 [facility] ([place] Comment on above: Performed By: #### A DIFF, FE, DIMER, FERR, ANEU, CBC #### [address] [address] .NEUABSon 12-22-2022 Neutrophil, Absolute 4.0 10 3/mcL Normal 2.9-6.2 [facility] ([place] Comment on above: Performed By: #### A DIFF, FE, DIMER, FERR, ANEU, CBC #### [address] [address] CBCon 12-22-2022 Erythrocyte distribution width (RBC) [Ratio] 17.5 % High 11.5-14.5 [facility] ([place] Comment on above: Performed By: #### A DIFF, FE, DIMER, FERR, ANEU, CBC #### [place] [address] Hematocrit (Bld) [Volume fraction] 33.4 % Low 37.0-47.0 [facility] ([place] Comment on above: Performed By: #### A DIFF, FE, DIMER, FERR, ANEU, CBC #### [place] [address] Hgb 10.5 G/dL Low 12.0-16.0 [facility] ([place] Comment on above: Performed By: #### A DIFF, FE, DIMER, FERR, ANEU, CBC #### [place] [id number] MCH (RBC) [Entitic mass] 23.6 pg Low 27.0-31.2 [facility] ([place] Comment on above: Performed By: #### A DIFF, FE, DIMER, FERR, ANEU, CBC #### [place] [address] MCHC 31.5 G/dL Low 33.0-37.0 [facility] ([place] Comment on above: Performed By: #### A DIFF, FE, DIMER, FERR, ANEU, CBC #### [place] [address] MCV (RBC) [Entitic vol] 74.9 fL Low 80.0-94.0 [facility] ([place] Comment on above: Performed By: #### A DIFF, FE, DIMER, FERR, ANEU, CBC #### [address] [address] Platelet 304 10 3/mcL Normal 130-400 [facility] ([place] Comment on above: Performed By: #### A DIFF, FE, DIMER, FERR, ANEU, CBC #### [address] [address] Platelet mean volume (Bld) [Entitic vol] 7.7 fL Normal 7.4-10.4 [facility] ([place] Comment on above: Performed By: #### A DIFF, FE, DIMER, FERR, ANEU, CBC #### [place] [address] RBC 4.46 10 6/mcL Normal 4.20-5.40 [facility] ([place] Comment on above: Performed By: #### A DIFF, FE, DIMER, FERR, ANEU, CBC #### [place] [address] WBC 6.7 10 3/mcL Normal 4.6-10.8 [facility] ([place] Comment on above: Performed By: #### A DIFF, FE, DIMER, FERR, ANEU, CBC #### [address] [address] Sal 12-22-2022 Ferritin [Mass/Vol] 14.0 ng/mL Normal 8.0-252.0 [facility] [place] Comment [place] above: Performed By: #### F ERR #### [address] [address] LABORATORYOrdered By: SYSTEM SYSTEM on 12-22-2022 Ferritin [...] Immature Retic Fraction 0.45 IRF Normal 0.20-0.46 [facility] ([place]) Comment on above: Performed By: #### A DIFF, FE, DIMER, FERR, ANEU, CBC #### [place] [id number] Reticulocytes, Auto 1.6 % Normal 0.2-2.3 [facility] [place] Comment on above: Performed By: #### A DIFF, FE, DIMER, FERR, ANEU, CBC #### [address] [address] VIDHon 12-22-2022 Vit. D 25-Hydroxy 25.7 ng/mL Normal [facility] ([place]) Comment on above: Result Comment: Inte rpretive Values Based on Total 25(OH) Vitamin D: Deficient <20 ng/mL Insufficient 20 - <30 ng/mL Sufficient 30-100 ng/mL Performed By: #### A DIFF, FE, DIMER, FERR, ANEU, CBC #### [place] [address] LABORATORYOrdered By: SYSTEM SYSTEM on 06-29-2022 Albumin [...] >100,000 COL/ML MIXED VEGA-PLEASE REPEAT-POSSIBLE CONTAMIN Normal [facility] Comment on above: Order Comment: Campu s: MAS DIPSTICKon 07-19-2021 POC APPEARANCE HAZY Normal CLEAR [facility] Comment on above: Order Comment: Campu s: MAS POC BILIRUBIN Negative Normal NEGATIVE [facility] Comment on above: Order Comment: Campu s: MAS POC BLOOD Negative Normal NEGATIVE [facility] Comment on above: Order Comment: Campu s: MAS POC COLOR YELLOW Normal [facility] Comment on above: Order Comment: Campu s: MAS POC KETONE 5 MG/DL Normal NEGATIVE [facility] Comment on above: Order Comment: Campu s: MAS POC LEUK EST 70 BRICE/uL [facility]: Order Comment: Campu s: MAS POC NITRITE Negative Normal NEGATIVE [facility] Comment on above: Order Comment: Campu s: MAS POC PROTEIN 30 MG/DL Normal NEGATIVE [facility] Comment on above: Order Comment: Campu s: MAS POC SPEC GRAV 1.030 Normal 1.005-1.03 0 [facility] Comment on above: Order Comment: Campu s: MAS POC UA GLUCOSE NORMAL Normal [facility]AL [facility] Comment on above: Order Comment: Campu s: MAS POC UA PH 5.0 Normal 5-6 [facility] Comment on above: Order Comment: Campu s: MAS POC UROBIL 1.0 MG/DL Normal NORMAL [facility] Comment on above: Order Comment: Campu s: MAS MSCon 07-19-2021 [facility] REPORT Normal [facility] DATE OF SERVICE: 11/2021 REASON FOR [...] no refill. I will send urine for [facility] PATIENT NAME: RAIN MURPHY [address] [place] MEDICAL REC #: [id number] [place] [address] [facility] REPORT [facility] PHYSICIAN culture. She should drink a lot of fluid, Tylenol as needed, and follow with her doctor if there is no improvement. Patient understood and agreed. Bridger Croft MD PP/[id number] [facility] File#: [id number] END OF DOCUMENT / CHANGE LOG FOLLOWS Last Edited By [employer]. Signed By Bridger Croft MD #[id number] Bridger Croft MD #[id number] on 07/24/2021 13:38 ET on 07/24/2021 13:38 ET Revision Number - 2 Verified/Reviewed by 07/24/[address] [facility] PATIENT NAME: RAIN MURPHY Lois [address] [place] MEDICAL REC #: [id number] [place] [address] [facility] REPORT [facility]IC[facility] Normal [facility] LABORATORYOrdered By: Fiordaliza Alford on 03-15-2021 Beta HCG ( test) Ql (U) Negative (03/15/21 7:35 AM) [facility] Work Phone: LABORATORYOrdered By: SYSTEM SYSTEM [...] rate/Area] ml/min/1.73sqm Invalid Interpretation Code Chemistry S GFR/1.73 sq M.predicted among non-blacks MDRD (S/P/Bld) [Vol rate/Area] ml/min/1.73sqm Invalid Interpretation Code Chemistry S Globulin 3.9 G/dL Invalid Interpretation Code 1.5 - 3.8 G/dL ADM SS Glucose [Mass/Vol] 101 mg/dL Invalid [...] Time Vital Sign Value Performing Clinician Facility 01-04-2025 09:59-0400 Body height 156.[address] Berna Howell MD Work Phone: [facility] 01-04-2025 09:59-0400 Body mass index (BMI) [Ratio] 57.8 kg/m2 Dr. Berna Howell MD Work Phone: [facility] 01-04-2025 09:59-0400 Body weight 141.[address] Berna Howell MD Work Phone: [facility] 01-04-2025 09:59-0400 Diastolic blood pressure 70 mm[Hg] Dr. Berna Howell MD Work Phone: [facility] 01-04-2025 09:59-0400 Heart rate 71 /min Dr. Berna Howell MD Work Phone: [facility] 01-04-2025 09:59-0400 Respiratory rate 18 /min Dr. Berna Howell MD Work Phone: [facility] 01-04-2025 09:59-0400 SaO2% (BldA) [Mass fraction] 94 % Dr. Berna Howell MD Work Phone: [facility] 01-04-2025 09:59-0400 Systolic blood pressure 101 mm[Hg] Dr. Berna Howell MD Work Phone: [facility] 12-05-2024 09:30-0400 Body temperature 97.7 [degF] Dr. Berna Howell MD Work Phone: [facility] 12-05-2024 09:30-0400 Diastolic blood pressure 64 mm[Hg] Dr. Berna Howell MD Work Phone: [facility] 12-05-2024 09:30-0400 Heart rate 68 /min Dr. Berna Howell MD Work Phone: [facility] 12-05-2024 09:30-0400 Respiratory rate 16 /min Dr. Berna Howell MD Work Phone: [facility] 12-05-2024 09:30-0400 SaO2% (BldA) [Mass fraction] 94 % Dr. Berna Howell MD Work Phone: [facility] 12-05-2024 09:30-0400 Systolic blood pressure 116 mm[Hg] Dr. Berna Howell MD Work Phone: [facility] 12-05-2024 07:32-0400 Body height 154.[address] Berna Howell MD Work Phone: [facility] 12-05-2024 07:32-0400 Body mass index (BMI) [Ratio] 58.3 kg/m2 Dr. Berna Howell MD Work Phone: [facility] 12-05-2024 07:32-0400 Body weight [address] Berna Howell MD Work Phone: [facility] 07-11-2024 11:32-0400 Body temperature 98.2 [degF] Evans Nolan MD Work Phone: [facility] 07-11-2024 11:32-0400 Body weight 150.87 kg Evans Nolan MD Work Phone: [facility] 07-11-2024 11:32-0400 Diastolic blood pressure 76 mm[Hg] Evans Nolan MD Work Phone: [facility] 07-11-2024 11:32-0400 Heart rate 59 /min Evans Nolan MD Work Phone: [facility] 07-11-2024 11:32-0400 Respiratory rate 20 /min Evans Nolan MD Work Phone: [facility] 07-11-2024 11:32-0400 SaO2% (BldA) [Mass fraction] 91 % Evans Nolan MD Work Phone: [facility] Comment on above: Checked multiple fingers 07-11-2024 11:32-0400 Systolic blood pressure 121 mm[Hg] Evans Nolan MD Work Phone: [facility] 10-28-2023 11:53-0400 Diastolic Blood Pressure Non-Invasive 76 mm[Hg] DR ROMAINE CARR DO [facility] 10-28-2023 11:53-0400 Heart rate 60 /min DR ROMAINE CARR DO [facility] 10-28-2023 11:53-0400 Respiratory rate 16 /min DR ROMAINE CARR DO [facility] 10-28-2023 11:53-0400 Systolic Blood Pressure Non-Invasive 112 mm[Hg] DR ROMAINE CARR DO [facility] 10-28-2023 11:46-0400 Body weight 155.[address] ROMAINE CARR DO [facility] 10-28-2023 10:29-0400 Diastolic Blood Pressure Non-Invasive 77 mm[Hg] DR ROMAINE CARR DO [facility] 10-28-2023 10:29-0400 Heart rate 67 /min DR ROMAINE CARR DO [facility] 10-28-2023 10:29-0400 Respiratory rate 16 /min DR ROMAINE CARR DO [facility] 10-28-2023 10:29-0400 Systolic Blood Pressure Non-Invasive 132 mm[Hg] DR ROMAINE CARR DO [facility] 10-28-2023 09:42-[address] ROMAINE CARR DO [facility] 10-28-2023 09:42-[address] ROMAINE CARR DO [facility] 10-28-2023 09:42-0400 Body temperature 98.24 [degF] DR ROMAINE CARR DO [facility] 10-28-2023 09:42-0400 Diastolic Blood Pressure Non-Invasive 74 mm[Hg] DR ROMAINE CARR DO [facility] 10-28-2023 09:42-0400 Heart rate 65 /min DR ROMAINE CARR DO [facility] 10-28-2023 09:42-0400 Respiratory rate 18 /min DR ROMAINE CARR DO [facility] 10-28-2023 09:42-0400 Systolic Blood Pressure Non-Invasive 109 mm[Hg] DR ROMAINE CARR DO [facility] 06-29-2022 12:55-0400 Diastolic Blood Pressure Non-Invasive [address] BYRON DÍAZ MD [facility] 06-29-2022 12:55-0400 Heart rate 68 /min DR BYRON DÍAZ MD [facility] 06-29-2022 12:55-0400 Respiratory rate 18 /min DR BYRON DÍAZ MD [facility] 06-29-2022 12:55-0400 Systolic Blood Pressure Non-Invasive [address] BYRON DÍAZ MD [facility] 06-29-2022 11:24-0400 Body temperature 96.62 [degF] DR BYRON DÍAZ MD [facility] 06-29-2022 11:24-0400 Diastolic Blood Pressure Non-Invasive [address] BYRON DÍAZ MD [facility] 06-29-2022 11:24-0400 Heart rate 66 /min DR BYRON DÍAZ MD [facility] 03-19-2023 11:24-0400 Respiratory rate 23 /min DR BYRON DÍAZ MD [facility] 06-29-2022 11:24-0400 Systolic Blood Pressure Non-Invasive [address] BYRON DÍAZ MD [facility] 11-21-2021 16:49-0400 Diastolic blood pressure 65 mm[Hg] PHIL SMITH MD [facility] 11-21-2021 16:49-0400 Heart rate 60 /min PHIL SMITH MD [facility] 11-21-2021 16:49-0400 Respiratory rate 18 /min PHIL SMITH MD [facility] 11-21-2021 16:49-0400 Systolic blood pressure 112 mm[Hg] PHIL SMITH MD [facility] 11-21-2021 15:18-0400 Body temperature 98.24 [degF] PHIL SMITH MD [facility] 11-21-2021 15:18-0400 Body weight 127 kg PHIL SMITH MD [facility] 11-21-2021 15:18-0400 Diastolic blood pressure 73 mm[Hg] PHIL SMITH MD [facility] 11-21-2021 15:18-0400 Heart rate 62 /min PHIL SMITH MD [facility] 11-21-2021 15:18-0400 Respiratory rate 20 /min PHIL SMITH MD [facility] 11-21-2021 15:18-0400 Systolic blood pressure 108 mm[Hg] PHIL SMITH MD [facility] 03-15-2021 10:06-0500 Body temperature 96.62 [degF] DR NENA COSBY MD [facility] 03-15-2021 10:06-0500 Diastolic Blood Pressure NBP [address] NENA COSBY MD [facility] 03-15-2021 10:06-0500 Heart rate 68 /min DR NENA COSBY MD [facility] 03-15-2021 10:06-0500 Reason For Taking VItal Signs DR NENA COSBY MD [facility] 03-15-2021 10:06-0500 Respiratory rate 16 /min DR NENA COSBY MD [facility] 03-15-2021 10:06-0500 Systolic Blood Pressure NBP [address] NENA COSBY MD [facility] 03-15-2021 09:58-0500 Body temperature 97.16 [degF] DR NENA COSBY MD [facility] 03-15-2021 09:58-0500 Diastolic Blood Pressure NBP [address] NENA COSBY MD [facility] 03-15-2021 09:58-0500 Heart rate 77 /min DR NENA COSBY MD [facility] 03-15-2021 09:58-0500 Mean blood pressure 75 mm[Hg] DR NENA COSBY MD [facility] 03-15-2021 09:58-0500 Respiratory rate 16 /min DR NENA COSBY MD [facility] 03-15-2021 09:58-0500 Systolic Blood Pressure NBP [address] NENA COSBY MD [facility] 03-15-2021 09:43-0500 Body temperature 96.8 [degF] DR NENA COSBY MD [facility] 03-15-2021 09:43-0500 Diastolic Blood Pressure NBP [address] NENA COSBY MD [facility] 03-15-2021 09:43-0500 Heart rate 78 /min DR NENA COSBY MD [facility] 03-15-2021 09:43-0500 Mean blood pressure 69 mm[Hg] DR NENA COSBY MD [facility] 03-15-2021 09:43-0500 Respiratory rate 16 /min DR NENA COSBY MD [facility] 03-15-2021 09:43-0500 Systolic Blood Pressure NBP [address] NENA COSBY MD [facility] 03-15-2021 09:35-0500 Heart rate 81 /min DR NENA COSBY MD [facility] 03-15-2021 09:15-0500 Body temperature 96.8 [degF] DR NENA COSBY MD [facility] 03-15-2021 09:06-0500 Body temperature 96.8 [degF] DR NENA COSBY MD [facility] 03-15-2021 07:35-0500 Body height 154.[address] NENA COSBY MD [facility] 03-15-2021 07:35-0500 Body weight 123.[address] NENA COSBY MD [facility] 03-15-2021 07:35-0500 Diastolic blood pressure 70 mm[Hg] DR NENA COSBY MD [facility] 03-15-2021 07:35-0500 Heart rate 65 /min DR NENA COSBY MD [facility] 03-15-2021 07:35-0500 Systolic blood pressure 103 mm[Hg] DR NENA COSBY MD [facility] 03-04-2021 09:05-0500 Body height [address] NENA COSBY MD [facility] 03-04-2021 09:05-0500 Body temperature 97.52 [degF] DR NENA COSBY MD [facility] 03-04-2021 09:05-0500 Body weight [address] NENA COSBY MD [facility] 03-04-2021 09:05-0500 diastolic 77 mm[Hg] DR NENA COSBY MD [facility] 03-04-2021 09:05-0500 Heart rate 77 /min DR NENA COSBY MD [facility] 03-04-2021 09:05-0500 systolic 113 mm[Hg] DR NENA COSBY MD [facility] Encounters Encounter Date Encounter Type Care Provider Facility Start: 01-30-2025 ambulatory Grace Argueta Facility :[facility] Start: 01-13-2025 ambulatory Grace Argueta Facility :[facility] Start: 01-04-2025 End: 01-04-[address] Grace Argueta MD -[facility] Work Phone: Start: 01-04-2025 End: 01-04-[address] Berna Howell MD Work Phone: -[facility] Start: 01-03-2025 End: 01-03-[address] Berna Howell MD Work Phone: -Ultrasound [facility] Start: 01-03-2025 End: 01-03-2025 Patient encounter procedure Peace Beaver PA -Ultrasound [facility] Work Phone: Start: 01-03-2025 End: 01-03-2025 ambulatory Peace Beaver Facility:[facility] Start: 12-20-2024 End: 12-20-2024 Patient encounter procedure Peace YOUNG -[facility] Work Phone: Start: 12-20-2024 End: 12-20-[address] 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 Start: 12-13-2024 End: 12-17-2024 Outreach Lab EPACE LEUNG [employer] IMPROVEMENT CONTRACTOR-INTELLECTUAL PROPERTY [employer]GAL [facility] Start: 12-05-2024 Non-patient / Non-visit Jose Bermudez nd DO -[facility] Start: 12-05-2024 End: 12-05-2024 Admission to same day surgery center Jose Pettit DO -Endoscopy Work Phone: Start: 12-05-2024 End: 12-05-[address] Berna Howell MD Work Phone: -Endoscopy Start: 11-22-2024 ambulatory BERNA HOWELL MD Faci lity:[facility] Start: 10-13-2024 End: 10-13-2024 Patient encounter procedure Peace Beaver [facility] Work Phone: Start: 10-13-2024 End: 10-13-[address] Berna Howell MD Work Phone: -[facility] Start: 10-03-2024 End: 10-03-2024 ambulatory BERNA HOWELL MD Facility:[facility] Start: 10-03-2024 End: 10-03-2024 Patient encounter procedure BERNA HOWELL MD [facility] Start: 09-12-2024 End: 09-12-2024 Emergency department patient visit DR MARY CARMEN PARDO MD [facility] Start: 08-08-2024 End: 10-07-2024 ambulatory BERNA HOWELL MD Facility:[facility] Start: 08-08-2024 End: 10-07-2024 Physical therapy management BERNA HOWELL MD [facility] Start: 08-05-2024 End: 08-05-2024 ambulatory BERNA HOWELL MD Facility:[facility] Start: 08-05-2024 End: 08-05-2024 Patient encounter procedure BERNA HOWELL MD [facility] Start: 07-11-2024 End: 07-11-2024 Emergency department patient visit PHIL SMITH MD Facility:[facility] Start: 07-11-2024 End: 07-11-2024 Office outpatient visit 15 minutes Evans Nolan MD Work Phone: [facility] [place] Comment on above: Abdominal pain, left lower quadrant (Primary Dx); History of diverticulosis; MUNOZ (dyspnea on exertion); Hypoxia Start: 07-11-2024 End: 07-11-2024 ambulatory BERNA HOWELL Facility:[id number] Start: 02-17-2024 End: 02-17-2024 ambulatory BERNA HOWELL MD Facility:[facility] Start: 02-17-2024 End: 02-17-2024 Patient encounter procedure BERNA HOWELL MD [facility] Start: 11-27-2023 End: 11-27-2023 ambulatory BERNA HOWELL MD Facility:[facility] Start: 11-27-2023 End: 11-27-2023 Patient encounter procedure BERNA HOWELL MD [facility] Start: 11-24-2023 End: 11-24-2023 ambulatory BERNA HOWELL MD Facility:[facility] Start: 11-10-2023 End: 11-10-2023 ambulatory BERNA HOWELL MD Facility:[facility] Start: 10-28-2023 End: 10-28-2023 Emergency department patient visit DR ROMAINE CARR DO [facility] Start: 10-28-2023 ambulatory BERNA HOWELL MD Faci lity:[facility] Start: 10-27-2023 End: 10-27-2023 ambulatory BERNA HOWELL MD Facility:[facility] Start: 12-22-2022 End: 12-26-2022 ambulatory BERNA HOWELL MD Facility:[facility] Start: 12-22-2022 End: 12-26-2022 Outreach Lab BERNA HOWELL MD [facility] Start: 06-29-2022 End: 06-29-2022 Emergency department patient visit DR BYRON DÍAZ MD [facility] Start: 11-21-2021 End: 11-21-2021 Emergency department patient visit PHIL SMITH MD [facility] Start: 03-15-2021 End: 03-15-[address] NENA COSBY MD [facility] Start: 03-04-2021 End: 03-04-[address] NENA COSBY MD [facility] Procedures Date Procedure Procedure Detail Performing Clinician Start: 01-03-2025 Ultrasound elastogra phy of liver Dr. Berna Howell MD Work Phone: Start: 12-05-[address] Berna Howell MD Work Phone: Start: 04-13-2019 Entire nasal sinus ( body structure) DR NENA COSBY MD Comment on above: ballooning Cholecystectomy DR PAULO COSBY MD Colonoscopy DR NENA ENGLE MD Comment on above: x2 Decompression of med sonia nerve DR NENA COSBY MD Comment on above: bilateral Septoplasty/submucou s resecj w/wo cartilage grf DR NENA COSBY MD Plan of Treatment Date Care Activity Detail Author Start: 07-08-2027 Screening for malign ant neoplasm of colon [facility] Start: 01-13-2025 Measurement of respiratory function [facility] Start: 01-04-2025 Evaluation of diagno stic study results [facility] Start: 12-05-2024 Colonoscopy DIAGNOSTIC COLONOSCOPY [facility] Start: 12-05-2024 Colonoscopy flx dx w/collj spec when pfrmd DIAGNOSTIC COLONOSCOPY [facility] Start: 12-05-2024 Endoscopy upper smal l intestine w/biopsy SMALL BOWEL ENDOSCOPY/BIOPSY [facility] Start: 12-05-2024 Patient discharge [facility] Start: 12-13-2023 Covid-19 Vaccine ( season) Covid-19 Vaccine ( season) [facility] Start: 12-13-2023 Influenza vaccination Influenza Vacc ine (#1) [facility] Start: 11-17-2019 Diabetes Screening Diabetes Screenin g [facility] Start: 11-17-2019 Lipid panel Lipid Screening [facility] Start: 11-17-2019 Screening for malign ant neoplasm of colon [facility] Start: 2014 Screening for malign ant neoplasm of breast Mammogram Screening [facility] Start: 10-24-2011 Urine microalbumin profile DTaP,Tdap,Td Vaccine (1 - Tdap) [facility] Start: 11-17-1995 Screening for malign ant neoplasm of cervix Cervical Cancer Screening [facility] Start: 1993 Hepatitis B Vaccine (1 of 3 - 19+ 3-dose series) Hepatitis B Vaccine (1 of 3 - 19+ 3-dose series) [facility] Start: 1992 Anxiety Screening Anxiety Screening [facility] Start: 1992 Depression Screening Depression Scre ening [facility] Start: 1992 Hepatitis C screening Hepatitis C Sc reening [facility] Start: 1992 HIV screening HIV Screening [facility] Liver stiffness by US.transient elastography [facility] Measurement of respiratory function [facility] NM Heart Views W str ess and W radionuclide IV [facility] Immunizations Immunization Date Immunization Notes Care Provider Fa maria m 08-21-2020 SARS-CoV-2 (COVID-19 ) Ad26 vaccine, recombinant DR NENA COSBY MD [facility] 12-08-2016 influenza virus vaccine, unspecified formulation DR NENA COSBY MD [facility] 01-11-2015 influenza virus vaccine, unspecified formulation DR NENA COSBY MD [facility] 10-23-2011 tetanus and diphther ia toxoids, adsorbed, preservative free, for adult use (5 Lf of tetanus toxoid and 2 Lf of diphtheria toxoid) DR NENA COSBY MD [facility] Payers Date Payer Category Payer Self-pay 2024 Unknown [id number] 2024 Private Health Insurance [id number] 2024 [facility] BLUE CARD PPO OOS [id number] 2024 Unknown [id number] 2024 Unknown [id number] 2023 Unknown [id number] 2023 Private Health Insurance [id number] 2022 Unknown [id number] 1974 Unknown [id number] 2.16840.1.307651.3.579.2. 1974 Unknown [id number] .840.1.314940.3.579.2. 1974 Unknown [id number] .840.1.259890.3.579.2. 1974 Unknown [id number] .840.1.139151.3.579.2 1974 Unknown [id number] .840.1.056973.3.579.2 1974 Unknown [id number] .840.1.449892.3.579.2. 1974 Unknown [id number] .840.1.160466.3.579.2. 1974 Unknown [id number] .840.1.228613.3.579.2. 1974 Unknown [id number] 840.1.706567.3.579.2. 1974 Unknown [id number] .840.1.926034.3.579.2. 1974 Unknown [id number] 16840.1.620000.3.579.2. 1974 Unknown [id number] .16840.1.128131.3.579.2. 1974 Unknown [id number] 16840.1.066939.3.579.2. 1974 Unknown [id number] 2.16.840.1.211005.3.579.2. 627 1974 Unknown [id number] 2.16.840.1.067735.3.579.2. 627 1974 Unknown [id number] 2.16.840.1.486248.3.579.2. 627 1974 Unknown [id number] 2.16.840.1.184308.3.579.2. 627 1974 Unknown [id number] 2.16.840.1.196521.3.579.2. 627 Unknown [id number] Unknown [id number] 2.16.840.1.990169.3.579.2. 462 Unknown [id number] 2.16.840.1.459295.3.579.2. 462 Unknown [id number] 2.16.840.1.260357.3.579.2. 462 Unknown [id number] 2.16.840.1.036975.3.579.2. 462 Unknown [id number] 2.16.840.1.433526.3.579.2. 462 Unknown [id number] 2.16.840.1.735813.3.579.2. 462 Unknown [id number] 2.16.840.1.928387.3.579.2. 462 Unknown [id number] 2.16.840.1.667628.3.579.2. 462 Social History Date Type Detail Facility Start: 11-26-2018 End: 01-04-2025 Never smoked tobacco (finding) [facility] Start: 1975 Sex Assigned At Female A [facility] Start: 09-01-2022 Tobacco use and exposure Smoke less tobacco non-user [facility] Start: 07-11-2024 Alcoholic beverage intake Ex-drinker (finding) [facility] Start: 09-01-2022 End: 07-11-2024 History of Social function [facility] Start: 09-01-2022 End: 07-11-2024 Tobacco use panel [facility] Adult Depression Screening Assessment 1 [facility] Start: 07-11-2024 Alcohol Comment very rare [facility] Start: 1975 Sex assigned at Not on file C [facility] Sexual Orientation [facility] Start: 10-06-2018 Sex Female (finding) [facility] Tobacco smoking stat us ARIS Unknown if ever smoked [facility] Work Phone: Goals Date Patient Goal Desired Activity /State Functional Status Date Assessment Result Facility 10-28-2023 Functional Status Independent [facility] 10-28-2023 Functional Status Standard Safet y ID band on, Call device within reach, Bed in low position [facility] 06-29-2022 Functional Status Independent [facility] 06-29-2022 Functional Status Standard Safet y ID band on, Call device within reach, Bed in low position, Wheels locked, Safety level maintained [facility] 11-21-2021 Functional Status Standard Safet y ID band on, Call device within reach, Bed in low position, Wheels locked, Upper/Half-Length side-rails up, Bedside Cart Locked, Safety level maintained [facility] Mental Status Date Assessment Result Facility 12-05-2024 Cognitive function Voice/Name [facility] Work Phone: 10-28-2023 Mental Status Orientation Oriented x 4 [facility] 06-29-2022 Mental Status Orientation Oriented x 4 [facility] 11-21-2021 Mental Status Orientation Oriented x 4 [facility] Clinical Notes 03-15-2021 to 01-05-2025 Note Date & Type Note Facility 01-05-2025 Radiology Diagnostic study note [facility] Imaging Services [address] [place] [address] ABD Limited w/ Elastography MR#: [id number] Acct: [id number] Name: RAIN MURPHY Rep #: [id number] : 1975 F 49 From: Kenia Champion MD PCP: Dr. Berna Howell MD Status: REG CLI Study:ABD Limited w/ Elastography Date of Exa m: 01/03/25 Exam# [id number] Ordering Dr: Peace Beaver PROCEDURE: ABD LIMITED W/ ELASTOGRAPHY, 01/03/2025 REASON FOR EXAM: ESOPHAGEAL VARICES COMPARISON: None TECHNIQUE: Grayscale and color Doppler imaging of the right upper quadrant was performed. Elastography was performed for non-invasive assessment of liver tissue stiffness utilizing a Wattage S-shear wave imaging unit. FINDINGS: Liver: Slightly heterogeneous appearance. 17.4 cm in length. Gallbladder: Cholecystectomy. Biliary tree: CBD top-normal in caliber at 7 mm, possible post cholecystectomy effect. Pancreas: Partially obscured by shadowing bowel gas, grossly unremarkable as visualized. Right kidney: Unremarkable. 9.7 cm in length. Other: No visualized free fluid. Hepatic elastography: Number of measurements: 6. US probe: CA1-7A. EQI median: 5.5 kPa EQI median velocity: 1.35 m/s IQR/Med: 28.6% (kPa) and 14.8% (m/s). If the IQR/Med is IQR/median >30% (for kPa) or >15% in m/s, the variance in the measurements is a large and the accuracy of the measurement may be in question. US/ABD Limited w/ Elastography IMPRESSION: 1. Borderline slightly heterogeneous hepatic echotexture could indicate early steatosis or other chronic liver disease. Correlate with clinical/laboratory evaluation. 2. Liver stiffness is 5.5 kPa. Per the below 2020 SRU criteria, this rules out compensated advanced chronic liver disease in the absence of other known clinical signs. If there are known clinical signs, further testing may be needed for confirmation. 3. Additional description as above. Assessment is per the Update to the SRU Liver Elastography Consensus Statement (2020) Note that the above assessment of liver fibrosis is vendor-neutral and intended for use in fibrosis related to viral etiologies and non-alcoholic fatty-liver disease (NAFLD); in causes other than viral hepatitis and NAFLD, the cutoff values are currently not well established. In some patients with NAFLD, the cutoff values for cACLD may be lower (7-9 kPa). Note also that in the setting of elevated LFTs, nonfasting or vascular congestion, the stage of lifer fibrosis may be overestimated. Previous SRU reference values: <1.37 m/s (5.7kPa): No to mild fibrosis 1.37 m/s - 2.2 m/s: Moderate to severe fibrosis >2.2 m/s (15kPa): Significant fibrosis / cirrhosis Reading Location: [id number] CC: Dr. Berna Howell MD; HECTOR [place] ~ [employer]er [employer] Spider: Signed [facility] 01-04-2025 Progress note [facility] 12-16-2024 Note Exam Date Time Procedure Performing Provider Status 12/16/24 7:59 AM US Pelvis Non-OB W/Transvaginal Mariela KIM DO; Auth (Verified) [id number] ORIGINAL EXAMINATION: TRANSVAGINAL PELVIC ULTRASOUND 12/16/2024 TECHNIQUE: [...] 12/16/2024 9:25:41 AM Ordering Provider: PEACE LEUNG [facility]09-02-2025 NoteEvent Display: GY Interp Adequacy SATISFACTORY FOR EVALUATION Endocervical/Transformational zone component present PAKO Linda (ASCP) Kimber:MATHEW; Authored Date: [id number] [facility] 08-25-2025 Consult note [facility] Medical Records Department [address] [facility] [place] [address] Anesthesia Postop Eval II 12/05/24 0942 MR#: [id number] Acct: [id number] Name: RAIN MURPHY Rep #: [id number] : 1975 49 From: James Rivera MD PCP: Dr. Berna Howell MD Status:REG SDC Y Race: C Location: [place] [address] Anesthesia Postop Eval I Sum Postop Eval [...] No 12/05/24 0942 D> Date _ James Alcantaraignnevaeh Signature: Date CC: ~ Signed [facility]08-25-2025 Procedure note [facility] Medical Records Department [address] [place] [address] Colonoscopy Report MR#: [id number] Acct: [id number] Name: RAIN MURPHY Rep #: [id number] : 1975 49 From: Jose Pettit DO PCP: Dr. Berna Howell MD Status:[facility] Patient Name: Rain Murphy Procedure Date: 12/05/2024 8:54 AM Date of : 1975 Age: 49 Procedure: Colonoscopy Indications: Screening for colorectal malignant neoplasm Providers: Jose Pettit DO Referring MD: Berna Howell Medicines: Monitored Anesthesia Care Patient Profile: This [...] screening purposes. Procedure Code(s): --- Professional --- 61000, Colonoscopy, flexible; diagnostic, including collection of specimen(s) by brushing or washing, when performed (separate procedure) CPT copyright 2021 [employer]. All rights reserved. The codes documented in this report are preliminary and upon water control station engineer review may be revised to meet current compliance requirements. Jose Pettit DO 12/05/2024 9:22:01 AM This report has been signed electronically. Number of Addenda: 0 Note Initiated On: 12/05/2024 8:54 AM 12/05/24921 Date _ Jose Bauman Signature: Date (if indicated) CC: Dr. Berna Howell MD; Jose Pettit DO ~ Date Dictated: 12/05/24853 Date Transcribed: Assembler [employer] Spider: RF Signed [facility]08-25-2025 Procedure note [facility] Medical Records Department [address] [place] [address] Provation Physician Letter MR#: [id number] Acct: [id number] Name: RAIN MURPHY Rep #: [id number] : 1975 49 From: Jose Pettit DO PCP: Dr. Berna Howell MD Status:REG [facility] 12/05/2024 Berna Howell Re : Colonoscopy procedure for Rain Murphy [...] been signed electronically. 12/05/24921 Date _ Jose Bauman Signature: Date (if indicated) CC: Dr. Berna Howell MD; Jose Pettit DO ~ Date Dictated: 12/05/24 0854 Date Transcribed: Assembler [employer] Spider: RF Signed [facility]08-25-2025 Procedure note [facility] Medical Records Department [address] [place] [address] EGD Report MR#: [id number] Acct: [id number] Name: RAIN MURPHY Rep #: [id number] : 1975 49 From: Jose Pettit DO PCP: Dr. Berna Howell MD Status:REG [facility] Patient Name: Rain Murphy Procedure Date: 12/05/2024 8:36 AM Date of : 1975 Age: 49 Procedure: Upper GI endoscopy Indications: Epigastric abdominal pain Providers: Jose Pettit DO Referring MD: Berna Howell Medicines: Monitored Anesthesia Care Patient Profile: This [...] pathology results. Procedure Code(s): --- Professional --- 77955, Small intestinal endoscopy, enteroscopy beyond second portion of duodenum, not including ileum; with biopsy, single or multiple CPT copyright 2021 [employer]. All rights reserved. The codes documented in this report are preliminary and upon water control station engineer review may be revised to meet current compliance requirements. Jose Pettit DO 12/05/2024 9:19:46 AM This report has been signed electronically. Number of Addenda: 0 Note Initiated On: 12/05/2024 8:36 AM 12/05/24 0919 Date _ Jose Pettit DO Cosnabil Signature: Date (if indicated) CC: Dr. Berna Howell MD; Jose Pettit DO ~ Date Dictated: 12/05/2436 Date Transcribed: Assembler [employer] Spider: RF Signed [facility]08-25-2025 Procedure note [facility] Medical Records Department [address] [place] [address] Provation Physician Letter MR#: [id number] Acct: [id number] Name: RAIN MURPHY Rep #: [id number] : 1975 49 From: Jose Pettit DO PCP: Dr. Berna Howell MD Status:REG [facility] 12/05/2024 Berna Howell Re : Upper GI endoscopy procedure for [...] electronically. 12/05/24918 Date _ Jose Pettit DO Cosnabil Signature: Date (if indicated) CC: Dr. Berna Howell MD; DO Ad Fu Date Dictated: 12/05/24 0836 Date Transcribed: Assembler [employer] Spider: RF Signed [facility]08-25-2025 Consult note [facility] Medical Records Department [address] [place] [address] Anesthesia Postop Eval I 12/05/24 0916 MR#: [id number] Acct: [id number] Name: RAIN MURPHYN Rep #: [id number] : 1975 49 From: Talon Parmar PCP: Dr. Berna Howell MD Status:REG SD Y Race: C Location: [place] [address] Anesthesia: Postop Eval I Current Vital Signs [...] completed: Yes 12/05/24916 > Date _ Talon Aguirre Signature: Date CC: ~ Signed [facility]08-25-2025 Consult note [facility] Medical Records Department [address] [place] [address] Pre-Anesthesia Evaluation 12/05/24 0819 MR#: [id number] Acct: [id number] Name: RAIN MURPHY Rep #: [id number] : 1975 49 From: James Rivera MD PCP: Dr. 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 Hx Hospitalization Any Problems With Anesthesia Yes: [...] take am of surgery PONV PONV - paralegal secretary: PONV - paralegal secretary Female Yes 12/01/24 10:35 HX of Motion Sickness No 12/01/24 10:35 HX of N/V After Surgery Yes 12/01/24 10:35 Non-Smoker Yes 12/01/24 10:35 Duration of Surgery greater No 12/01/24 10:35 than 60 minutes Number of Risk Factors 3 08/21/25 10:35 PONV Score Moderate Risk 12/01/24 10:35 Height & Weight Height & Weight: Anesthesia: Height & Weight Height 5 ft 1 in 12/05/24 07:32 Weight: 140 kg 12/05/24 07:32 Body Mass Index (BMI) 58.3 12/05/24 07:32 Respiratory Assessment Respiratory Assessment - paralegal secretary: Respiratory Tract Infection Hx - paralegal secretary Hx Respiratory Tract Infection No 12/01/24 10:35 STOP Sleep Apnea STOP Sleep Apnea - paralegal secretary: STOP Sleep Apnea - paralegal secretary Hx Hypertension Yes 12/01/24 10:35 Hx Sleep [...] Tobacco Use History Tobacco Use History - paralegal secretary: Tobacco Use History - paralegal secretary Tobacco Use Smoking Status Never smoker 12/01/24 10:35 Hx Tobacco Use No 12/01/24 10:35 Years Smoking Packs Smoked per Day Smoking Cessation Date was within the last 15 years Hx Smoking Cessation Date Hx Smoking Cessation Counseling Hematologic Medial History Hematologic Hx - paralegal secretary: 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 Specify any problems Hx of Preganancy in last 3 No 12/01/24 10:35 Months Nurse Filling Out [place] [facility] 12/01/24 10:35 & Questions: Date: 12/01/24 12/01/24 10:35 Time: 10:46 12/01/24 10:35 Patient unable to answer at this time (ie. confused, unrespo /Reproduction History /Reproductive History - paralegal secretary: /Reproductive Hx- paralegal secretary Hx Now No 12/01/24 10:35 Gestational Age [...] MD Cosigner Signature: Date CC: ~ Signed [facility]08-25-2025 History and physical note [facility] Medical Records Department [address] [place] [address] History & Physical Exam 12/05/24 0804 MR#: [id number] Acct: [id number] Name: RAIN MURPHY Rep #: [id number] : 1975 49 From: Jose Pettit DO PCP: Dr. Berna Howell MD Status:[facility] Location: [place] [address] HPI - General General Date of Admission: 12/05/24 Date of Service: 12/05/24 Chief Complaint: Intermittent constipation with abdominal pain followed by occasional nausea vomiting with breakthrough heartburn HPI Narrative RAIN MURPHY, is a 49 F who presents with the Chief Complaint: constipation and abdominal pain [facility] 6.2.25 wiht LLQ pain. Pt with [...] a dayand has breakbothoura heartburn on occasion. [facility] Medical History H/O psoriasis Post-menopausal Wears glasses [...] (gastroesophageal reflux disease): Status: Acute 12/05/24 08 Cosigner Signature (if applicable): CC: Dr. Berna Howell MD; Jose Pettit DO~ Signed [facility]08-25-2025 [facility] Medical Records Department [address] [place] [address] History Physical Exam 12/05/24 0804 MR#: [id number] Acct: [id number] Name: RAIN MURPHY Rep #: [id number] : 1975 49 From: Jose Pettit DO PCP: Dr. Berna Howell MD Status:REG [facility] Location: [place] [address] HPI - General General Date of Admission: 12/05/24 Date of Service: 12/05/24 Chief Complaint: Intermittent constipation with abdominal pain followed by occasional nausea vomiting with breakthrough heartburn HPI Narrative RAIN MURPHY, is a 49 F who presents with the Chief Complaint: constipation and abdominal pain [facility] 6.2.25 wiht LLQ pain. Pt with [...] day and has breakbothoura heartburn on occasion. [facility] Medical History H/O psoriasis Post-menopausal Wears glasses [...] here today for worsen (more content not included)...[facility] 10-13-2024 Evaluation note* Diagnosis Onset Date Resolution Status Admit Date Constipation acute October 13 7:16am GERD (gastroesophageal reflu x disease) acute October 13, 2024 7 :16am Hx of colonic polyps acute October 13, 2024 7:16am Constipation acute December 05, 2024 7:08am GERD (gastroesophageal reflu x disease) acute December 05 7:08am Hx of colonic polyps acute 2024 7:08am [facility] Work Phone: 1(396) 929-959607-03-2025 Evaluation note* Diagnosis Onset Date Resolution Status Admit Date Constipation acute October 13 7:16am GERD (gastroesophageal reflu x disease) acute October 13, 2024 7 :16am Hx of colonic polyps acute October 13, 2024 7:16am Constipation acute December 05, 2024 7:08am GERD (gastroesophageal reflu x disease) acute December 05 7:08am Hx of colonic polyps acute 2024 7:08am Esophageal varices acute 2024 7:36am [facility] Work Phone: 1(166) 262-619207-03-2025 Evaluation note* Diagnosis Onset Date Resolution Status Admit Date Constipation acute October 13 7:16am GERD (gastroesophageal reflu x disease) acute October 13, 2024 7 :16am Hx of colonic polyps acute October 13, 2024 7:16am Constipation acute December 05, 2024 7:08am GERD (gastroesophageal reflu x disease) acute December 05 7:08am Hx of colonic polyps acute 2024 7:08am Constipation acute December 7:36am Esophageal varices acute Septem 2024 7:36am GERD (gastroesophageal reflu x disease) acute December 20, 025 7:36am Hyperlipidemia acute January 04, 2025 9:55am Shortness of breath on exertion acute January 04, 2025 9:55am Hypertension chronic January 042024 9:55am [facility] Work Phone: 1(525) 257-653706-02-2025 Hospital Discharge instructions Patient Education 09/12/2024 14:51:30 [...] foods again, start with small amounts of doqw-hm-zuhjfg, low- fat foods. These include apple sauce, [...] increase stomach acid. Don't use aspirin or xlkr-ybc-qrozgpn pain and fever medicines, if possible. This includes nonsteroidal anti-inflammatory drugs (NSAIDs). Lose excess weight. Finish eating at least 2 hours before you go to bed or lie down. Raise the head of your bed. [phone] The [employer]. [address] [place] [address], [place] [address]. All rights reserved. This information is not intended as a substitute for professional medical care. Always follow yourhealthcare professional's instructions. Follow Up Care 09/12/2024 13:26:52 With:BERNA HOWELL MD Address: [place] [address]- When:2-[address] [facility] 06-02-2025 Emergency department Discharge summary Discharge Instructions Thank you for allowing [facility] to assist you with your healthcare needs. The following is importantdischarge information regarding your hospital visit. Diagnosis from Today's Visit Abdominal pain What to Do Next Instructions from Your Care Team No qualifying data available. Post Acute Orders No qualifying data available. You Need to Schedule the Following Appointments Follow Up with BERNA HOWELL MD When:Within 2-4 days Where:[place] [address]- Allergies Bactrim Blisters propofol Anxiety [...] foods again, start with small amounts of gvpv-le-xrasxq, low- fat foods. These include apple sauce, [...] increase stomach acid. Don't use aspirin or ychy-cpd-khxklqx pain and fever medicines, if possible. This includes nonsteroidal anti-inflammatory drugs (NSAIDs). Lose excess weight. Finish eating at least 2 hours before you go to bed or lie down. Raise the head of your bed. [phone] The [employer]. [address] [place] [address], [place] [address]. All rights reserved. This information is not intended as a substitute for professional medical care. Always follow yourhealthcare professional's instructions. Additional Information VACCINATE! IT SAVES LIVES! Members of the community who have not yet received the COVID-19 vaccine and would like to receive it can visit one of [facility] vaccine clinics. There are many vaccine clinic locations within the [facility]. For locations and available times, please visit www.gettheshot.coronavirus.[place].gov/. It is important to note that some COVID mobile vaccine clinics are held outdoors and may be canceled in rainy or stormy conditions. To learn more about pediatric vaccinations (ages 5-11), we invite you to visit the [facility] webpage. https://www.[employer] Pharm[employer]ss.org/pages/7465-Lomam-Heiyvovxjqw-Nrnbnltdmf-Rsznt-Eir stions.htmlTo learn more about the COVID-19 vaccine, we invite you to visit the CDC website for a list of frequently asked questions. https://www.cdc.gov/coronavirus/2019-ncov/vaccines/faq.html [facility] Patient Portal Access Instructions: Stay connected with your healthcare team and access your personal medical information anytime with the [email or web address] Patient Portal. If you would like a full copy of your medical records please contact the [facility] Medical Records Department Thursday through Thursday between 8a.m. and 4:30p.m. Please follow the directions below to access the portal: 1.Access the email account you provided upon registration to the [facility].2.Look for an invitation email from [facility].3.Open the email and access the invitation link: Accept Invitation to [email or web address].Fill in the required de la garza to create your account. Sign into [email or web address] with your username and password that you [...] you will allow to register on the [email or web address] Patient Portal for access to your information. You can also access the [facility] Patient Portal on the GroupMe. Simply click on Health Records under St[employer]s and then click on the [employer] logo. HOW TO SAFELY DISPOSE OF PRESCRIPTION [...] Call your local pharmacy or go to [email or web address] to find one close to you.3.Make use of household items: Use cat litter or old coffee grounds to dispose medications if other options arenot available. Mix your drugs with these household products, seal them in an airtight container andthrow it into the garbage. [facility]: [phone] to be sure your drugs can be [...] aware that I should contact my doctor. 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06-02-2025 Note* Exam Date Time Procedure Performing Provider Status 09/12/24 2:[address] Abd/Pelvis w/ IV Contrast Only GRACE RIVERO MD; Auth (Verified) [id number] ORIGINAL EXAMINATION: CT OF THE ABDOMEN AND [...] Date: 09/12/2024 2:36:04 PM Ordering Provider: ROSA GWYN [facility]03-31-2025 NoteHNO ID: [id number] Author: EVANS NOLAN MD Service: ? Author Type: Physician Type: Progress Notes Filed: 07/11/2024 12:29 Note Text: [facility]ERT Murphy is a 48 [...] hematuria. She has been referred to a optical glass etcher for dyspnea on exertion. Prior colon evaluations [...] care at [facility] and will go to the ER therefore further evaluation. 3. MUNOZ (dyspnea on exertion) - ICD9: 786.09, ICD10: R06.09 4. Hypoxia - ICD9: 799.02, ICD10: R09.02 Pulse ox confirmed ranging between 91-93 at rest. She denies any past history of hypoxia or asthma. Low suspicion for pneumonia without cough or cold symptoms. Further evaluation for CHF at the ER. Evans Nolan MD History and Record Review Systemic symptoms present included: Chills Differential Diagnoses - Diverticulitis - Infectious gastroenteritis - Hypoxia and abnormal breath sounds; rule out CHF Disposition The patient was other (comment) (Referred to [facility] ER). [facility]03-31-2025 History of Present illness Narrative* Evans Nolan MD - 07/11/2024 11:43 AM EDT [facility] Murphy is a 48 [...] hematuria. She has been referred to a optical glass etcher for dyspnea on exertion. Prior colon evaluations [...] care at [facility] and will go to the ER therefore further evaluation. 3. MUNOZ (dyspnea on exertion) - ICD9: 786.09, ICD10: R06.09 4. Hypoxia - ICD9: 799.02, ICD10: R09.02 Pulse ox confirmed ranging between 91-93 at rest. She denies any past history of hypoxia or asthma.Low suspicion for pneumonia without cough or cold symptoms. Further evaluation for CHF at the ER. Evans Nolan MD History and Record Review Systemic symptoms present included: Chills Differential Diagnoses - Diverticulitis - Infectious gastroenteritis - Hypoxia and abnormal breath sounds; rule out CHF Disposition The patient was other (comment) (Referred to [facility] ER). [facility]* Exam Date Time Procedure Performing Provider Status 11/27/23 2:59 PM Echocardiogram, Adult - CV Auth (Verified) [facility] 07-17-2024 Evaluation + Plan note Future Scheduled Tests Radiology* CT Angiography Chest w/ Contrast 10/28/[address] [facility] 07-17-2024 Hospital Discharge instructions Patient Education [...] or as directed by your healthcare provider [phone] The [employer]. [address] [place] [address]. All rights reserved. This information is not intended as a substitute for professional medical care. Always follow yourhealthcare professional's instructions. Follow Up Care 10/28/2023 09:34:39 With:BERNA HOWELL MD Address: [address] [facility] [place] [address]- When:2-[address] [facility] 07-17-2024 Note Discharge Instructions Thank you for allowing [facility] to assist you with your healthcare needs. The following is importantdischarge information regarding your hospital visit. Diagnosis from Today's Visit Dyspnea What to Do Next Instructions from Your Care Team No qualifying data available. Post Acute Orders No qualifying data available. You Need to Schedule the Following Appointments Follow Up with BERNA HOWELL MD When:Within 2-4 days Where:[address] [facility] [place] [address]- Allergies Bactrim Blisters propofol Anxiety sulfa drugs [...] or as directed by your healthcare provider [phone] The [employer]. [address] [place] [address]. All rights reserved. This information is not intended as a substitute for professional medical care. Always follow yourhealthcare professional's instructions. Additional Information VACCINATE! IT SAVES LIVES! Members of the community who have not yet received the COVID-19 vaccine and would like to receive it can visit one of [facility] vaccine clinics. There are many vaccine clinic locations within the [facility]. For locations and available times, please visit www.gettheshot.coronavirus.[place].gov/. It is important to note that some COVID mobile vaccine clinics are held outdoors and may be canceled in rainy or stormy conditions. To learn more about pediatric vaccinations (ages 5-11), we invite you to visit the [facility] webpage. https://www.[facility].org/pages/2536-Dauvw-Rzsvkdgylqf-Gmoizvsjga-Qoyvy-Vhy stions.htmlTo learn more about the COVID-19 vaccine, we invite you to visit the CDC website for a list of frequently asked questions. https://www.cdc.gov/coronavirus/2019-ncov/vaccines/faq.html [facility] Patient Portal Access Instructions: Stay connected with your healthcare team and access your personal medical information anytime with the [email or web address] Patient Portal. If you would like a full copy of your medical records please contact the [facility] Medical Records Department Thursday through Thursday between 8a.m. and 4:30p.m. Please follow the directions below to access the portal: 1.Access the email account you provided upon registration to the [facility].2.Look for an invitation email from [facility].3.Open the email and access the invitation link: Accept Invitation to [facility]4.Fill in the required de la garza to create your account. Sign into [email or web address] with your username and password that you [...] you will allow to register on the [email or web address] Patient Portal for access to your information. You can also access the [email or web address] Patient Portal on the [employer] jaskaran. Simply click on Health Records under [employer] and then click on the [facility] logo. [...] Call your local pharmacy or go to http://bit.WordRake/7I8Xi8o to find one close to you.3.Make use of household items: Use cat litter or old coffee grounds to dispose medications if other options arenot available. Mix your drugs with these household products, seal them in an airtight container andthrow it into the garbage. [facility]: [phone] to be sure your drugs can be [...] aware that I should contact my doctor. 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07-17-2024 Note ORIGINAL EXAMINATION: CTA OF THE [...] Sign Date: 10/28/2023 10:48:13 AM [facility] Sinus rhythm Prolonged SC interval Electronic Signature: ROMAINE CARR DO 10/28/2023 10:02:04[facility] 03-19-2023 Hospital Discharge instructions Patient Education [...] following occur: Loss of consciousness Vomiting blood [id number] The [employer]. [address] [place] [address]. All rights reserved. This information is not intended as a substitute for professional medical care. Always follow yourhealthcare professional's instructions. Follow Up Care 06/29/2022 11:18:35 With:NENA COSBY Address: [address] [facility] [place] [address] [phone] Business (1) When:2-4 days With:BERNA HOWELL Address: [address] [facility] [place] [address]- Business (1) When:2-[address] [facility] 03-19-2023 Note Discharge Instructions Thank you for allowing [facility] [...] the Following Appointments Follow Up with NENA COSBY When Within 2-4 days Where: [address] [facility] [place] [place] [address]- [phone] Business (1) Follow Up with BERNA HOWELL When Within 2-4 days Where: [address] [facility] [place] [address]- Business (1) Allergies Bactrim (Blisters) propofol (Anxiety) [...] GLYE kol) ClearLax, GaviLAX, Gialax, GlycoLax, MiraLax, [id number], [employer] ClearLax What is the most important [...] may report side effects to FDA at 8-083-USZ-1013. What other drugs will affect polyethylene glycol 3350? Other drugs may interact with polyethylene glycol 3350, including prescription and mhzy-phf-aweypacalywowfqa, vitamins, and herbal products. Tell each of [...] to ensure that the information provided by [employer]. ('[employer]') is accurate, up-to-date, and complete, but no guarantee is made to that effect. Drug information contained herein may be time sensitive. [employer] information has been compiled for use by healthcare practitioners and consumers in the [place] and therefore [employer] does not warrant that uses outside of the [place] are appropriate, unless specifically indicated otherwise. [employer] drug information does not endorse drugs, diagnose patients or recommend therapy. [employer] drug information isan informational resource designed to [...] effective or appropriate for any given patient. [facility] does not assume any responsibility for any aspect of healthcare administered with the aid of information [employer] provides. The information contained herein is not intended to cover all possible uses, directions, precautions, warnings, drug interactions, allergic reactions, or adverse effects. If you have questions about the drugs you are taking, check with your doctor, nurse or pharmacist. Copyright 9839-6187 [employer]. Version: 2.04. Revision Date: 07/16/2016. Education Materials [...] following occur: Loss of consciousness Vomiting blood [phone] The [employer]. [address] [place] [address]. All rights reserved. This information is not intended as a substitute for professional medical care. Always follow yourhealthcare professional's instructions. Additional Information VACCINATE! IT SAVES LIVES! Members of the community who have not yet received the COVID-19 vaccine and would like to receive it can visit one of [facility] vaccine clinics. There are many vaccine clinic locations within the [facility]. For locations and available times, please visit www.gettheshot.coronavirus.[place].gov/. It is important to note that some COVID mobile vaccine clinics are held outdoors and may be canceled in rainy or stormy conditions. To learn more about pediatric vaccinations (ages 5-11), we invite you to visit the [facility] webpage. https://www.[facility].org/pages/1864-Mdshk-Glsgwttgate-Nldbwilnfa-Jvgbe-Lng stions.htmlTo learn more about the COVID-19 vaccine, we invite you to visit the CDC website for a list of frequently asked questions. https://www.cdc.gov/coronavirus/2019-ncov/vaccines/faq.html [facility] Patient Portal Access Instructions: Stay connected with your healthcare team and access your personal medical information anytime with the [facility] Patient Portal. If you would like a full copy of your medical records please contact the [facility] Medical Records Department Thursday through Thursday between 8a.m. and 4:30p.m. Please follow the directions below to access the portal: 1.Access the email account you provided upon registration to the [facility].2.Look for an invitation email from [facility].3.Open the email and access the invitation link: Accept Invitation to [facility]4.Fill in the required de la garza to [...] you will allow to register on the [email or web address] Patient Portal for access to your information. You can also access the [email or web address] Patient Portal on the GroupMe. Simply click on Health Records under [employer] and then click on the [employer] logo. HOW TO SAFELY DISPOSE OF PRESCRIPTION [...] Call your local pharmacy or go to http://bit.WordRake/2O8Pa8t to find one close to you.3.Make use of household items: Use cat litter or old coffee grounds to dispose medications if other options arenot available. Mix your drugs with these household products, seal them in an airtight container andthrow it into the garbage. [facility]: [phone] to be sure your drugs can be [...] aware that I should contact my doctor. 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03-19-2023 Note ORIGINAL EXAMINATION: CT OF THE [...] 06/29/2022 1:06:34 PM Ordering Provider: BYRON DÍAZ [facility]03-19-2023 Note ORIGINAL EXAMINATION: CT OF THE [...] Sign Date: 06/29/2022 1:06:34 PM Ordering Provider: [facility]08-11-2022 Hospital Discharge instructions Patient Education 11/21/2021 16:48:19 [...] foods again, start with small amounts of tdgj-ic-eypdpu, low- fat foods. These include apple sauce, [...] increase stomach acid. Don't use aspirin or xlos-obd-pvkdwnv pain and fever medicines, if possible. This includes nonsteroidal anti-inflammatory drugs (NSAIDs). Lose excess weight. Finish eating at least 2 hours before you go to bed or lie down. Raise the head of your bed. [id number] The [employer]. [address] [place] [address], [place] [address]. All rights reserved. This information is not intended as a substitute for professional medical care. Always follow yourhealthcare professional's instructions. Follow Up Care 11/21/2021 15:11:51 With:BERNA HOWELL MD Address: [address] [place] [address]- When:2-[address] [facility] 08-11-2022 Emergency department Discharge summary Discharge Instructions Thank you for allowing [facility] to assist you with your healthcare needs. The following is importantdischarge information regarding your hospital visit. Diagnosis from Today's Visit Abdominal pain Abdominal pain What to Do Next Instructions from Your Care Team No qualifying data available. Post Acute Orders No qualifying data available. You Need to Schedule the Following Appointments Follow Up with BERNA HOWELL MD When Within 2-4 days Where: [place] [place] [address]- Allergies Bactrim (Blisters) propofol (Anxiety) sulfa drugs Medications Please ask your primary doctor or pharmacist before taking any other medication not listed, including over the counter drugs, herbal medications, vitamins and or supplements as they may interact [facility]. What How Much When [...] foods again, start with small amounts of flnq-on-dogfjh, low- fat foods. These include apple sauce, [...] increase stomach acid. Don't use aspirin or wxfj-yfc-lqyoeny pain and fever medicines, if possible. This includes nonsteroidal anti-inflammatory drugs (NSAIDs). Lose excess weight. Finish eating at least 2 hours before you go to bed or lie down. Raise the head of your bed. [id number] The [employer]. [address] [place] [address]. All rights reserved. This information is not intended as a substitute for professional medical care. Always follow yourhealthcare professional's instructions. Additional Information VACCINATE! IT SAVES LIVES! Members of the community who have not yet received the COVID-19 vaccine and would like to receive it can visit one of [facility] vaccine clinics. There are many vaccine clinic locations within the [facility]. For locations and available times, please visit [email or web address]. It is important to note that some COVID mobile vaccine clinics are held outdoors and may be canceled in rainy orstormy conditions. To learn more about pediatric vaccinations (ages 5-11), we invite you to visit the [facility] webpage. [email or web address] learn more about the COVID-19 vaccine, we invite you to visit the [facility] website for a list of frequently asked questions. [email or web address] [facility] idio Patient Portal Access Instructions: Stay connected with your healthcare team and access your personal medical information anytime with the [email or web address] Patient Portal. If you would like a full copy of your medical records please contact the [facility] Medical Records Department Thursday through Thursday between 8a.m. and 4:30p.m. Please follow the directions below to access the portal: 1.Access the email account you provided upon registration to the [facility].2.Look for an invitation email from [facility].3.Open the email and access the invitation link: Accept Invitation to [email or web address].Fill in the required de la garza to create your account. Sign into www.[email or web address] with your username and password that you [...] you will allow to register on the [email or web address] Patient Portal for access to your information. You can also access the [email or web address] Patient Portal on the [employer] jaskaran. Simply click on Health Records under [employer] and then click on the [place] logo. HOW TO SAFELY DISPOSE OF PRESCRIPTION [...] Call your local pharmacy or go to [email or web address] to find one close to you.3.Make use of household items: Use cat litter or old coffee grounds to dispose medications if other options arenot available. Mix your drugs with these household products, seal them in an airtight container andthrow it into the garbage. [facility]: [phone] to be sure your drugs can be [...] aware that I should contact my doctor. 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: Date/Time: Relationship to Patient: Witness Name/Signature: Date/Time: [facility] [id number] Note ORIGINAL EXAMINATION: CT OF THE ABDOMEN [...] Date: 11/21/2021 4:11:15 PM [facility] Note ORIGINAL EXAMINATION: CT OF THE [...] Date: 11/21/2021 4:11:15 PM Ordering Provider: PHIL [facility]12-03-2021 Hospital Discharge instructions Patient Education 03/15/2021 10:23:25 1-SDS Discharge Instructions Template (01/2018) (CUSTOM) EPHRATA SAME DAY SURGERY DISCHARGE INSTRUCTIONS PLEASE FOLLOW [...] verbal and written orders given by Dr. Cosby.__ BATHING/SHOWERING: ___ Sponge bathe until office visit. [...] us better serve our patients. Form: [id number] [id number]) R: 07/2003/15/2021 10:22:46 9 - AO Minor [...] a slower pace than normal. ?Eat soft, zcpk-iy-odzpwu foods. Take zakr-nbv-eradzbh or prescription medicines only as told by [...] 11/11/2004 Document Revised: 01/20/2018 Document Reviewed: 06/10/2016 [employer] Patient Education 2020 [employer]. Follow Up Care 12/11/2020 08:24:23 With:NENA COSBY MD Address: [id number] When: Unknown Comments:Follow-up as scheduled Follow-up as needed [facility] Consult note Author James Rivera [facility] Note Date/Time December 05, 2024 8: 20am [facility] Medical Records Department [address] [place] [address] Pre-Anesthesia Evaluation 12/05/24 08 MR#: [id number] Acct: [id number] Name: RAIN MURPHY Rep #: [id number] : 1975 49 From: James Rivera MD PCP: Dr. 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 Hx Hospitalization Any Problems With Anesthesia Yes: [...] take am of surgery PONV PONV - paralegal secretary: PONV - paralegal secretary Female Yes 12/01/24 10:35 HX of Motion [...] 12/05/24 07:32 Respiratory Assessment Respiratory Assessment - paralegal secretary: Respiratory Tract Infection Hx - paralegal secretary Hx Respiratory Tract Infection No 12/01/24 10:35 STOP Sleep Apnea STOP Sleep Apnea - paralegal secretary: STOP Sleep Apnea - paralegal secretary Hx Hypertension Yes 12/01/24 10:35 Hx Sleep [...] Tobacco Use History Tobacco Use History - paralegal secretary: Tobacco Use History - paralegal secretary Tobacco Use Smoking Status Never smoker 12/01/24 10:35 Hx Tobacco Use No 12/01/24 10:35 Years Smoking Packs Smoked per Day Smoking Cessation Date was within the last 15 years Hx Smoking Cessation Date Hx Smoking Cessation Counseling Hematologic Medial History Hematologic Hx - paralegal secretary: 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 Specify any problems Hx of Preganancy in last 3 No 12/01/24 10:35 Months Nurse Filling Out [place] [facility] 12/01/24 10:35 & Questions: Date: 12/01/24 12/01/24 10:35 Time: 10:46 12/01/24 10:35 Patient unable to answer at this time (ie. confused, unrespo /Reproduction History /Reproductive History - paralegal secretary: /Reproductive Hx- paralegal secretary Hx Now No 12/01/24 10:35 Gestational Age [...] James Martin> Date _ James Rivera MD Cosign Signature: Date CC: ~ Signed [facility] Work Phone: Consult note Author Talon Parmar [facility] Note Date/Time December 05, 2024 9: 17am [facility] Medical Records Department [address] [place] [address] Anesthesia Postop Eval I 12/05/24915 MR#: [id number] Acct: [id number] Name: RAIN MURPHY Rep #: [id number] : 1975 49 From: Talon Parmar PCP: Dr. Berna Howell MD Status:REG SDC Y Race: C Location: [place] [address] Anesthesia: Postop Eval I Current Vital Signs [...] Talon Parmar > Date _ Talon Parmar Cosigner Signature: Date CC: ~ Signed [facility] Work Phone: Consult note Author James Rivera [facility] Note Date/Time December 05, 2024 9: 53am [facility] Medical Records Department [address] [place] [address] Anesthesia Postop Eval II 12/05/24941 MR#: [id number] Acct: [id number] Name: RAIN MURPHY Rep #: [id number] : 1975 49 From: James Rivera MD PCP: Dr. Berna Howell MD Status:REG [facility] Y Race: C Location: [place] [address] Anesthesia Postop Eval I Sum Postop Eval [...] MD Cosigner Signature: Date CC: ~ Signed [facility] Work Phone: Evaluation + Plan note Future Appointments Appointment Date:06/04/2021 07:30:00 AM Scheduled Provider:BERNA HOWELL MD Location:[facility] Appointment Type:PC OV Controlled Medication Future Scheduled Tests Laboratory* Reticulocytes (AO) 08/17/20 * Ferritin 08/17/20 * Iron Level 08/17/20 * Complete Blood Count 08/17/20 [facility] Evaluation + Plan note Future Appointments Appointment Date:11/29/2021 07:30:00 AM Scheduled Provider:BERNA HOWELL MD Location:[facility] Appointment Type:PC OV Controlled Medication [facility] Evaluation + Plan note Future Appointments Appointment Date:07/09/2022 08:30:00 AM Scheduled Provider:BERNA HOWELL MD Location:[facility] Appointment Type:PC OV Future Scheduled Tests Laboratory* Complete Blood Count 05/15/22 * Lipid Profile 05/15/22 * Vitamin D Level 05/15/22 * Complete Metabolic Panel 05/15/[address] [facility] Evaluation + Plan note Future Appointments Appointment Date:03/16/2023 08:00:00 AM Scheduled Provider: Location:[facility] Appointment Type:PC Nurse Lab Appointment Date:03/26/2023 07:00:00 AM Scheduled Provider:BERNA HOWELL MD Location:[facility] Appointment Type:PC OV Future Scheduled Tests Laboratory* Ferritin 12/26/22 * Iron Level 12/26/22 * Reticulocytes (AO) 12/26/22 * Complete Blood Count 12/26/22 * Reticulocytes - Panel 09/26/22 * Vitamin D Level 12/26/22 * Complete Metabolic Panel 12/26/[address] [facility] Evaluation + Plan note Future Appointments Appointment Date:11/05/2023 07:00:00 AM Scheduled Provider:BERAN HOWELL MD Location:[facility] Appointment Type:PC OV Appointment Date:11/19/2023 07:00:00 AM Scheduled Provider:BERNA HOWELL MD Location:[facility] Appointment Type:PC OV Controlled Medication Future Scheduled Tests Laboratory* Ferritin 12/26/22 * Iron Level 12/26/22 * Reticulocytes (AO) 12/26/22 * Complete Blood Count 12/26/22 * Vitamin D Level 12/26/22 * Complete Metabolic Panel 12/26/22 Radiology* CT Angiography Chest w/ Contrast 10/28/23 * CT Sinus 03/26/[address] [facility] TeliAppaluation + Plan note Future Appointments Appointment Date:12/01/2023 11:30:00 AM Scheduled Provider:BERNA HOWELL MD Location:[facility] Appointment Type:PC OV Future Scheduled Tests Laboratory* Ferritin 12/26/22 * Iron Level 12/26/22 * Complete Blood Count 12/26/22 * Vitamin D Level 12/26/22 * Complete Metabolic Panel 12/26/22 Radiology* CT Angiography Chest w/ Contrast 10/28/23 * CT Sinus 03/26/[address] [facility] TeliAppaluation + Plan note Future Appointments Appointment Date:02/25/2024 07:30:00 AM Scheduled Provider:BERNA HOWELL MD Location:[facility] Appointment Type:PC OV Future Scheduled Tests Radiology* CT Angiography Chest w/ Contrast 10/28/23 * CT Sinus 03/26/[address] [facility] Evaluation + Plan note Future Appointments Appointment Date:08/08/2024 07:00:00 AM Scheduled Provider:Osman Capps PT Location:[facility] Appointment Type:PT Outpatient Evaluation Appointment Date:10/04/2024 07:00:00 AM Scheduled Provider:BERNA HOWELL MD Location:[facility] Appointment Type:PC OV Future Scheduled Tests Laboratory* A1C Hemoglobin 07/28/24 * Complete Blood Count 07/28/24 * Lipid Profile 07/28/24 * Vitamin D Level 07/28/24 * Complete Metabolic Panel 07/28/24 Radiology* CT Angiography Chest w/ Contrast 10/28/[address] [facility] Evaluation + Plan note Future Appointments Appointment Date:10/04/2024 07:00:00 AM Scheduled Provider:BERNA HOWELL MD Location:[facility] Appointment Type:PC OV Future Scheduled Tests Laboratory* A1C Hemoglobin 07/28/24 * Complete Blood Count 07/28/24 * Lipid Profile 07/28/24 * Vitamin D Level 07/28/24 * Complete Metabolic Panel 07/28/24 Radiology* CT Angiography Chest w/ Contrast 10/28/[address] [facility] Evaluation + Plan note Future Appointments Appointment Date:10/04/2024 07:00:00 AM Scheduled Provider:BERNA HOWELL MD Location:[facility] Appointment Type:PC OV Future Scheduled Tests Radiology* CT Angiography Chest w/ Contrast 10/28/[address] [facility] Evaluation note* Diagnosis Abdominal pain, left lower quadrant- Primary History of diverticulosis Personal history of other diseases of digestive system MUNOZ (dyspnea on exertion) Other dyspnea and respiratory abnormality Hypoxia Hypoxemia documented in this encounter [facility] assessment information available[facility] Work Phone: History and physical note Author Jose Friend [facility] Note Date/Time December 05, 2024 8: 06am [facility] Medical Records Department [address] [place] [address] History & Physical Exam 12/05/24 0804 MR#: [id number] Acct: [id number] Name: RAIN MURPHY Rep #: [id number] : 1975 49 From: Jose Pettit DO PCP: Dr. Berna Howell MD Status:[facility] Location: [place] [address] HPI - General General Date of Admission: 12/05/24 Date of Service: 12/05/24 Chief Complaint: Intermittent constipation with abdominal pain followed by occasional nausea vomiting with breakthrough heartburn HPI Narrative RAIN MURPHY, is a 49 F who presents with the Chief Complaint: constipation and abdominal pain [facility] ED 6.2.25 wiht LLQ pain. Pt with [...] a dayand has breakbothoura heartburn on occasion. [facility] Medical History H/O psoriasis Post-menopausal Wears glasses [...] GERD (gastroesophageal reflux disease): Status: Acute 12/05/24 0806 <Electronically signed by Jose Pettit DO> Cosigner Signature (if applicable): CC: Dr. Berna Howell MD; Jose Pettit DO~ Signed [facility] Work Phone: Hospital course Narrative No data available for this section [facility] Hospital Discharge instructions No data available for this section [facility] Progress note No data available for this section [facility] Progress note Author Grace Argueta [facility] Note Date/Time January 04, 2025 10:38am [facility] [address] [place] [address] Carrie. [address] [place] [address] OFFICE VISIT Date of Service: 01/04/25 MR#: [id number] Acct: [id number] Name: RAIN MURPHY Rep #: [id number] : 1975 Provider: Dr. Jean Argueta MD Age/Sex: 49/F Location: [facility] Status: Signed HPI HPI History of Present Illness Details: Patient is a pleasant 49-year-old white female that comes in today for a new patient visit. She is referred for shortness of breath and dyspnea on exertion. The patient carries a history of obesity hyperlipidemia rheumatoid arthritis and hypertension. She also has a strong family history of father and brother with coronary disease at an early age. She has never smoked and she is not diabetic. The patient is currently undergoing sleep apnea evaluation. The patient reportsthat she has been short of breath with climbing stairs for about a year. She isnoted this at a previous job and was evaluated back in November 2023 with a echocardiogram which showed normal LV size and function EF of 60-65% there was no wall motion abnormality and normal diastolic function. The aortic valve was thickened consistent with sclerosis with no stenosis right ventricular systolic pressure was mildly increased at 40 mmHg the right atrium estimated right atrialpressure was 3. The patient had a CTA done October 2023 showed small areas of lingular and left lower lobe atelectasis no evidence of pulmonary emboli. Therewas no evidence or changes consistent with rheumatoid disease noted on the CT either. Patient's ECG in office today shows sinus rhythm with a first-degree AV block low voltage QRS consistent with her body habitus and nonspecific minor ST changes. The patient has never had a stress test done. Her lipids are elevated with LDL of 139. Intake Vital Signs 12/05/24 07:32 01/04/25 09:59 Height 5 ft 1 in 5 ft 1.5 in Weight: 311 lb BMI 57.8 BP 101/70 Blood Pressure Location Lt brachial Position Sitting Respiration 18 Pulse 71 Pulse Source Monitor Pulse Oximetry (%) 94 Oxygen Delivery Method room air Intake Visit Reasons: SOB/FAM HX (SELF) Charger Tester Required: No Accompanied by: Self Is patient in pain?: No Allergies Sulfa (Sulfonamide Antibiotics) Allergy (Verified 01/04/25 09:59) NEEDS FOLLOW-UP sulfamethoxazole (From Bactrim) Allergy (Verified 01/04/25 09:59) NEEDS FOLLOW-UP trimethoprim (From Bactrim) Allergy (Verified 01/04/25 09:59) NEEDS FOLLOW-UP Medications ?Medication ?Instructions ?Recorded ?Confirmed ?Type cholecalciferol (vitamin D3) 1,250 1,250 mcg PO QWEEK 10/13/24 01/04/25 History mcg (50,000 unit) capsule clonazepam 1 mg tablet 1 mg PO 4X/DAY PRN anxiety 0 10/13/24 12/20/24 History dicyclomine 20 mg tablet 20 mg PO TID PRN abdominal p ain 10/13/24 12/20/24 History escitalopram oxalate 20 mg tablet 20 mg PO QDAY 12/20/24 History hydroxychloroquine 200 mg tablet 200 mg PO BID 5 12/20/24 History metoprolol tartrate 25 mg tablet 25 mg PO BID 10/13/24 12/20/24 History pantoprazole 40 mg tablet,delayed 40 mg PO BID 5 12/20/24 History release famotidine 40 mg tablet 40 mg PO QDAY #30 tabs 12/2001/04/25 Rx Ejection fraction %: 63 Have you fallen in the past year?: No PFSH Medical History Hyperlipidemia Syncope H/O psoriasis Post-menopausal Wears glasses Depression Anxiety Bruising History of steroid therapy Rheumatoid arthritis DVT (deep venous thrombosis) Easy bruising Migraine headache H/O hemorrhoids History of IBS History of diverticulitis Gastric reflux Shortness of breath on exertion History of echocardiogram Hypertension Surgical History History of surgery History of nasal septoplasty History of cholecystectomy History of carpal tunnel release of both wrists Family History Father Dementia Depression Hypertension Hypercholesterolemia Brother Hypertension Hypercholesterolemia Social History Smoking Status: Never smoker alcohol intake: never substance use type: does not use caffeine: Yes ROS Const Const: Positive for fatigue; Negative for weakness ENT ENT: Negative for dizziness or balance problems Cardio Chest Pain: Yes Palpitations: No Edema: None Muscle aches with walking: None Resp Respiratory: Positive for SOB with activity; Negative for SOB at rest or SOB orthopnea\SOB lying down GI GI: Positive for heartburn and bright, red blood in stools; Negative nausea or vomiting Musc Musc: Negative for muscle weakness or balance problems Neuro Neuro: Negative for dizziness, lightheadedness, near syncope, syncope or weakness Endo Endo: Positive for fatigue Cardiology Exam Const Appearance: cooperative, comfortable and no acute distress Nutritional Appearance: obese Head Head: normal to inspection Eyes General: appearance normal, both eyes and all related structures Neck Neck: normal visual inspection and no JVD Carotids: Negative bruit Chest Chest inspection: other (Increased AP diameter) Auscultation: Bilateral: Clear to Auscultation Cardio Rate: regular rate Rhythm: regular rhythm Heart sounds: S1 normal and S2 normal; Negative rub, gallop or murmur Distant heart tones due to increased AP diameter and body habitus. GI GI: obese Neuro General: patient alert and patient oriented x3 Extremities Lower Extremity Edema: None: Bilateral (Bilateral large legs with no pitting edema) Psych Psychological: normal affect Supplemental Info Supplemental Information Past Visits: Cardiology Visit Today Assessment and Plan Assessment and Plan (1) Shortness of breath on exertion: Status: Acute Plan: Patient shortness of breath is primarily dyspnea on exertion. It is primarily with walking an incline or stairs but she does get short of breath when she walks for a long period of time. She is trying to walk on a routine basis and has lost 40 pounds over the last several months. The patient's dyspnea on exertion and shortness of breath appear to be multifactorial. She is being evaluated for obstructive sleep apnea. She is morbidly obese. And she has an orthopedic issue with her knee limiting her ability to ambulate for significant amount of time. The patient's echocardiogram did not show any significant structural heart disease within the past year. She has never been evaluated for ischemia she does have a significant family history she is hypertensive and hyperlipidemic. I would recommend we obtain a pharmacologic nuclear stress test. Will also obtain PFTs. (2) Hypertension: Status: Chronic Qualifiers: Hypertension type: primary hypertension Qualified Code(s): I10 - Essential (primary) hypertension Comment: CONTROLLED WITH MED Plan: Patient's blood pressure is well-controlled on her current medical therapy she is on metoprolol to tartrate 25 mg twice daily. (3) Hyperlipidemia: Status: Acute Qualifiers: Hyperlipidemia type: pure hypercholesterolemia Qualified Code(s): E78.00 - Pure hypercholesterolemia, unspecified Plan: Patient's lipids are elevated with an LDL of 139, HDL 40, total cholesterol 198,triglycerides 94. This was September 2024. Given the patient's family history I would recommend a trial of statin therapy. At this point in time I have deferred initiating statin therapy as she is aggressively trying to lose weight. If the stress test shows a hint of ischemia would recommend adding statin therapy. Would also recommend aggressive weight loss and I did discuss with herthe possibility of utilizing some of the newer weight loss medications if financially available to her. She believes her hemoglobin A1c was 5.2 the last time it was checked. I have asked her to follow-up with her primary care physician for further long- term management of her lipids as well as aggressive management and assistance with her weight loss. Orders: Orders 12 Lead EKG performed by [facility] Today R06.02 - Shortness of breath Nuclear Stress Test - Chemical 3 Weeks R06.02 - Shortness of breath PFT Complete - DLCO, Spirometry b/a bronchodilators, lung volumes 2 Weeks R06.02 - Shortness of breath Plan 1. Nuclear pharmacologic stress test and PFTs to evaluate shortness of breath and dyspnea on exertion. 2. Recommend the patient continue evaluation for obstructive sleep apnea and institute treatments as indicated. 3. Recommend the patient follow-up with the primary service for long-term management of her cardiovascular risk factors. 4. We will follow-up by phone with the patient with results of the testing. 5. Patient be reevaluated in 6 months in the office with advanced practitioner. Plan Details Additional Comments: Thank you for allowing me to participate in the care of your patient. Please don't hesitate to call if any issues arise. This note was generated using a voice recognition system and there may be incorrect words, spelling, or punctuation that were not noted when reviewing theoffice note prior to saving. Portions of this documentation were copied and pasted from previous office visitnotes to provide a cohesive continuity of the history. The note has been reviewed, edited, and updated, as necessary. Follow Up: 6 Months (With JASKARAN and as needed) Coding Level of Care Code Off vis,new,level 3 Diagnoses Shortness of breath on exertion R06.02 Primary hypertension I10 Hypertension type: primary hypertension Pure hypercholesterolemia E78.00 Hyperlipidemia type: pure hypercholesterolemia Coding Level of Care Code Off vis,new,level 3 Diagnoses Shortness of breath on exertion R06.02 Primary hypertension I10 Hypertension type: primary hypertension Pure hypercholesterolemia E78.00 Hyperlipidemia type: pure hypercholesterolemia Clinical Quality Measures Falls Risk Screening/Assistive Devices Have you fallen in the past year?: No Cardiac Ejection fraction %: 63 01/04/25 1045 <Electronically signed by Grace patel MD> Date _ Grace Argueta MD Cosigner Signature: Date (if applicable) CC: Dr. Berna Howell MD ~ [facility] Work Phone: Reason for referral (narrative)No reason for referral information [facility] Work Phone: Summary Purpose Family History No Family History Records Found Relationship Condition Age at Onset Recorded Date/T ruchi father Dementia Unknown Depression Unknown Hypertension Unknown Hypercholesterolemia Unknown brother Hypertension Unknown Advance Directives No Advanced Directives Records Found Advance Directive Response Recorded Date/ Time Do you have a Healthcare Power of Client Technologies Specialist? No December 01, 2024 10:35am Chief Complaint and Reason for Visit Chief Complaint Admit Date CONSTIPATED NAUSEA CRAMPING VOMITING Oct 7:16am Reason for Visit Admit Date Constipation October 13, 2024 7:16a m GERD (gastroesophageal reflux disease) J 2024 7:16am Hx of colonic polyps October 13, 2024 7:16 am Constipation December 05, 2024 7: 08am GERD (gastroesophageal reflux disease) A 2024 7:08am Hx of colonic polyps December [...] :08am Esophageal varices December 20, 2024 7:36am Chief Complaint Admit Date CONSTIPATED NAUSEA CRAMPING VOMITING Adrian 2024 7:16am TEST December 20, 2024 7:36am Esophageal varices without bleeding Sept ember 2024 7:25am SOB/FAM HX (SELF) January 04, 2025 9:55am Reason for Visit Admit Date Constipation October 13, 2024 7:16a m GERD (gastroesophageal reflux disease) J sridevi 2024 7:16am Hx of colonic polyps October 13, 2024 7:16 am Constipation December 05, 2024 7: 08am GERD (gastroesophageal reflux disease) A ugust 2024 7:08am Hx of colonic polyps December 05, 2024 7 :08am Constipation December 20, 2024 7:36am Esophageal varices December 20, 2024 7:36am GERD (gastroesophageal reflux disease) S eptember 2024 7:36am Hyperlipidemia January 04, 2025 9:55am Shortness of breath on exertion Decembe r 2024 9:55am Hypertension January 04, 2025 9:55am Additional Source Comments INFORMATION SOURCE (unrecogn ized section and content) DATE CREATED AUTHOR 07/25/2021 [facility] DATE CREATED AUTHOR AUTHOR'S ORGANIZ ATION 11/29/2023 [facility] [place] ([place]) DATE CREATED AUTHOR AUTHOR'S ORGANIZ ATION 07/12/2024 [facility] DATE CREATED AUTHOR AUTHOR'S ORGANIZ ATION 12/19/2024 [facility] DATE CREATED AUTHOR AUTHOR'S ORGANIZ ATION [facility] Care Team (unrecognized sect ion and content) Care Team Personnel Name: Storm Garcia Clerduke Evans PT Position: P3 Scheduling - Burling And Joining Supervisor Advanced Member Role: Other Name: BERNA HOWELL MD Position: P4 Physician - Primary Care Med Service: Active Provider Member Role: Primary Care Physician Address: Address: [address] [place] [id number] [place] Care Team Related Persons Name: NONE, Name: NA MURPHY Name: DOMINIQUE MURPHY Address: [address] [id number] Name: DOMINIQUE MURPHY Address: [address] [phone] [place] Name: DOMINIQUE MURPHY Address: [address] [phone] Name: DOMINIQUE MURPHY Address: [address] [phone] Patient Care team informatio n (unrecognized section and content) Museum Archivist Relationship Specialty Start Date End Date Beran Howell MD [address] [place] [address] [place] [address] PCP - General 12/17/05 Team Status: Active Member Role/Relationship Status Dates Dr. Berna Howell MD Family Provider Active Dr. Berna Howell MD Primary Care Provider Active Team Status: Inactive Member Role/Relationship Status Dates Dr. Berna Howell MD Primary Care Provider Active Start: October 13, 2024 End: October 13, 2024 Dr. Berna Howell MD Referring Provider Active Start: October 13, 2024 End: October 13, 2024 [place] Attending Provider Active Start: October 13, 2024 End: October 13, 2024 Team Status: Active Member Role/Relationship Status Dates Dr. Berna Howell MD Primary Care Provider Active Team Status: Inactive Member Role/Relationship Status Dates Dr. Berna Howell MD Primary Care Provider Active Start: December 05, 2024 End: December 05, 2024 Dr. Berna Howell MD Referring Provider Active Start: December 05, 2024 End: December 05, 2024 Dr. Jose Pettit DO Attending Provider Active Start: December 05, 2024 End: December 05, 2024 Team Status: Active Member Role/Relationship Status Dates Dr. Berna Howell MD Primary Care Provider Active Start: December 05, 2024 Dr. Berna Howell MD Referring Provider Active Start: December 05, 2024 Dr. Jose Pettit DO Attending Provider Active Start: December 05, 2024 Dr. Jose Pettit DO Other Provider Active St art: December 05, 2024 Team Status: Inactive Member Role/Relationship Status Dates Dr. Berna Howell MD Primary Care Provider Active Start: December 20, 2024 End: December 20, 2024 Dr. Berna Howell MD Referring Provider Active Start: December 20, 2024 End: December 20, 2024 [place] Attending Provider Active Start: December 20, 2024 End: December 20, 2024 Team Status: Active Member Role/Relationship Status Dates Dr. Berna Howell MD Primary care physician Active Team Status: Inactive Member Role/Relationship Status Dates Dr. Berna Howell MD Primary care physician Active Start: October 13, 2024 End: October 13, 2024 Dr. Berna Howell MD Referring Provider Active Start: October 13, 2024 End: October 13, 2024 [place] Attending physician Active Start: October 13, 2024 End: October 13, 2024 Team Status: Inactive Member Role/Relationship Status Dates Dr. Berna Howell MD Primary care physician Active Start: December 05, 2024 End: December 05, 2024 Dr. Berna Howell MD Referring Provider Active Start: December 05, 2024 End: December 05, 2024 Dr. Jose Pettit DO Attending physician Active Start: December 05, 2024 End: December 05, 2024 Team Status: Active Member Role/Relationship Status Dates Dr. Berna Howell MD Primary care physician Active Start: December 05, 2024 Dr. Berna Howell MD Referring Provider Active Start: December 05, 2024 Dr. Jose Pettit DO Attending physician Active Start: December 05, 2024 Dr. Jose Pettit DO Nurse Practitioner Active Start: December 05, 2024 Team Status: Inactive Member Role/Relationship Status Dates Dr. Berna Howell MD Primary care physician Active Start: December 20, 2024 End: December 20, 2024 Dr. Berna Howell MD Referring Provider Active Start: December 20, 2024 End: December 20, 2024 [place] Attending physician Active Start: December 20, 2024 End: December 20, 2024 Team Status: Active Member Role/Relationship Status Dates Dr. Berna Howell MD Primary care physician Active Start: January 03, 2025 [place] Attending physician Active Start: January 03, 2025 [place] Referring Provider Active Start: January 03, 2025 Team Status: Inactive Member Role/Relationship Status Dates Dr. Berna Howell MD Primary care physician Active Start: January 04, 2025 End: January 04, 2025 Dr. Berna Howell MD Referring Provider Active Start: January 04, 2025 End: January 04, 2025 Dr. Grace Argueta MD Attending physician Active Start: January 04, 2025 End: January 04, 2025 Team Status: Inactive Member Role/Relationship Status Dates Dr. Berna Howell MD Primary care physician Active Start: January 03, 2025 End: January 03, 2025 [place] Attending physician Active Start: January 03, 2025 End: January 03, 2025 [place] Referring Provider Active Start: January 03, 2025 End: January 03, 2025 Source Comments (unrecognize d section and content) In the event this informatio n is protected by the Federal Confidentiality of Alcohol and Drug Abuse Patient Records regulations: The Federal rules restrict any use of the information to criminally investigate or prosecute any alcohol or drug abuse patient.[facility] Reason for Visit (unrecogniz ed section [...] BE BASED ON THE PRIMARY CLINICAL RECORDS. [facility] [facility] provides no warranty or guarantee of the accuracy or completeness of information in this document.
--- OUTSIDE RECORDS SUMMARY | 2025-01-30 06:55 | XMS RPT_ITS | CCD ---
Author Organization [facility] Care Team Providers Care Salvage Winder And Inspector Name Role Phone BERNA HOWELL MD Primary Care Physician Radha PT, [...] Berna Howell MD Primary Care Provider [phone] Dr. Berna Howell MD Referring Provider [phone] Peace Gibbs Attending Provider Dr. Jose Pettit DO Attending Provider Dr. Jose Pettit DO Other Provider [phone] BERNA HOWELL MD Primary Care Unavailable BERNA [...] STOKES, BERNA Martin Primary Care Unavailable [employer] LIEUTENANT-TRANSIT OPERATIONS SUPERVISOR, PEACE Attending Unavail able [employer] MELENDEZTRANSIT OPERATIONS SUPERVISOR, PEACE Attending Unavail able BERNA HOWELL MD Primary Care Unavailable DANTE STOKES, BERNA Martin Primary Care Unavailable BERNA HOWELL MD Attending Unavailable DANTE STOKES, BERNA Martin Primary Care Unavailable BERNA HOWELL MD Attending Unavailable Dante STOKES, Dr. Huff Primary Care Physician [phone] Peace Gibbs Attending Physician [phone] Wilver JACOBS, Dr. Garcia Attending Physician [phone] Friend , Dr. Garcia Nurse Practitioner Peace Gibbs Referring Provider [phone] Kendall STOKES, Dr. Levy Attending Physician [phone] Peace Beaver Attending Unavailable Peace Beaver Referring [...] 07-12-19 Anxiety (finding), Intolerance, Other: See Comments [facility] Comment on above: extreme restlessness (15 sources) Sulfamethoxazole / Trimethoprim; Translations: [sulfamethoxazole-t rimethoprim] Drug Allergy 07-12-19 Other: See Comments [facility] (14 sources) Sulfonamides (Antibiotic); Translations: [sulfa drugs] Drug allergy [facility] Comment on above: blood blisters (2 sources) Sulfonamides (Antibiotic); Translations: [SULFA (SULFONAMIDE ANTIBIOTICS)] Drug Allergy 05-29-19 Rash, Unknown [facility] (1 source) Propofol; Translations: [PROPOFOL ANALOGUES] Propensity to adverse reactions to drug (disorder) 07-12-19 [facility] Repository (1 source) Sulfamethoxazole / Trimethoprim; Translations: [SULFAMETHOXAZOLE-T RIMETHOPRIM] Drug Allergy 07-12-19 [facility] Repository (5 sources) Sulfamethoxazole Drug Allergy 10-14-19 NEEDS FOLLOW-UP [facility] (5 sources) Sulfonamides (Antibiotic) Allergy to substance 10-14-19 NEEDS FOLLOW-UP [facility] (5 sources) Trimethoprim Drug Allergy 10-14-19 NEEDS FOLLOW-UP [facility] (1 source) Sulfamethoxazole Drug Allergy 01-05-20 [facility] Repository (1 source) Sulfonamides (Antibiotic) Drug allergy (disorder) 01-05-20 [facility] Repository (1 source) Trimethoprim Drug Allergy 01-05-20 [facility] Repository Medications Current Medications Medication Drug [...] headache, # 30 cap(s), 1 Refill(s), Pharmacy: [facility] #[id number], Benign essential hypertension Chronic migraine without aura, [...] wheezing, # 1,080 mL, 3 Refill(s), Pharmacy: [facility] #[id number], Benign essential hypertension, 158, cm, 11/05/23 7:04:00 [...] wheezing, # 90 mL, 0 Refill(s), Pharmacy: [facility] #[id number], Benign essential hypertension, 159, cm, 09/26/22 7:30:00 [...] 0 Refill(s), 01/16/23 8:41:00 AM EDT, Pharmacy: [facility] #[id number], Chronic sinusitis Iron deficiency anemia, 159, cm, [...] QID, # 360 tab(s), 0 Refill(s), Pharmacy: [facility] #[id number], Anxiety, 158, cm, 11/05/23 7:04:00 EDT, Height, 154.8, kg, 11/05/23 7:04:00 EDT, Dosing Weight Start Date: 11/25/23 Stop Date: 02/23/24 Status: Ordered Start: 05-30-2022 End: 02-17-2023 clonazePAM 1 mg oral tablet Dose : 1 mg = 1 tab(s), Oral, TID, as needed, # 270 tab(s), 0 Refill(s), Pharmacy: [facility] #[id number], Anxiety, 159, cm, 09/26/22 7:30:00 EDT, Height, [...] TID, # 90 tab(s), 1 Refill(s), Pharmacy: [facility] #[id number], Benign essential hypertension Acute sinusitis, 158, cm, [...] 90 tab(s), 1 Refill(s), Pharmacy: [facility] #[id number], Benign essential hypertension Acute sinusitis, 158, cm, 05/21/23 7:03:00 EST, Height, kg, 05/21/23 7:03:00 EST, Dosing Weight Start Date: 05/21/23 Stop Date: 07/20/23 Status: Ordered Start: 08-28-2022 End: 11-25-2022 dicyclomine 20 mg oral table t Dose : 20 mg = 1 tab(s), Oral, TID, # 90 tab(s), 1 Refill(s), Pharmacy: [facility] #[id number], Benign essential hypertension Acute sinusitis, 159, cm, 09/26/22 7:30:00 EDT, Height, kg, 09/26/22 7:30:00 EDT, Dosing Weight Start Date: 09/26/22 Stop Date: 11/25/22 Status: Ordered Start: 05-30-2022 End: 07-29-2022 dicyclomine 20 mg oral table t Dose : 20 mg = 1 tab(s), Oral, TID, # 90 tab(s), 1 Refill(s), Pharmacy: [facility] #[id number], Benign essential hypertension Acute sinusitis, 158.6, cm, 05/30/22 7:30:00 EST, Height Start Date: 05/30/22 Stop Date: 07/29/22 Status: Ordered Start: 11-12-2021 dicyclomine 10 mg oral capsule Dose : 10 mg = 1 cap(s), Oral, QID, PRN abdominal discomfort, # 120 cap(s), 0 Refill(s), Pharmacy: [facility] #[id number], 160, cm, 06/04/21 7:27:00 EST, Height Start [...] Daily, # 90 tab(s), 3 Refill(s), Pharmacy: [facility] #[id number], Depression, major, recurrent, in remission, 158, cm, [...] qDay, # 30 tab(s), 0 Refill(s), Pharmacy: [facility] #[id number], 158, cm, 12/01/23 11:29:00 EDT, Height, kg, [...] # 90 tab(s), 3 Refill(s), Pharmacy: [facility], 158, cm, 12/03/20 10:06:00 [...] BID, # 180 tab(s), 3 Refill(s), Pharmacy: [facility] #[id number], 158, cm, 11/05/23 7:04:00 EDT, Height, kg, [...] BID, # 60 tab(s), 5 Refill(s), Pharmacy: [facility] #[id number], 160, cm, 06/04/21 7:27:00 EST, Height, kg, 06/04/21 7:27:00 EST, Dosing Weight Start Date: 11/12/21 Stop Date: 05/11/22 Status: Ordered phentermine hydrochloride 37.5 mg oral tablet (3 sources) Sympathomimetic Amine Anorectic Start: 10-23-2023 End: 02-23-2024 phentermine 37.5 mg oral tablet Dose : 37.5 mg = 1 tab(s), Oral, qAM, X 30 day(s), # 30 tab(s), 2 Refill(s), 02/23/24 7:35:00 AM EST, Pharmacy: [facility] #[id number], Morbid obesity with body mass index of 50 or higher, 158, cm, 11/05/23 7:04:00 EDT, Height, 154.8, kg, 11/05/23 7:04:00 EDT, Dosing Weight Start Date: 11/25/23 Stop Date: 02/23/24 Status: Ordered polyethylene glycol 3350 03833 mg powder for oral solution (1 source) [...] qWeek, # 13 cap(s), 3 Refill(s), Pharmacy: [facility] #[id number], Benign essential hypertension, 158, cm, 11/05/23 7:04:00 EDT, Height, kg, 11/05/23 7:04:00 EDT, Dosing Weight Start Date: 11/25/23 Stop Date: 11/19/24 Status: Ordered Quantity: 13.0 Unit: cap(s) Repeat number: 4 Indications: Essential (primary) hypertension; Start: 11-25-2023 End: 11-19-2024 Vitamin D3 1250 mcg (50,000 intl units) oral capsule Dose : 1,250 mcg = 1 cap(s), Oral, qWeek, # 13 cap(s), 3 Refill(s), Pharmacy: [facility] #[id number], Benign essential hypertension, 158, cm, 11/05/23 7:04:00 EDT, Height, kg, 11/05/23 7:04:00 EDT, Dosing Weight Start Date: 11/25/23 Stop Date: 11/19/24 Status: Ordered Start: 09-26-2022 End: 09-21-2023 Vitamin D3 1250 mcg (50,000 intl units) oral capsule Dose : 1,250 mcg = 1 cap(s), Oral, qWeek, # 13 cap(s), 3 Refill(s), Pharmacy: [facility] #[id number], Benign essential hypertension, 159, cm, 09/26/22 7:30:00 [...] 0 Refill(s), DVT Treatment Dosing, Pharmacy: [facility] #[id number], 158, cm, 10/23/23 9:04:00 EDT, Height, 156, kg, 10/23/23 9:04:00 EDT, Dosing Weight Start Date: 10/28/23 Stop Date: 11/27/23 Status: Ordered ferrous gluconate 324 mg oral tablet (8 sources) Start: 10-23-2023 End: 05-23-2024 ferrous gluconate 324 mg (38 mg elemental iron) oral tablet Dose : 324 mg = 1 tab(s), Oral, BID, # 180 tab(s), 1 Refill(s), Pharmacy: [facility] #[id number], Chronic sinusitis Iron deficiency anemia, 158, cm, [...] 180 tab(s), 1 Refill(s), Pharmacy: [facility] #[id number], Chronic sinusitis Iron deficiency anemia, 159, cm, [...] Facility Cardiology Visit Reporton Cardiology Visit Report [facility] [place] [id number] [facility] [place] [address] OFFICE VISIT Date of Service: 01/04/25 MR#: [id number] Acct: [id number] Name: RAIN MURPHY Rep #: [id number] : 1975 Provider: Dr. Grace grissom MD Age/Sex: 49/F Location: [facility] Status: Signed HPI HPI History of Present [...] air Intake Visit Reasons: SOB/FAM HX (SELF) Head Of Product Required: No Accompanied by: Self Is patient [...] for musc (more content not included)... Normal [facility] ABD Limited w/ Elastographyo n 01-03-2025 ABD Limited w/ Elastography [facility] Imaging Services [address] [place] [address] ABD Limited w/ Elastography MR#: [id number] Acct: [id number] Name: RAIN MURPHY Rep #: [id number] : 1975 F 49 From: Doe Champion MD PCP: Dr. Berna Howell MD Status: REG CLI Study: ABD Limited w/ Elastography Date of Exam: 12/13 07/05 Exam# [id number] Ordering Dr: Peace Beaver PROCEDURE: ABD LIMITED W/ ELASTOGRAPHY, 01/03/2025 REASON FOR EXAM: ESOPHAGEAL VARICES COMPARISON: None TECHNIQUE: Grayscale and color Doppler imaging of the right upper quadrant was performed. Elastography was performed for non-invasive assessment of liver tissue stiffness utilizing a [email or web address] S-shear wave imaging unit. FINDINGS: Liver: Slightly [...] (15kPa): Significant fibrosis / cirrhosis Reading Location: [id number] CC: Dr. Berna Howell MD; HECTOR Bay Is Consultant: Signed Normal [facility] Gastroenterology Visit Repor ton 12-20-2024 Gastroenterology Visit Report [facility] Gastroenterology [address] [place] [address] OFFICE VISIT Date of Service: 12/20/24 MR#: [id number] Acct: [id number] Name: RAIN MURPHY Rep #: [id number] : 1975 Provider: HECTOR Bay Age/Sex: 49/F Location: [facility] Status: Signed Intake Vital Signs 03/13/20 00:08 [...] Plan (1) (more content not included)... Normal [facility] Relationship Consultant Cytology Reporton 2024 Relationship Consultant Cytology Report . Pathology Reports Accession: Collected Date/Time: Received Date/Time: Pathologist: [id number] 12/13/2024 09:23 EDT 12/13/2024 18:00 EDT Relationship Consultant Cytology Report SPECIMEN: Specimen Description: Liquid Prep w/ HPV Specimen: Cervical Screening or Diagnostic: Screening RELEVANT HISTORY: LMP: postmenopausal SPECIMEN ADEQUACY: SATISFACTORY FOR EVALUATION Endocervical/Transformational zone component present INTERPRETATION/RESULTS: NEGATIVE FOR INTRAEPITHELIAL LESION OR MALIGNANCY HIGH RISK HPV TESTING: HPV Screen Only, BRITTON Probe Negative HPV Screen Only, BRITTON Probe Interp Data: Molecular methodology performed on the [employer] [facility]. The APTIMA HPV Screening Assay is [...] and evaluated with the assistance of the [employer] Thin[employer] Test Imaging System. Verified by Pathology report verified by [facility] Screened by: AKOSUA Electronically signed by Kimber MIN (ASC) Sign-Out Date: 12/16/2024 12:08 Performing Lab: [facility], [address] [place] [address] Pathology Dept Pathology Reports Accession: Collected Date/Time: Received Date/Time: Pathologist: [id number] 12/13/2024 09:23 EDT 12/13/2024 18:00 EDT Disclaimer The Pap test is a screening test for cervical cancer. As evidenced by published data, it is subject to both inherent false negative and false positive results. Your patient's results should be interpreted in context with pertinent clinical history including gynecological examination. Normal [facility] US PELVIS NON-OB W/TRANSVAGI NALon 12-16-2024 [...] 12/16/2024 9:25:41 AM Ordering Provider: PEACE LEUNG [facility] BVPCRon 12-14-2024 Bacterial Vaginosis Negative Normal Negative [facility] Comment on above: Result Comment: Mole cular methodology performed on the [employer] [place] System. Performed By: #### A HEATHER DECKER, CMP, GFR, CBC, ADIFF, LIP #### [place] [address] CTVAGon 12-14-2024 Chlam Source Vaginal Normal [facility] Comment on above: Performed By: #### A HEATHER DECKER, CMP, GFR, CBC, ADIFF, LIP #### [place] [address] Chlamydia Trachomatis, TMA Negative Normal Negative [facility] Comment on above: Result Comment: Mole cular methodology performed on the [employer] [place] System. Performed By: #### A HEATHER DECKER, ELEANOR, GFR, CBC, ADIFF, LIP #### [place] [address] CVTVon 12-14-2024 Natacha glabrata Negative Normal Negative [facility] Comment on above: Performed By: #### A HEATHER DECKER, CMP, GFR, CBC, ADIFF, LIP #### [place] [address] Natacha Species Negative Normal Negative [facility] Comment on above: Result Comment: Mole cular methodology performed on the [employer] [place] System. Performed By: #### A HEATHER DECKER, CMP, GFR, CBC, ADIFF, LIP #### [address] [address] Trichomonas vaginalis Negative Normal Negative [facility] Comment on above: Performed By: #### A HEATHER DECKER, CMP, GFR, CBC, ADIFF, LIP #### [address] [address] GCVAGon 12-14-2024 GC PCR Source Vaginal Normal [facility] Comment on above: Performed By: #### A HEATHER DECKER, CMP, GFR, CBC, ADIFF, LIP #### [address] [address] Neisseria gonorrhoeae, TMA Negative Normal Negative [facility] Comment on above: Result Comment: Mole cular methodology performed on the [employer] [facility]. Performed By: #### A HEATHER DECKER, CMP, GFR, CBC, ADIFF, LIP #### [address] [address] HPVSCon 12-14-2024 HPV Source Cervix Normal [facility] Comment on above: Order Comment: Order placed by AP_HPV_ORDER rule from [id number] Performed By: #### A HEATHER DECKER, ELEANOR, GFR, CBC, ADIFF, LIP #### [address] [address] HPV Screen Only, BRITTON Probe Negative Normal Negative [facility] Comment on above: Order Comment: Order placed by AP_HPV_ORDER rule from [id number] Result Comment: Mole cular methodology performed on the [employer] [facility]. The APTIMA HPV Screening Assay is [...] MDW, CMP, GFR, CBC, ADIFF, LIP #### [facility] [address] [place], [place] [address] Relationship Consultant Cytology Reporton 2024 Relationship Consultant Cytology Report Event Display: GY Co mment This Pap Test was successfully processed and evaluated with the assistance of the [employer] ThinPrep Test Imaging System. PAKO Linda (ASCP) Kimber:VERIFY; Authored Date: [facility] Work Phone: Relationship Consultant Cytology Report Event Display: GY Si gnature Pathology report verified by [facility] Screened by: KS Electronically signed by Kimber MIN (ASCP) Sign-Out Date: 12/16/2024 12:08 Performing Lab: [facility], [address] [place] [address] Pathology Dept PAKO LindaASCP) Kimber:VERIFY; Authored Date: [facility] Work Phone: Relationship Consultant Cytology Report Event Display: GY Sp ecimen Specimen Description: Liquid Prep w/ HPV Specimen: Cervical Screening or Diagnostic: Screening PAKO Linda (ASCP) Kimber:VERIFY; Authored Date: [facility] Work Phone: Relationship Consultant Cytology Report Event Display: GY Cl in Info LMP: postmenopausal PAKO Linda (ASCP) Kimber:VERIFY; Authored Date: [facility] Work Phone: Relationship Consultant Cytology Report Event Display: GY In terp Dx NEGATIVE FOR INTRAEPITHELIAL LESION OR MALIGNANCY PAKO Linda (ASCP) Kimber:VERIFY; Authored Date: [facility] Work Phone: Relationship Consultant Cytology Report Event Display: SURINDER Elliott The Pap test is a screening test for cervical cancer. As evidenced by published data, it is subject to both inherent false negative and false positive results. Your patient's results should be interpreted in context with pertinent clinical history including gynecological examination. PAKO Linda (ASCP) Kimber:VERIFY; Authored Date: [facility] Work Phone: Relationship Consultant Cytology Report Event Display: GY Hi gh Risk HPV Testing HPV Screen Only, BRITTON Probe Negative HPV Screen Only, BRITTON Probe Interp Data: Molecular methodology performed on the [employer] [facility]. The APTIMA HPV Screening Assay is [...] EDT PAKO Linda (ASCP) Kimber:VERIFY; Authored Date: [id number] [facility] Work Phone: LABORATORYOrdered By: SYSTEM SYSTEM on 12-13-2024 Bacterial Vaginosis Negative 2 (12/13/24 4:18 PM) Normal Negative [facility] Comment on above: Interpretive Data: Makenzie munson methodology performed on the [employer] [place] System. C. trachomatis rRNA BRITTON+probe Ql (Vag fld) Negative 4 (12/13/24 4:18 PM) Normal Negative [facility] Comment on above: Interpretive Data: M olecular methodology performed on the [employer] [place] [facility]. Natacha glabrata PCR Negative (12/13/24 4:18 PM) Normal Negative [facility]Sero SS Natacha Species Negative 1 (12/13/24 4:18 PM) Normal Negative [facility] Comment on above: Interpretive Data: M olecular methodology performed on the [employer] [place] System. Chlam Source Vaginal *NA* (12/13/24 4:18 PM) Invalid Interpretation Code AH Auto Viro/Sero SS GC PCR Source Vaginal *NA* (12/13/24 4:18 PM) Invalid Interpretation Code AH Auto Viro/Sero SS N. gonorrhoeae rRNA BRITTON+probe Ql (Vag fld) Negative 5 (12/13/24 4:18 PM) Normal Negative [facility] Comment on above: Interpretive Data: M olecular methodology performed on the [employer] [place] System. Trichomonas vaginalis Negative (12/13/24 4:18 PM) Normal Negative [facility] Viro/Sero SS HPV E6+E7 mRNA BRITTON+probe Ql (Cvx) Negative 3 (12/13/24 9:23 AM) Normal Negative [facility] Comment on above: Interpretive Data: M olecular methodology performed on the [employer] [place] [facility]. The APTIMA HPV Screening Assay is [...] Viro/Sero SS Colonoscopy Reporton 025 Colonoscopy Report [facility] Medical Records Department [address] [place] [address] Colonoscopy Report MR#: [id number] Acct: [id number] Name: RAIN MURPHY Rep #: [id number] : 1975 49 From: Jose Pettit DO PCP: Dr. Berna Howell MD Status:[facility] Patient Name: Rain Murphy Procedure Date: 12/05/2024 [...] screening purposes. Procedure Code(s): --- Professional --- 26717, Colonoscopy, flexible; diagnostic, including collection of specimen(s) by brushing or washing, when performed (separate procedure) CPT copyright 2021 [employer]. All rights reserved. The codes documented in this report are preliminary and upon cash shortage investigator review may be revised to meet current compliance requirements. Jose Pettit DO 12/05/2024 9:22:01 AM This report has been signed electronically. Number of Addenda: 0 Note Initiated On: 12/05/2024 8:54 AM 12/05/24 0922 Date Jose Pettit DO [facility] Signature: Date (if indicated) CC: Dr. Berna Howell MD; Jose Pettit DO Date Dictated: 12/05/24 0854 Date Transcribed: Is Consultant: RF Signed Normal [facility] EGD Reporton 12-05-2024 EGD Report [facility] Medical Records Department [address] [place] [address] EGD Report MR#: [id number] Acct: [id number] Name: RAIN MURPHY Rep #: [id number] : 1975 49 From: Jose Pettit DO PCP: Dr. Berna Howell MD Status:[facility] Patient Name: Rain Murphy Procedure Date: 12/05/2024 [...] pathology results. Procedure Code(s): --- Professional --- 89104, Small intestinal endoscopy, enteroscopy beyond second portion of duodenum, not including ileum; with biopsy, single or multiple CPT copyright 2021 [employer]. All rights reserved. The codes documented in this report are preliminary and upon cash shortage investigator review may be revised to meet current compliance requirements. Jose Pettit DO 12/05/2024 9:19:46 AM This report has been signed electronically. Number of Addenda: 0 Note Initiated On: 12/05/2024 8:36 AM 12/05/24918 Date Jose Pettit DO [facility] Signature: Date (if indicated) CC: Dr. Berna Howell MD; Jose Pettit, DO Date Dictated: 12/05/24835 Date Transcribed: Is Consultant: AYAAN Signed Normal [facility] Immunohistochemical Stainson 12-05-2024 Immunohistochemical Stains ----- Patient Age/Sex Location Account Attending Physician ----- RAIN MURPHY 49/F EN [id number] Jose Pettit DO ----- Specimen: [id number] Received: 12/05/24 Status: YANA Franco Num: [id number] Spec Type: EGD BIOPSY Subm Dr: DO [...] developed and their performance characteristics determined by [facility]. They may not have been [...] specimen is totally submitted in one cassette. [place] 12/05/2024 CPT:21203,80685 ----- Patient Age/Sex Location Account Attending Physician ----- RAIN MURPHY 49/F EN [id number] Jose Pettit DO ----- Signed (signature on file) Dr. Jessa Berry MD 12/19/24 1604 ----- Normal [facility] Comment on above: Performed By: #### P [facility] #### [facility] [address] [place], [address] MR/OP.PROVATon 12-05-2024 MR/OP.PROVAT [facility] Medical Records Department [address] [place] [address] Provation Physician Letter MR#: [id number] Acct: [id number] Name: RAIN MURPHY Rep #: [id number] : 1975 49 From: Jose Pettit DO PCP: Dr. Berna Howell MD Status:REG [facility] 12/05/2024 Berna Howell Re : Colonoscopy procedure [...] Pettit DO Date Dictated: 12/05/24853 Date Transcribed: Is Consultant: RF Signed [facility] MR/OP.[facility] Medical Records Department [address] [place] [address] Provation Physician Letter MR#: [id number] Acct: [id number] Name: RAIN MURPHY Rep #: [id number] : 1975 49 From: Jose Pettit DO PCP: Dr. Berna Howell MD Status:REG [facility] 12/05/2024 Berna Howell Re : Upper GI [...] Pettit DO Date Dictated: 12/05/24835 Date Transcribed: Is Consultant: AYAAN Signed [facility] MR/POSTOP.[facility] 12-05-2024 MR/POSTOP.[facility] Medical Records Department [address] [place] [address] Anesthesia Postop Eval I 12/05/24915 MR#: [id number] Acct: [id number] Name: RAIN MURPHY Rep #: [id number] : 1975 49 From: Talon Parmar PCP: Dr. Berna Howell MD Status:REG SDC Y Race: C Location: [place] [address] Anesthesia: Postop Eval I Current Vital Signs [...] Talon Aguirre Signature: Date CC: Signed Normal [facility] MR/VRTJZGNX7we 12-05-2024 MR/POSTOPAN2 [facility] Medical Records Department [address] [place] [address] Anesthesia Postop Eval II 12/05/24941 MR#: [id number] Acct: [id number] Name: RAIN MURPHY Rep #: [id number] : 1975 49 From: James Rivera MD PCP: Dr. Berna Howell MD Status:REG SDC Y Race: C Location: [address] Anesthesia Postop Eval I Sum Postop [...] MD Cosigner Signature: Date CC: Signed Normal [facility] MR/Myrna 12-01-2024 MR/SUNNI [facility] Medical Records Department [address] [place] [address] PAT - Anesthesia 12/01/24 1348 MR#: [id number] Acct: [id number] Name: RAIN MURPHY Rep #: [id number] : 1975 49 From: James Rivera MD PCP: Dr. 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 Hx Hospitalization Any Problems With Anesthesia Yes: [...] take am of surgery PONV PONV - fire 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: PONV - fire 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 Female Yes 12/01/24 10:35 HX of Motion [...] 03/13/20 00:08 Respiratory Assessment Respiratory Assessment - fire 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: Respiratory Tract Infection Hx - fire 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 Hx Respiratory Tract Infection No 12/01/24 10:35 STOP Sleep Apnea STOP Sleep Apnea - fire 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: STOP Sleep Apnea - fire 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 Hx Hypertension Yes 12/01/24 10:35 Hx Sleep [...] Tobacco Use History Tobacco Use History - fire 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: Tobacco Use History - fire 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 Tobacco Use Smoking Status Never smoker 12/01/24 10:35 Hx Tobacco Use No 12/01/24 10:35 Years Smoking Packs Smoked per Day Smoking Cessation Date was within the last 15 years Hx Smoking Cessation Date Hx Smoking Cessation Counseling Hematologic Medial History Hematologic Hx - fire 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 Specify any problems Hx of Preganancy in last 3 No 12/01/24 10:35 Months Nurse Filling Out Transfusion [facility] 12/01/24 10:35 Questions: Date: 12/01/24 12/01/24 10:35 Time: 10:46 12/01/24 10:35 Patient unable to answer at this time (ie. confused, unrespo /Reproduction History /Reproductive History - fire 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: /Reproductive Hx- fire 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 Hx Now No 12/01/24 10:35 Gestational Age [...] 25 mg (more content not included)... Normal [facility] Gastroenterology Visit Repor ton 10-13-2024 Gastroenterology Visit Report [facility] Gastroenterology [address] [place] [address] OFFICE VISIT Date of Service: 10/13/24 MR#: [id number] Acct: [id number] Name: RAIN MURPHY Rep #: [id number] : 1975 Provider: HECTOR [place] Age/Sex: 48/F Location[place] [facility] [place] Status: Signed Intake Vital Signs 03/13/20 [...] to the office today for establishment with [facility]. [facility] ED 6.2.25 wiht LLQ pain. Pt with [...] after procedu (more content not included)... Normal [facility] .Auto Diffon 10-03-2024 Basophil, Absolute 0.0 10 3/mcL Normal 0.0-0.3 [facility] Comment on above: Performed By: #### A DIFF, VIDH, ANEU, CBC, GFR, LIPID, CMP, A1C #### [place] [id number] [place], [place] [address] Basophils/100 WBC (Bld) 0.5 % Normal 0.0-2.5 [facility] Comment on above: Performed By: #### A DIFF, VIDH, ANEU, CBC, GFR, LIPID, CMP, A1C #### [place] [id number] [place], [place] [address] Eosinophil, Absolute 0.5 10 3/mcL Normal 0.0-0.7 [facility] Comment on above: Performed By: #### A DIFF, VIDH, ANEU, CBC, GFR, LIPID, CMP, A1C #### [address] [address] Eosinophils/100 WBC (Bld) 6.6 % High 0.0-6.0 [facility] Comment on above: Performed By: #### A DIFF, VIDH, ANEU, CBC, GFR, LIPID, CMP, A1C #### [address] [address] Lymphocyte, Absolute 1.7 10 3/mcL Normal 0.9-4.3 [facility] Comment on above: Performed By: #### A DIFF, VIDH, ANEU, CBC, GFR, LIPID, CMP, A1C #### [address] [address] Lymphocytes/100 WBC (Bld) 24.2 % Normal 20.0-40.0 [facility] Comment on above: Performed By: #### A DIFF, VIDH, ANEU, CBC, GFR, LIPID, CMP, A1C #### [address] [address] Monocyte, Absolute 0.5 10 3/mcL Normal 0.1-1.4 [facility] Comment on above: Performed By: #### A DIFF, VIDH, ANEU, CBC, GFR, LIPID, CMP, A1C #### [address] [address] Monocytes/100 WBC (Bld) 6.3 % Normal 2.0-13.0 [facility] Comment on above: Performed By: #### A DIFF, VIDH, ANEU, CBC, GFR, LIPID, CMP, A1C #### [address] [address] Neutrophils/100 WBC (Bld) 62.4 % Normal 50.0-75.0 [facility] Comment on above: Performed By: #### A DIFF, VIDH, ANEU, CBC, GFR, LIPID, CMP, A1C #### [place] [id number] [place], [place] [address] .GFRon 10-03-2024 Estimated Glomerular Filtration Rate 68 ml/min/1.73sqm Normal [facility] Comment on above: Result Comment: Stages [...] DECKER, ELEANOR, GFR, CBC, ADIFF, LIP #### [address] [address] .NEUABSon 10-03-2024 Neutrophil, Absolute 4.5 10 3/mcL Normal 2.3-8.1 [facility] Comment on above: Performed By: #### A HEATHER DECKER, ELEANOR, GFR, CBC, ADIFF, LIP #### [place] [id number] [place], [place] [address] A1Con 10-03-2024 Glucose [Mass/Vol] 105 mg/dL Normal [facility] Comment on above: Result Comment: Deepti mated Average Glucose calculated by equation ((28.7xA1C)-46.7) Estimated average glucose (eAG) is a calculated value from Hemoglobin A1C and is litigation claim representative of the average blood glucose level in the last 2-3 month period. Normal range: less than 114 mg/dL Performed By: #### A HEATHER DECKER, ELEANRO, GFR, CBC, ADIFF, LIP #### [place] [id number] [place], [place] [address] HbA1c (Bld) [Mass fraction] 5.3 % Normal 4.3-6.4 [facility] Comment on above: Performed By: #### A HEATHER DECKER, CMP, GFR, CBC, ADIFF, LIP #### [address] [address] CBCon 10-03-2024 Erythrocyte distribution width (RBC) [Ratio] 15.0 % Normal 11.5-15.5 [facility] Comment on above: Performed By: #### A DIFF, VIDH, ANEU, CBC, GFR, LIPID, CMP, A1C #### [place] [address] Hematocrit (Bld) [Volume fraction] 41.3 % Normal 34.0-46.0 [facility] Comment on above: Performed By: #### A DIFF, VIDH, ANEU, CBC, GFR, LIPID, CMP, A1C #### [place] [address] Hgb 13.8 G/dL Normal 12.0-16.0 [facility] Comment on above: Performed By: #### A DIFF, VIDH, ANEU, CBC, GFR, LIPID, CMP, A1C #### [address] [address] MCH (RBC) [Entitic mass] 28.6 pg Normal 27.0-33.0 [facility] Comment on above: Performed By: #### A DIFF, VIDH, ANEU, CBC, GFR, LIPID, CMP, A1C #### [address] [address] MCHC 33.4 G/dL Normal 32.0-36.0 [facility] Comment on above: Performed By: #### A DIFF, VIDH, ANEU, CBC, GFR, LIPID, CMP, A1C #### [address] [address] MCV (RBC) [Entitic vol] 85.6 fL Normal 80.0-99.0 [facility] Comment on above: Performed By: #### A DIFF, VIDH, ANEU, CBC, GFR, LIPID, CMP, A1C #### [place] [id number] Platelet 278 10 3/mcL Normal 150-450 [facility] Comment on above: Performed By: #### A DIFF, VIDH, ANEU, CBC, GFR, LIPID, CMP, A1C #### [address] [address] Platelet mean volume (Bld) [Entitic vol] 7.8 fL Normal 6.6-10.5 [facility] Comment on above: Performed By: #### A DIFF, VIDH, ANEU, CBC, GFR, LIPID, CMP, A1C #### [address] [address] RBC 4.82 10 6/mcL Normal 4.10-5.30 [facility] Comment on above: Performed By: #### A DIFF, VIDH, ANEU, CBC, GFR, LIPID, CMP, A1C #### [address] [address] WBC 7.2 10 3/mcL Normal 4.5-10.8 [facility] Comment on above: Performed By: #### A DIFF, VIDH, ANEU, CBC, GFR, LIPID, CMP, A1C #### [address] [address] CMPon 10-03-2024 Albumin Level 3.8 G/dL Normal 3.5-5.0 [facility] Comment on above: Performed By: #### A HEATHER DECKER, CMP, GFR, CBC, ADIFF, LIP #### [place] [id number] Albumin/Globulin [Mass ratio] 0.9 {ratio} Low 1.1-2.5 [facility] Comment on above: Performed By: #### A MD JERONIMOW, CMP, GFR, CBC, ADIFF, LIP #### [place] [id number] ALP [Catalytic activity/Vol] 109 U/L Normal 40-135 [facility] Comment on above: Performed By: #### A MD JERONIMOW, CMP, GFR, CBC, ADIFF, LIP #### [place] [address] [place], [place] [address] ALT [Catalytic activity/Vol] 34 U/L Normal 14-59 [facility] Comment on above: Performed By: #### A HEATHER DECKER, CMP, GFR, CBC, ADIFF, LIP #### [address] [address] AST [Catalytic activity/Vol] 24 U/L Normal 10-40 [facility] Comment on above: Performed By: #### A HEATHER DECKER, CMP, GFR, CBC, ADIFF, LIP #### [address] [address] Bili Total 0.6 mg/dL Normal 0.2-1.0 [facility] Comment on above: Result Comment: Use of this assay is not recommended for patients undergoing treatment with eltrombopag due to the potential for falsely elevated results. Performed By: #### A HEATHER DECKER, ELEANOR, GFR, CBC, ADIFF, LIP #### [place] [id number] BUN/Creatinine Ratio 16 ratio Normal 7-27 [facility] Comment on above: Performed By: #### A HEATHER DECKER, ELEANOR, GFR, CBC, ADIFF, LIP #### [address] [address] Calcium [Mass/Vol] 9.3 mg/dL Normal 8.4-10.2 [facility] Comment on above: Performed By: #### A HEATHER DECKER, ELEANOR, GFR, CBC, ADIFF, LIP #### [address] [address] Chloride [Moles/Vol] 102 mmol/L Normal 98-107 [facility] Comment on above: Performed By: #### A HEATHER DECKER, ELENAOR, GFR, CBC, ADIFF, LIP #### [address] [address] CO2 [Moles/Vol] 30 mmol/L High 22-29 [facility] Comment on above: Performed By: #### A HEATHER DECKER, CMP, GFR, CBC, ADIFF, LIP #### [address] [address] Creatinine [Mass/Vol] 1.01 mg/dL High 0.51-0.95 [facility] Comment on above: Performed By: #### A HEATHER DECKER, CMP, GFR, CBC, ADIFF, LIP #### [address] [address] Electrolyte Balance 10.0 mEq/L Normal 4.0-15.0 [facility] Comment on above: Performed By: #### A HEATHER DECKER, CMP, GFR, CBC, ADIFF, LIP #### [address] [address] Globulin 4.3 G/dL Normal 2.7-4.4 [facility] Comment on above: Performed By: #### A HEATHER DECKER, ELEANOR, GFR, CBC, ADIFF, LIP #### [place] [address] Glucose [Mass/Vol] 102 mg/dL Normal 70-105 [facility] Comment on above: Performed By: #### A HEATHER DECKER, ELEANOR, GFR, CBC, ADIFF, LIP #### [address] [address] Potassium [Moles/Vol] 4.1 mmol/L Normal 3.5-5.1 [facility] Comment on above: Performed By: #### A HEATHER DECKER, ELEANOR, GFR, CBC, ADIFF, LIP #### [address] [address] Sodium [Moles/Vol] 142 mmol/L Normal 136-145 [facility] Comment on above: Performed By: #### A HEATHER DECKER, ELEANOR, GFR, CBC, ADIFF, LIP #### [address] [address] Total Protein 8.1 G/dL Normal 6.4-8.2 [facility] Comment on above: Performed By: #### A HEATHER DECKER, CMP, GFR, CBC, ADIFF, LIP #### [place] [address] [place], [place] [address] Urea nitrogen [Mass/Vol] 16 mg/dL Normal 7-18 [facility] Comment on above: Performed By: #### A HEATHER DECKER, CMP, GFR, CBC, ADIFF, LIP #### [place] [id number] [place], [place] [address] LABORATORYOrdered By: SYSTEM SYSTEM on 10-03-2024 25-hydroxyvitamin [...] calculated value from Hemoglobin A1C and is litigation claim representative of the average blood glucose level [...] 10-03-2024 Cholesterol [Mass/Vol] 198 mg/dL Normal 0-200 [facility] Comment on above: Result Comment: Chol esterol Reference Interval: Less than 200 Desirable 200-239 Borderline high risk 240 and above High risk Performed By: #### A HEATHER DECKER, CMP, GFR, CBC, ADIFF, LIP #### [address] [address] Cholesterol in HDL [Mass/Vol] 40 mg/dL Normal 40-60 [facility] Comment on above: Performed By: #### A HEATHER DECKER, CMP, GFR, CBC, ADIFF, LIP #### [address] [address] Cholesterol in LDL [Mass/Vol] 139 mg/dL High 0-130 [facility] Comment on above: Performed By: #### A HEATHER DECKER, CMP, GFR, CBC, ADIFF, LIP #### [address] [address] Triglyceride [Mass/Vol] 94 mg/dL Normal 0-150 [facility] Comment on above: Result Comment: Trig lyceride Reference Interval: Less than 150 Normal 150-199 Borderline high risk 200-499 High risk 500 or higher Very high risk Performed By: #### A HEATHER DECKER, CMP, GFR, CBC, ADIFF, LIP #### [address] [address] VIDHon 10-03-2024 Vit. D 25-Hydroxy 41.6 ng/mL Normal [facility] Comment on above: Result Comment: Inte rpretive Values Based on Total 25(OH) Vitamin D: Deficient <20 ng/mL Insufficient 20 - <30 ng/mL Sufficient 30-100 ng/mL Performed By: #### A HEATHER DECKER, CMP, GFR, CBC, ADIFF, LIP #### [address] [address] .Auto Diffon 09-12-2024 Basophil, Absolute 0.0 10 3/mcL Normal 0.0-0.3 [facility] Comment on above: Performed By: #### A HEATHER DECKER, CMP, GFR, CBC, ADIFF, LIP #### [address] [address] Basophils/100 WBC (Bld) 0.4 % Normal 0.0-2.5 [facility] Comment on above: Performed By: #### A HEATHER DECKER, CMP, GFR, CBC, ADIFF, LIP #### [address] [address] Eosinophil, Absolute 0.5 10 3/mcL Normal 0.0-0.7 [facility] Comment on above: Performed By: #### A HEATHER DECKER, CMP, GFR, CBC, ADIFF, LIP #### [address] [address] Eosinophils/100 WBC (Bld) 4.9 % Normal 0.0-6.0 [facility] Comment on above: Performed By: #### A HEATHER DECKER, CMP, GFR, CBC, ADIFF, LIP #### [address] [address] Lymphocyte, Absolute 1.9 10 3/mcL Normal 0.9-4.3 [facility] Comment on above: Performed By: #### A HEATHER DECKER, CMP, GFR, CBC, ADIFF, LIP #### [address] [address] Lymphocytes/100 WBC (Bld) 21.1 % Normal 20.0-40.0 [facility] Comment on above: Performed By: #### A HEATHER DECKER, CMP, GFR, CBC, ADIFF, LIP #### [address] [address] Monocyte, Absolute 0.5 10 3/mcL Normal 0.1-1.4 [facility] Comment on above: Performed By: #### A HEATHER DECKER, CMP, GFR, CBC, ADIFF, LIP #### [place] [id number] [place], [place] [address] Monocytes/100 WBC (Bld) 5.7 % Normal 2.0-13.0 [facility] Comment on above: Performed By: #### A HEATHER DECKER, CMP, GFR, CBC, ADIFF, LIP #### [place] [id number] [place], [place] [address] Neutrophils/100 WBC (Bld) 67.9 % Normal 50.0-75.0 [facility] Comment on above: Performed By: #### A HEATHER DECKER, CMP, GFR, CBC, ADIFF, LIP #### [place] [id number] [place], [place] [address] .GFRon 09-12-2024 Estimated Glomerular Filtration Rate 79 ml/min/1.73sqm Normal [facility] Comment on above: Result Comment: Stages [...] DECKER, CMP, GFR, CBC, ADIFF, LIP #### [place] [id number] [place], [place] [address] .MDWon 09-12-2024 Monocyte Distribution Width 22.39 High 0.00-20.00 [facility] Comment on above: Result Comment: For adults in ED, MDW>20.0 may be associated with a higher risk of sepsis during the first 12hrs of hospital admission Performed By: #### A HEATHER DECKER, CMP, GFR, CBC, ADIFF, LIP #### [place] [address] .NEUABSon 09-12-2024 Neutrophil, Absolute 6.3 10 3/mcL Normal 2.3-8.1 [facility] Comment on above: Performed By: #### A HEATHER DECKER, CMP, GFR, CBC, ADIFF, LIP #### [place] [address] CBCon 09-12-2024 Erythrocyte distribution width (RBC) [Ratio] 14.7 % Normal 11.5-15.5 [facility] Comment on above: Performed By: #### A HEATHER DECKER, CMP, GFR, CBC, ADIFF, LIP #### [place] [address] Hematocrit (Bld) [Volume fraction] 39.2 % Normal 34.0-46.0 [facility] Comment on above: Performed By: #### A HEATHER DECKER, CMP, GFR, CBC, ADIFF, LIP #### [place] [address] Hgb 13.2 G/dL Normal 12.0-16.0 [facility] Comment on above: Performed By: #### A HEATHER DECKER, CMP, GFR, CBC, ADIFF, LIP #### [place] [address] MCH (RBC) [Entitic mass] 28.9 pg Normal 27.0-33.0 [facility] Comment on above: Performed By: #### A HEATHER DECKER, CMP, GFR, CBC, ADIFF, LIP #### [place] [address] MCHC 33.7 G/dL Normal 32.0-36.0 [facility] Comment on above: Performed By: #### A HEATHER DECKER, CMP, GFR, CBC, ADIFF, LIP #### [place] [address] MCV (RBC) [Entitic vol] 85.9 fL Normal 80.0-99.0 [facility] Comment on above: Performed By: #### A HEATHER DECKER, CMP, GFR, CBC, ADIFF, LIP #### [address] [address] Platelet 290 10 3/mcL Normal 150-450 [facility] Comment on above: Performed By: #### A HEATHER DECKER, ELEANOR, GFR, CBC, ADIFF, LIP #### [address] [address] Platelet mean volume (Bld) [Entitic vol] 7.3 fL Normal 6.6-10.5 [facility] Comment on above: Performed By: #### A HEATHER DECKER, ELEANOR, GFR, CBC, ADIFF, LIP #### [address] [address] RBC 4.56 10 6/mcL Normal 4.10-5.30 [facility] Comment on above: Performed By: #### A HEATHER DECKER, ELEANOR, GFR, CBC, ADIFF, LIP #### [address] [address] WBC 9.2 10 3/mcL Normal 4.5-10.8 [facility] Comment on above: Performed By: #### A HEATHER DECKER, ELEANOR, GFR, CBC, ADIFF, LIP #### [address] [address] CMPon 09-12-2024 Albumin Level 4.0 G/dL Normal 3.5-5.0 [facility] Comment on above: Performed By: #### A HEATHER DECKER, ELEANOR, GFR, CBC, ADIFF, LIP #### [address] [address] Albumin/Globulin [Mass ratio] 1.0 {ratio} Low 1.1-2.5 [facility] Comment on above: Performed By: #### A HEATHER DECKER, ELEANOR, GFR, CBC, ADIFF, LIP #### [address] [address] ALP [Catalytic activity/Vol] 115 U/L Normal 40-135 [facility] Comment on above: Performed By: #### A HEATHER DECKER, ELEANOR, GFR, CBC, ADIFF, LIP #### [address] [address] ALT [Catalytic activity/Vol] 31 U/L Normal 14-59 [facility] Comment on above: Performed By: #### A HEATHER DECKER, ELEANOR, GFR, CBC, ADIFF, LIP #### [address] [address] AST [Catalytic activity/Vol] 29 U/L Normal 10-40 [facility] Comment on above: Performed By: #### A HEATHER DECKER, ELEANOR, GFR, CBC, ADIFF, LIP #### [address] [address] Bili Total 0.5 mg/dL Normal 0.2-1.0 [facility] Comment on above: Result Comment: Use of this assay is not recommended for patients undergoing treatment with eltrombopag due to the potential for falsely elevated results. Performed By: #### A HEATHER DECKER, ELEANOR, GFR, CBC, ADIFF, LIP #### [address] [address] BUN/Creatinine Ratio 26 ratio Normal 7-27 [facility] Comment on above: Performed By: #### A HEATHER DECKER, ELEANOR, GFR, CBC, ADIFF, LIP #### [address] [address] Calcium [Mass/Vol] 9.6 mg/dL Normal 8.4-10.2 [facility] Comment on above: Performed By: #### A HEATHER DECKER, ELEANOR, GFR, CBC, ADIFF, LIP #### [address] [address] Chloride [Moles/Vol] 100 mmol/L Normal 98-107 [facility] Comment on above: Performed By: #### A HEATHER DECKER, CMP, GFR, CBC, ADIFF, LIP #### [address] [address] CO2 [Moles/Vol] 26 mmol/L Normal 22-29 [facility] Comment on above: Performed By: #### A HEATHER DECKER, CMP, GFR, CBC, ADIFF, LIP #### [address] [address] Creatinine [Mass/Vol] 0.89 mg/dL Normal 0.51-0.95 [facility] Comment on above: Performed By: #### A HEATHER DECKER, ELEANOR, GFR, CBC, ADIFF, LIP #### [place] [address] Electrolyte Balance 9.0 mEq/L Normal 4.0-15.0 [facility] Comment on above: Performed By: #### A HEATHER DECKER, ELEANRO, GFR, CBC, ADIFF, LIP #### [place] [address] Globulin 4.1 G/dL Normal 2.7-4.4 [facility] Comment on above: Performed By: #### A HEATHER DECKER, ELEANOR, GFR, CBC, ADIFF, LIP #### [place] [address] Glucose [Mass/Vol] 96 mg/dL Normal 70-105 [facility] Comment on above: Performed By: #### A HEATHER DECKER, ELEANOR, GFR, CBC, ADIFF, LIP #### [address] [address] Potassium [Moles/Vol] 4.1 mmol/L Normal 3.5-5.1 [facility] Comment on above: Performed By: #### A HEATHER DECKER, ELEANOR, GFR, CBC, ADIFF, LIP #### [place] [address] Sodium [Moles/Vol] 135 mmol/L Low 136-145 [facility] Comment on above: Performed By: #### A HEATHER DECKER, CMP, GFR, CBC, ADIFF, LIP #### [facility] [address] [place], [place] [address] Total Protein 8.1 G/dL Normal 6.4-8.2 [facility] Comment on above: Performed By: #### A HEATHER DECKER, CMP, GFR, CBC, ADIFF, LIP #### [facility] [address] [place], [place] [address] Urea nitrogen [Mass/Vol] 23 mg/dL High 7-18 [facility] Comment on above: Performed By: #### A HEATHER DECKER, CMP, GFR, CBC, ADIFF, LIP #### [facility] [address] [place], [place] [address] CT ABD/PELVIS W/ IV CONTRAST ONLYon 09-12-2024 [...] 09/12/2024 2:36:04 PM Ordering Provider: ROSA George [facility] LABORATORYOrdered By: SYSTEM SYSTEM on 09-12-2024 [...] 09-12-2024 Lipase Level 27 U/L Normal 16-77 [facility] Comment on above: Performed By: #### A JERONIMO, W, CMP, GFR, CBC, ADIFF, LIP #### [place] [address] UAon 09-12-2024 Color (U) Yellow Normal [facility] Comment on above: Performed By: #### U A #### [place] [address] Glucose (U) [Mass/Vol] Negative Normal Negative [facility] Comment on above: Performed By: #### U A #### [address] [address] Ketones Ql (U) Negative Normal Negative [facility] Comment on above: Performed By: #### U A #### [place] [address] UA Appear Clear Normal Clear [facility] Comment on above: Performed By: #### U A #### [address] [address] UA Blood Negative Normal Negative [facility] Comment on above: Performed By: #### U A #### [address] [address] UA Leuk Est Negative Normal Negative [facility] Comment on above: Performed By: #### U A #### [address] [address] UA Nitrite Negative Normal Negative [facility] Comment on above: Performed By: #### U A #### [place] [address] UA pH 6.0 Normal 5.0 - 8.0 [facility] Comment on above: Performed By: #### U A #### [place] [id number] UA Protein Negative Normal Negative [facility] Comment on above: Performed By: #### U A #### [place] [id number] UA Spec Grav <=1.005 Abnormal 1.015-1.02 5 [facility] Comment on above: Performed By: #### U A #### [place] [address] UA Specimen Type Void Normal [facility] Comment on above: Performed By: #### U A #### [place] [address] UA Urobilinogen 0.2 E.U./dL Normal 0.2-1.0 [facility] Comment on above: Performed By: #### U A #### [place] [address] Urobilinogen (U) [Mass/Vol] Negative Normal Negative [facility] Comment on above: Performed By: #### U A #### [place] [address] MA MAMMOGRAM SCREENING BILAT ERAL W/TOMOon 08-08-2024 MA MAMMOGRAM SCREENING BILATERAL W/MARCEL ORIGINAL FROM: [place] [address] PROCEDURE FOR: RAIN MURPHY [address] [place] [address] Home: PID#: [id number] Exam#: [id number] : 1975 Age: 48 TO: BERNA CALDERON [place] [address] Fax: NO FAX EXAMINATION: SCREENING DIGITAL BILATERAL [...] addition to annual mammographic screening per the [employer]. I have personally reviewed the [...] 08/08/2024 3:59:31 PM Ordering Provider: BERNA HOWELL Waiter/Waitress Second Class: FIORDALIZA AGOSTO RT (R)(M) letter sent: Normal BI-RADS 1 and 2 Mammogram BI-RADS: 2 Benign Normal [facility] .Auto Diffon 07-11-2024 Basophil, Absolute 0.0 10 3/mcL Normal 0.0-0.2 [facility] Comment on above: Performed By: #### A JERONIMO, MDW, CMP, GFR, CBC, ADIFF, LIP #### [facility] [address] [place], [place] [address] Basophils/100 WBC (Bld) 0.5 % Normal 0.0-2.5 [facility] Comment on above: Performed By: #### A HEATHER DECKER, CMP, GFR, CBC, ADIFF, LIP #### [address] [address] Eosinophil, Absolute 0.3 10 3/mcL Normal 0.0-0.7 [facility] Comment on above: Performed By: #### A HEATHER DECKER, CMP, GFR, CBC, ADIFF, LIP #### [address] [address] Eosinophils/100 WBC (Bld) 4.9 % Normal 0.0-7.0 [facility] Comment on above: Performed By: #### A HEATHER DECKER, CMP, GFR, CBC, ADIFF, LIP #### [address] [address] Lymphocyte, Absolute 1.8 10 3/mcL Normal 0.9-4.3 [facility] Comment on above: Performed By: #### A HEATHER DECKER, CMP, GFR, CBC, ADIFF, LIP #### [address] [address] Lymphocytes/100 WBC (Bld) 26.3 % Normal 20.0-40.0 [facility] Comment on above: Performed By: #### A HEATHER DECKER, CMP, GFR, CBC, ADIFF, LIP #### [address] [address] Monocyte, Absolute 0.4 10 3/mcL Normal 0.1-1.4 [facility] Comment on above: Performed By: #### A HEATHER DECKER, CMP, GFR, CBC, ADIFF, LIP #### [address] [address] Monocytes/100 WBC (Bld) 6.3 % Normal 2.0-13.0 [facility] Comment on above: Performed By: #### A HEATHER DECKER, CMP, GFR, CBC, ADIFF, LIP #### [address] [address] Neutrophils/100 WBC (Bld) 62.0 % Normal 50.0-75.0 [facility] Comment on above: Performed By: #### A HEATHER DECKER, CMP, GFR, CBC, ADIFF, LIP #### [address] [address] .GFRon 07-11-2024 Estimated Glomerular Filtration Rate 67 ml/min/1.73sqm Normal [facility] Comment on above: Result Comment: Stages [...] DECKER, CMP, GFR, CBC, ADIFF, LIP #### [address] [address] .MDWon 07-11-2024 Monocyte Distribution Width 22.46 High 0.00-20.00 [facility] Comment on above: Result Comment: For adults in ED, MDW>20.0 may be associated with a higher risk of sepsis during the first 12hrs of hospital admission Performed By: #### A HEATHER DECKER, CMP, GFR, CBC, ADIFF, LIP #### [address] [address] .NEUABSon 07-11-2024 Neutrophil, Absolute 4.2 10 3/mcL Normal 2.3-8.1 [facility] Comment on above: Performed By: #### A HEATHER DECKER, CMP, GFR, CBC, ADIFF, LIP #### [address] [address] .Urinalysis Microscopic (AO) on 07-11-2024 UA RBC 0-5 Abnormal None Seen [facility] Comment on above: Performed By: #### A HEATHER DECKER, ELEANOR, GFR, CBC, ADIFF, LIP #### [address] [address] UA Renal Epithelial Rare Abnormal [facility] Comment on above: Performed By: #### A HEATHER DECKER, CMP, GFR, CBC, ADIFF, LIP #### [address] [address] UA Squam Epithelial 0-5 Abnormal None Seen [facility] Comment on above: Performed By: #### A HEATHER DECKER, ELEANOR, GFR, CBC, ADIFF, LIP #### [address] [address] UA WBC 0-5 Abnormal None Seen [facility] Comment on above: Performed By: #### A HEATHER DECKER, ELEANOR, GFR, CBC, ADIFF, LIP #### [address] [address] CBCon 07-11-2024 Erythrocyte distribution width (RBC) [Ratio] 15.1 % Normal 11.5-15.5 [facility] Comment on above: Performed By: #### A HEATHER DECKER, ELEANOR, GFR, CBC, ADIFF, LIP #### [address] [address] Hematocrit (Bld) [Volume fraction] 41.2 % Normal 34.0-46.0 [facility] Comment on above: Performed By: #### A HEATHER DECKER, ELEANOR, GFR, CBC, ADIFF, LIP #### [address] [address] Hgb 13.6 G/dL Normal 12.0-16.0 [facility] Comment on above: Performed By: #### A HEATHER DECKER, ELEANOR, GFR, CBC, ADIFF, LIP #### [address] [address] MCH (RBC) [Entitic mass] 28.4 pg Normal 27.0-33.0 [facility] Comment on above: Performed By: #### A HEATHER DECKER, ELEANOR, GFR, CBC, ADIFF, LIP #### [address] [address] MCHC 33.1 G/dL Normal 32.0-36.0 [facility] Comment on above: Performed By: #### A HEATHER DECKER, ELEANOR, GFR, CBC, ADIFF, LIP #### [address] [address] MCV (RBC) [Entitic vol] 85.9 fL Normal 80.0-99.0 [facility] Comment on above: Performed By: #### A HEATHER DECKER, ELEANOR, GFR, CBC, ADIFF, LIP #### [address] [address] Platelet 277 10 3/mcL Normal 150-450 [facility] Comment on above: Performed By: #### A HEATHER DECKER, ELEANOR, GFR, CBC, ADIFF, LIP #### [address] [address] Platelet mean volume (Bld) [Entitic vol] 7.0 fL Normal 6.6-10.5 [facility] Comment on above: Performed By: #### A HEATHER DECKER, ELEANOR, GFR, CBC, ADIFF, LIP #### [address] [address] RBC 4.80 10 6/mcL Normal 4.10-5.30 [facility] Comment on above: Performed By: #### A HEATHER DECKRE, ELEANOR, GFR, CBC, ADIFF, LIP #### [address] [address] WBC 6.8 10 3/mcL Normal 4.5-10.8 [facility] Comment on above: Performed By: #### A HEATHER DECKER, ELEANOR, GFR, CBC, ADIFF, LIP #### [address] [address] CMPon 07-11-2024 Albumin Level 3.7 G/dL Normal 3.5-5.0 [facility] Comment on above: Performed By: #### A HEATHER DECKER, ELEANOR, GFR, CBC, ADIFF, LIP #### [address] [address] Albumin/Globulin [Mass ratio] 0.9 {ratio} Low 1.1-2.5 [facility] Comment on above: Performed By: #### A HEATHER DECKER, ELEANOR, GFR, CBC, ADIFF, LIP #### [address] [address] ALP [Catalytic activity/Vol] 120 U/L Normal 40-135 [facility] Comment on above: Performed By: #### A HEATHER DECKER, ELEANOR, GFR, CBC, ADIFF, LIP #### [address] [address] ALT [Catalytic activity/Vol] 26 U/L Normal 14-59 [facility] Comment on above: Performed By: #### A HEATHER DECKER, ELEANOR, GFR, CBC, ADIFF, LIP #### [address] [address] AST [Catalytic activity/Vol] 23 U/L Normal 10-40 [facility] Comment on above: Performed By: #### A HEATHER DECKER, ELEANOR, GFR, CBC, ADIFF, LIP #### [address] [address] Bili Total 0.6 mg/dL Normal 0.2-1.0 [facility] Comment on above: Result Comment: Use of this assay is not recommended for patients undergoing treatment with eltrombopag due to the potential for falsely elevated results. Performed By: #### A HEATHER DECKER, ELEANOR, GFR, CBC, ADIFF, LIP #### [address] [address] BUN/Creatinine Ratio 17 ratio Normal 7-27 [facility] Comment on above: Performed By: #### A HEATHER DECKER, ELEANOR, GFR, CBC, ADIFF, LIP #### [address] [address] Calcium [Mass/Vol] 9.4 mg/dL Normal 8.4-10.2 [facility] Comment on above: Performed By: #### A HEATHER DECKER, CMP, GFR, CBC, ADIFF, LIP #### [address] [address] Chloride [Moles/Vol] 103 mmol/L Normal 98-107 [facility] Comment on above: Performed By: #### A HEATHER DECKER, CMP, GFR, CBC, ADIFF, LIP #### [address] [address] CO2 [Moles/Vol] 33 mmol/L High 22-29 [facility] Comment on above: Performed By: #### A HEATHER DECKER, ELEANOR, GFR, CBC, ADIFF, LIP #### [place] [address] Creatinine [Mass/Vol] 1.02 mg/dL Normal 0.55-1.02 [facility] Comment on above: Result Comment: Test ing performed on Siemens Dimension EXL analyzer using a modified kinetic Oralia technique. Performed By: #### A HEATHER DECKER, ELEANOR, GFR, CBC, ADIFF, LIP #### [address] [address] Electrolyte Balance 5.0 mEq/L Normal 4.0-15.0 [facility] Comment on above: Performed By: #### A HEATHER DECKER, ELEANOR, GFR, CBC, ADIFF, LIP #### [address] [address] Globulin 3.9 G/dL High 1.5-3.8 [facility] Comment on above: Performed By: #### A HEATHER DECKER, ELEANOR, GFR, CBC, ADIFF, LIP #### [address] [address] Glucose [Mass/Vol] 94 mg/dL Normal 70-105 [facility] Comment on above: Performed By: #### A JERONIMO, MDW, CMP, GFR, CBC, ADIFF, LIP #### [place] [id number] [place], [place] [address] Potassium [Moles/Vol] 4.2 mmol/L Normal 3.5-5.1 [facility] Comment on above: Performed By: #### A HEATHER DECKER, CMP, GFR, CBC, ADIFF, LIP #### [place] [id number] [place], [place] [address] Sodium [Moles/Vol] 141 mmol/L Normal 136-145 [facility] Comment on above: Performed By: #### A HEATHER DECKER, CMP, GFR, CBC, ADIFF, LIP #### [address] [address] Total Protein 7.6 G/dL Normal 6.4-8.2 [facility] Comment on above: Performed By: #### A HEATHER DECKER, ELEANOR, GFR, CBC, ADIFF, LIP #### [place] [phone] [place], [place] [address] Urea nitrogen [Mass/Vol] 17 mg/dL Normal 7-18 [facility] Comment on above: Performed By: #### A HEATHER DECKER, ELEANOR, GFR, CBC, ADIFF, LIP #### [address] [address] CNOVon 07-11-2024 CNOV Office Visit ([facility] ) RAIN MURPHY ([id number]) 1975 F Date Time Provider Department 07/11/24 11:20 AM [facility] During your visit today, we recorded the following information about you: Temperature Pulse Respiration Blood pressure 98.2 degrees 59/minute 20/minute 121/76 Weight 150.9 kg Evans Nolan MD 07/11/2024 12:29 PM Signed [facility]ERT Murphy is a [...] hematuria. She has been referred to a claims consultant for dyspnea on exertion. Prior colon evaluations [...] treatment. She generally has her care at [facility] and will go to the ER therefore [...] The patient was other (comment) (Referred to [facility] ER). Procedures Allergies As of Date: 07/11/2024 [...] hydrocortisone (HEM (more content not included)... Normal [facility] CT ABD/PELVIS W/ IV CONTRAST [...] by: Grace Rivero MD Preliminary Report By: Garce Rivero MD Electronically signed By Grace Riveor MD Dictated Date: 07/11/2024 1:33:03 PM Prelim Date: 07/11/2024 1:34:56 PM Sign Date: 07/11/2024 1:34:56 PM Ordering Provider: SUZETTE PEREZ Normal [facility] LIPon 07-11-2024 Lipase Level 24 U/L Normal 16-77 [facility] Comment on above: Performed By: #### A MD JERONIMOW, CMP, GFR, CBC, ADIFF, LIP #### [facility] [address] [place], [place] [address] UAon 07-11-2024 Color (U) Yellow Normal [facility] Comment on above: Performed By: #### A HEATHER DECKER, CMP, GFR, CBC, ADIFF, LIP #### [place] [address] Glucose (U) [Mass/Vol] Negative Normal Negative [facility] Comment on above: Performed By: #### A HEATHER DECKER, ELEANOR, GFR, CBC, ADIFF, LIP #### [place] [id number] Ketones Ql (U) Negative Normal Negative [facility] Comment on above: Performed By: #### A HEATHER DECKER, ELEANOR, GFR, CBC, ADIFF, LIP #### [place] [address] UA Appear Clear Normal Clear [facility] Comment on above: Performed By: #### A HEATHER DECKER, ELEANOR, GFR, CBC, ADIFF, LIP #### [place] [address] UA Blood Negative Normal Negative [facility] Comment on above: Performed By: #### A HEATHER DECKER, ELEANOR, GFR, CBC, ADIFF, LIP #### [place] [address] UA Leuk Est Trace Abnormal Negative [facility] Comment on above: Performed By: #### A HEATHER DECKER, CMP, GFR, CBC, ADIFF, LIP #### [place] [address] UA Nitrite Negative Normal Negative [facility] Comment on above: Performed By: #### A HEATHER DECKER, CMP, GFR, CBC, ADIFF, LIP #### [place] [address] UA pH 7.0 Normal 5.0 - 8.0 [facility] Comment on above: Performed By: #### A HEATHER DECKER, CMP, GFR, CBC, ADIFF, LIP #### [place] [address] UA Protein Negative Normal Negative [facility] Comment on above: Performed By: #### A HEATHER DECKER, ELEANOR, GFR, CBC, ADIFF, LIP #### [address] [address] UA Spec Grav 1.025 Normal 1.015-1.02 5 [facility] Comment on above: Performed By: #### A HEATHER DECKER, ELEANOR, GFR, CBC, ADIFF, LIP #### [address] [address] UA Specimen Type Clean Catch Normal [facility] Comment on above: Performed By: #### A HEATHER DECKER, ELEANOR, GFR, CBC, ADIFF, LIP #### [place] [address] UA Urobilinogen 0.2 E.U./dL Normal 0.2-1.0 [facility] Comment on above: Performed By: #### A HEATHER DECKER, ELEANOR, GFR, CBC, ADIFF, LIP #### [place] [address] Urobilinogen (U) [Mass/Vol] Negative Normal Negative [facility] Comment on above: Performed By: #### A HEATHER DECKER, ELEANOR, GFR, CBC, ADIFF, LIP #### [address] [address] .Auto Diffon 02-17-2024 Basophil, Absolute 0.1 10 3/mcL Normal 0.0-0.2 [facility] Comment on above: Performed By: #### A HEATHER DECKER, ELEANOR, GFR, CBC, ADIFF, LIP #### [address] [address] Basophils/100 WBC (Bld) 0.8 % Normal 0.0-2.5 [facility] Comment on above: Performed By: #### A HEATHER DECKER, ELEANOR, GFR, CBC, ADIFF, LIP #### [address] [address] Eosinophil, Absolute 0.4 10 3/mcL Normal 0.0-0.7 [facility] Comment on above: Performed By: #### A HEATHER DECKER, CMP, GFR, CBC, ADIFF, LIP #### [address] [address] Eosinophils/100 WBC (Bld) 5.4 % Normal 0.0-7.0 [facility] Comment on above: Performed By: #### A HEATHER DECKER, CMP, GFR, CBC, ADIFF, LIP #### [address] [address] Lymphocyte, Absolute 1.5 10 3/mcL Normal 0.9-4.3 [facility] Comment on above: Performed By: #### A HEATHER DECKER, CMP, GFR, CBC, ADIFF, LIP #### [address] [address] Lymphocytes/100 WBC (Bld) 21.8 % Normal 20.0-40.0 [facility] Comment on above: Performed By: #### A HEATHER DECKER, CMP, GFR, CBC, ADIFF, LIP #### [address] [address] Monocyte, Absolute 0.3 10 3/mcL Normal 0.1-1.4 [facility] Comment on above: Performed By: #### A HEATHER DECKER, CMP, GFR, CBC, ADIFF, LIP #### [address] [address] Monocytes/100 WBC (Bld) 3.9 % Normal 2.0-13.0 [facility] Comment on above: Performed By: #### A HEATHER DECKER, CMP, GFR, CBC, ADIFF, LIP #### [address] [address] Neutrophils/100 WBC (Bld) 68.1 % Normal 50.0-75.0 [facility] Comment on above: Performed By: #### A HEATHER DECKER, CMP, GFR, CBC, ADIFF, LIP #### [address] [address] .GFRon 02-17-2024 GFR 75 ml/min/1.73sqm Normal [facility] Comment on above: Result Comment: GFR [...] DECKER, CMP, GFR, CBC, ADIFF, LIP #### [address] [address] GFR Non- 62 ml/min/1.73sqm Normal [facility] Comment on above: Result Comment: GFR [...] DECKER, ELEANOR, GFR, CBC, ADIFF, LIP #### [address] [address] .NEUABSon 02-17-2024 Neutrophil, Absolute 4.6 10 3/mcL Normal 2.3-8.1 [facility] Comment on above: Performed By: #### A HEATHER DEKCER, CMP, GFR, CBC, ADIFF, LIP #### [address] [address] CBCon 02-17-2024 Erythrocyte distribution width (RBC) [Ratio] 17.1 % High 11.5-15.5 [facility] Comment on above: Performed By: #### A HEATHER DECKER, ELEANOR, GFR, CBC, ADIFF, LIP #### [address] [address] Hematocrit (Bld) [Volume fraction] 37.1 % Normal 34.0-46.0 [facility] Comment on above: Performed By: #### A HEATHER DECKER, LEEANOR, GFR, CBC, ADIFF, LIP #### [place] [id number] Hgb 12.3 G/dL Normal 12.0-16.0 [facility] Comment on above: Performed By: #### A HEATHER DECKER, ELEANOR, GFR, CBC, ADIFF, LIP #### [address] [address] MCH (RBC) [Entitic mass] 28.3 pg Normal 27.0-33.0 [facility] Comment on above: Performed By: #### A HEATHER DECKER, ELEANOR, GFR, CBC, ADIFF, LIP #### [address] [address] MCHC 33.1 G/dL Normal 32.0-36.0 [facility] Comment on above: Performed By: #### A HEATHER DECKER, ELEANOR, GFR, CBC, ADIFF, LIP #### [address] [address] MCV (RBC) [Entitic vol] 85.6 fL Normal 80.0-99.0 [facility] Comment on above: Performed By: #### A HEATHER DECKER, ELEANOR, GFR, CBC, ADIFF, LIP #### [address] [address] Platelet 230 10 3/mcL Normal 150-450 [facility] Comment on above: Performed By: #### A HEATHER DECKER, ELEANOR, GFR, CBC, ADIFF, LIP #### [address] [address] Platelet mean volume (Bld) [Entitic vol] 7.8 fL Normal 6.6-10.5 [facility] Comment on above: Performed By: #### A HEATHER DECKER, ELEANOR, GFR, CBC, ADIFF, LIP #### [address] [address] RBC 4.34 10 6/mcL Normal 4.10-5.30 [facility] Comment on above: Performed By: #### A HEATHER DECKER, ELEANOR, GFR, CBC, ADIFF, LIP #### [address] [address] WBC 6.7 10 3/mcL Normal 4.5-10.8 [facility] Comment on above: Performed By: #### A HEATHER DECKER, ELEANOR, GFR, CBC, ADIFF, LIP #### [address] [address] CMPon 02-17-2024 Albumin Level 3.5 G/dL Normal 3.5-5.0 [facility] Comment on above: Performed By: #### A HEATHER DECKER, ELEANOR, GFR, CBC, ADIFF, LIP #### [address] [address] Albumin/Globulin [Mass ratio] 1.1 {ratio} Normal 1.1-2.5 [facility] Comment on above: Performed By: #### A HEATHER DECKER, ELEANOR, GFR, CBC, ADIFF, LIP #### [address] [address] ALP [Catalytic activity/Vol] 122 U/L Normal 40-135 [facility] Comment on above: Performed By: #### A HEATHER DECKER, ELEANOR, GFR, CBC, ADIFF, LIP #### [address] [address] ALT [Catalytic activity/Vol] 35 U/L Normal 14-59 [facility] Comment on above: Performed By: #### A HEATHER DECKER, CMP, GFR, CBC, ADIFF, LIP #### [address] [address] AST [Catalytic activity/Vol] 27 U/L Normal 10-40 [facility] Comment on above: Performed By: #### A HEATHER DECKER, CMP, GFR, CBC, ADIFF, LIP #### [address] [address] Bili Total 0.4 mg/dL Normal 0.2-1.0 [facility] Comment on above: Result Comment: Use of this assay is not recommended for patients undergoing treatment with eltrombopag due to the potential for falsely elevated results. Performed By: #### A HEATHER DECKER, CMP, GFR, CBC, ADIFF, LIP #### [address] [address] BUN/Creatinine Ratio 12 ratio Normal 7-27 [facility] Comment on above: Performed By: #### A HEATHER DECKER, ELEANOR, GFR, CBC, ADIFF, LIP #### [address] [address] Calcium [Mass/Vol] 8.8 mg/dL Normal 8.4-10.2 [facility] Comment on above: Performed By: #### A HEATHER DECKER, ELEANOR, GFR, CBC, ADIFF, LIP #### [address] [address] Chloride [Moles/Vol] 105 mmol/L Normal 98-107 [facility] Comment on above: Performed By: #### A HEATHER DECKER, ELEANOR, GFR, CBC, ADIFF, LIP #### [address] [address] CO2 [Moles/Vol] 33 mmol/L High 22-29 [facility] Comment on above: Performed By: #### A HEATHER DECKER, ELEANOR, GFR, CBC, ADIFF, LIP #### [address] [address] Creatinine [Mass/Vol] 0.96 mg/dL Normal 0.55-1.02 [facility] Comment on above: Result Comment: Test ing performed on Siemens Dimension EXL analyzer using a modified kinetic Oralia technique. Performed By: #### A HEATHER DECKER, ELEANOR, GFR, CBC, ADIFF, LIP #### [address] [address] Electrolyte Balance 4.0 mEq/L Normal 4.0-15.0 [facility] Comment on above: Performed By: #### A HEATHER DECKER, ELEANOR, GFR, CBC, ADIFF, LIP #### [address] [address] Globulin 3.3 G/dL Normal [facility] Comment on above: Performed By: #### A HEATHER DECKER, ELEANOR, GFR, CBC, ADIFF, LIP #### [address] [address] Glucose [Mass/Vol] 103 mg/dL Normal 70-105 [facility] Comment on above: Performed By: #### A HEATHER DECKER, ELEANOR, GFR, CBC, ADIFF, LIP #### [address] [address] Potassium [Moles/Vol] 4.3 mmol/L Normal 3.5-5.1 [facility] Comment on above: Performed By: #### A HEATHER DECKER, ELEANOR, GFR, CBC, ADIFF, LIP #### [address] [address] Sodium [Moles/Vol] 142 mmol/L Normal 136-145 [facility] Comment on above: Performed By: #### A HEATHER DECKER, ELEANOR, GFR, CBC, ADIFF, LIP #### [address] [address] Total Protein 6.8 G/dL Normal 6.4-8.2 [facility] Comment on above: Performed By: #### A HEATHER DECKER, ELEANOR, GFR, CBC, ADIFF, LIP #### [address] [address] Urea nitrogen [Mass/Vol] 12 mg/dL Normal 7-18 [facility] Comment on above: Performed By: #### A HEATHER DECKER, CMP, GFR, CBC, ADIFF, LIP #### [address] [address] DIMERon 02-17-2024 D-Dimer 3269 ng/mL D-DU High 0-230 [facility] Comment on above: Result Comment: Resu [...] DECKER, ELEANOR, GFR, CBC, ADIFF, LIP #### [address] [address] FEon 02-17-2024 Iron [Mass/Vol] 93 ug/dL Normal 50-170 [facility] Comment on above: Performed By: #### A HEATHER DECKER, CMP, GFR, CBC, ADIFF, LIP #### [address] [address] Sal 02-17-2024 Ferritin [Mass/Vol] 43.0 ng/mL Normal 8.0-252.0 [facility] Comment on above: Performed By: #### A HEATHER DECKER, CMP, GFR, CBC, ADIFF, LIP #### [place] [address] LABORATORYOrdered By: SYSTEM SYSTEM on 02-17-2024 Albumin [...] 02-17-2024 Cholesterol [Mass/Vol] 224 mg/dL High 0-200 [facility] Comment on above: Result Comment: Chol esterol Reference Interval: Less than 200 Desirable 200-239 Borderline high risk 240 and above High risk Performed By: #### A JERONIMO, MDW, CMP, GFR, CBC, ADIFF, LIP #### [place] [id number] [place], [place] [address] Cholesterol in HDL [Mass/Vol] 46 mg/dL Normal 40-60 [facility] Comment on above: Performed By: #### A HEATHER DECKER, CMP, GFR, CBC, ADIFF, LIP #### [address] [address] Cholesterol in LDL [Mass/Vol] 145 mg/dL High 0-130 [facility] Comment on above: Performed By: #### A HEATHER DECKER, CMP, GFR, CBC, ADIFF, LIP #### [address] [address] Triglyceride [Mass/Vol] 165 mg/dL High 0-150 [facility] Comment on above: Result Comment: Trig lyceride Reference Interval: Less than 150 Normal 150-199 Borderline high risk 200-499 High risk 500 or higher Very high risk Performed By: #### A HEATHER DECKER, CMP, GFR, CBC, ADIFF, LIP #### [address] [address] .Auto Diffon 11-10-2023 Basophil, Absolute 0.0 10 3/mcL Normal 0.0-0.2 [facility] ([place]) Comment on above: Performed By: #### A DIFF, FE, DIMER, FERR, ANEU, CBC #### [address] [address] Basophils/100 WBC (Bld) 0.6 % Normal 0.0-2.5 [facility] ([place]) Comment on above: Performed By: #### A DIFF, FE, DIMER, FERR, ANEU, CBC #### [address] [address] Eosinophil, Absolute 0.3 10 3/mcL Normal 0.0-0.4 [facility] ([place]) Comment on above: Performed By: #### A DIFF, FE, DIMER, FERR, ANEU, CBC #### [address] [address] Eosinophils/100 WBC (Bld) 3.7 % Normal 0.0-7.0 [facility] ([place]) Comment on above: Performed By: #### A DIFF, FE, DIMER, FERR, ANEU, CBC #### [address] [address] Lymphocyte, Absolute 1.5 10 3/mcL Normal 0.8-3.9 [facility] ([place]) Comment on above: Performed By: #### A DIFF, FE, DIMER, FERR, ANEU, CBC #### [address] [address] Lymphocytes/100 WBC (Bld) 18.8 % Normal 10.0-50.0 [facility] ([place]) Comment on above: Performed By: #### A DIFF, FE, DIMER, FERR, ANEU, CBC #### [address] [address] Monocyte, Absolute 0.4 10 3/mcL Normal 0.2-1.0 [facility] ([place]) Comment on above: Performed By: #### A DIFF, FE, DIMER, FERR, ANEU, CBC #### [address] [address] Monocytes/100 WBC (Bld) 5.2 % Normal 1.7-13.0 [facility] ([place]) Comment on above: Performed By: #### A DIFF, FE, DIMER, FERR, ANEU, CBC #### [address] [address] Neutrophils/100 WBC (Bld) 71.7 % Normal 37.0-80.0 [facility] ([place]) Comment on above: Performed By: #### A DIFF, FE, DIMER, FERR, ANEU, CBC #### [address] [address] .NEUABSon 11-10-2023 Neutrophil, Absolute 5.7 10 3/mcL Normal 2.9-6.2 [facility] ([place]) Comment on above: Performed By: #### A DIFF, FE, DIMER, FERR, ANEU, CBC #### [address] [id number] CBCon 11-10-2023 Erythrocyte distribution width (RBC) [Ratio] 21.2 % High 11.5-14.5 [facility] ([place]) Comment on above: Performed By: #### A DIFF, FE, DIMER, FERR, ANEU, CBC #### [address] [address] Hematocrit (Bld) [Volume fraction] 34.1 % Low 37.0-47.0 [facility] ([place]) Comment on above: Performed By: #### A DIFF, FE, DIMER, FERR, ANEU, CBC #### [address] [address] Hgb 10.9 G/dL Low 12.0-16.0 [facility] ([place]) Comment on above: Performed By: #### A DIFF, FE, DIMER, FERR, ANEU, CBC #### [address] [address] MCH (RBC) [Entitic mass] 22.7 pg Low 27.0-31.2 [facility] ([place]) Comment on above: Performed By: #### A DIFF, FE, DIMER, FERR, ANEU, CBC #### [address] [address] MCHC 32.0 G/dL Low 33.0-37.0 [facility] ([place]) Comment on above: Performed By: #### A DIFF, FE, DIMER, FERR, ANEU, CBC #### [address] [address] MCV (RBC) [Entitic vol] 70.9 fL Low 80.0-94.0 [facility] ([place]) Comment on above: Performed By: #### A DIFF, FE, DIMER, FERR, ANEU, CBC #### [address] [address] Platelet 323 10 3/mcL Normal 130-400 [facility] ([place]) Comment on above: Performed By: #### A DIFF, FE, DIMER, FERR, ANEU, CBC #### [address] [address] Platelet mean volume (Bld) [Entitic vol] 7.1 fL Low 7.4-10.4 [facility] ([place]) Comment on above: Performed By: #### A DIFF, FE, DIMER, FERR, ANEU, CBC #### [address] [address] RBC 4.81 10 6/mcL Normal 4.20-5.40 [facility] ([place]) Comment on above: Performed By: #### A DIFF, FE, DIMER, FERR, ANEU, CBC #### [address] [address] WBC 7.9 10 3/mcL Normal 4.6-10.8 [facility] ([place]) Comment on above: Performed By: #### A DIFF, FE, DIMER, FERR, ANEU, CBC #### [address] [address] DIMERon 11-10-2023 D-Dimer 4160 ng/mL D-DU High 0-230 [facility] ([place]) Comment on above: Result Comment: Resu lts [...] DIFF, FE, DIMER, FERR, ANEU, CBC #### [address] [address] FEon 11-10-2023 Iron [Mass/Vol] 35 ug/dL Low 50-170 [facility] ([place]) Comment on above: Performed By: #### A DIFF, FE, DIMER, FERR, ANEU, CBC #### [address] [address] Sal 11-10-2023 Ferritin [Mass/Vol] 253.0 ng/mL High 8.0-252.0 [facility] ([place]) Comment on above: Performed By: #### A DIFF, FE, DIMER, FERR, ANEU, CBC #### [address] [address] RETO (AO)on 11-10-2023 Immature Retic Fraction 0.51 IRF High 0.20-0.46 [facility] ([place]) Comment on above: Performed By: #### A DIFF, FE, DIMER, FERR, ANEU, CBC #### [address] [address] Reticulocytes, Auto 2.2 % Normal 0.2-2.3 [facility] ([place] Comment on above: Performed By: #### A DIFF, FE, DIMER, FERR, ANEU, CBC #### [address] [address] .Auto Diffon 10-28-2023 Basophil, Absolute 0.0 10 3/mcL Normal 0.0-0.2 [facility] ([place] Comment on above: Performed By: #### A DIFF, FE, DIMER, FERR, ANEU, CBC #### [address] [address] Basophils/100 WBC (Bld) 0.5 % Normal 0.0-2.5 [facility] ([place]) Comment on above: Performed By: #### A DIFF, FE, DIMER, FERR, ANEU, CBC #### [address] [address] Eosinophil, Absolute 0.3 10 3/mcL Normal 0.0-0.4 [facility] ([place]) Comment on above: Performed By: #### A DIFF, FE, DIMER, FERR, ANEU, CBC #### [address] [address] Eosinophils/100 WBC (Bld) 3.5 % Normal 0.0-7.0 [facility] ([place]) Comment on above: Performed By: #### A DIFF, FE, DIMER, FERR, ANEU, CBC #### [address] [address] Lymphocyte, Absolute 1.7 10 3/mcL Normal 0.8-3.9 [facility] ([place] Comment on above: Performed By: #### A DIFF, FE, DIMER, FERR, ANEU, CBC #### [address] [address] Lymphocytes/100 WBC (Bld) 20.2 % Normal 10.0-50.0 [facility] ([place] Comment on above: Performed By: #### A DIFF, FE, DIMER, FERR, ANEU, CBC #### [address] [address] Monocyte, Absolute 0.6 10 3/mcL Normal 0.2-1.0 [facility] ([place] Comment on above: Performed By: #### A DIFF, FE, DIMER, FERR, ANEU, CBC #### [address] [address] Monocytes/100 WBC (Bld) 6.9 % Normal 1.7-13.0 [facility] ([place] Comment on above: Performed By: #### A DIFF, FE, DIMER, FERR, ANEU, CBC #### [address] [address] Neutrophils/100 WBC (Bld) 68.9 % Normal 37.0-80.0 [facility] ([place] Comment on above: Performed By: #### A DIFF, FE, DIMER, FERR, ANEU, CBC #### [address] [address] .GFRon 10-28-2023 GFR Non- 64 ml/min/1.73sqm Normal [facility] ([place]) Comment on above: Result Comment: GFR Population [...] DIFF, FE, DIMER, FERR, ANEU, CBC #### [address] [address] GFR 78 ml/min/1.73sqm Normal [facility] ([place]) Comment on above: Result Comment: GFR Population [...] DIFF, FE, DIMER, FERR, ANEU, CBC #### [address] [address] .MDWon 10-28-2023 Monocyte Distribution Width 20.70 High 0.00-20.00 [facility] ([place]) Comment on above: Result Comment: For adults in ED, MDW>20.0 may be associated with a higher risk of sepsis during the first 12hrs of hospital admission Performed By: #### A DIFF, FE, DIMER, FERR, ANEU, CBC #### [address] [address] .NEUABSon 10-28-2023 Neutrophil, Absolute 5.9 10 3/mcL Normal 2.9-6.2 [facility] ([place] Comment on above: Performed By: #### A DIFF, FE, DIMER, FERR, ANEU, CBC #### [address] [address] BMPon 10-28-2023 BUN/Creatinine Ratio 26 ratio Normal 7-27 [facility] ([place] Comment on above: Performed By: #### A DIFF, FE, DIMER, FERR, ANEU, CBC #### [place] [id number] Calcium [Mass/Vol] 9.1 mg/dL Normal 8.4-10.2 [facility] ([place]) Comment on above: Performed By: #### A DIFF, FE, DIMER, FERR, ANEU, CBC #### [place] [address] Chloride [Moles/Vol] 100 mmol/L Normal 98-107 [facility]) Comment on above: Performed By: #### A DIFF, FE, DIMER, FERR, ANEU, CBC #### [place] [address] CO2 [Moles/Vol] 27 mmol/L Normal 22-29 [facility] ([place] Comment on above: Performed By: #### A DIFF, FE, DIMER, FERR, ANEU, CBC #### [place] [address] Creatinine [Mass/Vol] 0.93 mg/dL Normal 0.55-1.02 [facility] ([place] Comment on above: Performed By: #### A DIFF, FE, DIMER, FERR, ANEU, CBC #### [place] [phone] Electrolyte Balance 10.0 mEq/L Normal 4.0-15.0 [facility] [place] Comment on above: Performed By: #### A DIFF, FE, DIMER, FERR, ANEU, CBC #### [place] [address] Glucose [Mass/Vol] 111 mg/dL High 70-105 [facility] ([place] Comment on above: Performed By: #### A DIFF, FE, DIMER, FERR, ANEU, CBC #### [address] [address] Potassium [Moles/Vol] 4.1 mmol/L Normal 3.5-5.1 [facility] ([place] Comment on above: Performed By: #### A DIFF, FE, DIMER, FERR, ANEU, CBC #### [place] [phone] Sodium [Moles/Vol] 137 mmol/L Normal 136-145 [facility] ([place] Comment on above: Performed By: #### A DIFF, FE, DIMER, FERR, ANEU, CBC #### [place] [address] Urea nitrogen [Mass/Vol] 24 mg/dL High 7-18 [facility] ([place] Comment on above: Performed By: #### A DIFF, FE, DIMER, FERR, ANEU, CBC #### [place] [address] CBCon 10-28-2023 Erythrocyte distribution width (RBC) [Ratio] 19.3 % High 11.5-14.5 [facility] ([place] Comment on above: Performed By: #### A DIFF, FE, DIMER, FERR, ANEU, CBC #### [place] [address]47 Hematocrit (Bld) [Volume fraction] 33.4 % Low 37.0-47.0 [facility] ([place] Comment on above: Performed By: #### A DIFF, FE, DIMER, FERR, ANEU, CBC #### [place] [address]47 Hgb 10.6 G/dL Low 12.0-16.0 [facility] ([place]) Comment on above: Performed By: #### A DIFF, FE, DIMER, FERR, ANEU, CBC #### [place] [address]2747 MCH (RBC) [Entitic mass] 22.2 pg Low 27.0-31.2 [facility] ([place] Comment on above: Performed By: #### A DIFF, FE, DIMER, FERR, ANEU, CBC #### [address] [address] MCHC 31.6 G/dL Low 33.0-37.0 [facility] ([place]) Comment on above: Performed By: #### A DIFF, FE, DIMER, FERR, ANEU, CBC #### [address] [address] MCV (RBC) [Entitic vol] 70.4 fL Low 80.0-94.0 [facility] ([place]) Comment on above: Performed By: #### A DIFF, FE, DIMER, FERR, ANEU, CBC #### [address] [address] Platelet 367 10 3/mcL Normal 130-400 [facility] ([place]) Comment on above: Performed By: #### A DIFF, FE, DIMER, FERR, ANEU, CBC #### [address] [address] Platelet mean volume (Bld) [Entitic vol] 7.2 fL Low 7.4-10.4 [facility] ([place]) Comment on above: Performed By: #### A DIFF, FE, DIMER, FERR, ANEU, CBC #### [address] [address] RBC 4.74 10 6/mcL Normal 4.20-5.40 [facility] ([place]) Comment on above: Performed By: #### A DIFF, FE, DIMER, FERR, ANEU, CBC #### [address] [address] WBC 8.5 10 3/mcL Normal 4.6-10.8 [facility] ([place]) Comment on above: Performed By: #### A DIFF, FE, DIMER, FERR, ANEU, CBC #### [address] [address] [address] ANGIOGRAPHY CHEST W/CONTR Suki 10-28-2023 CT [...] 10/28/2023 10:48:13 AM Ordering Provider: ROMAINE George [facility] ([place]) LABORATORYOrdered By: SYSTEM SYSTEM on 10-28-2023 Basophil, [...] a homogeneous sandwich chemiluminescent immunoassay based on viavoo technology. Urea nitrogen [Mass/Vol] 24 mg/dL High 7 - 18 mg/dL AO ADM SS Urea nitrogen/Creatinine [Mass ratio] 26 ratio Normal 7 - 27 ratio AO ADM SS WBC (Bld) [#/Vol] 8.5 103/mcL Normal 4.6 - 10.8 10^3/mcL AO Workflow SS PBNPon 10-28-2023 Natriuretic peptide B (Bld) [Mass/Vol] 64 pg/mL Normal 0-125 [facility] ([place]) Comment on above: Result Comment: NT-p roBNP results of less than 300 pg/mL effectively rules out acute congestive heart failure with 99% negative predictive value. Performed By: #### A DIFF, FE, DIMER, FERR, ANEU, CBC #### [place] [phone] TROPHSon 10-28-2023 High Sensitivity Troponin I <4 Normal 0-51 [facility] ([place]) Comment on above: Result Comment: High Sensitive Troponin I Reference Ranges: Female: 0-51 ng/L Male: 0-76 ng/L Testing performed on [facility] using a homogeneous sandwich chemiluminescent immunoassay based on viavoo technology. Performed By: #### A DIFF, FE, DIMER, FERR, ANEU, CBC #### [address] [address] .Auto Diffon 10-27-2023 Basophil, Absolute 0.1 10 3/mcL Normal 0.0-0.2 [facility] ([place] Comment on above: Performed By: #### V IDH, ANEU, DIMER, CBC, GFR, CMP, FT4, TSH, FERR, ADIFF #### [place] [address] Basophils/100 WBC (Bld) 0.7 % Normal 0.0-2.5 [facility] ([place] Comment on above: Performed By: #### V IDH, ANEU, DIMER, CBC, GFR, CMP, FT4, TSH, FERR, ADIFF #### [address] [address] Eosinophil, Absolute 0.3 10 3/mcL Normal 0.0-0.4 [facility] ([place] Comment on above: Performed By: #### V IDH, ANEU, DIMER, CBC, GFR, CMP, FT4, TSH, FERR, ADIFF #### [address] [address] Eosinophils/100 WBC (Bld) 3.5 % Normal 0.0-7.0 [facility] ([place]) Comment on above: Performed By: #### V IDH, ANEU, DIMER, CBC, GFR, CMP, FT4, TSH, FERR, ADIFF #### [address] [address] Lymphocyte, Absolute 1.7 10 3/mcL Normal 0.8-3.9 [facility] ([place] Comment on above: Performed By: #### V IDH, ANEU, DIMER, CBC, GFR, CMP, FT4, TSH, FERR, ADIFF #### [address] [address] Lymphocytes/100 WBC (Bld) 19.4 % Normal 10.0-50.0 [facility] ([place]) Comment on above: Performed By: #### V IDH, ANEU, DIMER, CBC, GFR, CMP, FT4, TSH, FERR, ADIFF #### [address] [address] Monocyte, Absolute 0.6 10 3/mcL Normal 0.2-1.0 [facility] ([place] Comment on above: Performed By: #### V IDH, ANEU, DIMER, CBC, GFR, CMP, FT4, TSH, FERR, ADIFF #### [address] [address] Monocytes/100 WBC (Bld) 6.5 % Normal 1.7-13.0 [facility] ([place]) Comment on above: Performed By: #### V IDH, ANEU, DIMER, CBC, GFR, CMP, FT4, TSH, FERR, ADIFF #### [address] [address] Neutrophils/100 WBC (Bld) 69.9 % Normal 37.0-80.0 [facility] ([place]) Comment on above: Performed By: #### V IDH, ANEU, DIMER, CBC, GFR, CMP, FT4, TSH, FERR, ADIFF #### [address] [address] .GFRon 10-27-2023 GFR 85 ml/min/1.73sqm Normal [facility] ([place]) Comment on above: Result Comment: GFR Population [...] DIFF, FE, DIMER, FERR, ANEU, CBC #### [address] [address] GFR Non- 70 ml/min/1.73sqm Normal [facility] ([place]) Comment on above: Result Comment: GFR Population [...] DIFF, FE, DIMER, FERR, ANEU, CBC #### [address] [address] .NEUABSon 10-27-2023 Neutrophil, Absolute 6.1 10 3/mcL Normal 2.9-6.2 [facility] ([place] Comment on above: Performed By: #### A DIFF, FE, DIMER, FERR, ANEU, CBC #### [place] [address] CBCon 10-27-2023 Erythrocyte distribution width (RBC) [Ratio] 19.3 % High 11.5-14.5 [facility] ([place]) Comment on above: Performed By: #### V IDH, ANEU, DIMER, CBC, GFR, CMP, FT4, TSH, FERR, ADIFF #### [place] [address] Hematocrit (Bld) [Volume fraction] 34.6 % Low 37.0-47.0 [facility] ([place]) Comment on above: Performed By: #### V IDH, ANEU, DIMER, CBC, GFR, CMP, FT4, TSH, FERR, ADIFF #### [place] [address] Hgb 10.7 G/dL Low 12.0-16.0 [facility] ([place]) Comment on above: Performed By: #### V IDH, ANEU, DIMER, CBC, GFR, CMP, FT4, TSH, FERR, ADIFF #### [place] [phone] MCH (RBC) [Entitic mass] 21.7 pg Low 27.0-31.2 [facility] ([place]) Comment on above: Performed By: #### V IDH, ANEU, DIMER, CBC, GFR, CMP, FT4, TSH, FERR, ADIFF #### [place] [address] MCHC 30.8 G/dL Low 33.0-37.0 [facility] ([place] Comment on above: Performed By: #### V IDH, ANEU, DIMER, CBC, GFR, CMP, FT4, TSH, FERR, ADIFF #### [address] [address] MCV (RBC) [Entitic vol] 70.4 fL Low 80.0-94.0 [facility] ([place] Comment on above: Performed By: #### V IDH, ANEU, DIMER, CBC, GFR, CMP, FT4, TSH, FERR, ADIFF #### [address] [address] Platelet 383 10 3/mcL Normal 130-400 [facility] ([place]) Comment on above: Performed By: #### V IDH, ANEU, DIMER, CBC, GFR, CMP, FT4, TSH, FERR, ADIFF #### [address] [address] Platelet mean volume (Bld) [Entitic vol] 7.3 fL Low 7.4-10.4 [facility] ([place] Comment on above: Performed By: #### V IDH, ANEU, DIMER, CBC, GFR, CMP, FT4, TSH, FERR, ADIFF #### [address] [address] RBC 4.91 10 6/mcL Normal 4.20-5.40 [facility] ([place]) Comment on above: Performed By: #### V IDH, ANEU, DIMER, CBC, GFR, CMP, FT4, TSH, FERR, ADIFF #### [address] [address] WBC 8.7 10 3/mcL Normal 4.6-10.8 [facility] ([place]) Comment on above: Performed By: #### V IDH, ANEU, DIMER, CBC, GFR, CMP, FT4, TSH, FERR, ADIFF #### [address] [address] CMPon 10-27-2023 Albumin Level 3.6 G/dL Normal 3.5-5.0 [facility] Comment on above: Performed By: #### A DIFF, FE, DIMER, FERR, ANEU, CBC #### [address] [address] Albumin/Globulin [Mass ratio] 0.9 {ratio} Low 1.1-2.5 [facility] ([place]) Comment on above: Performed By: #### A DIFF, FE, DIMER, FERR, ANEU, CBC #### [address] [address] ALP [Catalytic activity/Vol] 157 U/L High 40-135 [facility] ([place]) Comment on above: Performed By: #### A DIFF, FE, DIMER, FERR, ANEU, CBC #### [address] [address] ALT [Catalytic activity/Vol] 22 U/L Normal 14-59 [facility] ([place] Comment on above: Performed By: #### A DIFF, FE, DIMER, FERR, ANEU, CBC #### [address] [address] AST [Catalytic activity/Vol] 14 U/L Normal 10-40 [facility] ([place] Comment on above: Performed By: #### A DIFF, FE, DIMER, FERR, ANEU, CBC #### [address] [address] Bili Total 0.3 mg/dL Normal 0.2-1.0 [facility] ([place]) Comment on above: Result Comment: Use of this assay is not recommended for patients undergoing treatment with eltrombopag due to the potential for falsely elevated results. Performed By: #### A DIFF, FE, DIMER, FERR, ANEU, CBC #### [address] [address] BUN/Creatinine Ratio 23 ratio Normal 7-27 [facility] ([place] Comment on above: Performed By: #### A DIFF, FE, DIMER, FERR, ANEU, CBC #### [address] [address] Calcium [Mass/Vol] 9.2 mg/dL Normal 8.4-10.2 [facility] ([place] Comment on above: Performed By: #### A DIFF, FE, DIMER, FERR, ANEU, CBC #### [address] [address] Chloride [Moles/Vol] 99 mmol/L Normal 98-107 [facility] ([place] Comment on above: Performed By: #### A DIFF, FE, DIMER, FERR, ANEU, CBC #### [place] [address] CO2 [Moles/Vol] 29 mmol/L Normal 22-29 [facility] ([place] Comment on above: Performed By: #### A DIFF, FE, DIMER, FERR, ANEU, CBC #### [place] [address] Creatinine [Mass/Vol] 0.86 mg/dL Normal 0.55-1.02 [facility] ([place]) Comment on above: Performed By: #### A DIFF, FE, DIMER, FERR, ANEU, CBC #### [address] [address] Electrolyte Balance 7.0 mEq/L Normal 4.0-15.0 [facility] [place] Comment on above: Performed By: #### A DIFF, FE, DIMER, FERR, ANEU, CBC #### [address] [address] Globulin 4.2 G/dL Normal [facility] ([place]) Comment on above: Performed By: #### A DIFF, FE, DIMER, FERR, ANEU, CBC #### [address] [address] Glucose [Mass/Vol] 100 mg/dL Normal 70-105 [facility] ([place] Comment on above: Performed By: #### A DIFF, FE, DIMER, FERR, ANEU, CBC #### [address] [address] Potassium [Moles/Vol] 4.4 mmol/L Normal 3.5-5.1 [facility] ([place] Comment on above: Performed By: #### A DIFF, FE, DIMER, FERR, ANEU, CBC #### [address] [address] Sodium [Moles/Vol] 135 mmol/L Low 136-145 [facility] ([place] Comment on above: Performed By: #### A DIFF, FE, DIMER, FERR, ANEU, CBC #### [address] [address] Total Protein 7.8 G/dL Normal 6.4-8.2 [facility] ([place]) Comment on above: Performed By: #### A DIFF, FE, DIMER, FERR, ANEU, CBC #### [address] [address] Urea nitrogen [Mass/Vol] 20 mg/dL High 7-18 [facility] ([place] Comment on above: Performed By: #### A DIFF, FE, DIMER, FERR, ANEU, CBC #### [address] [address] DIMERon 10-27-2023 D-Dimer 4310 ng/mL D-DU High 0-230 [facility] ([place]) Comment on above: Result Comment: Resu lts [...] DIFF, FE, DIMER, FERR, ANEU, CBC #### [address] [place] [address] Sal 10-27-2023 Ferritin [Mass/Vol] 10.0 ng/mL Normal 8.0-252.0 [facility] [place] Comment [place] above: Performed By: #### A DIFF, FE, DIMER, FERR, ANEU, CBC #### [address] [address] FT4on 10-27-2023 Free T4 [Mass/Vol] 1.01 ng/dL Normal 0.76-1.46 [facility] ([place] Comment on above: Performed By: #### A DIFF, FE, DIMER, FERR, ANEU, CBC #### [place] [address] TSHon 10-27-2023 TSH Qn 2.22 m[IU]/L Normal 0.36-3.74 [facility] ([place]) Comment on above: Performed By: #### A DIFF, FE, DIMER, FERR, ANEU, CBC #### [address] [address] VIDHon 10-27-2023 Vit. D 25-Hydroxy 29.6 ng/mL Normal [facility] ([place]) Comment on above: Result Comment: Inte rpretive Values Based on Total 25(OH) Vitamin D: Deficient <20 ng/mL Insufficient 20 - <30 ng/mL Sufficient 30-100 ng/mL Performed By: #### A DIFF, FE, DIMER, FERR, ANEU, CBC #### [address] [address] .Auto Diffon 12-22-2022 Basophil, Absolute 0.1 10 3/mcL Normal 0.0-0.2 [facility] ([place] Comment on above: Performed By: #### A DIFF, FE, DIMER, FERR, ANEU, CBC #### [address] [address] Basophils/100 WBC (Bld) 0.8 % Normal 0.0-2.5 [facility] ([place] Comment on above: Performed By: #### A DIFF, FE, DIMER, FERR, ANEU, CBC #### [address] [address] Eosinophil, Absolute 0.5 10 3/mcL High 0.0-0.4 [facility] ([place] Comment on above: Performed By: #### A DIFF, FE, DIMER, FERR, ANEU, CBC #### [address] [address] Eosinophils/100 WBC (Bld) 7.1 % High 0.0-7.0 [facility] ([place] Comment on above: Performed By: #### A DIFF, FE, DIMER, FERR, ANEU, CBC #### [address] [address] Lymphocyte, Absolute 1.8 10 3/mcL Normal 0.8-3.9 [facility] ([place]) Comment on above: Performed By: #### A DIFF, FE, DIMER, FERR, ANEU, CBC #### [address] [address] Lymphocytes/100 WBC (Bld) 26.6 % Normal 10.0-50.0 [facility] ([place]) Comment on above: Performed By: #### A DIFF, FE, DIMER, FERR, ANEU, CBC #### [address] [address] Monocyte, Absolute 0.4 10 3/mcL Normal 0.2-1.0 [facility] ([place] Comment on above: Performed By: #### A DIFF, FE, DIMER, FERR, ANEU, CBC #### [address] [address] Monocytes/100 WBC (Bld) 5.3 % Normal 1.7-13.0 [facility] ([place] Comment on above: Performed By: #### A DIFF, FE, DIMER, FERR, ANEU, CBC #### [address] [address] Neutrophils/100 WBC (Bld) 60.2 % Normal 37.0-80.0 [facility] ([place] Comment on above: Performed By: #### A DIFF, FE, DIMER, FERR, ANEU, CBC #### [address] [address] .NEUABSon 12-22-2022 Neutrophil, Absolute 4.0 10 3/mcL Normal 2.9-6.2 [facility] ([place] Comment on above: Performed By: #### A DIFF, FE, DIMER, FERR, ANEU, CBC #### [address] [address] CBCon 12-22-2022 Erythrocyte distribution width (RBC) [Ratio] 17.5 % High 11.5-14.5 [facility] ([place] Comment on above: Performed By: #### A DIFF, FE, DIMER, FERR, ANEU, CBC #### [place] [address] Hematocrit (Bld) [Volume fraction] 33.4 % Low 37.0-47.0 [facility] ([place] Comment on above: Performed By: #### A DIFF, FE, DIMER, FERR, ANEU, CBC #### [place] [address] Hgb 10.5 G/dL Low 12.0-16.0 [facility] ([place] Comment on above: Performed By: #### A DIFF, FE, DIMER, FERR, ANEU, CBC #### [place] [address]2747 MCH (RBC) [Entitic mass] 23.6 pg Low 27.0-31.2 [facility] ([place] Comment on above: Performed By: #### A DIFF, FE, DIMER, FERR, ANEU, CBC #### [place] [address] MCHC 31.5 G/dL Low 33.0-37.0 [facility] ([place] Comment on above: Performed By: #### A DIFF, FE, DIMER, FERR, ANEU, CBC #### [place] [address] MCV (RBC) [Entitic vol] 74.9 fL Low 80.0-94.0 [facility] ([place] Comment on above: Performed By: #### A DIFF, FE, DIMER, FERR, ANEU, CBC #### [address] [address] Platelet 304 10 3/mcL Normal 130-400 [facility] ([place] Comment on above: Performed By: #### A DIFF, FE, DIMER, FERR, ANEU, CBC #### [address] [address] Platelet mean volume (Bld) [Entitic vol] 7.7 fL Normal 7.4-10.4 [facility] ([place] Comment on above: Performed By: #### A DIFF, FE, DIMER, FERR, ANEU, CBC #### [place] [address] RBC 4.46 10 6/mcL Normal 4.20-5.40 [facility] ([place] Comment on above: Performed By: #### A DIFF, FE, DIMER, FERR, ANEU, CBC #### [place] [address] WBC 6.7 10 3/mcL Normal 4.6-10.8 [facility] ([place] Comment on above: Performed By: #### A DIFF, FE, DIMER, FERR, ANEU, CBC #### [address] [address] Sal 12-22-2022 Ferritin [Mass/Vol] 14.0 ng/mL Normal 8.0-252.0 [facility] [place] Comment on above: Performed By: #### F ERR #### [address] [address] LABORATORYOrdered By: SYSTEM SYSTEM on 12-22-2022 Ferritin [...] Immature Retic Fraction 0.45 IRF Normal 0.20-0.46 [facility] ([place]) Comment on above: Performed By: #### A DIFF, FE, DIMER, FERR, ANEU, CBC #### [place] [phone] Reticulocytes, Auto 1.6 % Normal 0.2-2.3 [facility] [place] Comment on above: Performed By: #### A DIFF, FE, DIMER, FERR, ANEU, CBC #### [address] [address] VIDHon 12-22-2022 Vit. D 25-Hydroxy 25.7 ng/mL Normal [facility] ([place]) Comment on above: Result Comment: Inte rpretive Values Based on Total 25(OH) Vitamin D: Deficient <20 ng/mL Insufficient 20 - <30 ng/mL Sufficient 30-100 ng/mL Performed By: #### A DIFF, FE, DIMER, FERR, ANEU, CBC #### [place] [address] LABORATORYOrdered By: SYSTEM SYSTEM on 06-29-2022 Albumin [...] >100,000 COL/ML MIXED VEGA-PLEASE REPEAT-POSSIBLE CONTAMIN Normal [facility] Comment on above: Order Comment: Campu s: MAS DIPSTICKon 07-19-2021 POC APPEARANCE HAZY Normal CLEAR [facility] Comment on above: Order Comment: Campu s: MAS POC BILIRUBIN Negative Normal NEGATIVE [facility] Comment on above: Order Comment: Campu s: MAS POC BLOOD Negative Normal NEGATIVE [facility] Comment on above: Order Comment: Campu s: [facility] POC COLOR YELLOW Normal [facility] Comment on above: Order Comment: Campu s: [facility] POC KETONE 5 MG/DL Normal NEGATIVE [facility] Comment on above: Order Comment: Campu s: MAS POC LE[place] EST 70 BRICE/uL [facility]: Order Comment: Campu [facility]: [facility] POC NITRITE Negative Normal NEGATIVE [facility] Comment on above: Order Comment: Campu s: MAS POC PROTEIN 30 MG/DL Normal NEGATIVE [facility] Comment on above: Order Comment: Campu s: [facility] POC SPEC GRAV 1.030 Normal 1.005-1.03 0 [facility]: Order Comment: Camp[facility]: [facility] POC UA GLUCOSE NORMAL Normal NORMAL [facility]: Order Comment: Campu [facility]: [facility] POC UA PH 5.0 Normal 5-6 [facility] [facility] Comment on above: Order Comment: Campu s: MAS POC UROBIL 1.0 MG/DL Normal NORMAL [facility] Comment on above: Order Comment: Campu s: MAS MSCon 07-19-2021 [facility] REPORT Normal [facility] DATE OF SERVICE: 11/2021 REASON FOR [...] urine for [facility] PATIENT NAME: RAIN MURPHY [address] Mathur MEDICAL REC #: [id number] [place] [address] [facility] REPORT STATCARE PHYSICIAN culture. She should drink a lot of fluid, Tylenol as needed, and follow with her doctor if there is no improvement. Patient understood and agreed. Bridger Croft MD [id number] [facility] File#: [id number] END OF DOCUMENT / CHANGE LOG FOLLOWS Last Edited By Elec. Signed By Bridger Croft MD #PAWPR Bridger Croft MD #PAWPR on 07/24/2021 13:38 ET on 07/24/2021 13:38 ET Revision Number - 2 Verified/Reviewed by 07/24/[address] [facility] PATIENT NAME: RAIN MURPHY Lois [address] Mathur MEDICAL REC #: [id number] [place] [address] [facility] REPORT STATCARE PHYSICIAN Normal [facility] LABORATORYOrdered By: Fiordaliza Alford on 03-15-2021 Beta HCG ( test) Ql (U) Negative (03/15/21 7:35 AM) [facility] Work Phone: LABORATORYOrdered By: SYSTEM SYSTEM on [...] cm Dr. Berna Howell MD Work Phone: [facility] 01-04-2025 09:59-0400 Body mass index (BMI) [Ratio] 57.8 kg/m2 Dr. Berna Howell MD Work Phone: [facility] 01-04-2025 09:59-0400 Body weight 141.[address] Berna Howell MD Work Phone: [facility] 01-04-2025 09:59-0400 Diastolic blood pressure 70 mm[Hg] Dr. Berna Howell MD Work Phone: [facility] 01-04-2025 09:59-0400 Heart rate 71 /min Dr. Berna Howell MD Work Phone: [facility] 01-04-2025 09:59-0400 Respiratory rate 18 /min Dr. Berna Howell MD Work Phone: [facility] 01-04-2025 09:59-0400 SaO2% (BldA) [Mass fraction] 94 % Dr. Berna Howell MD Work Phone: [facility] 01-04-2025 09:59-0400 Systolic blood pressure 101 mm[Hg] Dr. Berna Howell MD Work Phone: [facility] 12-05-2024 09:30-0400 Body temperature 97.7 [degF] Dr. Berna Howell MD Work Phone: [facility] 12-05-2024 09:30-0400 Diastolic blood pressure 64 mm[Hg] Dr. Berna Howell MD Work Phone: [facility] 12-05-2024 09:30-0400 Heart rate 68 /min Dr. Berna Howell MD Work Phone: [facility] 12-05-2024 09:30-0400 Respiratory rate 16 /min Dr. Berna Howell MD Work Phone: [facility] 12-05-2024 09:30-0400 SaO2% (BldA) [Mass fraction] 94 % Dr. Berna Howell MD Work Phone: [facility] 12-05-2024 09:30-0400 Systolic blood pressure 116 mm[Hg] Dr. Berna Howell MD Work Phone: [facility] 12-05-2024 07:32-0400 Body height 154.[address] Berna Howell MD Work Phone: [facility] 12-05-2024 07:32-0400 Body mass index (BMI) [Ratio] 58.3 kg/m2 Dr. Berna Howell MD Work Phone: [facility] 12-05-2024 07:32-0400 Body weight [address] Berna Howell MD Work Phone: [facility] 07-11-2024 11:32-0400 Body temperature 98.2 [degF] Evans Nolan MD Work Phone: [facility] 07-11-2024 11:32-0400 Body weight 150.87 kg Evans Nolan MD Work Phone: [facility] 07-11-2024 11:32-0400 Diastolic blood pressure 76 mm[Hg] Evans Nolan MD Work Phone: [facility] 07-11-2024 11:32-0400 Heart rate 59 /min Evans Nolan MD Work Phone: [facility] 07-11-2024 11:32-0400 Respiratory rate 20 /min Evans Nolan MD Work Phone: [facility] 07-11-2024 11:32-0400 SaO2% (BldA) [Mass fraction] 91 % Evans Nolan MD Work Phone: [facility] Comment on above: Checked multiple fingers 07-11-2024 11:32-0400 Systolic blood pressure 121 mm[Hg] Evans Nolan MD Work Phone: [facility] 10-28-2023 11:53-0400 Diastolic Blood Pressure Non-Invasive 76 mm[Hg] DR ROMAINE CARR DO [facility] 10-28-2023 11:53-0400 Heart rate 60 /min DR ROMAINE CARR DO [facility] 10-28-2023 11:53-0400 Respiratory rate 16 /min DR ROMAINE CARR DO [facility] 10-28-2023 11:53-0400 Systolic Blood Pressure Non-Invasive 112 mm[Hg] DR ROMAINE CARR DO [facility] 10-28-2023 11:46-0400 Body weight 155.[address] ROMAINE CARR DO [facility] 10-28-2023 10:29-0400 Diastolic Blood Pressure Non-Invasive 77 mm[Hg] DR ROMAINE CARR DO [facility] 10-28-2023 10:29-0400 Heart rate 67 /min DR ROMAINE CARR DO [facility] 10-28-2023 10:29-0400 Respiratory rate 16 /min DR ROMAINE CARR DO [facility] 10-28-2023 10:29-0400 Systolic Blood Pressure Non-Invasive 132 mm[Hg] DR ROMAINE CARR DO [facility] 10-28-2023 09:42-[address] ROMAINE CARR DO [facility] 10-28-2023 09:42-[address] ROMAINE CARR DO [facility] 10-28-2023 09:42-0400 Body temperature 98.24 [degF] DR ROMAINE CARR DO [facility] 10-28-2023 09:42-0400 Diastolic Blood Pressure Non-Invasive 74 mm[Hg] DR ROMAINE CARR DO [facility] 10-28-2023 09:42-0400 Heart rate 65 /min DR ROMAINE CARR DO [facility] 10-28-2023 09:42-0400 Respiratory rate 18 /min DR ROMAINE CARR DO [facility] 10-28-2023 09:42-0400 Systolic Blood Pressure Non-Invasive 109 mm[Hg] DR ROMAINE CARR DO [facility] 06-29-2022 12:55-0400 Diastolic Blood Pressure Non-Invasive [address] BYRON DÍAZ MD [facility] 06-29-2022 12:55-0400 Heart rate 68 /min DR BYRON DÍAZ MD [facility] 06-29-2022 12:55-0400 Respiratory rate 18 /min DR BYRON DÍAZ MD [facility] 06-29-2022 12:55-0400 Systolic Blood Pressure Non-Invasive [address] BYRON DÍAZ MD [facility] 06-29-2022 11:24-0400 Body temperature 96.62 [degF] DR BYRON DÍAZ MD [facility] 06-29-2022 11:24-0400 Diastolic Blood Pressure Non-Invasive [address] BYRON DÍAZ MD [facility] 06-29-2022 11:24-0400 Heart rate 66 /min DR BYRON DÍAZ MD [facility] 03-19-2023 11:24-0400 Respiratory rate 23 /min DR BYRON DÍAZ MD [facility] 06-29-2022 11:24-0400 Systolic Blood Pressure Non-Invasive [address] BYRON DÍAZ MD [facility] 11-21-2021 16:49-0400 Diastolic blood pressure 65 mm[Hg] PHIL SMITH MD [facility] 11-21-2021 16:49-0400 Heart rate 60 /min PHIL SMITH MD [facility] 11-21-2021 16:49-0400 Respiratory rate 18 /min PHIL SMITH MD [facility] 11-21-2021 16:49-0400 Systolic blood pressure 112 mm[Hg] PHIL SMITH MD [facility] 11-21-2021 15:18-0400 Body temperature 98.24 [degF] PHIL SMITH MD [facility] 11-21-2021 15:18-0400 Body weight 127 kg PHIL SMITH MD [facility] 11-21-2021 15:18-0400 Diastolic blood pressure 73 mm[Hg] PHIL SMITH MD [facility] 11-21-2021 15:18-0400 Heart rate 62 /min PHIL SMITH MD [facility] 11-21-2021 15:18-0400 Respiratory rate 20 /min PHIL SMITH MD [facility] 11-21-2021 15:18-0400 Systolic blood pressure 108 mm[Hg] PHIL SMITH MD [facility] 03-15-2021 10:06-0500 Body temperature 96.62 [degF] DR NENA COSBY MD [facility] 03-15-2021 10:06-0500 Diastolic Blood Pressure NBP [address] NENA COSBY MD [facility] 03-15-2021 10:06-0500 Heart rate 68 /min DR NENA COSBY MD [facility] 03-15-2021 10:06-0500 Reason For Taking VItal Signs DR NENA COSBY MD [facility] 03-15-2021 10:06-0500 Respiratory rate 16 /min DR NENA COSBY MD [facility] 03-15-2021 10:06-0500 Systolic Blood Pressure NBP [address] NNEA COSBY MD [facility] 03-15-2021 09:58-0500 Body temperature 97.16 [degF] DR NENA COSBY MD [facility] 03-15-2021 09:58-0500 Diastolic Blood Pressure NBP [address] NENA COSBY MD [facility] 03-15-2021 09:58-0500 Heart rate 77 /min DR NENA COSBY MD [facility] 03-15-2021 09:58-0500 Mean blood pressure 75 mm[Hg] DR NENA COSBY MD [facility] 03-15-2021 09:58-0500 Respiratory rate 16 /min DR NENA COSBY MD [facility] 03-15-2021 09:58-0500 Systolic Blood Pressure NBP [address] NENA COSBY MD [facility] 03-15-2021 09:43-0500 Body temperature 96.8 [degF] DR NENA COSBY MD [facility] 03-15-2021 09:43-0500 Diastolic Blood Pressure NBP [address] NENA COSBY MD [facility] 03-15-2021 09:43-0500 Heart rate 78 /min DR NENA COSBY MD [facility] 03-15-2021 09:43-0500 Mean blood pressure 69 mm[Hg] DR NENA COSBY MD [facility] 03-15-2021 09:43-0500 Respiratory rate 16 /min DR NENA COSBY MD [facility] 03-15-2021 09:43-0500 Systolic Blood Pressure NBP [address] NENA COSBY MD [facility] 03-15-2021 09:35-0500 Heart rate 81 /min DR NENA COSBY MD [facility] 03-15-2021 09:15-0500 Body temperature 96.8 [degF] DR NENA COSBY MD [facility] 03-15-2021 09:06-0500 Body temperature 96.8 [degF] DR NENA COSBY MD [facility] 03-15-2021 07:35-0500 Body height 154.[address] NENA COSBY MD [facility] 03-15-2021 07:35-0500 Body weight 123.[address] NENA COSBY MD [facility] 03-15-2021 07:35-0500 Diastolic blood pressure 70 mm[Hg] DR NENA COSBY MD [facility] 03-15-2021 07:35-0500 Heart rate 65 /min DR NENA COSBY MD [facility] 03-15-2021 07:35-0500 Systolic blood pressure 103 mm[Hg] DR NENA COBSY MD [facility] 03-04-2021 09:05-0500 Body height [address] NENA COSBY MD [facility] 03-04-2021 09:05-0500 Body temperature 97.52 [degF] DR NENA COSBY MD [facility] 03-04-2021 09:05-0500 Body weight [address] NENA COSBY MD [facility] 03-04-2021 09:05-0500 diastolic 77 mm[Hg] DR NENA COSBY MD [facility] 03-04-2021 09:05-0500 Heart rate 77 /min DR NENA COSBY MD [facility] 03-04-2021 09:05-0500 systolic 113 mm[Hg] DR NENA COSBY MD [facility] Encounters Encounter Date Encounter Type Care Provider Facility Start: 01-30-2025 ambulatory Grace Argueta Facility :[facility] Start: 01-13-2025 ambulatory Grace Argueta Facility :[facility] Start: 01-04-2025 End: 01-04-[address] Grace Argueta MD -[facility] Work Phone: Start: 01-04-2025 End: 01-04-[address] Berna Howell MD Work Phone: -[facility] Start: 01-03-2025 End: 01-03-[address] Berna Howell MD Work Phone: -Ultrasound [facility] Start: 01-03-2025 End: 01-03-2025 Patient encounter procedure Peace Beaver PA -Ultrasound [facility] Work Phone: Start: 01-03-2025 End: 01-03-2025 ambulatory Peace Beaver Facility:[facility] Start: 12-20-2024 End: 12-20-2024 Patient encounter procedure Peace YOUNG -[facility] Work Phone: Start: 12-20-2024 End: 12-20-[address] Berna Howell MD Work Phone: [facility] Start: 12-16-2024 End: 12-16-2024 ambulatory [employer] Facility:[facility] Start: 12-16-2024 End: 12-16-2024 Patient encounter procedure [employer] SUPER[employer] [facility] Start: 12-13-2024 End: 12-17-2024 ambulatory BERNA HOWELL MD Facility:[facility] [place] Start: 12-13-2024 End: 12-17-2024 Outreach Lab [employer] [facility] Start: 12-05-2024 Non-patient / Non-visit Jose Bermudez nd DO -[facility] Start: 12-05-2024 End: 12-05-2024 Admission to same day surgery center Jose Pettit DO -Endoscopy Work Phone: Start: 12-05-2024 End: 12-05-[address] Berna Howell MD Work Phone: -Endoscopy Start: 11-22-2024 ambulatory BERNA HOWELL MD Faci lity:[facility] Start: 10-13-2024 End: 10-13-2024 Patient encounter procedure Peace Beaver [facility] Work Phone: Start: 10-13-2024 End: 10-13-[address] Berna Howell MD Work Phone: -[facility] Start: 10-03-2024 End: 10-03-2024 ambulatory BERNA HOWELL MD Facility:[facility] [place] Start: 10-03-2024 End: 10-03-2024 Patient encounter procedure BERNA HOWELL MD [facility] Start: 09-12-2024 End: 09-12-2024 Emergency department patient visit DR MARY CARMEN PARDO MD [facility] Start: 08-08-2024 End: 10-07-2024 ambulatory BERNA HOWELL MD Facility:[facility] [place] Start: 08-08-2024 End: 10-07-2024 Physical therapy management BERNA HOWELL MD [facility] Start: 08-05-2024 End: 08-05-2024 ambulatory BERNA HOWELL MD Facility:[facility] [place] Start: 08-05-2024 End: 08-05-2024 Patient encounter procedure BERNA HOWELL MD [facility] Start: 07-11-2024 End: 07-11-2024 Emergency department patient visit PHIL SMITH MD Facility:[facility] Start: 07-11-2024 End: 07-11-2024 Office outpatient visit 15 minutes Evans Nolan MD Work Phone: [facility] Comment on above: Abdominal pain, left lower quadrant (Primary Dx); History of diverticulosis; MUNOZ (dyspnea on exertion); Hypoxia Start: 07-11-2024 End: 07-11-2024 ambulatory BERNA HOWELL Facility:[id number] Start: 02-17-2024 End: 02-17-2024 ambulatory BERNA HOWELL MD Facility[place] [place] Start: 02-17-2024 End: 02-17-2024 Patient encounter procedure BERNA HOWELL MD [facility] Start: 11-27-2023 End: 11-27-2023 ambulatory BERNA HOWELL MD Facility:[facility] Start: 11-27-2023 End: 11-27-2023 Patient encounter procedure BERNA HOWELL MD [facility] Start: 11-24-2023 End: 11-24-2023 ambulatory BERNA HOWELL MD Facility:[facility] Start: 11-10-2023 End: 11-10-2023 ambulatory BERNA HOWELL MD Facility:[facility] Start: 10-28-2023 End: 10-28-2023 Emergency department patient visit DR ROMAINE CARR DO [facility] Start: 10-28-2023 ambulatory BERNA HOWELL MD Faci lity:[facility] Start: 10-27-2023 End: 10-27-2023 ambulatory BERNA HOWELL MD Facility:[facility] Start: 12-22-2022 End: 12-26-2022 ambulatory BERNA HOWELL MD Facility:[facility] Start: 12-22-2022 End: 12-26-2022 Outreach Lab BERNA HOWELL MD [facility] Start: 06-29-2022 End: 06-29-2022 Emergency department patient visit DR BYRON DÍAZ MD [facility] Start: 11-21-2021 End: 11-21-2021 Emergency department patient visit PHIL SMITH MD [facility] Start: 03-15-2021 End: 03-15-[address] NENA COSBY MD [facility] Start: 03-04-2021 End: 03-04-[address] NENA COSBY MD [facility] Procedures Date Procedure Procedure Detail Performing Clinician [...] Screening for malign ant neoplasm of colon [facility] Start: 01-13-2025 Measurement of respiratory function [facility] Start: 01-04-2025 Evaluation of diagno stic study results [facility] Start: 12-05-2024 Colonoscopy DIAGNOSTIC COLONOSCOPY [facility] Start: 12-05-2024 Colonoscopy flx dx w/collj spec when pfrmd DIAGNOSTIC COLONOSCOPY [facility] Start: 12-05-2024 Endoscopy upper smal l intestine w/biopsy SMALL BOWEL ENDOSCOPY/BIOPSY [facility] Start: 12-05-2024 Patient discharge [facility] Start: 12-13-2023 Covid-19 Vaccine ( season) Covid-19 Vaccine ( season) [facility] Start: 12-13-2023 Influenza vaccination Influenza Vacc ine (#1) [facility] Start: 11-17-2019 Diabetes Screening Diabetes Screenin g [facility] Start: 11-17-2019 Lipid panel Lipid Screening [facility] Start: 11-17-2019 Screening for malign ant neoplasm of colon [facility] Start: 2014 Screening for malign ant neoplasm of breast Mammogram Screening [facility] Start: 10-24-2011 Urine microalbumin profile DTaP,Tdap,Td Vaccine (1 - Tdap) [facility] Start: 11-17-1995 Screening for malign ant neoplasm of cervix Cervical Cancer Screening [facility] Start: 1993 Hepatitis B Vaccine (1 of 3 - 19+ 3-dose series) Hepatitis B Vaccine (1 of 3 - 19+ 3-dose series) [facility] Start: 1992 Anxiety Screening Anxiety Screening [facility] Start: 1992 Depression Screening Depression Scre ening [facility] Start: 1992 Hepatitis C screening Hepatitis C Sc reening [facility] Start: 1992 HIV screening HIV Screening [facility] Liver stiffness by US.transient elastography [facility] Measurement of respiratory function [facility] NM Heart Views W str ess and W radionuclide IV [facility] Immunizations Immunization Date Immunization Notes Care Provider Fa maria m 08-21-2020 SARS-CoV-2 (COVID-19 ) Ad26 vaccine, recombinant DR NENA COSBY MD [facility] 12-08-2016 influenza virus vaccine, unspecified formulation DR NENA COSBY MD [facility] 01-11-2015 influenza virus vaccine, unspecified formulation DR NENA COSBY MD [facility] 10-23-2011 tetanus and diphther ia toxoids, adsorbed, preservative free, for adult use (5 Lf of tetanus toxoid and 2 Lf of diphtheria toxoid) DR NENA COSBY MD [facility] Payers Date Payer Category Payer Self-pay 2024 Unknown [id number] 2024 Private Health Insurance [id number] 2024 [facility] BLUE CARD PPO OOS [id number] 2024 Unknown [id number] 2024 Unknown [id number] 2023 Unknown [id number] 2023 Private Health Insurance [id number] 2022 Unknown [id number] 1975 Unknown [id number] 2.16840.1.815713.3.579.2. 1974 Unknown [id number] .840.1.358870.3.579.2. 1974 Unknown [id number] .840.1.254874.3.579.2. 1974 Unknown [id number] .840.1.504267.3.579.2 1974 Unknown [id number] .840.1.193537.3.579.2 1974 Unknown [id number] .840.1.214098.3.579.2. 1974 Unknown [id number] .840.1.642527.3.579.2. 1974 Unknown [id number] .840.1.819443.3.579.2. 1974 Unknown [id number] 840.1.490822.3.579.2. 1974 Unknown [id number] .840.1.234244.3.579.2. 1974 Unknown [id number] 16840.1.279483.3.579.2. 1974 Unknown [id number] .16840.1.458662.3.579.2. 1974 Unknown [id number] 16840.1.533001.3.579.2. 1974 Unknown [id number] 2.16.840.1.840804.3.579.2. 627 1974 Unknown [id number] 2.16.840.1.513809.3.579.2. 627 1974 Unknown [id number] 2.16.840.1.565737.3.579.2. 627 1974 Unknown [id number] 2.16.840.1.638276.3.579.2. 627 1974 Unknown [id number] 2.16.840.1.807136.3.579.2. 627 Unknown [id number] Unknown [id number] 2.16.840.1.949176.3.579.2. 462 Unknown [id number] 2.16.840.1.983226.3.579.2. 462 Unknown [id number] 2.16.840.1.346380.3.579.2. 462 Unknown [id number] 2.16.840.1.910341.3.579.2. 462 Unknown [id number] 2.16.840.1.584335.3.579.2. 462 Unknown [id number] 2.16.840.1.789526.3.579.2. 462 Unknown [id number] 2.16.840.1.090342.3.579.2. 462 Unknown [id number] 2.16.840.1.768127.3.579.2. 462 Social History Date Type Detail Facility Start: 11-26-2018 End: 01-04-2025 Never smoked tobacco (finding) [facility] Start: 1975 Sex Assigned At Female A [facility] Start: 09-01-2022 Tobacco use and exposure Smoke less tobacco non-user [facility] Start: 07-11-2024 Alcoholic beverage intake Ex-drinker (finding) [facility] Start: 09-01-2022 End: 07-11-2024 History of Social function [facility] Start: 09-01-2022 End: 07-11-2024 Tobacco use panel [facility] Adult Depression Screening Assessment 1 [facility] Start: 07-11-2024 [facility] Start: 1975 Sex assigned at Not on file C [facility] Sexual Orientation [facility] Start: 10-06-2018 Sex Female (finding) [facility] Tobacco smoking stat us WAIS Unknown if ever smoked [facility] Work Phone: Goals Date Patient Goal Desired Activity /State Functional Status Date Assessment Result Facility 10-28-2023 Functional Status Independent [facility] 10-28-2023 Functional Status Standard Safet y ID band on, Call device within reach, Bed in low position [facility] 06-29-2022 Functional Status Independent [facility] 06-29-2022 Functional Status Standard Safet y ID band on, Call device within reach, Bed in low position, Wheels locked, Safety level maintained [facility] 11-21-2021 Functional Status Standard Safet y ID band on, Call device within reach, Bed in low position, Wheels locked, Upper/Half-Length side-rails up, Bedside Cart Locked, Safety level maintained [facility] Mental Status Date Assessment Result Facility 12-05-2024 Cognitive function Voice/Name [facility] Work Phone: 10-28-2023 Mental Status Orientation Oriented x 4 [facility] 06-29-2022 Mental Status Orientation Oriented x 4 [facility] 11-21-2021 Mental Status Orientation Oriented x 4 [facility] Clinical Notes 03-15-2021 to 01-05-2025 Note Date & Type Note Facility 01-05-2025 Radiology Diagnostic study note [facility] Imaging Services [address] [place] [address] ABD Limited w/ Elastography MR#: [id number] Acct: [id number] Name: RAIN MURPHY Rep #: [id number] : 1975 F 49 From: Kenia Champion MD PCP: Dr. Berna Howell MD Status: REG CLI Study:ABD Limited w/ Elastography Date of Exa m: 01/03/25 Exam# [id number] Ordering Dr: Peace Beaver PROCEDURE: ABD LIMITED W/ ELASTOGRAPHY, 01/03/2025 REASON FOR EXAM: ESOPHAGEAL VARICES COMPARISON: None TECHNIQUE: Grayscale and color Doppler imaging of the right upper quadrant was performed. Elastography was performed for non-invasive assessment of liver tissue stiffness utilizing a [employer] S-shear wave imaging unit. FINDINGS: Liver: Slightly [...] (15kPa): Significant fibrosis / cirrhosis Reading Location: [id number] CC: Dr. Berna Howell MD; HECTOR [place] ~ Is Consultant: Signed [facility] 01-04-2025 Progress note [facility] 12-16-2024 Note Exam Date Time Procedure Performing Provider Status 12/16/24 7:59 AM US Pelvis Non-OB W/Transvaginal Mariela KIM DO; Auth (Verified) [id number] ORIGINAL EXAMINATION: TRANSVAGINAL PELVIC ULTRASOUND 12/16/2024 TECHNIQUE: [...] Sigifredo Kim DO Preliminary Report By: Sigifredo iKm DO Electronically signed By Sigifredo Kim DO Dictated Date: 12/16/2024 9:23:59 AM Prelim Date: 12/16/2024 9:25:41 AM Sign Date: 12/16/2024 9:25:41 AM Ordering Provider: PEACE LEUNG [facility]09-02-2025 NoteEvent Display: GY Interp Adequacy SATISFACTORY FOR EVALUATION Endocervical/Transformational zone component present PAKO Linda (ASCP) Kimber:MATHEW; Authored Date: [id number] [facility] 08-25-2025 Consult note [facility] Medical Records Department [address] [facility] [place] [address] Anesthesia Postop Eval II 12/05/24 0942 MR#: [id number] Acct: [id number] Name: RAIN MURPHY Rep #: [id number] : 1975 49 From: James Rivera MD PCP: Dr. Berna Howell MD Status:REG SDC Y Race: C Location: [place] [address] Anesthesia Postop Eval I Sum Postop Eval [...] James Alcantaraignnevaeh Signature: Date CC: ~ Signed [facility]08-25-2025 Procedure note [facility] Medical Records Department [address] [place] [address] Colonoscopy Report MR#: [id number] Acct: [id number] Name: RAIN MURPHY Rep #: [id number] : 1975 49 From: Jose Pettit DO PCP: Dr. Berna Howell MD Status:[facility] Patient Name: Rain Murphy Procedure Date: 12/05/2024 [...] screening purposes. Procedure Code(s): --- Professional --- 75200, Colonoscopy, flexible; diagnostic, including collection of specimen(s) by brushing or washing, when performed (separate procedure) CPT copyright 2021 [employer]. All rights reserved. The codes documented in this report are preliminary and upon cash shortage investigator review may be revised to meet current compliance requirements. Jose Pettit DO 12/05/2024 9:22:01 AM This report has been signed electronically. Number of Addenda: 0 Note Initiated On: 12/05/2024 8:54 AM 12/05/24921 Date _ Jose Bauman Signature: Date (if indicated) CC: Dr. Berna Howell MD; Jose Pettit DO ~ Date Dictated: 12/05/24853 Date Transcribed: Is Consultant: RF Signed [facility]08-25-2025 Procedure note [facility] Medical Records Department [address] [place] [address] Provation Physician Letter MR#: [id number] Acct: [id number] Name: RAIN MURPHY Rep #: [id number] : 1975 49 From: Jose Pettit DO PCP: Dr. Berna Howell MD Status:REG [facility] 12/05/2024 Berna Howell Re : Colonoscopy procedure [...] ~ Date Dictated: 12/05/24 0854 Date Transcribed: Is Consultant: RF Signed [facility]08-25-2025 Procedure note [facility] Medical Records Department [address] [place] [address] EGD Report MR#: [id number] Acct: [id number] Name: RAIN MURPHY Rep #: [id number] : 1975 49 From: Jose Pettit DO PCP: Dr. Berna Howell MD Status:REG [facility] Patient Name: Rain Murphy Procedure Date: 12/05/2024 [...] pathology results. Procedure Code(s): --- Professional --- 59292, Small intestinal endoscopy, enteroscopy beyond second portion of duodenum, not including ileum; with biopsy, single or multiple CPT copyright 2021 [employer]. All rights reserved. The codes documented in this report are preliminary and upon cash shortage investigator review may be revised to meet current compliance requirements. Jose Pettit DO 12/05/2024 9:19:46 AM This report has been signed electronically. Number of Addenda: 0 Note Initiated On: 12/05/2024 8:36 AM 12/05/24 0919 Date _ Jose Pettit DO Cosnabil Signature: Date (if indicated) CC: Dr. Berna Howell MD; Jose Pettit DO ~ Date Dictated: 12/05/2436 Date Transcribed: Is Consultant: RF Signed [facility]08-25-2025 Procedure note [facility] Medical Records Department [address] [place] [address] Provation Physician Letter MR#: [id number] Acct: [id number] Name: RAIN MURPHY Rep #: [id number] : 1975 49 From: Jose Pettit DO PCP: Dr. Berna Howell MD Status:REG [facility] 12/05/2024 Berna Howell Re : Upper GI endoscopy procedure for Rain Murphy Dear Datne This procedure was performed on Thursday, December [...] Fu Date Dictated: 12/05/24 0836 Date Transcribed: Is Consultant: RF Signed [facility]08-25-2025 Consult note [facility] Medical Records Department [address] [place] [address] Anesthesia Postop Eval I 12/05/24 0916 MR#: [id number] Acct: [id number] Name: RAIN MURPHYN Rep #: [id number] : 1975 49 From: Talon Parmar PCP: Dr. Berna Howell MD Status:REG SD Y Race: C Location: [place] [address] Anesthesia: Postop Eval I Current Vital Signs [...] Talon Aguirre Signature: Date CC: ~ Signed [facility]08-25-2025 Consult note [facility] Medical Records Department [address] [place] [address] Pre-Anesthesia Evaluation 12/05/24 0819 MR#: [id number] Acct: [id number] Name: RAIN MURPHY Rep #: [id number] : 1975 49 From: James Rivera MD PCP: Dr. 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 Female Yes 12/01/24 10:35 HX of Motion [...] 12/05/24 07:32 Respiratory Assessment Respiratory Assessment - fire 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: Respiratory Tract Infection Hx - fire 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 Hx Respiratory Tract Infection No 12/01/24 10:35 STOP Sleep Apnea STOP Sleep Apnea - fire 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: STOP Sleep Apnea - fire 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 Hx Hypertension Yes 12/01/24 10:35 Hx Sleep [...] Tobacco Use History Tobacco Use History - fire 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: Tobacco Use History - fire 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 Tobacco Use Smoking Status Never smoker 12/01/24 10:35 Hx Tobacco Use No 12/01/24 10:35 Years Smoking Packs Smoked per Day Smoking Cessation Date was within the last 15 years Hx Smoking Cessation Date Hx Smoking Cessation Counseling Hematologic Medial History Hematologic Hx - fire 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 Specify any problems Hx of Preganancy in last 3 No 12/01/24 10:35 Months Nurse Filling Out Transfusion [employer] 12/01/24 10:35 & Questions: Date: 12/01/24 12/01/24 10:35 Time: 10:46 12/01/24 10:35 Patient unable to answer at this time (ie. 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 Berna Howell MD Status:[facility] Location: [place] [address] HPI - General General Date of Admission: 12/05/24 Date of Service: 12/05/24 Chief Complaint: Intermittent constipation with abdominal pain followed by occasional nausea vomiting with breakthrough heartburn HPI Narrative RAIN MURPHY, is a 49 F who presents with the Chief Complaint: constipation and abdominal pain [facility] ED 6.2.25 wiht LLQ pain. Pt with [...] a dayand has breakbothoura heartburn on occasion. [facility] Medical History H/O psoriasis Post-menopausal Wears glasses [...] Berna Howell MD; Jose Pettit DO~ Signed [facility]08-25-2025 [facility] Medical Records Department [address] [place] [address] History Physical Exam 12/05/24 0804 MR#: [id number] Acct: [id number] Name: RAIN MURPHY Rep #: [id number] : 1975 49 From: Jose Pettit DO PCP: Dr. Berna Howell MD Status:REG [facility] Location: [place] [address] HPI - General General Date of Admission: 12/05/24 Date of Service: 12/05/24 Chief Complaint: Intermittent constipation with abdominal pain followed by occasional nausea vomiting with breakthrough heartburn HPI Narrative RAIN MURPHY, is a 49 F who presents with the Chief Complaint: constipation and abdominal pain [facility] ED 6.2.25 wiht LLQ pain. Pt with [...] day and has breakbothoura heartburn on occasion. [facility] Medical History H/O psoriasis Post-menopausal Wears glasses [...] here today for worsen (more content not included)...[facility] 10-13-2024 Evaluation note* Diagnosis Onset Date Resolution Status Admit Date Constipation acute October 13 7:16am GERD (gastroesophageal reflu x disease) acute October 13, 2024 7 :16am Hx of colonic polyps acute October 13, 2024 7:16am Constipation acute December 05, 2024 7:08am GERD (gastroesophageal reflu x disease) acute December 05 7:08am Hx of colonic polyps acute 2024 7:08am [facility] Work Phone: 1(686) 894-260207-03-2025 Evaluation note* Diagnosis Onset Date Resolution Status Admit Date Constipation acute October 13 7:16am GERD (gastroesophageal reflu x disease) acute October 13, 2024 7 :16am Hx of colonic polyps acute October 13, 2024 7:16am Constipation acute December 05, 2024 7:08am GERD (gastroesophageal reflu x disease) acute December 05 7:08am Hx of colonic polyps acute 2024 7:08am Esophageal varices acute 2024 7:36am [employer] Work Phone: 1(673) 520-992907-03-2025 Evaluation note* Diagnosis Onset Date Resolution Status [...] 2025 9:55am Hypertension chronic January 042024 9:55am [facility] Work Phone: 1(261) 575-922706-02-2025 Hospital Discharge instructions Patient Education 09/12/2024 14:51:30 [...] foods again, start with small amounts of ihxw-yw-zsyztj, low- fat foods. These include apple sauce, [...] increase stomach acid. Don't use aspirin or ylzy-ptb-udaapcn pain and fever medicines, if possible. This includes nonsteroidal anti-inflammatory drugs (NSAIDs). Lose excess weight. Finish eating at least 2 hours before you go to bed or lie down. Raise the head of your bed. 7471-9330 [employer]. [address] [place] [address], [place] [address]. All rights reserved. This information is not intended as a substitute for professional medical care. Always follow yourhealthcare professional's instructions. Follow Up Care 09/12/2024 13:26:52 With:BERNA HOWELL MD Address: [place] [address]- When:2-[address] [facility] 06-02-2025 Emergency department Discharge summary Discharge Instructions Thank you for allowing [facility] to assist you with your healthcare needs. The following is importantdischarge information regarding your hospital visit. Diagnosis from Today's Visit Abdominal pain What to Do Next Instructions from Your Care Team No qualifying data available. Post Acute Orders No qualifying data available. You Need to Schedule the Following Appointments Follow Up with BERNA HOWELL MD When:Within 2-4 days Where:[place] [address]- Allergies Bactrim Blisters propofol Anxiety [...] foods again, start with small amounts of wtoh-pq-sjjygl, low- fat foods. These include apple sauce, [...] increase stomach acid. Don't use aspirin or xxdp-zlv-onccxon pain and fever medicines, if possible. This includes nonsteroidal anti-inflammatory drugs (NSAIDs). Lose excess weight. Finish eating at least 2 hours before you go to bed or lie down. Raise the head of your bed. 4257-2309 [employer]. [address] [place] [address], [place] [address]. All rights reserved. This information is not intended as a substitute for professional medical care. Always follow yourhealthcare professional's instructions. Additional Information VACCINATE! IT SAVES LIVES! Members of the community who have not yet received the COVID-19 vaccine and would like to receive it can visit one of [facility] vaccine clinics. There are many vaccine clinic locations within the [facility]. For locations and available times, please visit www.gettheshot.coronavirus.[place].gov/. It is important to note that some COVID mobile vaccine clinics are held outdoors and may be canceled in rainy or stormy conditions. To learn more about pediatric vaccinations (ages 5-11), we invite you to visit the [facility] webpage. https://www.StockTwitss.org/pages/0722-Vbxrz-Zjpadysakzc-Wgrzqmogfe-Wobot-Ysq stions.htmlTo learn more about the COVID-19 vaccine, we invite you to visit the CDC website for a list of frequently asked questions. https://www.cdc.gov/coronavirus/2019-ncov/vaccines/faq.html [facility] Patient Portal Access Instructions: Stay connected with your healthcare team and access your personal medical information anytime with the [facility] Patient Portal. If you would like a full copy of your medical records please contact the [facility] Medical Records Department Thursday through Thursday between 8a.m. and 4:30p.m. Please follow the directions below to access the portal: 1.Access the email account you provided upon registration to the [facility].2.Look for an invitation email from [facility].3.Open the email and access the invitation link: Accept Invitation to [facility]4.Fill in the required de la garza to create your account. Sign into www.[employer]ex[employer] with your username and password that you [...] you will allow to register on the [facility] Patient Portal for access to your information. You can also access the [facility] Patient Portal on the [employer] Windows. Simply click on Health Records under BlockTrail and then click on the Emergent One logo. HOW TO SAFELY DISPOSE OF PRESCRIPTION [...] Call your local pharmacy or go to http://Room Choice.ViralGains/5Z0Le0q to find one close to you.3.Make use of household items: Use cat litter or old coffee grounds to dispose medications if other options arenot available. Mix your drugs with these household products, seal them in an airtight container andthrow it into the garbage. Call [facility]: [phone] to be sure your drugs can be [...] aware that I should contact my doctor. Patient/Assistant Housekeeping Manager Signature: Date/Time: Relationship to Patient: Witness Name/Signature: Date/Time: [facility]06-02-2025 Note* Exam Date Time Procedure Performing Provider Status 09/12/24 2:[address] Abd/Pelvis w/ IV Contrast Only GRACE RIVERO MD; Auth (Verified) [id number] ORIGINAL EXAMINATION: CT OF THE ABDOMEN AND [...] 09/12/2024 2:36:04 PM Ordering Provider: ROSA GWYN [facility]03-31-2025 NoteHNO ID: [id number] Author: EVANS NOLAN MD Service: ? Author Type: Physician Type: Progress Notes Filed: 07/11/2024 12:29 Note Text: [facility] Murphy is a [...] hematuria. She has been referred to a claims consultant for dyspnea on exertion. Prior colon evaluations [...] treatment. She generally has her care at [facility] and will go to the ER therefore [...] The patient was other (comment) (Referred to [facility] ER). [facility]03-31-2025 History of Present illness Narrative* Evans Nolan MD - 07/11/2024 11:43 AM EDT [facility] Murphy is a [...] hematuria. She has been referred to a claims consultant for dyspnea on exertion. Prior colon evaluations [...] treatment. She generally has her care at [facility] and will go to the ER therefore [...] The patient was other (comment) (Referred to [facility] ER). [facility]* Exam Date Time Procedure Performing Provider Status 11/27/23 2:59 PM Echocardiogram, Adult - CV Auth (Verified) [facility] 07-17-2024 Evaluation + Plan note Future Scheduled Tests Radiology* CT Angiography Chest w/ Contrast 10/28/[address] [facility] 07-17-2024 Hospital Discharge instructions Patient Education 10/28/2023 [...] or as directed by your healthcare provider [id number] [employer]. [address] [place] [address]. All rights reserved. This information is not intended as a substitute for professional medical care. Always follow yourhealthcare professional's instructions. Follow Up Care 10/28/2023 09:34:39 With:BERNA HOWELL MD Address: [address] [facility] [place] [address]- When:2-[address] [facility] 07-17-2024 Note Discharge Instructions Thank you for allowing [facility] to assist you with your healthcare needs. The following is importantdischarge information regarding your hospital visit. Diagnosis from Today's Visit Dyspnea What to Do Next Instructions from Your Care Team No qualifying data available. Post Acute Orders No qualifying data available. You Need to Schedule the Following Appointments Follow Up with BERNA HOWELL MD When:Within 2-4 days Where:[address] [facility] [place] [address]- Allergies Bactrim Blisters propofol Anxiety sulfa drugs [...] or as directed by your healthcare provider [id number] [employer]. [address] [place] [address]. All rights reserved. This information is not intended as a substitute for professional medical care. Always follow yourhealthcare professional's instructions. Additional Information VACCINATE! IT SAVES LIVES! Members of the community who have not yet received the COVID-19 vaccine and would like to receive it can visit one of [facility] vaccine clinics. There are many vaccine clinic locations within the [facility]. For locations and available times, please visit www.gettheshot.coronavirus.[place].gov/. It is important to note that some COVID mobile vaccine clinics are held outdoors and may be canceled in rainy or stormy conditions. To learn more about pediatric vaccinations (ages 5-11), we invite you to visit the [facility] webpage. https://www.[facility].org/pages/4736-Trbgn-Axjsujoqkxo-Yzpywketyz-Dicza-Wag stions.htmlTo learn more about the COVID-19 vaccine, we invite you to visit the CDC website for a list of frequently asked questions. https://www.cdc.gov/coronavirus/2019-ncov/vaccines/faq.html [facility] Patient Portal Access Instructions: Stay connected with your healthcare team and access your personal medical information anytime with the [facility] Patient Portal. If you would like a full copy of your medical records please contact the [facility] Medical Records Department Thursday through Thursday between 8a.m. and 4:30p.m. Please follow the directions below to access the portal: 1.Access the email account you provided upon registration to the [facility].2.Look for an invitation email from [facility].3.Open the email and access the invitation link: Accept Invitation to [facility]4.Fill in the required de la garza to create your account. Sign into www.Nexalin Technology with your username and password that you [...] you will allow to register on the [facility] Patient Portal for access to your information. You can also access the [facility] Patient Portal on the [employer] jaskaran. Simply click on Health Records under BlockTrail and then click on the [facility] logo. [...] Call your local pharmacy or go to http://bit.ViralGains/8S2Sf1q to find one close to you.3.Make use of household items: Use cat litter or old coffee grounds to dispose medications if other options arenot available. Mix your drugs with these household products, seal them in an airtight container andthrow it into the garbage. Call [facility]: [phone] to be sure your drugs can be [...] aware that I should contact my doctor. Patient/Assistant Housekeeping Manager Signature: Date/Time: Relationship to Patient: Witness Name/Signature: Date/Time: [facility]07-17-2024 Note ORIGINAL EXAMINATION: CTA OF THE CHEST [...] Date: 10/28/2023 10:48:13 AM [facility] Note Sinus rhythm Prolonged TX interval Electronic Signature: ROMAINE CARR DO 10/28/2023 10:02:04[facility] 03-19-2023 Hospital Discharge instructions Patient Education 06/29/2022 [...] following occur: Loss of consciousness Vomiting blood [id number] [employer]. [address] [place] [address]. All rights reserved. This information is not intended as a substitute for professional medical care. Always follow yourhealthcare professional's instructions. Follow Up Care 06/29/2022 11:18:35 With:NENA COSBY Address: [address] [facility] [place] [address] [phone] Business (1) When:2-4 days With:BERNA HOWELL Address: [address] [facility] [place] [address]- Business (1) When:2-[address] [facility] 03-19-2023 Note Discharge Instructions Thank you for [...] NENA COSBY When Within 2-4 days Where: [address] [facility] [place] [address]- [phone] Business (1) Follow Up with BERNA HOWELL When Within 2-4 days Where: [address] [facility] [place] [address]- Business (1) Allergies Bactrim (Blisters) propofol (Anxiety) [...] GLYE kol) ClearLax, GaviLAX, Gialax, GlycoLax, MiraLax, [id number], SunMark ClearLax What is the most important [...] may report side effects to FDA at 6-172-IYR-6664. What other drugs will affect polyethylene glycol 3350? Other drugs may interact with polyethylene glycol 3350, including prescription and hvmz-tnz-fsswzjhmozxadcqo, vitamins, and herbal products. Tell each of [...] to ensure that the information provided by [employer]. ('[employer]') is accurate, up-to-date, and complete, but no guarantee is made to that effect. Drug information contained herein may be time sensitive. [employer] information has been compiled for use by healthcare practitioners and consumers in the [place] and therefore [employer] does not warrant that uses outside of the [place] are appropriate, unless specifically indicated otherwise. [employer] drug information does not endorse drugs, diagnose patients or recommend therapy. [employer] drug information isan informational resource designed to [...] or appropriate for any given patient. [facility] does not assume any responsibility for any aspect of healthcare administered with the aid of information [employer] provides. The information contained herein is not intended to cover all possible uses, directions, precautions, warnings, drug interactions, allergic reactions, or adverse effects. If you have questions about the drugs you are taking, check with your doctor, nurse or pharmacist. Copyright 7485-9283 [employer]. Version: 2.04. Revision Date: 07/16/2016. Education Materials [...] following occur: Loss of consciousness Vomiting blood 4421-4634 [employer]. [address] [place] [address]. All rights reserved. This information is not intended as a substitute for professional medical care. Always follow yourhealthcare professional's instructions. Additional Information VACCINATE! IT SAVES LIVES! Members of the community who have not yet received the COVID-19 vaccine and would like to receive it can visit one of [facility] vaccine clinics. There are many vaccine clinic locations within the [facility]. For locations and available times, please visit www.[email or web address].[place].gov/. It is important to note that some COVID mobile vaccine clinics are held outdoors and may be canceled in rainy or stormy conditions. To learn more about pediatric vaccinations (ages 5-11), we invite you to visit the [facility] webpage. https://www.[facility].org/pages/2959-Twzea-Gjwotsjpfnw-Ctbehtfzhn-Krrzk-Xwb stions.htmlTo learn more about the COVID-19 vaccine, we invite you to visit the CDC website for a list of frequently asked questions. https://www.cdc.gov/coronavirus/2019-ncov/vaccines/faq.html [facility] Patient Portal Access Instructions: Stay connected with your healthcare team and access your personal medical information anytime with the [facility] Patient Portal. If you would like a full copy of your medical records please contact the [facility] Medical Records Department Thursday through Thursday between 8a.m. and 4:30p.m. Please follow the directions below to access the portal: 1.Access the email account you provided upon registration to the [facility].2.Look for an invitation email from [facility].3.Open the email and access the invitation link: Accept Invitation to [facility]4.Fill in the required de la garza to [...] you will allow to register on the [facility] Patient Portal for access to your information. You can also access the [facility] Patient Portal on the [employer]. Simply click on Health Records under BlockTrail and then click on the Emergent One logo. HOW TO SAFELY DISPOSE OF PRESCRIPTION [...] Call your local pharmacy or go to http://bit.ViralGains/0D2Cn0i to find one close to you.3.Make use of household items: Use cat litter or old coffee grounds to dispose medications if other options arenot available. Mix your drugs with these household products, seal them in an airtight container andthrow it into the garbage. Call [facility]: [phone] to be sure your drugs can be [...] aware that I should contact my doctor. Patient/Assistant Housekeeping Manager Signature: Date/Time: Relationship to Patient: Witness Name/Signature: Date/Time: [facility]03-19-2023 Note ORIGINAL EXAMINATION: CT OF THE ABDOMEN [...] 06/29/2022 1:06:34 PM Ordering Provider: BYRON DÍAZ [facility]03-19-2023 Note ORIGINAL EXAMINATION: CT OF THE ABDOMEN [...] Sign Date: 06/29/2022 1:06:34 PM Ordering Provider: [facility]08-11-2022 Hospital Discharge instructions Patient Education [...] foods again, start with small amounts of zccd-gf-lfkxdj, low- fat foods. These include apple sauce, [...] increase stomach acid. Don't use aspirin or ssoz-mte-ziupaxn pain and fever medicines, if possible. This includes nonsteroidal anti-inflammatory drugs (NSAIDs). Lose excess weight. Finish eating at least 2 hours before you go to bed or lie down. Raise the head of your bed. 1384-9595 [employer]. [address] [place] [address], [place] [address]. All rights reserved. This information is not intended as a substitute for professional medical care. Always follow yourhealthcare professional's instructions. Follow Up Care 11/21/2021 15:11:51 With:BERNA HOWELL MD Address: [address] [place] [address]- When:2-[address] [facility] 08-11-2022 Emergency department Discharge summary Discharge Instructions Thank you for allowing [facility] to assist you with your healthcare needs. [...] Within 2-4 days Where: [place] [address]- Allergies Bactrim (Blisters) propofol (Anxiety) sulfa drugs Medications Please ask your primary doctor or pharmacist before taking any other medication not listed, including over the counter drugs, herbal medications, vitamins and or supplements as they may interact [facility]. What How Much When [...] foods again, start with small amounts of filx-mp-yshwmx, low- fat foods. These include apple sauce, [...] increase stomach acid. Don't use aspirin or kwxc-qtr-xevrqon pain and fever medicines, if possible. This includes nonsteroidal anti-inflammatory drugs (NSAIDs). Lose excess weight. Finish eating at least 2 hours before you go to bed or lie down. Raise the head of your bed. 8142-4225 [employer]. [address] [place] [address]. All rights reserved. This information is not intended as a substitute for professional medical care. Always follow yourhealthcare professional's instructions. Additional Information VACCINATE! IT SAVES LIVES! Members of the community who have not yet received the COVID-19 vaccine and would like to receive it can visit one of [facility] vaccine clinics. There are many vaccine clinic locations within the [facility]. For locations and available times, please visit www.[email or web address].[place].org. It is important to note that some COVID mobile vaccine clinics are held outdoors and may be canceled in rainy orstormy conditions. To learn more about pediatric vaccinations (ages 5-11), we invite you to visit the [facility] webpage. https://www.[facility].org/pages/8234-Ckawk-Ccvqsqmtini-Cytcpjaosl-Tlnln-Gtw stions.htmlTo learn more about the COVID-19 vaccine, we invite you to visit the [facility] website for a list of frequently asked questions. https://[employer]/assets/Rxzdqoba-[email or web address]-Gtgdwkrz/spmdx-Xqiqaax-Uhsdxxhmmn _Asked-Questions.pdf [facility] Patient Portal Access Instructions: Stay connected with your healthcare team and access your personal medical information anytime with the [facility] Patient Portal. If you would like a full copy of your medical records please contact the [facility] Medical Records Department Thursday through Thursday between 8a.m. and 4:30p.m. Please follow the directions below to access the portal: 1.Access the email account you provided upon registration to the [facility].2.Look for an invitation email from [facility].3.Open the email and access the invitation link: Accept Invitation to [facility].Fill in the required de la garza to create your account. Sign into www.[employer] with your username and password that you [...] you will allow to register on the [facility] Patient Portal for access to your information. You can also access the [facility] Patient Portal on the [employer] jaskaran. Simply click on Health Records under BlockTrail and then click on the Emergent One logo. HOW TO SAFELY DISPOSE OF PRESCRIPTION [...] Call your local pharmacy or go to http://Room Choice.ViralGains/[email or web address] to find one close to you.3.Make use of household items: Use cat litter or old coffee grounds to dispose medications if other options arenot available. Mix your drugs with these household products, seal them in an airtight container andthrow it into the garbage. Call [facility]: [phone] to be sure your drugs can be [...] aware that I should contact my doctor. Patient/Assistant Housekeeping Manager Signature: Date/Time: Relationship to Patient: Witness Name/Signature: Date/Time: [facility] [id number] Note ORIGINAL EXAMINATION: CT OF THE ABDOMEN [...] Date: 11/21/2021 4:11:15 PM [facility] Note ORIGINAL EXAMINATION: CT OF THE ABDOMEN [...] Date: 11/21/2021 4:11:15 PM Ordering Provider: PHIL [facility]12-03-2021 Hospital Discharge instructions Patient Education 03/15/2021 10:23:25 1-SDS Discharge Instructions Template (01/2018) (CUSTOM) [facility] SAME DAY SURGERY DISCHARGE INSTRUCTIONS PLEASE FOLLOW [...] us better serve our patients. Form: 1522 [id number]) R: 07/2003/15/2021 10:22:46 9 - AO Minor [...] a slower pace than normal. ?Eat soft, sinq-mw-aympxa foods. Take kkob-zhl-fyqedbi or prescription medicines only as told by [...] 11/11/2004 Document Revised: 01/20/2018 Document Reviewed: 06/10/2016 [employer] Patient Education 2020 [place]. Follow Up Care 12/11/2020 08:24:23 With:NENA COSBY MD Address: [phone] When: Unknown Comments:Follow-up as scheduled Follow-up as needed [facility] Consult note Author James Rivera [facility] Note Date/Time December 05, 2024 8: 20am [facility] Medical Records Department [address] [place] [address] Pre-Anesthesia Evaluation 12/05/24 08 MR#: [id number] Acct: [id number] Name: RAIN MURPHY Rep #: [id number] : 1975 49 From: James Rivera MD PCP: Dr. 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 Female Yes 12/01/24 10:35 HX of Motion [...] 12/05/24 07:32 Respiratory Assessment Respiratory Assessment - fire 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: Respiratory Tract Infection Hx - fire 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 Hx Respiratory Tract Infection No 12/01/24 10:35 STOP Sleep Apnea STOP Sleep Apnea - fire 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: STOP Sleep Apnea - fire 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 Hx Hypertension Yes 12/01/24 10:35 Hx Sleep [...] Tobacco Use History Tobacco Use History - fire 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: Tobacco Use History - fire 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 Tobacco Use Smoking Status Never smoker 12/01/24 10:35 Hx Tobacco Use No 12/01/24 10:35 Years Smoking Packs Smoked per Day Smoking Cessation Date was within the last 15 years Hx Smoking Cessation Date Hx Smoking Cessation Counseling Hematologic Medial History Hematologic Hx - fire 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 Specify any problems Hx of Preganancy in last 3 No 12/01/24 10:35 Months Nurse Filling Out Transfusion [employer]LE[employer] 12/01/24 10:35 & Questions: Date: 12/01/24 12/01/24 10:35 Time: 10:46 12/01/24 10:35 Patient unable to answer at this time (ie. confused, unrespo /Reproduction History /Reproductive History - fire 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: /Reproductive Hx- fire 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 Hx Now No 12/01/24 10:35 Gestational Age [...] MD Cosign Signature: Date CC: ~ Signed [facility] Work Phone: Consult note Author Talon Parmar [facility] Note Date/Time December 05, 2024 9: 17am [facility] Medical Records Department [address] [place] [address] Anesthesia Postop Eval I 12/05/24915 MR#: [id number] Acct: [id number] Name: RAIN MURPHY Rep #: [id number] : 1975 49 From: Talon Parmar PCP: Dr. Berna Howell MD Status:REG SDC Y Race: C Location: [place] [address] Anesthesia: Postop Eval I Current Vital Signs [...] Parmar Cosigner Signature: Date CC: ~ Signed [facility] Work Phone: Consult note Author James Rivera [facility] Note Date/Time December 05, 2024 9: 53am [facility] Medical Records Department [address] [place] [address] Anesthesia Postop Eval II 12/05/24941 MR#: [id number] Acct: [id number] Name: RAIN MURPHY Rep #: [id number] : 1975 49 From: James Rivera MD PCP: Dr. Berna Howell MD Status:REG [facility] Y Race: C Location: [place] [address] Anesthesia Postop Eval I Sum Postop Eval [...] MD Cosigner Signature: Date CC: ~ Signed [facility] Work Phone: Evaluation + Plan note Future Appointments Appointment Date:06/04/2021 07:30:00 AM Scheduled Provider:BERNA HOWELL MD Location:[facility] Appointment Type:PC OV Controlled Medication Future Scheduled Tests Laboratory* Reticulocytes (AO) 08/17/20 * Ferritin 08/17/20 * Iron Level 08/17/20 * Complete Blood Count 08/17/20 [facility] Evaluation + Plan note Future Appointments Appointment Date:11/29/2021 07:30:00 AM Scheduled Provider:BERNA HOWELL MD Location:[facility] Appointment Type:PC OV Controlled Medication [facility] Evaluation + Plan note Future Appointments Appointment Date:07/09/2022 08:30:00 AM Scheduled Provider:BERNA HOWELL MD Location:[facility] Appointment Type:PC OV Future Scheduled Tests Laboratory* Complete Blood Count 05/15/22 * Lipid Profile 05/15/22 * Vitamin D Level 05/15/22 * Complete Metabolic Panel 05/15/[address] [facility] Evaluation + Plan note Future Appointments Appointment Date:03/16/2023 08:00:00 AM Scheduled Provider: Location:[facility] Appointment Type:PC Nurse Lab Appointment Date:03/26/2023 07:00:00 AM Scheduled Provider:BERNA HOWELL MD Location:[facility] Appointment Type:PC OV Future Scheduled Tests Laboratory* Ferritin 12/26/22 * Iron Level 12/26/22 * Reticulocytes (AO) 12/26/22 * Complete Blood Count 12/26/22 * Reticulocytes - Panel 09/26/22 * Vitamin D Level 12/26/22 * Complete Metabolic Panel 12/26/[address] [facility] Evaluation + Plan note Future Appointments Appointment Date:11/05/2023 07:00:00 AM Scheduled Provider:BERNA HOWELL MD Location:[facility] Appointment Type:PC OV Appointment Date:11/19/2023 07:00:00 AM Scheduled Provider:BERNA HOWELL MD Location:[facility] Appointment Type:PC OV Controlled Medication Future Scheduled Tests Laboratory* Ferritin 12/26/22 * Iron Level 12/26/22 * Reticulocytes (AO) 12/26/22 * Complete Blood Count 12/26/22 * Vitamin D Level 12/26/22 * Complete Metabolic Panel 12/26/22 Radiology* CT Angiography Chest w/ Contrast 10/28/23 * CT Sinus 03/26/[address] [facility] One On Onealuation + Plan note Future Appointments Appointment Date:12/01/2023 11:30:00 AM Scheduled Provider:BERNA HOWELL MD Location:[facility] Appointment Type:PC OV Future Scheduled Tests Laboratory* Ferritin 12/26/22 * Iron Level 12/26/22 * Complete Blood Count 12/26/22 * Vitamin D Level 12/26/22 * Complete Metabolic Panel 12/26/22 Radiology* CT Angiography Chest w/ Contrast 10/28/23 * CT Sinus 03/26/[address] [facility] One On Onealuation + Plan note Future Appointments Appointment Date:02/25/2024 07:30:00 AM Scheduled Provider:BERNA HOWELL MD Location:[facility] Appointment Type:PC OV Future Scheduled Tests Radiology* CT Angiography Chest w/ Contrast 10/28/23 * CT Sinus 03/26/[address] [facility] Evaluation + Plan note Future Appointments Appointment Date:08/08/2024 07:00:00 AM Scheduled Provider:Osman Capps PT Location:[facility] Appointment Type:PT Outpatient Evaluation Appointment Date:10/04/2024 07:00:00 AM Scheduled Provider:BERNA HOWELL MD Location:[facility] Appointment Type:PC OV Future Scheduled Tests Laboratory* A1C Hemoglobin 07/28/24 * Complete Blood Count 07/28/24 * Lipid Profile 07/28/24 * Vitamin D Level 07/28/24 * Complete Metabolic Panel 07/28/24 Radiology* CT Angiography Chest w/ Contrast 10/28/[address] [facility] Evaluation + Plan note Future Appointments Appointment Date:10/04/2024 07:00:00 AM Scheduled Provider:BERNA HOWELL MD Location:[facility] Appointment Type:PC OV Future Scheduled Tests Laboratory* A1C Hemoglobin 07/28/24 * Complete Blood Count 07/28/24 * Lipid Profile 07/28/24 * Vitamin D Level 07/28/24 * Complete Metabolic Panel 07/28/24 Radiology* CT Angiography Chest w/ Contrast 10/28/[address] [facility] Evaluation + Plan note Future Appointments Appointment Date:10/04/2024 07:00:00 AM Scheduled Provider:BERNA HOWELL MD Location:[facility] Appointment Type:PC OV Future Scheduled Tests Radiology* CT Angiography Chest w/ Contrast 10/28/[address] [facility] Evaluation note* Diagnosis Abdominal pain, left lower quadrant- Primary History of diverticulosis Personal history of other diseases of digestive system MUNOZ (dyspnea on exertion) Other dyspnea and respiratory abnormality Hypoxia Hypoxemia documented in this encounter [facility] noteNo assessment information availableKindred [facility] Work Phone: History and physical note Author Jose Friend [facility] Note Date/Time December 05, 2024 8: 06am [facility] Medical Records Department [address] [place] [address] History & Physical Exam 12/05/24 0804 MR#: [id number] Acct: [id number] Name: RAIN MURPHY Rep #: [id number] : 1975 49 From: Jose Pettit DO PCP: Dr. Berna Howell MD Status:[facility] Location: [place] [address] HPI - General General Date of Admission: 12/05/24 Date of Service: 12/05/24 Chief Complaint: Intermittent constipation with abdominal pain followed by occasional nausea vomiting with breakthrough heartburn HPI Narrative RAIN MURPHY, is a 49 F who presents with the Chief Complaint: constipation and abdominal pain [facility] ED 6.2.25 wiht LLQ pain. Pt with [...] a dayand has breakbothoura heartburn on occasion. [facility] Medical History H/O psoriasis Post-menopausal Wears glasses [...] Berna Howell MD; Jose Pettit DO~ Signed [facility] Work Phone: Hospital course Narrative No data available for this section [facility] Hospital Discharge instructions No data available for this section [facility] Progress note No data available for this section [facility] Progress note Author Grace Argueta [facility] Note Date/Time January 04, 2025 10:38am [facility] [address] [place] [address] Carrie[address] [place] [address] OFFICE VISIT Date of Service: 01/04/25 MR#: [id number] Acct: [id number] Name: RAIN MURPHY Rep #: [id number] : 1975 Provider: Dr. Jean Argueta MD Age/Sex: 49/F Location[place] [facility] Status: Signed HPI HPI History of Present [...] air Intake Visit Reasons: SOB/FAM HX (SELF) Head Of Product Required: No Accompanied by: Self Is patient [...] applicable) CC: Dr. Berna Howell MD ~ [facility] Work Phone: Reason for referral (narrative)No reason for referral information availableKindred Hospital [facility] Work Phone: Summary Purpose Family History No Family History Records Found Relationship Condition Age at Onset Recorded Date/T ruchi father Dementia Unknown Depression Unknown Hypertension Unknown Hypercholesterolemia Unknown brother Hypertension Unknown Advance Directives No Advanced Directives Records Found Advance Directive Response Recorded Date/ Time Do you have a Healthcare Power of Paver? No December 01, 2024 10:35am Chief Complaint [...] section and content) DATE CREATED AUTHOR 07/25/2021 [facility] DATE CREATED AUTHOR AUTHOR'S ORGANIZ ATION 11/29/2023 [facility] [place] [facility] [place] DATE CREATED AUTHOR AUTHOR'S ORGANIZ ATION 07/12/2024 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 Member Role: Other Name: BERNA HOWELL MD Position: P4 Physician - Primary Care Med Service: Active Provider Member Role: Primary Care Physician Address: Address: [address] [place] [address] [place] Care Team Related Persons Name: NONE, Name: NA MURPHY Name: DOMINIQUE MURPHY Address: [address] [phone] Name: DOMINIQUE MURPHY Address: [address] [phone] [place] Name: DOMINIQUE MURPHY Address: [address] [phone] Name: DOMINIQUE MURPHY Address: [address] [phone] Patient Care team informatio n (unrecognized section and content) 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 [facility]. provides no warranty or guarantee of the accuracy or completeness of information in this document.
--- NOTE | 2025-01-30 17:53 | STRESSREP ---
Stress Test Report Pharmacologic myocardial perfusion stress test. 49-year-old lady with a history of shortness of breath. Resting EKG demonstrates sinus rhythm with a rate of 60 bpm. Resting blood pressure is 126/86 mmHg. 0.4 mg of regadenoson was infused per usual protocol followed by rapid intravenous saline flush injection. Continuous EKG monitoring was performed. The maximum heart rate was 88 bpm which was 51% of max impacted heart rate the maximum workload was 1 metabolic equivalent. At rest there were no ST or T wave changes noted to suggest ischemia and at peak infusion nonspecific ST changes were noted which did not meet the criteria for ischemia. No clinical angina is noted. The final blood pressure was 108/78 mmHg. Myocardial perfusion protocol. 15 point mCi of technetium 99m sestamibi was injected at rest. 0.4 mg of regadenoson was infused per usual protocol. At peak infusion 45.9 mCi of technetium 99m sestamibi was injected stress images were obtained stress and rest images were reconstructed and compared in the short axis vertical long and horizontal long axis. Gated images were also obtained. Perfusion SPECT analysis: Review of the stress images demonstrate normal uptake of tracer noted in all areas of the myocardium. The resting images similar demonstrated normal uptake of tracer noted in all areas of the myocardium. No areas of reversibility are noted to suggest ischemia and no previous infarct is noted. Gated SPECT analysis: The gated ejection fraction is 70%. Conclusion: Normal pharmacologic myocardial perfusion stress test. Preserved ejection fraction.
== END | disposition home or self-care (01) ==
LOC: CVS 06:45
PROVIDERS: PCP Family Medicine; Referring Provider Internal Medicine Cardiovascular Disease; Visit Provider Internal Medicine Cardiovascular Disease
DX: R06.09 Other forms of dyspnea (principal)
CPT/HCPCS: 78452; 93017; A9500; A4216; J2785